=== PATIENT | male | born 1955 | race Caucasian/White ===

== ENCOUNTER 2016-12-18 15:07 | Inpatient (IN) | payer OTHER ==
--- NOTE | 2016-12-18 15:14 | ER Document Report ---
Addendum entered and electronically signed by PALMIRA BAEZ NP 12/18/16 15:46 : Course - Re-evaluation Re-evalutation: 12/18/16 15:46 Patient extremely diaphoretic and pale in lobby. Patient complains of continued upper abdominal pain. marketing compliance manager advised of change in patient's status. Vital signs stable. Room assigned. - Vital Signs Vital signs: Temp Pulse Resp BP Pulse Ox 98.9 F 67 18 140/80 H 98 12/18/16 15:13 12/18/16 15:13 12/18/16 15:13 12/18/16 15:13 12/18/16 15:13 Original Note: ED Medical Screen (RME) - General Stated Complaint: ABDOMINAL PAIN Mode of Arrival: Medic Information source: Patient Notes: Patient presents with nausea, vomiting, and dark tarry stools. Patient with abdominal pain for the past week, mild vomiting started 3 days ago. Patient was given IV fluid bolus per EMS. Patient reports last alcohol intake was earlier today. Patient states pain similar to when he had pancreatitis before. Patient complains of feeling lightheaded. hx: Hypertension, alcoholism, pancreatitis I have greeted and performed a rapid initial assessment of this patient. A comprehensive ED assessment and evaluation of the patient, analysis of test results and completion of the medical decision making process will be conducted by additional ED providers. - Related Data Allergies/Adverse Reactions: No Known Allergies Allergy (Unverified 05/07/14 06:59) Past Medical History - Immunizations Hx Diphtheria, Pertussis, Tetanus Vaccination: Yes - 4 years ago Physical Exam - Abdominal Tenderness: Tender - upper abd pain
--- NOTE | 2016-12-18 16:06 | ER Document Report ---
ED GI/ - General Chief Complaint: Abdominal Pain Stated Complaint: ABDOMINAL PAIN Mode of Arrival: Medic Information source: Patient, Relative, Emergency Med Personnel TRAVEL OUTSIDE OF THE [place] IN LAST 30 DAYS: No - HPI Patient complains to provider of: Abdominal pain, Vomiting Onset: Other - 1 WEEK Timing/Duration: Constant, Waxing and waning Quality of pain: Achy, Dull Severity at maximum: Moderate Severity in ED: Mild Context: Other - TAKING IBUPROFEN FOR PAIN. denies: Bad food, Lifting, Out of the country travel, , Recent trauma Location: Epigastric, LUQ, RUQ Exacerbated by: Denies Relieved by: Denies Similar symptoms previously: No Recently seen / treated by doctor: No - Related Data Allergies/Adverse Reactions: No Known Allergies Allergy (Unverified 05/07/14 06:59) Home Medications: Current Home Medications Lisinopril [Prinivil] 20 mg PO DAILY 12/18/16 [History] Past Medical History - General Information source: Patient - Social History Smoking Status: Current Every Day Smoker Chew tobacco use (# tins/day): No Frequency of alcohol use: Heavy Drug Abuse: Marijuana Lives with: Spouse/Significant other Family History: Reviewed & Not Pertinent Patient has suicidal ideation: No Patient has homicidal ideation: No - Past Medical History Cardiac Medical History: Reports: None Pulmonary Medical History: Reports: None EENT Medical History: Reports: None Neurological Medical History: Reports: None Endocrine Medical History: Reports: None Renal/ Medical History: Reports: None. Denies: Hx Peritoneal Dialysis Malignancy Medical History: Reports None GI Medical History: Reports: None Musculoskeltal Medical History: Reports None Psychiatric Medical History: Reports: None Traumatic Medical History: Reports: None Surgical Hx: Negative - Immunizations Hx Diphtheria, Pertussis, Tetanus Vaccination: Yes - 4 years ago Review of Systems - Review of Systems Constitutional: Weakness. denies: Chills, Fever EENT: No symptoms reported Cardiovascular: No symptoms reported Respiratory: No symptoms reported Gastrointestinal: See HPI Genitourinary: No symptoms reported Male Genitourinary: No symptoms reported Musculoskeletal: No symptoms reported Skin: No symptoms reported Neurological/Psychological: No symptoms reported Physical Exam - Vital signs Vitals: Temp Pulse Resp BP Pulse Ox 98.9 F 67 18 140/80 H 98 12/18/16 15:13 12/18/16 15:13 12/18/16 15:13 12/18/16 15:13 12/18/16 15:13 Interpretation: Hypertensive. No: Tachycardic, Tachypneic, Febrile - General General appearance: Appears well, Alert In distress: None - HEENT Head: Normocephalic Eyes: Normal Conjunctiva: Normal Ears: Normal Nasal: Normal Mouth/Lips: Normal Mucous membranes: Normal Pharynx: Normal Neck: Normal - Respiratory Respiratory status: No respiratory distress Breath sounds: Normal - Cardiovascular Rhythm: Regular Heart sounds: Normal auscultation Murmur: No - Abdominal Inspection: Normal Distension: No distension Bowel sounds: Absent Tenderness: Tender - RUQ, EG, LUQ - Back Back: Normal - Extremities General upper extremity: Normal inspection General lower extremity: Normal inspection - Neurological Neuro grossly intact: Yes Cognition: Normal Orientation: AAOx4 - Psychological Associated symptoms: Normal affect, Normal mood - Skin Skin Temperature: Warm Skin Moisture: Dry Skin Color: Normal Skin Turgor: Elastic Course - Re-evaluation Re-evalutation: 12/18/16 18:46 Patient still complaining of pain, admits to modest improvement after GI cocktail. Results of laboratory and imaging studies discussed with patient. Necessity for CT scan discussed. - Vital Signs Vital signs: Temp Pulse Resp BP Pulse Ox 98.9 F 67 14 140/85 H 95 12/18/16 15:13 12/18/16 15:13 12/18/16 19:01 12/18/16 19:00 12/18/16 19:01 - Laboratory Result Diagrams: 12/18/16 16:00 12/18/16 16:00 Laboratory results interpreted by me: 12/18/16 12/18/16 16:00 16:56 Sodium 126.3 L Chloride 91 L Carbon Dioxide 21 L Urine Ketones TRACE H Urine Blood SMALL H - Diagnostic Test Radiology reviewed: Image reviewed, Reports reviewed - EKG Interpretation by Me EKG shows normal: Sinus rhythm, [place], Intervals, QRS Complexes, ST-T Waves Rate: Normal Rhythm: NSR - Consults DR. VARMA Time consulted: 21:55 Consulted provider: will come to ER Critical Care Note - Critical Care Note Total time excluding time spent on procedures (mins): 30 Comments: LIFE-THREATENING INTRA-ABDOMINAL PATHOLOGY REQUIRING AGGRESSIVE RESUSCITATION AND PROMPT SURGICAL INTERVENTION. Discharge - Discharge Clinical Impression: Perforated abdominal viscus Abdominal pain Qualifiers: Abdominal location: generalized Qualified Code(s): R10.84 - Generalized abdominal pain Condition: Serious Disposition: ADMITTED INPATIENT Admitting Provider: Surgicalist
[2016-12-18] MEDS ORDERED: ONDANSETRON HCL INJ/PF 4 MG/2 ML SDV IV ONE ×2 (16:32→19:58)
[2016-12-18] MEDS ORDERED: HYDROMORPHONE HCL INJ/PF 2 MG/ML AMPULE IV ONE ×3 (16:32→22:13)
[2016-12-18 16:33] LABS: ABSOLUTE BASOPHILS # (AUTO) 0.1 10^3/uL (0.0-0.2); ABSOLUTE LYMPHOCYTES (AUTO) 1.8 10^3/uL (0.5-4.7); ABSOLUTE MONOCYTES (AUTO) 0.4 10^3/uL (0.1-1.4); ABSOLUTE NEUT (AUTO) 7.8 10^3/uL (1.7-8.2); BASOPHILS % (AUTO) 0.7 % (0-2); EOSINOPHILS % (AUTO) 0.4 % (0-6); HEMATOCRIT 44.2 % (37.9-51.0); HEMOGLOBIN 15.3 g/dL (13.5-17.0); HGB HCT DIFFERENCE 1.7; LYMPHOCYTES % (AUTO) 17.7 % (13-45); MEAN CORPUSCULAR HEMOGLOBIN 31.4 pg (27.0-33.4); MEAN CORPUSCULAR HGB CONC 34.5 g/dL (32.0-36.0); MEAN CORPUSCULAR VOLUME 91 fl (80-97); MONOCYTES % (AUTO) 3.5 % (3-13); RED BLOOD COUNT 4.86 10^6/uL (4.35-5.55); RED CELL DISTRIBUTION WIDTH 13.1 % (11.5-14.0); SEGMENTED NEUTROPHILS % (AUTO) 77.7 % (42-78)
[2016-12-18 16:47] LABS: PROTHROMBIN TIME 13.3 SEC (11.4-15.4)
[2016-12-18 16:48] LABS: PARTIAL THROMBOPLASTIN TIME 27.9 SEC (23.5-35.8)
[2016-12-18 16:51] LABS: ALANINE AMINOTRANSFERASE 54 U/L (21-72); ALBUMIN 3.5 g/dL (3.5-5.0); ALCOHOL 54 mg/dL (NONE DETECTED); ALKALINE PHOSPHATASE 93 U/L (38-126); ANION GAP 14 (5-19); ASPARTATE AMINO TRANSFERASE 56 U/L (17-59); BILIRUBIN,TOTAL 0.6 mg/dL (0.2-1.3); BLOOD UREA NITROGEN 9 mg/dL (7-20); CALCIUM 9.4 mg/dL (8.4-10.2); CARBON DIOXIDE 21 mmol/L (22-30); CHLORIDE 91 mmol/L (98-107); CREATINE KINASE 86 U/L (55-170); CREATININE RESULT 0.78 mg/dL (0.52-1.25); GLUCOSE 91 mg/dL (75-110); LIPASE 211.2 U/L (23-300); MAGNESIUM 1.8 mg/dL (1.6-2.3); POTASSIUM 4.4 mmol/L (3.6-5.0); SODIUM 126.3 mmol/L (137-145); TOTAL PROTEIN 6.6 g/dL (6.3-8.2)
[2016-12-18 17:01] LABS: CREATINE KINASE MB 0.78 ng/mL (<4.55)
[2016-12-18 17:02] LABS: TROPONIN I < 0.012 ng/mL
[2016-12-18] MEDS ORDERED: NORMAL SALINE 1000 ML 1,000 ML IV ONE ×2 (17:34→22:12)
[2016-12-18 17:37] LABS: APPEARANCE,URINE CLEAR; BILIRUBIN,URINE NEGATIVE (NEGATIVE); GLUCOSE, URINE NEGATIVE (NEGATIVE); KETONES,URINE TRACE mg/dL (NEGATIVE); LEUKOCYTE ESTERASE,URINE NEGATIVE (NEGATIVE); NITRITE,URINE NEGATIVE (NEGATIVE); PROTEIN,URINE NEGATIVE (NEGATIVE); URINE SPECIFIC GRAVITY 1.011; UROBILINOGEN,URINE NEGATIVE mg/dL (<2.0)
[2016-12-18] MEDS ORDERED: MAG HYDROX/AL HYDROX/SIMETH SUSP 30 ML UDCUP PO ONE (18:11)
[2016-12-18] MEDS ORDERED: METOCLOPRAMIDE HCL ORAL SOLN 10 MG/10 ML UDCUP PO ONE (18:11)
[2016-12-18] MEDS ORDERED: LIDOCAINE 2% VISCOUS SOLN 20 ML UDCUP PO ONE (18:11)
--- NOTE | 2016-12-18 21:53 | EKG REPORT ---
SEVERITY:- NORMAL ECG - SINUS RHYTHM : Confirmed by: Rose Crowley 18-Dec-2016 21:52:39
[2016-12-18] MEDS ORDERED: CLINDAMYCIN 600 MG/D5W RTU 50 ML IV ONE (21:58)
[2016-12-18] MEDS ORDERED: LEVOFLOXACIN 750 MG/D5W RTU 150 ML IV ONE (21:58)
[2016-12-18] MEDS ORDERED: HYDROMORPHONE HCL INJ/PF 2 MG/ML AMPULE ONE (22:16)
[2016-12-18] MEDS ORDERED: LIDOCAINE 2% URO-JET 5 ML KIT MM ONE (22:19)
--- NOTE | 2016-12-18 22:31 | PDOC H&P ---
History of Present Illness Admission Date/PCP: 12/18/16 22:08 Patient complains of: Abdominal pain History of Present Illness: RAPHAEL BROWN is a 61 year old male who presents to the emergency department via ground transportation complaining of acute onset abdominal pain today. He actually has been feeling poorly for over a week. He's had nausea several episodes of vomiting and dark tarry stools. She has a long history of alcoholism, smoking abuse, history of pancreatitis in the 80s 2. He denies history of peptic ulcer disease, and is never had a colonoscopy. Seen in the emergency department for the last 6 hours complaining of abdominal pain was worked up and found to have unremarkable labs but a tender abdomen. Acute abdominal series was unremarkable but a CT scan of the abdomen and pelvis with oral contrast shows extravasation of oral contrast around the liver. Surgery was consulted, patient advised admission and need for emergent exploratory laparotomy. The patient received 1 L of fluid for hypotension, and responded satisfactorily. Past Medical History Cardiac Medical History: Reports: None, Hypertension Pulmonary Medical History: Reports: None EENT Medical History: Reports: None Neurological Medical History: Reports: None Endocrine Medical History: Reports: None Renal/ Medical History: Reports: None Malignancy Medical History: Reports: None GI Medical History: Reports: None Musculoskeltal Medical History: Reports: None Psychiatric Medical History: Reports: None Traumatic Medical History: Reports: None Infectious Medical History: Reports: Hepatitis C Past Surgical History Past Surgical History: Reports: Other - Bilateral mastoid surgery Social History Lives with: Spouse/Significant other Smoking Status: Current Every Day Smoker Amount of Alcoholic Beverages Per Day: having; patient drinks 8-12 beers a day Family History Family History: Reviewed & Not Pertinent Parental Family History Reviewed: Yes Children Family History Reviewed: Yes Sibling(s) Family History Reviewed.: Yes Medication/Allergy Home Medications: Lisinopril [Prinivil] 20 mg PO DAILY 12/18/16 Allergies/Adverse Reactions: No Known Allergies Allergy (Unverified 05/07/14 06:59) Review of Systems Constitutional: PRESENT: weight loss Ears: ABSENT: hearing changes Cardiovascular: ABSENT: chest pain, dyspnea on exertion, edema, orthropnea, palpitations Respiratory: PRESENT: dyspnea Gastrointestinal: PRESENT: nausea, vomiting Genitourinary: ABSENT: dysuria, hematuria Musculoskeletal: PRESENT: as per HPI, back pain, other - She reports chronic back pain. ABSENT: joint swelling Psychiatric: ABSENT: anxiety, depression, homidical ideation, suicidal ideation Physical Exam Vital Signs: Temp Pulse Resp BP Pulse Ox 98.9 F 67 14 140/85 H 95 12/18/16 15:13 12/18/16 15:13 12/18/16 19:01 12/18/16 19:00 12/18/16 19:01 General appearance: PRESENT: severe distress Head exam: PRESENT: normocephalic Eye exam: PRESENT: EOMI Ear exam: PRESENT: normal external ear exam Teeth exam: PRESENT: dental caries Neck exam: PRESENT: full ROM Respiratory exam: PRESENT: decreased breath sounds Cardiovascular exam: PRESENT: RRR Pulses: PRESENT: normal carotid pulses, +1 pedal pulses bilateral, +2 pedal pulses bilateral Vascular exam: PRESENT: normal capillary refill GI/Abdominal exam: PRESENT: other - Peritoneal signs with rigidity. Hypoactive bowel sounds. Rectal exam: PRESENT: deferred Extremities exam: PRESENT: full ROM Musculoskeletal exam: PRESENT: other - Lower back pain, chronic Neurological exam: PRESENT: oriented to person, oriented to place, oriented to time Psychiatric exam: PRESENT: agitated Skin exam: PRESENT: dry Results Impressions: Acute Abdomen Series 12/18/16 16:33 IMPRESSION: NO RADIOGRAPHIC EVIDENCE FOR ACUTE ABDOMINAL DISEASE. Abdomen/Pelvis CT 12/18/16 18:45 IMPRESSION: 1. Bowel perforation. Free air and contrast within the abdomen. Based on the appearance, suspect proximal GI tract viscus perforation. Possibly duodenal or gastric ulcer or proximal small bowel. Pertinent findings on the imaging study reported as a CRITICAL RESULT to LUPE HERNANDEZ MD at21:54 on 12/18/2016. Category of Critical Result: Bowel perforation. Surgeons addendum: Significant oral contrast in the peritoneal cavity, particularly right upper quadrant; inflammatory changes right upper quadrant mesentery; atherosclerotic aortic disease; large prostate Assessment & Plan - Diagnosis (1) Perforated abdominal viscus Is this a current diagnosis for this admission?: YesPlan: The clinical and radiographic findings are consistent with a gastrointestinal perforation likely a proximal source. Patient has peritonitis, and now septic shock area is being resuscitated, will be taken emergently to the operating room for exploratory laparotomy and necessary surgery. We have explained the risks benefits and alternatives of planned procedure to the patient. I believe he understands and agrees to proceed, however patient's level comprehension is limited. (2) Alcohol abuse Is this a current diagnosis for this admission?: YesPlan: Patient is a confirmed alcoholic. (3) Abuse of smoked substance Is this a current diagnosis for this admission?: YesPlan: Patient smokes cigarettes daily - Time Time Spent: 30 to 50 Minutes Critical Time spent with patient: 15-24 minutes Anticipated discharge: SNF - Inpatient Certification Based on my medical assessment, after consideration of the patient's comorbidities, presenting symptoms, or acuity I expect that the services needed warrant INPATIENT care.: Yes I certify that my determination is in accordance with my understanding of Medicare's requirements for reasonable and necessary INPATIENT services [42 CFR 412.3e].: Yes Medical Necessity: Need For IV Fluids, Need for Pain Control, Need for IV Antibiotics, Need for Surgery
[2016-12-18] MEDS ORDERED: ACETAMINOPHEN 100 ML IV ONE (22:58)
[2016-12-18] MEDS ORDERED: PROPOFOL INJ 200 MG/20 ML VIAL IV ONE (22:58)
[2016-12-18] MEDS ORDERED: MIDAZOLAM 2 MG/2 ML INJ ONE (22:58)
[2016-12-18] MEDS ORDERED: FENTANYL CITRATE INJ/PF 250 MCG/5 ML AMPULE ONE (22:58)
[2016-12-18] MEDS ORDERED: MORPHINE SULFATE 10 MG/ML INJ ONE (22:59)
[2016-12-19] MEDS ORDERED: ONDANSETRON HCL INJ/PF 4 MG/2 ML SDV IV PRN (00:29)
[2016-12-19] MEDS ORDERED: MORPHINE SULFATE 10 MG/ML INJ IV PRN (00:29)
[2016-12-19] MEDS ORDERED: NORMAL SALINE INJ/PF 0.9% 10 ML SDV IV PRN (00:30)
--- NOTE | 2016-12-19 00:43 | Operative Report ---
Operative Report DATE OF SURGERY: 12/19/16 PREOPERATIVE DIAGNOSIS: Perforated viscus with peritonitis and septic shock POSTOPERATIVE DIAGNOSIS: Same; perforated duodenal ulcer OPERATION: 1. Central venous access catheter insertion left subclavian position. 2. Exploratory laparotomy. 3. Peritoneal washout. 4. David patch repair of duodenal ulcer. 5. Biopsy of duodenal wall. 6. Drain placement right upper quadrant SURGEON: ALEM VARMA ANESTHESIA: GA TISSUE REMOVED OR ALTERED: Fragment of duodenal ulcer wall COMPLICATIONS: None ESTIMATED BLOOD LOSS: 50 mL INTRAOPERATIVE FINDINGS: CC below PROCEDURE: Patient was taken to the operating room on the emergency department where he underwent general anesthesia. Vertical plan and surgical timeout were conducted. Left subclavian area was chosen for central line placement. Using the Seldinger technique, triple-lumen central venous access catheter so the left subclavian vein without difficulty. There was excellent blood flow through all 3 lm. Catheters flushed with saline, and secured to skin with 2 silk suture in 2 locations, Biopatch and sterile dressing applied. The abdomen was exposed, prepped and draped sterile fashion. It was opened through a standard midline incision above and below the umbilicus. Upon entry into the peritoneal cavity, there was a significant amount of cloudy non-foul smelling fluid. We irrigated out all the fluid and irrigated the peritoneal cavity out as well with approximately 1 L of saline. The nasogastric tube was confirmed to be in the lumen of the stomach. There was a moderate amount of fibrinous exudate throughout the mesentery was peeled off uneventfully. We ran the small intestine from the ligament of Treitz to the terminal ileum and there was no evidence of perforation. We also inspected the colon including the transverse colon and the rectum and although there was some adhesions to the rectum and the intra-abdominal wall the pelvis, there was no evidence of perforation. We detected the problem was in the right upper quadrant and going towards the epigastric area area the gastro-tissue was adhesed at her and so the gallbladder was from this area using a combination of blunt and electrocautery dissection. Once the gallbladder was elevated off of the first portion of the duodenum, we could see entering the distal end of the first portion of the duodenum a 1-1/2-2 cm hole in the anterior duodenal wall. With a duodenal ulcer. The wall was thickened and the mucosa exophytic and inflamed. Fragments of the wall and duodenum were sharply debrided and sent to pathology as portions of duodenal wall. We had anesthesia pull the nasogastric tube back so the tip was in the greater curvature of the stomach. I felt that primary closure using a David patch technique would be appropriate in this situation. The duodenum was closed vertically with 8 interrupted 3-0 PDS sutures. Then took a tongue of omentum and placed in a retrograde fashion over the repair and utilized the remaining long ends of the sutures previously placed to secure the omentum to the repair and a patch fashion. A large drain was placed in the right upper quadrant abdominal wall attempted position and secured to the skin with 2-0 Prolene suture. We now irrigated peritoneal cavity with 4 L of warm saline, irrigating vigorously under both diaphragms in the pelvis. The final solution was quite clear. Sponge and counts correct. We felt the operation was complete. The incision was closed with 2 double stranded #1 PDS sutures, and skin approximating niles. Drain of double suction. Patient tolerated procedure well taken to the intensive care unit intubated in guarded but stable condition. The patient experienced no hypotension during the case, received 2400 mL of crystalloid, no blood nor pressors.
[2016-12-19] MEDS: PROPOFOL 100 ML IV PRN ×4 (01:32→19:28)
[2016-12-19] MEDS: NORMAL SALINE 1000 ML 1,000 ML IV PRN ×2 (01:32→11:15)
[2016-12-19 07:06] LABS: ABSOLUTE LYMPHOCYTES (AUTO) 0.4 10^3/uL (0.5-4.7); ABSOLUTE MONOCYTES (AUTO) 0.2 10^3/uL (0.1-1.4); ABSOLUTE NEUT (AUTO) 3.2 10^3/uL (1.7-8.2); BASOPHILS % (AUTO) 0.2 % (0-2); EOSINOPHILS % (AUTO) 0.1 % (0-6); HEMATOCRIT 31.3 % (37.9-51.0); HGB HCT DIFFERENCE 0.5; MEAN CORPUSCULAR HGB CONC 33.9 g/dL (32.0-36.0); MEAN CORPUSCULAR VOLUME 91 fl (80-97); MONOCYTES % (AUTO) 4.3 % (3-13); RED BLOOD COUNT 3.43 10^6/uL (4.35-5.55); RED CELL DISTRIBUTION WIDTH 12.9 % (11.5-14.0); SEGMENTED NEUTROPHILS % (AUTO) 85.4 % (42-78); WHITE BLOOD COUNT 3.7 10^3/uL (4.0-10.5)
[2016-12-19 07:16] LABS: ARTERIAL BLOOD BASE EXCESS -7.6 mmol/L; ARTERIAL BLOOD O2 SATURATION 95.4 % (94-98)
[2016-12-19 07:19] LABS: ALANINE AMINOTRANSFERASE 48 U/L (21-72); ALBUMIN 1.5 g/dL (3.5-5.0); ALKALINE PHOSPHATASE 32 U/L (38-126); ANION GAP 5 (5-19); ASPARTATE AMINO TRANSFERASE 64 U/L (17-59); BILIRUBIN,TOTAL 0.5 mg/dL (0.2-1.3); BLOOD UREA NITROGEN 11 mg/dL (7-20); CARBON DIOXIDE 20 mmol/L (22-30); CHLORIDE 102 mmol/L (98-107); CREATININE RESULT 0.88 mg/dL (0.52-1.25); GLUCOSE 81 mg/dL (75-110); SODIUM 126.7 mmol/L (137-145); TOTAL PROTEIN 3.7 g/dL (6.3-8.2)
[2016-12-19 07:24] LABS: HEMOGLOBIN 10.6 g/dL (13.5-17.0)
[2016-12-19 07:36] LABS: CALCIUM 6.8 mg/dL (8.4-10.2)
[2016-12-19] MEDS ORDERED: NORMAL SALINE 1000 ML 1,000 ML IV ONE ×3 (08:30→09:30)
[2016-12-19] MEDS ORDERED: DEXTROSE 5%-WATER 250 ML with NOREPINEPHRINE BITARTRATE 4 MG IV PRN ×2 (08:41)
[2016-12-19] MEDS ORDERED: NOREPINEPHRINE BITARTRATE INJ/PF 4 MG/4 ML SDV IV ONE (08:43)
[2016-12-19] MEDS ORDERED: FENTANYL CITRATE INJ/PF 100 MCG/2 ML AMPUL IV ONE (08:47)
[2016-12-19] MEDS ORDERED: GLUCAGON,HUMAN RECOMB 1 MG INJ IM PRN (08:48)
[2016-12-19] MEDS ORDERED: DEXTROSE 50%-WATER 25 GM/50 ML DISP.SYRIN IV PRN ×2 (08:48)
[2016-12-19] MEDS ORDERED: INSULIN LISPRO 100 UNIT/ML 3 ML VIAL SUBCUT PRN (08:48)
[2016-12-19] MEDS ORDERED: DEXTROSE 40% GEL 15 GM TUBE PO PRN ×2 (08:48)
[2016-12-19] MEDS ORDERED: MIDAZOLAM HCL 100 ML IV PRN (08:59)
[2016-12-19] MEDS ORDERED: IMIPENEM/CILASTATIN SODIUM 1,000 MG in NORMAL SALINE 250 ML IV SCH (09:00)
[2016-12-19] MEDS ORDERED: PHARMACY COMMUNICATION ORDER MC NR (09:00)
[2016-12-19] MEDS: PANTOPRAZOLE SODIUM 40 MG VIAL IV SCH ×2 (09:42→21:44)
[2016-12-19] MEDS: MAGNESIUM SULFATE/D5W 100 ML IV SCH ×2 (09:42→11:13)
[2016-12-19] MEDS: LORAZEPAM INJ 2 MG/1 ML VIAL IV SCH ×3 (09:43→21:53)
[2016-12-19] MEDS: ALBUMIN HUMAN 50 ML IV SCH ×4 (09:43→14:36)
[2016-12-19] MEDS ORDERED: ERTAPENEM SODIUM 1 GM in NORMAL SALINE 50 ML IV SCH (10:00)
--- NOTE | 2016-12-19 10:04 | PDOC CONSULTATION ---
Consultation Consult Date: 12/19/16 Attending physician:: ALEM VARMA Consult reason:: Medical management History of Present Illness Admission Date/PCP: 12/18/16 22:08 History of Present Illness: History of present illness is obtained from review of the medical record due to patient currently being intubated and sedated. Patient "presents to the emergency department via ground transportation complaining of acute onset abdominal pain today. He actually has been feeling poorly for over a week. He' s had nausea several episodes of vomiting and dark tarry stools. She has a long history of alcoholism, smoking abuse, history of pancreatitis in the 80s 2. He denies history of peptic ulcer disease, and is never had a colonoscopy. Seen in the emergency department for the last 6 hours complaining of abdominal pain was worked up and found to have unremarkable labs but a tender abdomen. Acute abdominal series was unremarkable but a CT scan of the abdomen and pelvis with oral contrast shows extravasation of oral contrast around the liver. Surgery was consulted, patient advised admission and need for emergent exploratory laparotomy. The patient received 1 L of fluid for hypotension, and responded satisfactorily." Patient's up, went to the OR and was found to have a perforated duodenal ulcer which was treated surgically please see operative note for this. Past Medical History Cardiac Medical History: Reports: None, Hypertension Pulmonary Medical History: Reports: None EENT Medical History: Reports: None Neurological Medical History: Reports: None Endocrine Medical History: Reports: None Renal/ Medical History: Reports: None Malignancy Medical History: Reports: None GI Medical History: Reports: None Musculoskeltal Medical History: Reports: None Psychiatric Medical History: Reports: None Traumatic Medical History: Reports: None Infectious Medical History: Reports: Hepatitis C Past Surgical History Past Surgical History: No expiratory laparotomy with duodenal ulceration repair Past Surgical History: Reports: Other - Bilateral mastoid surgery Social History Lives with: Spouse/Significant other Smoking Status: Current Every Day Smoker Frequency of Alcohol Use: Heavy Hx Recreational Drug Use: No - unknown Hx Prescription Drug Abuse: No - Advance Directive Resuscitation Status: Other - Unable to obtain secondary to intubated and sedated status presumed full code Surrogate healthcare decision maker:: Jayleen Judson is listed as person to contact. Family History Family History: Other - Able to obtain secondary to intubated and sedated status Parental Family History Reviewed: No Children Family History Reviewed: No Sibling(s) Family History Reviewed.: No Medication/Allergy Home Medications: Lisinopril [Prinivil] 20 mg PO DAILY 12/18/16 Allergies/Adverse Reactions: No Known Allergies Allergy (Unverified 05/07/14 06:59) Review of Systems ROS unobtainable: Due to endotracheal tube Physical Exam Vital Signs: Temp Pulse Resp BP Pulse Ox 98.2 F 94 32 H 114/58 L 96 12/19/16 07:51 12/19/16 07:51 12/19/16 07:51 12/19/16 07:51 12/19/16 07:51 Intake & Output 12/18/16 12/19/16 12/20/16 06:59 06:59 06:59 Intake Total 5009 Output Total 3890 60 Balance 1119 -60 Weight 55.3 kg General appearance: PRESENT: no acute distress, well-developed, well-nourished Head exam: PRESENT: atraumatic, normocephalic Head Image: 1 - 0.5 cm keratotic lesion Eye exam: PRESENT: conjunctiva pale, PERRLA. ABSENT: conjunctival injection, scleral icterus Ear exam: PRESENT: normal external ear exam Mouth exam: PRESENT: dry mucosa Neck exam: ABSENT: JVD, lymphadenopathy, thyromegaly, tracheal deviation Respiratory exam: PRESENT: rhonchi, unlabored, wheezes - Light end expiratory. ABSENT: accessory muscle use, clear to auscultation pierre, crackles, tachypnea Cardiovascular exam: PRESENT: RRR, +S1, +S2. ABSENT: diastolic murmur, gallop, rubs, systolic murmur Pulses: PRESENT: +1 pedal pulses bilateral Vascular exam: PRESENT: pallor GI/Abdominal exam: PRESENT: distended, firm, rigid, other - absent bowel sounds , midline surgical incision with waffle dressing, KAREN drain right side Rectal exam: PRESENT: deferred Gentrourinary exam: PRESENT: indwelling catheter Extremities exam: ABSENT: clubbing, pedal edema Neurological exam: PRESENT: other - Intubated and sedated Psychiatric exam: PRESENT: other - Intubated and sedated Results Laboratory Results: 12/19/16 06:45 12/19/16 06:45 12/19/16 12/19/16 12/19/16 06:45 06:45 07:12 WBC 3.7 L RBC 3.43 L Hgb 10.6 L D Hct 31.3 L MCV 91 MCH 31.0 MCHC 33.9 RDW 12.9 Plt Count 241 Seg Neutrophils % 85.4 H Lymphocytes % 10.0 L Monocytes % 4.3 Eosinophils % 0.1 Basophils % 0.2 Absolute Neutrophils 3.2 Absolute Lymphocytes 0.4 L Absolute Monocytes 0.2 Absolute Eosinophils 0.0 Absolute Basophils 0.0 Carbonic Acid 1.21 HCO3/H2CO3 Ratio 15:1 ABG pH 7.28 L ABG pCO2 40.1 ABG pO2 85.5 ABG HCO3 18.5 L ABG O2 Saturation 95.4 ABG Base Excess -7.6 FiO2 40% Sodium 126.7 L Potassium 5.0 Chloride 102 Carbon Dioxide 20 L Anion Gap 5 BUN 11 Creatinine 0.88 Est GFR ( Amer) > 60 Est GFR (Non-Af Amer) > 60 Glucose 81 Calcium 6.8 L* Total Bilirubin 0.5 AST 64 H ALT 48 Alkaline Phosphatase 32 L Total Protein 3.7 L Albumin 1.5 L Impressions: Acute Abdomen Series 12/18/16 16:33 IMPRESSION: NO RADIOGRAPHIC EVIDENCE FOR ACUTE ABDOMINAL DISEASE. Abdomen/Pelvis CT 12/18/16 18:45 IMPRESSION: 1. Bowel perforation. Free air and contrast within the abdomen. Based on the appearance, suspect proximal GI tract viscus perforation. Possibly duodenal or gastric ulcer or proximal small bowel. Pertinent findings on the imaging study reported as a CRITICAL RESULT to LUPE HERNANDEZ MD at21:54 on 12/18/2016. Category of Critical Result: Bowel perforation. Chest X-Ray 12/19/16 00:31 IMPRESSION: 1. LIFE LINES DESCRIBED. NO PNEUMOTHORAX FOLLOWING CENTRAL LINE PLACEMENT. THE ENDOTRACHEAL TUBE TIP IS AT THE RIGHT MAINSTEM BRONCHUS. WOULD RECOMMEND PULLING THE TUBE BACK BY 3-4 CM. 2. LEFT BASILAR ATELECTASIS. Assessment & Plan - Diagnosis (1) Septic shock Is this a current diagnosis for this admission?: YesPlan: Patient currently on levophed. Will give patient albumin. Patient initiated on imipenem. Attempt to maintain a map greater than 65. Continue to check CVP every 4 hours. (2) Acute perforated duodenal ulcer with hemorrhage Is this a current diagnosis for this admission?: YesPlan: Defer to surgical team for diagnosis and management of conditions associated with patient's acute perforation and subsequent peritonitis. (3) Acute respiratory failure following trauma and surgery Is this a current diagnosis for this admission?: YesPlan: We'll consult Dr. weiner of pulmonary medicine for ventilator management. Initiate VAP Bundle. (4) Peritonitis (acute) generalized Is this a current diagnosis for this admission?: YesPlan: Due to patient's left threatening peritonitis will place patient on imipenem renally adjusted. (5) Leukopenia Qualifiers: Leukopenia type: unspecified Qualified Code(s): D72.819 - Decreased white blood cell count, unspecified Is this a current diagnosis for this admission?: YesPlan: Likely combined secondary to sepsis and underlying alcohol abuse. Continue to monitor. (6) Atherosclerosis of abdominal aorta Is this a current diagnosis for this admission?: Yes (7) Tobacco abuse Is this a current diagnosis for this admission?: YesPlan: We'll give nicotine patch once patient is awake (8) Hiatal hernia Is this a current diagnosis for this admission?: Yes (9) Hyponatremia Is this a current diagnosis for this admission?: YesPlan: Likely secondary to intravascular volume depletion. Will repeat BMP. Will attempt to not increase his sodium greater than 8 mEq of the next 24 hours. (10) Hypoalbuminemia Is this a current diagnosis for this admission?: YesPlan: Have consulted dietary. Will likely need TPN support. (11) COPD (chronic obstructive pulmonary disease) Qualifiers: COPD type: unspecified COPD Qualified Code(s): J44.9 - Chronic obstructive pulmonary disease, unspecified Is this a current diagnosis for this admission?: YesPlan: Patient likely has COPD due to his long history of smoking. Will place patient on duo nebs. Obtain a sputum and continue to monitor. (12) protein calorie malnourishment Is this a current diagnosis for this admission?: YesPlan: Have consulted dietary. With his albumin have great concerns over patient healing, and weaning from the ventilator. (13) DVT prophylaxis Is this a current diagnosis for this admission?: YesPlan: Defer chemical prophylaxis to surgical team. Place GREY engel and SCDs. (14) GI prophylaxis Is this a current diagnosis for this admission?: YesPlan: Protonix 40 mg IV twice a day - Time Critical Time spent with patient: 35 or more minutes Medications reviewed and adjusted accordingly: Yes
[2016-12-19] MEDS: IMIPENEM/CILASTATIN SODIUM 500 MG in NORMAL SALINE 100 ML IV SCH ×2 (11:12→19:28)
--- NOTE | 2016-12-19 12:13 | PDOC CONSULTATION ---
Consultation Consult Date: 12/19/16 Attending physician:: ALEM VARMA Consult reason:: Respiratory failure History of Present Illness Admission Date/PCP: 12/18/16 22:08 History of Present Illness: History of present illness is obtained from review of the medical record due to patient currently being intubated and sedated. Patient "presents to the emergency department via ground transportation complaining of acute onset abdominal pain today. He actually has been feeling poorly for over a week. He' s had nausea several episodes of vomiting and dark tarry stools. She has a long history of alcoholism, smoking abuse, history of pancreatitis in the 80s 2. He denies history of peptic ulcer disease, and is never had a colonoscopy. Seen in the emergency department for the last 6 hours complaining of abdominal pain was worked up and found to have unremarkable labs but a tender abdomen. Acute abdominal series was unremarkable but a CT scan of the abdomen and pelvis with oral contrast shows extravasation of oral contrast around the liver. Surgery was consulted, patient advised admission and need for emergent exploratory laparotomy. The patient received 1 L of fluid for hypotension, and responded satisfactorily." Patient's up, went to the OR and was found to have a perforated duodenal ulcer which was treated surgically please see operative note for this. Patient subsequently been returned to the ICU mechanically ventilated with mild metabolic acidosis hyponatremia hypocalcemia hypomagnesemia. Reportedly has extensive history of smoking in the past. Past Medical History Cardiac Medical History: Reports: None, Hypertension Pulmonary Medical History: Reports: None EENT Medical History: Reports: None Neurological Medical History: Reports: None Endocrine Medical History: Reports: None Renal/ Medical History: Reports: None Malignancy Medical History: Reports: None GI Medical History: Reports: None Musculoskeltal Medical History: Reports: None Psychiatric Medical History: Reports: None Traumatic Medical History: Reports: None Infectious Medical History: Reports: Hepatitis C Past Surgical History Past Surgical History: Reports: Other - Bilateral mastoid surgery Social History Information Source: [facility] Records Lives with: Spouse/Significant other Smoking Status: Smoker,Current Status Unk Frequency of Alcohol Use: Heavy Hx Recreational Drug Use: No - unknown Hx Prescription Drug Abuse: No - Advance Directive Resuscitation Status: Full Code Family History Family History: Reviewed & Not Pertinent Parental Family History Reviewed: No Children Family History Reviewed: No Sibling(s) Family History Reviewed.: No Medication/Allergy Home Medications: Lisinopril [Prinivil] 20 mg PO DAILY 12/18/16 Allergies/Adverse Reactions: No Known Allergies Allergy (Unverified 05/07/14 06:59) Review of Systems ROS unobtainable: Due to endotracheal tube Physical Exam Vital Signs: Temp Pulse Resp BP Pulse Ox 98.2 F 94 32 H 114/58 L 96 12/19/16 07:51 12/19/16 07:51 12/19/16 07:51 12/19/16 07:51 12/19/16 07:51 Intake & Output 12/18/16 12/19/16 12/20/16 06:59 06:59 06:59 Intake Total 5009 Output Total 3890 60 Balance 1119 -60 Weight 55.3 kg General appearance: PRESENT: disheveled, well-developed, well-nourished Head exam: PRESENT: atraumatic, normocephalic Eye exam: PRESENT: conjunctiva pale Mouth exam: PRESENT: dry mucosa, neck supple, tongue midline, other - Endotracheal tube in place Neck exam: ABSENT: carotid bruit, JVD, lymphadenopathy, thyromegaly Respiratory exam: PRESENT: decreased breath sounds, prolonged expiratory phas, rhonchi, unlabored, wheezes Cardiovascular exam: PRESENT: RRR, +S1, +S2 Pulses: PRESENT: normal radial pulses GI/Abdominal exam: PRESENT: other - Status post surgery dressing dry and intact Rectal exam: PRESENT: deferred Gentrourinary exam: PRESENT: indwelling catheter Musculoskeletal exam: PRESENT: normal inspection Skin exam: PRESENT: dry, warm Results Laboratory Results: 12/19/16 06:45 12/19/16 06:45 12/19/16 12/19/16 12/19/16 06:45 06:45 07:12 WBC 3.7 L RBC 3.43 L Hgb 10.6 L D Hct 31.3 L MCV 91 MCH 31.0 MCHC 33.9 RDW 12.9 Plt Count 241 Seg Neutrophils % 85.4 H Lymphocytes % 10.0 L Monocytes % 4.3 Eosinophils % 0.1 Basophils % 0.2 Absolute Neutrophils 3.2 Absolute Lymphocytes 0.4 L Absolute Monocytes 0.2 Absolute Eosinophils 0.0 Absolute Basophils 0.0 Carbonic Acid 1.21 HCO3/H2CO3 Ratio 15:1 ABG pH 7.28 L ABG pCO2 40.1 ABG pO2 85.5 ABG HCO3 18.5 L ABG O2 Saturation 95.4 ABG Base Excess -7.6 FiO2 40% Sodium 126.7 L Potassium 5.0 Chloride 102 Carbon Dioxide 20 L Anion Gap 5 BUN 11 Creatinine 0.88 Est GFR ( Amer) > 60 Est GFR (Non-Af Amer) > 60 Glucose 81 Calcium 6.8 L* Total Bilirubin 0.5 AST 64 H ALT 48 Alkaline Phosphatase 32 L Total Protein 3.7 L Albumin 1.5 L Impressions: Acute Abdomen Series 12/18/16 16:33 IMPRESSION: NO RADIOGRAPHIC EVIDENCE FOR ACUTE ABDOMINAL DISEASE. Abdomen/Pelvis CT 12/18/16 18:45 IMPRESSION: 1. Bowel perforation. Free air and contrast within the abdomen. Based on the appearance, suspect proximal GI tract viscus perforation. Possibly duodenal or gastric ulcer or proximal small bowel. Pertinent findings on the imaging study reported as a CRITICAL RESULT to LUPE HERNANDEZ MD at21:54 on 12/18/2016. Category of Critical Result: Bowel perforation. Chest X-Ray 12/19/16 00:31 IMPRESSION: 1. LIFE LINES DESCRIBED. NO PNEUMOTHORAX FOLLOWING CENTRAL LINE PLACEMENT. THE ENDOTRACHEAL TUBE TIP IS AT THE RIGHT MAINSTEM BRONCHUS. WOULD RECOMMEND PULLING THE TUBE BACK BY 3-4 CM. 2. LEFT BASILAR ATELECTASIS. Assessment & Plan - Diagnosis (1) Acute respiratory failure following trauma and surgery Is this a current diagnosis for this admission?: Yes (2) COPD (chronic obstructive pulmonary disease) Qualifiers: COPD type: unspecified COPD Qualified Code(s): J44.9 - Chronic obstructive pulmonary disease, unspecified Is this a current diagnosis for this admission?: YesPlan: Extensive smoking history continue current bronchodilator therapy (3) Hyponatremia Is this a current diagnosis for this admission?: YesPlan: Follow closely limited free water no need for hypertonic saline at this time (4) Hypocalcemia Is this a current diagnosis for this admission?: YesPlan: Corrected for hypoalbuminemia serum calcium 8.80 (5) Hypoalbuminemia Is this a current diagnosis for this admission?: Yes (6) Septic shock Is this a current diagnosis for this admission?: YesPlan: Continue current vasopressor agents - Time Critical Time spent with patient: 35 or more minutes - 55 minutes
[2016-12-19 12:22] LABS: ARTERIAL BLOOD O2 SATURATION 97.4 % (94-98)
[2016-12-19] MEDS: MAGNESIUM SULFATE/D5W 1 GM/100 ML RTUPB IV SCH ×3 (12:31→14:46)
[2016-12-19] MEDS: IPRATROPIUM/ALBUTEROL 0.5-2.5 MG/3 ML AMPUL NEB SCH ×2 (14:05→20:23)
[2016-12-19 14:45] LABS: ABSOLUTE LYMPHOCYTES (AUTO) 0.6 10^3/uL (0.5-4.7); ABSOLUTE MONOCYTES (AUTO) 0.4 10^3/uL (0.1-1.4); ABSOLUTE NEUT (AUTO) 6.6 10^3/uL (1.7-8.2); BASOPHILS % (AUTO) 0.1 % (0-2); HEMATOCRIT 28.6 % (37.9-51.0); HEMOGLOBIN 9.7 g/dL (13.5-17.0); HGB HCT DIFFERENCE 0.5; LYMPHOCYTES % (AUTO) 8.3 % (13-45); MEAN CORPUSCULAR HGB CONC 33.9 g/dL (32.0-36.0); MEAN CORPUSCULAR VOLUME 91 fl (80-97); MONOCYTES % (AUTO) 5.8 % (3-13); RED BLOOD COUNT 3.13 10^6/uL (4.35-5.55); SEGMENTED NEUTROPHILS % (AUTO) 85.8 % (42-78)
[2016-12-19 14:54] LABS: WHITE BLOOD COUNT 7.7 10^3/uL (4.0-10.5)
[2016-12-19] MEDS ORDERED: PHENYLEPHRINE HCL INJ/PF 10 MG/1 ML SDV ONE (15:05)
[2016-12-19] MEDS ORDERED: ROCURONIUM BROMIDE INJ 50 MG/5 ML VIAL IV ONE (15:05)
[2016-12-19] MEDS ORDERED: SUCCINYLCHOLINE CHLORIDE INJ 200 MG/10 ML VIAL ONE (15:05)
[2016-12-19 15:07] LABS: ANION GAP 6 (5-19); BLOOD UREA NITROGEN 9 mg/dL (7-20); CALCIUM 7.4 mg/dL (8.4-10.2); CARBON DIOXIDE 17 mmol/L (22-30); CHLORIDE 104 mmol/L (98-107); CREATININE RESULT 0.68 mg/dL (0.52-1.25); GLUCOSE 120 mg/dL (75-110); POTASSIUM 4.4 mmol/L (3.6-5.0); SODIUM 126.8 mmol/L (137-145)
[2016-12-19] MEDS: FENTANYL CITRATE INJ/PF 100 MCG/2 ML AMPUL IV PRN (21:48)
[2016-12-20] MEDS: IMIPENEM/CILASTATIN SODIUM 500 MG in NORMAL SALINE 100 ML IV SCH ×5 (00:11→23:31)
[2016-12-20] MEDS: IPRATROPIUM/ALBUTEROL 0.5-2.5 MG/3 ML AMPUL NEB SCH ×4 (02:27→19:39)
[2016-12-20] MEDS: LORAZEPAM INJ 2 MG/1 ML VIAL IV SCH ×4 (02:30→20:05)
[2016-12-20] MEDS: PROPOFOL 100 ML IV PRN ×5 (02:32→23:31)
[2016-12-20] MEDS: FENTANYL CITRATE INJ/PF 100 MCG/2 ML AMPUL IV PRN (03:01)
[2016-12-20] MEDS: NORMAL SALINE 1000 ML 1,000 ML IV PRN (03:18)
[2016-12-20] MEDS: NORMAL SALINE 1000 ML 1,000 ML with POTASSIUM CHLORIDE 20 MEQ, MAGNESIUM SULFATE 8 MEQ,... IV PRN ×5 (03:24)
[2016-12-20 06:02] LABS: ABSOLUTE BASOPHILS # (AUTO) 0.1 10^3/uL (0.0-0.2); ABSOLUTE LYMPHOCYTES (AUTO) 0.9 10^3/uL (0.5-4.7); ABSOLUTE MONOCYTES (AUTO) 0.5 10^3/uL (0.1-1.4); ABSOLUTE NEUT (AUTO) 7.7 10^3/uL (1.7-8.2); BASOPHILS % (AUTO) 0.6 % (0-2); EOSINOPHILS % (AUTO) 0.3 % (0-6); HEMATOCRIT 26.4 % (37.9-51.0); HGB HCT DIFFERENCE 0.6; LYMPHOCYTES % (AUTO) 9.5 % (13-45); MEAN CORPUSCULAR HEMOGLOBIN 31.4 pg (27.0-33.4); MEAN CORPUSCULAR HGB CONC 34.1 g/dL (32.0-36.0); MEAN CORPUSCULAR VOLUME 92 fl (80-97); RED BLOOD COUNT 2.87 10^6/uL (4.35-5.55); RED CELL DISTRIBUTION WIDTH 13.2 % (11.5-14.0); SEGMENTED NEUTROPHILS % (AUTO) 83.6 % (42-78); WHITE BLOOD COUNT 9.2 10^3/uL (4.0-10.5)
[2016-12-20 06:21] LABS: PROTHROMBIN TIME 16.2 SEC (11.4-15.4)
[2016-12-20 06:22] LABS: PARTIAL THROMBOPLASTIN TIME 42.9 SEC (23.5-35.8)
[2016-12-20 06:26] LABS: ANION GAP 5 (5-19); BLOOD UREA NITROGEN 8 mg/dL (7-20); CALCIUM 7.7 mg/dL (8.4-10.2); CARBON DIOXIDE 18 mmol/L (22-30); CHLORIDE 107 mmol/L (98-107); CREATININE RESULT 0.65 mg/dL (0.52-1.25); GLUCOSE 133 mg/dL (75-110); POTASSIUM 4.1 mmol/L (3.6-5.0); SODIUM 129.5 mmol/L (137-145)
[2016-12-20 07:47] LABS: ARTERIAL BLOOD BASE EXCESS -8.6 mmol/L
[2016-12-20] MEDS ORDERED: NORMAL SALINE 1000 ML 1,000 ML IV PRN (08:19)
[2016-12-20] MEDS ORDERED: VANCOMYCIN HCL 0 MG in DEXTROSE 5%-WATER 250 ML IV NR (08:30)
--- NOTE | 2016-12-20 08:50 | PDOC PROGRESS REPORT ---
Subjective Subjective:: Got out of surgery at 1 AM on 12/19/2016 for perforated duodenal ulcer. Postop day 1. Off of Levophed for several hours. No bowel function yet. Good urine output. Drain with serosanguineous fluid only. Physical Exam Vital Signs: Temp Pulse Resp BP Pulse Ox 98.3 F 80 17 123/70 100 12/20/16 08:00 12/20/16 08:00 12/20/16 08:00 12/20/16 08:00 12/20/16 08:00 Intake & Output 12/19/16 12/20/16 12/21/16 06:59 06:59 06:59 Intake Total 5009 8008 Output Total 3890 1690 140 Balance 1119 6318 -140 Weight 55.3 kg 63.3 kg General appearance: PRESENT: other - Intubated sedated with NG tube. Head exam: PRESENT: normocephalic Respiratory exam: PRESENT: other - Coarse lung sounds bilaterally Cardiovascular exam: PRESENT: RRR GI/Abdominal exam: PRESENT: soft, tenderness - Intubated and sedated so actually not tender during abdominal exam. Midline dressing intact no significant drainage. KAREN was serosanguineous.. ABSENT: distended Neurological exam: PRESENT: other - Intubated sedated Skin exam: ABSENT: jaundice Results Laboratory Results: 12/20/16 05:55 12/20/16 05:55 12/19/16 12/19/16 12/19/16 06:45 12:10 14:30 WBC 7.7 D RBC 3.13 L Hgb 9.7 L Hct 28.6 L MCV 91 MCH 31.0 MCHC 33.9 RDW 13.0 Plt Count 226 Seg Neutrophils % 85.8 H Lymphocytes % 8.3 L Monocytes % 5.8 Eosinophils % 0.0 Basophils % 0.1 Absolute Neutrophils 6.6 Absolute Lymphocytes 0.6 Absolute Monocytes 0.4 Absolute Eosinophils 0.0 Absolute Basophils 0.0 Carbonic Acid 0.82 L HCO3/H2CO3 Ratio 19:1 ABG pH 7.38 ABG pCO2 27.2 L ABG pO2 96.1 ABG HCO3 15.8 L ABG O2 Saturation 97.4 ABG Base Excess -8.0 FiO2 35% Sodium Potassium Chloride Carbon Dioxide Anion Gap BUN Creatinine Est GFR ( Amer) Est GFR (Non-Af Amer) Glucose Lactic Acid Calcium Magnesium 1.2 L* Triglycerides 12/19/16 12/19/16 12/19/16 14:30 16:42 16:42 WBC RBC Hgb Hct MCV MCH MCHC RDW Plt Count Seg Neutrophils % Lymphocytes % Monocytes % Eosinophils % Basophils % Absolute Neutrophils Absolute Lymphocytes Absolute Monocytes Absolute Eosinophils Absolute Basophils Carbonic Acid HCO3/H2CO3 Ratio ABG pH ABG pCO2 ABG pO2 ABG HCO3 ABG O2 Saturation ABG Base Excess FiO2 Sodium 126.8 L Potassium 4.4 Chloride 104 Carbon Dioxide 17 L Anion Gap 6 BUN 9 Creatinine 0.68 Est GFR ( Amer) > 60 Est GFR (Non-Af Amer) > 60 Glucose 120 H Lactic Acid Calcium 7.4 L Magnesium 2.8 H D Triglycerides 41 12/20/16 12/20/16 12/20/16 05:55 05:55 06:05 WBC 9.2 RBC 2.87 L Hgb 9.0 L Hct 26.4 L MCV 92 MCH 31.4 MCHC 34.1 RDW 13.2 Plt Count 210 Seg Neutrophils % 83.6 H Lymphocytes % 9.5 L Monocytes % 6.0 Eosinophils % 0.3 Basophils % 0.6 Absolute Neutrophils 7.7 Absolute Lymphocytes 0.9 Absolute Monocytes 0.5 Absolute Eosinophils 0.0 Absolute Basophils 0.1 Carbonic Acid Cancelled HCO3/H2CO3 Ratio Cancelled ABG pH Cancelled ABG pCO2 Cancelled ABG pO2 Cancelled ABG HCO3 Cancelled ABG O2 Saturation Cancelled ABG Base Excess Cancelled FiO2 Cancelled Sodium 129.5 L Potassium 4.1 Chloride 107 Carbon Dioxide 18 L Anion Gap 5 BUN 8 Creatinine 0.65 Est GFR ( Amer) > 60 Est GFR (Non-Af Amer) > 60 Glucose 133 H Lactic Acid Calcium 7.7 L Magnesium Triglycerides 12/20/16 12/20/16 06:05 07:39 WBC RBC Hgb Hct MCV MCH MCHC RDW Plt Count Seg Neutrophils % Lymphocytes % Monocytes % Eosinophils % Basophils % Absolute Neutrophils Absolute Lymphocytes Absolute Monocytes Absolute Eosinophils Absolute Basophils Carbonic Acid 0.74 L HCO3/H2CO3 Ratio 20:1 ABG pH 7.40 ABG pCO2 24.7 L ABG pO2 108.1 H ABG HCO3 14.9 L ABG O2 Saturation 98.0 ABG Base Excess -8.6 FiO2 28% Sodium Potassium Chloride Carbon Dioxide Anion Gap BUN Creatinine Est GFR ( Amer) Est GFR (Non-Af Amer) Glucose Lactic Acid 2.4 H Calcium Magnesium Triglycerides Impressions: Acute Abdomen Series 12/18/16 16:33 IMPRESSION: NO RADIOGRAPHIC EVIDENCE FOR ACUTE ABDOMINAL DISEASE. Abdomen/Pelvis CT 12/18/16 18:45 IMPRESSION: 1. Bowel perforation. Free air and contrast within the abdomen. Based on the appearance, suspect proximal GI tract viscus perforation. Possibly duodenal or gastric ulcer or proximal small bowel. Pertinent findings on the imaging study reported as a CRITICAL RESULT to LUPE HERNANDEZ MD at21:54 on 12/18/2016. Category of Critical Result: Bowel perforation. Chest X-Ray 12/20/16 06:00 IMPRESSION: Bibasilar densities as noted above. Other findings as noted above Assessment & Plan - Diagnosis (1) Acute perforated duodenal ulcer with hemorrhage Is this a current diagnosis for this admission?: YesPlan: Status post David patch. Vital signs have improved. He has been off levophed since earlier this morning. Continue Protonix, heparin and SCDs for DVT prophylaxis, IV antibiotics, nothing by mouth, NG tube to low intermittent suction, abdominal drain to KAREN closed bulb suction. (2) Alcohol abuse Is this a current diagnosis for this admission?: Yes (3) COPD (chronic obstructive pulmonary disease) Qualifiers: COPD type: unspecified COPD Qualified Code(s): J44.9 - Chronic obstructive pulmonary disease, unspecified Is this a current diagnosis for this admission?: YesPlan: Chest x-ray is worse today with a localized infiltrate versus atelectasis on the lower right as well as the entire left lower lobe more dense. Also appears to have pulmonary edema signs. Spoke with internal medicine about this. Pneumonia versus pulmonary edema versus both. Medicine ordering a BNP. Concerns about cardiac disease secondary to alcohol use. Medicine ordered an echo as well. Vancomycin added in case of pneumonia. (4) DVT prophylaxis Is this a current diagnosis for this admission?: Yes (5) Smoker Is this a current diagnosis for this admission?: Yes
[2016-12-20] MEDS: PANTOPRAZOLE SODIUM 40 MG VIAL IV SCH ×2 (09:17→21:15)
[2016-12-20] MEDS ORDERED: INFLUENZA ADLT QUAD (36MOS+) 2016-17 VAC 0.5 ML SYR IM PRN (09:23)
[2016-12-20] MEDS: VANCOMYCIN HCL 1,000 MG in DEXTROSE 5%-WATER 250 ML IV SCH ×2 (10:39→21:15)
--- NOTE | 2016-12-20 11:51 | PDOC PROGRESS REPORT ---
Subjective Progress Note for:: 12/20/16 Subjective:: Intubated and sedated Physical Exam Vital Signs: Temp Pulse Resp BP Pulse Ox 98.3 F 80 17 123/70 100 12/20/16 08:00 12/20/16 08:00 12/20/16 08:00 12/20/16 08:00 12/20/16 08:00 Intake & Output 12/19/16 12/20/16 12/21/16 06:59 06:59 06:59 Intake Total 5009 8008 Output Total 3890 1690 140 Balance 1119 6318 -140 Weight 55.3 kg 63.3 kg General appearance: PRESENT: no acute distress, disheveled, well-developed, well -nourished Head exam: PRESENT: atraumatic, normocephalic Eye exam: PRESENT: conjunctiva pale Mouth exam: PRESENT: dry mucosa, neck supple, tongue midline, other - ET tube in place Neck exam: ABSENT: carotid bruit, JVD, lymphadenopathy, thyromegaly Respiratory exam: PRESENT: decreased breath sounds, prolonged expiratory phas, rales, rhonchi, symmetrical, unlabored Cardiovascular exam: PRESENT: RRR, +S1, +S2 Pulses: PRESENT: normal radial pulses GI/Abdominal exam: PRESENT: other - Status post surgery Rectal exam: PRESENT: deferred Gentrourinary exam: PRESENT: indwelling catheter Musculoskeletal exam: PRESENT: normal inspection Skin exam: PRESENT: dry, intact, warm Results Laboratory Results: 12/20/16 05:55 12/20/16 05:55 12/19/16 12/19/16 12/19/16 06:45 12:10 14:30 WBC 7.7 D RBC 3.13 L Hgb 9.7 L Hct 28.6 L MCV 91 MCH 31.0 MCHC 33.9 RDW 13.0 Plt Count 226 Seg Neutrophils % 85.8 H Lymphocytes % 8.3 L Monocytes % 5.8 Eosinophils % 0.0 Basophils % 0.1 Absolute Neutrophils 6.6 Absolute Lymphocytes 0.6 Absolute Monocytes 0.4 Absolute Eosinophils 0.0 Absolute Basophils 0.0 Retic Count (auto) Absolute Retic Carbonic Acid 0.82 L HCO3/H2CO3 Ratio 19:1 ABG pH 7.38 ABG pCO2 27.2 L ABG pO2 96.1 ABG HCO3 15.8 L ABG O2 Saturation 97.4 ABG Base Excess -8.0 FiO2 35% Sodium Potassium Chloride Carbon Dioxide Anion Gap BUN Creatinine Est GFR ( Amer) Est GFR (Non-Af Amer) Glucose Lactic Acid Calcium Magnesium 1.2 L* Triglycerides 12/19/16 12/19/16 12/19/16 14:30 16:42 16:42 WBC RBC Hgb Hct MCV MCH MCHC RDW Plt Count Seg Neutrophils % Lymphocytes % Monocytes % Eosinophils % Basophils % Absolute Neutrophils Absolute Lymphocytes Absolute Monocytes Absolute Eosinophils Absolute Basophils Retic Count (auto) Absolute Retic Carbonic Acid HCO3/H2CO3 Ratio ABG pH ABG pCO2 ABG pO2 ABG HCO3 ABG O2 Saturation ABG Base Excess FiO2 Sodium 126.8 L Potassium 4.4 Chloride 104 Carbon Dioxide 17 L Anion Gap 6 BUN 9 Creatinine 0.68 Est GFR ( Amer) > 60 Est GFR (Non-Af Amer) > 60 Glucose 120 H Lactic Acid Calcium 7.4 L Magnesium 2.8 H D Triglycerides 41 12/20/16 12/20/16 12/20/16 05:55 05:55 05:55 WBC 9.2 RBC 2.87 L Hgb 9.0 L Hct 26.4 L MCV 92 MCH 31.4 MCHC 34.1 RDW 13.2 Plt Count 210 Seg Neutrophils % 83.6 H Lymphocytes % 9.5 L Monocytes % 6.0 Eosinophils % 0.3 Basophils % 0.6 Absolute Neutrophils 7.7 Absolute Lymphocytes 0.9 Absolute Monocytes 0.5 Absolute Eosinophils 0.0 Absolute Basophils 0.1 Retic Count (auto) 1.56 Absolute Retic 0.045 Carbonic Acid HCO3/H2CO3 Ratio ABG pH ABG pCO2 ABG pO2 ABG HCO3 ABG O2 Saturation ABG Base Excess FiO2 Sodium 129.5 L Potassium 4.1 Chloride 107 Carbon Dioxide 18 L Anion Gap 5 BUN 8 Creatinine 0.65 Est GFR ( Amer) > 60 Est GFR (Non-Af Amer) > 60 Glucose 133 H Lactic Acid Calcium 7.7 L Magnesium Triglycerides 12/20/16 12/20/16 12/20/16 06:05 06:05 07:39 WBC RBC Hgb Hct MCV MCH MCHC RDW Plt Count Seg Neutrophils % Lymphocytes % Monocytes % Eosinophils % Basophils % Absolute Neutrophils Absolute Lymphocytes Absolute Monocytes Absolute Eosinophils Absolute Basophils Retic Count (auto) Absolute Retic Carbonic Acid Cancelled 0.74 L HCO3/H2CO3 Ratio Cancelled 20:1 ABG pH Cancelled 7.40 ABG pCO2 Cancelled 24.7 L ABG pO2 Cancelled 108.1 H ABG HCO3 Cancelled 14.9 L ABG O2 Saturation Cancelled 98.0 ABG Base Excess Cancelled -8.6 FiO2 Cancelled 28% Sodium Potassium Chloride Carbon Dioxide Anion Gap BUN Creatinine Est GFR ( Amer) Est GFR (Non-Af Amer) Glucose Lactic Acid 2.4 H Calcium Magnesium Triglycerides Impressions: Acute Abdomen Series 12/18/16 16:33 IMPRESSION: NO RADIOGRAPHIC EVIDENCE FOR ACUTE ABDOMINAL DISEASE. Abdomen/Pelvis CT 12/18/16 18:45 IMPRESSION: 1. Bowel perforation. Free air and contrast within the abdomen. Based on the appearance, suspect proximal GI tract viscus perforation. Possibly duodenal or gastric ulcer or proximal small bowel. Pertinent findings on the imaging study reported as a CRITICAL RESULT to LUPE HERNANDEZ MD at21:54 on 12/18/2016. Category of Critical Result: Bowel perforation. Chest X-Ray 12/20/16 06:00 IMPRESSION: Bibasilar densities as noted above. Other findings as noted above Assessment & Plan - Diagnosis (1) Acute respiratory failure following trauma and surgery Is this a current diagnosis for this admission?: YesPlan: Labs- All tests 24 hr 12/18/16 12/19/16 12/19/16 16:00 06:45 07:12 Hgb 15.3 10.6 L D ABG pH 7.28 L ABG pCO2 40.1 ABG pO2 85.5 FiO2 40% Sodium Carbon Dioxide 12/19/16 12/19/16 12/20/16 12:10 14:30 05:55 Hgb 9.7 L ABG pH 7.38 ABG pCO2 27.2 L ABG pO2 96.1 FiO2 35% Sodium 129.5 L Carbon Dioxide 18 L 12/20/16 12/20/16 05:55 07:39 Hgb 9.0 L ABG pH 7.40 ABG pCO2 24.7 L ABG pO2 108.1 H FiO2 28% Sodium Carbon Dioxide Continue supportive care primary metabolic acidosis with respiratory compensation adequate oxygenation with decreasing FiO2 requirement (2) COPD (chronic obstructive pulmonary disease) Qualifiers: COPD type: unspecified COPD Qualified Code(s): J44.9 - Chronic obstructive pulmonary disease, unspecified Is this a current diagnosis for this admission?: YesPlan: Continue current bronchodilator therapy (3) Hyponatremia Is this a current diagnosis for this admission?: YesPlan: Avoid free water follow closely (4) Hypocalcemia Is this a current diagnosis for this admission?: YesPlan: Improving (5) Hypoalbuminemia Is this a current diagnosis for this admission?: YesPlan: Albumin infused (6) Septic shock Is this a current diagnosis for this admission?: YesPlan: Still requiring small amount of vasopressor agent metabolic acidosis persist - Time Critical Time spent with patient: 35 or more minutes - 40 minutes
--- NOTE | 2016-12-20 17:57 | PDOC PROGRESS REPORT ---
Subjective Progress Note for:: 12/20/16 Subjective:: Blood pressure stable off pressors. Unable to obtain review of systems secondary to sedated/intubated state. Physical Exam Vital Signs: Temp Pulse Resp BP Pulse Ox 98.7 F 95 21 H 131/74 H 96 12/20/16 16:00 12/20/16 17:30 12/20/16 16:00 12/20/16 17:30 12/20/16 16:00 Intake & Output 12/19/16 12/20/16 12/21/16 06:59 06:59 06:59 Intake Total 5009 8008 2415 Output Total 3890 1690 845 Balance 1119 6318 1570 Weight 55.3 kg 63.3 kg GENERAL: No acute distress, sedated/intubated HEENT: Conjunctiva clear, nonicteric, moist mucous membranes, no JVD, midline trachea RESPIRATORY: Bilateral rhonchi CARDIAC: Regular rate and rhythm, no murmurs/gallops/rubs ABDOMEN: Soft, nondistended, nontender, positive bowel sounds, no rebound, no guarding EXTREMETIES: No edema, cyanosis, clubbing NEUROLOGIC: Sedated SKIN: No rash, wounds Results Laboratory Results: 12/20/16 05:55 12/20/16 05:55 12/19/16 12/20/16 12/20/16 16:42 05:55 05:55 WBC 9.2 RBC 2.87 L Hgb 9.0 L Hct 26.4 L MCV 92 MCH 31.4 MCHC 34.1 RDW 13.2 Plt Count 210 Seg Neutrophils % 83.6 H Lymphocytes % 9.5 L Monocytes % 6.0 Eosinophils % 0.3 Basophils % 0.6 Absolute Neutrophils 7.7 Absolute Lymphocytes 0.9 Absolute Monocytes 0.5 Absolute Eosinophils 0.0 Absolute Basophils 0.1 Retic Count (auto) Absolute Retic Carbonic Acid HCO3/H2CO3 Ratio ABG pH ABG pCO2 ABG pO2 ABG HCO3 ABG O2 Saturation ABG Base Excess FiO2 Sodium 129.5 L Potassium 4.1 Chloride 107 Carbon Dioxide 18 L Anion Gap 5 BUN 8 Creatinine 0.65 Est GFR ( Amer) > 60 Est GFR (Non-Af Amer) > 60 Glucose 133 H Lactic Acid Calcium 7.7 L Magnesium 2.8 H D Iron TIBC % Saturation Ferritin Vitamin B12 Folate 0212/20/16 12/20/16 05:55 05:55 06:05 WBC RBC Hgb Hct MCV MCH MCHC RDW Plt Count Seg Neutrophils % Lymphocytes % Monocytes % Eosinophils % Basophils % Absolute Neutrophils Absolute Lymphocytes Absolute Monocytes Absolute Eosinophils Absolute Basophils Retic Count (auto) 1.56 Absolute Retic 0.045 Carbonic Acid Cancelled HCO3/H2CO3 Ratio Cancelled ABG pH Cancelled ABG pCO2 Cancelled ABG pO2 Cancelled ABG HCO3 Cancelled ABG O2 Saturation Cancelled ABG Base Excess Cancelled FiO2 Cancelled Sodium Potassium Chloride Carbon Dioxide Anion Gap BUN Creatinine Est GFR ( Amer) Est GFR (Non-Af Amer) Glucose Lactic Acid Calcium Magnesium Iron < 10.0 L TIBC 162 L % Saturation UNABLE TO CALCULATE Ferritin 202.00 Vitamin B12 754.0 Folate 7.70 12/20/16 12/20/16 06:05 07:39 WBC RBC Hgb Hct MCV MCH MCHC RDW Plt Count Seg Neutrophils % Lymphocytes % Monocytes % Eosinophils % Basophils % Absolute Neutrophils Absolute Lymphocytes Absolute Monocytes Absolute Eosinophils Absolute Basophils Retic Count (auto) Absolute Retic Carbonic Acid 0.74 L HCO3/H2CO3 Ratio 20:1 ABG pH 7.40 ABG pCO2 24.7 L ABG pO2 108.1 H ABG HCO3 14.9 L ABG O2 Saturation 98.0 ABG Base Excess -8.6 FiO2 28% Sodium Potassium Chloride Carbon Dioxide Anion Gap BUN Creatinine Est GFR ( Amer) Est GFR (Non-Af Amer) Glucose Lactic Acid 2.4 H Calcium Magnesium Iron TIBC % Saturation Ferritin Vitamin B12 Folate 12/20/16 05:55 NT-Pro-B Natriuret Pep 490 Impressions: Acute Abdomen Series 12/18/16 16:33 IMPRESSION: NO RADIOGRAPHIC EVIDENCE FOR ACUTE ABDOMINAL DISEASE. Abdomen/Pelvis CT 12/18/16 18:45 IMPRESSION: 1. Bowel perforation. Free air and contrast within the abdomen. Based on the appearance, suspect proximal GI tract viscus perforation. Possibly duodenal or gastric ulcer or proximal small bowel. Pertinent findings on the imaging study reported as a CRITICAL RESULT to LUPE HERNANDEZ MD at21:54 on 12/18/2016. Category of Critical Result: Bowel perforation. Chest X-Ray 12/20/16 06:00 IMPRESSION: Bibasilar densities as noted above. Other findings as noted above Assessment & Plan - Diagnosis (1) Septic shock Is this a current diagnosis for this admission?: YesPlan: Blood pressure now stable off pressors. (2) Pneumonia Is this a current diagnosis for this admission?: YesPlan: High probability of gram-negative bacterial infection given chronic alcohol abuse and hospitalization/mechanical ventilation. Continue imipenem. Add vancomycin given worsening appearance of chest x-ray today. (3) Acute respiratory failure following trauma and surgery Is this a current diagnosis for this admission?: YesPlan: Continue mechanical ventilation with weaning strategy per Dr. Daniels of pulmonary medicine. Chest x-ray with worsening appearance today of airspace disease. ProBNP level is normal, however I would like to check echocardiogram given history of heavy alcohol abuse to rule out cardiomyopathy. (4) Acute perforated duodenal ulcer with hemorrhage Is this a current diagnosis for this admission?: YesPlan: Postoperative day #2. Managed by surgery. Patient currently nothing by mouth. Continue imipenem. (5) Peritonitis (acute) generalized Is this a current diagnosis for this admission?: Yes (6) COPD (chronic obstructive pulmonary disease) Qualifiers: COPD type: unspecified COPD Qualified Code(s): J44.9 - Chronic obstructive pulmonary disease, unspecified Is this a current diagnosis for this admission?: YesPlan: Continue duo nebs every 6 hours scheduled. (7) Hypoalbuminemia Is this a current diagnosis for this admission?: YesPlan: Secondary to alcohol abuse and chronic malnutrition. (8) Hypocalcemia Is this a current diagnosis for this admission?: YesPlan: Corrected calcium for albumin normal. (9) Hyponatremia Is this a current diagnosis for this admission?: YesPlan: Likely secondary to chronic alcohol abuse. (10) protein calorie malnourishment Is this a current diagnosis for this admission?: YesPlan: Patient is currently nothing by mouth status post abdominal surgery. Initiate nutritional support as soon as possible. (11) Anemia Is this a current diagnosis for this admission?: YesPlan: Labs consistent with iron deficiency/chronic disease/malnutrition. Start iron supplementation. Initiate new traditional support once advised by surgery. (12) Alcohol abuse Is this a current diagnosis for this admission?: YesPlan: Continue IV thiamine and multivitamin supplementation. Patient is currently on a Versed drip and showing no signs of alcohol withdrawal. (13) Tobacco abuse Is this a current diagnosis for this admission?: Yes - Time Critical Time spent with patient: 35 or more minutes
--- NOTE | 2016-12-20 20:31 | XCELERA REPORT ---
[address] [address] Transthoracic Echocardiogram Report Name: RAPHAEL BROWN Age: 61 yrs Gender: Male : 1955 Patient Status: Inpatient Patient Location: ICU\S\601\S\[id number] Study Date: 12/20/2016 09:53 AM Height: 60 in Weight: 139 lb BSA: 1.6 m2 Procedure: A complete two-dimensional transthoracic echocardiogram was performed (2D, M-mode, spectral and color flow Doppler). The study was technically difficult with many images being suboptimal in quality. Reason For Study: resp failure, pulm edema Ordering Physician: RAPHAEL MURILLO Performed By: Nicolasa Blanchard Interpretation Summary The left ventricular ejection fraction is normal. There is borderline concentric left ventricular hypertrophy. The left ventricle is grossly normal size. Doppler measurements suggest pseudonormalized left ventricular relaxation, which is associated with grade II/IV or mild to moderate diastolic dysfunction Wall motion cannot be accurately commented on, but no definite regional wall motion abnormalities noted. The right ventricular systolic function is normal. The right ventricle is mildly dilated. The right atrium is normal in size The left atrial size is normal. There is no mitral valve stenosis. There is a mild amount of mitral regurgitation No aortic regurgitation is present. There is no aortic valve stenosis There is a trace or physiologic amount of tricuspid regurgitation Tricuspid regurgitation jet envelope not well defined to measure RV systolic pressure accurately. The aortic root is not well visualized but is probably normal size. The inferior vena cava appeared normal and decreased < 50% with respiration (RAP 10-15 mmHg) There is no pericardial effusion. MMode/2D Measurements \T\ Calculations RVDd: 2.4 cm LVIDd: 4.1 cm FS: 31.9 % Ao root diam: 3.0 cm IVSd: 1.0 cm LVIDs: 2.8 cm EDV(Teich): 74.0 ml LVPWd: 1.0 cm ESV(Teich): 29.2 ml Ao root area: 7.3 cm2 EF(Teich): 60.5 % LA dimension: 3.0 cm Doppler Measurements \T\ Calculations MV E max miguel a: MV P1/2t max miguel a: Ao V2 max: LV V1 max P.0 cm/sec 130.0 cm/sec 121.6 cm/sec 5.6 mmHg MV A max miguel a: MV P1/2t: 72.9 msec Ao max PG: LV V1 max: 159.0 cm/sec 5.9 mmHg 117.8 cm/sec MV E/A: 0.82 MVA(P1/2t): 3.0 cm2 MV dec slope: 522.0 cm/sec2 MV dec time: 0.24 sec PA V2 max: TR max miguel a: 94.3 cm/sec 240.5 cm/sec PA max PG: TR max P.1 mmHg 3.6 mmHg Left Ventricle The left ventricle is grossly normal size. There is borderline concentric left ventricular hypertrophy. The left ventricular ejection fraction is normal. Doppler measurements suggest pseudonormalized left ventricular relaxation, which is associated with grade II/IV or mild to moderate diastolic dysfunction. Wall motion cannot be accurately commented on, but no definite regional wall motion abnormalities noted. Right Ventricle The right ventricle is mildly dilated. There is normal right ventricular wall thickness. The right ventricular systolic function is normal. Atria The right atrium is normal in size. The left atrial size is normal. Interarterial septum not well visualized and not well dopplered. Cannot comment on ASD/PFO presence. Mitral Valve The mitral valve is grossly normal. There is no mitral valve stenosis. There is a mild amount of mitral regurgitation. Aortic Valve The aortic valve is grossly normal. There is no aortic valve stenosis. No aortic regurgitation is present. Tricuspid Valve The tricuspid valve is not well visualized secondary to technical limitations. There is no tricuspid stenosis. There is a trace or physiologic amount of tricuspid regurgitation. Tricuspid regurgitation jet envelope not well defined to measure RV systolic pressure accurately. Pulmonic Valve The pulmonic valve is not well visualized. Great Vessels The aortic root is not well visualized but is probably normal size. The inferior vena cava appeared normal and decreased < 50% with respiration (RAP 10-15 mmHg). Effusions There is no pericardial effusion. : RAPHAEL MURILLO > Rose Crowley
[2016-12-21] MEDS: IPRATROPIUM/ALBUTEROL 0.5-2.5 MG/3 ML AMPUL NEB SCH ×4 (02:18→19:52)
[2016-12-21] MEDS: LORAZEPAM INJ 2 MG/1 ML VIAL IV SCH ×4 (03:25→21:28)
[2016-12-21] MEDS: NORMAL SALINE 1000 ML 1,000 ML with POTASSIUM CHLORIDE 20 MEQ, MAGNESIUM SULFATE 8 MEQ,... IV PRN ×5 (03:26)
[2016-12-21] MEDS: PROPOFOL 100 ML IV PRN ×3 (03:28→14:44)
[2016-12-21 06:00] LABS: ABSOLUTE BASOPHILS # (AUTO) 0.1 10^3/uL (0.0-0.2); ABSOLUTE EOSINOPHILS # (AUTO) 0.1 10^3/uL (0.0-0.6); ABSOLUTE LYMPHOCYTES (AUTO) 0.7 10^3/uL (0.5-4.7); ABSOLUTE MONOCYTES (AUTO) 0.6 10^3/uL (0.1-1.4); ABSOLUTE NEUT (AUTO) 11.5 10^3/uL (1.7-8.2); BASOPHILS % (AUTO) 0.5 % (0-2); EOSINOPHILS % (AUTO) 0.5 % (0-6); HEMATOCRIT 28.5 % (37.9-51.0); HEMOGLOBIN 9.6 g/dL (13.5-17.0); HGB HCT DIFFERENCE 0.3; LYMPHOCYTES % (AUTO) 5.4 % (13-45); MEAN CORPUSCULAR HEMOGLOBIN 30.6 pg (27.0-33.4); MEAN CORPUSCULAR HGB CONC 33.7 g/dL (32.0-36.0); MEAN CORPUSCULAR VOLUME 91 fl (80-97); MONOCYTES % (AUTO) 4.6 % (3-13); RED BLOOD COUNT 3.13 10^6/uL (4.35-5.55); WHITE BLOOD COUNT 12.9 10^3/uL (4.0-10.5)
[2016-12-21 06:05] LABS: PROTHROMBIN TIME 14.1 SEC (11.4-15.4)
[2016-12-21 06:06] LABS: ARTERIAL BLOOD BASE EXCESS -5.9 mmol/L; ARTERIAL BLOOD O2 SATURATION 78.6 % (94-98); PARTIAL THROMBOPLASTIN TIME 38.1 SEC (23.5-35.8)
[2016-12-21] MEDS: IMIPENEM/CILASTATIN SODIUM 500 MG in NORMAL SALINE 100 ML IV SCH ×4 (06:16→23:41)
[2016-12-21 06:33] LABS: ANION GAP 6 (5-19); BLOOD UREA NITROGEN 8 mg/dL (7-20); CALCIUM 8.2 mg/dL (8.4-10.2); CARBON DIOXIDE 18 mmol/L (22-30); CHLORIDE 107 mmol/L (98-107); CREATININE RESULT 0.54 mg/dL (0.52-1.25); GLUCOSE 102 mg/dL (75-110); MAGNESIUM 2.3 mg/dL (1.6-2.3); POTASSIUM 3.4 mmol/L (3.6-5.0); SODIUM 130.6 mmol/L (137-145)
[2016-12-21] MEDS ORDERED: POTASSI CL 20 MEQ/D5NS 1L 1,000 ML IV PRN (07:58)
--- NOTE | 2016-12-21 08:18 | PDOC PROGRESS REPORT ---
Subjective Progress Note for:: 12/21/16 Subjective:: No new issues reported. Patient stable on mechanical ventilation with FiO2 25% . Unable to obtain review of systems or history from patient secondary to sedated/intubated state. Physical Exam Vital Signs: Temp Pulse Resp BP Pulse Ox 98.4 F 80 17 167/87 H 99 12/21/16 00:27 12/21/16 02:18 12/21/16 02:18 12/21/16 06:49 12/21/16 06:49 Intake & Output 12/20/16 12/21/16 12/22/16 06:59 06:59 06:59 Intake Total 8008 4228 Output Total 1690 1745 Balance 6318 2483 Weight 63.3 kg 63.6 kg GENERAL: No acute distress, sedated/intubated HEENT: Conjunctiva clear, nonicteric, moist mucous membranes, no JVD, midline trachea RESPIRATORY: Bilateral rhonchi CARDIAC: Regular rate and rhythm, no murmurs/gallops/rubs ABDOMEN: Soft, nondistended, nontender, positive bowel sounds, no rebound, no guarding EXTREMETIES: Bilateral upper extremity edema noted NEUROLOGIC: Sedated SKIN: No rash, wounds Results Laboratory Results: 12/21/16 05:40 12/21/16 05:40 12/20/16 12/20/16 12/21/16 05:55 05:55 05:40 WBC RBC Hgb Hct MCV MCH MCHC RDW Plt Count Seg Neutrophils % Lymphocytes % Monocytes % Eosinophils % Basophils % Absolute Neutrophils Absolute Lymphocytes Absolute Monocytes Absolute Eosinophils Absolute Basophils Retic Count (auto) 1.56 Absolute Retic 0.045 Carbonic Acid 0.92 L HCO3/H2CO3 Ratio 19:1 ABG pH 7.39 ABG pCO2 30.7 L ABG pO2 42.4 L ABG HCO3 18.3 L ABG O2 Saturation 78.6 L ABG Base Excess -5.9 FiO2 28% Sodium Potassium Chloride Carbon Dioxide Anion Gap BUN Creatinine Est GFR ( Amer) Est GFR (Non-Af Amer) Glucose Lactic Acid Calcium Magnesium Iron < 10.0 L TIBC 162 L % Saturation UNABLE TO CALCULATE Ferritin 202.00 Vitamin B12 754.0 Folate 7.70 12/21/16 12/21/16 12/21/16 05:40 05:40 05:40 WBC 12.9 H RBC 3.13 L Hgb 9.6 L Hct 28.5 L MCV 91 MCH 30.6 MCHC 33.7 RDW 13.0 Plt Count 243 Seg Neutrophils % 89.0 H Lymphocytes % 5.4 L Monocytes % 4.6 Eosinophils % 0.5 Basophils % 0.5 Absolute Neutrophils 11.5 H Absolute Lymphocytes 0.7 Absolute Monocytes 0.6 Absolute Eosinophils 0.1 Absolute Basophils 0.1 Retic Count (auto) Absolute Retic Carbonic Acid HCO3/H2CO3 Ratio ABG pH ABG pCO2 ABG pO2 ABG HCO3 ABG O2 Saturation ABG Base Excess FiO2 Sodium 130.6 L Potassium 3.4 L Chloride 107 Carbon Dioxide 18 L Anion Gap 6 BUN 8 Creatinine 0.54 Est GFR ( Amer) > 60 Est GFR (Non-Af Amer) > 60 Glucose 102 Lactic Acid 0.9 Calcium 8.2 L Magnesium 2.3 Iron TIBC % Saturation Ferritin Vitamin B12 Folate 12/20/16 05:55 NT-Pro-B Natriuret Pep 490 Impressions: Acute Abdomen Series 12/18/16 16:33 IMPRESSION: NO RADIOGRAPHIC EVIDENCE FOR ACUTE ABDOMINAL DISEASE. Abdomen/Pelvis CT 12/18/16 18:45 IMPRESSION: 1. Bowel perforation. Free air and contrast within the abdomen. Based on the appearance, suspect proximal GI tract viscus perforation. Possibly duodenal or gastric ulcer or proximal small bowel. Pertinent findings on the imaging study reported as a CRITICAL RESULT to LUPE HERNANDEZ MD at21:54 on 12/18/2016. Category of Critical Result: Bowel perforation. Chest X-Ray 12/21/16 06:00 IMPRESSION: 1. Support tubes and lines as above. 2. There is increased airspace densities in the right lung in comparison to the prior study and may represent atelectasis, edema, or infiltrate. The right left lung base densities are similar appearance to the prior study. There is hazy densities noted at both lung bases likely representing layering effusions. Assessment & Plan - Diagnosis (1) Septic shock Is this a current diagnosis for this admission?: YesPlan: Blood pressure now stable off pressors. (2) Pneumonia Is this a current diagnosis for this admission?: YesPlan: High probability of gram-negative bacterial infection given chronic alcohol abuse and hospitalization/mechanical ventilation. Continue IV imipenem and Vancomycin pending sputum culture. (3) Acute respiratory failure following trauma and surgery Is this a current diagnosis for this admission?: YesPlan: Continue mechanical ventilation with weaning strategy per Dr. Daniels of pulmonary medicine. Chest x-ray with worsening appearance today of airspace disease. I will start Lasix 20 mg IV every 12 hours and decrease IV fluid rate. ProBNP level is normal, however echocardiogram shows grade 2/4 diastolic dysfunction, normal EF. (4) Acute perforated duodenal ulcer with hemorrhage Is this a current diagnosis for this admission?: YesPlan: Postoperative day #2. Managed by surgery. Patient currently nothing by mouth. Continue imipenem and vancomycin. (5) Peritonitis (acute) generalized Is this a current diagnosis for this admission?: Yes (6) COPD (chronic obstructive pulmonary disease) Qualifiers: COPD type: unspecified COPD Qualified Code(s): J44.9 - Chronic obstructive pulmonary disease, unspecified Is this a current diagnosis for this admission?: YesPlan: Continue duo nebs every 6 hours scheduled. (7) Hypoalbuminemia Is this a current diagnosis for this admission?: YesPlan: Secondary to alcohol abuse and chronic malnutrition. (8) Hypocalcemia Is this a current diagnosis for this admission?: YesPlan: Corrected calcium for albumin normal. (9) Hyponatremia Is this a current diagnosis for this admission?: YesPlan: Likely secondary to chronic alcohol abuse. (10) protein calorie malnourishment Is this a current diagnosis for this admission?: YesPlan: Patient is currently nothing by mouth status post abdominal surgery. Initiate nutritional support as soon as possible. (11) Anemia Is this a current diagnosis for this admission?: YesPlan: Labs consistent with iron deficiency/chronic disease/malnutrition. Hemoccult negative. Continue iron supplementation. Initiate nutritional support once advised by surgery. (12) Alcohol abuse Is this a current diagnosis for this admission?: YesPlan: Continue IV thiamine and multivitamin supplementation. Patient is currently on a Versed drip and showing no signs of alcohol withdrawal. (13) Tobacco abuse Is this a current diagnosis for this admission?: Yes (14) Hypokalemia Is this a current diagnosis for this admission?: YesPlan: Replace as needed. Add potassium to maintenance IV fluids. - Time Critical Time spent with patient: 35 or more minutes
[2016-12-21] MEDS: HYDRALAZINE HCL INJ/PF 20 MG/1 ML SDV IV PRN (08:42)
[2016-12-21] MEDS ORDERED: POTASSI CL 20 MEQ/50 ML RIDER 20 MEQ/50 ML RTUPB IV ONE (09:00)
[2016-12-21] MEDS: VANCOMYCIN HCL 1,000 MG in DEXTROSE 5%-WATER 250 ML IV SCH ×2 (10:49→21:27)
[2016-12-21] MEDS: FAMOTIDINE INJ/PF 20 MG/2 ML SDV IV SCH ×2 (10:51→21:27)
[2016-12-21] MEDS: FUROSEMIDE INJ/PF 20 MG/2 ML SDV IV SCH ×2 (10:51→21:27)
--- NOTE | 2016-12-21 11:26 | PDOC PROGRESS REPORT ---
Subjective Progress Note for:: 12/21/16 Subjective:: Intubated and sedated Physical Exam Vital Signs: Temp Pulse Resp BP Pulse Ox 98.4 F 80 17 167/87 H 99 12/21/16 00:27 12/21/16 02:18 12/21/16 02:18 12/21/16 06:49 12/21/16 06:49 Intake & Output 12/20/16 12/21/16 12/22/16 06:59 06:59 06:59 Intake Total 8008 4228 Output Total 1690 1745 Balance 6318 2483 Weight 63.3 kg 63.6 kg General appearance: PRESENT: no acute distress, disheveled, well-developed, well -nourished Head exam: PRESENT: atraumatic, normocephalic Eye exam: PRESENT: conjunctiva pale Neck exam: ABSENT: carotid bruit, JVD, lymphadenopathy, thyromegaly Respiratory exam: PRESENT: decreased breath sounds, prolonged expiratory phas, rales, rhonchi, symmetrical, unlabored Cardiovascular exam: PRESENT: RRR, +S1, +S2 Pulses: PRESENT: normal radial pulses GI/Abdominal exam: PRESENT: other - Status post surgery dressing dry and intact Rectal exam: PRESENT: deferred Gentrourinary exam: PRESENT: indwelling catheter Musculoskeletal exam: PRESENT: normal inspection Skin exam: PRESENT: dry, intact, warm Results Laboratory Results: 12/21/16 05:40 12/21/16 05:40 12/20/16 12/20/16 12/21/16 05:55 05:55 05:40 WBC RBC Hgb Hct MCV MCH MCHC RDW Plt Count Seg Neutrophils % Lymphocytes % Monocytes % Eosinophils % Basophils % Absolute Neutrophils Absolute Lymphocytes Absolute Monocytes Absolute Eosinophils Absolute Basophils Retic Count (auto) 1.56 Absolute Retic 0.045 Carbonic Acid 0.92 L HCO3/H2CO3 Ratio 19:1 ABG pH 7.39 ABG pCO2 30.7 L ABG pO2 42.4 L ABG HCO3 18.3 L ABG O2 Saturation 78.6 L ABG Base Excess -5.9 FiO2 28% Sodium Potassium Chloride Carbon Dioxide Anion Gap BUN Creatinine Est GFR ( Amer) Est GFR (Non-Af Amer) Glucose Lactic Acid Calcium Magnesium Iron < 10.0 L TIBC 162 L % Saturation UNABLE TO CALCULATE Ferritin 202.00 Vitamin B12 754.0 Folate 7.70 12/21/16 12/21/16 12/21/16 05:40 05:40 05:40 WBC 12.9 H RBC 3.13 L Hgb 9.6 L Hct 28.5 L MCV 91 MCH 30.6 MCHC 33.7 RDW 13.0 Plt Count 243 Seg Neutrophils % 89.0 H Lymphocytes % 5.4 L Monocytes % 4.6 Eosinophils % 0.5 Basophils % 0.5 Absolute Neutrophils 11.5 H Absolute Lymphocytes 0.7 Absolute Monocytes 0.6 Absolute Eosinophils 0.1 Absolute Basophils 0.1 Retic Count (auto) Absolute Retic Carbonic Acid HCO3/H2CO3 Ratio ABG pH ABG pCO2 ABG pO2 ABG HCO3 ABG O2 Saturation ABG Base Excess FiO2 Sodium 130.6 L Potassium 3.4 L Chloride 107 Carbon Dioxide 18 L Anion Gap 6 BUN 8 Creatinine 0.54 Est GFR ( Amer) > 60 Est GFR (Non-Af Amer) > 60 Glucose 102 Lactic Acid 0.9 Calcium 8.2 L Magnesium 2.3 Iron TIBC % Saturation Ferritin Vitamin B12 Folate 12/20/16 05:55 NT-Pro-B Natriuret Pep 490 Impressions: Acute Abdomen Series 12/18/16 16:33 IMPRESSION: NO RADIOGRAPHIC EVIDENCE FOR ACUTE ABDOMINAL DISEASE. Abdomen/Pelvis CT 12/18/16 18:45 IMPRESSION: 1. Bowel perforation. Free air and contrast within the abdomen. Based on the appearance, suspect proximal GI tract viscus perforation. Possibly duodenal or gastric ulcer or proximal small bowel. Pertinent findings on the imaging study reported as a CRITICAL RESULT to LUPE HERNANDEZ MD at21:54 on 12/18/2016. Category of Critical Result: Bowel perforation. Chest X-Ray 12/21/16 06:00 IMPRESSION: 1. Support tubes and lines as above. 2. There is increased airspace densities in the right lung in comparison to the prior study and may represent atelectasis, edema, or infiltrate. The right left lung base densities are similar appearance to the prior study. There is hazy densities noted at both lung bases likely representing layering effusions. Assessment & Plan - Diagnosis (1) Acute respiratory failure following trauma and surgery Is this a current diagnosis for this admission?: YesPlan: FiO2 in minute volume decreasing patient very anxious and becomes tachypneic sedation vacations (2) COPD (chronic obstructive pulmonary disease) Qualifiers: COPD type: unspecified COPD Qualified Code(s): J44.9 - Chronic obstructive pulmonary disease, unspecified Is this a current diagnosis for this admission?: YesPlan: Continue current bronchodilator therapy (3) Hyponatremia Is this a current diagnosis for this admission?: YesPlan: Continues to improve (4) Hypocalcemia Is this a current diagnosis for this admission?: YesPlan: Improving (5) Hypoalbuminemia Is this a current diagnosis for this admission?: YesPlan: Status post albumin infusion (6) Septic shock Is this a current diagnosis for this admission?: YesPlan: Currently not requiring vasopressor therapy - Time Critical Time spent with patient: 35 or more minutes
[2016-12-21] MEDS: LORAZEPAM 24 MG/240 ML BAG IV PRN ×5 (11:40→22:49)
--- NOTE | 2016-12-21 12:48 | PDOC PROGRESS REPORT ---
Subjective Subjective:: No nausea, vomiting, flatus, BM. NG tube output was scant. Physical Exam Vital Signs: Temp Pulse Resp BP Pulse Ox 98.3 F 113 H 33 H 122/71 95 12/21/16 10:00 12/21/16 10:00 12/21/16 10:00 12/21/16 10:00 12/21/16 11:57 Intake & Output 12/20/16 12/21/16 12/22/16 06:59 06:59 06:59 Intake Total 8008 4228 Output Total 1690 1745 115 Balance 6318 2483 -115 Weight 63.3 kg 63.6 kg General appearance: PRESENT: other - Intubated, sedated Eye exam: PRESENT: EOMI Respiratory exam: PRESENT: other - Coarse breath sounds bilaterally GI/Abdominal exam: PRESENT: distended - Mild distention. No bowel sounds. Incision intact with niles. JPs with serosanguineous., soft Extremities exam: PRESENT: pedal edema Neurological exam: PRESENT: other - Intubated sedated Results Laboratory Results: 12/21/16 05:40 12/21/16 05:40 12/21/16 12/21/16 12/21/16 05:40 05:40 05:40 WBC 12.9 H RBC 3.13 L Hgb 9.6 L Hct 28.5 L MCV 91 MCH 30.6 MCHC 33.7 RDW 13.0 Plt Count 243 Seg Neutrophils % 89.0 H Lymphocytes % 5.4 L Monocytes % 4.6 Eosinophils % 0.5 Basophils % 0.5 Absolute Neutrophils 11.5 H Absolute Lymphocytes 0.7 Absolute Monocytes 0.6 Absolute Eosinophils 0.1 Absolute Basophils 0.1 Carbonic Acid 0.92 L HCO3/H2CO3 Ratio 19:1 ABG pH 7.39 ABG pCO2 30.7 L ABG pO2 42.4 L ABG HCO3 18.3 L ABG O2 Saturation 78.6 L ABG Base Excess -5.9 FiO2 28% Sodium 130.6 L Potassium 3.4 L Chloride 107 Carbon Dioxide 18 L Anion Gap 6 BUN 8 Creatinine 0.54 Est GFR ( Amer) > 60 Est GFR (Non-Af Amer) > 60 Glucose 102 Lactic Acid Calcium 8.2 L Magnesium 2.3 12/21/16 05:40 WBC RBC Hgb Hct MCV MCH MCHC RDW Plt Count Seg Neutrophils % Lymphocytes % Monocytes % Eosinophils % Basophils % Absolute Neutrophils Absolute Lymphocytes Absolute Monocytes Absolute Eosinophils Absolute Basophils Carbonic Acid HCO3/H2CO3 Ratio ABG pH ABG pCO2 ABG pO2 ABG HCO3 ABG O2 Saturation ABG Base Excess FiO2 Sodium Potassium Chloride Carbon Dioxide Anion Gap BUN Creatinine Est GFR ( Amer) Est GFR (Non-Af Amer) Glucose Lactic Acid 0.9 Calcium Magnesium 12/19/16 11:31 Tracheal Aspirate Gram Stain - Final 12/19/16 11:31 Tracheal Aspirate Sputum Culture - Final NORMAL MIRYAM 12/20/16 05:55 NT-Pro-B Natriuret Pep 490 Impressions: Acute Abdomen Series 12/18/16 16:33 IMPRESSION: NO RADIOGRAPHIC EVIDENCE FOR ACUTE ABDOMINAL DISEASE. Abdomen/Pelvis CT 12/18/16 18:45 IMPRESSION: 1. Bowel perforation. Free air and contrast within the abdomen. Based on the appearance, suspect proximal GI tract viscus perforation. Possibly duodenal or gastric ulcer or proximal small bowel. Pertinent findings on the imaging study reported as a CRITICAL RESULT to LUPE HERNANDEZ MD at21:54 on 12/18/2016. Category of Critical Result: Bowel perforation. Chest X-Ray 12/21/16 06:00 IMPRESSION: 1. Support tubes and lines as above. 2. There is increased airspace densities in the right lung in comparison to the prior study and may represent atelectasis, edema, or infiltrate. The right left lung base densities are similar appearance to the prior study. There is hazy densities noted at both lung bases likely representing layering effusions. Assessment & Plan - Diagnosis (1) Acute perforated duodenal ulcer with hemorrhage Is this a current diagnosis for this admission?: YesPlan: Bilateral pneumonia. Being treated by IV antibiotics. Also getting diuresed hospitalist. Appreciate hospitalists and pulmonology input. White count and tachycardic. I I believe the source of the white count and tachycardia is the pneumonia and possibly withdrawal from alcohol. The abdomen seems benign. It is minimally distended, incision looks good, KAREN drains are benign with serous fluid. No bowel function yet. We discussed nutrition. I would consider TPN on Monday or Monday if his bowel function has not returned by then. It would be preferable to feed him by mouth or by tube feeds if he begins to have function prior to that. Discussed at length with his sister and another relative. Also spoke with the hospitalist. (2) Alcohol abuse Is this a current diagnosis for this admission?: Yes (3) COPD (chronic obstructive pulmonary disease) Qualifiers: COPD type: unspecified COPD Qualified Code(s): J44.9 - Chronic obstructive pulmonary disease, unspecified Is this a current diagnosis for this admission?: Yes (4) DVT prophylaxis Is this a current diagnosis for this admission?: Yes (5) Smoker Is this a current diagnosis for this admission?: Yes
[2016-12-22] MEDS: NORMAL SALINE 1000 ML 1,000 ML with POTASSIUM CHLORIDE 20 MEQ, MAGNESIUM SULFATE 8 MEQ,... IV PRN ×5 (01:01)
[2016-12-22] MEDS: IPRATROPIUM/ALBUTEROL 0.5-2.5 MG/3 ML AMPUL NEB SCH ×4 (01:47→19:45)
[2016-12-22] MEDS: LORAZEPAM INJ 2 MG/1 ML VIAL IV SCH (03:30)
[2016-12-22] MEDS: PROPOFOL 100 ML IV PRN ×3 (04:12→18:45)
[2016-12-22] MEDS: LORAZEPAM 24 MG/240 ML BAG IV PRN ×7 (04:16→23:55)
[2016-12-22 06:02] LABS: ARTERIAL BLOOD BASE EXCESS -5.3 mmol/L; ARTERIAL BLOOD O2 SATURATION 92.9 % (94-98)
[2016-12-22] MEDS: IMIPENEM/CILASTATIN SODIUM 500 MG in NORMAL SALINE 100 ML IV SCH (06:08)
[2016-12-22 06:20] LABS: ANION GAP 7 (5-19); BLOOD UREA NITROGEN 7 mg/dL (7-20); CALCIUM 7.8 mg/dL (8.4-10.2); CARBON DIOXIDE 19 mmol/L (22-30); CHLORIDE 104 mmol/L (98-107); CREATININE RESULT 0.55 mg/dL (0.52-1.25); GLUCOSE 110 mg/dL (75-110); MAGNESIUM 1.9 mg/dL (1.6-2.3); POTASSIUM 3.2 mmol/L (3.6-5.0); SODIUM 129.5 mmol/L (137-145); TRIGLYCERIDES 66 mg/dL (<150)
[2016-12-22 06:27] LABS: HEMATOCRIT 28.9 % (37.9-51.0); HEMOGLOBIN 9.9 g/dL (13.5-17.0); HGB HCT DIFFERENCE 0.8; MEAN CORPUSCULAR HEMOGLOBIN 30.8 pg (27.0-33.4); MEAN CORPUSCULAR HGB CONC 34.4 g/dL (32.0-36.0); MEAN CORPUSCULAR VOLUME 90 fl (80-97); RED BLOOD COUNT 3.23 10^6/uL (4.35-5.55); RED CELL DISTRIBUTION WIDTH 12.9 % (11.5-14.0); WHITE BLOOD COUNT 14.9 10^3/uL (4.0-10.5)
[2016-12-22 06:58] LABS: BASOPHILS % (MANUAL) 0 % (0-2); EOSINOPHILS % (MANUAL) 1 % (0-6); LYMPHOCYTES % (MANUAL) 5 % (13-45); TOTAL CELLS COUNTED 100
[2016-12-22 07:01] LABS: HYPOCHROMASIA SLIGHT; OVALOCYTES SLIGHT; POIKILOCYTOSIS SLIGHT; POLYCHROMASIA SLIGHT; TOXIC GRANULATION SLIGHT
[2016-12-22] MEDS ORDERED: PIPERACILLIN SODIUM/TAZOBACTAM 3.375 GM in NORMAL SALINE 100 ML IV SCH (07:45)
[2016-12-22] MEDS: POTASSI CL 20 MEQ/50 ML RIDER 20 MEQ/50 ML RTUPB IV SCH ×2 (08:11→10:47)
[2016-12-22] MEDS: LEVOFLOXACIN 750 MG/D5W RTU 750 MG/150 ML RTUPB IV SCH (08:11)
[2016-12-22 08:32] LABS: APPEARANCE,URINE CLEAR; BILIRUBIN,URINE NEGATIVE (NEGATIVE); GLUCOSE, URINE 50 mg/dL (NEGATIVE); KETONES,URINE NEGATIVE (NEGATIVE); LEUKOCYTE ESTERASE,URINE NEGATIVE (NEGATIVE); NITRITE,URINE NEGATIVE (NEGATIVE); PROTEIN,URINE NEGATIVE (NEGATIVE); UROBILINOGEN,URINE NEGATIVE mg/dL (<2.0)
--- NOTE | 2016-12-22 09:01 | PDOC PROGRESS REPORT ---
Subjective Progress Note for:: 12/22/16 Subjective:: Intubated and sedated Physical Exam Vital Signs: Temp Pulse Resp BP Pulse Ox 99.0 F 88 28 H 115/72 93 12/22/16 05:36 12/22/16 08:11 12/22/16 08:11 12/22/16 06:06 12/22/16 08:11 Intake & Output 12/21/16 12/22/16 12/23/16 06:59 06:59 06:59 Intake Total 4228 4930 Output Total 6366 9305 Balance 2483 -127 Weight 63.6 kg 64.3 kg General appearance: PRESENT: disheveled, well-developed, well-nourished Head exam: PRESENT: atraumatic, normocephalic Eye exam: PRESENT: conjunctiva pale Mouth exam: PRESENT: tongue midline, other - ET tube Neck exam: ABSENT: carotid bruit, JVD, lymphadenopathy, thyromegaly Respiratory exam: PRESENT: decreased breath sounds, prolonged expiratory phas, rhonchi, symmetrical, unlabored, wheezes Cardiovascular exam: PRESENT: RRR, +S1, +S2 Pulses: PRESENT: normal radial pulses GI/Abdominal exam: PRESENT: other - s/p surgery Rectal exam: PRESENT: deferred Gentrourinary exam: PRESENT: indwelling catheter Musculoskeletal exam: PRESENT: normal inspection Skin exam: PRESENT: dry, warm Results Laboratory Results: 12/22/16 05:40 12/22/16 05:40 12/22/16 12/22/16 12/22/16 05:40 05:40 05:40 WBC 14.9 H RBC 3.23 L Hgb 9.9 L Hct 28.9 L MCV 90 MCH 30.8 MCHC 34.4 RDW 12.9 Plt Count 256 Seg Neutrophils % Not Reportable Lymphocytes % Not Reportable Monocytes % Not Reportable Eosinophils % Not Reportable Basophils % Not Reportable Absolute Neutrophils Not Reportable Absolute Lymphocytes Not Reportable Absolute Monocytes Not Reportable Absolute Eosinophils Not Reportable Absolute Basophils Not Reportable Carbonic Acid 0.84 L HCO3/H2CO3 Ratio 21:1 ABG pH 7.42 ABG pCO2 28.0 L ABG pO2 62.6 L ABG HCO3 17.9 L ABG O2 Saturation 92.9 L ABG Base Excess -5.3 FiO2 28% Sodium 129.5 L Potassium 3.2 L Chloride 104 Carbon Dioxide 19 L Anion Gap 7 BUN 7 Creatinine 0.55 Est GFR ( Amer) > 60 Est GFR (Non-Af Amer) > 60 Glucose 110 Calcium 7.8 L Magnesium 1.9 Triglycerides 66 Urine Color Urine Appearance Urine pH Ur Specific [place] Urine Protein Urine Glucose (UA) Urine Ketones Urine Blood Urine Nitrite Ur Leukocyte Esterase Urine WBC (Auto) Urine RBC (Auto) 12/22/16 08:17 WBC RBC Hgb Hct MCV MCH MCHC RDW Plt Count Seg Neutrophils % Lymphocytes % Monocytes % Eosinophils % Basophils % Absolute Neutrophils Absolute Lymphocytes Absolute Monocytes Absolute Eosinophils Absolute Basophils Carbonic Acid HCO3/H2CO3 Ratio ABG pH ABG pCO2 ABG pO2 ABG HCO3 ABG O2 Saturation ABG Base Excess FiO2 Sodium Potassium Chloride Carbon Dioxide Anion Gap BUN Creatinine Est GFR ( Amer) Est GFR (Non-Af Amer) Glucose Calcium Magnesium Triglycerides Urine Color YELLOW Urine Appearance CLEAR Urine pH 5.0 Ur Specific [place] 1.010 Urine Protein NEGATIVE Urine Glucose (UA) 50 H Urine Ketones NEGATIVE Urine Blood NEGATIVE Urine Nitrite NEGATIVE Ur Leukocyte Esterase NEGATIVE Urine WBC (Auto) 0 Urine RBC (Auto) 0 12/19/16 11:31 Tracheal Aspirate Gram Stain - Final 12/19/16 11:31 Tracheal Aspirate Sputum Culture - Final NORMAL MIRYAM 12/20/16 05:55 NT-Pro-B Natriuret Pep 490 Impressions: Acute Abdomen Series 12/18/16 16:33 IMPRESSION: NO RADIOGRAPHIC EVIDENCE FOR ACUTE ABDOMINAL DISEASE. Abdomen/Pelvis CT 12/18/16 18:45 IMPRESSION: 1. Bowel perforation. Free air and contrast within the abdomen. Based on the appearance, suspect proximal GI tract viscus perforation. Possibly duodenal or gastric ulcer or proximal small bowel. Pertinent findings on the imaging study reported as a CRITICAL RESULT to LUPE HERNANDEZ MD at21:54 on 12/18/2016. Category of Critical Result: Bowel perforation. Chest X-Ray 12/22/16 06:00 IMPRESSION: Worsening edema versus rehydration or worsening sepsis. No pneumothorax. Assessment & Plan - Diagnosis (1) Acute respiratory failure following trauma and surgery Is this a current diagnosis for this admission?: YesPlan: unchanged (2) COPD (chronic obstructive pulmonary disease) Qualifiers: COPD type: unspecified COPD Qualified Code(s): J44.9 - Chronic obstructive pulmonary disease, unspecified Is this a current diagnosis for this admission?: YesPlan: Continue current bronchodilator therapy (3) Hyponatremia Is this a current diagnosis for this admission?: Yes (4) Hypocalcemia Is this a current diagnosis for this admission?: YesPlan: Improving (5) Hypoalbuminemia Is this a current diagnosis for this admission?: YesPlan: Status post albumin infusion (6) Septic shock Is this a current diagnosis for this admission?: No
[2016-12-22] MEDS: PIPERACILLIN SODIUM/TAZOBACTAM 3.375 GM in NORMAL SALINE 100 ML IV SCH ×3 (09:20→21:03)
[2016-12-22] MEDS ORDERED: LEVOFLOXACIN 750 MG/D5W RTU 750 MG/150 ML RTUPB IV SCH (10:00)
[2016-12-22] MEDS: FUROSEMIDE INJ/PF 40 MG/4 ML SDV IV SCH ×2 (10:48→21:04)
[2016-12-22] MEDS: FAMOTIDINE INJ/PF 20 MG/2 ML SDV IV SCH ×2 (10:57→21:06)
[2016-12-22] MEDS: VANCOMYCIN HCL 1,000 MG in DEXTROSE 5%-WATER 250 ML IV SCH ×2 (10:57→18:32)
[2016-12-22] MEDS: POTASSI CL 20 MEQ/D5NS 1L 1,000 ML IV PRN (13:33)
--- NOTE | 2016-12-22 18:05 | PDOC PROGRESS REPORT ---
Subjective Subjective:: Pt sedated , on vent Physical Exam Vital Signs: Temp Pulse Resp BP Pulse Ox 98.6 F 86 21 H 143/75 H 98 12/22/16 12:00 12/22/16 14:00 12/22/16 14:00 12/22/16 17:21 12/22/16 17:30 Intake & Output 12/21/16 12/22/16 12/23/16 06:59 06:59 06:59 Intake Total 422 4953 2564 Output Total 4110 5115 2525 Balance 2483 -127 39 Weight 63.6 kg 64.3 kg General appearance: PRESENT: other - sedated GI/Abdominal exam: PRESENT: other - soft, OP site looks fine; drain serous, non -bilious Results Laboratory Results: 12/22/16 05:40 12/22/16 05:40 12/22/16 12/22/16 12/22/16 05:40 05:40 05:40 WBC 14.9 H RBC 3.23 L Hgb 9.9 L Hct 28.9 L MCV 90 MCH 30.8 MCHC 34.4 RDW 12.9 Plt Count 256 Seg Neutrophils % Not Reportable Lymphocytes % Not Reportable Monocytes % Not Reportable Eosinophils % Not Reportable Basophils % Not Reportable Absolute Neutrophils Not Reportable Absolute Lymphocytes Not Reportable Absolute Monocytes Not Reportable Absolute Eosinophils Not Reportable Absolute Basophils Not Reportable Carbonic Acid 0.84 L HCO3/H2CO3 Ratio 21:1 ABG pH 7.42 ABG pCO2 28.0 L ABG pO2 62.6 L ABG HCO3 17.9 L ABG O2 Saturation 92.9 L ABG Base Excess -5.3 FiO2 28% Sodium 129.5 L Potassium 3.2 L Chloride 104 Carbon Dioxide 19 L Anion Gap 7 BUN 7 Creatinine 0.55 Est GFR ( Amer) > 60 Est GFR (Non-Af Amer) > 60 Glucose 110 Calcium 7.8 L Magnesium 1.9 Albumin Triglycerides 66 Urine Color Urine Appearance Urine pH Ur Specific [place] Urine Protein Urine Glucose (UA) Urine Ketones Urine Blood Urine Nitrite Ur Leukocyte Esterase Urine WBC (Auto) Urine RBC (Auto) 12/22/16 12/22/16 08:17 09:47 WBC RBC Hgb Hct MCV MCH MCHC RDW Plt Count Seg Neutrophils % Lymphocytes % Monocytes % Eosinophils % Basophils % Absolute Neutrophils Absolute Lymphocytes Absolute Monocytes Absolute Eosinophils Absolute Basophils Carbonic Acid HCO3/H2CO3 Ratio ABG pH ABG pCO2 ABG pO2 ABG HCO3 ABG O2 Saturation ABG Base Excess FiO2 Sodium Potassium Chloride Carbon Dioxide Anion Gap BUN Creatinine Est GFR ( Amer) Est GFR (Non-Af Amer) Glucose Calcium Magnesium Albumin 1.5 L Triglycerides Urine Color YELLOW Urine Appearance CLEAR Urine pH 5.0 Ur Specific [place] 1.010 Urine Protein NEGATIVE Urine Glucose (UA) 50 H Urine Ketones NEGATIVE Urine Blood NEGATIVE Urine Nitrite NEGATIVE Ur Leukocyte Esterase NEGATIVE Urine WBC (Auto) 0 Urine RBC (Auto) 0 12/20/16 05:55 NT-Pro-B Natriuret Pep 490 Impressions: Acute Abdomen Series 12/18/16 16:33 IMPRESSION: NO RADIOGRAPHIC EVIDENCE FOR ACUTE ABDOMINAL DISEASE. Abdomen/Pelvis CT 12/18/16 18:45 IMPRESSION: 1. Bowel perforation. Free air and contrast within the abdomen. Based on the appearance, suspect proximal GI tract viscus perforation. Possibly duodenal or gastric ulcer or proximal small bowel. Pertinent findings on the imaging study reported as a CRITICAL RESULT to LUPE HERNANDEZ MD at21:54 on 12/18/2016. Category of Critical Result: Bowel perforation. Chest X-Ray 12/22/16 06:00 IMPRESSION: Worsening edema versus rehydration or worsening sepsis. No pneumothorax. Assessment & Plan - Diagnosis (1) Perforated abdominal viscus Is this a current diagnosis for this admission?: YesPlan: 1. 4 days s/p ex lap, closure perf. PUD at 1st portion duodenum for malnutrition, repsiratory failure 2. PLAN: tomorrow obtain limited upper gi study thru NG tube, which ends in his stomach; if unremarkable, can plan to start tube feeds (2) Alcohol abuse Is this a current diagnosis for this admission?: Yes (3) Abuse of smoked substance Is this a current diagnosis for this admission?: Yes (4) Smoker Is this a current diagnosis for this admission?: Yes (5) Atherosclerosis of abdominal aorta Is this a current diagnosis for this admission?: Yes
--- NOTE | 2016-12-22 19:10 | PDOC PROGRESS REPORT ---
Subjective Progress Note for:: 12/22/16 Subjective:: Patient has increasing white blood count. Worsening chest x-ray. Unable to obtain history or review of systems secondary to sedated intubated state. Physical Exam Vital Signs: Temp Pulse Resp BP Pulse Ox 98.2 F 84 17 116/62 95 12/22/16 16:00 12/22/16 18:00 12/22/16 18:00 12/22/16 18:21 12/22/16 18:30 Intake & Output 12/21/16 12/22/16 12/23/16 06:59 06:59 06:59 Intake Total 4227 4965 2563 Output Total 5282 2665 3525 Balance 2411 -343 -189 Weight 63.6 kg 64.3 kg GENERAL: No acute distress, sedated/intubated HEENT: Conjunctiva clear, nonicteric, moist mucous membranes, no JVD, midline trachea RESPIRATORY: Bilateral rhonchi CARDIAC: Regular rate and rhythm, no murmurs/gallops/rubs ABDOMEN: Soft, nondistended, nontender, positive bowel sounds, no rebound, no guarding EXTREMETIES: Bilateral upper extremity edema noted NEUROLOGIC: Sedated SKIN: No rash, wounds Results Laboratory Results: 12/22/16 05:40 12/22/16 05:40 12/22/16 12/22/16 12/22/16 05:40 05:40 05:40 WBC 14.9 H RBC 3.23 L Hgb 9.9 L Hct 28.9 L MCV 90 MCH 30.8 MCHC 34.4 RDW 12.9 Plt Count 256 Seg Neutrophils % Not Reportable Lymphocytes % Not Reportable Monocytes % Not Reportable Eosinophils % Not Reportable Basophils % Not Reportable Absolute Neutrophils Not Reportable Absolute Lymphocytes Not Reportable Absolute Monocytes Not Reportable Absolute Eosinophils Not Reportable Absolute Basophils Not Reportable Carbonic Acid 0.84 L HCO3/H2CO3 Ratio 21:1 ABG pH 7.42 ABG pCO2 28.0 L ABG pO2 62.6 L ABG HCO3 17.9 L ABG O2 Saturation 92.9 L ABG Base Excess -5.3 FiO2 28% Sodium 129.5 L Potassium 3.2 L Chloride 104 Carbon Dioxide 19 L Anion Gap 7 BUN 7 Creatinine 0.55 Est GFR ( Amer) > 60 Est GFR (Non-Af Amer) > 60 Glucose 110 Calcium 7.8 L Magnesium 1.9 Albumin Triglycerides 66 Urine Color Urine Appearance Urine pH Ur Specific [place] Urine Protein Urine Glucose (UA) Urine Ketones Urine Blood Urine Nitrite Ur Leukocyte Esterase Urine WBC (Auto) Urine RBC (Auto) 12/22/16 12/22/16 08:17 09:47 WBC RBC Hgb Hct MCV MCH MCHC RDW Plt Count Seg Neutrophils % Lymphocytes % Monocytes % Eosinophils % Basophils % Absolute Neutrophils Absolute Lymphocytes Absolute Monocytes Absolute Eosinophils Absolute Basophils Carbonic Acid HCO3/H2CO3 Ratio ABG pH ABG pCO2 ABG pO2 ABG HCO3 ABG O2 Saturation ABG Base Excess FiO2 Sodium Potassium Chloride Carbon Dioxide Anion Gap BUN Creatinine Est GFR ( Amer) Est GFR (Non-Af Amer) Glucose Calcium Magnesium Albumin 1.5 L Triglycerides Urine Color YELLOW Urine Appearance CLEAR Urine pH 5.0 Ur Specific [place] 1.010 Urine Protein NEGATIVE Urine Glucose (UA) 50 H Urine Ketones NEGATIVE Urine Blood NEGATIVE Urine Nitrite NEGATIVE Ur Leukocyte Esterase NEGATIVE Urine WBC (Auto) 0 Urine RBC (Auto) 0 12/20/16 05:55 NT-Pro-B Natriuret Pep 490 Impressions: Acute Abdomen Series 12/18/16 16:33 IMPRESSION: NO RADIOGRAPHIC EVIDENCE FOR ACUTE ABDOMINAL DISEASE. Abdomen/Pelvis CT 12/18/16 18:45 IMPRESSION: 1. Bowel perforation. Free air and contrast within the abdomen. Based on the appearance, suspect proximal GI tract viscus perforation. Possibly duodenal or gastric ulcer or proximal small bowel. Pertinent findings on the imaging study reported as a CRITICAL RESULT to LPUE HERNANDEZ MD at21:54 on 12/18/2016. Category of Critical Result: Bowel perforation. Chest X-Ray 12/22/16 06:00 IMPRESSION: Worsening edema versus rehydration or worsening sepsis. No pneumothorax. Assessment & Plan - Diagnosis (1) Septic shock Is this a current diagnosis for this admission?: NoPlan: Blood pressure now stable off pressors. (2) Pneumonia Is this a current diagnosis for this admission?: YesPlan: High probability of gram-negative bacterial infection given chronic alcohol abuse and hospitalization/mechanical ventilation. IV Zosyn, IV Levaquin and Vancomycin. Repeat blood culture and sputum culture. (3) Acute respiratory failure following trauma and surgery Is this a current diagnosis for this admission?: YesPlan: Continue mechanical ventilation with weaning strategy per Dr. Daniels of pulmonary medicine. Chest x-ray with worsening appearance today of airspace disease. Increase Lasix to 40 mg IV every 12 hours and decrease IV fluid rate. ProBNP level is normal, however echocardiogram shows grade 2/4 diastolic dysfunction, normal EF. (4) Acute perforated duodenal ulcer with hemorrhage Is this a current diagnosis for this admission?: YesPlan: Postoperative day #2. Managed by surgery. Patient currently nothing by mouth. (5) Peritonitis (acute) generalized Is this a current diagnosis for this admission?: Yes (6) COPD (chronic obstructive pulmonary disease) Qualifiers: COPD type: unspecified COPD Qualified Code(s): J44.9 - Chronic obstructive pulmonary disease, unspecified Is this a current diagnosis for this admission?: YesPlan: Continue duo nebs every 6 hours scheduled. (7) Hypoalbuminemia Is this a current diagnosis for this admission?: YesPlan: Secondary to alcohol abuse and chronic malnutrition. (8) Hypocalcemia Is this a current diagnosis for this admission?: YesPlan: Corrected calcium for albumin normal. (9) Hyponatremia Is this a current diagnosis for this admission?: YesPlan: Likely secondary to chronic alcohol abuse. (10) protein calorie malnourishment Is this a current diagnosis for this admission?: YesPlan: Patient is currently nothing by mouth status post abdominal surgery. Initiate nutritional support as soon as possible. Discussed with surgery and if patient unable to take enterofeeding in the next 1-2 days we may have to start TPN. (11) Anemia Is this a current diagnosis for this admission?: YesPlan: Labs consistent with iron deficiency/chronic disease/malnutrition. Hemoccult negative. Continue iron supplementation. Initiate nutritional support once advised by surgery. (12) Alcohol abuse Is this a current diagnosis for this admission?: YesPlan: Continue IV thiamine and multivitamin supplementation. Patient is currently on a Versed drip and showing no signs of alcohol withdrawal. (13) Tobacco abuse Is this a current diagnosis for this admission?: Yes (14) Hypokalemia Is this a current diagnosis for this admission?: YesPlan: Replace as needed. - Time Critical Time spent with patient: Less than 15 minutes
[2016-12-23] MEDS: IPRATROPIUM/ALBUTEROL 0.5-2.5 MG/3 ML AMPUL NEB SCH ×4 (02:06→20:48)
[2016-12-23] MEDS: PIPERACILLIN SODIUM/TAZOBACTAM 3.375 GM in NORMAL SALINE 100 ML IV SCH ×4 (02:08→21:48)
[2016-12-23] MEDS: VANCOMYCIN HCL 1,000 MG in DEXTROSE 5%-WATER 250 ML IV SCH ×3 (02:08→17:15)
[2016-12-23] MEDS: NORMAL SALINE 1000 ML 1,000 ML with POTASSIUM CHLORIDE 20 MEQ, MAGNESIUM SULFATE 8 MEQ,... IV PRN ×10 (02:16→21:55)
[2016-12-23] MEDS: POTASSI CL 20 MEQ/D5NS 1L 1,000 ML IV PRN ×2 (02:16→21:59)
[2016-12-23] MEDS: LORAZEPAM 24 MG/240 ML BAG IV PRN ×5 (03:43→22:01)
[2016-12-23] MEDS: PROPOFOL 100 ML IV PRN ×3 (05:08→16:42)
[2016-12-23 05:32] LABS: ABSOLUTE BASOPHILS # (AUTO) 0.1 10^3/uL (0.0-0.2); ABSOLUTE EOSINOPHILS # (AUTO) 0.1 10^3/uL (0.0-0.6); ABSOLUTE LYMPHOCYTES (AUTO) 0.6 10^3/uL (0.5-4.7); ABSOLUTE MONOCYTES (AUTO) 1.6 10^3/uL (0.1-1.4); ABSOLUTE NEUT (AUTO) 9.5 10^3/uL (1.7-8.2); BASOPHILS % (AUTO) 0.4 % (0-2); EOSINOPHILS % (AUTO) 0.8 % (0-6); HEMATOCRIT 28.9 % (37.9-51.0); HEMOGLOBIN 9.9 g/dL (13.5-17.0); HGB HCT DIFFERENCE 0.8; LYMPHOCYTES % (AUTO) 5.2 % (13-45); MEAN CORPUSCULAR HEMOGLOBIN 30.5 pg (27.0-33.4); MEAN CORPUSCULAR HGB CONC 34.3 g/dL (32.0-36.0); MEAN CORPUSCULAR VOLUME 89 fl (80-97); MONOCYTES % (AUTO) 13.2 % (3-13); RED BLOOD COUNT 3.25 10^6/uL (4.35-5.55); RED CELL DISTRIBUTION WIDTH 12.7 % (11.5-14.0); SEGMENTED NEUTROPHILS % (AUTO) 80.4 % (42-78); WHITE BLOOD COUNT 11.8 10^3/uL (4.0-10.5)
[2016-12-23 05:34] LABS: ARTERIAL BLOOD BASE EXCESS 0.1 mmol/L; ARTERIAL BLOOD O2 SATURATION 96.1 % (94-98)
[2016-12-23 05:47] LABS: ALANINE AMINOTRANSFERASE 30 U/L (21-72); ALKALINE PHOSPHATASE 52 U/L (38-126); ANION GAP 9 (5-19); ASPARTATE AMINO TRANSFERASE 24 U/L (17-59); BILIRUBIN,TOTAL 0.2 mg/dL (0.2-1.3); BLOOD UREA NITROGEN 6 mg/dL (7-20); CALCIUM 7.7 mg/dL (8.4-10.2); CARBON DIOXIDE 21 mmol/L (22-30); CHLORIDE 99 mmol/L (98-107); CREATININE RESULT 0.62 mg/dL (0.52-1.25); GLUCOSE 121 mg/dL (75-110); MAGNESIUM 1.6 mg/dL (1.6-2.3); SODIUM 129.2 mmol/L (137-145)
[2016-12-23] MEDS: LEVOFLOXACIN 750 MG/D5W RTU 750 MG/150 ML RTUPB IV SCH (07:49)
[2016-12-23] MEDS: POTASSI CL 20 MEQ/50 ML RIDER 20 MEQ/50 ML RTUPB IV SCH ×2 (08:49→11:57)
--- NOTE | 2016-12-23 10:21 | PDOC PROGRESS REPORT ---
Subjective Progress Note for:: 12/23/16 Physical Exam Vital Signs: Temp Pulse Resp BP Pulse Ox 97.8 F 89 19 130/70 H 98 12/23/16 10:00 12/23/16 10:00 12/23/16 10:00 12/23/16 10:00 12/23/16 10:00 Intake & Output 12/22/16 12/23/16 12/24/16 06:59 06:59 06:59 Intake Total 4988 5155 Output Total 5915 7580 205 Balance -127 -2425 -205 Weight 64.3 kg 60.1 kg GI/Abdominal exam: PRESENT: other - soft abdomen keagan drain serous Results Laboratory Results: 12/23/16 05:20 12/23/16 05:20 12/22/16 12/23/16 12/23/16 09:47 05:20 05:20 WBC RBC Hgb Hct MCV MCH MCHC RDW Plt Count Seg Neutrophils % Lymphocytes % Monocytes % Eosinophils % Basophils % Absolute Neutrophils Absolute Lymphocytes Absolute Monocytes Absolute Eosinophils Absolute Basophils Carbonic Acid 1.00 L HCO3/H2CO3 Ratio 23:1 ABG pH 7.47 H ABG pCO2 33.1 L ABG pO2 76.6 L ABG HCO3 23.4 ABG O2 Saturation 96.1 ABG Base Excess 0.1 FiO2 28% Sodium 129.2 L Potassium 3.0 L* Chloride 99 Carbon Dioxide 21 L Anion Gap 9 BUN 6 L Creatinine 0.62 Est GFR ( Amer) > 60 Est GFR (Non-Af Amer) > 60 Glucose 121 H Calcium 7.7 L Magnesium 1.6 Total Bilirubin 0.2 AST 24 ALT 30 Alkaline Phosphatase 52 Total Protein 4.0 L Albumin 1.5 L 2.0 L 12/23/16 05:20 WBC 11.8 H RBC 3.25 L Hgb 9.9 L Hct 28.9 L MCV 89 MCH 30.5 MCHC 34.3 RDW 12.7 Plt Count 284 Seg Neutrophils % 80.4 H Lymphocytes % 5.2 L Monocytes % 13.2 H Eosinophils % 0.8 Basophils % 0.4 Absolute Neutrophils 9.5 H Absolute Lymphocytes 0.6 Absolute Monocytes 1.6 H Absolute Eosinophils 0.1 Absolute Basophils 0.1 Carbonic Acid HCO3/H2CO3 Ratio ABG pH ABG pCO2 ABG pO2 ABG HCO3 ABG O2 Saturation ABG Base Excess FiO2 Sodium Potassium Chloride Carbon Dioxide Anion Gap BUN Creatinine Est GFR ( Amer) Est GFR (Non-Af Amer) Glucose Calcium Magnesium Total Bilirubin AST ALT Alkaline Phosphatase Total Protein Albumin 12/20/16 05:55 NT-Pro-B Natriuret Pep 490 Impressions: Acute Abdomen Series 12/18/16 16:33 IMPRESSION: NO RADIOGRAPHIC EVIDENCE FOR ACUTE ABDOMINAL DISEASE. Abdomen/Pelvis CT 12/18/16 18:45 IMPRESSION: 1. Bowel perforation. Free air and contrast within the abdomen. Based on the appearance, suspect proximal GI tract viscus perforation. Possibly duodenal or gastric ulcer or proximal small bowel. Pertinent findings on the imaging study reported as a CRITICAL RESULT to LUPE HERNANDEZ MD at21:54 on 12/18/2016. Category of Critical Result: Bowel perforation. Chest X-Ray 12/23/16 06:00 IMPRESSION: Improving edema or sepsis. No pneumothorax. Assessment & Plan - Plan Summary Plan Summary: continue Vent care IV ABX Tricle feeds if upper GI study looks ok TPN
[2016-12-23] MEDS: FAMOTIDINE INJ/PF 20 MG/2 ML SDV IV SCH ×2 (11:58→21:49)
[2016-12-23] MEDS: FUROSEMIDE INJ/PF 40 MG/4 ML SDV IV SCH ×2 (11:58→21:49)
[2016-12-23 12:48] LABS: ANION GAP 7 (5-19); BLOOD UREA NITROGEN 6 mg/dL (7-20); CALCIUM 7.8 mg/dL (8.4-10.2); CARBON DIOXIDE 23 mmol/L (22-30); CHLORIDE 100 mmol/L (98-107); CREATININE RESULT 0.53 mg/dL (0.52-1.25); GLUCOSE 112 mg/dL (75-110); POTASSIUM 3.5 mmol/L (3.6-5.0); SODIUM 129.7 mmol/L (137-145)
--- NOTE | 2016-12-23 16:25 | PDOC PROGRESS REPORT ---
Subjective Progress Note for:: 12/23/16 Subjective:: The patient remains intubated and sedated on a ventilator. He is therefore unable to answer questions or follow commands. Upper GI was ordered today to determine whether he should start tube feedings versus TPN. Hypokalemia was noted on morning labs. Physical Exam Vital Signs: Temp Pulse Resp BP Pulse Ox 101.8 F H 97 19 115/60 97 12/23/16 15:59 12/23/16 15:59 12/23/16 15:59 12/23/16 15:59 12/23/16 15:59 Intake & Output 12/22/16 12/23/16 12/24/16 06:59 06:59 06:59 Intake Total 4988 5155 Output Total 5117 7580 2785 Balance -127 -2425 -2785 Weight 64.3 kg 60.1 kg General appearance: PRESENT: no acute distress, other - Intubated, sedated, on the ventilator. Head exam: PRESENT: atraumatic, normocephalic Eye exam: ABSENT: scleral icterus Ear exam: PRESENT: normal external ear exam Neck exam: ABSENT: carotid bruit, JVD, lymphadenopathy, thyromegaly Respiratory exam: PRESENT: rhonchi Cardiovascular exam: PRESENT: RRR. ABSENT: diastolic murmur, rubs, systolic murmur GI/Abdominal exam: PRESENT: normal bowel sounds, soft. ABSENT: distended, guarding, mass, organolmegaly, rebound, tenderness Rectal exam: PRESENT: deferred Extremities exam: PRESENT: +1 edema Neurological exam: PRESENT: other - Sedated Skin exam: PRESENT: dry, intact, warm. ABSENT: cyanosis, rash Results Laboratory Results: 12/23/16 05:20 12/23/16 12:11 12/23/16 12/23/16 12/23/16 05:20 05:20 05:20 WBC 11.8 H RBC 3.25 L Hgb 9.9 L Hct 28.9 L MCV 89 MCH 30.5 MCHC 34.3 RDW 12.7 Plt Count 284 Seg Neutrophils % 80.4 H Lymphocytes % 5.2 L Monocytes % 13.2 H Eosinophils % 0.8 Basophils % 0.4 Absolute Neutrophils 9.5 H Absolute Lymphocytes 0.6 Absolute Monocytes 1.6 H Absolute Eosinophils 0.1 Absolute Basophils 0.1 Carbonic Acid 1.00 L HCO3/H2CO3 Ratio 23:1 ABG pH 7.47 H ABG pCO2 33.1 L ABG pO2 76.6 L ABG HCO3 23.4 ABG O2 Saturation 96.1 ABG Base Excess 0.1 FiO2 28% Sodium 129.2 L Potassium 3.0 L* Chloride 99 Carbon Dioxide 21 L Anion Gap 9 BUN 6 L Creatinine 0.62 Est GFR ( Amer) > 60 Est GFR (Non-Af Amer) > 60 Glucose 121 H Calcium 7.7 L Magnesium 1.6 Total Bilirubin 0.2 AST 24 ALT 30 Alkaline Phosphatase 52 Total Protein 4.0 L Albumin 2.0 L 12/23/16 12:11 WBC RBC Hgb Hct MCV MCH MCHC RDW Plt Count Seg Neutrophils % Lymphocytes % Monocytes % Eosinophils % Basophils % Absolute Neutrophils Absolute Lymphocytes Absolute Monocytes Absolute Eosinophils Absolute Basophils Carbonic Acid HCO3/H2CO3 Ratio ABG pH ABG pCO2 ABG pO2 ABG HCO3 ABG O2 Saturation ABG Base Excess FiO2 Sodium 129.7 L Potassium 3.5 L Chloride 100 Carbon Dioxide 23 Anion Gap 7 BUN 6 L Creatinine 0.53 Est GFR ( Amer) > 60 Est GFR (Non-Af Amer) > 60 Glucose 112 H Calcium 7.8 L Magnesium Total Bilirubin AST ALT Alkaline Phosphatase Total Protein Albumin 12/20/16 05:55 NT-Pro-B Natriuret Pep 490 Impressions: Acute Abdomen Series 12/18/16 16:33 IMPRESSION: NO RADIOGRAPHIC EVIDENCE FOR ACUTE ABDOMINAL DISEASE. Abdomen/Pelvis CT 12/18/16 18:45 IMPRESSION: 1. Bowel perforation. Free air and contrast within the abdomen. Based on the appearance, suspect proximal GI tract viscus perforation. Possibly duodenal or gastric ulcer or proximal small bowel. Pertinent findings on the imaging study reported as a CRITICAL RESULT to LUPE HERNANDEZ MD at21:54 on 12/18/2016. Category of Critical Result: Bowel perforation. Chest X-Ray 12/23/16 06:00 IMPRESSION: Improving edema or sepsis. No pneumothorax. Upper GI Series 12/23/16 08:00 IMPRESSION: No evidence of contrast extravasation at the site of the ulcer repair Assessment & Plan - Diagnosis (1) Acute perforated duodenal ulcer with hemorrhage Is this a current diagnosis for this admission?: YesPlan: Status post David patch repair of duodenal ulcer on 12/19/[address] Vera. (2) Acute respiratory failure following trauma and surgery Is this a current diagnosis for this admission?: YesPlan: Ventilator management per pulmonary medicine. (3) Alcohol abuse Is this a current diagnosis for this admission?: Yes (4) Anemia Qualifiers: Other causes of anemia: acute posthemorrhagic Is this a current diagnosis for this admission?: YesPlan: Hemoglobin is stable. (5) COPD (chronic obstructive pulmonary disease) Qualifiers: COPD type: unspecified COPD Qualified Code(s): J44.9 - Chronic obstructive pulmonary disease, unspecified Is this a current diagnosis for this admission?: YesPlan: Continue current Rx per pulmonary medicine. (6) DVT prophylaxis Is this a current diagnosis for this admission?: Yes (7) GI prophylaxis Is this a current diagnosis for this admission?: YesPlan: Continue famotidine 20 mg IV every 12 hours. (9) Hypoalbuminemia Is this a current diagnosis for this admission?: YesPlan: Start nutrition today. (10) Peritonitis (acute) generalized Is this a current diagnosis for this admission?: Yes (11) Pneumonia Is this a current diagnosis for this admission?: YesPlan: Continue antibiotics. (12) Tobacco abuse Is this a current diagnosis for this admission?: Yes (13) protein calorie malnourishment Is this a current diagnosis for this admission?: Yes - Time Time Spent with patient: 25-34 minutes
[2016-12-23] MEDS: ACETAMINOPHEN SOLN 325 MG/10.15 ML UDCUP NG PRN (16:45)
[2016-12-24] MEDS: IPRATROPIUM/ALBUTEROL 0.5-2.5 MG/3 ML AMPUL NEB SCH ×4 (02:09→20:31)
[2016-12-24] MEDS: VANCOMYCIN HCL 1,000 MG in DEXTROSE 5%-WATER 250 ML IV SCH ×3 (02:16→18:11)
[2016-12-24] MEDS: PIPERACILLIN SODIUM/TAZOBACTAM 3.375 GM in NORMAL SALINE 100 ML IV SCH ×4 (02:16→21:53)
[2016-12-24] MEDS: LORAZEPAM 24 MG/240 ML BAG IV PRN ×4 (02:35→16:57)
[2016-12-24] MEDS: PROPOFOL 100 ML IV PRN ×2 (06:23→12:16)
[2016-12-24 06:33] LABS: ARTERIAL BLOOD BASE EXCESS 1.6 mmol/L; ARTERIAL BLOOD O2 SATURATION 96.7 % (94-98)
[2016-12-24 06:42] LABS: ABSOLUTE EOSINOPHILS # (AUTO) 0.2 10^3/uL (0.0-0.6); ABSOLUTE LYMPHOCYTES (AUTO) 0.9 10^3/uL (0.5-4.7); ABSOLUTE MONOCYTES (AUTO) 1.2 10^3/uL (0.1-1.4); ABSOLUTE NEUT (AUTO) 7.7 10^3/uL (1.7-8.2); BASOPHILS % (AUTO) 0.4 % (0-2); EOSINOPHILS % (AUTO) 1.7 % (0-6); HEMATOCRIT 26.5 % (37.9-51.0); HEMOGLOBIN 9.1 g/dL (13.5-17.0); HGB HCT DIFFERENCE 0.8; LYMPHOCYTES % (AUTO) 8.6 % (13-45); MEAN CORPUSCULAR HEMOGLOBIN 30.7 pg (27.0-33.4); MEAN CORPUSCULAR HGB CONC 34.3 g/dL (32.0-36.0); MEAN CORPUSCULAR VOLUME 89 fl (80-97); MONOCYTES % (AUTO) 11.7 % (3-13); RED BLOOD COUNT 2.96 10^6/uL (4.35-5.55); RED CELL DISTRIBUTION WIDTH 13.3 % (11.5-14.0); SEGMENTED NEUTROPHILS % (AUTO) 77.6 % (42-78); WHITE BLOOD COUNT 9.9 10^3/uL (4.0-10.5)
[2016-12-24 06:47] LABS: ANION GAP 8 (5-19); BLOOD UREA NITROGEN 6 mg/dL (7-20); CALCIUM 7.8 mg/dL (8.4-10.2); CARBON DIOXIDE 24 mmol/L (22-30); CHLORIDE 100 mmol/L (98-107); CREATININE RESULT 0.58 mg/dL (0.52-1.25); GLUCOSE 121 mg/dL (75-110); MAGNESIUM 1.7 mg/dL (1.6-2.3); POTASSIUM 3.1 mmol/L (3.6-5.0); SODIUM 131.9 mmol/L (137-145)
--- NOTE | 2016-12-24 09:05 | PDOC PROGRESS REPORT ---
Subjective Progress Note for:: 12/24/16 Subjective:: Remains sedated on Propofol and Ativan drips, and on a ventilator. s/p perforated DU and surgery. UGI yesterday showd no extravasation. Tube feedings to start. Pulmonary medicine managing vent. Physical Exam Vital Signs: Temp Pulse Resp BP Pulse Ox 98.4 F 78 17 124/65 97 12/24/16 04:00 12/24/16 02:09 12/24/16 02:09 12/24/16 07:23 12/24/16 07:23 Intake & Output 12/23/16 12/24/16 12/25/16 06:59 06:59 06:59 Intake Total 5155 6048 Output Total 7580 5930 Balance -2425 118 Weight 60.1 kg 60.3 kg Additional comments: General appearance: PRESENT: no acute distress, other - Intubated, sedated, on the ventilator. Head exam: PRESENT: atraumatic, normocephalic Eye exam: ABSENT: scleral icterus Ear exam: PRESENT: normal external ear exam Neck exam: ABSENT: carotid bruit, JVD, lymphadenopathy, thyromegaly Respiratory exam: PRESENT: rhonchi Cardiovascular exam: PRESENT: RRR. ABSENT: diastolic murmur, rubs, systolic murmur GI/Abdominal exam: PRESENT: normal bowel sounds, soft. Wound clean/dry/intact. ABSENT: distended, guarding, mass, organolmegaly, rebound, tenderness Rectal exam: PRESENT: deferred Extremities exam: PRESENT: +1 edema Neurological exam: PRESENT: other - Sedated Skin exam: PRESENT: dry, intact, warm. ABSENT: cyanosis, rash Results Laboratory Results: 12/24/16 06:15 12/24/16 06:15 12/23/16 12/24/16 12/24/16 12:11 06:15 06:15 WBC RBC Hgb Hct MCV MCH MCHC RDW Plt Count Seg Neutrophils % Lymphocytes % Monocytes % Eosinophils % Basophils % Absolute Neutrophils Absolute Lymphocytes Absolute Monocytes Absolute Eosinophils Absolute Basophils Carbonic Acid 1.05 HCO3/H2CO3 Ratio 23:1 ABG pH 7.47 H ABG pCO2 34.8 L ABG pO2 80.9 ABG HCO3 25.0 ABG O2 Saturation 96.7 ABG Base Excess 1.6 FiO2 40% Sodium 129.7 L 131.9 L Potassium 3.5 L 3.1 L Chloride 100 100 Carbon Dioxide 23 24 Anion Gap 7 8 BUN 6 L 6 L Creatinine 0.53 0.58 Est GFR ( Amer) > 60 > 60 Est GFR (Non-Af Amer) > 60 > 60 Glucose 112 H 121 H Calcium 7.8 L 7.8 L Magnesium 1.7 12/24/16 06:15 WBC 9.9 RBC 2.96 L Hgb 9.1 L Hct 26.5 L MCV 89 MCH 30.7 MCHC 34.3 RDW 13.3 Plt Count 322 Seg Neutrophils % 77.6 Lymphocytes % 8.6 L Monocytes % 11.7 Eosinophils % 1.7 Basophils % 0.4 Absolute Neutrophils 7.7 Absolute Lymphocytes 0.9 Absolute Monocytes 1.2 Absolute Eosinophils 0.2 Absolute Basophils 0.0 Carbonic Acid HCO3/H2CO3 Ratio ABG pH ABG pCO2 ABG pO2 ABG HCO3 ABG O2 Saturation ABG Base Excess FiO2 Sodium Potassium Chloride Carbon Dioxide Anion Gap BUN Creatinine Est GFR ( Amer) Est GFR (Non-Af Amer) Glucose Calcium Magnesium 12/19/16 01:00 Blood Blood Culture - Final NO GROWTH IN 5 DAYS 12/20/16 05:55 NT-Pro-B Natriuret Pep 490 Impressions: Acute Abdomen Series 12/18/16 16:33 IMPRESSION: NO RADIOGRAPHIC EVIDENCE FOR ACUTE ABDOMINAL DISEASE. Abdomen/Pelvis CT 12/18/16 18:45 IMPRESSION: 1. Bowel perforation. Free air and contrast within the abdomen. Based on the appearance, suspect proximal GI tract viscus perforation. Possibly duodenal or gastric ulcer or proximal small bowel. Pertinent findings on the imaging study reported as a CRITICAL RESULT to LUPE HERNANDEZ MD at21:54 on 12/18/2016. Category of Critical Result: Bowel perforation. Upper GI Series 12/23/16 08:00 IMPRESSION: No evidence of contrast extravasation at the site of the ulcer repair Chest X-Ray 12/24/16 06:00 IMPRESSION: 1. Support tubes and lines as above. 2. Worsening though the left lung base opacification which could represent atelectasis/infiltrate with associated effusion. Are slightly increased densities in the right lung base which could represent atelectasis, and edema, or developing infiltrate. Pulmonary vascular congestion & interstitial edema. Assessment & Plan - Diagnosis (1) Acute perforated duodenal ulcer with hemorrhage Is this a current diagnosis for this admission?: YesPlan: Status post David patch repair of duodenal ulcer on 12/19/[address] Vera. (2) Acute respiratory failure following trauma and surgery Is this a current diagnosis for this admission?: YesPlan: Ventilator management per pulmonary medicine. (3) Alcohol abuse Is this a current diagnosis for this admission?: Yes (4) Anemia Qualifiers: Other causes of anemia: acute posthemorrhagic Is this a current diagnosis for this admission?: YesPlan: Hemoglobin is stable. (5) COPD (chronic obstructive pulmonary disease) Qualifiers: COPD type: unspecified COPD Qualified Code(s): J44.9 - Chronic obstructive pulmonary disease, unspecified Is this a current diagnosis for this admission?: YesPlan: Continue current Rx per pulmonary medicine. (6) DVT prophylaxis Is this a current diagnosis for this admission?: YesPlan: On no anticoagulant because of the recent UGI bleed. On SCD pumps. (7) GI prophylaxis Is this a current diagnosis for this admission?: YesPlan: Continue famotidine 20 mg IV every 12 hours. (8) Hypertension Plan: Controlled on current Rx. (9) Hypoalbuminemia Is this a current diagnosis for this admission?: YesPlan: To start tube feedings today. (10) Pneumonia Is this a current diagnosis for this admission?: YesPlan: 12/23/16 CXR improving. Continue antibiotics. (11) Tobacco abuse Is this a current diagnosis for this admission?: Yes (12) protein calorie malnourishment Is this a current diagnosis for this admission?: YesPlan: Tube feedings to start today. (13) GERD (gastroesophageal reflux disease) Plan: Noted on UGI 12/23/16. Will observe as tube feedings start. - Time Time Spent with patient: 25-34 minutes
[2016-12-24] MEDS: LEVOFLOXACIN 750 MG/D5W RTU 750 MG/150 ML RTUPB IV SCH (09:32)
[2016-12-24] MEDS: FUROSEMIDE INJ/PF 40 MG/4 ML SDV IV SCH ×2 (09:33→21:54)
[2016-12-24] MEDS: FAMOTIDINE INJ/PF 20 MG/2 ML SDV IV SCH ×2 (09:33→21:55)
[2016-12-24] MEDS: POTASSI CL 20 MEQ/50 ML RIDER 20 MEQ/50 ML RTUPB IV SCH ×2 (11:28→13:57)
[2016-12-24] MEDS: POTASSI CL 20 MEQ/D5NS 1L 1,000 ML IV PRN (14:20)
--- NOTE | 2016-12-24 17:52 | PDOC PROGRESS REPORT ---
Subjective Progress Note for:: 12/23/16 Subjective:: Intubated and sedated Physical Exam Vital Signs: Temp Pulse Resp BP Pulse Ox 98.1 F 80 28 H 140/75 H 98 12/23/16 07:59 12/23/16 08:00 12/23/16 08:00 12/23/16 07:59 12/23/16 08:30 Intake & Output 12/22/16 12/23/16 12/24/16 06:59 06:59 06:59 Intake Total 4929 5155 Output Total 5115 7580 135 Balance -127 -2425 -135 Weight 64.3 kg 60.1 kg General appearance: PRESENT: no acute distress, well-nourished Head exam: PRESENT: atraumatic, normocephalic Eye exam: PRESENT: conjunctiva pale Mouth exam: PRESENT: neck supple, tongue midline, other - ET tube in place Neck exam: PRESENT: carotid bruit Respiratory exam: PRESENT: decreased breath sounds, prolonged expiratory phas, rales, rhonchi, unlabored Cardiovascular exam: PRESENT: RRR, +S1, +S2 Pulses: PRESENT: normal radial pulses GI/Abdominal exam: ABSENT: normal bowel sounds, soft Rectal exam: PRESENT: other - s/p surgery Gentrourinary exam: ABSENT: indwelling catheter Extremities exam: PRESENT: +1 edema Musculoskeletal exam: ABSENT: normal inspection Skin exam: PRESENT: dry, warm Results Laboratory Results: 12/23/16 05:20 12/23/16 05:20 12/22/16 12/23/16 12/23/16 09:47 05:20 05:20 WBC RBC Hgb Hct MCV MCH MCHC RDW Plt Count Seg Neutrophils % Lymphocytes % Monocytes % Eosinophils % Basophils % Absolute Neutrophils Absolute Lymphocytes Absolute Monocytes Absolute Eosinophils Absolute Basophils Carbonic Acid 1.00 L HCO3/H2CO3 Ratio 23:1 ABG pH 7.47 H ABG pCO2 33.1 L ABG pO2 76.6 L ABG HCO3 23.4 ABG O2 Saturation 96.1 ABG Base Excess 0.1 FiO2 28% Sodium 129.2 L Potassium 3.0 L* Chloride 99 Carbon Dioxide 21 L Anion Gap 9 BUN 6 L Creatinine 0.62 Est GFR ( Amer) > 60 Est GFR (Non-Af Amer) > 60 Glucose 121 H Calcium 7.7 L Magnesium 1.6 Total Bilirubin 0.2 AST 24 ALT 30 Alkaline Phosphatase 52 Total Protein 4.0 L Albumin 1.5 L 2.0 L 12/23/16 05:20 WBC 11.8 H RBC 3.25 L Hgb 9.9 L Hct 28.9 L MCV 89 MCH 30.5 MCHC 34.3 RDW 12.7 Plt Count 284 Seg Neutrophils % 80.4 H Lymphocytes % 5.2 L Monocytes % 13.2 H Eosinophils % 0.8 Basophils % 0.4 Absolute Neutrophils 9.5 H Absolute Lymphocytes 0.6 Absolute Monocytes 1.6 H Absolute Eosinophils 0.1 Absolute Basophils 0.1 Carbonic Acid HCO3/H2CO3 Ratio ABG pH ABG pCO2 ABG pO2 ABG HCO3 ABG O2 Saturation ABG Base Excess FiO2 Sodium Potassium Chloride Carbon Dioxide Anion Gap BUN Creatinine Est GFR ( Amer) Est GFR (Non-Af Amer) Glucose Calcium Magnesium Total Bilirubin AST ALT Alkaline Phosphatase Total Protein Albumin 12/20/16 05:55 NT-Pro-B Natriuret Pep 490 Impressions: Acute Abdomen Series 12/18/16 16:33 IMPRESSION: NO RADIOGRAPHIC EVIDENCE FOR ACUTE ABDOMINAL DISEASE. Abdomen/Pelvis CT 12/18/16 18:45 IMPRESSION: 1. Bowel perforation. Free air and contrast within the abdomen. Based on the appearance, suspect proximal GI tract viscus perforation. Possibly duodenal or gastric ulcer or proximal small bowel. Pertinent findings on the imaging study reported as a CRITICAL RESULT to LUPE HERNANDEZ MD at21:54 on 12/18/2016. Category of Critical Result: Bowel perforation. Chest X-Ray 12/23/16 06:00 IMPRESSION: Improving edema or sepsis. No pneumothorax. Assessment & Plan - Diagnosis (1) Acute respiratory failure following trauma and surgery Is this a current diagnosis for this admission?: YesPlan: unchanged radiographicaly worse (2) COPD (chronic obstructive pulmonary disease) Qualifiers: COPD type: unspecified COPD Qualified Code(s): J44.9 - Chronic obstructive pulmonary disease, unspecified Is this a current diagnosis for this admission?: YesPlan: Continue current bronchodilator therapy (3) Hyponatremia Is this a current diagnosis for this admission?: NoPlan: Continues to improve (4) Hypocalcemia Is this a current diagnosis for this admission?: No (5) Hypoalbuminemia Is this a current diagnosis for this admission?: YesPlan: Status post albumin infusion (6) Septic shock Is this a current diagnosis for this admission?: NoPlan: not requiring vasopressor
--- NOTE | 2016-12-24 17:59 | PDOC PROGRESS REPORT ---
Subjective Progress Note for:: 12/24/16 Subjective:: Intubated and sedated Physical Exam Vital Signs: Temp Pulse Resp BP Pulse Ox 98.0 F 80 17 139/72 H 100 12/24/16 08:00 12/24/16 08:00 12/24/16 08:00 12/24/16 08:00 12/24/16 08:00 Intake & Output 12/23/16 12/24/16 12/25/16 06:59 06:59 06:59 Intake Total 5155 6048 Output Total 7580 5930 150 Balance -2425 118 -150 Weight 60.1 kg 60.3 kg General appearance: PRESENT: well-developed, well-nourished Head exam: PRESENT: atraumatic, normocephalic Eye exam: PRESENT: conjunctiva pale Mouth exam: PRESENT: moist, neck supple, tongue midline, other - ET tube in place Respiratory exam: PRESENT: crackles, decreased breath sounds, prolonged expiratory phas, unlabored Cardiovascular exam: PRESENT: RRR, +S1, +S2 Pulses: PRESENT: normal radial pulses GI/Abdominal exam: PRESENT: other Rectal exam: PRESENT: deferred Gentrourinary exam: PRESENT: indwelling catheter Extremities exam: PRESENT: +1 edema Musculoskeletal exam: PRESENT: normal inspection - sp surgery Skin exam: PRESENT: dry, intact, warm Results Laboratory Results: 12/24/16 06:15 12/24/16 06:15 12/23/16 12/24/16 12/24/16 12:11 06:15 06:15 WBC RBC Hgb Hct MCV MCH MCHC RDW Plt Count Seg Neutrophils % Lymphocytes % Monocytes % Eosinophils % Basophils % Absolute Neutrophils Absolute Lymphocytes Absolute Monocytes Absolute Eosinophils Absolute Basophils Carbonic Acid 1.05 HCO3/H2CO3 Ratio 23:1 ABG pH 7.47 H ABG pCO2 34.8 L ABG pO2 80.9 ABG HCO3 25.0 ABG O2 Saturation 96.7 ABG Base Excess 1.6 FiO2 40% Sodium 129.7 L 131.9 L Potassium 3.5 L 3.1 L Chloride 100 100 Carbon Dioxide 23 24 Anion Gap 7 8 BUN 6 L 6 L Creatinine 0.53 0.58 Est GFR ( Amer) > 60 > 60 Est GFR (Non-Af Amer) > 60 > 60 Glucose 112 H 121 H Calcium 7.8 L 7.8 L Magnesium 1.7 12/24/16 06:15 WBC 9.9 RBC 2.96 L Hgb 9.1 L Hct 26.5 L MCV 89 MCH 30.7 MCHC 34.3 RDW 13.3 Plt Count 322 Seg Neutrophils % 77.6 Lymphocytes % 8.6 L Monocytes % 11.7 Eosinophils % 1.7 Basophils % 0.4 Absolute Neutrophils 7.7 Absolute Lymphocytes 0.9 Absolute Monocytes 1.2 Absolute Eosinophils 0.2 Absolute Basophils 0.0 Carbonic Acid HCO3/H2CO3 Ratio ABG pH ABG pCO2 ABG pO2 ABG HCO3 ABG O2 Saturation ABG Base Excess FiO2 Sodium Potassium Chloride Carbon Dioxide Anion Gap BUN Creatinine Est GFR ( Amer) Est GFR (Non-Af Amer) Glucose Calcium Magnesium 12/19/16 01:00 Blood Blood Culture - Final NO GROWTH IN 5 DAYS 12/20/16 05:55 NT-Pro-B Natriuret Pep 490 Impressions: Acute Abdomen Series 12/18/16 16:33 IMPRESSION: NO RADIOGRAPHIC EVIDENCE FOR ACUTE ABDOMINAL DISEASE. Abdomen/Pelvis CT 12/18/16 18:45 IMPRESSION: 1. Bowel perforation. Free air and contrast within the abdomen. Based on the appearance, suspect proximal GI tract viscus perforation. Possibly duodenal or gastric ulcer or proximal small bowel. Pertinent findings on the imaging study reported as a CRITICAL RESULT to LUPE HERNANDEZ MD at21:54 on 12/18/2016. Category of Critical Result: Bowel perforation. Upper GI Series 12/23/16 08:00 IMPRESSION: No evidence of contrast extravasation at the site of the ulcer repair Chest X-Ray 12/24/16 06:00 IMPRESSION: 1. Support tubes and lines as above. 2. Worsening though the left lung base opacification which could represent atelectasis/infiltrate with associated effusion. Are slightly increased densities in the right lung base which could represent atelectasis, and edema, or developing infiltrate. Pulmonary vascular congestion & interstitial edema. Assessment & Plan - Diagnosis (1) Acute respiratory failure following trauma and surgery Is this a current diagnosis for this admission?: YesPlan: cxr improved rr,min vol,fio2 (2) COPD (chronic obstructive pulmonary disease) Qualifiers: COPD type: unspecified COPD Qualified Code(s): J44.9 - Chronic obstructive pulmonary disease, unspecified Is this a current diagnosis for this admission?: Yes (3) Hyponatremia Is this a current diagnosis for this admission?: Yes (4) Hypocalcemia Is this a current diagnosis for this admission?: Yes (5) Hypoalbuminemia Is this a current diagnosis for this admission?: Yes (6) Septic shock Is this a current diagnosis for this admission?: No - Time Critical Time spent with patient: 25-34 minutes
[2016-12-25] MEDS: PROPOFOL 100 ML IV PRN ×2 (00:48→16:09)
[2016-12-25] MEDS: LORAZEPAM 24 MG/240 ML BAG IV PRN ×3 (00:49→18:47)
[2016-12-25] MEDS: IPRATROPIUM/ALBUTEROL 0.5-2.5 MG/3 ML AMPUL NEB SCH ×4 (02:02→20:29)
[2016-12-25] MEDS: VANCOMYCIN HCL 1,000 MG in DEXTROSE 5%-WATER 250 ML IV SCH ×3 (02:28→17:18)
[2016-12-25] MEDS: PIPERACILLIN SODIUM/TAZOBACTAM 3.375 GM in NORMAL SALINE 100 ML IV SCH ×4 (02:28→21:26)
[2016-12-25] MEDS: NORMAL SALINE 1000 ML 1,000 ML with POTASSIUM CHLORIDE 20 MEQ, MAGNESIUM SULFATE 8 MEQ,... IV PRN ×5 (03:48)
[2016-12-25 06:37] LABS: ARTERIAL BLOOD BASE EXCESS 3.3 mmol/L; ARTERIAL BLOOD O2 SATURATION 95.6 % (94-98)
[2016-12-25 06:42] LABS: ABSOLUTE BASOPHILS # (AUTO) 0.1 10^3/uL (0.0-0.2); ABSOLUTE EOSINOPHILS # (AUTO) 0.3 10^3/uL (0.0-0.6); ABSOLUTE LYMPHOCYTES (AUTO) 0.9 10^3/uL (0.5-4.7); ABSOLUTE MONOCYTES (AUTO) 1.1 10^3/uL (0.1-1.4); ABSOLUTE NEUT (AUTO) 9.2 10^3/uL (1.7-8.2); BASOPHILS % (AUTO) 0.8 % (0-2); EOSINOPHILS % (AUTO) 2.5 % (0-6); HEMATOCRIT 28.1 % (37.9-51.0); HEMOGLOBIN 9.7 g/dL (13.5-17.0); LYMPHOCYTES % (AUTO) 7.5 % (13-45); MEAN CORPUSCULAR HEMOGLOBIN 30.4 pg (27.0-33.4); MEAN CORPUSCULAR HGB CONC 34.5 g/dL (32.0-36.0); MEAN CORPUSCULAR VOLUME 88 fl (80-97); MONOCYTES % (AUTO) 9.5 % (3-13); RED BLOOD COUNT 3.18 10^6/uL (4.35-5.55); RED CELL DISTRIBUTION WIDTH 13.2 % (11.5-14.0); SEGMENTED NEUTROPHILS % (AUTO) 79.7 % (42-78); WHITE BLOOD COUNT 11.5 10^3/uL (4.0-10.5)
[2016-12-25 06:57] LABS: ANION GAP 9 (5-19); BLOOD UREA NITROGEN 9 mg/dL (7-20); CALCIUM 8.2 mg/dL (8.4-10.2); CARBON DIOXIDE 26 mmol/L (22-30); CHLORIDE 98 mmol/L (98-107); CREATININE RESULT 0.87 mg/dL (0.52-1.25); GLUCOSE 102 mg/dL (75-110); POTASSIUM 3.2 mmol/L (3.6-5.0); SODIUM 133.2 mmol/L (137-145)
[2016-12-25 07:18] LABS: MAGNESIUM 1.6 mg/dL (1.6-2.3); PHOSPHORUS 4.3 mg/dL (2.5-4.5)
[2016-12-25] MEDS: LEVOFLOXACIN 750 MG/D5W RTU 750 MG/150 ML RTUPB IV SCH (07:57)
--- NOTE | 2016-12-25 09:02 | PDOC PROGRESS REPORT ---
Subjective Progress Note for:: 12/25/16 Subjective:: Remains sedated on Propofol and Ativan drips, and on a ventilator. s/p perforated DU and surgery. Tube feedings started. Pulmonary medicine managing vent. Physical Exam Vital Signs: Temp Pulse Resp BP Pulse Ox 97.4 F 77 18 149/76 H 95 12/25/16 04:00 12/25/16 02:02 12/25/16 02:02 12/25/16 06:39 12/25/16 06:45 Intake & Output 12/24/16 12/25/16 12/26/16 06:59 06:59 06:59 Intake Total 6048 5529 Output Total 5930 5370 Balance 118 159 Weight 60.3 kg 59 kg Additional comments: General appearance: PRESENT: no acute distress, other - Intubated, sedated, on the ventilator. Head exam: PRESENT: atraumatic, normocephalic Eye exam: ABSENT: scleral icterus Ear exam: PRESENT: normal external ear exam Neck exam: ABSENT: carotid bruit, JVD, lymphadenopathy, thyromegaly Respiratory exam: PRESENT: rhonchi Cardiovascular exam: PRESENT: RRR. ABSENT: diastolic murmur, rubs, systolic murmur GI/Abdominal exam: PRESENT: normal bowel sounds, soft. Wound clean/dry/intact. ABSENT: distended, guarding, mass, organolmegaly, rebound, tenderness Rectal exam: PRESENT: deferred Extremities exam: PRESENT: trace edema Neurological exam: PRESENT: other - Sedated Skin exam: PRESENT: dry, intact, warm. ABSENT: cyanosis, rash Results Laboratory Results: 12/25/16 06:20 12/25/16 06:20 12/25/16 12/25/16 12/25/16 06:20 06:20 06:20 WBC 11.5 H RBC 3.18 L Hgb 9.7 L Hct 28.1 L MCV 88 MCH 30.4 MCHC 34.5 RDW 13.2 Plt Count 412 Seg Neutrophils % 79.7 H Lymphocytes % 7.5 L Monocytes % 9.5 Eosinophils % 2.5 Basophils % 0.8 Absolute Neutrophils 9.2 H Absolute Lymphocytes 0.9 Absolute Monocytes 1.1 Absolute Eosinophils 0.3 Absolute Basophils 0.1 Carbonic Acid 1.05 HCO3/H2CO3 Ratio 25:1 ABG pH 7.50 H ABG pCO2 34.9 L ABG pO2 71.1 L ABG HCO3 26.5 H ABG O2 Saturation 95.6 ABG Base Excess 3.3 FiO2 25% Sodium 133.2 L Potassium 3.2 L Chloride 98 Carbon Dioxide 26 Anion Gap 9 BUN 9 Creatinine 0.87 Est GFR ( Amer) > 60 Est GFR (Non-Af Amer) > 60 Glucose 102 Calcium 8.2 L Phosphorus Magnesium Triglycerides 12/25/16 06:20 WBC RBC Hgb Hct MCV MCH MCHC RDW Plt Count Seg Neutrophils % Lymphocytes % Monocytes % Eosinophils % Basophils % Absolute Neutrophils Absolute Lymphocytes Absolute Monocytes Absolute Eosinophils Absolute Basophils Carbonic Acid HCO3/H2CO3 Ratio ABG pH ABG pCO2 ABG pO2 ABG HCO3 ABG O2 Saturation ABG Base Excess FiO2 Sodium Potassium Chloride Carbon Dioxide Anion Gap BUN Creatinine Est GFR ( Amer) Est GFR (Non-Af Amer) Glucose Calcium Phosphorus 4.3 Magnesium 1.6 Triglycerides 68 12/22/16 08:12 Tracheal Aspirate Gram Stain - Final 12/22/16 08:12 Tracheal Aspirate Sputum Culture - Final NO GROWTH 2 DAYS 12/22/16 08:17 Alvarado Catheter Urine Culture - Final NO GROWTH 2 DAYS 12/20/16 05:55 NT-Pro-B Natriuret Pep 490 Impressions: Acute Abdomen Series 12/18/16 16:33 IMPRESSION: NO RADIOGRAPHIC EVIDENCE FOR ACUTE ABDOMINAL DISEASE. Abdomen/Pelvis CT 12/18/16 18:45 IMPRESSION: 1. Bowel perforation. Free air and contrast within the abdomen. Based on the appearance, suspect proximal GI tract viscus perforation. Possibly duodenal or gastric ulcer or proximal small bowel. Pertinent findings on the imaging study reported as a CRITICAL RESULT to LUPE HERNANDEZ MD at21:54 on 12/18/2016. Category of Critical Result: Bowel perforation. Upper GI Series 12/23/16 08:00 IMPRESSION: No evidence of contrast extravasation at the site of the ulcer repair Chest X-Ray 12/25/16 06:00 IMPRESSION: 1. Support tubes and lines as above 2. Pulmonary vascular distention interstitial prominence, similar to the prior study. Persistent left lung base opacity likely representing atelectasis/ infiltrate with associated effusion Assessment & Plan - Diagnosis (1) Acute perforated duodenal ulcer with hemorrhage Is this a current diagnosis for this admission?: YesPlan: Status post David patch repair of duodenal ulcer on 12/19/[address] Vera. (2) Anemia Qualifiers: Other causes of anemia: acute posthemorrhagic Is this a current diagnosis for this admission?: YesPlan: Hemoglobin is stable. (3) Acute respiratory failure following trauma and surgery Is this a current diagnosis for this admission?: YesPlan: Ventilator management per pulmonary medicine. (4) Pneumonia Is this a current diagnosis for this admission?: YesPlan: 12/23/16 CXR unchanged. Continue antibiotics. (5) COPD (chronic obstructive pulmonary disease) Qualifiers: COPD type: unspecified COPD Qualified Code(s): J44.9 - Chronic obstructive pulmonary disease, unspecified Is this a current diagnosis for this admission?: YesPlan: Continue current Rx per pulmonary medicine. (6) Hypertension Plan: Acceptable control on current Rx. (7) protein calorie malnourishment Is this a current diagnosis for this admission?: YesPlan: Tube feedings in progress. (8) GERD (gastroesophageal reflux disease) Plan: Noted on UGI 12/23/16. Will observe on tube feedings. (9) Alcohol abuse Is this a current diagnosis for this admission?: Yes (10) Tobacco abuse Is this a current diagnosis for this admission?: Yes (11) DVT prophylaxis Is this a current diagnosis for this admission?: YesPlan: On no anticoagulant because of the recent UGI bleed. On SCDs bilateral LEs. (12) GI prophylaxis Is this a current diagnosis for this admission?: YesPlan: Continue famotidine 20 mg IV every 12 hours. - Time Time Spent with patient: 15-24 minutes
[2016-12-25] MEDS: FUROSEMIDE INJ/PF 40 MG/4 ML SDV IV SCH ×2 (09:40→21:26)
[2016-12-25] MEDS: FAMOTIDINE INJ/PF 20 MG/2 ML SDV IV SCH ×2 (09:41→21:26)
[2016-12-25] MEDS: POTASSI CL 20 MEQ/50 ML RIDER 20 MEQ/50 ML RTUPB IV SCH ×2 (11:06→13:14)
--- NOTE | 2016-12-25 14:13 | PDOC PROGRESS REPORT ---
Subjective Progress Note for:: 12/25/16 Subjective:: on vent Physical Exam Vital Signs: Temp Pulse Resp BP Pulse Ox 98.2 F 86 18 144/75 H 95 12/25/16 08:00 12/25/16 10:00 12/25/16 10:00 12/25/16 13:39 12/25/16 14:00 Intake & Output 12/24/16 12/25/16 12/26/16 06:59 06:59 06:59 Intake Total 6048 5529 Output Total 5975 5325 925 Balance 118 159 -925 Weight 60.3 kg 59 kg GI/Abdominal exam: PRESENT: other - soft abdomen KAREN Serous Wound is clean. Results Laboratory Results: 12/25/16 06:20 12/25/16 06:20 12/25/16 12/25/16 12/25/16 06:20 06:20 06:20 WBC 11.5 H RBC 3.18 L Hgb 9.7 L Hct 28.1 L MCV 88 MCH 30.4 MCHC 34.5 RDW 13.2 Plt Count 412 Seg Neutrophils % 79.7 H Lymphocytes % 7.5 L Monocytes % 9.5 Eosinophils % 2.5 Basophils % 0.8 Absolute Neutrophils 9.2 H Absolute Lymphocytes 0.9 Absolute Monocytes 1.1 Absolute Eosinophils 0.3 Absolute Basophils 0.1 Carbonic Acid 1.05 HCO3/H2CO3 Ratio 25:1 ABG pH 7.50 H ABG pCO2 34.9 L ABG pO2 71.1 L ABG HCO3 26.5 H ABG O2 Saturation 95.6 ABG Base Excess 3.3 FiO2 25% Sodium 133.2 L Potassium 3.2 L Chloride 98 Carbon Dioxide 26 Anion Gap 9 BUN 9 Creatinine 0.87 Est GFR ( Amer) > 60 Est GFR (Non-Af Amer) > 60 Glucose 102 Calcium 8.2 L Phosphorus Magnesium Triglycerides 12/25/16 06:20 WBC RBC Hgb Hct MCV MCH MCHC RDW Plt Count Seg Neutrophils % Lymphocytes % Monocytes % Eosinophils % Basophils % Absolute Neutrophils Absolute Lymphocytes Absolute Monocytes Absolute Eosinophils Absolute Basophils Carbonic Acid HCO3/H2CO3 Ratio ABG pH ABG pCO2 ABG pO2 ABG HCO3 ABG O2 Saturation ABG Base Excess FiO2 Sodium Potassium Chloride Carbon Dioxide Anion Gap BUN Creatinine Est GFR ( Amer) Est GFR (Non-Af Amer) Glucose Calcium Phosphorus 4.3 Magnesium 1.6 Triglycerides 68 02/23/17 08:12 Tracheal Aspirate Gram Stain - Final 12/22/16 08:12 Tracheal Aspirate Sputum Culture - Final NO GROWTH 2 DAYS 12/22/16 08:17 Alvarado Catheter Urine Culture - Final NO GROWTH 2 DAYS 12/20/16 05:55 NT-Pro-B Natriuret Pep 490 Impressions: Acute Abdomen Series 12/18/16 16:33 IMPRESSION: NO RADIOGRAPHIC EVIDENCE FOR ACUTE ABDOMINAL DISEASE. Abdomen/Pelvis CT 12/18/16 18:45 IMPRESSION: 1. Bowel perforation. Free air and contrast within the abdomen. Based on the appearance, suspect proximal GI tract viscus perforation. Possibly duodenal or gastric ulcer or proximal small bowel. Pertinent findings on the imaging study reported as a CRITICAL RESULT to LUPE HERNANDEZ MD at21:54 on 12/18/2016. Category of Critical Result: Bowel perforation. Upper GI Series 12/23/16 08:00 IMPRESSION: No evidence of contrast extravasation at the site of the ulcer repair Chest X-Ray 12/25/16 06:00 IMPRESSION: 1. Support tubes and lines as above 2. Pulmonary vascular distention interstitial prominence, similar to the prior study. Persistent left lung base opacity likely representing atelectasis/ infiltrate with associated effusion Assessment & Plan - Plan Summary Plan Summary: [facility]
[2016-12-25] MEDS: POTASSI CL 20 MEQ/D5NS 1L 1,000 ML IV PRN (17:23)
[2016-12-26] MEDS: VANCOMYCIN HCL 1,000 MG in DEXTROSE 5%-WATER 250 ML IV SCH ×3 (01:20→17:11)
[2016-12-26] MEDS: IPRATROPIUM/ALBUTEROL 0.5-2.5 MG/3 ML AMPUL NEB SCH ×4 (02:19→20:02)
[2016-12-26] MEDS: PIPERACILLIN SODIUM/TAZOBACTAM 3.375 GM in NORMAL SALINE 100 ML IV SCH ×4 (04:21→21:39)
[2016-12-26] MEDS: PROPOFOL 100 ML IV PRN ×2 (04:38→17:12)
[2016-12-26] MEDS: POTASSI CL 20 MEQ/D5NS 1L 1,000 ML IV PRN ×2 (04:38→15:45)
[2016-12-26] MEDS: LORAZEPAM 24 MG/240 ML BAG IV PRN (04:44)
[2016-12-26 06:05] LABS: ARTERIAL BLOOD BASE EXCESS 2.6 mmol/L; ARTERIAL BLOOD O2 SATURATION 96.4 % (94-98)
[2016-12-26 06:23] LABS: ANION GAP 9 (5-19); BLOOD UREA NITROGEN 11 mg/dL (7-20); CALCIUM 8.4 mg/dL (8.4-10.2); CARBON DIOXIDE 26 mmol/L (22-30); CHLORIDE 99 mmol/L (98-107); CREATININE RESULT 0.99 mg/dL (0.52-1.25); GLUCOSE 134 mg/dL (75-110); POTASSIUM 3.4 mmol/L (3.6-5.0); SODIUM 133.8 mmol/L (137-145)
[2016-12-26 06:29] LABS: ABSOLUTE BASOPHILS # (AUTO) 0.1 10^3/uL (0.0-0.2); ABSOLUTE EOSINOPHILS # (AUTO) 0.3 10^3/uL (0.0-0.6); ABSOLUTE LYMPHOCYTES (AUTO) 0.9 10^3/uL (0.5-4.7); ABSOLUTE MONOCYTES (AUTO) 0.8 10^3/uL (0.1-1.4); ABSOLUTE NEUT (AUTO) 9.6 10^3/uL (1.7-8.2); BASOPHILS % (AUTO) 0.8 % (0-2); EOSINOPHILS % (AUTO) 2.5 % (0-6); HEMOGLOBIN 9.1 g/dL (13.5-17.0); HGB HCT DIFFERENCE 0.3; LYMPHOCYTES % (AUTO) 7.4 % (13-45); MEAN CORPUSCULAR HEMOGLOBIN 29.9 pg (27.0-33.4); MEAN CORPUSCULAR HGB CONC 33.8 g/dL (32.0-36.0); MEAN CORPUSCULAR VOLUME 89 fl (80-97); MONOCYTES % (AUTO) 7.2 % (3-13); RED BLOOD COUNT 3.05 10^6/uL (4.35-5.55); RED CELL DISTRIBUTION WIDTH 13.3 % (11.5-14.0); SEGMENTED NEUTROPHILS % (AUTO) 82.1 % (42-78); WHITE BLOOD COUNT 11.7 10^3/uL (4.0-10.5)
[2016-12-26] MEDS: FENTANYL CITRATE INJ/PF 100 MCG/2 ML AMPUL IV PRN ×2 (06:52→08:37)
[2016-12-26] MEDS ORDERED: POTASSIUM CHLORIDE 20 MEQ/15 ML UDCUP PO ONE (08:15)
[2016-12-26] MEDS: LEVOFLOXACIN 750 MG/D5W RTU 750 MG/150 ML RTUPB IV SCH (08:37)
[2016-12-26] MEDS: FAMOTIDINE INJ/PF 20 MG/2 ML SDV IV SCH ×2 (08:39→21:40)
--- NOTE | 2016-12-26 08:48 | PDOC PROGRESS REPORT ---
Subjective Progress Note for:: 12/26/16 Subjective:: Propofol and Ativan drips are currently off, on a sedation vacation for a ventilator PSV trial. S/p perforated DU and surgery. Tolerating tube feedings. Pulmonary medicine managing vent. Reviewed today with the daughter who is at the bedside. Physical Exam Vital Signs: Temp Pulse Resp BP Pulse Ox 97.7 F 75 14 170/83 H 95 12/26/16 07:51 12/26/16 07:51 12/26/16 07:51 12/26/16 07:51 12/26/16 07:51 Intake & Output 12/25/16 12/26/16 12/27/16 06:59 06:59 06:59 Intake Total 5529 4522 Output Total 5370 4665 300 Balance 159 -143 -300 Weight 59 kg 57.7 kg Additional comments: General appearance: PRESENT: no acute distress, other - Intubated, awake but drowsy, on sedation vacation, on the ventilator. Head exam: PRESENT: atraumatic, normocephalic Eye exam: ABSENT: scleral icterus Ear exam: PRESENT: normal external ear exam Neck exam: ABSENT: carotid bruit, JVD, lymphadenopathy, thyromegaly Respiratory exam: slightly coarse breath sounds, good air movement Cardiovascular exam: PRESENT: RRR. ABSENT: diastolic murmur, rubs, systolic murmur GI/Abdominal exam: PRESENT: normal bowel sounds, slightly distended but soft. Wound clean/dry/intact. ABSENT: guarding, mass, organolmegaly, rebound, tenderness Rectal exam: PRESENT: deferred Extremities exam: PRESENT: trace edema Neurological exam: PRESENT: other - Sedated Skin exam: PRESENT: dry, intact, warm. ABSENT: cyanosis, rash Results Laboratory Results: 12/26/16 05:35 12/26/16 05:35 12/26/16 12/26/16 12/26/16 05:35 05:35 05:35 WBC 11.7 H RBC 3.05 L Hgb 9.1 L Hct 27.0 L MCV 89 MCH 29.9 MCHC 33.8 RDW 13.3 Plt Count 466 H Seg Neutrophils % 82.1 H Lymphocytes % 7.4 L Monocytes % 7.2 Eosinophils % 2.5 Basophils % 0.8 Absolute Neutrophils 9.6 H Absolute Lymphocytes 0.9 Absolute Monocytes 0.8 Absolute Eosinophils 0.3 Absolute Basophils 0.1 Carbonic Acid 1.06 HCO3/H2CO3 Ratio 24:1 ABG pH 7.49 H ABG pCO2 35.1 ABG pO2 77.9 L ABG HCO3 26.0 ABG O2 Saturation 96.4 ABG Base Excess 2.6 FiO2 21% Sodium 133.8 L Potassium 3.4 L Chloride 99 Carbon Dioxide 26 Anion Gap 9 BUN 11 Creatinine 0.99 Est GFR ( Amer) > 60 Est GFR (Non-Af Amer) > 60 Glucose 134 H Calcium 8.4 12/20/16 05:55 NT-Pro-B Natriuret Pep 490 Impressions: Acute Abdomen Series 12/18/16 16:33 IMPRESSION: NO RADIOGRAPHIC EVIDENCE FOR ACUTE ABDOMINAL DISEASE. Abdomen/Pelvis CT 12/18/16 18:45 IMPRESSION: 1. Bowel perforation. Free air and contrast within the abdomen. Based on the appearance, suspect proximal GI tract viscus perforation. Possibly duodenal or gastric ulcer or proximal small bowel. Pertinent findings on the imaging study reported as a CRITICAL RESULT to LUPE HERNANDEZ MD at21:54 on 12/18/2016. Category of Critical Result: Bowel perforation. Upper GI Series 12/23/16 08:00 IMPRESSION: No evidence of contrast extravasation at the site of the ulcer repair Chest X-Ray 12/25/16 06:00 IMPRESSION: 1. Support tubes and lines as above 2. Pulmonary vascular distention interstitial prominence, similar to the prior study. Persistent left lung base opacity likely representing atelectasis/ infiltrate with associated effusion Assessment & Plan - Diagnosis (1) Acute perforated duodenal ulcer with hemorrhage Is this a current diagnosis for this admission?: YesPlan: Status post David patch repair of duodenal ulcer on 12/19/[address] Vera. (2) Anemia Qualifiers: Other causes of anemia: acute posthemorrhagic Is this a current diagnosis for this admission?: YesPlan: Hemoglobin is stable. (3) Acute respiratory failure following trauma and surgery Is this a current diagnosis for this admission?: YesPlan: On a sedation vacation for PSV trial. Pulmonary medicine managing the ventilator. (4) Pneumonia Is this a current diagnosis for this admission?: YesPlan: 12/23/16 CXR unchanged. Continue antibiotics. (5) COPD (chronic obstructive pulmonary disease) Qualifiers: COPD type: unspecified COPD Qualified Code(s): J44.9 - Chronic obstructive pulmonary disease, unspecified Is this a current diagnosis for this admission?: YesPlan: Continue current Rx per pulmonary medicine. (6) Hypertension Plan: Acceptable control on current Rx. (7) protein calorie malnourishment Is this a current diagnosis for this admission?: YesPlan: Tube feedings in progress. Tolerating well. Had BMs. (8) Hypokalemia Is this a current diagnosis for this admission?: YesPlan: Potassium replacement ordered. We'll monitor. (9) GERD (gastroesophageal reflux disease) Is this a current diagnosis for this admission?: YesPlan: Noted on UGI 12/23/16. Will observe on tube feedings. (10) Alcohol abuse Is this a current diagnosis for this admission?: Yes (11) Tobacco abuse Is this a current diagnosis for this admission?: Yes (12) DVT prophylaxis Is this a current diagnosis for this admission?: YesPlan: On no anticoagulant because of the recent UGI bleed. On SCDs to bilateral LEs. (13) GI prophylaxis Is this a current diagnosis for this admission?: YesPlan: Continue famotidine 20 mg IV every 12 hours. - Time Time Spent with patient: 25-34 minutes
--- NOTE | 2016-12-26 10:10 | PDOC PROGRESS REPORT ---
Subjective Subjective:: Tolerating tube feeds. + BM. Still intubated. Physical Exam Vital Signs: Temp Pulse Resp BP Pulse Ox 97.7 F 75 14 170/83 H 95 12/26/16 07:51 12/26/16 07:51 12/26/16 07:51 12/26/16 07:51 12/26/16 07:51 Intake & Output 12/25/16 12/26/16 12/27/16 06:59 06:59 06:59 Intake Total 5529 4522 Output Total 5376 0265 300 Balance 159 -143 -300 Weight 59 kg 57.7 kg General appearance: PRESENT: other - Intubated, sedated, NG tube in place. Head exam: PRESENT: normocephalic GI/Abdominal exam: PRESENT: distended - Mild distention versus baseline., soft, other - KAREN full with serous fluid. KAREN was emptied.. ABSENT: tenderness Neurological exam: PRESENT: other - Intubated, sedated. Skin exam: ABSENT: jaundice Results Laboratory Results: 12/26/16 05:35 12/26/16 05:35 12/26/16 12/26/16 12/26/16 05:35 05:35 05:35 WBC 11.7 H RBC 3.05 L Hgb 9.1 L Hct 27.0 L MCV 89 MCH 29.9 MCHC 33.8 RDW 13.3 Plt Count 466 H Seg Neutrophils % 82.1 H Lymphocytes % 7.4 L Monocytes % 7.2 Eosinophils % 2.5 Basophils % 0.8 Absolute Neutrophils 9.6 H Absolute Lymphocytes 0.9 Absolute Monocytes 0.8 Absolute Eosinophils 0.3 Absolute Basophils 0.1 Carbonic Acid 1.06 HCO3/H2CO3 Ratio 24:1 ABG pH 7.49 H ABG pCO2 35.1 ABG pO2 77.9 L ABG HCO3 26.0 ABG O2 Saturation 96.4 ABG Base Excess 2.6 FiO2 21% Sodium 133.8 L Potassium 3.4 L Chloride 99 Carbon Dioxide 26 Anion Gap 9 BUN 11 Creatinine 0.99 Est GFR ( Amer) > 60 Est GFR (Non-Af Amer) > 60 Glucose 134 H Calcium 8.4 12/20/16 05:55 NT-Pro-B Natriuret Pep 490 Impressions: Acute Abdomen Series 12/18/16 16:33 IMPRESSION: NO RADIOGRAPHIC EVIDENCE FOR ACUTE ABDOMINAL DISEASE. Abdomen/Pelvis CT 12/18/16 18:45 IMPRESSION: 1. Bowel perforation. Free air and contrast within the abdomen. Based on the appearance, suspect proximal GI tract viscus perforation. Possibly duodenal or gastric ulcer or proximal small bowel. Pertinent findings on the imaging study reported as a CRITICAL RESULT to LUPE HERNANDEZ MD at21:54 on 12/18/2016. Category of Critical Result: Bowel perforation. Upper GI Series 12/23/16 08:00 IMPRESSION: No evidence of contrast extravasation at the site of the ulcer repair Chest X-Ray 12/25/16 06:00 IMPRESSION: 1. Support tubes and lines as above 2. Pulmonary vascular distention interstitial prominence, similar to the prior study. Persistent left lung base opacity likely representing atelectasis/ infiltrate with associated effusion Assessment & Plan - Diagnosis (1) Acute perforated duodenal ulcer with hemorrhage Is this a current diagnosis for this admission?: YesPlan: Doing well from a surgery standpoint. Swallow study was done to 3 days ago which was negative for leak. KAREN drain still has high-volume output; the fluid benign-appearing serous. He is tolerating tube feeds and having bowel function. Anticipate extubation in the next 24 hours. (2) Alcohol abuse Is this a current diagnosis for this admission?: Yes (3) COPD (chronic obstructive pulmonary disease) Qualifiers: COPD type: unspecified COPD Qualified Code(s): J44.9 - Chronic obstructive pulmonary disease, unspecified Is this a current diagnosis for this admission?: Yes (4) DVT prophylaxis Is this a current diagnosis for this admission?: Yes (5) Smoker Is this a current diagnosis for this admission?: Yes
[2016-12-26] MEDS: FUROSEMIDE INJ/PF 40 MG/4 ML SDV IV SCH ×2 (11:14→21:39)
[2016-12-26] MEDS ORDERED: FENTANYL CITRATE INJ/PF 100 MCG/2 ML AMPUL IV PRN ×2 (11:27→12:33)
--- NOTE | 2016-12-26 15:00 | PDOC PROGRESS REPORT ---
Subjective Progress Note for:: 12/25/16 Subjective:: Intubated and sedated Physical Exam Vital Signs: Temp Pulse Resp BP Pulse Ox 97.7 F 75 14 170/83 H 95 12/26/16 07:51 12/26/16 07:51 12/26/16 07:51 12/26/16 07:51 12/26/16 07:51 Intake & Output 12/25/16 12/26/16 12/27/16 06:59 06:59 06:59 Intake Total 5529 4522 Output Total 5370 9935 300 Balance 159 -143 -300 Weight 59 kg 57.7 kg General appearance: PRESENT: no acute distress, disheveled, thin Head exam: PRESENT: atraumatic, normocephalic Eye exam: PRESENT: conjunctiva pale Mouth exam: PRESENT: dry mucosa, neck supple, other - ET tube in place Neck exam: ABSENT: carotid bruit, JVD, lymphadenopathy, thyromegaly Respiratory exam: PRESENT: decreased breath sounds, prolonged expiratory phas, rhonchi, symmetrical, unlabored, wheezes Cardiovascular exam: PRESENT: RRR, +S1, +S2 Pulses: PRESENT: normal radial pulses GI/Abdominal exam: PRESENT: other - Status post surgery Rectal exam: PRESENT: deferred Gentrourinary exam: PRESENT: indwelling catheter Musculoskeletal exam: PRESENT: normal inspection Skin exam: PRESENT: dry, warm Results Laboratory Results: 12/26/16 05:35 12/26/16 05:35 12/26/16 12/26/16 12/26/16 05:35 05:35 05:35 WBC 11.7 H RBC 3.05 L Hgb 9.1 L Hct 27.0 L MCV 89 MCH 29.9 MCHC 33.8 RDW 13.3 Plt Count 466 H Seg Neutrophils % 82.1 H Lymphocytes % 7.4 L Monocytes % 7.2 Eosinophils % 2.5 Basophils % 0.8 Absolute Neutrophils 9.6 H Absolute Lymphocytes 0.9 Absolute Monocytes 0.8 Absolute Eosinophils 0.3 Absolute Basophils 0.1 Carbonic Acid 1.06 HCO3/H2CO3 Ratio 24:1 ABG pH 7.49 H ABG pCO2 35.1 ABG pO2 77.9 L ABG HCO3 26.0 ABG O2 Saturation 96.4 ABG Base Excess 2.6 FiO2 21% Sodium 133.8 L Potassium 3.4 L Chloride 99 Carbon Dioxide 26 Anion Gap 9 BUN 11 Creatinine 0.99 Est GFR ( Amer) > 60 Est GFR (Non-Af Amer) > 60 Glucose 134 H Calcium 8.4 12/20/16 05:55 NT-Pro-B Natriuret Pep 490 Impressions: Acute Abdomen Series 12/18/16 16:33 IMPRESSION: NO RADIOGRAPHIC EVIDENCE FOR ACUTE ABDOMINAL DISEASE. Abdomen/Pelvis CT 12/18/16 18:45 IMPRESSION: 1. Bowel perforation. Free air and contrast within the abdomen. Based on the appearance, suspect proximal GI tract viscus perforation. Possibly duodenal or gastric ulcer or proximal small bowel. Pertinent findings on the imaging study reported as a CRITICAL RESULT to LUPE HERNANDEZ MD at21:54 on 12/18/2016. Category of Critical Result: Bowel perforation. Upper GI Series 12/23/16 08:00 IMPRESSION: No evidence of contrast extravasation at the site of the ulcer repair Chest X-Ray 12/25/16 06:00 IMPRESSION: 1. Support tubes and lines as above 2. Pulmonary vascular distention interstitial prominence, similar to the prior study. Persistent left lung base opacity likely representing atelectasis/ infiltrate with associated effusion Assessment & Plan - Diagnosis (1) Acute respiratory failure following trauma and surgery Is this a current diagnosis for this admission?: YesPlan: cxr improved rr,min vol,fio2 patient still very weak (2) COPD (chronic obstructive pulmonary disease) Qualifiers: COPD type: unspecified COPD Qualified Code(s): J44.9 - Chronic obstructive pulmonary disease, unspecified Is this a current diagnosis for this admission?: YesPlan: Continue current bronchodilator therapy (3) Hyponatremia Is this a current diagnosis for this admission?: No (4) Hypocalcemia Is this a current diagnosis for this admission?: No (5) Hypoalbuminemia Is this a current diagnosis for this admission?: YesPlan: Improving awaiting start of enteral feedings (6) Septic shock Is this a current diagnosis for this admission?: No
--- NOTE | 2016-12-26 15:03 | PDOC PROGRESS REPORT ---
Subjective Progress Note for:: 12/26/16 Subjective:: Intubated and sedated but more arousable than in the past Physical Exam Vital Signs: Temp Pulse Resp BP Pulse Ox 97.7 F 75 14 170/83 H 95 12/26/16 07:51 12/26/16 07:51 12/26/16 07:51 12/26/16 07:51 12/26/16 07:51 Intake & Output 12/25/16 12/26/16 12/27/16 06:59 06:59 06:59 Intake Total 5529 4522 Output Total 5370 4665 300 Balance 159 -143 -300 Weight 59 kg 57.7 kg General appearance: PRESENT: no acute distress, disheveled, thin Head exam: PRESENT: atraumatic, normocephalic Eye exam: PRESENT: conjunctiva pale, EOMI Mouth exam: PRESENT: tongue midline, other - ET tube in place Neck exam: ABSENT: carotid bruit, JVD, lymphadenopathy, thyromegaly Respiratory exam: PRESENT: decreased breath sounds, prolonged expiratory phas, rhonchi, symmetrical, unlabored, wheezes Cardiovascular exam: PRESENT: RRR, +S1, +S2 Pulses: PRESENT: normal radial pulses GI/Abdominal exam: PRESENT: other - Surgical dressing dry and intact Rectal exam: PRESENT: deferred Gentrourinary exam: PRESENT: indwelling catheter Musculoskeletal exam: PRESENT: normal inspection Skin exam: PRESENT: dry, warm Results Laboratory Results: 12/26/16 05:35 12/26/16 05:35 12/26/16 12/26/16 12/26/16 05:35 05:35 05:35 WBC 11.7 H RBC 3.05 L Hgb 9.1 L Hct 27.0 L MCV 89 MCH 29.9 MCHC 33.8 RDW 13.3 Plt Count 466 H Seg Neutrophils % 82.1 H Lymphocytes % 7.4 L Monocytes % 7.2 Eosinophils % 2.5 Basophils % 0.8 Absolute Neutrophils 9.6 H Absolute Lymphocytes 0.9 Absolute Monocytes 0.8 Absolute Eosinophils 0.3 Absolute Basophils 0.1 Carbonic Acid 1.06 HCO3/H2CO3 Ratio 24:1 ABG pH 7.49 H ABG pCO2 35.1 ABG pO2 77.9 L ABG HCO3 26.0 ABG O2 Saturation 96.4 ABG Base Excess 2.6 FiO2 21% Sodium 133.8 L Potassium 3.4 L Chloride 99 Carbon Dioxide 26 Anion Gap 9 BUN 11 Creatinine 0.99 Est GFR ( Amer) > 60 Est GFR (Non-Af Amer) > 60 Glucose 134 H Calcium 8.4 12/20/16 05:55 NT-Pro-B Natriuret Pep 490 Impressions: Acute Abdomen Series 12/18/16 16:33 IMPRESSION: NO RADIOGRAPHIC EVIDENCE FOR ACUTE ABDOMINAL DISEASE. Abdomen/Pelvis CT 12/18/16 18:45 IMPRESSION: 1. Bowel perforation. Free air and contrast within the abdomen. Based on the appearance, suspect proximal GI tract viscus perforation. Possibly duodenal or gastric ulcer or proximal small bowel. Pertinent findings on the imaging study reported as a CRITICAL RESULT to LUPE HERNANDEZ MD at21:54 on 12/18/2016. Category of Critical Result: Bowel perforation. Upper GI Series 12/23/16 08:00 IMPRESSION: No evidence of contrast extravasation at the site of the ulcer repair Chest X-Ray 12/25/16 06:00 IMPRESSION: 1. Support tubes and lines as above 2. Pulmonary vascular distention interstitial prominence, similar to the prior study. Persistent left lung base opacity likely representing atelectasis/ infiltrate with associated effusion Assessment & Plan - Diagnosis (1) Acute respiratory failure following trauma and surgery Is this a current diagnosis for this admission?: YesPlan: Slightly decreased requirements and support patient still very weak (2) COPD (chronic obstructive pulmonary disease) Qualifiers: COPD type: unspecified COPD Qualified Code(s): J44.9 - Chronic obstructive pulmonary disease, unspecified Is this a current diagnosis for this admission?: YesPlan: Continue current bronchodilator therapy (3) Hyponatremia Is this a current diagnosis for this admission?: Yes (4) Hypocalcemia Is this a current diagnosis for this admission?: Yes (5) Hypoalbuminemia Is this a current diagnosis for this admission?: YesPlan: Improving awaiting start of enteral feedings (6) Septic shock Is this a current diagnosis for this admission?: No - Time Critical Time spent with patient: 35 or more minutes
[2016-12-26] MEDS: MORPHINE SULFATE 10 MG/ML INJ IV PRN (17:11)
[2016-12-27] MEDS: IPRATROPIUM/ALBUTEROL 0.5-2.5 MG/3 ML AMPUL NEB SCH ×4 (01:55→21:16)
[2016-12-27] MEDS: PROPOFOL 100 ML IV PRN ×3 (01:58→20:08)
[2016-12-27] MEDS: VANCOMYCIN HCL 1,000 MG in DEXTROSE 5%-WATER 250 ML IV SCH (02:00)
[2016-12-27] MEDS: POTASSI CL 20 MEQ/D5NS 1L 1,000 ML IV PRN (02:01)
[2016-12-27] MEDS: PIPERACILLIN SODIUM/TAZOBACTAM 3.375 GM in NORMAL SALINE 100 ML IV SCH ×4 (02:02→20:08)
[2016-12-27 06:06] LABS: ARTERIAL BLOOD BASE EXCESS 4.3 mmol/L; ARTERIAL BLOOD O2 SATURATION 97.3 % (94-98)
[2016-12-27 06:10] LABS: ABSOLUTE BASOPHILS # (AUTO) 0.1 10^3/uL (0.0-0.2); ABSOLUTE EOSINOPHILS # (AUTO) 0.3 10^3/uL (0.0-0.6); ABSOLUTE LYMPHOCYTES (AUTO) 1.1 10^3/uL (0.5-4.7); ABSOLUTE MONOCYTES (AUTO) 0.8 10^3/uL (0.1-1.4); BASOPHILS % (AUTO) 0.8 % (0-2); EOSINOPHILS % (AUTO) 2.6 % (0-6); HEMATOCRIT 27.1 % (37.9-51.0); HEMOGLOBIN 9.3 g/dL (13.5-17.0); HGB HCT DIFFERENCE 0.8; LYMPHOCYTES % (AUTO) 9.5 % (13-45); MEAN CORPUSCULAR HEMOGLOBIN 30.4 pg (27.0-33.4); MEAN CORPUSCULAR HGB CONC 34.4 g/dL (32.0-36.0); MEAN CORPUSCULAR VOLUME 89 fl (80-97); MONOCYTES % (AUTO) 7.3 % (3-13); RED BLOOD COUNT 3.06 10^6/uL (4.35-5.55); RED CELL DISTRIBUTION WIDTH 13.2 % (11.5-14.0); SEGMENTED NEUTROPHILS % (AUTO) 79.8 % (42-78); WHITE BLOOD COUNT 11.3 10^3/uL (4.0-10.5)
[2016-12-27 06:28] LABS: ANION GAP 8 (5-19); BLOOD UREA NITROGEN 11 mg/dL (7-20); CALCIUM 8.6 mg/dL (8.4-10.2); CARBON DIOXIDE 28 mmol/L (22-30); CHLORIDE 101 mmol/L (98-107); CREATININE RESULT 1.14 mg/dL (0.52-1.25); GLUCOSE 115 mg/dL (75-110); MAGNESIUM 1.5 mg/dL (1.6-2.3); POTASSIUM 3.3 mmol/L (3.6-5.0); SODIUM 137.1 mmol/L (137-145)
[2016-12-27] MEDS: MORPHINE SULFATE 10 MG/ML INJ IV PRN (08:07)
[2016-12-27] MEDS: LEVOFLOXACIN 750 MG/D5W RTU 750 MG/150 ML RTUPB IV SCH (08:07)
[2016-12-27] MEDS ORDERED: MAGNESIUM SULFATE/D5W 1 GM/100 ML RTUPB IV SCH (09:00)
--- NOTE | 2016-12-27 09:59 | PDOC PROGRESS REPORT ---
Subjective Progress Note for:: 12/27/16 Subjective:: Patient remains intubated. Currently on a pressure support trial. MAXIMUM TEMPERATURE last 24 hours was 99.4 at 1600. No acute events overnight. Physical Exam Vital Signs: Temp Pulse Resp BP Pulse Ox 98.6 F 75 16 155/79 H 97 12/27/16 08:00 12/27/16 08:00 12/27/16 08:00 12/27/16 08:00 12/27/16 08:00 Intake & Output 12/26/16 12/27/16 12/28/16 06:59 06:59 06:59 Intake Total 4522 3935 Output Total 4665 4715 100 Balance -143 -780 -100 Weight 57.7 kg 56.5 kg Exam: General: Awake, localizes to pain, currently intubated HEENT: AT/NC, PERRL, oropharynx is moist, pink, no scleral icterus, no conjunctival injection Neck: No JVD, trachea midline Chest: Clear to auscultation bilaterally, no wheezes rhonchi or rales CV: Regular rate and rhythm, normal S1 and S2, no murmur, rub, or gallop Abdomen: Soft, diffusely tender to palpation, nondistended, active bowel sounds ; no rebound, rigidity Extremities: No cyanosis; 1+ edema Neuro: Moves all extremities Results Laboratory Results: 12/27/16 05:50 12/27/16 05:50 12/27/16 12/27/16 12/27/16 05:50 05:50 05:50 WBC 11.3 H RBC 3.06 L Hgb 9.3 L Hct 27.1 L MCV 89 MCH 30.4 MCHC 34.4 RDW 13.2 Plt Count 513 H Seg Neutrophils % 79.8 H Lymphocytes % 9.5 L Monocytes % 7.3 Eosinophils % 2.6 Basophils % 0.8 Absolute Neutrophils 9.0 H Absolute Lymphocytes 1.1 Absolute Monocytes 0.8 Absolute Eosinophils 0.3 Absolute Basophils 0.1 Carbonic Acid 1.12 HCO3/H2CO3 Ratio 24:1 ABG pH 7.49 H ABG pCO2 37.3 ABG pO2 87.6 ABG HCO3 27.9 H ABG O2 Saturation 97.3 ABG Base Excess 4.3 FiO2 25% Sodium 137.1 Potassium 3.3 L Chloride 101 Carbon Dioxide 28 Anion Gap 8 BUN 11 Creatinine 1.14 Est GFR ( Amer) > 60 Est GFR (Non-Af Amer) > 60 Glucose 115 H Calcium 8.6 Magnesium 1.5 L 12/20/16 05:55 NT-Pro-B Natriuret Pep 490 Impressions: Acute Abdomen Series 12/18/16 16:33 IMPRESSION: NO RADIOGRAPHIC EVIDENCE FOR ACUTE ABDOMINAL DISEASE. Abdomen/Pelvis CT 12/18/16 18:45 IMPRESSION: 1. Bowel perforation. Free air and contrast within the abdomen. Based on the appearance, suspect proximal GI tract viscus perforation. Possibly duodenal or gastric ulcer or proximal small bowel. Pertinent findings on the imaging study reported as a CRITICAL RESULT to LUPE HERNANDEZ MD at21:54 on 12/18/2016. Category of Critical Result: Bowel perforation. Upper GI Series 12/23/16 08:00 IMPRESSION: No evidence of contrast extravasation at the site of the ulcer repair Chest X-Ray 12/27/16 06:00 IMPRESSION: Stable. Assessment & Plan - Diagnosis (1) Septic shock Is this a current diagnosis for this admission?: NoPlan: Patient currently greatly improved. Will begin to taper antibiotics. Secondary to generalized peritonitis from acutely perforated duodenal ulcer. (2) Acute perforated duodenal ulcer with hemorrhage Is this a current diagnosis for this admission?: YesPlan: Defer to surgical team for diagnosis and management of conditions associated with patient's acute perforation and subsequent peritonitis. (3) Acute respiratory failure following trauma and surgery Is this a current diagnosis for this admission?: YesPlan: Defer to Dr. weiner of pulmonary medicine for management of ventilator. (4) Peritonitis (acute) generalized Is this a current diagnosis for this admission?: YesPlan: Patient has completed 9 days of antibiotics. Will stop vancomycin and Levaquin and will continue Zosyn for additional 10th day. Current cultures are all negative. Will monitor patient clinically. (5) Leukopenia Qualifiers: Leukopenia type: unspecified Qualified Code(s): D72.819 - Decreased white blood cell count, unspecified Is this a current diagnosis for this admission?: YesPlan: Improved. Likely secondary to alcohol use and severe sepsis. (6) Atherosclerosis of abdominal aorta Is this a current diagnosis for this admission?: Yes (7) Tobacco abuse Is this a current diagnosis for this admission?: YesPlan: We'll give nicotine patch once patient is awake (8) Hiatal hernia Is this a current diagnosis for this admission?: Yes (9) Hyponatremia Is this a current diagnosis for this admission?: YesPlan: Improved (10) Hypoalbuminemia Is this a current diagnosis for this admission?: Yes (11) COPD (chronic obstructive pulmonary disease) Qualifiers: COPD type: unspecified COPD Qualified Code(s): J44.9 - Chronic obstructive pulmonary disease, unspecified Is this a current diagnosis for this admission?: YesPlan: Patient likely has COPD due to his long history of smoking. Continue scheduled nebulized treatments. (12) protein calorie malnourishment Is this a current diagnosis for this admission?: Yes (13) DVT prophylaxis Is this a current diagnosis for this admission?: Yes (14) GI prophylaxis Is this a current diagnosis for this admission?: Yes (15) Hypomagnesemia Is this a current diagnosis for this admission?: YesPlan: We'll give additional 3 g of magnesium IV. Continue to monitor for ventricular tachycardia. (16) Alcohol abuse Is this a current diagnosis for this admission?: YesPlan: Patient to be known alcohol abuser. Ativan drip only recently discontinued. Will place on thiamine and folic acid. Continue to monitor for electrolyte abnormalities. - Time Critical Time spent with patient: 25-34 minutes Medications reviewed and adjusted accordingly: Yes Anticipated discharge: Acute Rehab
--- NOTE | 2016-12-27 10:28 | PROGRESS NOTE E ---
Progress Note NAME: RAPHAEL BROWN : 1955 AGE: 61Y DATE: 12/27/2016 ROOM: 601 SUBJECTIVE: This is postoperative day 9 status post repair of perforated duodenal ulcer. The patient remains ventilated but is being weaned as his sedation is being decreased. OBJECTIVE: His vital signs are stable. His white count is normalizing. Physical examination is essentially unchanged. His abdomen is soft and is wound is clean. IMPRESSION: Awaiting ventilator weaning. As soon as that is accomplished, we will start him on a clear liquid diet and advance to regular diet as tolerated. Increase his activity. DICTATING PHYSICIAN: FRANCES WATT M.D. [id number] PHY#: [id number] ID: [id number] JOB#: [id number] ACCT: [id number] cc: >
[2016-12-27] MEDS: FUROSEMIDE INJ/PF 40 MG/4 ML SDV IV SCH ×2 (11:22→21:19)
[2016-12-27] MEDS: POTASSI CL 20 MEQ/50 ML RIDER 20 MEQ/50 ML RTUPB IV SCH ×2 (11:26→13:53)
[2016-12-27] MEDS: FAMOTIDINE INJ/PF 20 MG/2 ML SDV IV SCH ×2 (11:26→21:19)
--- NOTE | 2016-12-27 12:58 | PDOC PROGRESS REPORT ---
Subjective Progress Note for:: 12/27/16 Subjective:: Intubated and sedated but more arousable than in the past Physical Exam Vital Signs: Temp Pulse Resp BP Pulse Ox 98.6 F 95 21 H 178/83 H 99 12/27/16 08:00 12/27/16 10:00 12/27/16 10:00 12/27/16 10:00 12/27/16 10:00 Intake & Output 12/26/16 12/27/16 12/28/16 06:59 06:59 06:59 Intake Total 4522 3935 Output Total 4665 4715 250 Balance -143 -780 -250 Weight 57.7 kg 56.5 kg General appearance: PRESENT: no acute distress, thin Head exam: PRESENT: atraumatic, normocephalic Eye exam: PRESENT: conjunctiva pale Mouth exam: PRESENT: neck supple, other - ET tube in place Neck exam: ABSENT: carotid bruit, JVD, lymphadenopathy, thyromegaly Respiratory exam: PRESENT: decreased breath sounds, prolonged expiratory phas, rhonchi, symmetrical, unlabored Cardiovascular exam: PRESENT: RRR, +S1, +S2 Pulses: PRESENT: normal radial pulses GI/Abdominal exam: PRESENT: other - Postoperative abdomen good bowel sounds tolerating tube feedings Rectal exam: PRESENT: deferred Gentrourinary exam: PRESENT: indwelling catheter Musculoskeletal exam: PRESENT: normal inspection Skin exam: PRESENT: dry, warm Results Laboratory Results: 12/27/16 05:50 12/27/16 05:50 12/27/16 12/27/16 12/27/16 05:50 05:50 05:50 WBC 11.3 H RBC 3.06 L Hgb 9.3 L Hct 27.1 L MCV 89 MCH 30.4 MCHC 34.4 RDW 13.2 Plt Count 513 H Seg Neutrophils % 79.8 H Lymphocytes % 9.5 L Monocytes % 7.3 Eosinophils % 2.6 Basophils % 0.8 Absolute Neutrophils 9.0 H Absolute Lymphocytes 1.1 Absolute Monocytes 0.8 Absolute Eosinophils 0.3 Absolute Basophils 0.1 Carbonic Acid 1.12 HCO3/H2CO3 Ratio 24:1 ABG pH 7.49 H ABG pCO2 37.3 ABG pO2 87.6 ABG HCO3 27.9 H ABG O2 Saturation 97.3 ABG Base Excess 4.3 FiO2 25% Sodium 137.1 Potassium 3.3 L Chloride 101 Carbon Dioxide 28 Anion Gap 8 BUN 11 Creatinine 1.14 Est GFR ( Amer) > 60 Est GFR (Non-Af Amer) > 60 Glucose 115 H Calcium 8.6 Magnesium 1.5 L 12/22/16 08:19 Blood Blood Culture - Final NO GROWTH IN 5 DAYS 12/20/16 05:55 NT-Pro-B Natriuret Pep 490 Impressions: Acute Abdomen Series 12/18/16 16:33 IMPRESSION: NO RADIOGRAPHIC EVIDENCE FOR ACUTE ABDOMINAL DISEASE. Abdomen/Pelvis CT 12/18/16 18:45 IMPRESSION: 1. Bowel perforation. Free air and contrast within the abdomen. Based on the appearance, suspect proximal GI tract viscus perforation. Possibly duodenal or gastric ulcer or proximal small bowel. Pertinent findings on the imaging study reported as a CRITICAL RESULT to LUPE HERNANDEZ MD at21:54 on 12/18/2016. Category of Critical Result: Bowel perforation. Upper GI Series 12/23/16 08:00 IMPRESSION: No evidence of contrast extravasation at the site of the ulcer repair Chest X-Ray 12/27/16 06:00 IMPRESSION: Stable. Assessment & Plan - Diagnosis (1) Acute respiratory failure following trauma and surgery Is this a current diagnosis for this admission?: YesPlan: patient still very weak and lethargic FiO2 minute ventilation and respiratory rate are good levels (2) COPD (chronic obstructive pulmonary disease) Qualifiers: COPD type: unspecified COPD Qualified Code(s): J44.9 - Chronic obstructive pulmonary disease, unspecified Is this a current diagnosis for this admission?: YesPlan: Continue current bronchodilator therapy (3) Hyponatremia Is this a current diagnosis for this admission?: No (4) Hypocalcemia Is this a current diagnosis for this admission?: No (5) Hypoalbuminemia Is this a current diagnosis for this admission?: YesPlan: Improving awaiting start of enteral feedings (6) Septic shock Is this a current diagnosis for this admission?: No - Time Critical Time spent with patient: 25-34 minutes - 30 minutes
[2016-12-28] MEDS: POTASSI CL 20 MEQ/D5NS 1L 1,000 ML IV PRN ×3 (00:47→17:14)
[2016-12-28] MEDS: IPRATROPIUM/ALBUTEROL 0.5-2.5 MG/3 ML AMPUL NEB SCH ×4 (02:20→19:50)
[2016-12-28] MEDS: PIPERACILLIN SODIUM/TAZOBACTAM 3.375 GM in NORMAL SALINE 100 ML IV SCH ×4 (03:24→20:03)
[2016-12-28] MEDS: PROPOFOL 100 ML IV PRN (03:24)
[2016-12-28 05:56] LABS: HEMATOCRIT 26.4 % (37.9-51.0); HEMOGLOBIN 9.2 g/dL (13.5-17.0); HGB HCT DIFFERENCE 1.2; MEAN CORPUSCULAR HEMOGLOBIN 30.6 pg (27.0-33.4); MEAN CORPUSCULAR HGB CONC 34.9 g/dL (32.0-36.0); MEAN CORPUSCULAR VOLUME 88 fl (80-97); RED BLOOD COUNT 3.01 10^6/uL (4.35-5.55); RED CELL DISTRIBUTION WIDTH 13.5 % (11.5-14.0); WHITE BLOOD COUNT 10.9 10^3/uL (4.0-10.5)
[2016-12-28 06:04] LABS: ARTERIAL BLOOD O2 SATURATION 97.7 % (94-98)
[2016-12-28 06:22] LABS: ALANINE AMINOTRANSFERASE 27 U/L (21-72); ALBUMIN 2.3 g/dL (3.5-5.0); ALKALINE PHOSPHATASE 84 U/L (38-126); ANION GAP 11 (5-19); ASPARTATE AMINO TRANSFERASE 28 U/L (17-59); BILIRUBIN,TOTAL 0.2 mg/dL (0.2-1.3); BLOOD UREA NITROGEN 11 mg/dL (7-20); CALCIUM 8.7 mg/dL (8.4-10.2); CARBON DIOXIDE 27 mmol/L (22-30); CHLORIDE 101 mmol/L (98-107); CREATININE RESULT 1.21 mg/dL (0.52-1.25); GLUCOSE 108 mg/dL (75-110); POTASSIUM 3.8 mmol/L (3.6-5.0); SODIUM 138.5 mmol/L (137-145); TRIGLYCERIDES 83 mg/dL (<150)
[2016-12-28] MEDS: FUROSEMIDE INJ/PF 40 MG/4 ML SDV IV SCH ×2 (09:18→21:18)
[2016-12-28] MEDS: FAMOTIDINE INJ/PF 20 MG/2 ML SDV IV SCH ×2 (09:19→21:18)
[2016-12-28] MEDS: HYDRALAZINE HCL INJ/PF 20 MG/1 ML SDV IV PRN (15:33)
--- NOTE | 2016-12-28 16:56 | PDOC PROGRESS REPORT ---
Subjective Progress Note for:: 12/28/16 Subjective:: more arousable than in the past Physical Exam Vital Signs: Temp Pulse Resp BP Pulse Ox 98.8 F 70 14 158/72 H 100 12/28/16 04:00 12/28/16 08:00 12/28/16 07:38 12/28/16 06:40 12/28/16 07:38 Intake & Output 12/27/16 12/28/16 12/29/16 06:59 06:59 06:59 Intake Total 3935 3834 Output Total 4715 5325 130 Balance -780 -1491 -130 Weight 56.5 kg 56 kg General appearance: PRESENT: no acute distress, disheveled, thin, well-developed Head exam: PRESENT: atraumatic, normocephalic Eye exam: PRESENT: conjunctiva pale Mouth exam: PRESENT: moist, neck supple, tongue midline, other - ET tube in place Neck exam: ABSENT: carotid bruit, JVD, lymphadenopathy, thyromegaly Respiratory exam: PRESENT: decreased breath sounds, prolonged expiratory phas, rhonchi, symmetrical, unlabored, wheezes Cardiovascular exam: PRESENT: RRR, +S1, +S2 Pulses: PRESENT: normal radial pulses GI/Abdominal exam: PRESENT: other - Status post surgery dressings dry and intact good bowel sounds passing stool Rectal exam: PRESENT: deferred Gentrourinary exam: PRESENT: indwelling catheter Musculoskeletal exam: PRESENT: normal inspection Neurological exam: PRESENT: awake Skin exam: PRESENT: dry, warm Results Laboratory Results: 12/28/16 05:40 12/28/16 05:40 12/28/16 12/28/16 12/28/16 05:40 05:40 05:40 WBC 10.9 H RBC 3.01 L Hgb 9.2 L Hct 26.4 L MCV 88 MCH 30.6 MCHC 34.9 RDW 13.5 Plt Count 534 H Carbonic Acid 1.14 HCO3/H2CO3 Ratio 25:1 ABG pH 7.49 H ABG pCO2 38.0 ABG pO2 94.4 ABG HCO3 28.6 H ABG O2 Saturation 97.7 ABG Base Excess 5.0 FiO2 25% Sodium 138.5 Potassium 3.8 Chloride 101 Carbon Dioxide 27 Anion Gap 11 BUN 11 Creatinine 1.21 Est GFR ( Amer) > 60 Est GFR (Non-Af Amer) > 60 Glucose 108 Calcium 8.7 Total Bilirubin 0.2 AST 28 ALT 27 Alkaline Phosphatase 84 Total Protein 5.0 L Albumin 2.3 L Triglycerides 83 12/22/16 08:19 Blood Blood Culture - Final NO GROWTH IN 5 DAYS 12/20/16 05:55 NT-Pro-B Natriuret Pep 490 Impressions: Acute Abdomen Series 12/18/16 16:33 IMPRESSION: NO RADIOGRAPHIC EVIDENCE FOR ACUTE ABDOMINAL DISEASE. Abdomen/Pelvis CT 12/18/16 18:45 IMPRESSION: 1. Bowel perforation. Free air and contrast within the abdomen. Based on the appearance, suspect proximal GI tract viscus perforation. Possibly duodenal or gastric ulcer or proximal small bowel. Pertinent findings on the imaging study reported as a CRITICAL RESULT to LUPE HERNANDEZ MD at21:54 on 12/18/2016. Category of Critical Result: Bowel perforation. Upper GI Series 12/23/16 08:00 IMPRESSION: No evidence of contrast extravasation at the site of the ulcer repair Chest X-Ray 12/28/16 06:00 IMPRESSION: Worsened small bilateral lower lobar opacity -effusion. Lines and tubes. Assessment & Plan - Diagnosis (1) Acute respiratory failure following trauma and surgery Is this a current diagnosis for this admission?: YesPlan: FiO2 minute ventilation and respiratory rate as well as airway pressures are good levels; improve mental status will proceed with extubation (2) COPD (chronic obstructive pulmonary disease) Qualifiers: COPD type: unspecified COPD Qualified Code(s): J44.9 - Chronic obstructive pulmonary disease, unspecified Is this a current diagnosis for this admission?: YesPlan: Continue current bronchodilator therapy (3) Hyponatremia Is this a current diagnosis for this admission?: No (4) Hypocalcemia Is this a current diagnosis for this admission?: No (5) Hypoalbuminemia Is this a current diagnosis for this admission?: Yes (6) Septic shock Is this a current diagnosis for this admission?: No - Time Critical Time spent with patient: 35 or more minutes - 55 minutes extubation
[2016-12-28] MEDS ORDERED: LOSARTAN POTASSIUM 25 MG TABLET NG SCH (17:00)
--- NOTE | 2016-12-28 17:07 | PDOC PROGRESS REPORT ---
Subjective Progress Note for:: 12/28/16 Subjective:: Patient seen on morning rounds. Patient remains intubated. Currently on a pressure support trial and doing well. Patient is following commands. MAXIMUM TEMPERATURE last 24 hours was 99.2. No acute events overnight. Physical Exam Vital Signs: Temp Pulse Resp BP Pulse Ox 98.8 F 65 14 158/72 H 99 12/28/16 04:00 12/28/16 02:20 12/28/16 02:20 12/28/16 06:40 12/28/16 06:45 Intake & Output 12/27/16 12/28/16 12/29/16 06:59 06:59 06:59 Intake Total 3935 3834 Output Total 6228 2579 Balance -780 -1498 Weight 56.5 kg 56 kg Exam: General: Awake, follows commands, currently intubated HEENT: AT/NC, PERRL, oropharynx is moist, pink, no scleral icterus, no conjunctival injection Neck: No JVD, trachea midline Chest: Clear to auscultation bilaterally, no wheezes rhonchi or rales CV: Regular rate and rhythm, normal S1 and S2, no murmur, rub, or gallop Abdomen: Soft, nontender to palpation, nondistended, active bowel sounds; no rebound, rigidity, guarding Extremities: No cyanosis; trace edema Neuro: Moves all extremities Results Laboratory Results: 12/28/16 05:40 12/28/16 05:40 12/28/16 12/28/16 12/28/16 05:40 05:40 05:40 WBC 10.9 H RBC 3.01 L Hgb 9.2 L Hct 26.4 L MCV 88 MCH 30.6 MCHC 34.9 RDW 13.5 Plt Count 534 H Carbonic Acid 1.14 HCO3/H2CO3 Ratio 25:1 ABG pH 7.49 H ABG pCO2 38.0 ABG pO2 94.4 ABG HCO3 28.6 H ABG O2 Saturation 97.7 ABG Base Excess 5.0 FiO2 25% Sodium 138.5 Potassium 3.8 Chloride 101 Carbon Dioxide 27 Anion Gap 11 BUN 11 Creatinine 1.21 Est GFR ( Amer) > 60 Est GFR (Non-Af Amer) > 60 Glucose 108 Calcium 8.7 Total Bilirubin 0.2 AST 28 ALT 27 Alkaline Phosphatase 84 Total Protein 5.0 L Albumin 2.3 L Triglycerides 83 12/22/16 08:19 Blood Blood Culture - Final NO GROWTH IN 5 DAYS 12/20/16 05:55 NT-Pro-B Natriuret Pep 490 Impressions: Acute Abdomen Series 12/18/16 16:33 IMPRESSION: NO RADIOGRAPHIC EVIDENCE FOR ACUTE ABDOMINAL DISEASE. Abdomen/Pelvis CT 12/18/16 18:45 IMPRESSION: 1. Bowel perforation. Free air and contrast within the abdomen. Based on the appearance, suspect proximal GI tract viscus perforation. Possibly duodenal or gastric ulcer or proximal small bowel. Pertinent findings on the imaging study reported as a CRITICAL RESULT to LUPE HERNANDEZ MD at21:54 on 12/18/2016. Category of Critical Result: Bowel perforation. Upper GI Series 12/23/16 08:00 IMPRESSION: No evidence of contrast extravasation at the site of the ulcer repair Assessment & Plan - Diagnosis (1) Septic shock Is this a current diagnosis for this admission?: NoPlan: Patient currently greatly improved. Secondary to generalized peritonitis from acutely perforated duodenal ulcer. On Zosyn day #10. (2) Acute perforated duodenal ulcer with hemorrhage Is this a current diagnosis for this admission?: YesPlan: Defer to surgical team for diagnosis and management of conditions associated with patient's acute perforation and subsequent peritonitis. (3) Acute respiratory failure following trauma and surgery Is this a current diagnosis for this admission?: YesPlan: Defer to Dr. weiner of pulmonary medicine for management of ventilator. Plan tracks to patient today. (4) Peritonitis (acute) generalized Is this a current diagnosis for this admission?: Yes (5) Leukopenia Qualifiers: Leukopenia type: unspecified Qualified Code(s): D72.819 - Decreased white blood cell count, unspecified Is this a current diagnosis for this admission?: Yes (6) Atherosclerosis of abdominal aorta Is this a current diagnosis for this admission?: Yes (7) Tobacco abuse Is this a current diagnosis for this admission?: Yes (8) Hiatal hernia Is this a current diagnosis for this admission?: Yes (9) Hyponatremia Is this a current diagnosis for this admission?: No (10) Hypoalbuminemia Is this a current diagnosis for this admission?: Yes (11) COPD (chronic obstructive pulmonary disease) Qualifiers: COPD type: unspecified COPD Qualified Code(s): J44.9 - Chronic obstructive pulmonary disease, unspecified Is this a current diagnosis for this admission?: Yes (12) protein calorie malnourishment Is this a current diagnosis for this admission?: Yes (13) DVT prophylaxis Is this a current diagnosis for this admission?: Yes (14) GI prophylaxis Is this a current diagnosis for this admission?: Yes (15) Hypomagnesemia Is this a current diagnosis for this admission?: Yes (16) Alcohol abuse Is this a current diagnosis for this admission?: Yes - Time Critical Time spent with patient: 25-34 minutes Medications reviewed and adjusted accordingly: Yes Anticipated discharge: Acute Rehab
[2016-12-28] MEDS ORDERED: LISINOPRIL 10 MG TABLET NG ONE (17:30)
[2016-12-28] MEDS ORDERED: ENOXAPARIN SODIUM INJ 40 MG/0.4 ML DISP.SYRIN SUBCUT ONE (18:00)
--- NOTE | 2016-12-28 18:28 | PROGRESS NOTE E ---
Progress Note NAME: RAPHAEL BROWN : 1955 AGE: 61Y DATE: 12/28/2016 ROOM: 601 SUBJECTIVE: The patient is an elderly 61-year-old gentleman who had a post-laparotomy perforated duodenal ulcer. He has been extubated today but has not passed the swallowing study. His nasogastric tube remains in place for tube feeding. OBJECTIVE: ABDOMEN: His abdomen is soft and nontender. His wound is healing nicely, it is clean. The Mauro-Lennon drain is in place and has serous-type fluid without evidence of bleeding or purulence. PLAN: The patient is continuing on primary medical care on the medicine service, and we will available should there be any further question or problem. DICTATING PHYSICIAN: FRANCES WATT M.D. [id number] Y#: [id number] ID: [id number] JOB#: [id number] ACCT: [id number] cc:ROBERTO WATT M.D. >
[2016-12-28] MEDS: MORPHINE SULFATE 10 MG/ML INJ IV PRN (19:41)
[2016-12-29] MEDS: POTASSI CL 20 MEQ/D5NS 1L 1,000 ML IV PRN ×3 (01:23→19:55)
[2016-12-29] MEDS: IPRATROPIUM/ALBUTEROL 0.5-2.5 MG/3 ML AMPUL NEB SCH ×4 (02:45→20:51)
[2016-12-29] MEDS: PIPERACILLIN SODIUM/TAZOBACTAM 3.375 GM in NORMAL SALINE 100 ML IV SCH (03:34)
[2016-12-29 06:34] LABS: ABSOLUTE BASOPHILS # (AUTO) 0.1 10^3/uL (0.0-0.2); ABSOLUTE EOSINOPHILS # (AUTO) 0.3 10^3/uL (0.0-0.6); ABSOLUTE LYMPHOCYTES (AUTO) 1.2 10^3/uL (0.5-4.7); ABSOLUTE MONOCYTES (AUTO) 0.9 10^3/uL (0.1-1.4); ABSOLUTE NEUT (AUTO) 9.6 10^3/uL (1.7-8.2); BASOPHILS % (AUTO) 0.8 % (0-2); EOSINOPHILS % (AUTO) 2.4 % (0-6); HEMATOCRIT 26.8 % (37.9-51.0); HEMOGLOBIN 9.1 g/dL (13.5-17.0); HGB HCT DIFFERENCE 0.5; LYMPHOCYTES % (AUTO) 10.1 % (13-45); MEAN CORPUSCULAR VOLUME 88 fl (80-97); MONOCYTES % (AUTO) 7.4 % (3-13); RED BLOOD COUNT 3.03 10^6/uL (4.35-5.55); RED CELL DISTRIBUTION WIDTH 13.5 % (11.5-14.0); SEGMENTED NEUTROPHILS % (AUTO) 79.3 % (42-78)
[2016-12-29 06:39] LABS: ARTERIAL BLOOD BASE EXCESS 6.6 mmol/L; ARTERIAL BLOOD O2 SATURATION 97.3 % (94-98)
[2016-12-29 07:06] LABS: ALANINE AMINOTRANSFERASE 30 U/L (21-72); ALBUMIN 2.6 g/dL (3.5-5.0); ALKALINE PHOSPHATASE 88 U/L (38-126); ANION GAP 9 (5-19); ASPARTATE AMINO TRANSFERASE 43 U/L (17-59); BILIRUBIN,TOTAL 0.9 mg/dL (0.2-1.3); BLOOD UREA NITROGEN 9 mg/dL (7-20); CALCIUM 9.3 mg/dL (8.4-10.2); CARBON DIOXIDE 32 mmol/L (22-30); CHLORIDE 104 mmol/L (98-107); CREATININE RESULT 1.54 mg/dL (0.52-1.25); GLUCOSE 89 mg/dL (75-110); MAGNESIUM 1.7 mg/dL (1.6-2.3); PHOSPHORUS 5.9 mg/dL (2.5-4.5); POTASSIUM 3.2 mmol/L (3.6-5.0); TOTAL PROTEIN 5.6 g/dL (6.3-8.2)
[2016-12-29] MEDS: ENOXAPARIN SODIUM INJ 40 MG/0.4 ML DISP.SYRIN SUBCUT SCH (07:55)
[2016-12-29] MEDS ORDERED: POTASSIUM CHLORIDE 20 MEQ/15 ML UDCUP NG ONE (08:30)
[2016-12-29] MEDS: LISINOPRIL 10 MG TABLET NG SCH (09:29)
[2016-12-29] MEDS: FAMOTIDINE INJ/PF 20 MG/2 ML SDV IV SCH ×2 (09:30→21:48)
[2016-12-29] MEDS ORDERED: HALOPERIDOL LACTATE INJ 5 MG/1 ML VIAL IV PRN (09:57)
[2016-12-29] MEDS: FOLIC ACID 1 MG TABLET PO SCH (10:18)
[2016-12-29] MEDS: THIAMINE HCL 100 MG TABLET PO SCH (10:19)
[2016-12-29] MEDS: MULTIVITAMIN TABLET PO SCH (10:19)
--- NOTE | 2016-12-29 15:56 | PDOC PROGRESS REPORT ---
Subjective Progress Note for:: 12/29/16 Subjective:: 24 hours status post extubation stable Physical Exam Vital Signs: Temp Pulse Resp BP Pulse Ox 97.8 F 76 20 167/82 H 100 12/29/16 12:00 12/29/16 14:23 12/29/16 14:31 12/29/16 14:31 12/29/16 14:31 Intake & Output 12/28/16 12/29/16 12/30/16 06:59 06:59 06:59 Intake Total 3834 3379 Output Total 5325 6115 475 Balance -1491 -2736 -475 Weight 56 kg 53.3 kg General appearance: PRESENT: disheveled, thin Head exam: PRESENT: atraumatic, normocephalic Eye exam: PRESENT: conjunctiva pale, EOMI Mouth exam: PRESENT: neck supple Neck exam: ABSENT: carotid bruit, JVD, lymphadenopathy, thyromegaly Respiratory exam: PRESENT: decreased breath sounds, prolonged expiratory phas, stridor, symmetrical, unlabored, wheezes Cardiovascular exam: PRESENT: RRR, +S1, +S2 Pulses: PRESENT: normal radial pulses GI/Abdominal exam: PRESENT: other - Positive bowel sounds tolerating feeding status post surgery Rectal exam: PRESENT: deferred Gentrourinary exam: PRESENT: indwelling catheter Musculoskeletal exam: PRESENT: normal inspection Neurological exam: PRESENT: awake Focused psych exam: PRESENT: restlessness Skin exam: PRESENT: dry, warm Results Laboratory Results: 12/29/16 06:15 12/29/16 06:15 12/29/16 12/29/16 12/29/16 06:15 06:15 06:15 WBC 12.0 H RBC 3.03 L Hgb 9.1 L Hct 26.8 L MCV 88 MCH 30.0 MCHC 34.0 RDW 13.5 Plt Count 609 H Seg Neutrophils % 79.3 H Lymphocytes % 10.1 L Monocytes % 7.4 Eosinophils % 2.4 Basophils % 0.8 Absolute Neutrophils 9.6 H Absolute Lymphocytes 1.2 Absolute Monocytes 0.9 Absolute Eosinophils 0.3 Absolute Basophils 0.1 Carbonic Acid 1.32 HCO3/H2CO3 Ratio 23:1 ABG pH 7.47 H ABG pCO2 44.0 ABG pO2 90.6 ABG HCO3 30.9 H ABG O2 Saturation 97.3 ABG Base Excess 6.6 FiO2 3 L Sodium 145.0 Potassium 3.2 L Chloride 104 Carbon Dioxide 32 H Anion Gap 9 BUN 9 Creatinine 1.54 H Est GFR ( Amer) 56 L Est GFR (Non-Af Amer) 46 L Glucose 89 Calcium 9.3 Phosphorus 5.9 H Magnesium 1.7 Total Bilirubin 0.9 AST 43 ALT 30 Alkaline Phosphatase 88 Total Protein 5.6 L Albumin 2.6 L 12/20/16 05:55 NT-Pro-B Natriuret Pep 490 Impressions: Acute Abdomen Series 12/18/16 16:33 IMPRESSION: NO RADIOGRAPHIC EVIDENCE FOR ACUTE ABDOMINAL DISEASE. Abdomen/Pelvis CT 12/18/16 18:45 IMPRESSION: 1. Bowel perforation. Free air and contrast within the abdomen. Based on the appearance, suspect proximal GI tract viscus perforation. Possibly duodenal or gastric ulcer or proximal small bowel. Pertinent findings on the imaging study reported as a CRITICAL RESULT to LUPE HERNANDEZ MD at21:54 on 12/18/2016. Category of Critical Result: Bowel perforation. Upper GI Series 12/23/16 08:00 IMPRESSION: No evidence of contrast extravasation at the site of the ulcer repair Chest X-Ray 12/29/16 06:00 IMPRESSION: Mild interval worsening. Lines and tubes. Assessment & Plan - Diagnosis (1) Acute respiratory failure following trauma and surgery Is this a current diagnosis for this admission?: YesPlan: 24 hours status post extubation stable with good blood gas checks x-ray still continues to demonstrate volume overload (2) COPD (chronic obstructive pulmonary disease) Qualifiers: COPD type: unspecified COPD Qualified Code(s): J44.9 - Chronic obstructive pulmonary disease, unspecified Is this a current diagnosis for this admission?: YesPlan: Continue current bronchodilator therapy (3) Hyponatremia Is this a current diagnosis for this admission?: No (4) Hypocalcemia Is this a current diagnosis for this admission?: No (5) Hypoalbuminemia Is this a current diagnosis for this admission?: Yes (6) Septic shock Is this a current diagnosis for this admission?: No - Time Critical Time spent with patient: 25-34 minutes - 30 minutes
[2016-12-29] MEDS: LANSOPRAZOLE 30 MG TAB.RAP.DR PO SCH (17:40)
--- NOTE | 2016-12-29 18:34 | PROGRESS NOTE E ---
Progress Note NAME: RAPHAEL BROWN : 1955 AGE: 61Y DATE: 12/29/2016 ROOM: 601 SUBJECTIVE: The patient continues to do quite well after surgical intervention for perforated duodenal ulcer. He is now extubated, and he has passed a swallowing study and actually tolerated a regular diet today. OBJECTIVE: GENERAL: He remains comfortable. ABDOMEN: Soft. His wound is clean. PLAN: Transfer out of the ICU in approximately 24 hours. From the surgical standpoint, he has done quite well, and I will plan to discontinue his Mauro-Lennon drain in the a.m. DICTATING PHYSICIAN: FRANCES WATT M.D. [id number] PHY#: [id number] ID: [id number] JOB#: [id number] ACCT: [id number] cc: >
[2016-12-30] MEDS: IPRATROPIUM/ALBUTEROL 0.5-2.5 MG/3 ML AMPUL NEB SCH ×4 (02:12→19:51)
[2016-12-30] MEDS: POTASSI CL 20 MEQ/D5NS 1L 1,000 ML IV PRN ×2 (04:39→22:10)
[2016-12-30] MEDS: LANSOPRAZOLE 30 MG TAB.RAP.DR PO SCH ×2 (05:31→18:01)
[2016-12-30] MEDS: FAMOTIDINE INJ/PF 20 MG/2 ML SDV IV SCH ×2 (11:13→22:10)
[2016-12-30] MEDS: LISINOPRIL 10 MG TABLET NG SCH (11:14)
[2016-12-30] MEDS: ENOXAPARIN SODIUM INJ 40 MG/0.4 ML DISP.SYRIN SUBCUT SCH (11:14)
[2016-12-30] MEDS: MULTIVITAMIN TABLET PO SCH (11:14)
[2016-12-30] MEDS: THIAMINE HCL 100 MG TABLET PO SCH (11:14)
[2016-12-30] MEDS: FOLIC ACID 1 MG TABLET PO SCH (11:14)
--- NOTE | 2016-12-30 14:18 | PROGRESS NOTE E ---
Progress Note NAME: RAPHAEL BROWN : 1955 AGE: 61Y DATE: 12/30/2016 ROOM: 401 SUBJECTIVE: Postoperative day 6 status post perforated duodenal ulcer repair. The patient is on the ryan now. He is alert, appropriate, and nasogastric tube has been removed. He is tolerating clear liquids, which will be advanced to a regular diet. OBJECTIVE: GENERAL: His physical examination is improving. His mental status seems to have improved. CHEST: Clear. ABDOMEN: Soft and nontender. I removed his Mauro-Lennon drain and will remove some niles and place Steri-Strips. PLAN: Physical Therapy is attending to the patient for increasing activity and Discharge Planning consult is pending. DICTATING PHYSICIAN: FRANCES WATT M.D. [id number] PHY#: [id number] ID: [id number] JOB#: [id number] ACCT: [id number] cc: >
--- NOTE | 2016-12-30 21:12 | PDOC PROGRESS REPORT ---
Subjective Progress Note for:: 12/30/16 Subjective:: Patient seen earlier on morning rounds. Patient remains extubated and doing well. No acute events overnight. Patient reports she's feeling well. Denies any new complaints. Physical Exam Vital Signs: Temp Pulse Resp BP Pulse Ox 98.4 F 90 16 166/74 H 94 12/30/16 19:20 12/30/16 20:00 12/30/16 20:00 12/30/16 19:20 12/30/16 19:20 Intake & Output 12/29/16 12/30/16 12/31/16 06:59 06:59 06:59 Intake Total 3379 3122 1040 Output Total 6115 1240 800 Balance -2736 1882 240 Weight 53.3 kg 54.2 kg Exam: General: Awake and answers questions appropriately, no acute respiratory distress HEENT: AT/NC, PERRL, oropharynx is slightly dry, pink, no scleral icterus, no conjunctival injection Neck: No JVD, trachea midline Chest: Clear to auscultation bilaterally, no wheezes rhonchi or rales CV: Regular rate and rhythm, normal S1 and S2, no murmur, rub, or gallop Abdomen: Soft, nontender to palpation, nondistended, active bowel sounds; no rebound, rigidity, guarding, midline incision well-healing Extremities: No cyanosis; trace edema; mild clubbing Neuro: Cranial nerves grossly intact without focal deficit Psych: Normal mood and affect Results Laboratory Results: 12/29/16 06:15 12/29/16 06:15 12/27/16 11:40 Tracheal Aspirate Gram Stain - Final 12/27/16 11:40 Tracheal Aspirate Sputum Culture - Final C.albicans/C.dubliniensis Normal Erica Absent 12/20/16 05:55 NT-Pro-B Natriuret Pep 490 Impressions: Acute Abdomen Series 12/18/16 16:33 IMPRESSION: NO RADIOGRAPHIC EVIDENCE FOR ACUTE ABDOMINAL DISEASE. Abdomen/Pelvis CT 12/18/16 18:45 IMPRESSION: 1. Bowel perforation. Free air and contrast within the abdomen. Based on the appearance, suspect proximal GI tract viscus perforation. Possibly duodenal or gastric ulcer or proximal small bowel. Pertinent findings on the imaging study reported as a CRITICAL RESULT to LUPE HERNANDEZ MD at21:54 on 12/18/2016. Category of Critical Result: Bowel perforation. Upper GI Series 12/23/16 08:00 IMPRESSION: No evidence of contrast extravasation at the site of the ulcer repair Chest X-Ray 12/29/16 06:00 IMPRESSION: Mild interval worsening. Lines and tubes. Assessment & Plan - Diagnosis (1) Septic shock Is this a current diagnosis for this admission?: NoPlan: Patient currently greatly improved. Secondary to generalized peritonitis from acutely perforated duodenal ulcer. Patient completed 10 days of Zosyn. His antibiotic stopped. Will monitor CBC tomorrow. (2) Acute perforated duodenal ulcer with hemorrhage Is this a current diagnosis for this admission?: YesPlan: Defer to surgical team for diagnosis and management of conditions associated with patient's acute perforation and subsequent peritonitis. (3) Acute respiratory failure following trauma and surgery Is this a current diagnosis for this admission?: YesPlan: Defer to Dr. weiner of pulmonary medicine for management of ventilator. Patient remains extubated and doing well. (4) Peritonitis (acute) generalized Is this a current diagnosis for this admission?: Yes (5) Leukopenia Qualifiers: Leukopenia type: unspecified Qualified Code(s): D72.819 - Decreased white blood cell count, unspecified Is this a current diagnosis for this admission?: Yes (6) Atherosclerosis of abdominal aorta Is this a current diagnosis for this admission?: Yes (7) Tobacco abuse Is this a current diagnosis for this admission?: Yes (8) Hiatal hernia Is this a current diagnosis for this admission?: Yes (9) Hyponatremia Is this a current diagnosis for this admission?: No (10) Hypoalbuminemia Is this a current diagnosis for this admission?: Yes (11) COPD (chronic obstructive pulmonary disease) Qualifiers: COPD type: unspecified COPD Qualified Code(s): J44.9 - Chronic obstructive pulmonary disease, unspecified Is this a current diagnosis for this admission?: YesPlan: Patient likely has COPD due to his long history of smoking. Continue scheduled nebulized treatments. (12) protein calorie malnourishment Is this a current diagnosis for this admission?: Yes (13) DVT prophylaxis Is this a current diagnosis for this admission?: Yes (14) GI prophylaxis Is this a current diagnosis for this admission?: Yes (15) Hypomagnesemia Is this a current diagnosis for this admission?: Yes (16) Alcohol abuse Is this a current diagnosis for this admission?: YesPlan: Patient to be known alcohol abuser. On thiamine and folic acid. Continue to monitor for electrolyte abnormalities. - Time Time Spent with patient: 15-24 minutes Medications reviewed and adjusted accordingly: Yes Anticipated discharge: Acute Rehab
[2016-12-31] MEDS ORDERED: GUAIFENESIN SYRP 200 MG/10 ML UDC PO PRN (01:58)
[2016-12-31] MEDS: IPRATROPIUM/ALBUTEROL 0.5-2.5 MG/3 ML AMPUL NEB SCH ×4 (02:04→19:48)
[2016-12-31] MEDS: LANSOPRAZOLE 30 MG TAB.RAP.DR PO SCH ×2 (05:15→17:12)
[2016-12-31 05:29] LABS: ABSOLUTE BASOPHILS # (AUTO) 0.2 10^3/uL (0.0-0.2); ABSOLUTE EOSINOPHILS # (AUTO) 0.2 10^3/uL (0.0-0.6); ABSOLUTE LYMPHOCYTES (AUTO) 1.7 10^3/uL (0.5-4.7); ABSOLUTE MONOCYTES (AUTO) 1.5 10^3/uL (0.1-1.4); ABSOLUTE NEUT (AUTO) 11.8 10^3/uL (1.7-8.2); BASOPHILS % (AUTO) 1.1 % (0-2); EOSINOPHILS % (AUTO) 1.2 % (0-6); HEMATOCRIT 24.8 % (37.9-51.0); HEMOGLOBIN 8.1 g/dL (13.5-17.0); HGB HCT DIFFERENCE -0.5; MEAN CORPUSCULAR HEMOGLOBIN 28.8 pg (27.0-33.4); MEAN CORPUSCULAR HGB CONC 32.6 g/dL (32.0-36.0); MEAN CORPUSCULAR VOLUME 89 fl (80-97); MONOCYTES % (AUTO) 9.9 % (3-13); RED CELL DISTRIBUTION WIDTH 13.4 % (11.5-14.0); SEGMENTED NEUTROPHILS % (AUTO) 76.8 % (42-78); WHITE BLOOD COUNT 15.4 10^3/uL (4.0-10.5)
[2016-12-31 06:02] LABS: ANION GAP 10 (5-19); BLOOD UREA NITROGEN 10 mg/dL (7-20); CALCIUM 8.6 mg/dL (8.4-10.2); CARBON DIOXIDE 23 mmol/L (22-30); CHLORIDE 106 mmol/L (98-107); CREATININE RESULT 1.23 mg/dL (0.52-1.25); GLUCOSE 111 mg/dL (75-110); POTASSIUM 3.7 mmol/L (3.6-5.0); SODIUM 138.7 mmol/L (137-145)
[2016-12-31] MEDS: POTASSI CL 20 MEQ/D5NS 1L 1,000 ML IV PRN (06:22)
[2016-12-31] MEDS ORDERED: FUROSEMIDE INJ/PF 20 MG/2 ML SDV IV ONE (07:36)
[2016-12-31] MEDS ORDERED: FUROSEMIDE INJ/PF 20 MG/2 ML SDV ONE (07:46)
[2016-12-31] MEDS: MULTIVITAMIN TABLET PO SCH (10:08)
[2016-12-31] MEDS: LISINOPRIL 10 MG TABLET NG SCH (10:08)
[2016-12-31] MEDS: THIAMINE HCL 100 MG TABLET PO SCH (10:08)
[2016-12-31] MEDS: FOLIC ACID 1 MG TABLET PO SCH (10:08)
[2016-12-31] MEDS: FLUTICASONE NASAL SPRAY 50 MCG/SPRY 120 SPRAY/16 GM NASL SCH ×2 (10:08→21:56)
[2016-12-31] MEDS: ENOXAPARIN SODIUM INJ 40 MG/0.4 ML DISP.SYRIN SUBCUT SCH (10:08)
[2016-12-31] MEDS ORDERED: LINEZOLID 600 MG RTU 300 ML IV ONE (12:00)
[2016-12-31] MEDS ORDERED: CARVEDILOL 6.25 MG TABLET PO ONE (12:00)
[2016-12-31] MEDS ORDERED: LISINOPRIL 10 MG TABLET NG ONE (12:30)
--- NOTE | 2016-12-31 16:02 | PDOC PROGRESS REPORT ---
Subjective Progress Note for:: 12/31/16 Subjective:: Patient had acute episode of shortness of breath today. This improved with Lasix. Nursing reports the patient continues to be confused and attempts to get out of bed. Patient denies chest pain, abdominal pain, nausea, vomiting, fevers, chills, diarrhea, constipation, headache, new onset weakness. Physical Exam Vital Signs: Temp Pulse Resp BP Pulse Ox 99.2 F 89 18 165/90 H 96 12/31/16 12:00 12/31/16 14:00 12/31/16 14:00 12/31/16 12:00 12/31/16 12:00 Intake & Output 12/30/16 12/31/16 01/01/17 06:59 06:59 06:59 Intake Total 3122 3199 Output Total 1240 1350 Balance 1882 1849 Weight 54.2 kg 51.9 kg Exam: General: Awake, alert, and oriented 2, mild respiratory distress HEENT: AT/NC, PERRL, oropharynx is moist, pink, no scleral icterus, no conjunctival injection Neck: + JVD, trachea midline Chest: Bilateral rhonchi and bilateral rales CV: Tachycardic, Regular rate and rhythm, normal S1 and S2, no murmur, rub, or gallop Abdomen: Soft, nontender to palpation, mildly distended, active bowel sounds; no rebound, rigidity, guarding, midline incision well-healing Extremities: No cyanosis; trace edema; mild clubbing Neuro: Cranial nerves grossly intact without focal deficit Psych: Normal mood and affect Results Laboratory Results: 12/31/16 04:21 12/31/16 04:21 12/31/16 12/31/16 04:21 04:21 WBC 15.4 H RBC 2.80 L Hgb 8.1 L Hct 24.8 L MCV 89 MCH 28.8 MCHC 32.6 RDW 13.4 Plt Count 584 H Seg Neutrophils % 76.8 Lymphocytes % 11.0 L Monocytes % 9.9 Eosinophils % 1.2 Basophils % 1.1 Absolute Neutrophils 11.8 H Absolute Lymphocytes 1.7 Absolute Monocytes 1.5 H Absolute Eosinophils 0.2 Absolute Basophils 0.2 Sodium 138.7 Potassium 3.7 Chloride 106 Carbon Dioxide 23 Anion Gap 10 BUN 10 Creatinine 1.23 Est GFR ( Amer) > 60 Est GFR (Non-Af Amer) > 60 Glucose 111 H Calcium 8.6 12/20/16 12/31/16 05:55 04:21 NT-Pro-B Natriuret Pep 490 6380 H Impressions: Acute Abdomen Series 12/18/16 16:33 IMPRESSION: NO RADIOGRAPHIC EVIDENCE FOR ACUTE ABDOMINAL DISEASE. Abdomen/Pelvis CT 12/18/16 18:45 IMPRESSION: 1. Bowel perforation. Free air and contrast within the abdomen. Based on the appearance, suspect proximal GI tract viscus perforation. Possibly duodenal or gastric ulcer or proximal small bowel. Pertinent findings on the imaging study reported as a CRITICAL RESULT to LUPE HERNANDEZ MD at21:54 on 12/18/2016. Category of Critical Result: Bowel perforation. Upper GI Series 12/23/16 08:00 IMPRESSION: No evidence of contrast extravasation at the site of the ulcer repair Chest X-Ray 12/31/16 00:00 IMPRESSION: 1. Interval removal of left subclavian central venous catheter and nasogastric tubes. 2. Interval worsening of the interstitial and airspace opacities noted throughout the lungs, predominantly in the mid and lower lung zones. Assessment & Plan - Diagnosis (1) Healthcare-associated pneumonia Is this a current diagnosis for this admission?: YesPlan: Place patient on cefepime and linezolid scheduled nebulized treatments and aggressive pulmonary toileting. Repeat chest x-ray in a.m. (2) Acute diastolic (congestive) heart failure Is this a current diagnosis for this admission?: YesPlan: Patient currently volume overloaded. Echocardiogram done on 12/20/2016 reveals a normal EF and grade 2 diastolic dysfunction. Patient on lisinopril will add Coreg and continue diuresis with Lasix. (3) Septic shock Is this a current diagnosis for this admission?: NoPlan: Patient currently greatly improved. Secondary to generalized peritonitis from acutely perforated duodenal ulcer. Patient completed 10 days of Zosyn. His antibiotic stopped. Feel the patient may be developing healthcare associated pneumonia. Patient mildly febrile with pulmonic infiltrates. Place patient on cefepime and linezolid. Patient had prior vancomycin usage with a high trough. (4) Acute perforated duodenal ulcer with hemorrhage Is this a current diagnosis for this admission?: YesPlan: Defer to surgical team for diagnosis and management of conditions associated with patient's acute perforation and subsequent peritonitis. (5) Acute respiratory failure following trauma and surgery Is this a current diagnosis for this admission?: YesPlan: Defer to Dr. weiner of pulmonary medicine for management of ventilator. Patient remains extubated. (6) Peritonitis (acute) generalized Is this a current diagnosis for this admission?: YesPlan: has completed 10 days of Zosyn. Current cultures are all negative. Will monitor patient clinically. (7) Leukopenia Qualifiers: Leukopenia type: unspecified Qualified Code(s): D72.819 - Decreased white blood cell count, unspecified Is this a current diagnosis for this admission?: Yes (8) Atherosclerosis of abdominal aorta Is this a current diagnosis for this admission?: Yes (9) Tobacco abuse Is this a current diagnosis for this admission?: YesPlan: We'll give nicotine patch once patient is awake (10) Hiatal hernia Is this a current diagnosis for this admission?: Yes (11) Hyponatremia Is this a current diagnosis for this admission?: No (12) Hypoalbuminemia Is this a current diagnosis for this admission?: Yes (13) COPD (chronic obstructive pulmonary disease) Qualifiers: COPD type: unspecified COPD Qualified Code(s): J44.9 - Chronic obstructive pulmonary disease, unspecified Is this a current diagnosis for this admission?: YesPlan: Patient likely has COPD due to his long history of smoking. Continue scheduled nebulized treatments. (14) protein calorie malnourishment Is this a current diagnosis for this admission?: Yes (15) DVT prophylaxis Is this a current diagnosis for this admission?: Yes (16) GI prophylaxis Is this a current diagnosis for this admission?: Yes (17) Hypomagnesemia Is this a current diagnosis for this admission?: Yes (18) Alcohol abuse Is this a current diagnosis for this admission?: YesPlan: Patient to be known alcohol abuser. On thiamine and folic acid. Continue to monitor for electrolyte abnormalities. (19) Ambulatory dysfunction Is this a current diagnosis for this admission?: YesPlan: Have place bed alarm. Have directed patient not get up without assistance. Will place that her. Patient is a fall risk as he has some confusion and is unaware that he is quite weak. Plan for inpatient rehabilitation. He is amenable to this. - Time Time Spent with patient: 25-34 minutes Medications reviewed and adjusted accordingly: Yes Anticipated discharge: Acute Rehab
[2016-12-31] MEDS: FUROSEMIDE 20 MG TABLET PO SCH (17:11)
--- NOTE | 2016-12-31 18:43 | PROGRESS NOTE E ---
Progress Note NAME: RAPHAEL BROWN : 1955 AGE: 61Y DATE: 12/31/2016 ROOM: 401 SUBJECTIVE: The patient is continuing to improve with regard to his laparotomy for perforated duodenal ulcer. However, he has had some episodes of shortness of breath and confusion treated with Lasix and has denied abdominal pain. OBJECTIVE: ABDOMEN: His abdomen is soft and nontender. His wounds are clean. [place] have been removed, and Steri-Strips have been applied. CHEST: The right subclavian catheter was removed, and there is some worsening of interstitial airspace opacities throughout the lung [place] predominantly in the lower lung zones. PLAN: The plan at this time is to continue medical management. He is having increased pulmonary therapy, and he seems to be tolerating his regular diet without difficulty. Placement efforts are in progress; however, the patient's progress may be slowed slightly by the infiltrates on his lungs. The patient is placed on cefepime and linezolid with further recommendations to follow, but again his post-surgical abdominal findings are quite benign and improving. DICTATING PHYSICIAN: FRANCES WATT M.D. [id number] PHY#: [id number] ID: [id number] JOB#: [id number] ACCT: [id number] cc:ROBERTO WATT M.D. >
[2016-12-31] MEDS: CEFEPIME 2 GM/D5W RTU 50 ML IV SCH (21:56)
[2016-12-31] MEDS: CARVEDILOL 6.25 MG TABLET PO SCH (21:56)
[2016-12-31] MEDS: LINEZOLID 300 ML IV SCH (23:19)
[2017-01-01] MEDS: IPRATROPIUM/ALBUTEROL 0.5-2.5 MG/3 ML AMPUL NEB SCH ×4 (01:41→20:10)
[2017-01-01] MEDS: OXYCODONE-ACETAMINOPHEN 5-325 MG TABLET PO PRN (02:12)
[2017-01-01] MEDS: LANSOPRAZOLE 30 MG TAB.RAP.DR PO SCH ×2 (06:19→16:08)
[2017-01-01] MEDS: ENOXAPARIN SODIUM INJ 40 MG/0.4 ML DISP.SYRIN SUBCUT SCH (08:39)
[2017-01-01] MEDS: MULTIVITAMIN TABLET PO SCH (09:57)
[2017-01-01] MEDS: THIAMINE HCL 100 MG TABLET PO SCH (09:58)
[2017-01-01] MEDS: FUROSEMIDE 20 MG TABLET PO SCH ×2 (09:58→17:26)
[2017-01-01] MEDS: LINEZOLID 300 ML IV SCH ×2 (09:58→22:18)
[2017-01-01] MEDS: CARVEDILOL 6.25 MG TABLET PO SCH ×2 (09:58→21:25)
[2017-01-01] MEDS: FOLIC ACID 1 MG TABLET PO SCH (09:58)
[2017-01-01] MEDS: LISINOPRIL 10 MG TABLET NG SCH (09:58)
[2017-01-01] MEDS: FLUTICASONE NASAL SPRAY 50 MCG/SPRY 120 SPRAY/16 GM NASL SCH ×2 (10:03→21:25)
[2017-01-01] MEDS: CEFEPIME HCL 2 GM in DEXTROSE 5%-WATER 50 ML IV SCH ×2 (10:06→21:25)
[2017-01-01] MEDS: CEFEPIME 2 GM/D5W RTU 50 ML IV SCH ×2 (10:07→21:26)
--- NOTE | 2017-01-01 10:53 | PROGRESS NOTE E ---
Progress Note NAME: RAPHAEL BROWN : 1955 AGE: 61Y DATE: 01/01/2017 ROOM: 401 The patient continues prolonged postoperative course after surgical repair of a perforated duodenal ulcer. His problems at this time are centered more around his pulmonary status and his mental status. He is being managed in this manner by the hospitalist service. Postsurgical changes are quite stable. I removed his Mauro-Lennon drain and his niles. His wound is clean. His abdomen is soft and nontender. He is tolerating diet. He has some blisters on his skin where Steri-Strips seem to have bothered him, but these are without evidence of infection and seem to be small water blisters which should resolve spontaneously. Placement arrangements are in progress for rehabilitation. DICTATING PHYSICIAN: FRANCES WATT M.D. [id number] PHY#: [id number] ID: [id number] JOB#: [id number] ACCT: [id number] cc: >
[2017-01-01] MEDS ORDERED: LOPERAMIDE HCL 2 MG CAPSULE PO ONE (16:00)
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
[2017-01-01 21:42] LABS: ABSOLUTE BASOPHILS # (AUTO) 0.1 10^3/uL (0.0-0.2); ABSOLUTE EOSINOPHILS # (AUTO) 0.3 10^3/uL (0.0-0.6); ABSOLUTE LYMPHOCYTES (AUTO) 1.8 10^3/uL (0.5-4.7); ABSOLUTE MONOCYTES (AUTO) 1.9 10^3/uL (0.1-1.4); ABSOLUTE NEUT (AUTO) 8.7 10^3/uL (1.7-8.2); BASOPHILS % (AUTO) 0.4 % (0-2); HEMATOCRIT 23.2 % (37.9-51.0); HEMOGLOBIN 8.1 g/dL (13.5-17.0); HGB HCT DIFFERENCE 1.1; LYMPHOCYTES % (AUTO) 14.3 % (13-45); MEAN CORPUSCULAR HEMOGLOBIN 30.1 pg (27.0-33.4); MEAN CORPUSCULAR HGB CONC 34.8 g/dL (32.0-36.0); MEAN CORPUSCULAR VOLUME 87 fl (80-97); RED BLOOD COUNT 2.68 10^6/uL (4.35-5.55); RED CELL DISTRIBUTION WIDTH 13.3 % (11.5-14.0); SEGMENTED NEUTROPHILS % (AUTO) 68.3 % (42-78); WHITE BLOOD COUNT 12.8 10^3/uL (4.0-10.5)
[2017-01-01 21:45] LABS: ANION GAP 11 (5-19); BLOOD UREA NITROGEN 14 mg/dL (7-20); CALCIUM 8.7 mg/dL (8.4-10.2); CARBON DIOXIDE 25 mmol/L (22-30); CHLORIDE 98 mmol/L (98-107); CREATININE RESULT 1.24 mg/dL (0.52-1.25); GLUCOSE 94 mg/dL (75-110); POTASSIUM 3.1 mmol/L (3.6-5.0); SODIUM 133.6 mmol/L (137-145)
[2017-01-02] MEDS: IPRATROPIUM/ALBUTEROL 0.5-2.5 MG/3 ML AMPUL NEB SCH ×4 (02:13→20:18)
[2017-01-02 05:21] LABS: ABSOLUTE BASOPHILS # (AUTO) 0.2 10^3/uL (0.0-0.2); ABSOLUTE EOSINOPHILS # (AUTO) 0.3 10^3/uL (0.0-0.6); ABSOLUTE LYMPHOCYTES (AUTO) 1.9 10^3/uL (0.5-4.7); ABSOLUTE MONOCYTES (AUTO) 1.7 10^3/uL (0.1-1.4); ABSOLUTE NEUT (AUTO) 8.1 10^3/uL (1.7-8.2); BASOPHILS % (AUTO) 1.3 % (0-2); EOSINOPHILS % (AUTO) 2.3 % (0-6); HEMATOCRIT 25.1 % (37.9-51.0); HEMOGLOBIN 8.5 g/dL (13.5-17.0); HGB HCT DIFFERENCE 0.4; LYMPHOCYTES % (AUTO) 15.6 % (13-45); MEAN CORPUSCULAR HEMOGLOBIN 29.3 pg (27.0-33.4); MEAN CORPUSCULAR HGB CONC 33.6 g/dL (32.0-36.0); MEAN CORPUSCULAR VOLUME 87 fl (80-97); RED BLOOD COUNT 2.89 10^6/uL (4.35-5.55); RED CELL DISTRIBUTION WIDTH 13.3 % (11.5-14.0); SEGMENTED NEUTROPHILS % (AUTO) 66.8 % (42-78); WHITE BLOOD COUNT 12.1 10^3/uL (4.0-10.5)
[2017-01-02 05:40] LABS: ANION GAP 11 (5-19); BLOOD UREA NITROGEN 12 mg/dL (7-20); CALCIUM 9.1 mg/dL (8.4-10.2); CARBON DIOXIDE 28 mmol/L (22-30); CHLORIDE 98 mmol/L (98-107); CREATININE RESULT 1.34 mg/dL (0.52-1.25); GLUCOSE 100 mg/dL (75-110); MAGNESIUM 1.7 mg/dL (1.6-2.3); SODIUM 137.2 mmol/L (137-145)
[2017-01-02 05:48] LABS: POTASSIUM 2.9 mmol/L (3.6-5.0)
[2017-01-02] MEDS: LANSOPRAZOLE 30 MG TAB.RAP.DR PO SCH ×2 (06:43→17:38)
[2017-01-02] MEDS: POTASSIUM CHLORIDE 20 MEQ/50 ML RTU IV SCH ×2 (06:43→08:37)
[2017-01-02] MEDS ORDERED: POTASSIUM CHLORIDE 10 MEQ TABLET.SA PO ONE ×3 (07:00→22:18)
[2017-01-02] MEDS: ENOXAPARIN SODIUM INJ 40 MG/0.4 ML DISP.SYRIN SUBCUT SCH (08:48)
--- NOTE | 2017-01-02 10:02 | PDOC PROGRESS REPORT ---
Subjective Progress Note for:: 01/02/17 Subjective:: Patient is pleasantly confused. Tolerating regular diet Physical Exam Vital Signs: Temp Pulse Resp BP Pulse Ox 98.7 F 77 18 178/83 H 91 L 01/02/17 07:39 01/02/17 08:07 01/02/17 08:07 01/02/17 07:39 01/02/17 08:07 Intake & Output 01/01/17 01/02/17 01/03/17 06:59 06:59 06:59 Intake Total 1581 1540 Output Total 650 950 Balance 931 590 Weight 52.6 kg 51.4 kg Results Laboratory Results: 01/02/17 05:02 01/02/17 05:02 01/01/17 01/01/17 01/02/17 21:18 21:18 05:02 WBC 12.8 H 12.1 H RBC 2.68 L 2.89 L Hgb 8.1 L 8.5 L Hct 23.2 L 25.1 L MCV 87 87 MCH 30.1 29.3 MCHC 34.8 33.6 RDW 13.3 13.3 Plt Count 587 H 687 H Seg Neutrophils % 68.3 66.8 Lymphocytes % 14.3 15.6 Monocytes % 15.0 H 14.0 H Eosinophils % 2.0 2.3 Basophils % 0.4 1.3 Absolute Neutrophils 8.7 H 8.1 Absolute Lymphocytes 1.8 1.9 Absolute Monocytes 1.9 H 1.7 H Absolute Eosinophils 0.3 0.3 Absolute Basophils 0.1 0.2 Sodium 133.6 L Potassium 3.1 L Chloride 98 Carbon Dioxide 25 Anion Gap 11 BUN 14 Creatinine 1.24 Est GFR ( Amer) > 60 Est GFR (Non-Af Amer) 59 L Glucose 94 Calcium 8.7 Magnesium 01/02/17 05:02 WBC RBC Hgb Hct MCV MCH MCHC RDW Plt Count Seg Neutrophils % Lymphocytes % Monocytes % Eosinophils % Basophils % Absolute Neutrophils Absolute Lymphocytes Absolute Monocytes Absolute Eosinophils Absolute Basophils Sodium 137.2 Potassium 2.9 L* Chloride 98 Carbon Dioxide 28 Anion Gap 11 BUN 12 Creatinine 1.34 H Est GFR ( Amer) > 60 Est GFR (Non-Af Amer) 54 L Glucose 100 Calcium 9.1 Magnesium 1.7 12/20/16 12/31/16 05:55 04:21 NT-Pro-B Natriuret Pep 490 6380 H Impressions: Acute Abdomen Series 12/18/16 16:33 IMPRESSION: NO RADIOGRAPHIC EVIDENCE FOR ACUTE ABDOMINAL DISEASE. Abdomen/Pelvis CT 12/18/16 18:45 IMPRESSION: 1. Bowel perforation. Free air and contrast within the abdomen. Based on the appearance, suspect proximal GI tract viscus perforation. Possibly duodenal or gastric ulcer or proximal small bowel. Pertinent findings on the imaging study reported as a CRITICAL RESULT to LUPE HERNANDEZ MD at21:54 on 12/18/2016. Category of Critical Result: Bowel perforation. Upper GI Series 12/23/16 08:00 IMPRESSION: No evidence of contrast extravasation at the site of the ulcer repair Chest X-Ray 12/31/16 00:00 IMPRESSION: 1. Interval removal of left subclavian central venous catheter and nasogastric tubes. 2. Interval worsening of the interstitial and airspace opacities noted throughout the lungs, predominantly in the mid and lower lung zones. Head CT 01/01/17 00:00 IMPRESSION: Limited negative study. Motion artifact Assessment & Plan - Diagnosis (1) Perforated abdominal viscus Is this a current diagnosis for this admission?: YesPlan: 1. Patient is 2 weeks status post for further laparotomy, David patch closure of a perforated duodenal ulcer. He is on the floor, tolerating a diet and having bowel function. He is voiding. 2. Principal issues all of all mentation, deconditioning and prolonged need for intravenous antibiotics for lingering pneumonia. Internal medicine managing the antibiotic regimen. 3. We'll get discharge planning involved in anticipation of transfer to rehabilitation. 4. Hypokalemia being addressed with IV and oral replacement. (2) Alcohol abuse Is this a current diagnosis for this admission?: Yes (3) Abuse of smoked substance Is this a current diagnosis for this admission?: Yes (4) Smoker Is this a current diagnosis for this admission?: Yes (5) Atherosclerosis of abdominal aorta Is this a current diagnosis for this admission?: Yes
[2017-01-02] MEDS: LISINOPRIL 10 MG TABLET NG SCH (10:34)
[2017-01-02] MEDS: CARVEDILOL 6.25 MG TABLET PO SCH ×2 (10:35→21:32)
[2017-01-02] MEDS: THIAMINE HCL 100 MG TABLET PO SCH (10:35)
[2017-01-02] MEDS: FOLIC ACID 1 MG TABLET PO SCH (10:35)
[2017-01-02] MEDS: FUROSEMIDE 20 MG TABLET PO SCH ×2 (10:35→17:38)
[2017-01-02] MEDS: MULTIVITAMIN TABLET PO SCH (10:36)
[2017-01-02] MEDS: LINEZOLID 300 ML IV SCH ×2 (10:36→22:18)
[2017-01-02] MEDS: FLUTICASONE NASAL SPRAY 50 MCG/SPRY 120 SPRAY/16 GM NASL SCH ×2 (10:36→21:32)
[2017-01-02] MEDS ORDERED: MAGNESIUM SULFATE/D5W 100 ML IV SCH (11:30)
[2017-01-02] MEDS: CEFEPIME HCL 2 GM in DEXTROSE 5%-WATER 50 ML IV SCH ×2 (14:34→21:32)
[2017-01-02 20:59] LABS: ANION GAP 10 (5-19); BLOOD UREA NITROGEN 14 mg/dL (7-20); CALCIUM 8.5 mg/dL (8.4-10.2); CARBON DIOXIDE 26 mmol/L (22-30); CHLORIDE 99 mmol/L (98-107); CREATININE RESULT 1.25 mg/dL (0.52-1.25); GLUCOSE 135 mg/dL (75-110); POTASSIUM 3.4 mmol/L (3.6-5.0); SODIUM 134.7 mmol/L (137-145)
[2017-01-02] MEDS ORDERED: LOPERAMIDE HCL 2 MG CAPSULE PO PRN (22:18)
--- NOTE | 2017-01-02 22:22 | PDOC PROGRESS REPORT ---
Subjective Progress Note for:: 01/02/17 Subjective:: Patient seen earlier today on morning rounds. Discussed patient with PT and they report he is safe for home health physical therapy. Patient does report some loose stool. Patient denies chest pain, shortness of breath, abdominal pain, nausea, vomiting , fevers, chills, constipation, headache, new onset weakness. Physical Exam Vital Signs: Temp Pulse Resp BP Pulse Ox 98.1 F 82 18 159/78 H 96 01/02/17 19:54 01/02/17 20:20 01/02/17 20:20 01/02/17 19:54 01/02/17 19:54 Intake & Output 01/01/17 01/02/17 01/03/17 06:59 06:59 06:59 Intake Total 1581 1540 1340 Output Total 650 950 Balance 189 818 9508 Weight 52.6 kg 51.4 kg Exam: General: Awake, alert, and oriented 3, mild respiratory distress HEENT: AT/NC, PERRL, oropharynx is moist, pink, no scleral icterus, no conjunctival injection Neck: trachea midline Chest: Right-sided rhonchi greater than Left-sided, diminished bases bilaterally CV: Regular rate and rhythm, normal S1 and S2, no murmur, rub, or gallop Abdomen: Soft, nontender to palpation, mildly distended, active bowel sounds; no rebound, rigidity, guarding, midline incision well-healing, Extremities: No cyanosis; trace edema; mild clubbing Neuro: Cranial nerves grossly intact without focal deficit Psych: Normal mood and affect Results Laboratory Results: 01/02/17 05:02 01/02/17 13:15 01/02/17 01/02/17 01/02/17 05:02 05:02 13:15 WBC 12.1 H RBC 2.89 L Hgb 8.5 L Hct 25.1 L MCV 87 MCH 29.3 MCHC 33.6 RDW 13.3 Plt Count 687 H Seg Neutrophils % 66.8 Lymphocytes % 15.6 Monocytes % 14.0 H Eosinophils % 2.3 Basophils % 1.3 Absolute Neutrophils 8.1 Absolute Lymphocytes 1.9 Absolute Monocytes 1.7 H Absolute Eosinophils 0.3 Absolute Basophils 0.2 Sodium 137.2 Potassium 2.9 L* Chloride 98 Carbon Dioxide 28 Anion Gap 11 BUN 12 Creatinine 1.34 H Est GFR ( Amer) > 60 Est GFR (Non-Af Amer) 54 L Glucose 100 Calcium 9.1 Magnesium 1.7 1.7 01/02/17 13:15 WBC RBC Hgb Hct MCV MCH MCHC RDW Plt Count Seg Neutrophils % Lymphocytes % Monocytes % Eosinophils % Basophils % Absolute Neutrophils Absolute Lymphocytes Absolute Monocytes Absolute Eosinophils Absolute Basophils Sodium 134.7 L Potassium 3.4 L Chloride 99 Carbon Dioxide 26 Anion Gap 10 BUN 14 Creatinine 1.25 Est GFR ( Amer) > 60 Est GFR (Non-Af Amer) 59 L Glucose 135 H Calcium 8.5 Magnesium 12/20/16 12/31/16 05:55 04:21 NT-Pro-B Natriuret Pep 490 6380 H Impressions: Acute Abdomen Series 12/18/16 16:33 IMPRESSION: NO RADIOGRAPHIC EVIDENCE FOR ACUTE ABDOMINAL DISEASE. Abdomen/Pelvis CT 12/18/16 18:45 IMPRESSION: 1. Bowel perforation. Free air and contrast within the abdomen. Based on the appearance, suspect proximal GI tract viscus perforation. Possibly duodenal or gastric ulcer or proximal small bowel. Pertinent findings on the imaging study reported as a CRITICAL RESULT to LUPE HERNANDEZ MD at21:54 on 12/18/2016. Category of Critical Result: Bowel perforation. Upper GI Series 12/23/16 08:00 IMPRESSION: No evidence of contrast extravasation at the site of the ulcer repair Chest X-Ray 12/31/16 00:00 IMPRESSION: 1. Interval removal of left subclavian central venous catheter and nasogastric tubes. 2. Interval worsening of the interstitial and airspace opacities noted throughout the lungs, predominantly in the mid and lower lung zones. Head CT 01/01/17 00:00 IMPRESSION: Limited negative study. Motion artifact Assessment & Plan - Diagnosis (1) Healthcare-associated pneumonia Is this a current diagnosis for this admission?: YesPlan: Place patient on cefepime and linezolid scheduled nebulized treatments and aggressive pulmonary toileting. Pending sputum culture. Prior sputum cultures reveal normal eugenia absent but with candidate. (2) Acute diastolic (congestive) heart failure Is this a current diagnosis for this admission?: YesPlan: Patient currently euvolemic Echocardiogram done on 12/20/2016 reveals a normal EF and grade 2 diastolic dysfunction. Patient on lisinopril, Coreg and continue diuresis with Lasix. (3) Septic shock Is this a current diagnosis for this admission?: NoPlan: Now resolved. Patient currently greatly improved. Secondary to generalized peritonitis from acutely perforated duodenal ulcer. Patient completed 10 days of Zosyn. His antibiotic stopped. Feel the patient may be developing healthcare associated pneumonia. Patient mildly febrile with pulmonic infiltrates. Place patient on cefepime and linezolid. Patient had prior vancomycin usage with a high trough. (4) Acute perforated duodenal ulcer with hemorrhage Is this a current diagnosis for this admission?: YesPlan: Defer to surgical team for diagnosis and management of conditions associated with patient's acute perforation and subsequent peritonitis. Case was discussed with Dr. Vera of surgery. (5) Acute respiratory failure following trauma and surgery Is this a current diagnosis for this admission?: YesPlan: Defer to Dr. weiner of pulmonary medicine for management of ventilator. Patient remains extubated. (6) Peritonitis (acute) generalized Is this a current diagnosis for this admission?: Yes (7) Leukopenia Qualifiers: Leukopenia type: unspecified Qualified Code(s): D72.819 - Decreased white blood cell count, unspecified Is this a current diagnosis for this admission?: Yes (8) Atherosclerosis of abdominal aorta Is this a current diagnosis for this admission?: Yes (9) Tobacco abuse Is this a current diagnosis for this admission?: Yes (10) Hiatal hernia Is this a current diagnosis for this admission?: Yes (11) Hyponatremia Is this a current diagnosis for this admission?: No (12) Hypoalbuminemia Is this a current diagnosis for this admission?: Yes (13) COPD (chronic obstructive pulmonary disease) Qualifiers: COPD type: unspecified COPD Qualified Code(s): J44.9 - Chronic obstructive pulmonary disease, unspecified Is this a current diagnosis for this admission?: Yes (14) protein calorie malnourishment Is this a current diagnosis for this admission?: Yes (15) DVT prophylaxis Is this a current diagnosis for this admission?: Yes (16) GI prophylaxis Is this a current diagnosis for this admission?: Yes (17) Hypomagnesemia Is this a current diagnosis for this admission?: Yes (18) Alcohol abuse Is this a current diagnosis for this admission?: Yes (19) Ambulatory dysfunction Is this a current diagnosis for this admission?: Yes (20) Hypokalemia Is this a current diagnosis for this admission?: YesPlan: Replete and recheck today. Likely secondary to diarrhea - Time Time Spent with patient: 25-34 minutes Medications reviewed and adjusted accordingly: Yes
[2017-01-03] MEDS: IPRATROPIUM/ALBUTEROL 0.5-2.5 MG/3 ML AMPUL NEB SCH ×2 (02:51→08:02)
[2017-01-03] MEDS: LANSOPRAZOLE 30 MG TAB.RAP.DR PO SCH ×2 (05:07→18:16)
[2017-01-03 05:31] LABS: ABSOLUTE BASOPHILS # (AUTO) 0.3 10^3/uL (0.0-0.2); ABSOLUTE EOSINOPHILS # (AUTO) 0.3 10^3/uL (0.0-0.6); ABSOLUTE LYMPHOCYTES (AUTO) 1.6 10^3/uL (0.5-4.7); ABSOLUTE MONOCYTES (AUTO) 1.4 10^3/uL (0.1-1.4); ABSOLUTE NEUT (AUTO) 7.6 10^3/uL (1.7-8.2); BASOPHILS % (AUTO) 2.9 % (0-2); EOSINOPHILS % (AUTO) 2.6 % (0-6); HEMATOCRIT 22.7 % (37.9-51.0); HGB HCT DIFFERENCE 0.1; LYMPHOCYTES % (AUTO) 14.6 % (13-45); MEAN CORPUSCULAR HEMOGLOBIN 29.2 pg (27.0-33.4); MEAN CORPUSCULAR HGB CONC 33.6 g/dL (32.0-36.0); MEAN CORPUSCULAR VOLUME 87 fl (80-97); MONOCYTES % (AUTO) 12.7 % (3-13); RED BLOOD COUNT 2.61 10^6/uL (4.35-5.55); RED CELL DISTRIBUTION WIDTH 13.3 % (11.5-14.0); SEGMENTED NEUTROPHILS % (AUTO) 67.2 % (42-78); WHITE BLOOD COUNT 11.2 10^3/uL (4.0-10.5)
[2017-01-03 05:37] LABS: HEMOGLOBIN 7.6 g/dL (13.5-17.0)
[2017-01-03 05:54] LABS: ANION GAP 10 (5-19); BLOOD UREA NITROGEN 12 mg/dL (7-20); CALCIUM 8.5 mg/dL (8.4-10.2); CARBON DIOXIDE 24 mmol/L (22-30); CHLORIDE 98 mmol/L (98-107); CREATININE RESULT 1.19 mg/dL (0.52-1.25); GLUCOSE 100 mg/dL (75-110); MAGNESIUM 1.8 mg/dL (1.6-2.3); POTASSIUM 3.9 mmol/L (3.6-5.0); SODIUM 132.4 mmol/L (137-145)
[2017-01-03] MEDS: ENOXAPARIN SODIUM INJ 40 MG/0.4 ML DISP.SYRIN SUBCUT SCH (07:54)
[2017-01-03] MEDS: HYDRALAZINE HCL INJ/PF 20 MG/1 ML SDV IV PRN (07:54)
[2017-01-03] MEDS ORDERED: NORMAL SALINE 250 ML IV PRN ×2 (08:16)
[2017-01-03] MEDS ORDERED: ALBUTEROL SULFATE 0.083% NEB 2.5 MG/3 ML AMPUL NEB PRN (08:19)
--- NOTE | 2017-01-03 09:24 | PDOC PROGRESS REPORT ---
Subjective Progress Note for:: 01/03/17 Subjective:: Patient has no specific complaints. He denies any abdominal pain or any pain at all. He denies shortness of breath. He denies fevers or chills. Patient denies fever, chills, headache, new focal weakness, chest pain, shortness of breath, abdominal pain, nausea, vomiting, diarrhea, constipation. Physical Exam Vital Signs: Temp Pulse Resp BP Pulse Ox 98.4 F 86 16 181/85 H 97 01/03/17 07:44 01/03/17 08:00 01/03/17 08:00 01/03/17 07:44 01/03/17 08:00 Intake & Output 01/02/17 01/03/17 01/04/17 06:59 06:59 06:59 Intake Total 1540 2570 Output Total 950 200 Balance 590 2370 Weight 51.4 kg 51.5 kg GENERAL: No acute distress HEENT: Conjunctiva clear, nonicteric, moist mucous membranes, no JVD, midline trachea RESPIRATORY: Clear to auscultation bilaterally, no wheezes, no rhonchi CARDIAC: Regular rate and rhythm, no murmurs/gallops/rubs ABDOMEN: Soft, nondistended, nontender, positive bowel sounds, no rebound, no guarding EXTREMETIES: No edema, cyanosis, clubbing NEUROLOGIC: Alert, oriented to person/place/time, CN's grossly intact, no focal deficits SKIN: Abdominal incision healed well with no signs of infection, patient has multiple bullous lesions noted in the area of distribution of prior bandages likely related to adhesive allergy PSYCH: Normal mood, normal affect Results Laboratory Results: 01/03/17 04:17 01/03/17 04:17 01/02/17 01/02/17 01/03/17 13:15 13:15 04:17 WBC 11.2 H RBC 2.61 L Hgb 7.6 L Hct 22.7 L MCV 87 MCH 29.2 MCHC 33.6 RDW 13.3 Plt Count 627 H Seg Neutrophils % 67.2 Lymphocytes % 14.6 Monocytes % 12.7 Eosinophils % 2.6 Basophils % 2.9 H Absolute Neutrophils 7.6 Absolute Lymphocytes 1.6 Absolute Monocytes 1.4 Absolute Eosinophils 0.3 Absolute Basophils 0.3 H Sodium 134.7 L Potassium 3.4 L Chloride 99 Carbon Dioxide 26 Anion Gap 10 BUN 14 Creatinine 1.25 Est GFR ( Amer) > 60 Est GFR (Non-Af Amer) 59 L Glucose 135 H Calcium 8.5 Magnesium 1.7 01/03/17 04:17 WBC RBC Hgb Hct MCV MCH MCHC RDW Plt Count Seg Neutrophils % Lymphocytes % Monocytes % Eosinophils % Basophils % Absolute Neutrophils Absolute Lymphocytes Absolute Monocytes Absolute Eosinophils Absolute Basophils Sodium 132.4 L Potassium 3.9 Chloride 98 Carbon Dioxide 24 Anion Gap 10 BUN 12 Creatinine 1.19 Est GFR ( Amer) > 60 Est GFR (Non-Af Amer) > 60 Glucose 100 Calcium 8.5 Magnesium 1.8 12/20/16 12/31/16 05:55 04:21 NT-Pro-B Natriuret Pep 490 6380 H Impressions: Acute Abdomen Series 12/18/16 16:33 IMPRESSION: NO RADIOGRAPHIC EVIDENCE FOR ACUTE ABDOMINAL DISEASE. Abdomen/Pelvis CT 12/18/16 18:45 IMPRESSION: 1. Bowel perforation. Free air and contrast within the abdomen. Based on the appearance, suspect proximal GI tract viscus perforation. Possibly duodenal or gastric ulcer or proximal small bowel. Pertinent findings on the imaging study reported as a CRITICAL RESULT to LUPE HERNANDEZ MD at21:54 on 12/18/2016. Category of Critical Result: Bowel perforation. Upper GI Series 12/23/16 08:00 IMPRESSION: No evidence of contrast extravasation at the site of the ulcer repair Chest X-Ray 12/31/16 00:00 IMPRESSION: 1. Interval removal of left subclavian central venous catheter and nasogastric tubes. 2. Interval worsening of the interstitial and airspace opacities noted throughout the lungs, predominantly in the mid and lower lung zones. Head CT 01/01/17 00:00 IMPRESSION: Limited negative study. Motion artifact Assessment & Plan - Diagnosis (1) Acute respiratory failure following trauma and surgery Is this a current diagnosis for this admission?: YesPlan: Now stable on 2 L nasal cannula oxygen. Patient does not require home oxygen prior to admission. He has smoked for 30 years. We will see if he needs home oxygen at time of discharge. (2) Acute perforated duodenal ulcer with hemorrhage Is this a current diagnosis for this admission?: YesPlan: Status post exploratory laparotomy and repair by surgery 12/19/2016. Surgery managing. (3) Septic shock Is this a current diagnosis for this admission?: YesPlan: Secondary to peritonitis. Now resolved. (4) Pneumonia Is this a current diagnosis for this admission?: YesPlan: Cultures negative. Discontinue IV cefepime and Zyvox. Start oral Levaquin. (5) Peritonitis (acute) generalized Is this a current diagnosis for this admission?: YesPlan: Patient completed 10 days of IV antibiotics. (6) COPD (chronic obstructive pulmonary disease) Qualifiers: COPD type: unspecified COPD Qualified Code(s): J44.9 - Chronic obstructive pulmonary disease, unspecified Is this a current diagnosis for this admission?: YesPlan: Discontinue scheduled duo nebs. When necessary albuterol. (7) Hypoalbuminemia Is this a current diagnosis for this admission?: Yes (8) Hypocalcemia Is this a current diagnosis for this admission?: No (9) Hyponatremia Is this a current diagnosis for this admission?: No (10) protein calorie malnourishment Is this a current diagnosis for this admission?: Yes (11) Anemia Qualifiers: Other causes of anemia: acute posthemorrhagic Is this a current diagnosis for this admission?: YesPlan: Likely secondary to acute blood loss associated with peptic ulcer disease. Transfuse 1 unit of blood. Start iron supplementation. (12) Alcohol abuse Is this a current diagnosis for this admission?: Yes (13) Tobacco abuse Is this a current diagnosis for this admission?: Yes (14) Hypokalemia Is this a current diagnosis for this admission?: YesPlan: Corrected. (15) Ambulatory dysfunction Is this a current diagnosis for this admission?: YesPlan: Continue physical therapy. Patient will require home PT upon discharge. - Time Time Spent with patient: 35 or more minutes Anticipated discharge: Home with Homehealth Within: within 72 hours
[2017-01-03] MEDS: FUROSEMIDE 20 MG TABLET PO SCH ×2 (10:15→18:16)
[2017-01-03] MEDS: LEVOFLOXACIN 750 MG TABLET PO SCH (10:15)
[2017-01-03] MEDS: FOLIC ACID 1 MG TABLET PO SCH (10:16)
[2017-01-03] MEDS: MULTIVITAMIN TABLET PO SCH (10:16)
[2017-01-03] MEDS: FERROUS SULFATE 325 MG TABLET PO SCH (10:16)
[2017-01-03] MEDS: LISINOPRIL 10 MG TABLET NG SCH (10:16)
[2017-01-03] MEDS: CARVEDILOL 12.5 MG TABLET PO SCH ×2 (10:16→21:20)
[2017-01-03] MEDS: THIAMINE HCL 100 MG TABLET PO SCH (10:16)
[2017-01-03] MEDS: FLUTICASONE NASAL SPRAY 50 MCG/SPRY 120 SPRAY/16 GM NASL SCH ×2 (10:17→21:20)
--- NOTE | 2017-01-03 12:33 | PROGRESS NOTE E ---
Progress Note NAME: RAPHAEL BROWN : 1955 AGE: 61Y DATE: 01/03/2017 ROOM: 401 Patient status post David patch for perforated peptic ulcer disease postoperative day 14. SUBJECTIVE: The patient is not complaining of any abdominal pain, nausea, vomiting, or diarrhea at the current time. OBJECTIVE: VITAL SIGNS: Blood pressure 181/85, temperature is 98.4, pulse is 86. ABDOMEN: Soft, nontender. Midline incision is healed. No evidence of hernia. ASSESSMENT: 1. HISTORY OF PERFORATED PEPTIC ULCER DISEASE STATUS POST DAVID PATCH PLACEMENT 2 WEEKS AGO IN THE UPPER GI, WHICH DID NOT SHOW ANY LEAKS AND THEREFORE WAS STARTED ON LIQUID DIET AND ADVANCED TO REGULAR, WHICH HE IS TOLERATING AT THE CURRENT TIME. He is currently on PPI. It is unknown whether the perforation was due to medical issues versus H. pylori. I would recommend getting titers to see if he currently or has a history of H. pylori disease and treat it appropriately. 2. RESPIRATORY INFECTION. Currently on oral antibiotics, followed by Medicine. 3. ANEMIA WITH HEMOGLOBIN SLOWLY DECREASING FROM 9 TO 7.6. He is being transfused at the current time. Recommend stopping Lovenox and placement of SCDs. If he continues to have decreasing hemoglobin, he may need an upper endoscopy to evaluate. He currently is on PPIs. 4. RESPIRATORY. Currently on oral antibiotics. 5. WEAKNESS SECONDARY TO MEDICAL ISSUES AND RECENT SURGERY. Physical therapy is working with patient. PLAN: 1. Transfusion. 2. Follow H and H. 3. PPI. 4. Check serology for H. pylori. 5. Physical therapy. 6. Placement at [facility]. DICTATING PHYSICIAN: SINA COLVIN M.D. [id number] PHY#: [id number] ID: [id number] JOB#: [id number] ACCT: [id number] cc: >
[2017-01-03 17:42] LABS: ABSOLUTE BASOPHILS # (AUTO) 0.2 10^3/uL (0.0-0.2); ABSOLUTE EOSINOPHILS # (AUTO) 0.3 10^3/uL (0.0-0.6); ABSOLUTE LYMPHOCYTES (AUTO) 1.5 10^3/uL (0.5-4.7); ABSOLUTE MONOCYTES (AUTO) 1.3 10^3/uL (0.1-1.4); ABSOLUTE NEUT (AUTO) 6.3 10^3/uL (1.7-8.2); BASOPHILS % (AUTO) 2.4 % (0-2); HEMATOCRIT 28.1 % (37.9-51.0); LYMPHOCYTES % (AUTO) 15.8 % (13-45); MEAN CORPUSCULAR HGB CONC 34.7 g/dL (32.0-36.0); MEAN CORPUSCULAR VOLUME 87 fl (80-97); MONOCYTES % (AUTO) 13.4 % (3-13); RED BLOOD COUNT 3.24 10^6/uL (4.35-5.55); RED CELL DISTRIBUTION WIDTH 13.1 % (11.5-14.0); SEGMENTED NEUTROPHILS % (AUTO) 65.4 % (42-78); WHITE BLOOD COUNT 9.7 10^3/uL (4.0-10.5)
[2017-01-03 17:47] LABS: HEMOGLOBIN 9.7 g/dL (13.5-17.0)
[2017-01-04] MEDS: LANSOPRAZOLE 30 MG TAB.RAP.DR PO SCH ×2 (05:43→16:49)
[2017-01-04 06:21] LABS: ABSOLUTE EOSINOPHILS # (AUTO) 0.3 10^3/uL (0.0-0.6); ABSOLUTE LYMPHOCYTES (AUTO) 1.6 10^3/uL (0.5-4.7); ABSOLUTE MONOCYTES (AUTO) 1.4 10^3/uL (0.1-1.4); ABSOLUTE NEUT (AUTO) 6.4 10^3/uL (1.7-8.2); BASOPHILS % (AUTO) 0.2 % (0-2); EOSINOPHILS % (AUTO) 2.9 % (0-6); HEMATOCRIT 26.4 % (37.9-51.0); HEMOGLOBIN 9.3 g/dL (13.5-17.0); HGB HCT DIFFERENCE 1.5; LYMPHOCYTES % (AUTO) 16.5 % (13-45); MEAN CORPUSCULAR HEMOGLOBIN 30.3 pg (27.0-33.4); MEAN CORPUSCULAR HGB CONC 35.1 g/dL (32.0-36.0); MEAN CORPUSCULAR VOLUME 86 fl (80-97); RED BLOOD COUNT 3.06 10^6/uL (4.35-5.55); RED CELL DISTRIBUTION WIDTH 13.3 % (11.5-14.0); SEGMENTED NEUTROPHILS % (AUTO) 66.4 % (42-78); WHITE BLOOD COUNT 9.7 10^3/uL (4.0-10.5)
[2017-01-04 06:42] LABS: ANION GAP 13 (5-19); BLOOD UREA NITROGEN 9 mg/dL (7-20); CALCIUM 8.9 mg/dL (8.4-10.2); CARBON DIOXIDE 24 mmol/L (22-30); CHLORIDE 96 mmol/L (98-107); CREATININE RESULT 1.12 mg/dL (0.52-1.25); GLUCOSE 81 mg/dL (75-110); POTASSIUM 3.4 mmol/L (3.6-5.0)
[2017-01-04] MEDS: LISINOPRIL 10 MG TABLET NG SCH (09:59)
[2017-01-04] MEDS: POTASSIUM CHLORIDE 10 MEQ TABLET.SA PO SCH ×2 (09:59→21:17)
[2017-01-04] MEDS: FOLIC ACID 1 MG TABLET PO SCH (10:00)
[2017-01-04] MEDS: THIAMINE HCL 100 MG TABLET PO SCH (10:00)
[2017-01-04] MEDS: FERROUS SULFATE 325 MG TABLET PO SCH (10:00)
[2017-01-04] MEDS: CARVEDILOL 12.5 MG TABLET PO SCH ×2 (10:00→21:17)
[2017-01-04] MEDS: LEVOFLOXACIN 750 MG TABLET PO SCH (10:00)
[2017-01-04] MEDS: FUROSEMIDE 20 MG TABLET PO SCH (10:00)
[2017-01-04] MEDS: FLUTICASONE NASAL SPRAY 50 MCG/SPRY 120 SPRAY/16 GM NASL SCH ×2 (10:01→21:17)
[2017-01-04] MEDS: MULTIVITAMIN TABLET PO SCH (10:01)
--- NOTE | 2017-01-04 12:23 | PROGRESS NOTE E ---
Progress Note NAME: RAPHAEL BROWN : 1955 AGE: 61Y DATE: 01/04/2017 ROOM: 401 SUBJECTIVE: The patient is approximately 15 days out from a David patch for perforated duodenal ulcer along with being treated for pneumonia. Patient denies any complaints of abdominal pain. He has normal color bowel movement that is soft. Denies seeing any blood or black stool being present. OBJECTIVE: ABDOMEN: Soft, nontender. DIAGNOSTIC DATA: Hemoglobin 9.3 after transfusion. ASSESSMENT: 1. STATUS POST REPAIR OF PERFORATED DUODENAL ULCER WITH OMENTAL PATCH POSTOPERATIVE DAY 15. He is tolerating his diet. His abdominal incision is completely healed. He continues on his proton pump inhibitor. H. pylori was done and waiting for the results. The biopsy was duodenum and did not have much tissue to make diagnosis of H. pylori infection. 2. ANEMIA. Hemoglobin decreasing down to 7.6. Now it is currently 9.3 after transfusion. No obvious source of bleeding. If he continues to decrease, then I would recommend consideration for upper endoscopy to rule out continued ulcer as a source of his anemia. 3. PNEUMONIA BEING FOLLOWED BY HOSPITALIST. PLAN: 1. Follow H and H. 2. Placement once stable. 3. Continue proton pump inhibitor. 4. Check H. pylori serology. Although it does not signify any current infection, this is the only way to evaluate for H. pylori outside of EGD with biopsy. Stool studies are not accurate since he currently is on proton pump inhibitor. DICTATING PHYSICIAN: SINA COLVIN M.D. [id number] PHY#: [id number] ID: [id number] JOB#: [id number] ACCT: [id number] cc: >
[2017-01-04] MEDS: HYDRALAZINE HCL INJ/PF 20 MG/1 ML SDV IV PRN (16:49)
--- NOTE | 2017-01-04 18:58 | PDOC PROGRESS REPORT ---
Subjective Progress Note for:: 01/04/17 Subjective:: Patient has no specific complaints. He denies any abdominal pain or any pain at all. He denies shortness of breath. He denies fevers or chills. Patient denies fever, chills, headache, new focal weakness, chest pain, shortness of breath, abdominal pain, nausea, vomiting, diarrhea, constipation. Physical Exam Vital Signs: Temp Pulse Resp BP Pulse Ox 98.2 F 76 18 188/88 H 94 01/04/17 15:08 01/04/17 15:08 01/04/17 15:08 01/04/17 15:08 01/04/17 15:08 Intake & Output 01/03/17 01/04/17 01/05/17 06:59 06:59 06:59 Intake Total 2570 1780 1261 Output Total 200 Balance 2370 1780 1261 Weight 51.5 kg 51.8 kg GENERAL: No acute distress HEENT: Conjunctiva clear, nonicteric, moist mucous membranes, no JVD, midline trachea RESPIRATORY: Clear to auscultation bilaterally, no wheezes, no rhonchi CARDIAC: Regular rate and rhythm, no murmurs/gallops/rubs ABDOMEN: Soft, nondistended, nontender, positive bowel sounds, no rebound, no guarding EXTREMETIES: No edema, cyanosis, clubbing NEUROLOGIC: Alert, oriented to person/place/time, CN's grossly intact, no focal deficits SKIN: Abdominal incision healed well with no signs of infection, patient has multiple bullous lesions noted in the area of distribution of prior bandages likely related to adhesive allergy PSYCH: Normal mood, normal affect Results Laboratory Results: 01/04/17 05:34 01/04/17 05:34 01/04/17 01/04/17 05:34 05:34 WBC 9.7 RBC 3.06 L Hgb 9.3 L Hct 26.4 L MCV 86 MCH 30.3 MCHC 35.1 RDW 13.3 Plt Count 644 H Seg Neutrophils % 66.4 Lymphocytes % 16.5 Monocytes % 14.0 H Eosinophils % 2.9 Basophils % 0.2 Absolute Neutrophils 6.4 Absolute Lymphocytes 1.6 Absolute Monocytes 1.4 Absolute Eosinophils 0.3 Absolute Basophils 0.0 Sodium 133.0 L Potassium 3.4 L Chloride 96 L Carbon Dioxide 24 Anion Gap 13 BUN 9 Creatinine 1.12 Est GFR ( Amer) > 60 Est GFR (Non-Af Amer) > 60 Glucose 81 Calcium 8.9 12/20/16 12/31/16 01/04/17 05:55 04:21 05:34 NT-Pro-B Natriuret Pep 490 6380 H 2290 H Impressions: Acute Abdomen Series 12/18/16 16:33 IMPRESSION: NO RADIOGRAPHIC EVIDENCE FOR ACUTE ABDOMINAL DISEASE. Abdomen/Pelvis CT 12/18/16 18:45 IMPRESSION: 1. Bowel perforation. Free air and contrast within the abdomen. Based on the appearance, suspect proximal GI tract viscus perforation. Possibly duodenal or gastric ulcer or proximal small bowel. Pertinent findings on the imaging study reported as a CRITICAL RESULT to LUPE HERNANDEZ MD at21:54 on 12/18/2016. Category of Critical Result: Bowel perforation. Upper GI Series 12/23/16 08:00 IMPRESSION: No evidence of contrast extravasation at the site of the ulcer repair Chest X-Ray 12/31/16 00:00 IMPRESSION: 1. Interval removal of left subclavian central venous catheter and nasogastric tubes. 2. Interval worsening of the interstitial and airspace opacities noted throughout the lungs, predominantly in the mid and lower lung zones. Head CT 01/01/17 00:00 IMPRESSION: Limited negative study. Motion artifact Assessment & Plan - Diagnosis (1) Acute respiratory failure following trauma and surgery Is this a current diagnosis for this admission?: YesPlan: Now stable on 2 L nasal cannula oxygen. Patient does not require home oxygen prior to admission. He has smoked for 30 years. We will see if he needs home oxygen at time of discharge. (2) Acute perforated duodenal ulcer with hemorrhage Is this a current diagnosis for this admission?: YesPlan: Status post exploratory laparotomy and repair by surgery 12/19/2016. Surgery managing. (3) Septic shock Is this a current diagnosis for this admission?: YesPlan: Secondary to peritonitis. Now resolved. (4) Pneumonia Is this a current diagnosis for this admission?: YesPlan: Cultures negative. Continue oral Levaquin. (5) Peritonitis (acute) generalized Is this a current diagnosis for this admission?: YesPlan: Patient completed 10 days of IV antibiotics. (6) COPD (chronic obstructive pulmonary disease) Qualifiers: COPD type: unspecified COPD Qualified Code(s): J44.9 - Chronic obstructive pulmonary disease, unspecified Is this a current diagnosis for this admission?: YesPlan: When necessary albuterol. (7) Hypoalbuminemia Is this a current diagnosis for this admission?: YesPlan: Secondary to alcohol abuse and chronic malnutrition. (8) Hypocalcemia Is this a current diagnosis for this admission?: No (9) Hyponatremia Is this a current diagnosis for this admission?: No (10) protein calorie malnourishment Is this a current diagnosis for this admission?: Yes (11) Anemia Qualifiers: Other causes of anemia: acute posthemorrhagic Is this a current diagnosis for this admission?: YesPlan: Likely secondary to acute blood loss associated with peptic ulcer disease. Transfused 1 unit of blood. Continue iron supplementation. (12) Alcohol abuse Is this a current diagnosis for this admission?: Yes (13) Tobacco abuse Is this a current diagnosis for this admission?: Yes (14) Hypokalemia Is this a current diagnosis for this admission?: YesPlan: Replace. Follow-up labs. (15) Ambulatory dysfunction Is this a current diagnosis for this admission?: YesPlan: Continue physical therapy. Patient will require home PT upon discharge. (16) Diastolic CHF Qualifiers: Congestive heart failure chronicity: chronic Qualified Code(s): I50.32 - Chronic diastolic (congestive) heart failure Is this a current diagnosis for this admission?: YesPlan: Chronic, compensated. Continue Coreg. - Time Time Spent with patient: 35 or more minutes
[2017-01-04] MEDS: ACETAMINOPHEN SOLN 325 MG/10.15 ML UDCUP NG PRN (20:24)
[2017-01-05] MEDS: OXYCODONE-ACETAMINOPHEN 5-325 MG TABLET PO PRN ×2 (03:06→09:24)
[2017-01-05] MEDS: LANSOPRAZOLE 30 MG TAB.RAP.DR PO SCH (05:23)
[2017-01-05 06:04] LABS: ABSOLUTE BASOPHILS # (AUTO) 0.1 10^3/uL (0.0-0.2); ABSOLUTE EOSINOPHILS # (AUTO) 0.3 10^3/uL (0.0-0.6); ABSOLUTE LYMPHOCYTES (AUTO) 1.5 10^3/uL (0.5-4.7); ABSOLUTE MONOCYTES (AUTO) 1.5 10^3/uL (0.1-1.4); ABSOLUTE NEUT (AUTO) 5.1 10^3/uL (1.7-8.2); BASOPHILS % (AUTO) 1.1 % (0-2); EOSINOPHILS % (AUTO) 3.3 % (0-6); HEMATOCRIT 26.8 % (37.9-51.0); HEMOGLOBIN 9.5 g/dL (13.5-17.0); HGB HCT DIFFERENCE 1.7; LYMPHOCYTES % (AUTO) 18.2 % (13-45); MEAN CORPUSCULAR HEMOGLOBIN 30.3 pg (27.0-33.4); MEAN CORPUSCULAR HGB CONC 35.2 g/dL (32.0-36.0); MEAN CORPUSCULAR VOLUME 86 fl (80-97); MONOCYTES % (AUTO) 17.5 % (3-13); RED BLOOD COUNT 3.12 10^6/uL (4.35-5.55); RED CELL DISTRIBUTION WIDTH 13.3 % (11.5-14.0); SEGMENTED NEUTROPHILS % (AUTO) 59.9 % (42-78); WHITE BLOOD COUNT 8.5 10^3/uL (4.0-10.5)
[2017-01-05 06:17] LABS: ANION GAP 8 (5-19); BLOOD UREA NITROGEN 8 mg/dL (7-20); CALCIUM 9.2 mg/dL (8.4-10.2); CARBON DIOXIDE 29 mmol/L (22-30); CHLORIDE 98 mmol/L (98-107); CREATININE RESULT 1.01 mg/dL (0.52-1.25); GLUCOSE 100 mg/dL (75-110); POTASSIUM 3.6 mmol/L (3.6-5.0)
[2017-01-05] MEDS: LEVOFLOXACIN 750 MG TABLET PO SCH (09:13)
[2017-01-05] MEDS: FERROUS SULFATE 325 MG TABLET PO SCH (09:14)
[2017-01-05] MEDS: CARVEDILOL 12.5 MG TABLET PO SCH (09:14)
[2017-01-05] MEDS: FOLIC ACID 1 MG TABLET PO SCH (09:14)
[2017-01-05] MEDS: POTASSIUM CHLORIDE 10 MEQ TABLET.SA PO SCH (09:14)
[2017-01-05] MEDS: THIAMINE HCL 100 MG TABLET PO SCH (09:14)
[2017-01-05] MEDS: MULTIVITAMIN TABLET PO SCH (09:14)
[2017-01-05] MEDS: LISINOPRIL 10 MG TABLET NG SCH (09:15)
[2017-01-05] MEDS: FUROSEMIDE 20 MG TABLET PO SCH (09:15)
[2017-01-05] MEDS: FLUTICASONE NASAL SPRAY 50 MCG/SPRY 120 SPRAY/16 GM NASL SCH (09:16)
--- NOTE | 2017-01-05 12:52 | PDOC DISCHARGE SUMMARY ---
General - Admit/Disc Date/PCP Admission Date/Primary Care Provider: 12/18/16 22:18 [facility] in [facility] Discharge Date: 01/05/17 - Discharge Diagnosis (1) Acute perforated duodenal ulcer with hemorrhage Is this a current diagnosis for this admission?: Yes (2) Acute respiratory failure following trauma and surgery Is this a current diagnosis for this admission?: Yes (3) Septic shock Is this a current diagnosis for this admission?: Yes (4) Peritonitis (acute) generalized Is this a current diagnosis for this admission?: Yes (5) Pneumonia Is this a current diagnosis for this admission?: Yes (6) COPD (chronic obstructive pulmonary disease) Is this a current diagnosis for this admission?: Yes (7) Hypoalbuminemia Is this a current diagnosis for this admission?: Yes (8) Hypocalcemia Is this a current diagnosis for this admission?: No (9) Hyponatremia Is this a current diagnosis for this admission?: No (10) protein calorie malnourishment Is this a current diagnosis for this admission?: Yes (11) Anemia Is this a current diagnosis for this admission?: Yes (12) Alcohol abuse Is this a current diagnosis for this admission?: Yes (13) DTs (delirium tremens) Is this a current diagnosis for this admission?: Yes (14) Tobacco abuse Is this a current diagnosis for this admission?: Yes (15) Hypokalemia Is this a current diagnosis for this admission?: Yes (16) Diastolic CHF Is this a current diagnosis for this admission?: Yes (17) Ambulatory dysfunction Is this a current diagnosis for this admission?: Yes - Additional Information Resuscitation Status: Full Code Discharge Diet: Cardiac Discharge Activity: Slowly Increase Activity Home Medications: Amlodipine Besylate [Norvasc 5 mg Tablet] 5 mg PO DAILY #30 tablet 01/05/17 Carvedilol [Coreg 12.5 mg Tablet] 12.5 mg PO Q12 #60 tablet 01/05/17 Ferrous Sulfate [Feosol 325 mg Tablet] 325 mg PO DAILY #30 tablet 01/05/17 Lansoprazole [Prevacid 30 mg Odt Tablet] 30 mg PO BID@0600,1700 #60 tab 01/05/17 Levofloxacin [Levaquin 750 mg Tablet] 750 mg PO DAILY #5 tablet 01/05/17 Lisinopril [Prinivil 40 mg Tablet] 40 mg PO DAILY #30 tablet 01/05/17 Potassium Chloride [Klor-Con 10 Meq Tablet.sa] 20 meq PO DAILY #30 tablet.sa 07/16 Thiamine HCl [Thiamine 100 mg Tablet] 100 mg PO DAILY #30 tablet 01/05/17 History of Present Illness Patient complains of: Abdominal pain History of Present Illness: RAPHAEL BROWN is a 61 year old male who presents to the emergency department via ground transportation complaining of acute onset abdominal pain today. He actually has been feeling poorly for over a week. He's had nausea several episodes of vomiting and dark tarry stools. She has a long history of alcoholism, smoking abuse, history of pancreatitis in the 80s 2. He denies history of peptic ulcer disease, and is never had a colonoscopy. Seen in the emergency department for the last 6 hours complaining of abdominal pain was worked up and found to have unremarkable labs but a tender abdomen. Acute abdominal series was unremarkable but a CT scan of the abdomen and pelvis with oral contrast shows extravasation of oral contrast around the liver. Surgery was consulted, patient advised admission and need for emergent exploratory laparotomy. The patient received 1 L of fluid for hypotension, and responded satisfactorily. Hospital Course Hospital Course: Patient was admitted to the surgical service for perforated viscus. He underwent exploratory laparotomy, peritoneal washout, David patch repair of perforated duodenal ulcer on 12/19/[address] Vera of surgery. Patient was sent to the intensive care unit postoperatively. He was treated for peritonitis and respiratory failure. While in the intensive care unit he went through acute alcohol withdrawal. Eventually once he was out of alcohol withdrawal he was successfully weaned from mechanical ventilation. He has gradually improved from a postoperative and medical standpoint. With regard to patient's alcohol abuse as mentioned above he went through acute alcohol withdrawal. He is on thiamine supplementation. He is strongly counseled on alcohol cessation given perforated duodenal ulcer. With regard to what ulcer with perforation as mentioned above this was surgically repaired. Patient is on Prevacid 30 mg twice daily. He needs to avoid alcohol. Patient had pneumonia during hospitalization. He initially was on empiric IV antibiotics. Cultures of been negative. He has now been transitioned to oral Levaquin and is completing 5 more days of this upon discharge. With regard to hypertension, patient normally takes lisinopril 20 mg daily. We have increase lisinopril to 40 mg daily. We have added Norvasc 5 mg daily and Coreg 12.5 mg twice daily. This will need further follow-up by his primary care provider at the [facility] in [facility]. Patient has generalized weakness and ambulatory dysfunction as a result of his critical illness. He has been undergoing physical therapy and at this point he is ambulating throughout the room without the use of assistive device. He is requesting however to have a prescription for a rolling walker as he feels unsteady at times. I have prescribed a rolling walker upon discharge. I don't think he needs further rehabilitative services at this time. Patient had acute blood loss anemia requiring transfusion 1 unit PRBC. He is on iron supplementation. H&H is low but stable at time of discharge. From a cardiac standpoint patient was noted to have left ventricular diastolic dysfunction. He was diuresed at one point during hospitalization. He has been placed on Coreg. At time of discharge he is clinically compensated. Physical Exam Vital Signs: Temp Pulse Resp BP Pulse Ox 97.5 F 69 18 168/90 H 95 01/05/17 11:00 01/05/17 11:00 01/05/17 11:00 01/05/17 11:00 01/05/17 11:00 Intake & Output 01/04/17 01/05/17 01/06/17 06:59 06:59 06:59 Intake Total 1779 2025 Balance 1779 2025 Weight 51.8 kg 49.7 kg GENERAL: No acute distress HEENT: Conjunctiva clear, nonicteric, moist mucous membranes, no JVD, midline trachea RESPIRATORY: Clear to auscultation bilaterally, no wheezes, no rhonchi CARDIAC: Regular rate and rhythm, no murmurs/gallops/rubs ABDOMEN: Soft, nondistended, nontender, positive bowel sounds, no rebound, no guarding EXTREMETIES: No edema, cyanosis, clubbing NEUROLOGIC: Alert, oriented to person/place/time, CN's grossly intact, no focal deficits SKIN: Abdominal incision healed well. PSYCH: Normal mood, normal affect Results Laboratory Results: 01/05/17 05:34 01/05/17 05:34 01/05/17 01/05/17 05:34 05:34 WBC 8.5 RBC 3.12 L Hgb 9.5 L Hct 26.8 L MCV 86 MCH 30.3 MCHC 35.2 RDW 13.3 Plt Count 616 H Seg Neutrophils % 59.9 Lymphocytes % 18.2 Monocytes % 17.5 H Eosinophils % 3.3 Basophils % 1.1 Absolute Neutrophils 5.1 Absolute Lymphocytes 1.5 Absolute Monocytes 1.5 H Absolute Eosinophils 0.3 Absolute Basophils 0.1 Sodium 135.0 L Potassium 3.6 Chloride 98 Carbon Dioxide 29 Anion Gap 8 BUN 8 Creatinine 1.01 Est GFR ( Amer) > 60 Est GFR (Non-Af Amer) > 60 Glucose 100 Calcium 9.2 12/20/16 12/31/16 01/04/17 05:55 04:21 05:34 NT-Pro-B Natriuret Pep 490 6380 H 2290 H Impressions: Acute Abdomen Series 12/18/16 16:33 IMPRESSION: NO RADIOGRAPHIC EVIDENCE FOR ACUTE ABDOMINAL DISEASE. Abdomen/Pelvis CT 12/18/16 18:45 IMPRESSION: 1. Bowel perforation. Free air and contrast within the abdomen. Based on the appearance, suspect proximal GI tract viscus perforation. Possibly duodenal or gastric ulcer or proximal small bowel. Pertinent findings on the imaging study reported as a CRITICAL RESULT to LUPE HERNANDEZ MD at21:54 on 12/18/2016. Category of Critical Result: Bowel perforation. Upper GI Series 12/23/16 08:00 IMPRESSION: No evidence of contrast extravasation at the site of the ulcer repair Chest X-Ray 12/31/16 00:00 IMPRESSION: 1. Interval removal of left subclavian central venous catheter and nasogastric tubes. 2. Interval worsening of the interstitial and airspace opacities noted throughout the lungs, predominantly in the mid and lower lung zones. Head CT 01/01/17 00:00 IMPRESSION: Limited negative study. Motion artifact Qualifiers PATEINT BEING DISCHARGED WITH ANY OF THE FOLLOWING DIAGNOSIS?: No Plan Discharge Plan: Follow-up with primary care provider Kristi Purvis at [facility]. Follow- up Dr. Nithin Vera of surgery. Time Spent: Less than 30 Minutes
[2017-01-05] MEDS ORDERED: OXYCODONE-ACETAMINOPHEN 5-325 MG TABLET ONE (13:24)
[2017-01-05 13:33] VITALS: BP 168/77
== END 2017-01-05 14:19 | disposition home or self-care (01) | DRG 326 ==
LOC: ER 15:07 → EH 22:08 → UNDOADMIN 22:08 → EH 22:18 → ICU 12-19 00:33 → 4N 12-30 05:15
PROVIDERS: ADMIT Surgery; ATTEND Surgery
PROC: 0W9F00Z Drainage of Abdominal Wall with Drainage Device, Open Approach (ICD-10-PCS; 2016-12-18)
PROC: 0DQ90ZZ Repair Duodenum, Open Approach (ICD-10-PCS; principal; 2016-12-19)
PROC: 0DU907Z Supplement Duodenum with Autologous Tissue Substitute, Open Approach (ICD-10-PCS; 2016-12-19)
PROC: 0DB90ZX Excision of Duodenum, Open Approach, Diagnostic (ICD-10-PCS; 2016-12-19)
PROC: 0BH17EZ Insertion of Endotracheal Airway into Trachea, Via Natural or Artificial Opening (ICD-10-PCS; 2016-12-19)
PROC: 5A1955Z Respiratory Ventilation, Greater than 96 Consecutive Hours (ICD-10-PCS; 2016-12-19)
PROC: 02HV33Z Insertion of Infusion Device into Superior Vena Cava, Percutaneous Approach (ICD-10-PCS; 2016-12-19)
PROC: 30233N1 Transfusion of Nonautologous Red Blood Cells into Peripheral Vein, Percutaneous Approach (ICD-10-PCS; 2017-01-03)
DX: K26.2 Acute duodenal ulcer with both hemorrhage and perforation (principal); A41.9 Sepsis, unspecified organism; J96.00 Acute respiratory failure, unspecified whether with hypoxia or hypercapnia; K65.0 Generalized (acute) peritonitis; R65.21 Severe sepsis with septic shock; J18.9 Pneumonia, unspecified organism; D62 Acute posthemorrhagic anemia; E87.1 Hypo-osmolality and hyponatremia; F10.231 Alcohol dependence with withdrawal delirium; E46 Unspecified protein-calorie malnutrition; I50.32 Chronic diastolic (congestive) heart failure; E87.2 Acidosis; J44.0 Chronic obstructive pulmonary disease with (acute) lower respiratory infection; K66.0 Peritoneal adhesions (postprocedural) (postinfection); E83.51 Hypocalcemia; E83.42 Hypomagnesemia; E87.6 Hypokalemia; I70.0 Atherosclerosis of aorta; F17.210 Nicotine dependence, cigarettes, uncomplicated; E88.09 Other disorders of plasma-protein metabolism, not elsewhere classified; D72.819 Decreased white blood cell count, unspecified; K44.9 Diaphragmatic hernia without obstruction or gangrene; I11.0 Hypertensive heart disease with heart failure; Z78.1 Physical restraint status; M54.5 Low back pain; G89.29 Other chronic pain; Z68.21 Body mass index [BMI] 21.0-21.9, adult; B19.20 Unspecified viral hepatitis C without hepatic coma
CPT/HCPCS: 00790; 36415; 36430; 36600; 70450; 71010; 74022; 74177; 74247; 80048; 80053; 80202; 80307; 81001; 82040; 82272; 82550; 82553; 82607; 82728; 82746; 82803; 82962; 83540; 83550; 83605; 83690; 83735; 83880; 84100; 84478; 84484; 85025; 85027; 85045; 85610; 85730; 86677; 86850; 86900; 86901; 86920; 87040; 87070; 87086; 87205; 87493; 88305; 88341; 88342; 93005; 93010; 93306; 94002; 94003; 94640; 94799; 96361; 96374; 96375; 96376; 99291; C1751; J0131; J0330; J0360; J0692; J0743; J1170; J1630; J1642; J1650; J1940; J1956; J2020; J2060; J2250; J2270; J2370; J2405; J2543; J2704; J3010; J3370; J3411; J3475; J3480; J3490; J7030; J7060; J7620; P9016; P9047; S0028; S0164

== ENCOUNTER 2017-09-29 19:12 | Inpatient (IN) | payer OTHER ==
--- NOTE | 2017-09-29 21:25 | ER Document Report ---
ED General - General Chief Complaint: Abnormal Lab Results Stated Complaint: SODIUM CHECK Time Seen by Provider: 09/29/17 21:06 Notes: Patient is a 62-year-old male who comes emergency department for chief complaint of abnormal lab values, he states he was told by his primary care physician at the [place] [facility] that his sodium was too low and he needs to come the emergency department. He states he feels "okay", denies any specific abnormal symptoms at this time. He has a history of chronic alcoholism, admits to several beers a day, drinks up to a 12 pack daily, also has a history of tobacco abuse, hypertension. He denies any history of withdrawal symptoms but also admits he has not gone without any alcohol in a long time. He denies any recreational drugs. TRAVEL OUTSIDE OF THE [place] IN LAST 30 DAYS: No - Related Data Allergies/Adverse Reactions: No Known Allergies Allergy (Verified 09/29/17 19:13) Home Medications: Current Home Medications Ferrous Sulfate 324 mg PO DAILY 09/29/17 [History] Lisinopril/Hydrochlorothiazide [Lisinopril-Hctz 20-12.5 mg Tab] 1 each PO DAILY 09/29/17 [History] Multivitamin [Multivitamins] 1 tab PO DAILY 09/29/17 [History] Omeprazole 40 mg PO DAILY 09/29/17 [History] Trazodone HCl 25 mg PO QHS 09/29/17 [History] Past Medical History - General Information source: Patient - Social History Smoking Status: Current Every Day Smoker Frequency of alcohol use: Heavy Drug Abuse: None Lives with: Alone Family History: Reviewed & Not Pertinent - Past Medical History Cardiac Medical History: Reports: Hx Hypertension Renal/ Medical History: Denies: Hx Peritoneal Dialysis Past Surgical History: Reports: Other - Bilateral mastoid surgery - Immunizations Hx Diphtheria, Pertussis, Tetanus Vaccination: Yes - 4 years ago Review of Systems - Review of Systems Constitutional: No symptoms reported EENT: No symptoms reported Cardiovascular: No symptoms reported Respiratory: No symptoms reported Gastrointestinal: No symptoms reported Genitourinary: No symptoms reported Male Genitourinary: No symptoms reported Musculoskeletal: No symptoms reported Skin: No symptoms reported Hematologic/Lymphatic: No symptoms reported Neurological/Psychological: No symptoms reported Physical Exam - Vital signs Vitals: Temp Pulse Resp BP Pulse Ox 97.9 F 77 20 178/72 H 98 09/29/17 19:31 09/29/17 19:31 09/29/17 19:31 09/29/17 19:31 09/29/17 19:31 Interpretation: Normal - General General appearance: Appears well, Alert In distress: None - patient alert, cooperative - HEENT Head: Normocephalic, Atraumatic Eyes: Normal Conjunctiva: Normal Extraocular movements intact: Yes Eyelashes: Normal Pupils: PERRL Nasal: Normal Mouth/Lips: Normal Mucous membranes: Dry Pharynx: Normal Neck: Normal - Respiratory Respiratory status: No respiratory distress Chest status: Nontender Breath sounds: Normal Chest palpation: Normal - Cardiovascular Rhythm: Regular. No: Tachycardia Heart sounds: Normal auscultation, S1 appreciated, S2 appreciated Murmur: No - Abdominal Inspection: Normal Distension: No distension Bowel sounds: Normal Tenderness: Nontender. No: Tender, Guarding Organomegaly: No organomegaly - Back Back: Normal, Nontender. No: Tender - Extremities General upper extremity: Normal inspection, Nontender, Normal strength, Normal temperature General lower extremity: Normal inspection, Nontender, Normal strength, Normal temperature - Neurological Neuro grossly intact: Yes Cognition: Normal Orientation: AAOx4 [place] Coma Scale Eye Opening: Spontaneous [place] Coma Scale Verbal: Oriented [place] Coma Scale Motor: Obeys Commands [place] Coma Scale Total: 15 Speech: Normal Motor strength normal: LUE, RUE, LLE, RLE Sensory: Normal - Psychological Associated symptoms: Normal affect, Normal mood - Skin Skin Temperature: Warm Skin Moisture: Dry Skin Color: Chuy Course - Re-evaluation Re-evalutation: Patient asymptomatic, however because of reported hyponatremia, risk factors, patient placed on monitoring and seizure precautions. CBC shows mild normocytic anemia, otherwise unremarkable. Chemistry shows marked hyponatremia at 116. Alcohol is only 67. LFTs slightly elevated with AST greater than ALT, patient has no right upper quadrant tenderness or generalized abdominal tenderness on examination. Patient will be started on slow IV fluid sodium replacement. Discussed with patient, patient states understanding and understanding that he will need to be admitted to the hospital. Discussed with Dr. Sequeira, internal medicine, patient will be admitted to telemetry. - Vital Signs Vital signs: Temp Pulse Resp BP Pulse Ox 98.4 F 77 26 H 159/56 H 99 09/30/17 01:40 09/29/17 19:31 09/30/17 01:36 09/30/17 01:36 09/30/17 01:36 - Laboratory Result Diagrams: 09/29/17 22:20 09/30/17 01:45 Laboratory results interpreted by me: 09/29/17 09/29/17 09/29/17 22:20 22:20 22:20 RBC 3.78 L Hgb 12.6 L Hct 34.2 L MCHC 36.8 H Sodium 116.1 L* Chloride 76 L BUN 4 L Glucose 65 L Direct Bilirubin 0.5 H AST 211 H ALT 119 H Urine Ketones TRACE H Discharge - Discharge Clinical Impression: Hyponatremia, Alcohol abuse Condition: Stable Disposition: ADMITTED INPATIENT Admitting Provider: Hospitalist Unit Admitted: IMREBECCA
[2017-09-29 22:29] LABS: ABSOLUTE BASOPHILS # (AUTO) 0.1 10^3/uL (0.0-0.2); ABSOLUTE EOSINOPHILS # (AUTO) 0.1 10^3/uL (0.0-0.6); ABSOLUTE LYMPHOCYTES (AUTO) 1.6 10^3/uL (0.5-4.7); ABSOLUTE MONOCYTES (AUTO) 0.7 10^3/uL (0.1-1.4); ABSOLUTE NEUT (AUTO) 3.4 10^3/uL (1.7-8.2); BASOPHILS % (AUTO) 1.3 % (0-2); EOSINOPHILS % (AUTO) 1.3 % (0-6); HEMATOCRIT 34.2 % (37.9-51.0); HEMOGLOBIN 12.6 g/dL (13.5-17.0); HGB HCT DIFFERENCE 3.6; LYMPHOCYTES % (AUTO) 27.4 % (13-45); MEAN CORPUSCULAR HEMOGLOBIN 33.3 pg (27.0-33.4); MEAN CORPUSCULAR HGB CONC 36.8 g/dL (32.0-36.0); MEAN CORPUSCULAR VOLUME 91 fl (80-97); MONOCYTES % (AUTO) 11.2 % (3-13); RED BLOOD COUNT 3.78 10^6/uL (4.35-5.55); RED CELL DISTRIBUTION WIDTH 12.6 % (11.5-14.0); SEGMENTED NEUTROPHILS % (AUTO) 58.8 % (42-78); WHITE BLOOD COUNT 5.8 10^3/uL (4.0-10.5)
[2017-09-29 22:49] LABS: ALANINE AMINOTRANSFERASE 119 U/L (21-72); ALBUMIN 4.3 g/dL (3.5-5.0); ALCOHOL 67 mg/dL (NONE DETECTED); ALKALINE PHOSPHATASE 86 U/L (38-126); ANION GAP 15 (5-19); ASPARTATE AMINO TRANSFERASE 211 U/L (17-59); BILIRUBIN,DIRECT 0.5 mg/dL (0.0-0.4); BLOOD UREA NITROGEN 4 mg/dL (7-20); CALCIUM 9.3 mg/dL (8.4-10.2); CARBON DIOXIDE 25 mmol/L (22-30); CHLORIDE 76 mmol/L (98-107); CREATININE RESULT 0.74 mg/dL (0.52-1.25); GLUCOSE 65 mg/dL (75-110); POTASSIUM 3.9 mmol/L (3.6-5.0); TOTAL PROTEIN 7.2 g/dL (6.3-8.2)
[2017-09-29 22:59] LABS: SODIUM 116.1 mmol/L (137-145)
[2017-09-29] MEDS ORDERED: NORMAL SALINE 1000 ML 1,000 ML IV PRN (23:04)
[2017-09-29] MEDS ORDERED: ONDANSETRON HCL INJ/PF 4 MG/2 ML SDV IV ONE (23:15)
[2017-09-29] MEDS ORDERED: THIAMINE HCL 100 MG in NORMAL SALINE 50 ML IV ONE (23:31)
[2017-09-29] MEDS ORDERED: THIAMINE HCL INJ 200 MG/2 ML VIAL ONE (23:51)
[2017-09-30] MEDS ORDERED: DEXTROSE 50%-WATER 25 GM/50 ML DISP.SYRIN IV PRN ×4 (01:04→16:32)
[2017-09-30] MEDS ORDERED: GLUCAGON,HUMAN RECOMB 1 MG INJ IM PRN ×2 (01:04→16:32)
[2017-09-30] MEDS ORDERED: DEXTROSE 40% GEL 15 GM TUBE PO PRN ×4 (01:04→16:32)
[2017-09-30] MEDS ORDERED: ONDANSETRON HCL INJ/PF 4 MG/2 ML SDV IV PRN (01:19)
[2017-09-30] MEDS ORDERED: ACETAMINOPHEN 325 MG TABLET PO PRN (01:19)
[2017-09-30] MEDS ORDERED: LISINOPRIL 10 MG TABLET PO ONE (01:45)
[2017-09-30] MEDS: IPRATROPIUM/ALBUTEROL 0.5-2.5 MG/3 ML AMPUL NEB SCH ×4 (01:59→19:43)
[2017-09-30 02:13] LABS: APPEARANCE,URINE CLEAR; BILIRUBIN,URINE NEGATIVE (NEGATIVE); GLUCOSE, URINE NEGATIVE (NEGATIVE); KETONES,URINE TRACE mg/dL (NEGATIVE); LEUKOCYTE ESTERASE,URINE NEGATIVE (NEGATIVE); NITRITE,URINE NEGATIVE (NEGATIVE); PROTEIN,URINE NEGATIVE (NEGATIVE); URINE SPECIFIC GRAVITY 1.003; UROBILINOGEN,URINE NEGATIVE mg/dL (<2.0)
[2017-09-30 02:18] LABS: ANION GAP 18 (5-19); BLOOD UREA NITROGEN 4 mg/dL (7-20); CALCIUM 8.9 mg/dL (8.4-10.2); CARBON DIOXIDE 19 mmol/L (22-30); CHLORIDE 83 mmol/L (98-107); CREATININE RESULT 0.65 mg/dL (0.52-1.25)
[2017-09-30 02:20] LABS: POTASSIUM 3.6 mmol/L (3.6-5.0)
[2017-09-30 02:25] LABS: SODIUM 119.9 mmol/L (137-145)
[2017-09-30 02:28] LABS: GLUCOSE 64 mg/dL (75-110)
[2017-09-30 02:35] LABS: URINE CREATININE 34.8 mg/dL (22-328)
[2017-09-30] MEDS ORDERED: NORMAL SALINE 1000 ML 1,000 ML IV PRN ×2 (02:48→02:50)
[2017-09-30] MEDS: DIAZEPAM 5 MG TABLET PO SCH ×3 (05:13→22:11)
[2017-09-30] MEDS: LANSOPRAZOLE 30 MG TAB.RAP.DR PO SCH ×2 (05:13→17:01)
[2017-09-30] MEDS: HEPARIN SOD (PORCINE) 5,000 UNIT/ML 1 ML SYRINGE SUBCUT SCH ×3 (05:13→22:12)
[2017-09-30] MEDS: METHYLPREDNISOLONE INJ 40 MG/1 ML SDV IV SCH ×3 (05:13→22:12)
[2017-09-30 05:56] LABS: ANION GAP 14 (5-19); BLOOD UREA NITROGEN 4 mg/dL (7-20); CARBON DIOXIDE 22 mmol/L (22-30); CHLORIDE 83 mmol/L (98-107); CREATININE RESULT 0.61 mg/dL (0.52-1.25); GLUCOSE 120 mg/dL (75-110); POTASSIUM 3.3 mmol/L (3.6-5.0)
[2017-09-30 06:00] LABS: SODIUM 118.6 mmol/L (137-145)
[2017-09-30] MEDS: MAGNESIUM SULFATE 1 GM/D5W 100 ML IV SCH ×2 (06:40→07:54)
--- NOTE | 2017-09-30 06:51 | PDOC H&P ---
History of Present Illness Admission Date/PCP: 09/29/17 23:40 History of Present Illness: RAPHAEL BROWN is a 62 year old male with past medical history of COPD, hyponatremia, alcohol abuse, alcohol withdrawal, diastolic heart failure, and perforated viscus status post repair who presents to the emergency department at the behest of his primary care physician for hyponatremia. Patient was found to have a sodium of 116. He reports that he drinks 2-3 sometimes up to 6 beers a day still. He has been recently started on hydrochlorothiazide for the last several months. He reports that he feels weak and occasionally is unsteady when he gets on his feet. He reports that he fell and hit his head several days ago, but did not lose consciousness. He denies any focal neurologic symptoms. He is referred to hospital service for hyponatremia. Past Medical History Cardiac Medical History: Reports: Congestive Heart Failure, Hypertension Pulmonary Medical History: Reports: Chronic Obstructive Pulmonary Disease (COPD) , Intubation, Pneumonia, Respiratory Failure Psychiatric Medical History: Reports: Alcohol Dependency, Tobacco Dependency Past Surgical History Past Surgical History: Reports: Other - Bilateral mastoid surgery Perforated duodenal ulcer with repair Social History Lives with: Alone Smoking Status: Current Every Day Smoker Cigarettes Packs Per Day: 0.4 Number of Years Smokin Frequency of Alcohol Use: Heavy Hx Recreational Drug Use: Yes Drugs: Marijuana Hx Prescription Drug Abuse: No - Advance Directive Resuscitation Status: Full Code Surrogate healthcare decision maker:: Jayleen Judson, Full Family History Family History: CAD Parental Family History Reviewed: Yes Children Family History Reviewed: Yes Sibling(s) Family History Reviewed.: Yes Medication/Allergy Home Medications: Thiamine HCl [Thiamine 100 mg Tablet] 100 mg PO DAILY #30 tablet 01/05/17 Ferrous Sulfate 324 mg PO DAILY 09/29/17 Lisinopril/Hydrochlorothiazide [Lisinopril-Hctz 20-12.5 mg Tab] 1 each PO DAILY 09/29/17 Multivitamin [Multivitamins] 1 tab PO DAILY 09/29/17 Omeprazole 40 mg PO DAILY 09/29/17 Trazodone HCl 25 mg PO QHS 09/29/17 Allergies/Adverse Reactions: No Known Allergies Allergy (Verified 09/29/17 19:13) Review of Systems Constitutional: PRESENT: anorexia, weakness. ABSENT: chills, fever(s), headache (s), weight gain, weight loss Eyes: ABSENT: visual disturbances Ears: ABSENT: hearing changes Cardiovascular: ABSENT: chest pain, dyspnea on exertion, edema, orthropnea, palpitations Respiratory: ABSENT: cough, hemoptysis Gastrointestinal: PRESENT: nausea. ABSENT: abdominal pain, constipation, diarrhea, hematemesis, hematochezia, vomiting Genitourinary: ABSENT: dysuria, hematuria Musculoskeletal: ABSENT: joint swelling Integumentary: ABSENT: rash, wounds Neurological: PRESENT: frequent falls. ABSENT: abnormal gait, abnormal speech, confusion, dizziness, focal weakness, syncope Psychiatric: ABSENT: anxiety, depression, homidical ideation, suicidal ideation Endocrine: ABSENT: cold intolerance, heat intolerance, polydipsia, polyuria Hematologic/Lymphatic: ABSENT: easy bleeding, easy bruising Physical Exam Vital Signs: Temp Pulse Resp BP Pulse Ox 98.2 F 74 14 155/64 H 99 09/30/17 04:56 09/30/17 04:56 09/30/17 04:56 09/30/17 04:56 09/30/17 04:56 General appearance: PRESENT: no acute distress, disheveled, well-developed, well -nourished Head exam: PRESENT: normocephalic. ABSENT: atraumatic Head Image: 1 - Abrasion Eye exam: PRESENT: conjunctiva pink, EOMI, PERRLA. ABSENT: conjunctival injection, scleral icterus Ear exam: PRESENT: normal external ear exam Mouth exam: PRESENT: dry mucosa, tongue midline Neck exam: ABSENT: JVD, lymphadenopathy, thyromegaly, tracheal deviation Respiratory exam: PRESENT: clear to auscultation pierre, symmetrical, unlabored. ABSENT: accessory muscle use, rales, rhonchi, wheezes Cardiovascular exam: PRESENT: RRR, +S1, +S2. ABSENT: diastolic murmur, rubs, systolic murmur Pulses: PRESENT: normal dorsalis pedis pul Vascular exam: PRESENT: normal capillary refill GI/Abdominal exam: PRESENT: normal bowel sounds, soft. ABSENT: distended, firm , guarding, mass, León's sign, organolmegaly, rebound, rigid, tenderness Rectal exam: PRESENT: deferred Extremities exam: PRESENT: clubbing, full ROM. ABSENT: calf tenderness, pedal edema Neurological exam: PRESENT: alert, awake, oriented to person, oriented to place , oriented to time, oriented to situation, CN II-XII grossly intact. ABSENT: motor sensory deficit Psychiatric exam: PRESENT: appropriate affect, normal mood. ABSENT: homicidal ideation, suicidal ideation Skin exam: PRESENT: dry, intact, warm. ABSENT: cyanosis, rash Results Laboratory Results: 09/30/17 05:16 09/30/17 09/30/17 09/30/17 01:45 01:45 01:45 Sodium 119.9 L* Potassium 3.6 Chloride 83 L Carbon Dioxide 19 L Anion Gap 18 BUN 4 L Creatinine 0.65 Est GFR ( Amer) > 60 Est GFR (Non-Af Amer) > 60 Glucose 64 L Calcium 8.9 Magnesium 1.5 L TSH 2.46 09/30/17 05:16 Sodium 118.6 L* Potassium 3.3 L Chloride 83 L Carbon Dioxide 22 Anion Gap 14 BUN 4 L Creatinine 0.61 Est GFR ( Amer) > 60 Est GFR (Non-Af Amer) > 60 Glucose 120 H Calcium 9.0 Magnesium TSH Assessment & Plan - Diagnosis (1) Hyponatremia Is this a current diagnosis for this admission?: Yes Plan: Likely secondary to use of hydrochlorothiazide Check urine sodium Initiate patient on normal saline at 83 mL/h BMP every 4 Seizure precautions (2) Alcohol abuse Is this a current diagnosis for this admission?: Yes Plan: Monitor patient on telemetry for arrhythmia. Check magnesium. Scheduled po Valium. PRN IV Ativan for withdrawal symptoms. Place on thiamine, folic acid. Monitor for worsening symptomatology (3) COPD (chronic obstructive pulmonary disease) Qualifiers: COPD type: unspecified COPD Qualified Code(s): J44.9 - Chronic obstructive pulmonary disease, unspecified Is this a current diagnosis for this admission?: Yes Plan: Initiate patient on DuoNeb's and Solu-Medrol for mild COPD exacerbation (4) Diastolic CHF Qualifiers: Congestive heart failure chronicity: chronic Qualified Code(s): I50.32 - Chronic diastolic (congestive) heart failure Is this a current diagnosis for this admission?: Yes (5) GERD (gastroesophageal reflux disease) Is this a current diagnosis for this admission?: Yes (6) Hiatal hernia Is this a current diagnosis for this admission?: Yes (7) Hypertension Qualifiers: Hypertension type: essential hypertension Qualified Code(s): I10 - Essential (primary) hypertension Is this a current diagnosis for this admission?: Yes Plan: Stop home hydrochlorothiazide. Continue lisinopril 20 mg p.o. twice daily (8) Hypoalbuminemia Is this a current diagnosis for this admission?: Yes (9) Hypomagnesemia Is this a current diagnosis for this admission?: Yes Plan: Monitor on telemetry with concern for arrhythmia. Replete and recheck (10) Tobacco abuse Is this a current diagnosis for this admission?: Yes Plan: Patient is advised to stop using tobacco. Counseling lasted longer than 3 minutes. (11) Atherosclerosis of abdominal aorta Is this a current diagnosis for this admission?: Yes - Time Time Spent: 30 to 50 Minutes Medications reviewed and adjusted accordingly: Yes Anticipated discharge: Home with Homehealth Within: Other - Upon improvement of symptomatology - Inpatient Certification Based on my medical assessment, after consideration of the patient's comorbidities, presenting symptoms, or acuity I expect that the services needed warrant INPATIENT care.: Yes I certify that my determination is in accordance with my understanding of Medicare's requirements for reasonable and necessary INPATIENT services [42 CFR 412.3e].: Yes Medical Necessity: Need For IV Fluids, Need For Continuous Telemetry Monitoring Post Hospital Care: D/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
[2017-09-30] MEDS ORDERED: POTASSIUM CHLORIDE 10 MEQ TABLET.SA PO ONE (07:00)
[2017-09-30] MEDS ORDERED: INFLUENZA ADLT QUAD (36MOS+) 2017-18 VAC 0.5 ML SYR IM PRN (07:46)
[2017-09-30] MEDS ORDERED: (PENDING PHARMACY ID) (Multivitamin [Multivitamins] 1 TAB) PO SCH (10:00)
[2017-09-30] MEDS ORDERED: (PENDING PHARMACY ID) (Ferrous Sulfate [Ferrous Sulfate] 324 MG) PO SCH (10:00)
[2017-09-30 10:06] LABS: ANION GAP 16 (5-19); BLOOD UREA NITROGEN 5 mg/dL (7-20); CALCIUM 9.6 mg/dL (8.4-10.2); CARBON DIOXIDE 21 mmol/L (22-30); CHLORIDE 86 mmol/L (98-107); CREATININE RESULT 0.71 mg/dL (0.52-1.25); GLUCOSE 138 mg/dL (75-110); POTASSIUM 3.9 mmol/L (3.6-5.0); SODIUM 122.6 mmol/L (137-145)
[2017-09-30] MEDS: FERROUS SULFATE 325 MG TABLET PO SCH (10:33)
[2017-09-30] MEDS: MULTIVITAMIN TABLET PO SCH (10:33)
[2017-09-30] MEDS: THIAMINE HCL 100 MG TABLET PO SCH (10:33)
[2017-09-30] MEDS: LISINOPRIL 10 MG TABLET PO SCH ×2 (10:34→22:12)
[2017-09-30] MEDS: DOCUSATE SODIUM 100 MG CAPSULE PO SCH (10:34)
[2017-09-30] MEDS: NORMAL SALINE 1000 ML 1,000 ML IV PRN ×2 (10:36→17:02)
[2017-09-30 14:25] LABS: ANION GAP 12 (5-19); BLOOD UREA NITROGEN 7 mg/dL (7-20); CALCIUM 8.9 mg/dL (8.4-10.2); CARBON DIOXIDE 21 mmol/L (22-30); CHLORIDE 90 mmol/L (98-107); CREATININE RESULT 0.82 mg/dL (0.52-1.25); GLUCOSE 219 mg/dL (75-110); POTASSIUM 4.5 mmol/L (3.6-5.0); SODIUM 123.2 mmol/L (137-145)
--- NOTE | 2017-09-30 14:42 | Progress Note ---
Provider Note Provider Note: Patient was admitted this morning by Dr. Sequeira. Patient is doing well and his sodium is gradually trending up. Patient NS was increased to 100cc/hr. Serum sodium is now 123. Will continue to monitor throughout the day.
[2017-09-30] MEDS: INSULIN LISPRO 100 UNIT/ML 3 ML VIAL SUBCUT PRN ×2 (17:49→22:12)
[2017-09-30 18:27] LABS: ANION GAP 13 (5-19); BLOOD UREA NITROGEN 9 mg/dL (7-20); CALCIUM 8.9 mg/dL (8.4-10.2); CARBON DIOXIDE 20 mmol/L (22-30); CHLORIDE 91 mmol/L (98-107); CREATININE RESULT 0.84 mg/dL (0.52-1.25); GLUCOSE 267 mg/dL (75-110); POTASSIUM 4.1 mmol/L (3.6-5.0); SODIUM 124.1 mmol/L (137-145)
[2017-09-30 21:39] LABS: ANION GAP 13 (5-19); BLOOD UREA NITROGEN 9 mg/dL (7-20); CARBON DIOXIDE 18 mmol/L (22-30); CHLORIDE 93 mmol/L (98-107); CREATININE RESULT 0.91 mg/dL (0.52-1.25); GLUCOSE 165 mg/dL (75-110); POTASSIUM 3.7 mmol/L (3.6-5.0); SODIUM 124.3 mmol/L (137-145)
[2017-09-30] MEDS: TRAZODONE HCL 50 MG TABLET PO SCH (22:11)
[2017-09-30] MEDS ORDERED: DEXTROSE 5%-WATER 1000 ML 1,000 ML IV PRN (22:26)
--- NOTE | 2017-09-30 22:28 | Progress Note ---
Provider Note Provider Note: upon reviewing patient sodium and discovering patient sodium has trended up from 116 to 124, have stopped NS and started D5. will continue to monitor.
[2017-10-01] MEDS: IPRATROPIUM/ALBUTEROL 0.5-2.5 MG/3 ML AMPUL NEB SCH ×4 (01:52→19:38)
[2017-10-01 02:10] LABS: ANION GAP 13 (5-19); BLOOD UREA NITROGEN 10 mg/dL (7-20); CARBON DIOXIDE 20 mmol/L (22-30); CHLORIDE 92 mmol/L (98-107); CREATININE RESULT 0.84 mg/dL (0.52-1.25); GLUCOSE 164 mg/dL (75-110); POTASSIUM 4.1 mmol/L (3.6-5.0); SODIUM 125.2 mmol/L (137-145)
[2017-10-01 05:57] LABS: HEMATOCRIT 32.3 % (37.9-51.0); HEMOGLOBIN 11.4 g/dL (13.5-17.0); HGB HCT DIFFERENCE 1.9; MEAN CORPUSCULAR HEMOGLOBIN 32.5 pg (27.0-33.4); MEAN CORPUSCULAR HGB CONC 35.2 g/dL (32.0-36.0); MEAN CORPUSCULAR VOLUME 93 fl (80-97); RED BLOOD COUNT 3.49 10^6/uL (4.35-5.55); RED CELL DISTRIBUTION WIDTH 12.7 % (11.5-14.0); WHITE BLOOD COUNT 9.6 10^3/uL (4.0-10.5)
[2017-10-01 06:01] LABS: PROTHROMBIN TIME 12.7 SEC (11.4-15.4)
[2017-10-01 06:17] LABS: ANION GAP 12 (5-19); BLOOD UREA NITROGEN 9 mg/dL (7-20); CARBON DIOXIDE 20 mmol/L (22-30); CHLORIDE 92 mmol/L (98-107); CREATININE RESULT 0.78 mg/dL (0.52-1.25); GLUCOSE 195 mg/dL (75-110); MAGNESIUM 1.7 mg/dL (1.6-2.3); POTASSIUM 3.6 mmol/L (3.6-5.0); SODIUM 123.5 mmol/L (137-145)
[2017-10-01] MEDS: LANSOPRAZOLE 30 MG TAB.RAP.DR PO SCH ×2 (06:17→17:41)
[2017-10-01] MEDS: DIAZEPAM 5 MG TABLET PO SCH ×3 (06:18→21:47)
[2017-10-01] MEDS: METHYLPREDNISOLONE INJ 40 MG/1 ML SDV IV SCH (06:18)
[2017-10-01] MEDS: HEPARIN SOD (PORCINE) 5,000 UNIT/ML 1 ML SYRINGE SUBCUT SCH ×3 (06:18→21:49)
[2017-10-01 06:21] LABS: BAND NEUTROPHILS % (MANUAL) 2 % (3-5); BASOPHILS % (MANUAL) 0 % (0-2); EOSINOPHILS % (MANUAL) 0 % (0-6); LYMPHOCYTES % (MANUAL) 1 % (13-45); TOTAL CELLS COUNTED 100
[2017-10-01 06:22] LABS: OVALOCYTES SLIGHT; POIKILOCYTOSIS SLIGHT
[2017-10-01 06:23] LABS: TOXIC GRANULATION SLIGHT
[2017-10-01] MEDS ORDERED: AMLODIPINE BESYLATE 10 MG TABLET PO ONE (08:43)
[2017-10-01] MEDS ORDERED: HYDRALAZINE HCL 25 MG TABLET PO PRN (08:51)
--- NOTE | 2017-10-01 09:00 | PDOC PROGRESS REPORT ---
Subjective Progress Note for:: 10/01/17 Subjective:: Pt states that he is feeling ok. Pt states that he would like to go home today if possible. Nursing states that pt has been fine. No issues. Reason For Visit: SYMPTOMATIC HYPONATREMIC Physical Exam Vital Signs: Temp Pulse Resp BP Pulse Ox 97.6 F 70 14 160/79 H 98 10/01/17 04:47 10/01/17 08:03 10/01/17 08:03 10/01/17 04:47 10/01/17 08:03 Intake & Output 09/30/17 10/01/17 10/02/17 06:59 06:59 06:59 Intake Total 466 2665 Output Total 600 2255 Balance -134 410 Weight 51.2 kg 53.2 kg General appearance: PRESENT: no acute distress, well-developed, well-nourished Head exam: PRESENT: atraumatic, normocephalic Eye exam: PRESENT: conjunctiva pink, EOMI, PERRLA. ABSENT: scleral icterus Ear exam: PRESENT: normal external ear exam Mouth exam: PRESENT: moist, tongue midline Neck exam: ABSENT: carotid bruit, JVD, lymphadenopathy, thyromegaly Respiratory exam: PRESENT: clear to auscultation pierre. ABSENT: rales, rhonchi, wheezes Cardiovascular exam: PRESENT: RRR. ABSENT: diastolic murmur, rubs, systolic murmur Pulses: PRESENT: normal dorsalis pedis pul Vascular exam: PRESENT: normal capillary refill GI/Abdominal exam: PRESENT: normal bowel sounds, soft. ABSENT: distended, guarding, mass, organolmegaly, rebound, tenderness Rectal exam: PRESENT: deferred Extremities exam: PRESENT: full ROM. ABSENT: calf tenderness, clubbing, pedal edema Neurological exam: PRESENT: alert, awake, oriented to person, oriented to place , oriented to time, oriented to situation, CN II-XII grossly intact. ABSENT: motor sensory deficit Psychiatric exam: PRESENT: appropriate affect, normal mood. ABSENT: homicidal ideation, suicidal ideation Skin exam: PRESENT: dry, intact, warm. ABSENT: cyanosis, rash Results Laboratory Results: 10/01/17 05:09 10/01/17 05:09 09/30/17 09/30/17 09/30/17 09:31 13:31 17:20 WBC RBC Hgb Hct MCV MCH MCHC RDW Plt Count Seg Neutrophils % Lymphocytes % Monocytes % Eosinophils % Basophils % Absolute Neutrophils Absolute Lymphocytes Absolute Monocytes Absolute Eosinophils Absolute Basophils Sodium 122.6 L 123.2 L 124.1 L Potassium 3.9 4.5 4.1 Chloride 86 L 90 L 91 L Carbon Dioxide 21 L 21 L 20 L Anion Gap 16 12 13 BUN 5 L 7 9 Creatinine 0.71 0.82 0.84 Est GFR ( Amer) > 60 > 60 > 60 Est GFR (Non-Af Amer) > 60 > 60 > 60 Glucose 138 H 219 H 267 H Calcium 9.6 8.9 8.9 Magnesium 09/30/17 10/01/17 10/01/17 21:10 01:20 05:09 WBC RBC Hgb Hct MCV MCH MCHC RDW Plt Count Seg Neutrophils % Lymphocytes % Monocytes % Eosinophils % Basophils % Absolute Neutrophils Absolute Lymphocytes Absolute Monocytes Absolute Eosinophils Absolute Basophils Sodium 124.3 L 125.2 L 123.5 L Potassium 3.7 4.1 3.6 Chloride 93 L 92 L 92 L Carbon Dioxide 18 L 20 L 20 L Anion Gap 13 13 12 BUN 9 10 9 Creatinine 0.91 0.84 0.78 Est GFR ( Amer) > 60 > 60 > 60 Est GFR (Non-Af Amer) > 60 > 60 > 60 Glucose 165 H 164 H 195 H Calcium 9.0 9.0 9.0 Magnesium 1.7 10/01/17 05:09 WBC 9.6 RBC 3.49 L Hgb 11.4 L Hct 32.3 L MCV 93 MCH 32.5 MCHC 35.2 RDW 12.7 Plt Count 199 Seg Neutrophils % Not Reportable Lymphocytes % Not Reportable Monocytes % Not Reportable Eosinophils % Not Reportable Basophils % Not Reportable Absolute Neutrophils Not Reportable Absolute Lymphocytes Not Reportable Absolute Monocytes Not Reportable Absolute Eosinophils Not Reportable Absolute Basophils Not Reportable Sodium Potassium Chloride Carbon Dioxide Anion Gap BUN Creatinine Est GFR ( Amer) Est GFR (Non-Af Amer) Glucose Calcium Magnesium Assessment & Plan - Diagnosis (1) Hyponatremia Is this a current diagnosis for this admission?: Yes Plan: Pt sodium has been improving. Will discontinue IVFs. Will check sodium this afternoon. Encourage pt to eat and drink. (2) Alcohol abuse Is this a current diagnosis for this admission?: Yes Plan: Will continue Valium. Will continue to monitor. (3) COPD (chronic obstructive pulmonary disease) Qualifiers: COPD type: unspecified COPD Qualified Code(s): J44.9 - Chronic obstructive pulmonary disease, unspecified Is this a current diagnosis for this admission?: Yes Plan: Will discontinue Steroids and make breathing treatments PRN. (4) Tobacco abuse Is this a current diagnosis for this admission?: Yes Plan: Encourage pt to stop smoking. (5) Atherosclerosis of abdominal aorta Is this a current diagnosis for this admission?: Yes Plan: Supportive care. (6) Diastolic CHF Qualifiers: Congestive heart failure chronicity: chronic Qualified Code(s): I50.32 - Chronic diastolic (congestive) heart failure Is this a current diagnosis for this admission?: Yes Plan: Will discontinue IVFs. (7) Hypoalbuminemia Is this a current diagnosis for this admission?: Yes Plan: Encourage good PO intake. (8) Hypomagnesemia Is this a current diagnosis for this admission?: Yes Plan: Will give additional magensium (9) DVT prophylaxis Is this a current diagnosis for this admission?: Yes Plan: Heparin - Time Time Spent with patient: 15-24 minutes
[2017-10-01] MEDS: MULTIVITAMIN TABLET PO SCH (10:00)
[2017-10-01] MEDS: MAGNESIUM SULFATE/D5W 1 GM/100 ML RTUPB IV SCH ×2 (10:00→12:07)
[2017-10-01] MEDS: LISINOPRIL 10 MG TABLET PO SCH ×2 (10:01→21:47)
[2017-10-01] MEDS: THIAMINE HCL 100 MG TABLET PO SCH (10:01)
[2017-10-01] MEDS: DOCUSATE SODIUM 100 MG CAPSULE PO SCH (10:01)
[2017-10-01] MEDS: FERROUS SULFATE 325 MG TABLET PO SCH (10:01)
[2017-10-01] MEDS: AMLODIPINE BESYLATE 10 MG TABLET PO SCH (10:02)
[2017-10-01 15:22] LABS: ANION GAP 13 (5-19); BLOOD UREA NITROGEN 10 mg/dL (7-20); CALCIUM 9.1 mg/dL (8.4-10.2); CARBON DIOXIDE 22 mmol/L (22-30); CHLORIDE 91 mmol/L (98-107); CREATININE RESULT 0.81 mg/dL (0.52-1.25); GLUCOSE 168 mg/dL (75-110); POTASSIUM 3.8 mmol/L (3.6-5.0); SODIUM 126.3 mmol/L (137-145)
[2017-10-01] MEDS: TRAZODONE HCL 50 MG TABLET PO SCH (21:49)
[2017-10-02] MEDS: IPRATROPIUM/ALBUTEROL 0.5-2.5 MG/3 ML AMPUL NEB SCH ×2 (02:02→07:48)
[2017-10-02 05:15] LABS: ABSOLUTE LYMPHOCYTES (AUTO) 1.7 10^3/uL (0.5-4.7); ABSOLUTE MONOCYTES (AUTO) 0.7 10^3/uL (0.1-1.4); ABSOLUTE NEUT (AUTO) 11.8 10^3/uL (1.7-8.2); BASOPHILS % (AUTO) 0.3 % (0-2); EOSINOPHILS % (AUTO) 0.2 % (0-6); HEMATOCRIT 34.7 % (37.9-51.0); HEMOGLOBIN 11.9 g/dL (13.5-17.0); LYMPHOCYTES % (AUTO) 12.1 % (13-45); MEAN CORPUSCULAR HEMOGLOBIN 31.6 pg (27.0-33.4); MEAN CORPUSCULAR HGB CONC 34.3 g/dL (32.0-36.0); MEAN CORPUSCULAR VOLUME 92 fl (80-97); RED BLOOD COUNT 3.77 10^6/uL (4.35-5.55); RED CELL DISTRIBUTION WIDTH 12.9 % (11.5-14.0); SEGMENTED NEUTROPHILS % (AUTO) 82.4 % (42-78); WHITE BLOOD COUNT 14.3 10^3/uL (4.0-10.5)
[2017-10-02 05:32] LABS: ALANINE AMINOTRANSFERASE 77 U/L (21-72); ALBUMIN 3.6 g/dL (3.5-5.0); ALKALINE PHOSPHATASE 88 U/L (38-126); ANION GAP 11 (5-19); ASPARTATE AMINO TRANSFERASE 77 U/L (17-59); BILIRUBIN,DIRECT 0.4 mg/dL (0.0-0.4); BILIRUBIN,TOTAL 0.5 mg/dL (0.2-1.3); BLOOD UREA NITROGEN 8 mg/dL (7-20); CALCIUM 9.2 mg/dL (8.4-10.2); CARBON DIOXIDE 25 mmol/L (22-30); CHLORIDE 97 mmol/L (98-107); CREATININE RESULT 0.69 mg/dL (0.52-1.25); GLUCOSE 72 mg/dL (75-110); MAGNESIUM 1.9 mg/dL (1.6-2.3); POTASSIUM 3.5 mmol/L (3.6-5.0); TOTAL PROTEIN 6.2 g/dL (6.3-8.2)
[2017-10-02] MEDS: DIAZEPAM 5 MG TABLET PO SCH (06:36)
[2017-10-02] MEDS: LANSOPRAZOLE 30 MG TAB.RAP.DR PO SCH (06:36)
[2017-10-02] MEDS: HEPARIN SOD (PORCINE) 5,000 UNIT/ML 1 ML SYRINGE SUBCUT SCH (06:37)
[2017-10-02 08:52] VITALS: BP 156/78
[2017-10-02] MEDS ORDERED: HYDRALAZINE HCL 50 MG TABLET PO PRN (09:30)
[2017-10-02] MEDS: DOCUSATE SODIUM 100 MG CAPSULE PO SCH (09:34)
[2017-10-02] MEDS: MULTIVITAMIN TABLET PO SCH (09:35)
[2017-10-02] MEDS: FERROUS SULFATE 325 MG TABLET PO SCH (09:35)
[2017-10-02] MEDS: THIAMINE HCL 100 MG TABLET PO SCH (09:35)
[2017-10-02] MEDS: AMLODIPINE BESYLATE 10 MG TABLET PO SCH (09:35)
[2017-10-02] MEDS ORDERED: POTASSIUM CHLORIDE 20 MEQ/15 ML UDCUP PO ONE (09:40)
--- NOTE | 2017-10-02 09:56 | PDOC DISCHARGE SUMMARY ---
General - Admit/Disc Date/PCP Admission Date/Primary Care Provider: 09/29/17 23:40 Discharge Date: 10/02/17 - Discharge Diagnosis (1) Hyponatremia Is this a current diagnosis for this admission?: Yes Summary: Secondary to HCTZ and ETOH abuse: Resolving. Will not continue HCTZ. Pt will need to follow up with PCP for BP check and sodium check. (2) Alcohol abuse Is this a current diagnosis for this admission?: Yes Summary: Pt has done well. Will continue MVI. (3) COPD (chronic obstructive pulmonary disease) Is this a current diagnosis for this admission?: Yes Summary: Resolved. Will send pt home with Symbicort and Albuterol PRN. (4) Tobacco abuse Is this a current diagnosis for this admission?: Yes Summary: Encourage stop smoking. (5) Atherosclerosis of abdominal aorta Is this a current diagnosis for this admission?: Yes Summary: Pt will need to follow up with PCP. (6) Diastolic CHF Is this a current diagnosis for this admission?: Yes Summary: No acute issues. (7) Hypoalbuminemia Is this a current diagnosis for this admission?: Yes Summary: Encourage better PO intake. (8) Hypomagnesemia Is this a current diagnosis for this admission?: Yes Summary: Resolved. Pt was give magnesium replacement. - Additional Information Resuscitation Status: Full Code Discharge Diet: Cardiac Discharge Activity: Supervised Activity Home Medications: Thiamine HCl [Thiamine 100 mg Tablet] 100 mg PO DAILY #30 tablet 01/05/17 Ferrous Sulfate 324 mg PO DAILY 09/29/17 Multivitamin [Multivitamins] 1 tab PO DAILY 09/29/17 Omeprazole 40 mg PO DAILY 09/29/17 Trazodone HCl 25 mg PO QHS 09/29/17 Albuterol Sulfate [Proair Respiclick] 90 mcg IH 5XDP PRN #1 aer.[id number] 10/02/17 Amlodipine Besylate [Norvasc 10 mg Tablet] 10 mg PO DAILY #30 tablet 10/02/17 Budesonide/Formoterol Fumarate [Symbicort 160-4.5 Mcg Inhaler] 10.2 gm IH BID # 1 hfa.aer.ad 10/02/17 Hydralazine HCl [Apresoline 25 mg Tablet] 50 mg PO Q8H #180 tablet 10/02/17 Lisinopril [Prinivil 10 mg Tablet] 40 mg PO DAILY #120 tablet 10/02/17 History of Present Illness Patient complains of: Hyponatremia and COPD Exacerbation History of Present Illness: RAPHAEL BROWN is a 62 year old male presented to the hospital with Hyponatremia and mild COPD exacerbation. Hospital Course Hospital Course: Pt is a 62 year old who was admitted to the hospital for Hyponatremia secondary to HCTZ and ETOH dependence. Pt was placed on IVFs overnight which were discontinued the next following day due to sodium improving. Pt's steroids were discontinued due to pt's breathing improving. Pt's blood pressure medications were adjusted and pt had done well. Pt was noted to have low potassium which was corrected during hospital stay. Physical Exam Vital Signs: Temp Pulse Resp BP Pulse Ox 97.9 F 78 16 156/78 H 97 10/02/17 07:09 10/02/17 07:49 10/02/17 07:49 10/02/17 07:09 10/02/17 07:49 Intake & Output 10/01/17 10/02/17 10/03/17 06:59 06:59 06:59 Intake Total 2665 1937 Output Total 2255 1125 Balance 410 812 Weight 53.2 kg 52.8 kg General appearance: PRESENT: no acute distress, well-developed, well-nourished Head exam: PRESENT: atraumatic, normocephalic Eye exam: PRESENT: conjunctiva pink, EOMI. ABSENT: scleral icterus Ear exam: PRESENT: normal external ear exam Mouth exam: PRESENT: moist, tongue midline Neck exam: ABSENT: carotid bruit, JVD, lymphadenopathy, thyromegaly Respiratory exam: PRESENT: clear to auscultation pierre. ABSENT: rales, rhonchi, wheezes Cardiovascular exam: PRESENT: RRR. ABSENT: diastolic murmur, rubs, systolic murmur Pulses: PRESENT: normal dorsalis pedis pul Vascular exam: PRESENT: normal capillary refill GI/Abdominal exam: PRESENT: normal bowel sounds, soft. ABSENT: distended, guarding, mass, organolmegaly, rebound, tenderness Rectal exam: PRESENT: deferred Extremities exam: PRESENT: full ROM. ABSENT: calf tenderness, clubbing, pedal edema Neurological exam: PRESENT: alert, awake, oriented to person, oriented to place , oriented to time, oriented to situation, CN II-XII grossly intact. ABSENT: motor sensory deficit Psychiatric exam: PRESENT: appropriate affect, normal mood. ABSENT: homicidal ideation, suicidal ideation Skin exam: PRESENT: dry, intact, warm. ABSENT: cyanosis, rash Results Laboratory Results: 10/02/17 04:26 10/02/17 04:26 10/01/17 10/02/17 10/02/17 14:50 04:26 04:26 WBC 14.3 H RBC 3.77 L Hgb 11.9 L Hct 34.7 L MCV 92 MCH 31.6 MCHC 34.3 RDW 12.9 Plt Count 189 Seg Neutrophils % 82.4 H Lymphocytes % 12.1 L Monocytes % 5.0 Eosinophils % 0.2 Basophils % 0.3 Absolute Neutrophils 11.8 H Absolute Lymphocytes 1.7 Absolute Monocytes 0.7 Absolute Eosinophils 0.0 Absolute Basophils 0.0 Sodium 126.3 L 133.0 L Potassium 3.8 3.5 L Chloride 91 L 97 L Carbon Dioxide 22 25 Anion Gap 13 11 BUN 10 8 Creatinine 0.81 0.69 Est GFR ( Amer) > 60 > 60 Est GFR (Non-Af Amer) > 60 > 60 Glucose 168 H 72 L Calcium 9.1 9.2 Magnesium 1.9 Total Bilirubin 0.5 AST 77 H ALT 77 H Alkaline Phosphatase 88 Total Protein 6.2 L Albumin 3.6 Plan Time Spent: Greater than 30 Minutes
[2017-10-02] MEDS ORDERED: LISINOPRIL 10 MG TABLET PO SCH (10:00)
== END 2017-10-02 11:50 | disposition home health service (06) | DRG 641 ==
LOC: ER 19:12 → UNDOADMIN 23:40 → EH 23:40 → 3N 09-30 02:34
PROVIDERS: ADMIT Family Medicine; ATTEND Family Medicine
PROC: 3E0F73Z Introduction of Anti-inflammatory into Respiratory Tract, Via Natural or Artificial Opening (ICD-10-PCS; 2017-09-30)
PROC: 3E0234Z Introduction of Serum, Toxoid and Vaccine into Muscle, Percutaneous Approach (ICD-10-PCS; principal; 2017-10-02)
DX: E87.1 Hypo-osmolality and hyponatremia (principal); I50.32 Chronic diastolic (congestive) heart failure; T50.2X5A Adverse effect of carbonic-anhydrase inhibitors, benzothiadiazides and other diuretics, initial encounter; J44.9 Chronic obstructive pulmonary disease, unspecified; F10.20 Alcohol dependence, uncomplicated; I11.0 Hypertensive heart disease with heart failure; F17.210 Nicotine dependence, cigarettes, uncomplicated; K21.9 Gastro-esophageal reflux disease without esophagitis; I70.0 Atherosclerosis of aorta; K44.9 Diaphragmatic hernia without obstruction or gangrene; E88.09 Other disorders of plasma-protein metabolism, not elsewhere classified; E83.42 Hypomagnesemia; Z23 Encounter for immunization
CPT/HCPCS: 36415; 80048; 80053; 80307; 81001; 82570; 82962; 83735; 84300; 84443; 85025; 85610; 90686; 94640; 99284; J1644; J1815; J2405; J2920; J3411; J3475; J7030; J7060; J7620

== ENCOUNTER 2019-03-15 12:49 | Inpatient (IN) | payer OTHER ==
[2019-03-15 13:39] LABS: HEMATOCRIT 22.2 % (37.9-51.0); MEAN CORPUSCULAR HEMOGLOBIN 30.1 pg (27.0-33.4); MEAN CORPUSCULAR HGB CONC 35.1 g/dL (32.0-36.0); MEAN CORPUSCULAR VOLUME 86 fl (80-97); RED BLOOD COUNT 2.59 10^6/uL (4.35-5.55); RED CELL DISTRIBUTION WIDTH 14.5 % (11.5-14.0)
[2019-03-15 13:44] LABS: HEMOGLOBIN 7.8 g/dL (13.5-17.0); INTERNATIONAL RATION (INR) 0.94; PROTHROMBIN TIME 13.1 SEC (11.4-15.4)
[2019-03-15 13:45] LABS: PARTIAL THROMBOPLASTIN TIME 36.1 SEC (23.5-35.8)
--- NOTE | 2019-03-15 13:45 | RADIOLOGY REPORT (SQ) ---
EXAM DESCRIPTION: CHEST SINGLE VIEW COMPLETED DATE/TIME: 03/15/2019 1:36 pm REASON FOR STUDY: COUGH, AMS COMPARISON: 05/07/2014 EXAM PARAMETERS: NUMBER OF VIEWS: One view. TECHNIQUE: Single frontal radiographic view of the chest acquired. RADIATION DOSE: NA LIMITATIONS: None. FINDINGS: LUNGS AND PLEURA: No opacities, masses or pneumothorax. No pleural effusion. MEDIASTINUM AND HILAR STRUCTURES: No masses. Contour normal. HEART AND VASCULAR STRUCTURES: The heart size is borderline. There is no pulmonary edema. BONES: No acute findings. HARDWARE: None in the chest. OTHER: No other significant finding. IMPRESSION: Borderline heart size. No pulmonary edema. TECHNICAL DOCUMENTATION: JOB ID: [id number] [employer]- All Rights Reserved Reading location - IP/workstation name: [email or web address]
--- NOTE | 2019-03-15 13:48 | RADIOLOGY REPORT (SQ) ---
EXAM DESCRIPTION: CT HEAD WITHOUT COMPLETED DATE/TIME: 03/15/2019 1:39 pm REASON FOR STUDY: FALL COMPARISON: CT brain 01/01/2017 TECHNIQUE: Axial images acquired through the brain without intravenous contrast. Images reviewed wi th bone, brain and subdural windows. Additional sagittal and coronal reconstructions were generated. Images stored on PACS. All CT scanners at this facility use dose modulation, iterative reconstruction, and/or weight based d osing when appropriate to reduce radiation dose to as low as reasonably achievable (ALARA). [facility]: Dose Right [facility]: CareDose [facility]: Dose Right [facility]: Teradose 4D [facility]: [employer] RADIATION DOSE: CT Rad equipment meets quality standard of care and radiation dose reduction techniq ues were employed. CTDIvol: 53.2 mGy. DLP: 2061 mGy-cm. mGy. LIMITATIONS: Motion artifact, patient was scanned twice. FINDINGS: Motion artifact. On images without motion, no gross CT evidence of acute large territory ischemic change, acute intracranial hemorrhage, mass effect, or midline shift. Spotty white matter d isease. No depressed skull fracture. Opacified right maxillary sinus likely from chronic inflammatory change IMPRESSION: Limited study. Motion artifact. No acute findings. EVIDENCE OF ACUTE STROKE: NO. COMMENT: Quality ID # [id number]: Final reports with documentation of one or more dose reduction techniques (e.g., Automated exposure control, adjustment of the mA and/or kV according to patient size, use of iterative reconstruction technique) TECHNICAL DOCUMENTATION: JOB ID: [id number] [employer]- All Rights Reserved Reading location - IP/workstation name: [email or web address]
[2019-03-15 14:01] LABS: ABSOLUTE LYMPHOCYTES# (MANUAL) 0.8 10^3/uL (0.5-4.7); ABSOLUTE MONOCYTES # (MANUAL) 1.3 10^3/uL (0.1-1.4); ABSOLUTE NEUTROPHILS# (MANUAL) 8.9 10^3/uL (1.7-8.2); BASOPHILS % (MANUAL) 0 % (0-2); EOSINOPHILS % (MANUAL) 0 % (0-6); LYMPHOCYTES % (MANUAL) 7 % (13-45); MONOCYTES % (MANUAL) 12 % (3-13); SEGMENTED NEUTROPHILS % (MAN) 81 % (42-78); TOTAL CELLS COUNTED 100
[2019-03-15 14:03] LABS: ANISOCYTOSIS SLIGHT; PLATELET CLUMPS PRESENT; PLATELET COMMENT INCREASED; PLATELET COUNT 470 10^3/uL (150-450); PLATELET LARGE PRESENT; POIKILOCYTOSIS SLIGHT; POLYCHROMASIA SLIGHT; SCHISTOCYTES SLIGHT; TOXIC GRANULATION 1+
[2019-03-15 14:11] LABS: ALANINE AMINOTRANSFERASE 34 U/L (21-72); ALBUMIN 2.8 g/dL (3.5-5.0); ALKALINE PHOSPHATASE 95 U/L (38-126); ANION GAP 14 (5-19); ASPARTATE AMINO TRANSFERASE 39 U/L (17-59); BILIRUBIN,DIRECT 0.3 mg/dL (0.0-0.4); BILIRUBIN,TOTAL 0.5 mg/dL (0.2-1.3); BLOOD UREA NITROGEN 14 mg/dL (7-20); CALCIUM 8.7 mg/dL (8.4-10.2); CARBON DIOXIDE 27 mmol/L (22-30); CHLORIDE 71 mmol/L (98-107); CREATINE KINASE 62 U/L (55-170); GLUCOSE 91 mg/dL (75-110); POTASSIUM 3.7 mmol/L (3.6-5.0); TOTAL PROTEIN 5.8 g/dL (6.3-8.2)
[2019-03-15 14:13] LABS: ALCOHOL < 10 mg/dL (NONE DETECTED)
[2019-03-15 14:16] LABS: SODIUM 112.1 mmol/L (137-145)
[2019-03-15] MEDS ORDERED: NORMAL SALINE 1000 ML 1,000 ML IV ONE (14:17)
[2019-03-15 14:24] LABS: CREATINE KINASE MB 2.61 ng/mL (<4.55); TROPONIN I 0.014 ng/mL
--- NOTE | 2019-03-15 15:12 | ER Document Report ---
ED General - General Chief Complaint: Fall Stated Complaint: WEAKNESS Time Seen by Provider: 03/15/19 12:58 Notes: Patient is a 63-year-old male presented to the emergency department with chief complaint of possible altered mental status according to his son. Patient lives by himself, son came into town to visit him and states that he feels his father's altered. Patient is alert, oriented and answering all questions appropriately although he is a little slow to respond. Patient self reports that he drinks approximately 12 beers per day. States he has not had anything to drink today. Patient denies any complaints. TRAVEL OUTSIDE OF THE [place] IN LAST 30 DAYS: No - Related Data Allergies/Adverse Reactions: No Known Allergies Allergy (Verified 09/29/17 19:13) Past Medical History - General Information source: Patient - Social History Smoking Status: Former Smoker Frequency of alcohol use: Heavy Drug Abuse: None Family History: CAD Patient has suicidal ideation: No Patient has homicidal ideation: No - Past Medical History Cardiac Medical History: Reports: Hx Congestive Heart Failure, Hx Hypertension Pulmonary Medical History: Reports: Hx COPD, Hx Pneumonia, Hx Intubation, Hx Respiratory Failure Renal/ Medical History: Denies: Hx Peritoneal Dialysis Past Surgical History: Reports: Other - Bilateral mastoid surgery Perforated duodenal ulcer with repair - Immunizations Hx Diphtheria, Pertussis, Tetanus Vaccination: Yes - 4 years ago Physical Exam - Vital signs Vitals: Resp 20 03/15/19 12:55 - Notes Notes: PHYSICAL EXAMINATION: GENERAL: Ill-appearing, cachectic, disheveled. HEAD: Atraumatic, normocephalic. EYES: Pupils equal round and reactive to light, extraocular movements intact, sclera anicteric, conjunctiva are normal. ENT: Nares patent, oropharynx clear without exudates. Moist mucous membranes. NECK: Normal range of motion, supple without lymphadenopathy LUNGS: Breath sounds with scattered rhonchi. No wheezes or rales. HEART: Regular rate and rhythm without murmurs ABDOMEN: Soft, nontender, nondistended abdomen. No guarding, no rebound. No masses appreciated. Musculoskeletal: Normal range of motion, no pitting or edema. No cyanosis. NEUROLOGICAL: Cranial nerves grossly intact. Normal speech. Normal sensory, motor exams PSYCH: Normal mood, normal affect. SKIN: Warm, Dry, normal turgor, no rashes or lesions noted. Course - Re-evaluation Re-evalutation: CBC is unremarkable CMP shows a sodium of 112. Troponin is negative. Head CT was unremarkable. Chest x-ray showed borderline cardiomegaly. EKG shows a sinus rhythm, rate of 82, QTc 453, no ST segment elevations or depressions, this was reviewed by myself. Urinalysis is unremarkable. Patient has IV fluids infusing. Will consult hospitalist for admission. 03/15/19 1600 Patient was accepted for admission by Dr. Tesfaye, hospitalist. - Vital Signs Vital signs: Temp Pulse Resp BP Pulse Ox 97.9 F 17 111/60 99 03/15/19 13:02 03/15/19 13:45 03/15/19 13:45 03/15/19 13:45 - Laboratory Result Diagrams: 03/15/19 13:23 03/15/19 13:23 Laboratory results interpreted by me: 03/15/19 03/15/19 03/15/19 13:23 13:23 13:23 WBC 11.0 H RBC 2.59 L Hgb 7.8 L Hct 22.2 L RDW 14.5 H Plt Count 470 H Seg Neuts % (Manual) 81 H Lymphocytes % (Manual) 7 L Abs Neuts (Manual) 8.9 H APTT 36.1 H Sodium 112.1 L* Chloride 71 L Magnesium 1.4 L Total Protein 5.8 L Albumin 2.8 L Discharge - Discharge Clinical Impression: Hyponatremia Condition: Stable Disposition: ADMITTED INPATIENT Admitting Provider: Brien (Hospitalist)
--- NOTE | 2019-03-15 16:07 | PDOC H&P ---
History of Present Illness Admission Date/PCP: 03/15/19 15:52 History of Present Illness: RAPHAEL BROWN is a 63 year old male who is unable to provide a satisfactory history and so most of the history is obtained from the electronic record. Apparently he was brought in by his sister because he was "not acting right." His vital signs were stable and he is able to answer some questions but his responses are very delayed. He was found to have a sodium of 112. It is not known how long his sodium is been down that low. He is not on any medications that should lower his sodium. In the bag that he had with him at his bedside, the only medications he had were ferrous sulfate, omeprazole, and hydralazine. He also had a Symbicort inhaler and an albuterol inhaler. I asked him if he drinks alcohol and he said yes. He says he drinks at least a 12 pack of beer every day, his last drink was yesterday. Past Medical History Cardiac Medical History: Reports: Congestive Heart Failure, Hypertension Pulmonary Medical History: Reports: Chronic Obstructive Pulmonary Disease (COPD), Intubation, Pneumonia, Respiratory Failure Past Surgical History Past Surgical History: Reports: Other - Bilateral mastoid surgery Perforated duodenal ulcer with repair Social History Smoking Status: Unknown if Ever Smoked Frequency of Alcohol Use: Heavy Hx Recreational Drug Use: Yes Drugs: Marijuana Hx Prescription Drug Abuse: No Family History Family History: CAD Parental Family History Reviewed: No - Unable to obtain Children Family History Reviewed: No - Unable to obtain Sibling(s) Family History Reviewed.: No - Unable to obtain Medication/Allergy Allergies/Adverse Reactions: No Known Allergies Allergy (Verified 09/29/17 19:13) Review of Systems ROS unobtainable: Due to mental status Physical Exam Vital Signs: Temp Pulse Resp BP Pulse Ox 97.9 F 17 111/60 99 03/15/19 13:02 03/15/19 13:45 03/15/19 13:45 03/15/19 13:45 Intake & Output 03/14/19 03/15/19 03/16/19 06:59 06:59 06:59 Weight 51.5 kg General appearance: PRESENT: no acute distress, cooperative, disheveled, other - Responses are very delayed, he is not able to answer all questions, and he looks a little confused Head exam: PRESENT: atraumatic, normocephalic Eye exam: PRESENT: EOMI, PERRLA. ABSENT: conjunctival injection, nystagmus, scleral icterus Mouth exam: PRESENT: dry mucosa, neck supple Teeth exam: PRESENT: poor dentation Throat exam: ABSENT: post pharyngeal erythema Neck exam: PRESENT: full ROM. ABSENT: carotid bruit, JVD, lymphadenopathy, meningismus, tenderness, thyromegaly Respiratory exam: PRESENT: clear to auscultation pierre, symmetrical, unlabored. ABSENT: accessory muscle use, crackles, prolonged expiratory phas, rhonchi, tachypnea, wheezes Cardiovascular exam: PRESENT: RRR, +S1, +S2. ABSENT: diastolic murmur, systolic murmur Pulses: PRESENT: normal carotid pulses Vascular exam: PRESENT: normal capillary refill GI/Abdominal exam: PRESENT: normal bowel sounds, soft. ABSENT: distended, guarding, rebound, tenderness Extremities exam: ABSENT: clubbing, pedal edema Musculoskeletal exam: PRESENT: normal inspection. ABSENT: deformity Neurological exam: PRESENT: altered, awake, oriented to person, other - Unable to adequately assess his cranial nerves, due to his mental status, but he did not appear to have any focal or lateralizing deficits. ABSENT: oriented to place, oriented to time, oriented to situation Psychiatric exam: PRESENT: flat affect Skin exam: PRESENT: dry, warm Results Laboratory Results: 03/15/19 13:23 03/15/19 13:23 03/15/19 03/15/19 13:23 13:23 WBC 11.0 H RBC 2.59 L Hgb 7.8 L Hct 22.2 L MCV 86 MCH 30.1 MCHC 35.1 RDW 14.5 H Plt Count 470 H Seg Neutrophils % Not Reportable Lymphocytes % Not Reportable Monocytes % Not Reportable Eosinophils % Not Reportable Basophils % Not Reportable Absolute Neutrophils Not Reportable Absolute Lymphocytes Not Reportable Absolute Monocytes Not Reportable Absolute Eosinophils Not Reportable Absolute Basophils Not Reportable Sodium 112.1 L* Potassium 3.7 Chloride 71 L Carbon Dioxide 27 Anion Gap 14 BUN 14 Creatinine 0.57 Est GFR ( Amer) > 60 Est GFR (Non-Af Amer) > 60 Glucose 91 Calcium 8.7 Magnesium 1.4 L Total Bilirubin 0.5 AST 39 ALT 34 Alkaline Phosphatase 95 Total Protein 5.8 L Albumin 2.8 L 03/15/19 03/15/19 13:23 13:23 Creatine Kinase 62 CK-MB (CK-2) 2.61 Troponin I 0.014 Impressions: Head CT 03/15/19 13:19 IMPRESSION: Limited study. Motion artifact. No acute findings. EVIDENCE OF ACUTE STROKE: NO. Chest X-Ray 03/15/19 13:20 IMPRESSION: Borderline heart size. No pulmonary edema. Assessment and Plan - Diagnosis (1) Hyponatremia Is this a current diagnosis for this admission?: Yes Plan: I called Dr. Steiner as well as in the ER with this patient. She is going to see him in consultation. She recommended starting 3% saline at 30 mils an hour, with every 2 hour metabolic panels. Put in a order for a PICC line to be placed. He is going to be admitted to the ICU. (2) Alcohol abuse Is this a current diagnosis for this admission?: Yes Plan: Got him on PRN Ativan for withdrawal symptoms, will give him some thiamine and folic acid supplementation (3) Anemia Qualifiers: Anemia type: iron deficiency Iron deficiency anemia type: inadequate dietary iron intake Qualified Code(s): D50.8 - Other iron deficiency anemias Is this a current diagnosis for this admission?: Yes Plan: We will continue his iron supplement, will transfuse if needed (4) COPD (chronic obstructive pulmonary disease) Qualifiers: COPD type: chronic bronchitis Is this a current diagnosis for this admission?: Yes Plan: We will continue his Symbicort and albuterol - Time Time Spent with patient: 70 minutes Time Spent with patient: 35 or more minutes - Inpatient Certification Based on my medical assessment, after consideration of the patient's comorbidities, presenting symptoms, or acuity I expect that the services needed warrant INPATIENT care.: Yes I certify that my determination is in accordance with my understanding of Medicare's requirements for reasonable and necessary INPATIENT services [42 CFR 412.3e].: Yes Medical Necessity: Significant Comorbidiites Make Outpatient Treatment Too Risky, Need Close Monitoring Due to Risk of Patient Decompensation, Need For IV Fluids, Need For Continuous Telemetry Monitoring, Need for Neurological Checks, Risk of Complication if Not Cared For in Hospital
--- NOTE | 2019-03-15 16:23 | EKG REPORT ---
SEVERITY:- NORMAL ECG - SINUS RHYTHM : Confirmed by: Corey Medina MD 15-Mar-2019 16:21:41
[2019-03-15 16:52] LABS: APPEARANCE,URINE SLIGHTLY-CLOUDY; BILIRUBIN,URINE NEGATIVE (NEGATIVE); COLOR,URINE YELLOW; GLUCOSE, URINE NEGATIVE (NEGATIVE); KETONES,URINE NEGATIVE (NEGATIVE); LEUKOCYTE ESTERASE,URINE NEGATIVE (NEGATIVE); NITRITE,URINE NEGATIVE (NEGATIVE); PROTEIN,URINE NEGATIVE (NEGATIVE); URINE SPECIFIC GRAVITY 1.005; UROBILINOGEN,URINE NEGATIVE mg/dL (<2.0)
[2019-03-15 17:04] LABS: ANION GAP 12 (5-19); BLOOD UREA NITROGEN 12 mg/dL (7-20); CALCIUM 8.7 mg/dL (8.4-10.2); CARBON DIOXIDE 27 mmol/L (22-30); CHLORIDE 76 mmol/L (98-107); GLUCOSE 87 mg/dL (75-110); POTASSIUM 3.6 mmol/L (3.6-5.0)
[2019-03-15 17:06] LABS: URINE AMPHETAMINES SCREEN NEGATIVE; URINE BARBITURATES SCREEN NEGATIVE; URINE BENZODIAZEPINES SCREEN NEGATIVE; URINE COCAINE SCREEN NEGATIVE; URINE MARIJUANA (THC) SCREEN NEGATIVE; URINE METHADONE SCREEN NEGATIVE; URINE PHENCYCLIDINE SCREEN NEGATIVE
[2019-03-15 17:11] LABS: SODIUM 115.3 mmol/L (137-145)
[2019-03-15] MEDS ORDERED: LIDOCAINE 1% INJ-PF (10 MG/ML) 30 ML SDV ONE (18:05)
--- NOTE | 2019-03-15 18:28 | Operative Report ---
Nonrecallable Operative Report DATE OF SURGERY: 03/15/19 PREOPERATIVE DIAGNOSIS: hyponatremia. need IV access POSTOPERATIVE DIAGNOSIS: same OPERATION: Right subclavian central venous triple lumen catheter SURGEON: JARAD DEL TORO ANESTHESIA: Local - 20 mL 1% lidocaine without epinephrine TISSUE REMOVED OR ALTERED: n/a COMPLICATIONS: n/a ESTIMATED BLOOD LOSS: negleable INTRAOPERATIVE FINDINGS: as above PROCEDURE: see dictation
[2019-03-15] MEDS ORDERED: SODIUM CHLORIDE 3% 500 ML IV ONE (18:30)
--- NOTE | 2019-03-15 18:40 | RADIOLOGY REPORT (SQ) ---
EXAM DESCRIPTION: CHEST SINGLE VIEW COMPLETED DATE/TIME: 03/15/2019 6:31 pm REASON FOR STUDY: verify placement of central line COMPARISON: 03/15/2019 EXAM PARAMETERS: NUMBER OF VIEWS: One view. TECHNIQUE: Single frontal radiographic view of the chest acquired. RADIATION DOSE: NA LIMITATIONS: None. FINDINGS: LUNGS AND PLEURA: No opacities, masses or pneumothorax. No pleural effusion. MEDIASTINUM AND HILAR STRUCTURES: No masses. Contour normal. HEART AND VASCULAR STRUCTURES: Heart normal in size. Normal vasculature. BONES: No acute findings. HARDWARE: A right subclavian catheter has its tip in the superior vena cava near the right atrium. OTHER: No other significant finding. IMPRESSION: Catheter placement. No acute pulmonary findings. TECHNICAL DOCUMENTATION: JOB ID: [id number] [employer]- All Rights Reserved Reading location - IP/workstation name: [email or web address]
--- NOTE | 2019-03-15 18:41 | PDOC CONSULTATION ---
Consultation Consult Date: 03/15/19 Provider Consulted: JARAD DEL TORO History of Present Illness Admission Date/PCP: 03/15/19 15:52 Patient complains of: hyponatremia History of Present Illness: RAPHAEL BROWN is a 63 year old male confused, found to have severe hyponatremia (112) in need of CVL access for fluid and medications. Past Medical History Cardiac Medical History: Reports: Congestive Heart Failure, Hypertension Pulmonary Medical History: Reports: Chronic Obstructive Pulmonary Disease (COPD), Intubation, Pneumonia, Respiratory Failure Past Surgical History Past Surgical History: Reports: Other - Bilateral mastoid surgery Perforated duodenal ulcer with repair Social History Smoking Status: Former Smoker Frequency of Alcohol Use: Heavy Hx Recreational Drug Use: Yes Drugs: Marijuana Hx Prescription Drug Abuse: No - Advance Directive Resuscitation Status: Full Code Family History Family History: CAD Parental Family History Reviewed: No Children Family History Reviewed: No Sibling(s) Family History Reviewed.: No Medication/Allergy Home Medications: Hydralazine HCl [Apresoline 25 mg Tablet] 25 mg PO Q8 03/15/19 Omeprazole 40 mg PO DAILY 03/15/19 Allergies/Adverse Reactions: No Known Allergies Allergy (Verified 09/29/17 19:13) Physical Exam Vital Signs: Temp Pulse Resp BP Pulse Ox 97.9 F 12 130/65 H 100 03/15/19 13:02 03/15/19 17:01 03/15/19 17:01 03/15/19 17:01 Intake & Output 03/14/19 03/15/19 03/16/19 06:59 06:59 06:59 Weight 51.5 kg General appearance: PRESENT: no acute distress, other - confused Mouth exam: PRESENT: neck supple Neck exam: PRESENT: full ROM Results Laboratory Results: 03/15/19 13:23 03/15/19 16:33 03/15/19 03/15/19 03/15/19 13:23 13:23 13:23 WBC 11.0 H RBC 2.59 L Hgb 7.8 L Hct 22.2 L MCV 86 MCH 30.1 MCHC 35.1 RDW 14.5 H Plt Count 470 H Seg Neutrophils % Not Reportable Lymphocytes % Not Reportable Monocytes % Not Reportable Eosinophils % Not Reportable Basophils % Not Reportable Absolute Neutrophils Not Reportable Absolute Lymphocytes Not Reportable Absolute Monocytes Not Reportable Absolute Eosinophils Not Reportable Absolute Basophils Not Reportable Sodium 112.1 L* Potassium 3.7 Chloride 71 L Carbon Dioxide 27 Anion Gap 14 BUN 14 Creatinine 0.57 Est GFR ( Amer) > 60 Est GFR (Non-Af Amer) > 60 Glucose 91 Calcium 8.7 Magnesium 1.4 L Total Bilirubin 0.5 AST 39 ALT 34 Alkaline Phosphatase 95 Total Protein 5.8 L Albumin 2.8 L Urine Color YELLOW Urine Appearance SLIGHTLY-CLOUDY Urine pH 6.0 Ur Specific [place] 1.005 Urine Protein NEGATIVE Urine Glucose (UA) NEGATIVE Urine Ketones NEGATIVE Urine Blood NEGATIVE Urine Nitrite NEGATIVE Ur Leukocyte Esterase NEGATIVE Urine WBC (Auto) 0 Urine RBC (Auto) 0 03/15/19 16:33 WBC RBC Hgb Hct MCV MCH MCHC RDW Plt Count Seg Neutrophils % Lymphocytes % Monocytes % Eosinophils % Basophils % Absolute Neutrophils Absolute Lymphocytes Absolute Monocytes Absolute Eosinophils Absolute Basophils Sodium 115.3 L* Potassium 3.6 Chloride 76 L Carbon Dioxide 27 Anion Gap 12 BUN 12 Creatinine 0.55 Est GFR ( Amer) > 60 Est GFR (Non-Af Amer) > 60 Glucose 87 Calcium 8.7 Magnesium Total Bilirubin AST ALT Alkaline Phosphatase Total Protein Albumin Urine Color Urine Appearance Urine pH Ur Specific [place] Urine Protein Urine Glucose (UA) Urine Ketones Urine Blood Urine Nitrite Ur Leukocyte Esterase Urine WBC (Auto) Urine RBC (Auto) 03/15/19 03/15/19 13:23 13:23 Creatine Kinase 62 CK-MB (CK-2) 2.61 Troponin I 0.014 Impressions: Head CT 03/15/19 13:19 IMPRESSION: Limited study. Motion artifact. No acute findings. EVIDENCE OF ACUTE STROKE: NO. Chest X-Ray 03/15/19 13:20 IMPRESSION: Borderline heart size. No pulmonary edema. Assessment & Plan - Diagnosis (1) Need for intravenous access Is this a current diagnosis for this admission?: Yes - Plan Summary Plan Summary: A/ need of IV access for the administration of medications and fluids P/ Placement of a triple lumen intravenous catheter via right subclavian vein Procedure, risks, benefis, complicatons, explained to the patient, his questions were answered and he decides to proceed
[2019-03-15] MEDS: MAGNESIUM SULFATE/D5W 1 GM/100 ML RTUPB IV SCH ×2 (19:35→20:39)
--- NOTE | 2019-03-15 19:59 | PDOC CONSULTATION ---
Consultation Consult Date: 03/15/19 Provider Consulted: CORA BREWER Consult reason:: I was asked to see the patient due to severe hyponatremia. History of Present Illness Admission Date/PCP: 03/15/19 15:52 History of Present Illness: RAPHAEL BROWN is a 63 year old male with history of hypertension, CHF, and alcoholism who was brought into the emergency room by his sister because he was noted to be "not acting right". Patient is a very poor historian and could not really tell me much of the history. He just told me he was not feeling good and he was weak so he called his sister to bring him to the emergency room. He said he has good appetite and drink 4 glasses of water at home. He admits to drinking a 12 pack of beer daily. He denies any nausea, vomiting, diarrhea, confusion nor unsteadiness. There was no note of any seizure activity. His initial sodium when he came in was 112.1 and a repeat one was 115.3. His urine is pretty dilute with specific gravity 1.005. His CT scan of the head and chest x-ray were both negative for any abnormality. Review of records showed that the patient has had similar episode in September 2017 when he had a sodium level of 116. Past Medical History Cardiac Medical History: Reports: CHF-Systolic, Hypertension-primary Pulmonary Medical History: Reports: Chronic Obstructive Pulmonary Disease (COPD), Intubation, Pneumonia, Respiratory Failure Past Surgical History Past Surgical History: Reports: Other - Bilateral mastoid surgery Perforated duodenal ulcer with repair Social History Information Source: [facility] Records Smoking Status: Former Smoker Frequency of Alcohol Use: Heavy Hx Recreational Drug Use: Yes Drugs: Marijuana Hx Prescription Drug Abuse: No - Advance Directive Resuscitation Status: Full Code Family History Family History: CAD Parental Family History Reviewed: Yes Children Family History Reviewed: Unknown Sibling(s) Family History Reviewed.: Yes Medication/Allergy Home Medications: Hydralazine HCl [Apresoline 25 mg Tablet] 25 mg PO Q8 03/15/19 Omeprazole 40 mg PO DAILY 03/15/19 Allergies/Adverse Reactions: No Known Allergies Allergy (Verified 09/29/17 19:13) Review of Systems All systems: reviewed and no additional remarkable complaints except as stated Review of Systems: Constitutional: ABSENT: chills, fatigue, fever(s), headache(s), weight gain, weight loss; reports weakness Eyes: ABSENT: visual disturbances Ears: ABSENT: hearing changes Cardiovascular: ABSENT: chest pain, dyspnea on exertion, edema, orthropnea, palpitations Respiratory: ABSENT: cough, dyspnea, hemoptysis Gastrointestinal: ABSENT: abdominal pain, constipation, diarrhea, hematemesis, hematochezia, nausea, vomiting Genitourinary: ABSENT: dysuria, hematuria Musculoskeletal: ABSENT: joint swelling Integumentary: ABSENT: rash, wounds Neurological: ABSENT: abnormal gait, abnormal speech, confusion, dizziness, focal weakness, numbness, syncope Psychiatric: ABSENT: anxiety, depression Endocrine: ABSENT: cold intolerance, heat intolerance, polydipsia, polyuria Hematologic/Lymphatic: ABSENT: easy bleeding, easy bruising, lymphadenopathy Physical Exam Vital Signs: Temp Pulse Resp BP Pulse Ox 97.9 F 12 130/65 H 100 03/15/19 13:02 03/15/19 17:01 03/15/19 17:01 03/15/19 17:01 Intake & Output 03/14/19 03/15/19 03/16/19 06:59 06:59 06:59 Intake Total 1000 Balance 1000 Weight 51.5 kg Exam: General appearance: No acute distress, cooperative, well-developed, well- nourished Head exam: PRESENT: atraumatic, normocephalic Eye exam: PRESENT: Conjunctiva pale, EOMI, PERRLA. ABSENT: conjunctival injection, scleral icterus Mouth exam: PRESENT: moist, neck supple, tongue midline Neck exam: PRESENT: full ROM. ABSENT: carotid bruit, JVD, lymphadenopathy, thyromegaly Respiratory exam: PRESENT: clear to auscultation bilaterally. ABSENT: rales, rhonchi, stridor, wheezes Cardiovascular exam: PRESENT: RRR, +S1, +S2. ABSENT: systolic murmur Pulses: PRESENT: normal radial pulses, normal dorsalis pedis pulses GI/Abdominal exam: PRESENT: normal bowel sounds, soft. ABSENT: guarding, mass, tenderness Rectal exam: Deferred Extremities exam: PRESENT: full ROM. ABSENT: calf tenderness, pedal edema Musculoskeletal: PRESENT: full ROM. ABSENT: deformity Neurological exam: PRESENT: alert, Awake, Oriented to person, Oriented to place, Oriented to time, reflexes normal, CN II-XII grossly intact. ABSENT: motor sensory deficit Psychiatric exam: PRESENT: appropriate affect, normal mood. ABSENT: homicidal ideation, suicidal ideation Skin exam: PRESENT: intact, dry, warm. ABSENT: rash Results Laboratory Results: 03/15/19 13:23 03/15/19 16:33 03/15/19 03/15/19 03/15/19 13:23 13:23 13:23 WBC 11.0 H RBC 2.59 L Hgb 7.8 L Hct 22.2 L MCV 86 MCH 30.1 MCHC 35.1 RDW 14.5 H Plt Count 470 H Seg Neutrophils % Not Reportable Lymphocytes % Not Reportable Monocytes % Not Reportable Eosinophils % Not Reportable Basophils % Not Reportable Absolute Neutrophils Not Reportable Absolute Lymphocytes Not Reportable Absolute Monocytes Not Reportable Absolute Eosinophils Not Reportable Absolute Basophils Not Reportable Sodium 112.1 L* Potassium 3.7 Chloride 71 L Carbon Dioxide 27 Anion Gap 14 BUN 14 Creatinine 0.57 Est GFR ( Amer) > 60 Est GFR (Non-Af Amer) > 60 Glucose 91 Calcium 8.7 Magnesium 1.4 L Total Bilirubin 0.5 AST 39 ALT 34 Alkaline Phosphatase 95 Total Protein 5.8 L Albumin 2.8 L Urine Color YELLOW Urine Appearance SLIGHTLY-CLOUDY Urine pH 6.0 Ur Specific [place] 1.005 Urine Protein NEGATIVE Urine Glucose (UA) NEGATIVE Urine Ketones NEGATIVE Urine Blood NEGATIVE Urine Nitrite NEGATIVE Ur Leukocyte Esterase NEGATIVE Urine WBC (Auto) 0 Urine RBC (Auto) 0 03/15/19 16:33 WBC RBC Hgb Hct MCV MCH MCHC RDW Plt Count Seg Neutrophils % Lymphocytes % Monocytes % Eosinophils % Basophils % Absolute Neutrophils Absolute Lymphocytes Absolute Monocytes Absolute Eosinophils Absolute Basophils Sodium 115.3 L* Potassium 3.6 Chloride 76 L Carbon Dioxide 27 Anion Gap 12 BUN 12 Creatinine 0.55 Est GFR ( Amer) > 60 Est GFR (Non-Af Amer) > 60 Glucose 87 Calcium 8.7 Magnesium Total Bilirubin AST ALT Alkaline Phosphatase Total Protein Albumin Urine Color Urine Appearance Urine pH Ur Specific [place] Urine Protein Urine Glucose (UA) Urine Ketones Urine Blood Urine Nitrite Ur Leukocyte Esterase Urine WBC (Auto) Urine RBC (Auto) 03/15/19 03/15/19 13:23 13:23 Creatine Kinase 62 CK-MB (CK-2) 2.61 Troponin I 0.014 Impressions: Head CT 03/15/19 13:19 IMPRESSION: Limited study. Motion artifact. No acute findings. EVIDENCE OF ACUTE STROKE: NO. Chest X-Ray 03/15/19 13:20 IMPRESSION: Borderline heart size. No pulmonary edema. Assessment & Plan - Diagnosis (1) Hyponatremia Is this a current diagnosis for this admission?: Yes Plan: This is most likely secondary to intake of hypotonic fluids including the beer more than electrolyte containing fluids. We will check for other causes. We will check the patient's urine sodium, urine osmolality, plasma osmolality, TSH, cortisol and uric acid. Since the patient's sodium level is severe we are going to start with 3% normal saline and check a BMP every 2 hours. Goal is not to correct the sodium too fa st and not more than 10 mEq in 24 hours. Patient will be monitored very closely in the ICU. Discussed with Dr. Brewer earlier. (2) Alcohol abuse Is this a current diagnosis for this admission?: Yes (3) Anemia Qualifiers: Anemia type: iron deficiency Iron deficiency anemia type: inadequate dietary iron intake Qualified Code(s): D50.8 - Other iron deficiency anemias Is this a current diagnosis for this admission?: Yes - Notes Notes: Thank you very much for this consultation. We will follow patient with you. - Time Time Spent: 50 to 70 Minutes
[2019-03-15 20:39] LABS: ANION GAP 11 (5-19); BLOOD UREA NITROGEN 11 mg/dL (7-20); CALCIUM 8.1 mg/dL (8.4-10.2); CARBON DIOXIDE 26 mmol/L (22-30); CHLORIDE 81 mmol/L (98-107); GLUCOSE 130 mg/dL (75-110); POTASSIUM 3.2 mmol/L (3.6-5.0); URIC ACID 4.6 mg/dL (3.5-8.5)
[2019-03-15 20:49] LABS: SODIUM 118.3 mmol/L (137-145)
[2019-03-15 20:56] LABS: URINE SODIUM < 5 mmol/L (30-90)
[2019-03-15] MEDS ORDERED: DIAZEPAM INJ 10 MG/2 ML DISP.SYRIN IV PRN (21:01)
[2019-03-15 21:10] LABS: OSMOLALITY,URINE 103 mOsm/kg (300-900)
--- NOTE | 2019-03-15 21:14 | OPERATIVE REPORT E ---
Operative Report NAME: RAPHAEL BROWN : 1955 AGE: 63Y DATE OF SURGERY: 03/15/2019 ROOM: 612 PREOPERATIVE DIAGNOSES: 1. NEED FOR IV ACCESS FOR ADMINISTRATION OF MEDICATIONS AND FLUIDS. 2. SEVERE HYPONATREMIA. POSTOPERATIVE DIAGNOSES: 1. NEED FOR IV ACCESS FOR ADMINISTRATION OF MEDICATIONS AND FLUIDS. 2. SEVERE HYPONATREMIA. OPERATION: Placement of right subclavian vein central venous line. SURGEON: JARAD DEL TORO M.D. COMPLICATIONS: None. ANESTHESIA: Local 20 mL of 1% lidocaine with epinephrine. INDICATIONS AND FINDINGS: This is a 63-year-old male seen in the emergency room with severe hyponatremia of 112. He needs administration of hypertonic sodium chloride solution and he requires placement of a central venous line for administration of the fluids. Procedure, risks, benefits and complications explained to the patient. He understands and decided to proceed. PROCEDURE: The procedure was done in the emergency room at bedside. The patient was placed in supine Trendelenburg position. A towel was placed in between his scapulae to arch his chest. The right side of his chest and neck were prepped and draped in usual fashion. The area just below the midportion of the clavicle was infiltrated with lidocaine. A 16-gauge needle was then used to easily cannulate the right subclavian vein. A guidewire was inserted through the needle into the superior vena cava. Needle was removed and the insertion point of the guidewire enlarged with a #11 blade and tissue dilator, which was then removed. A triple-lumen catheter was inserted over the guidewire into the superior vena cava up to 16 cm. The guidewire was then removed. Each port was aspirated and flushed with normal saline without difficulty. The catheter was secured in place with sterile sutures and sterile dressings. The patient tolerated the procedure well and a chest x-ray was requested to confirm position of the line. DICTATING PHYSICIAN: JARAD DEL TORO M.D. [id number] PHY#: [id number] ID: [id number] JOB#: [id number] ACCT: [id number] cc:JARAD DEL TORO M.D. >
[2019-03-15] MEDS: HEPARIN SOD (PORCINE) 5,000 UNIT/ML 1 ML SYRINGE SUBCUT SCH (22:25)
[2019-03-15 22:53] LABS: ANION GAP 10 (5-19); BLOOD UREA NITROGEN 11 mg/dL (7-20); CALCIUM 7.9 mg/dL (8.4-10.2); CARBON DIOXIDE 26 mmol/L (22-30); CHLORIDE 81 mmol/L (98-107); GLUCOSE 101 mg/dL (75-110); POTASSIUM 3.3 mmol/L (3.6-5.0)
[2019-03-15] MEDS: POTASSIUM CHLORIDE 20 MEQ/50 ML RTU IV SCH (23:28)
[2019-03-15] MEDS: IPRATROPIUM BROMIDE 0.02% NEB 0.5 MG/2.5 ML AMPUL NEB SCH (23:55)
[2019-03-15] MEDS: LEVALBUTEROL HCL NEB 1.25 MG/3 ML AMPUL NEB SCH (23:55)
[2019-03-16] MEDS: NORMAL SALINE 1000 ML 1,000 ML IV PRN ×3 (00:09→10:57)
[2019-03-16 00:36] LABS: ANION GAP 9 (5-19); BLOOD UREA NITROGEN 11 mg/dL (7-20); CALCIUM 7.9 mg/dL (8.4-10.2); CARBON DIOXIDE 26 mmol/L (22-30); CHLORIDE 82 mmol/L (98-107); GLUCOSE 103 mg/dL (75-110); POTASSIUM 3.2 mmol/L (3.6-5.0)
[2019-03-16 00:44] LABS: SODIUM 117.2 mmol/L (137-145)
[2019-03-16] MEDS: POTASSIUM CHLORIDE 20 MEQ/50 ML RTU IV SCH (01:15)
[2019-03-16 02:28] LABS: ANION GAP 8 (5-19); BLOOD UREA NITROGEN 11 mg/dL (7-20); CALCIUM 7.8 mg/dL (8.4-10.2); CARBON DIOXIDE 27 mmol/L (22-30); CHLORIDE 86 mmol/L (98-107); GLUCOSE 109 mg/dL (75-110); POTASSIUM 3.7 mmol/L (3.6-5.0)
[2019-03-16] MEDS: LORAZEPAM INJ 2 MG/1 ML VIAL IV PRN ×4 (02:41→23:42)
[2019-03-16 03:04] LABS: SODIUM 120.8 mmol/L (137-145)
[2019-03-16] MEDS: HEPARIN SOD (PORCINE) 5,000 UNIT/ML 1 ML SYRINGE SUBCUT SCH ×3 (05:00→21:56)
[2019-03-16 06:46] LABS: ANION GAP 7 (5-19); BLOOD UREA NITROGEN 9 mg/dL (7-20); CALCIUM 7.7 mg/dL (8.4-10.2); CARBON DIOXIDE 26 mmol/L (22-30); CHLORIDE 90 mmol/L (98-107); GLUCOSE 110 mg/dL (75-110); POTASSIUM 3.7 mmol/L (3.6-5.0); SODIUM 122.7 mmol/L (137-145)
[2019-03-16] MEDS: LEVALBUTEROL HCL NEB 1.25 MG/3 ML AMPUL NEB SCH ×2 (08:34→15:41)
[2019-03-16] MEDS: IPRATROPIUM BROMIDE 0.02% NEB 0.5 MG/2.5 ML AMPUL NEB SCH ×2 (08:35→15:41)
[2019-03-16] MEDS: BUDESONIDE NEB 0.5 MG/2 ML AMPUL NEB SCH ×2 (08:35→20:57)
[2019-03-16] MEDS: POTASSIUM CHLORIDE 10 MEQ CAPSULE.ER PO SCH ×2 (09:59→18:55)
[2019-03-16] MEDS ORDERED: THIAMINE HCL 100 MG TABLET PO SCH (10:00)
[2019-03-16] MEDS ORDERED: FOLIC ACID 1 MG TABLET PO SCH (10:00)
[2019-03-16 13:07] LABS: ANION GAP 7 (5-19); BLOOD UREA NITROGEN 8 mg/dL (7-20); CALCIUM 7.9 mg/dL (8.4-10.2); CARBON DIOXIDE 24 mmol/L (22-30); CHLORIDE 94 mmol/L (98-107); GLUCOSE 129 mg/dL (75-110); POTASSIUM 3.6 mmol/L (3.6-5.0); SODIUM 125.3 mmol/L (137-145)
--- NOTE | 2019-03-16 16:39 | PDOC PROGRESS REPORT ---
Subjective Progress Note for:: 03/16/19 Subjective:: RAPHAEL BROWN is a 63 year old male who is unable to provide a satisfactory history and so most of the history is obtained from the electronic record. Apparently he was brought in by his sister because he was "not acting right." His vital signs were stable and he is able to answer some questions but his responses are very delayed. He was found to have a sodium of 112. It is not known how long his sodium is been down that low. He is not on any medications that should lower his sodium. In the bag that he had with him at his bedside, the only medications he had were ferrous sulfate, omeprazole, and hydralazine. He also had a Symbicort inhaler and an albuterol inhaler. I asked him if he drinks alcohol and he said yes. He says he drinks at least a 12 pack of beer every day, his last drink was yesterday. 03/16/2019. No acute events overnight. Awake and alert after does not provide much history except that he is feeling fine. Has any fever, chills, nausea, vomiting constipation or any urinary symptoms. SBP 484748, T-max 99.1, pulse 90s, RR 15, SPO2 97% on 2 L FiO2 21%. Sodium 125.3, potassium 3.6, bicarb 24, creatinine 0.5T his is most likely secondary to intake of hypotonic fluids including the beer more than electrolyte containing fluids. We will check for other causes. We will check the patient's urine sodium, urine osmolality, plasma osmolality, TSH, cortisol and uric acid. Reason For Visit: SEVERE HYPONATREMIA Physical Exam Vital Signs: Temp Pulse Resp BP Pulse Ox 99.1 F 91 15 132/82 H 97 03/16/19 12:00 03/16/19 15:42 03/16/19 15:42 03/16/19 13:43 03/16/19 15:42 Intake & Output 03/15/19 03/16/19 03/17/19 06:59 06:59 06:59 Intake Total 2602 996 Output Total 860 325 Balance 1742 671 Weight 49.3 kg General appearance: PRESENT: no acute distress, thin Head exam: PRESENT: atraumatic, normocephalic Respiratory exam: PRESENT: clear to auscultation pierre. ABSENT: rales, rhonchi, wheezes Cardiovascular exam: PRESENT: RRR. ABSENT: diastolic murmur, rubs, systolic murmur GI/Abdominal exam: PRESENT: normal bowel sounds, soft. ABSENT: distended, guarding, mass, organolmegaly, rebound, tenderness Extremities exam: PRESENT: full ROM. ABSENT: calf tenderness, clubbing, pedal edema Neurological exam: PRESENT: alert, awake, oriented to person, oriented to place, oriented to time, oriented to situation, CN II-XII grossly intact. ABSENT: motor sensory deficit Results Laboratory Results: 03/15/19 13:23 03/16/19 12:40 03/15/19 03/15/19 03/15/19 13:23 16:33 20:02 Sodium 115.3 L* 118.3 L* Potassium 3.6 3.2 L Chloride 76 L 81 L Carbon Dioxide 27 26 Anion Gap 12 11 BUN 12 11 Creatinine 0.55 0.56 Est GFR ( Amer) > 60 > 60 Est GFR (Non-Af Amer) > 60 > 60 Glucose 87 130 H Serum Osmolality Uric Acid 4.6 Calcium 8.7 8.1 L Magnesium TSH Urine Color YELLOW Urine Appearance SLIGHTLY-CLOUDY Urine pH 6.0 Ur Specific [place] 1.005 Urine Protein NEGATIVE Urine Glucose (UA) NEGATIVE Urine Ketones NEGATIVE Urine Blood NEGATIVE Urine Nitrite NEGATIVE Ur Leukocyte Esterase NEGATIVE Urine WBC (Auto) 0 Urine RBC (Auto) 0 Urine Osmolality 03/15/19 03/15/19 03/15/19 20:02 20:02 20:02 Sodium Potassium Chloride Carbon Dioxide Anion Gap BUN Creatinine Est GFR ( Amer) Est GFR (Non-Af Amer) Glucose Serum Osmolality 239 L Uric Acid Calcium Magnesium TSH 0.89 Urine Color Urine Appearance Urine pH Ur Specific [place] Urine Protein Urine Glucose (UA) Urine Ketones Urine Blood Urine Nitrite Ur Leukocyte Esterase Urine WBC (Auto) Urine RBC (Auto) Urine Osmolality 103 L 03/15/19 03/16/19 03/16/19 22:14 00:07 02:00 Sodium 117.0 L* 117.2 L* 120.8 L* Potassium 3.3 L 3.2 L 3.7 Chloride 81 L 82 L 86 L Carbon Dioxide 26 26 27 Anion Gap 10 9 8 BUN 11 11 11 Creatinine 0.57 0.64 0.61 Est GFR ( Amer) > 60 > 60 > 60 Est GFR (Non-Af Amer) > 60 > 60 > 60 Glucose 101 103 109 Serum Osmolality Uric Acid Calcium 7.9 L 7.9 L 7.8 L Magnesium TSH Urine Color Urine Appearance Urine pH Ur Specific [place] Urine Protein Urine Glucose (UA) Urine Ketones Urine Blood Urine Nitrite Ur Leukocyte Esterase Urine WBC (Auto) Urine RBC (Auto) Urine Osmolality 03/16/19 03/16/19 05:50 12:40 Sodium 122.7 L 125.3 L Potassium 3.7 3.6 Chloride 90 L 94 L Carbon Dioxide 26 24 Anion Gap 7 7 BUN 9 8 Creatinine 0.58 0.54 Est GFR ( Amer) > 60 > 60 Est GFR (Non-Af Amer) > 60 > 60 Glucose 110 129 H Serum Osmolality Uric Acid Calcium 7.7 L 7.9 L Magnesium 2.0 TSH Urine Color Urine Appearance Urine pH Ur Specific [place] Urine Protein Urine Glucose (UA) Urine Ketones Urine Blood Urine Nitrite Ur Leukocyte Esterase Urine WBC (Auto) Urine RBC (Auto) Urine Osmolality 03/15/19 03/15/19 13:23 13:23 Creatine Kinase 62 CK-MB (CK-2) 2.61 Troponin I 0.014 Impressions: Head CT 03/15/19 13:19 IMPRESSION: Limited study. Motion artifact. No acute findings. EVIDENCE OF ACUTE STROKE: NO. Chest X-Ray 03/15/19 13:20 IMPRESSION: Borderline heart size. No pulmonary edema. Assessment and Plan - Diagnosis (1) Hyponatremia Is this a current diagnosis for this admission?: Yes Plan: Improving. Neurology was consulted and initially patient was placed on 3% NS with BMP every 2 hours, Na corrected to 122 in the morning. patient was switched to NS and was started on a Diet. Latest Na is 125.3. Likely beer protomania low oral intake. Patient drinks about 12 pack beer/day. Serum cortisol a.m. 13.6 TSH 0.89 Uric acid 4.6 Urine osmolality 103 Urine Na <5 Sodium 117-125.3, potassium 3.6, bicarb 24, creatinine 0.5 Continue NS and diet. BMP every 6. Monitor for seizures. (2) Alcohol abuse Is this a current diagnosis for this admission?: Yes Plan: No sign of withdrawals. Continue DT protocol. Supplemental thiamine and folic acid. (3) Anemia Qualifiers: Anemia type: iron deficiency Iron deficiency anemia type: inadequate dietary iron intake Qualified Code(s): D50.8 - Other iron deficiency anemias Is this a current diagnosis for this admission?: Yes Plan: We will continue his iron supplement, will transfuse if needed (4) COPD (chronic obstructive pulmonary disease) Qualifiers: COPD type: chronic bronchitis Is this a current diagnosis for this admission?: Yes Plan: Not acutely exacerbated, to Symbicort, DuoNeb's, supplemental oxygen, PRN BiPAP. (5) Diastolic CHF Qualifiers: Qualified Code(s): I50.32 - Chronic diastolic (congestive) heart failure Is this a current diagnosis for this admission?: No Plan: Not acutely exacerbated. Monitor volume status. Low-dose beta-blockers, CASSIDY, uptitrate as tolerated. Patient PCP follow-up.
[2019-03-16] MEDS ORDERED: LORAZEPAM INJ 2 MG/1 ML VIAL IV PRN (18:26)
[2019-03-16 18:35] LABS: ANION GAP 10 (5-19); BLOOD UREA NITROGEN 10 mg/dL (7-20); CALCIUM 7.9 mg/dL (8.4-10.2); CARBON DIOXIDE 22 mmol/L (22-30); CHLORIDE 94 mmol/L (98-107); GLUCOSE 133 mg/dL (75-110); POTASSIUM 3.7 mmol/L (3.6-5.0); SODIUM 126.1 mmol/L (137-145)
[2019-03-16] MEDS ORDERED: ACETAMINOPHEN 650 MG SUPP.RECT PR ONE (20:39)
[2019-03-16] MEDS: LEVALBUTEROL HCL NEB 0.63 MG/3 ML AMPUL NEB PRN (20:57)
[2019-03-16] MEDS ORDERED: CHLORPROMAZINE HCL INJ 25 MG/1 ML AMPULE ONE (20:58)
[2019-03-16] MEDS: CHLORPROMAZINE HCL INJ 25 MG/1 ML AMPULE IV PRN (21:02)
--- NOTE | 2019-03-16 21:28 | RADIOLOGY REPORT (SQ) ---
EXAM DESCRIPTION: XR CHEST 1 VIEW COMPLETED DATE/TME: 03/16/2019 00:00 CLINICAL HISTORY: 63 years Male possible aspiration COMPARISON: 03/15/2019 FINDINGS: The cardiomediastinal silhouette appears unremarkable. No pleural effusions. No pneumothorax. Subclavian catheter in place over the right chest in unchanged position. Atelectasis or infiltrate in the medial right lung base new when compared to the previous study. IMPRESSION: New density in the medial right lung base which may reflect infiltrate or atelectasis
[2019-03-16] MEDS ORDERED: CARVEDILOL 6.25 MG TABLET PO SCH (22:00)
[2019-03-16] MEDS ORDERED: METOPROLOL TARTRATE PF/INJ 5 MG/5 ML SDV IV ONE ×2 (23:33→23:59)
[2019-03-17 00:11] LABS: ANION GAP 8 (5-19); BLOOD UREA NITROGEN 9 mg/dL (7-20); CALCIUM 7.8 mg/dL (8.4-10.2); CARBON DIOXIDE 22 mmol/L (22-30); CHLORIDE 96 mmol/L (98-107); GLUCOSE 117 mg/dL (75-110); POTASSIUM 3.7 mmol/L (3.6-5.0); SODIUM 125.8 mmol/L (137-145)
[2019-03-17] MEDS: IPRATROPIUM BROMIDE 0.02% NEB 0.5 MG/2.5 ML AMPUL NEB SCH ×3 (00:18→16:36)
[2019-03-17] MEDS: LEVALBUTEROL HCL NEB 1.25 MG/3 ML AMPUL NEB SCH ×3 (00:18→16:36)
[2019-03-17 01:00] LABS: ARTERIAL BLOOD BASE EXCESS -3.5 mmol/L; ARTERIAL BLOOD FIO2 60%; ARTERIAL BLOOD H2CO3 1.33 mmol/L (1.05-1.35); ARTERIAL BLOOD HCO3 22.3 mmol/L (20-24); ARTERIAL BLOOD O2 SATURATION 81.8 % (94-98); ARTERIAL BLOOD PCO2 44.1 mmHg (35-45); ARTERIAL BLOOD PH 7.32 (7.35-7.45); ARTERIAL BLOOD PO2 49.4 mmHg (80-100); ARTERIAL BLOOD TOTAL CO2 23.7 mmol/L (23-27)
[2019-03-17] MEDS ORDERED: PROPOFOL 1,000 MG/100 ML INFUS..BTL IV ONE (01:05)
[2019-03-17] MEDS: PROPOFOL 1,000 MG/100 ML INFUS..BTL IV PRN ×4 (01:15→18:02)
[2019-03-17] MEDS: NORMAL SALINE 1000 ML 1,000 ML IV PRN ×2 (02:03→12:09)
--- NOTE | 2019-03-17 02:11 | RADIOLOGY REPORT (SQ) ---
EXAM DESCRIPTION: XR CHEST 1 VIEW COMPLETED DATE/TME: 03/17/2019 00:00 CLINICAL HISTORY: 63 years, Male, ET Tube/NG Placement COMPARISON: 03/16/2019 chest NUMBER OF VIEWS: 1 TECHNIQUE: Portable chest LIMITATIONS: None. FINDINGS: The right costophrenic angle was not included on the exam. Heart size is normal. Tip of the endotracheal tube approximately 3.7 cm above the raúl. Enteric tube with the distal tip coiled in the upper abdomen likely in the distal stomach. No pneumothorax. Central venous catheter remains in place. Atheromatous change thoracic aorta. Coarse interstitial changes bilaterally IMPRESSION: Interval placement of endotracheal and enteric tubes. Other findings stable copyright 2010 [employer]- All Rights Reserved
[2019-03-17] MEDS: DIAZEPAM INJ 10 MG/2 ML DISP.SYRIN IV PRN ×2 (02:39→04:28)
[2019-03-17] MEDS: HEPARIN SOD (PORCINE) 5,000 UNIT/ML 1 ML SYRINGE SUBCUT SCH ×3 (06:18→22:01)
--- NOTE | 2019-03-17 06:27 | Progress Note ---
Provider Note Provider Note: Critical care note: 03/17/2019 Critical care onset (face to patient in ICU): 1:20 AM Critical care problem persistent and worsening hypoxia Patient's O2 sat continues to drop despite efforts at increased O2 sats with noninvasive airway pressure support devices and supplemental oxygen. On exam chest shows a few rhonchi and very minimal bibasilar rales. Heart shows a regular rate and rhythm without murmur with a mild tachycardia. After extensive discussion with patient's ICU nurse it was agreed that the patient should be intubated and placed on mechanical ventilation to resolve the hypoxia. End of critical care time: 1:37 AM Total critical care time: 17 minutes
[2019-03-17 07:19] LABS: ANION GAP 7 (5-19); BLOOD UREA NITROGEN 9 mg/dL (7-20); CALCIUM 7.6 mg/dL (8.4-10.2); CARBON DIOXIDE 20 mmol/L (22-30); CHLORIDE 101 mmol/L (98-107); GLUCOSE 105 mg/dL (75-110); POTASSIUM 3.4 mmol/L (3.6-5.0); SODIUM 127.5 mmol/L (137-145)
[2019-03-17] MEDS ORDERED: POTASSI CL 20 MEQ/50 ML RIDER 20 MEQ/50 ML RTUPB IV ONE ×3 (08:53→21:56)
[2019-03-17] MEDS: BUDESONIDE NEB 0.5 MG/2 ML AMPUL NEB SCH ×2 (08:54→20:48)
[2019-03-17] MEDS ORDERED: CEFTRIAXONE 1 GM/D5W RTU 1 GM/50 ML RTUPB IV SCH (10:00)
[2019-03-17] MEDS: POTASSIUM CHLORIDE 10 MEQ CAPSULE.ER PO SCH ×2 (11:15→17:47)
[2019-03-17] MEDS: FOLIC ACID 1 MG TABLET NG SCH (11:16)
[2019-03-17] MEDS: LISINOPRIL 5 MG TABLET NG SCH (11:16)
[2019-03-17] MEDS: THIAMINE HCL 100 MG TABLET NG SCH (11:16)
[2019-03-17] MEDS: CARVEDILOL 6.25 MG TABLET NG SCH ×2 (11:16→22:00)
[2019-03-17] MEDS: CEFTRIAXONE SODIUM 1,000 MG in DEXTROSE 5%-WATER 50 ML IV SCH (11:25)
[2019-03-17] MEDS ORDERED: SUCCINYLCHOLINE CHLORIDE INJ 200 MG/10 ML VIAL ONE (13:27)
--- NOTE | 2019-03-17 14:07 | PDOC PROGRESS REPORT ---
Subjective Progress Note for:: 03/17/19 Subjective:: RAPHAEL BROWN is a 63 year old male who is unable to provide a satisfactory history and so most of the history is obtained from the electronic record. Apparently he was brought in by his sister because he was "not acting right." His vital signs were stable and he is able to answer some questions but his responses are very delayed. He was found to have a sodium of 112. It is not known how long his sodium is been down that low. He is not on any medications that should lower his sodium. In the bag that he had with him at his bedside, the only medications he had were ferrous sulfate, omeprazole, and hydralazine. He also had a Symbicort inhaler and an albuterol inhaler. I asked him if he drinks alcohol and he said yes. He says he drinks at least a 12 pack of beer every day, his last drink was yesterday. 03/16/2019. No acute events overnight. Awake and alert after does not provide much history except that he is feeling fine. Has any fever, chills, nausea, vomiting constipation or any urinary symptoms. SBP 007867, T-max 99.1, pulse 90s, RR 15, SPO2 97% on 2 L FiO2 21%. Sodium 125.3, potassium 3.6, bicarb 24, creatinine 0.5T his is most likely secondary to intake of hypotonic fluids including the beer more than electrolyte containing fluids. We will check for other causes. We will check the patient's urine sodium, urine osmolality, plasma osmolality, TSH, cortisol and uric acid. 03/17/2019. Overnight patient went into hypoxic respiratory distress and was intubated. SBP 33101, T-max 101.8, pulse 23881, RR 1636, SPO2 100%, FiO2 30% MV. Sodium 127.7 potassium 3.4, bicarb 20, creatinine 0.5 Reason For Visit: SEVERE HYPONATREMIA Physical Exam Vital Signs: Temp Pulse Resp BP Pulse Ox 96.6 F L 66 24 H 110/60 100 03/17/19 12:00 03/17/19 12:00 03/17/19 12:00 03/17/19 12:00 03/17/19 12:24 Intake & Output 03/16/19 03/17/19 03/18/19 06:59 06:59 06:59 Intake Total 2602 2064 895 Output Total 860 1185 85 Balance 1742 879 810 Weight 49.3 kg 54.5 kg General appearance: PRESENT: no acute distress, other - Intubated Head exam: PRESENT: atraumatic, normocephalic Respiratory exam: PRESENT: clear to auscultation pierre. ABSENT: rales, rhonchi, wheezes Cardiovascular exam: PRESENT: RRR. ABSENT: diastolic murmur, rubs, systolic murmur GI/Abdominal exam: PRESENT: normal bowel sounds, soft. ABSENT: distended, guarding, mass, organolmegaly, rebound, tenderness Extremities exam: PRESENT: full ROM. ABSENT: calf tenderness, clubbing, pedal edema Neurological exam: PRESENT: other - Sedated and intubated. Results Laboratory Results: 03/15/19 13:23 03/17/19 06:50 03/16/19 03/16/19 03/17/19 17:44 23:45 00:56 Carbonic Acid 1.33 HCO3/H2CO3 Ratio 16:1 ABG pH 7.32 L ABG pCO2 44.1 ABG pO2 49.4 L ABG HCO3 22.3 ABG O2 Saturation 81.8 L ABG Base Excess -3.5 FiO2 60% Sodium 126.1 L 125.8 L Potassium 3.7 3.7 Chloride 94 L 96 L Carbon Dioxide 22 22 Anion Gap 10 8 BUN 10 9 Creatinine 0.59 0.62 Est GFR ( Amer) > 60 > 60 Est GFR (Non-Af Amer) > 60 > 60 Glucose 133 H 117 H Calcium 7.9 L 7.8 L 03/17/19 06:50 Carbonic Acid HCO3/H2CO3 Ratio ABG pH ABG pCO2 ABG pO2 ABG HCO3 ABG O2 Saturation ABG Base Excess FiO2 Sodium 127.5 L Potassium 3.4 L Chloride 101 Carbon Dioxide 20 L Anion Gap 7 BUN 9 Creatinine 0.56 Est GFR ( Amer) > 60 Est GFR (Non-Af Amer) > 60 Glucose 105 Calcium 7.6 L 03/15/19 03/15/19 13:23 13:23 Creatine Kinase 62 CK-MB (CK-2) 2.61 Troponin I 0.014 Impressions: Head CT 03/15/19 13:19 IMPRESSION: Limited study. Motion artifact. No acute findings. EVIDENCE OF ACUTE STROKE: NO. Chest X-Ray 03/17/19 00:00 IMPRESSION: Interval placement of endotracheal and enteric tubes. Other findings stable copyright 2010 [employer] All Rights Reserved Assessment and Plan - Diagnosis (1) Acute hypoxemic respiratory failure Is this a current diagnosis for this admission?: Yes Plan: Due to aspiration pneumonia versus pneumonitis complicated by EtOH withdrawal. Intubation day #1 (patient was reported to have choked on his dinner yesterday followed by coughing and vomiting.) 03/17/2019: SBP 05330, T-max 101.8, pulse 23259, RR 1636, SPO2 100%, FiO2 30% MV. ABG pH 7.32, PCO2 44.1, PO2 49.45 to 60% Continue ventilator support, empiric IV antibiotics, sputum culture, blood culture, pulmonary toileting. Ceftriaxone day #1. (2) Alcohol withdrawal Qualifiers: Complication of substance-induced condition: with unspecified complication Qualified Code(s): F10.239 - Alcohol dependence with withdrawal, unspecified Is this a current diagnosis for this admission?: Yes Plan: Patient was noted to be hypoxic, tachypneic, respiratory distress prior to being intubated may have been due to acute respiratory failure coupled with EtOH withdrawal. Continue Ativan as needed, folic acid, thiamine, D5 NS, for seizures. Currently mechanically ventilated. (3) COPD (chronic obstructive pulmonary disease) Qualifiers: COPD type: chronic bronchitis Is this a current diagnosis for this admission?: Yes Plan: Continue Symbicort, DuoNeb's, IV steroids. Currently intubated due to respiratory distress most likely caused by aspiration pneumonia VS pneumonitis. (4) Hyponatremia Is this a current diagnosis for this admission?: Yes Plan: Improving. Nephrology was consulted and initially patient was placed on 3% NS with BMP every 2 hours, Na corrected to 122 in the morning. patient was switched to NS and was started on a Diet. Latest Na is 125.3. Likely beer protomania low oral intake. Patient drinks about 12 pack beer/day. Serum cortisol a.m. 13.6 TSH 0.89 Uric acid 4.6 Urine osmolality 103 Urine Na <5 03/17/2019: Sodium 127.7 potassium 3.4, bicarb 20, creatinine 0.5 03/17/2019: Sodium 117-125.3, potassium 3.6, bicarb 24, creatinine 0.5 Continue NS and diet. BMP every 6. Monitor for seizures. (5) Alcohol abuse Is this a current diagnosis for this admission?: Yes Plan: As above (6) Anemia Qualifiers: Anemia type: iron deficiency Iron deficiency anemia type: inadequate dietary iron intake Qualified Code(s): D50.8 - Other iron deficiency anemias Is this a current diagnosis for this admission?: Yes Plan: We will continue his iron supplement, will transfuse if needed (7) Diastolic CHF Is this a current diagnosis for this admission?: No Plan: Not acutely exacerbated. Monitor volume status. Low-dose beta-blockers, CASSIDY, uptitrate as tolerated. Patient PCP follow-up.
[2019-03-17 15:03] LABS: HEMATOCRIT 16.1 % (37.9-51.0); MEAN CORPUSCULAR HEMOGLOBIN 29.6 pg (27.0-33.4); MEAN CORPUSCULAR HGB CONC 33.3 g/dL (32.0-36.0); MEAN CORPUSCULAR VOLUME 89 fl (80-97); PLATELET COUNT 305 10^3/uL (150-450); RED CELL DISTRIBUTION WIDTH 14.8 % (11.5-14.0); WHITE BLOOD COUNT 15.6 10^3/uL (4.0-10.5)
[2019-03-17 15:08] LABS: HEMOGLOBIN 5.3 g/dL (13.5-17.0)
[2019-03-17 15:10] LABS: ANION GAP 9 (5-19); BLOOD UREA NITROGEN 10 mg/dL (7-20); CALCIUM 7.7 mg/dL (8.4-10.2); CARBON DIOXIDE 19 mmol/L (22-30); CHLORIDE 102 mmol/L (98-107); GLUCOSE 108 mg/dL (75-110); POTASSIUM 3.4 mmol/L (3.6-5.0); SODIUM 129.6 mmol/L (137-145)
[2019-03-17 15:36] LABS: ABSOLUTE LYMPHOCYTES# (MANUAL) 0.8 10^3/uL (0.5-4.7); ABSOLUTE MONOCYTES # (MANUAL) 0.2 10^3/uL (0.1-1.4); ABSOLUTE NEUTROPHILS# (MANUAL) 14.7 10^3/uL (1.7-8.2); ANISOCYTOSIS SLIGHT; BAND NEUTROPHILS % (MANUAL) 7 % (3-5); BASOPHILS % (MANUAL) 0 % (0-2); EOSINOPHILS % (MANUAL) 0 % (0-6); LYMPHOCYTES % (MANUAL) 5 % (13-45); MONOCYTES % (MANUAL) 1 % (3-13); OVALOCYTES SLIGHT; PLATELET COMMENT ADEQUATE; POLYCHROMASIA SLIGHT; SEGMENTED NEUTROPHILS % (MAN) 87 % (42-78); TOTAL CELLS COUNTED 100; TOXIC GRANULATION SLIGHT
[2019-03-17] MEDS ORDERED: MAGNESIUM SULFATE/D5W 1 GM/100 ML RTUPB IV ONE (15:50)
[2019-03-17 16:01] LABS: HEMATOCRIT 16.5 % (37.9-51.0); MEAN CORPUSCULAR HEMOGLOBIN 29.4 pg (27.0-33.4); MEAN CORPUSCULAR HGB CONC 32.7 g/dL (32.0-36.0); MEAN CORPUSCULAR VOLUME 90 fl (80-97); PLATELET COUNT 298 10^3/uL (150-450); RED BLOOD COUNT 1.84 10^6/uL (4.35-5.55); RED CELL DISTRIBUTION WIDTH 14.7 % (11.5-14.0); WHITE BLOOD COUNT 15.3 10^3/uL (4.0-10.5)
[2019-03-17 16:03] LABS: HEMOGLOBIN 5.4 g/dL (13.5-17.0)
[2019-03-17] MEDS ORDERED: NORMAL SALINE 250 ML IV PRN (17:25)
[2019-03-17] MEDS: MAGNESIUM OXIDE 400 MG TABLET PO SCH (17:47)
[2019-03-17] MEDS: NORMAL SALINE 250 ML IV PRN (20:40)
[2019-03-17] MEDS: LEVALBUTEROL HCL NEB 0.63 MG/3 ML AMPUL NEB PRN (20:48)
[2019-03-17] MEDS: DEXTROSE 5%-NORMAL SALINE 1,000 ML IV PRN (22:11)
[2019-03-18] MEDS: PROPOFOL 1,000 MG/100 ML INFUS..BTL IV PRN ×4 (00:02→19:20)
[2019-03-18] MEDS: NORMAL SALINE 250 ML IV PRN (00:03)
[2019-03-18] MEDS: IPRATROPIUM BROMIDE 0.02% NEB 0.5 MG/2.5 ML AMPUL NEB SCH ×3 (00:33→17:09)
[2019-03-18] MEDS: LEVALBUTEROL HCL NEB 1.25 MG/3 ML AMPUL NEB SCH ×3 (00:33→17:09)
[2019-03-18] MEDS ORDERED: ALTEPLASE INJ 2 MG VIAL (CATH CLEARANCE) IV PRN (02:10)
[2019-03-18] MEDS ORDERED: ALTEPLASE INJ 2 MG VIAL (CATH CLEARANCE) IV ONE (02:20)
[2019-03-18 04:13] LABS: ARTERIAL BLOOD BASE EXCESS -4.9 mmol/L; ARTERIAL BLOOD H2CO3 0.93 mmol/L (1.05-1.35); ARTERIAL BLOOD HCO3 19.3 mmol/L (20-24); ARTERIAL BLOOD O2 SATURATION 97.1 % (94-98); ARTERIAL BLOOD PH 7.41 (7.35-7.45); ARTERIAL BLOOD PO2 90.6 mmHg (80-100); ARTERIAL BLOOD TOTAL CO2 20.2 mmol/L (23-27)
[2019-03-18 04:15] LABS: ABSOLUTE BASOPHILS # (AUTO) 0.1 10^3/uL (0.0-0.2); ABSOLUTE EOSINOPHILS # (AUTO) 0.1 10^3/uL (0.0-0.6); ABSOLUTE LYMPHOCYTES (AUTO) 0.9 10^3/uL (0.5-4.7); ABSOLUTE MONOCYTES (AUTO) 0.6 10^3/uL (0.1-1.4); ABSOLUTE NEUT (AUTO) 10.4 10^3/uL (1.7-8.2); BASOPHILS % (AUTO) 0.4 % (0-2); EOSINOPHILS % (AUTO) 0.5 % (0-6); HEMATOCRIT 22.9 % (37.9-51.0); LYMPHOCYTES % (AUTO) 7.5 % (13-45); MEAN CORPUSCULAR HEMOGLOBIN 29.9 pg (27.0-33.4); MEAN CORPUSCULAR HGB CONC 33.2 g/dL (32.0-36.0); MEAN CORPUSCULAR VOLUME 90 fl (80-97); MONOCYTES % (AUTO) 5.2 % (3-13); PLATELET COUNT 250 10^3/uL (150-450); RED BLOOD COUNT 2.55 10^6/uL (4.35-5.55); RED CELL DISTRIBUTION WIDTH 14.8 % (11.5-14.0); SEGMENTED NEUTROPHILS % (AUTO) 86.4 % (42-78); TOTAL CELLS COUNTED % (AUTO) 100 %
[2019-03-18 04:19] LABS: ARTERIAL BLOOD FIO2 21%
[2019-03-18 04:24] LABS: HEMOGLOBIN 7.6 g/dL (13.5-17.0)
[2019-03-18 04:33] LABS: ALANINE AMINOTRANSFERASE 29 U/L (21-72); ALBUMIN 1.9 g/dL (3.5-5.0); ALKALINE PHOSPHATASE 67 U/L (38-126); ANION GAP 7 (5-19); ASPARTATE AMINO TRANSFERASE 20 U/L (17-59); BILIRUBIN,DIRECT 0.3 mg/dL (0.0-0.4); BILIRUBIN,TOTAL 0.3 mg/dL (0.2-1.3); BLOOD UREA NITROGEN 9 mg/dL (7-20); CALCIUM 7.8 mg/dL (8.4-10.2); CARBON DIOXIDE 18 mmol/L (22-30); CHLORIDE 105 mmol/L (98-107); GLUCOSE 115 mg/dL (75-110); POTASSIUM 3.7 mmol/L (3.6-5.0); SODIUM 130.2 mmol/L (137-145); TOTAL PROTEIN 4.3 g/dL (6.3-8.2)
[2019-03-18] MEDS: DEXTROSE 5%-NORMAL SALINE 1,000 ML IV PRN (05:02)
[2019-03-18] MEDS: HEPARIN SOD (PORCINE) 5,000 UNIT/ML 1 ML SYRINGE SUBCUT SCH ×3 (05:02→21:56)
[2019-03-18] MEDS: POTASSIUM CHLORIDE 10 MEQ CAPSULE.ER PO SCH ×2 (05:05→10:31)
[2019-03-18] MEDS ORDERED: DEXTROSE 5%-NORMAL SALINE 1,000 ML IV PRN (08:38)
[2019-03-18] MEDS: BUDESONIDE NEB 0.5 MG/2 ML AMPUL NEB SCH ×2 (08:56→21:09)
[2019-03-18 09:06] LABS: ABSOLUTE RETICS # 0.098 10^6/uL (0.028-0.122); RETICULOCYTE COUNT (AUTO) 3.77 % (0.66-2.85)
[2019-03-18 09:18] LABS: IRON(TIBC) 12.5 ug/dL (49-181)
--- NOTE | 2019-03-18 09:31 | RADIOLOGY REPORT (SQ) ---
EXAM DESCRIPTION: CHEST SINGLE VIEW COMPLETED DATE/TIME: 03/18/2019 6:31 am REASON FOR STUDY: Intubated COMPARISON: 03/17/2019 NUMBER OF VIEWS: One view. TECHNIQUE: Single frontal radiographic image of the chest acquired. LIMITATIONS: None. FINDINGS: LUNGS AND PLEURA: Small pleural effusions. Bilateral airspace disease with increasing opa cities in both lung bases. No pneumothorax. MEDIASTINUM AND HEART: Stable heart size and mediastinal structures. SUPPORT DEVICES: Appropriate location without change. BONY STRUCTURES: No acute findings. HARDWARE: None. OTHER: No other significant finding. IMPRESSION: Rehydration versus progressing pneumonia. No pneumothorax. Reading location - IP/workstation name: [email or web address]
[2019-03-18 10:25] LABS: FOLATE 8.37 ng/mL (>2.76)
[2019-03-18] MEDS: MAGNESIUM OXIDE 400 MG TABLET PO SCH ×2 (10:29→17:48)
[2019-03-18] MEDS: LISINOPRIL 5 MG TABLET NG SCH (10:29)
[2019-03-18] MEDS: FOLIC ACID 1 MG TABLET NG SCH (10:29)
[2019-03-18] MEDS: THIAMINE HCL 100 MG TABLET NG SCH (10:30)
[2019-03-18] MEDS: CARVEDILOL 6.25 MG TABLET NG SCH (10:30)
[2019-03-18] MEDS: CEFTRIAXONE SODIUM 1,000 MG in DEXTROSE 5%-WATER 50 ML IV SCH (10:30)
--- NOTE | 2019-03-18 10:41 | PDOC PROGRESS REPORT ---
Subjective Progress Note for:: 03/18/19 Subjective:: RAPHAEL BROWN is a 63 year old male who is unable to provide a satisfactory history and so most of the history is obtained from the electronic record. Apparently he was brought in by his sister because he was "not acting right." His vital signs were stable and he is able to answer some questions but his responses are very delayed. He was found to have a sodium of 112. It is not known how long his sodium is been down that low. He is not on any medications that should lower his sodium. In the bag that he had with him at his bedside, the only medications he had were ferrous sulfate, omeprazole, and hydralazine. He also had a Symbicort inhaler and an albuterol inhaler. I asked him if he drinks alcohol and he said yes. He says he drinks at least a 12 pack of beer every day, his last drink was yesterday. 03/16/2019. No acute events overnight. Awake and alert after does not provide much history except that he is feeling fine. Has any fever, chills, nausea, vomiting constipation or any urinary symptoms. SBP 461510, T-max 99.1, pulse 90s, RR 15, SPO2 97% on 2 L FiO2 21%. Sodium 125.3, potassium 3.6, bicarb 24, creatinine 0.5T his is most likely secondary to intake of hypotonic fluids including the beer more than electrolyte containing fluids. We will check for other causes. We will check the patient's urine sodium, urine osmolality, plasma osmolality, TSH, cortisol and uric acid. 03/17/2019. Overnight patient went into hypoxic respiratory distress and was intubated. SBP 62950, T-max 101.8, pulse 34984, RR 1636, SPO2 100%, FiO2 30% MV. Sodium 127.7 potassium 3.4, bicarb 20, creatinine 0.5 03/18/2019. No acute events overnight. His hypoxemia has improved as well as his sodium level. Cultures has been negative so far. Possible extubation tomorrow. tolerated weaning. SBP 19045, T-max 96.8, HR 60s, RR 1619 MV: SPO2 100% FiO2 25% MV. SIMV, RR 16, VT 400, MV 6.4, PEEP 5. ABG pH 7.41, PCO2 31.0, PO2 90.6, FiO2 21%. WBC 12.0, hemoglobin 7.6, sodium 130.2, potassium 3.7, bicarb 18, creatinine 0.64. Reason For Visit: SEVERE HYPONATREMIA Physical Exam Vital Signs: Temp Pulse Resp BP Pulse Ox 97.0 F 64 19 111/65 100 03/18/19 08:00 03/18/19 08:56 03/18/19 10:00 03/18/19 09:50 03/18/19 10:00 Intake & Output 03/17/19 03/18/19 03/19/19 06:59 06:59 06:59 Intake Total 2064 4228 Output Total 1185 555 15 Balance 879 3673 -15 Weight 54.5 kg 56.5 kg General appearance: PRESENT: no acute distress Head exam: PRESENT: atraumatic, normocephalic Respiratory exam: PRESENT: clear to auscultation pierre. ABSENT: rales, rhonchi, wheezes Pulses: PRESENT: normal dorsalis pedis pul GI/Abdominal exam: PRESENT: normal bowel sounds, soft. ABSENT: distended, guarding, mass, organolmegaly, rebound, tenderness Extremities exam: PRESENT: full ROM. ABSENT: calf tenderness, clubbing, pedal edema Neurological exam: PRESENT: other - sedated, intubated. Results Laboratory Results: 03/18/19 03:52 03/18/19 03:52 03/17/19 03/17/19 03/17/19 14:35 14:35 15:45 WBC 15.6 H 15.3 H RBC 1.80 L 1.84 L Hgb 5.3 L D 5.4 L Hct 16.1 L 16.5 L MCV 89 90 MCH 29.6 29.4 MCHC 33.3 32.7 RDW 14.8 H 14.7 H Plt Count 305 298 Seg Neutrophils % Not Reportable Lymphocytes % Not Reportable Monocytes % Not Reportable Eosinophils % Not Reportable Basophils % Not Reportable Absolute Neutrophils Not Reportable Absolute Lymphocytes Not Reportable Absolute Monocytes Not Reportable Absolute Eosinophils Not Reportable Absolute Basophils Not Reportable Retic Count (auto) Absolute Retic Carbonic Acid HCO3/H2CO3 Ratio ABG pH ABG pCO2 ABG pO2 ABG HCO3 ABG O2 Saturation ABG Base Excess FiO2 Sodium 129.6 L Potassium 3.4 L Chloride 102 Carbon Dioxide 19 L Anion Gap 9 BUN 10 Creatinine 0.57 Est GFR ( Amer) > 60 Est GFR (Non-Af Amer) > 60 Glucose 108 Calcium 7.7 L Magnesium 1.4 L Total Bilirubin AST ALT Alkaline Phosphatase Total Protein Albumin Blood Type Antibody Screen 03/17/19 03/18/19 03/18/19 17:55 03:52 03:52 WBC RBC Hgb Hct MCV MCH MCHC RDW Plt Count Seg Neutrophils % Lymphocytes % Monocytes % Eosinophils % Basophils % Absolute Neutrophils Absolute Lymphocytes Absolute Monocytes Absolute Eosinophils Absolute Basophils Retic Count (auto) Absolute Retic Carbonic Acid 0.93 L HCO3/H2CO3 Ratio 20:1 ABG pH 7.41 ABG pCO2 31.0 L ABG pO2 90.6 ABG HCO3 19.3 L ABG O2 Saturation 97.1 ABG Base Excess -4.9 FiO2 21% Sodium 130.2 L Potassium 3.7 Chloride 105 Carbon Dioxide 18 L Anion Gap 7 BUN 9 Creatinine 0.64 Est GFR ( Amer) > 60 Est GFR (Non-Af Amer) > 60 Glucose 115 H Calcium 7.8 L Magnesium 1.8 Total Bilirubin 0.3 AST 20 ALT 29 Alkaline Phosphatase 67 Total Protein 4.3 L Albumin 1.9 L Blood Type O POSITIVE Antibody Screen NEGATIVE 03/18/19 03/18/19 03:52 03:52 WBC 12.0 H RBC 2.55 L Hgb 7.6 L D Hct 22.9 L MCV 90 MCH 29.9 MCHC 33.2 RDW 14.8 H Plt Count 250 Seg Neutrophils % 86.4 H Lymphocytes % 7.5 L Monocytes % 5.2 Eosinophils % 0.5 Basophils % 0.4 Absolute Neutrophils 10.4 H Absolute Lymphocytes 0.9 Absolute Monocytes 0.6 Absolute Eosinophils 0.1 Absolute Basophils 0.1 Retic Count (auto) 3.77 H Absolute Retic 0.098 Carbonic Acid HCO3/H2CO3 Ratio ABG pH ABG pCO2 ABG pO2 ABG HCO3 ABG O2 Saturation ABG Base Excess FiO2 Sodium Potassium Chloride Carbon Dioxide Anion Gap BUN Creatinine Est GFR ( Amer) Est GFR (Non-Af Amer) Glucose Calcium Magnesium Total Bilirubin AST ALT Alkaline Phosphatase Total Protein Albumin Blood Type Antibody Screen 03/15/19 03/15/19 13:23 13:23 Creatine Kinase 62 CK-MB (CK-2) 2.61 Troponin I 0.014 Impressions: Head CT 03/15/19 13:19 IMPRESSION: Limited study. Motion artifact. No acute findings. EVIDENCE OF ACUTE STROKE: NO. Chest X-Ray 03/18/19 06:00 IMPRESSION: Rehydration versus progressing pneumonia. No pneumothorax. Assessment and Plan - Diagnosis (1) Acute hypoxemic respiratory failure Is this a current diagnosis for this admission?: Yes Plan: Moderate improvement. Due to aspiration pneumonia versus pneumonitis complicated by EtOH withdrawal. Intubation day #2 (patient was reported to have choked on his dinner yesterday followed by coughing and vomiting.) 03/18/2019: SBP 39910, T-max 96.8, HR 60s, RR 1619 MV: SPO2 100% FiO2 21% MV. SIMV, RR 16, VT 400, MV 6.4, PEEP 5. ABG pH 7.41, PCO2 31.0, PO2 90.6, FiO2 21%. 03/17/2019: SBP 16517, T-max 101.8, pulse 47865, RR 1636, SPO2 100%, FiO2 30% MV. ABG pH 7.32, PCO2 44.1, PO2 49.45 FiO2 60% Continue ventilator support, empiric IV antibiotics, sputum culture, blood culture, pulmonary toileting. Ceftriaxone day #2. (2) Alcohol withdrawal Qualifiers: Complication of substance-induced condition: with unspecified complication Qualified Code(s): F10.239 - Alcohol dependence with withdrawal, unspecified Is this a current diagnosis for this admission?: Yes Plan: Patient was noted to be hypoxic, tachypneic, respiratory distress prior to being intubated may have been due to acute respiratory failure coupled with EtOH withdrawal. Continue Ativan as needed, folic acid, thiamine, D5 NS, for seizures. Currently mechanically ventilated. (3) COPD (chronic obstructive pulmonary disease) Qualifiers: COPD type: chronic bronchitis Is this a current diagnosis for this admission?: Yes Plan: Continue Symbicort, DuoNeb's, IV steroids. Currently intubated due to respiratory distress most likely caused by aspiration pneumonia VS pneumonitis. (4) Hyponatremia Is this a current diagnosis for this admission?: Yes Plan: Improving. Nephrology was consulted and initially patient was placed on 3% NS with BMP every 2 hours, Na corrected to 122 in the morning. patient was switched to NS and was started on a Diet. Latest Na is 125.3. Likely beer protomania low oral intake. Patient drinks about 12 pack beer/day. Serum cortisol a.m. 13.6 TSH 0.89 Uric acid 4.6 Urine osmolality 103 Urine Na <5 03/18/2019: Sodium 130.2, potassium 3.7, bicarb 18, creatinine 0.64. 03/17/2019: Sodium 127.7 potassium 3.4, bicarb 20, creatinine 0.5 03/16/2019: Sodium 117-125.3, potassium 3.6, bicarb 24, creatinine 0.5 Since patient is intubated due to respiratory distress caused by aspiration pneumonia, feeds have not been started, will hold IV fluids and recheck sodium in the evening and see if he has self corrected. Will reevaluate and start on appropriate IV fluids. Monitor for seizures. (5) Alcohol abuse Is this a current diagnosis for this admission?: Yes Plan: As above (6) Anemia Qualifiers: Anemia type: iron deficiency Iron deficiency anemia type: inadequate dietary iron intake Qualified Code(s): D50.8 - Other iron deficiency anemias Is this a current diagnosis for this admission?: Yes Plan: Normocytic. Chronic. Baseline hemoglobin 10-11 g/dL Chronic anemia could be multifactorial. Patient has chronic alcoholic, but H. pylori and stool occult been negative in the past. On admission hemoglobin 7.8. Dropped to 5.3 after intubation. S/P 2 PRBC transfusion. Today hemoglobin 7.6. 12/18/2016 stool occult blood negative. We will get a new stool occult, iron, folic acid and vitamin B12 levels. Daily H&H, transfuse if less than 7 or actively bleeding or symptomatic. Continue B12 and folic acid supplements, once iron level is back I will either start on p.o. ferrous sulfate or iron infusion. (7) Diastolic CHF Is this a current diagnosis for this admission?: No Plan: Not acutely exacerbated. Monitor volume status. Low-dose beta-blockers, CASSIDY, uptitrate as tolerated. Patient PCP follow-up. (8) Hypoalbuminemia due to protein-calorie malnutrition Is this a current diagnosis for this admission?: Yes Plan: Could be due to chronic malnutrition due to patient having history of alcohol abuse. Consult cable coverer.
[2019-03-18] MEDS: POTASSIUM CHLORIDE 20 MEQ PACKET NG SCH ×2 (12:20→17:48)
--- NOTE | 2019-03-18 13:16 | PDOC CONSULTATION ---
Consultation Consult Date: 03/18/19 Attending physician:: CARMEN SCOTT Provider Consulted: TENNILLE TEJADA Consult reason:: resp failure pna History of Present Illness Admission Date/PCP: 03/15/19 15:52 History of Present Illness: RAPHAEL BROWN is a 63 year old male, brought to the emergency room by his family for altered mental status and to be hyponatremic with sodium 112 became less less responsive and he subsequently ended intubated not been on any medication t that would explain his hyponatremia. Long history of alcohol abuse drinks 12 pack of beer per day family anemic hemoglobin 5.4 Past Medical History Cardiac Medical History: Reports: Congestive Heart Failure, Hypertension Pulmonary Medical History: Reports: Chronic Obstructive Pulmonary Disease (COPD), Intubation, Pneumonia, Respiratory Failure GI Medical History: Denies: Crohn's Disease, Ulcerative Colitis Musculoskeltal Medical History: Denies: Fibromyalgia, Gout Psychiatric Medical History: Reports: Alcohol Dependency, Depression, Tobacco Dependency Traumatic Medical History: Denies: Stab Wound Hematology: Denies: Sickle Cell Disease Infectious Medical History: Denies: Methicillin-Resistant Staph Aureus Past Surgical History Past Surgical History: Reports: Other - Bilateral mastoid surgery Perforated duodenal ulcer with repair Social History Information Source: Relative, [facility] Records 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 Lives with: Spouse/Significant other Smoking Status: Current Every Day Smoker Cigarettes Packs Per Day: 1 Number of Years Smokin Passive smoke exposure as: Both Frequency of Alcohol Use: Heavy Hx Recreational Drug Use: Yes Drugs: Marijuana Hx Prescription Drug Abuse: No Do you have pets?: No Have you had any respiratory illnesses as a child?: No Have you been exposed to any sick contacts recently?: No Have you had any recent respiratory illnesses?: No Have you travelled outside of [place] in the past 12 months?: No - Advance Directive Resuscitation Status: Full Code Family History Family History: CAD Parental Family History Reviewed: No Children Family History Reviewed: No Sibling(s) Family History Reviewed.: No Medication/Allergy Home Medications: Hydralazine HCl [Apresoline 25 mg Tablet] 25 mg PO Q8 03/15/19 Omeprazole 40 mg PO DAILY 03/15/19 Allergies/Adverse Reactions: No Known Allergies Allergy (Verified 09/29/17 19:13) Review of Systems ROS unobtainable: Due to endotracheal tube, Due to mental status Physical Exam Vital Signs: Temp Pulse Resp BP Pulse Ox 97.0 F 64 19 111/65 100 03/18/19 08:00 03/18/19 08:56 03/18/19 10:00 03/18/19 09:50 03/18/19 10:00 Intake & Output 03/17/19 03/18/19 03/19/19 06:59 06:59 06:59 Intake Total 2064 4228 Output Total 1185 555 15 Balance 879 3673 -15 Weight 54.5 kg 56.5 kg General appearance: PRESENT: no acute distress, disheveled, thin. ABSENT: cooperative Head exam: PRESENT: atraumatic, normocephalic Eye exam: PRESENT: conjunctiva pale. ABSENT: EOMI, nystagmus, periorbital swelling Mouth exam: PRESENT: dry mucosa, neck supple, tongue midline, other - Endotracheal tube Neck exam: ABSENT: carotid bruit, full ROM, JVD, lymphadenopathy, meningismus, tenderness, thyromegaly, tracheal deviation, tracheostomy, other Respiratory exam: PRESENT: decreased breath sounds, prolonged expiratory phas, rales, rhonchi, symmetrical, unlabored. ABSENT: retraction, stridor, tachypnea Cardiovascular exam: PRESENT: RRR, +S1, +S2 Pulses: PRESENT: normal radial pulses GI/Abdominal exam: PRESENT: soft. ABSENT: mass Gentrourinary exam: PRESENT: indwelling catheter Extremities exam: ABSENT: calf tenderness, clubbing, joint swelling Musculoskeletal exam: ABSENT: ambulatory, deformity, dislocation Neurological exam: ABSENT: awake Skin exam: PRESENT: dry, warm Results Laboratory Results: 03/18/19 03:52 03/18/19 03:52 03/17/19 03/17/19 03/17/19 14:35 14:35 15:45 WBC 15.6 H 15.3 H RBC 1.80 L 1.84 L Hgb 5.3 L D 5.4 L Hct 16.1 L 16.5 L MCV 89 90 MCH 29.6 29.4 MCHC 33.3 32.7 RDW 14.8 H 14.7 H Plt Count 305 298 Seg Neutrophils % Not Reportable Lymphocytes % Not Reportable Monocytes % Not Reportable Eosinophils % Not Reportable Basophils % Not Reportable Absolute Neutrophils Not Reportable Absolute Lymphocytes Not Reportable Absolute Monocytes Not Reportable Absolute Eosinophils Not Reportable Absolute Basophils Not Reportable Retic Count (auto) Absolute Retic Carbonic Acid HCO3/H2CO3 Ratio ABG pH ABG pCO2 ABG pO2 ABG HCO3 ABG O2 Saturation ABG Base Excess FiO2 Sodium 129.6 L Potassium 3.4 L Chloride 102 Carbon Dioxide 19 L Anion Gap 9 BUN 10 Creatinine 0.57 Est GFR ( Amer) > 60 Est GFR (Non-Af Amer) > 60 Glucose 108 Calcium 7.7 L Magnesium 1.4 L Total Bilirubin AST ALT Alkaline Phosphatase Total Protein Albumin Blood Type Antibody Screen 03/17/19 03/18/19 03/18/19 17:55 03:52 03:52 WBC RBC Hgb Hct MCV MCH MCHC RDW Plt Count Seg Neutrophils % Lymphocytes % Monocytes % Eosinophils % Basophils % Absolute Neutrophils Absolute Lymphocytes Absolute Monocytes Absolute Eosinophils Absolute Basophils Retic Count (auto) Absolute Retic Carbonic Acid 0.93 L HCO3/H2CO3 Ratio 20:1 ABG pH 7.41 ABG pCO2 31.0 L ABG pO2 90.6 ABG HCO3 19.3 L ABG O2 Saturation 97.1 ABG Base Excess -4.9 FiO2 21% Sodium 130.2 L Potassium 3.7 Chloride 105 Carbon Dioxide 18 L Anion Gap 7 BUN 9 Creatinine 0.64 Est GFR ( Amer) > 60 Est GFR (Non-Af Amer) > 60 Glucose 115 H Calcium 7.8 L Magnesium 1.8 Total Bilirubin 0.3 AST 20 ALT 29 Alkaline Phosphatase 67 Total Protein 4.3 L Albumin 1.9 L Blood Type O POSITIVE Antibody Screen NEGATIVE 03/18/19 03/18/19 03:52 03:52 WBC 12.0 H RBC 2.55 L Hgb 7.6 L D Hct 22.9 L MCV 90 MCH 29.9 MCHC 33.2 RDW 14.8 H Plt Count 250 Seg Neutrophils % 86.4 H Lymphocytes % 7.5 L Monocytes % 5.2 Eosinophils % 0.5 Basophils % 0.4 Absolute Neutrophils 10.4 H Absolute Lymphocytes 0.9 Absolute Monocytes 0.6 Absolute Eosinophils 0.1 Absolute Basophils 0.1 Retic Count (auto) 3.77 H Absolute Retic 0.098 Carbonic Acid HCO3/H2CO3 Ratio ABG pH ABG pCO2 ABG pO2 ABG HCO3 ABG O2 Saturation ABG Base Excess FiO2 Sodium Potassium Chloride Carbon Dioxide Anion Gap BUN Creatinine Est GFR ( Amer) Est GFR (Non-Af Amer) Glucose Calcium Magnesium Total Bilirubin AST ALT Alkaline Phosphatase Total Protein Albumin Blood Type Antibody Screen 03/15/19 03/15/19 13:23 13:23 Creatine Kinase 62 CK-MB (CK-2) 2.61 Troponin I 0.014 Impressions: Head CT 03/15/19 13:19 IMPRESSION: Limited study. Motion artifact. No acute findings. EVIDENCE OF ACUTE STROKE: NO. Chest X-Ray 03/18/19 06:00 IMPRESSION: Rehydration versus progressing pneumonia. No pneumothorax. Assessment & Plan - Diagnosis (1) Acute hypoxemic respiratory failure Is this a current diagnosis for this admission?: Yes Plan: Improved currently FiO2 is 21% (2) Alcohol withdrawal Qualifiers: Complication of substance-induced condition: with unspecified complication Qualified Code(s): F10.239 - Alcohol dependence with withdrawal, unspecified Is this a current diagnosis for this admission?: Yes Plan: 40 hrs. since last EtOH consumption (3) Abuse of smoked substance Is this a current diagnosis for this admission?: Yes Plan: Transdermal nicotine (4) Anemia Qualifiers: Anemia type: iron deficiency Iron deficiency anemia type: inadequate dietary iron intake Qualified Code(s): D50.8 - Other iron deficiency anemias Is this a current diagnosis for this admission?: Yes Plan: Significant, work-up for iron deficiency etc. in progress (5) COPD (chronic obstructive pulmonary disease) Qualifiers: COPD type: chronic bronchitis Is this a current diagnosis for this admission?: Yes Plan: Long-acting beta agonist plus long-acting muscarinic agent (6) DTs (delirium tremens) Is this a current diagnosis for this admission?: Yes Plan: To be expected based on his history - Time Total Critical Time (Minutes): 55
[2019-03-18] MEDS ORDERED: FERRIC CARBOXYMALTOSE INJ 750 MG/15 ML VIAL IV PRN (14:45)
[2019-03-18] MEDS ORDERED: FERRIC CARBOXYMALTOSE 750 MG in NORMAL SALINE 250 ML IV ONE (16:00)
[2019-03-19] MEDS: DIAZEPAM INJ 10 MG/2 ML DISP.SYRIN IV PRN (00:03)
[2019-03-19] MEDS: LEVALBUTEROL HCL NEB 1.25 MG/3 ML AMPUL NEB SCH ×3 (00:22→17:09)
[2019-03-19] MEDS: IPRATROPIUM BROMIDE 0.02% NEB 0.5 MG/2.5 ML AMPUL NEB SCH ×3 (00:22→17:09)
[2019-03-19] MEDS: PROPOFOL 1,000 MG/100 ML INFUS..BTL IV PRN ×3 (04:03→21:53)
[2019-03-19 04:42] LABS: ARTERIAL BLOOD BASE EXCESS -4.9 mmol/L; ARTERIAL BLOOD H2CO3 0.88 mmol/L (1.05-1.35); ARTERIAL BLOOD HCO3 18.8 mmol/L (20-24); ARTERIAL BLOOD O2 SATURATION 96.7 % (94-98); ARTERIAL BLOOD PCO2 29.1 mmHg (35-45); ARTERIAL BLOOD PH 7.43 (7.35-7.45); ARTERIAL BLOOD PO2 83.9 mmHg (80-100); ARTERIAL BLOOD TOTAL CO2 19.6 mmol/L (23-27)
[2019-03-19 04:43] LABS: ARTERIAL BLOOD FIO2 21%
[2019-03-19 04:48] LABS: ABSOLUTE BASOPHILS # (AUTO) 0.1 10^3/uL (0.0-0.2); ABSOLUTE EOSINOPHILS # (AUTO) 0.1 10^3/uL (0.0-0.6); ABSOLUTE LYMPHOCYTES (AUTO) 0.9 10^3/uL (0.5-4.7); ABSOLUTE MONOCYTES (AUTO) 0.6 10^3/uL (0.1-1.4); ABSOLUTE NEUT (AUTO) 6.8 10^3/uL (1.7-8.2); BASOPHILS % (AUTO) 0.6 % (0-2); EOSINOPHILS % (AUTO) 0.6 % (0-6); LYMPHOCYTES % (AUTO) 10.2 % (13-45); MEAN CORPUSCULAR HEMOGLOBIN 30.6 pg (27.0-33.4); MEAN CORPUSCULAR VOLUME 90 fl (80-97); MONOCYTES % (AUTO) 7.5 % (3-13); PLATELET COUNT 272 10^3/uL (150-450); RED BLOOD COUNT 2.55 10^6/uL (4.35-5.55); RED CELL DISTRIBUTION WIDTH 14.8 % (11.5-14.0); SEGMENTED NEUTROPHILS % (AUTO) 81.1 % (42-78); TOTAL CELLS COUNTED % (AUTO) 100 %; WHITE BLOOD COUNT 8.4 10^3/uL (4.0-10.5)
[2019-03-19 04:49] LABS: HEMOGLOBIN 7.8 g/dL (13.5-17.0)
[2019-03-19 05:10] LABS: ALANINE AMINOTRANSFERASE 18 U/L (21-72); ALBUMIN 1.9 g/dL (3.5-5.0); ALKALINE PHOSPHATASE 72 U/L (38-126); AMYLASE 37 U/L (30-110); ANION GAP 8 (5-19); ASPARTATE AMINO TRANSFERASE 17 U/L (17-59); BILIRUBIN,DIRECT 0.3 mg/dL (0.0-0.4); BILIRUBIN,TOTAL 0.4 mg/dL (0.2-1.3); BLOOD UREA NITROGEN 10 mg/dL (7-20); CALCIUM 8.2 mg/dL (8.4-10.2); CARBON DIOXIDE 19 mmol/L (22-30); CHLORIDE 107 mmol/L (98-107); GLUCOSE 97 mg/dL (75-110); LIPASE 78.4 U/L (23-300); PHOSPHORUS 3.3 mg/dL (2.5-4.5); POTASSIUM 3.9 mmol/L (3.6-5.0); SODIUM 133.6 mmol/L (137-145); TOTAL PROTEIN 4.5 g/dL (6.3-8.2)
[2019-03-19] MEDS: HEPARIN SOD (PORCINE) 5,000 UNIT/ML 1 ML SYRINGE SUBCUT SCH ×3 (05:19→21:53)
--- NOTE | 2019-03-19 07:00 | RADIOLOGY REPORT (SQ) ---
EXAM DESCRIPTION: XR CHEST 1 VIEW COMPLETED DATE/TME: 03/19/2019 06:00 CLINICAL HISTORY: 63 years Male, resp failure/pna COMPARISON: One day prior. NUMBER OF VIEWS/TECHNIQUE: 1/AP FINDINGS: Moderate mixed airspace and interstitial opacities. Small hazy opacity-effusion of bilateral lower hemithoraces.Adequate appearing endotracheal tube. Adequate appearing enteric tube partially obscured.Adequate appearing right subclavian central line. Atherosclerotic vascular disease. Normal cardiac silhouette size. No pneumothorax. Stable bony thorax. IMPRESSION: No significant change.
[2019-03-19] MEDS: BUDESONIDE NEB 0.5 MG/2 ML AMPUL NEB SCH ×2 (08:35→20:50)
[2019-03-19] MEDS: FOLIC ACID 1 MG TABLET NG SCH (10:07)
[2019-03-19] MEDS: PANTOPRAZOLE SODIUM 40 MG PACKET.DR NG SCH (10:08)
[2019-03-19] MEDS: THIAMINE HCL 100 MG TABLET NG SCH (10:08)
[2019-03-19] MEDS: MAGNESIUM OXIDE 400 MG TABLET PO SCH ×2 (10:08→17:37)
[2019-03-19] MEDS: POTASSIUM CHLORIDE 20 MEQ PACKET NG SCH ×2 (10:08→17:36)
[2019-03-19] MEDS: CEFTRIAXONE SODIUM 1,000 MG in DEXTROSE 5%-WATER 50 ML IV SCH (10:08)
--- NOTE | 2019-03-19 11:46 | PDOC PROGRESS REPORT ---
Subjective Progress Note for:: 03/19/19 Subjective:: Patient is intubated and sedated Reason For Visit: SEVERE HYPONATREMIA Physical Exam Vital Signs: Temp Pulse Resp BP Pulse Ox 97.7 F 60 18 170/87 H 100 03/19/19 08:00 03/19/19 10:00 03/19/19 10:07 03/19/19 10:07 03/19/19 10:07 Intake & Output 03/18/19 03/19/19 03/20/19 06:59 06:59 06:59 Intake Total 4228 1560 117 Output Total 555 545 55 Balance 3673 1015 62 Weight 56.5 kg 57.5 kg General appearance: PRESENT: no acute distress, disheveled, thin Head exam: PRESENT: atraumatic, normocephalic Ear exam: PRESENT: normal external ear exam Mouth exam: PRESENT: moist, tongue midline Neck exam: ABSENT: carotid bruit, JVD, lymphadenopathy, thyromegaly Respiratory exam: PRESENT: decreased breath sounds, prolonged expiratory phas Cardiovascular exam: PRESENT: RRR, +S1, +S2 Pulses: PRESENT: normal dorsalis pedis pul Vascular exam: PRESENT: normal capillary refill Rectal exam: PRESENT: deferred Gentrourinary exam: PRESENT: indwelling catheter Extremities exam: PRESENT: full ROM. ABSENT: calf tenderness, clubbing, pedal edema Neurological exam: ABSENT: awake Skin exam: PRESENT: dry, warm. ABSENT: rash, skin tears Results Laboratory Results: 03/19/19 04:30 03/19/19 04:30 03/19/19 03/19/19 03/19/19 04:30 04:30 04:30 WBC 8.4 RBC 2.55 L Hgb 7.8 L Hct 23.0 L MCV 90 MCH 30.6 MCHC 34.0 RDW 14.8 H Plt Count 272 Seg Neutrophils % 81.1 H Lymphocytes % 10.2 L Monocytes % 7.5 Eosinophils % 0.6 Basophils % 0.6 Absolute Neutrophils 6.8 Absolute Lymphocytes 0.9 Absolute Monocytes 0.6 Absolute Eosinophils 0.1 Absolute Basophils 0.1 Carbonic Acid 0.88 L HCO3/H2CO3 Ratio 21:1 ABG pH 7.43 ABG pCO2 29.1 L ABG pO2 83.9 ABG HCO3 18.8 L ABG O2 Saturation 96.7 ABG Base Excess -4.9 FiO2 21% Sodium 133.6 L Potassium 3.9 Chloride 107 Carbon Dioxide 19 L Anion Gap 8 BUN 10 Creatinine 0.61 Est GFR ( Amer) > 60 Est GFR (Non-Af Amer) > 60 Glucose 97 Calcium 8.2 L Phosphorus 3.3 Magnesium 1.7 Total Bilirubin 0.4 AST 17 ALT 18 L Alkaline Phosphatase 72 Total Protein 4.5 L Albumin 1.9 L Amylase 37 Lipase 78.4 03/17/19 01:45 Tracheal Aspirate Gram Stain - Final 03/17/19 01:45 Tracheal Aspirate Sputum Culture - Final C.albicans/C.dubliniensis Normal Erica 03/15/19 03/15/19 13:23 13:23 Creatine Kinase 62 CK-MB (CK-2) 2.61 Troponin I 0.014 Impressions: Head CT 03/15/19 13:19 IMPRESSION: Limited study. Motion artifact. No acute findings. EVIDENCE OF ACUTE STROKE: NO. Chest X-Ray 03/19/19 06:00 IMPRESSION: No significant change. Assessment & Plan - Diagnosis (1) Acute hypoxemic respiratory failure Is this a current diagnosis for this admission?: Yes Plan: Continue sedation vacations patient is doing well on pressure support and CPAP (2) Alcohol withdrawal Qualifiers: Complication of substance-induced condition: with unspecified complication Qualified Code(s): F10.239 - Alcohol dependence with withdrawal, unspecified Is this a current diagnosis for this admission?: Yes Plan: Continue to monitor mental status (3) COPD (chronic obstructive pulmonary disease) Qualifiers: COPD type: chronic bronchitis Is this a current diagnosis for this admission?: Yes Plan: Patient on long acting beta agonist plus long-acting muscarinic agent - Time Total Critical Time (Minutes): 40 Inpatient Scribe Statement - . Entered by Maribell Mauro, acting as scribe for .
[2019-03-19] MEDS: HYDRALAZINE HCL INJ/PF 20 MG/1 ML SDV IV PRN (13:24)
--- NOTE | 2019-03-19 17:40 | PDOC PROGRESS REPORT ---
Subjective Progress Note for:: 03/19/19 Subjective:: RAPHAEL BROWN is a 63 year old male who is unable to provide a satisfactory history and so most of the history is obtained from the electronic record. Apparently he was brought in by his sister because he was "not acting right." His vital signs were stable and he is able to answer some questions but his responses are very delayed. He was found to have a sodium of 112. It is not known how long his sodium is been down that low. He is not on any medications that should lower his sodium. In the bag that he had with him at his bedside, the only medications he had were ferrous sulfate, omeprazole, and hydralazine. He also had a Symbicort inhaler and an albuterol inhaler. Patient responds appropriately to verbal command. His blood work shows improvement in his hemoglobin after transfusion of 2 PRBC. Hemoglobin is 7.8. His hyponatremia is also resolving. Reason For Visit: SEVERE HYPONATREMIA Physical Exam Vital Signs: Temp Pulse Resp BP Pulse Ox 98.4 F 68 20 126/73 H 100 03/19/19 16:00 03/19/19 17:10 03/19/19 17:10 03/19/19 16:00 03/19/19 17:10 Intake & Output 03/18/19 03/19/19 03/20/19 06:59 06:59 06:59 Intake Total 4228 1560 145 Output Total 555 545 255 Balance 3673 1015 -110 Weight 56.5 kg 57.5 kg General appearance: PRESENT: no acute distress Head exam: PRESENT: atraumatic Eye exam: PRESENT: conjunctiva pink Respiratory exam: PRESENT: decreased breath sounds Cardiovascular exam: PRESENT: RRR. ABSENT: diastolic murmur, rubs, systolic murmur Neurological exam: PRESENT: awake Results Laboratory Results: 03/19/19 04:30 03/19/19 04:30 03/19/19 03/19/19 03/19/19 04:30 04:30 04:30 WBC 8.4 RBC 2.55 L Hgb 7.8 L Hct 23.0 L MCV 90 MCH 30.6 MCHC 34.0 RDW 14.8 H Plt Count 272 Seg Neutrophils % 81.1 H Lymphocytes % 10.2 L Monocytes % 7.5 Eosinophils % 0.6 Basophils % 0.6 Absolute Neutrophils 6.8 Absolute Lymphocytes 0.9 Absolute Monocytes 0.6 Absolute Eosinophils 0.1 Absolute Basophils 0.1 Carbonic Acid 0.88 L HCO3/H2CO3 Ratio 21:1 ABG pH 7.43 ABG pCO2 29.1 L ABG pO2 83.9 ABG HCO3 18.8 L ABG O2 Saturation 96.7 ABG Base Excess -4.9 FiO2 21% Sodium 133.6 L Potassium 3.9 Chloride 107 Carbon Dioxide 19 L Anion Gap 8 BUN 10 Creatinine 0.61 Est GFR ( Amer) > 60 Est GFR (Non-Af Amer) > 60 Glucose 97 Calcium 8.2 L Phosphorus 3.3 Magnesium 1.7 Total Bilirubin 0.4 AST 17 ALT 18 L Alkaline Phosphatase 72 Total Protein 4.5 L Albumin 1.9 L Amylase 37 Lipase 78.4 03/17/19 01:45 Tracheal Aspirate Gram Stain - Final 03/17/19 01:45 Tracheal Aspirate Sputum Culture - Final C.albicans/C.dubliniensis Normal Erica 03/15/19 03/15/19 13:23 13:23 Creatine Kinase 62 CK-MB (CK-2) 2.61 Troponin I 0.014 Impressions: Head CT 03/15/19 13:19 IMPRESSION: Limited study. Motion artifact. No acute findings. EVIDENCE OF ACUTE STROKE: NO. Chest X-Ray 03/19/19 06:00 IMPRESSION: No significant change. Assessment and Plan - Diagnosis (1) Acute hypoxemic respiratory failure Is this a current diagnosis for this admission?: Yes Plan: Patient remained intubated. (2) Severe hyponatremia Is this a current diagnosis for this admission?: Yes Plan: His hyponatremia is resolving at admission his sodium level was 115.3 now it is 133.6. We will continue cautious hydration. (3) Normocytic anemia Is this a current diagnosis for this admission?: Yes Plan: Etiology is unclear. Most probably multifactorial. His hemoglobin was 5.4 and after 2 units of packed RBC the hemoglobin increased to 7.8. (4) COPD (chronic obstructive pulmonary disease) Qualifiers: Emphysema type: unspecified Is this a current diagnosis for this admission?: Yes Plan: Continue current regimen (5) Moderate malnutrition Is this a current diagnosis for this admission?: Yes Plan: Continue nutritional support. (6) Diastolic CHF Is this a current diagnosis for this admission?: Yes Plan: Continue current regimen.
[2019-03-19] MEDS: AMINO AC/PROTEIN HYDR/WHEY PRO 11 GM/45 ML PKT NG SCH (18:37)
[2019-03-20] MEDS: IPRATROPIUM BROMIDE 0.02% NEB 0.5 MG/2.5 ML AMPUL NEB SCH ×4 (00:42→23:55)
[2019-03-20] MEDS: LEVALBUTEROL HCL NEB 1.25 MG/3 ML AMPUL NEB SCH ×4 (00:42→23:55)
[2019-03-20] MEDS: HEPARIN SOD (PORCINE) 5,000 UNIT/ML 1 ML SYRINGE SUBCUT SCH ×3 (05:12→22:43)
[2019-03-20 05:57] LABS: HEMATOCRIT 23.4 % (37.9-51.0); MEAN CORPUSCULAR HEMOGLOBIN 30.6 pg (27.0-33.4); MEAN CORPUSCULAR HGB CONC 34.1 g/dL (32.0-36.0); MEAN CORPUSCULAR VOLUME 90 fl (80-97); PLATELET COUNT 309 10^3/uL (150-450); RED BLOOD COUNT 2.61 10^6/uL (4.35-5.55); RED CELL DISTRIBUTION WIDTH 14.8 % (11.5-14.0); WHITE BLOOD COUNT 8.2 10^3/uL (4.0-10.5)
[2019-03-20 06:02] LABS: ANION GAP 6 (5-19); BLOOD UREA NITROGEN 11 mg/dL (7-20); CALCIUM 8.4 mg/dL (8.4-10.2); CARBON DIOXIDE 21 mmol/L (22-30); CHLORIDE 108 mmol/L (98-107); GLUCOSE 105 mg/dL (75-110); POTASSIUM 4.4 mmol/L (3.6-5.0); SODIUM 135.2 mmol/L (137-145)
[2019-03-20 06:16] LABS: ARTERIAL BLOOD BASE EXCESS -3.2 mmol/L; ARTERIAL BLOOD H2CO3 0.82 mmol/L (1.05-1.35); ARTERIAL BLOOD HCO3 20.1 mmol/L (20-24); ARTERIAL BLOOD O2 SATURATION 97.2 % (94-98); ARTERIAL BLOOD PCO2 27.3 mmHg (35-45); ARTERIAL BLOOD PH 7.48 (7.35-7.45); ARTERIAL BLOOD PO2 85.6 mmHg (80-100); ARTERIAL BLOOD TOTAL CO2 20.9 mmol/L (23-27)
[2019-03-20 06:18] LABS: ARTERIAL BLOOD FIO2 21%
[2019-03-20 06:23] LABS: ABSOLUTE LYMPHOCYTES# (MANUAL) 1.2 10^3/uL (0.5-4.7); ABSOLUTE NEUTROPHILS# (MANUAL) 5.8 10^3/uL (1.7-8.2); BASOPHILS % (MANUAL) 1 % (0-2); EOSINOPHILS % (MANUAL) 1 % (0-6); LYMPHOCYTES % (MANUAL) 14 % (13-45); MONOCYTES % (MANUAL) 12 % (3-13); SEGMENTED NEUTROPHILS % (MAN) 71 % (42-78); TOTAL CELLS COUNTED 100
[2019-03-20 06:24] LABS: ANISOCYTOSIS SLIGHT; HYPOCHROMASIA SLIGHT
[2019-03-20 06:25] LABS: PLATELET COMMENT ADEQUATE; TOXIC GRANULATION 1+
[2019-03-20] MEDS: BUDESONIDE NEB 0.5 MG/2 ML AMPUL NEB SCH ×2 (08:33→20:55)
[2019-03-20] MEDS: PROPOFOL 1,000 MG/100 ML INFUS..BTL IV PRN (08:33)
--- NOTE | 2019-03-20 08:33 | RADIOLOGY REPORT (SQ) ---
EXAM DESCRIPTION: CHEST SINGLE VIEW COMPLETED DATE/TIME: 03/20/2019 6:28 am REASON FOR STUDY: pna COMPARISON: 03/19/2019 NUMBER OF VIEWS: One view. TECHNIQUE: Single frontal radiographic image of the chest acquired. LIMITATIONS: None. FINDINGS: LUNGS AND PLEURA: There is increasing perihilar and bibasilar airspace disease. This coul d represent edema or pneumonia. MEDIASTINUM AND HILAR STRUCTURES: Stable heart size and mediastinal structures. HEART AND VASCULAR STRUCTURES: Stable appearance. SUPPORT DEVICES: Appropriate location without change. BONES: No acute findings. OTHER: No other significant finding. IMPRESSION: Increasing perihilar and bibasilar airspace disease. This could represent pneumonia or edema. Support lines and tubes remain in satisfactory position. TECHNICAL DOCUMENTATION: JOB ID: [id number] [employer]- All Rights Reserved Reading location - IP/workstation name: [email or web address]
[2019-03-20] MEDS: POTASSIUM CHLORIDE 20 MEQ PACKET NG SCH ×2 (11:09→17:44)
[2019-03-20] MEDS: MAGNESIUM OXIDE 400 MG TABLET PO SCH ×2 (11:09→17:44)
[2019-03-20] MEDS: FOLIC ACID 1 MG TABLET NG SCH (11:09)
[2019-03-20] MEDS: LISINOPRIL 5 MG TABLET NG SCH (11:09)
[2019-03-20] MEDS: THIAMINE HCL 100 MG TABLET NG SCH (11:10)
[2019-03-20] MEDS: PANTOPRAZOLE SODIUM 40 MG PACKET.DR NG SCH (11:10)
[2019-03-20] MEDS: CEFTRIAXONE SODIUM 1,000 MG in DEXTROSE 5%-WATER 50 ML IV SCH (11:10)
--- NOTE | 2019-03-20 12:41 | PDOC PROGRESS REPORT ---
Subjective Progress Note for:: 03/20/19 Subjective:: Patient seen while he is lying in bed. He remained intubated. Currently he is on a weaning trial and is potential for extubation. His tube feeding has been started. Reason For Visit: SEVERE HYPONATREMIA Physical Exam Vital Signs: Temp Pulse Resp BP Pulse Ox 98.4 F 76 24 H 172/89 H 99 03/20/19 08:00 03/20/19 10:00 03/20/19 11:00 03/20/19 10:45 03/20/19 11:00 Intake & Output 03/19/19 03/20/19 03/21/19 06:59 06:59 06:59 Intake Total 1560 217 80 Output Total 545 830 350 Balance 1014 -801 -626 Weight 57.5 kg 58.4 kg General appearance: PRESENT: no acute distress Eye exam: PRESENT: conjunctiva pink Neck exam: ABSENT: carotid bruit, JVD, lymphadenopathy, thyromegaly Respiratory exam: PRESENT: clear to auscultation pierre. ABSENT: rales, rhonchi, wheezes Cardiovascular exam: PRESENT: RRR. ABSENT: diastolic murmur, rubs, systolic murmur Results Laboratory Results: 03/20/19 05:16 03/20/19 05:16 03/20/19 03/20/19 03/20/19 05:16 05:16 05:31 WBC 8.2 RBC 2.61 L Hgb 8.0 L Hct 23.4 L MCV 90 MCH 30.6 MCHC 34.1 RDW 14.8 H Plt Count 309 Seg Neutrophils % Not Reportable Lymphocytes % Not Reportable Monocytes % Not Reportable Eosinophils % Not Reportable Basophils % Not Reportable Absolute Neutrophils Not Reportable Absolute Lymphocytes Not Reportable Absolute Monocytes Not Reportable Absolute Eosinophils Not Reportable Absolute Basophils Not Reportable Carbonic Acid 0.82 L HCO3/H2CO3 Ratio 24:1 ABG pH 7.48 H ABG pCO2 27.3 L ABG pO2 85.6 ABG HCO3 20.1 ABG O2 Saturation 97.2 ABG Base Excess -3.2 FiO2 21% Sodium 135.2 L Potassium 4.4 Chloride 108 H Carbon Dioxide 21 L Anion Gap 6 BUN 11 Creatinine 0.64 Est GFR ( Amer) > 60 Est GFR (Non-Af Amer) > 60 Glucose 105 Calcium 8.4 Magnesium 1.7 03/17/19 01:45 Tracheal Aspirate Gram Stain - Final 03/17/19 01:45 Tracheal Aspirate Sputum Culture - Final C.albicans/C.dubliniensis Normal Erica 03/15/19 03/15/19 13:23 13:23 Creatine Kinase 62 CK-MB (CK-2) 2.61 Troponin I 0.014 Impressions: Head CT 03/15/19 13:19 IMPRESSION: Limited study. Motion artifact. No acute findings. EVIDENCE OF ACUTE STROKE: NO. Chest X-Ray 03/20/19 06:00 IMPRESSION: Increasing perihilar and bibasilar airspace disease. This could represent pneumonia or edema. Support lines and tubes remain in satisfactory position. Assessment and Plan - Diagnosis (1) Acute hypoxemic respiratory failure Is this a current diagnosis for this admission?: Yes Plan: Currently patient is on weaning creatinine he will be extubated approximately today. (2) Severe hyponatremia Is this a current diagnosis for this admission?: Yes Plan: Been improving. (3) Normocytic anemia Is this a current diagnosis for this admission?: Yes Plan: His hemoglobin maintained at 8. (4) COPD (chronic obstructive pulmonary disease) Qualifiers: Emphysema type: unspecified Is this a current diagnosis for this admission?: Yes Plan: Continue current regimen (5) Moderate malnutrition Is this a current diagnosis for this admission?: Yes Plan: Continue nutritional support. (6) Diastolic CHF Is this a current diagnosis for this admission?: Yes Plan: Continue current regimen.
[2019-03-20] MEDS: HYDRALAZINE HCL INJ/PF 20 MG/1 ML SDV IV PRN ×2 (13:16→17:28)
--- NOTE | 2019-03-20 14:30 | PDOC PROGRESS REPORT ---
Subjective Progress Note for:: 03/20/19 Subjective:: Patient is intubated and sedated Reason For Visit: SEVERE HYPONATREMIA Physical Exam Vital Signs: Temp Pulse Resp BP Pulse Ox 98.8 F 78 19 178/78 H 99 03/20/19 12:00 03/20/19 13:08 03/20/19 13:08 03/20/19 13:08 03/20/19 13:08 Intake & Output 03/19/19 03/20/19 03/21/19 06:59 06:59 06:59 Intake Total 1560 217 80 Output Total 545 830 450 Balance 1015 -613 -370 Weight 57.5 kg 58.4 kg General appearance: PRESENT: no acute distress, disheveled, thin Head exam: PRESENT: atraumatic, normocephalic Eye exam: PRESENT: conjunctiva pink, EOMI, PERRLA. ABSENT: scleral icterus Ear exam: PRESENT: normal external ear exam Mouth exam: PRESENT: moist, tongue midline Neck exam: ABSENT: carotid bruit, JVD, lymphadenopathy, thyromegaly Respiratory exam: PRESENT: decreased breath sounds, prolonged expiratory phas Pulses: PRESENT: normal dorsalis pedis pul Vascular exam: PRESENT: normal capillary refill GI/Abdominal exam: PRESENT: normal bowel sounds, soft. ABSENT: distended, guarding, mass, organolmegaly, rebound, tenderness Rectal exam: PRESENT: deferred Extremities exam: PRESENT: full ROM. ABSENT: calf tenderness, clubbing, pedal edema Neurological exam: PRESENT: awake. ABSENT: alert, motor sensory deficit Psychiatric exam: PRESENT: appropriate affect, normal mood. ABSENT: homicidal ideation, suicidal ideation Skin exam: PRESENT: dry, intact, warm. ABSENT: cyanosis, rash Results Laboratory Results: 03/20/19 05:16 03/20/19 05:16 03/20/19 03/20/19 03/20/19 05:16 05:16 05:31 WBC 8.2 RBC 2.61 L Hgb 8.0 L Hct 23.4 L MCV 90 MCH 30.6 MCHC 34.1 RDW 14.8 H Plt Count 309 Seg Neutrophils % Not Reportable Lymphocytes % Not Reportable Monocytes % Not Reportable Eosinophils % Not Reportable Basophils % Not Reportable Absolute Neutrophils Not Reportable Absolute Lymphocytes Not Reportable Absolute Monocytes Not Reportable Absolute Eosinophils Not Reportable Absolute Basophils Not Reportable Carbonic Acid 0.82 L HCO3/H2CO3 Ratio 24:1 ABG pH 7.48 H ABG pCO2 27.3 L ABG pO2 85.6 ABG HCO3 20.1 ABG O2 Saturation 97.2 ABG Base Excess -3.2 FiO2 21% Sodium 135.2 L Potassium 4.4 Chloride 108 H Carbon Dioxide 21 L Anion Gap 6 BUN 11 Creatinine 0.64 Est GFR ( Amer) > 60 Est GFR (Non-Af Amer) > 60 Glucose 105 Calcium 8.4 Magnesium 1.7 03/17/19 01:45 Tracheal Aspirate Gram Stain - Final 03/17/19 01:45 Tracheal Aspirate Sputum Culture - Final C.albicans/C.dubliniensis Normal Erica 03/15/19 03/15/19 13:23 13:23 Creatine Kinase 62 CK-MB (CK-2) 2.61 Troponin I 0.014 Impressions: Head CT 03/15/19 13:19 IMPRESSION: Limited study. Motion artifact. No acute findings. EVIDENCE OF ACUTE STROKE: NO. Chest X-Ray 03/20/19 06:00 IMPRESSION: Increasing perihilar and bibasilar airspace disease. This could represent pneumonia or edema. Support lines and tubes remain in satisfactory position. Assessment & Plan - Diagnosis (1) Acute hypoxemic respiratory failure Is this a current diagnosis for this admission?: Yes Plan: Continue sedation vacations patient is doing well on pressure support and CPAP (2) Alcohol withdrawal Qualifiers: Complication of substance-induced condition: with unspecified complication Qualified Code(s): F10.239 - Alcohol dependence with withdrawal, unspecified Is this a current diagnosis for this admission?: Yes Plan: Continue to monitor mental status (3) COPD (chronic obstructive pulmonary disease) Qualifiers: COPD type: chronic bronchitis Is this a current diagnosis for this admission?: Yes Plan: Patient on long acting beta agonist plus long-acting muscarinic agent - Time Total Critical Time (Minutes): 45 Inpatient Scribe Statement - . Entered by Maribell Mauro, acting as scribe for .
[2019-03-20] MEDS: DIAZEPAM INJ 10 MG/2 ML DISP.SYRIN IV PRN (15:56)
[2019-03-20] MEDS: AMINO AC/PROTEIN HYDR/WHEY PRO 11 GM/45 ML PKT NG SCH (17:45)
[2019-03-20] MEDS: LORAZEPAM INJ 2 MG/1 ML VIAL IV PRN (17:58)
[2019-03-20] MEDS: NORMAL SALINE 1000 ML 1,000 ML IV PRN (18:07)
[2019-03-20] MEDS: METOPROLOL TARTRATE PF/INJ 5 MG/5 ML SDV IV PRN (18:39)
[2019-03-21] MEDS: DIAZEPAM INJ 10 MG/2 ML DISP.SYRIN IV PRN (01:26)
[2019-03-21] MEDS: METOPROLOL TARTRATE PF/INJ 5 MG/5 ML SDV IV PRN (01:28)
[2019-03-21] MEDS ORDERED: FUROSEMIDE INJ/PF 20 MG/2 ML SDV ONE (03:13)
[2019-03-21] MEDS: HYDRALAZINE HCL INJ/PF 20 MG/1 ML SDV IV PRN ×5 (03:16→22:16)
[2019-03-21] MEDS ORDERED: FUROSEMIDE INJ/PF 20 MG/2 ML SDV IV ONE (03:20)
[2019-03-21 03:43] LABS: HEMATOCRIT 24.4 % (37.9-51.0); HEMOGLOBIN 8.2 g/dL (13.5-17.0); MEAN CORPUSCULAR HGB CONC 33.5 g/dL (32.0-36.0); MEAN CORPUSCULAR VOLUME 90 fl (80-97); RED BLOOD COUNT 2.72 10^6/uL (4.35-5.55); RED CELL DISTRIBUTION WIDTH 14.8 % (11.5-14.0); WHITE BLOOD COUNT 10.3 10^3/uL (4.0-10.5)
[2019-03-21 03:52] LABS: ANION GAP 7 (5-19); BLOOD UREA NITROGEN 8 mg/dL (7-20); CALCIUM 8.5 mg/dL (8.4-10.2); CARBON DIOXIDE 22 mmol/L (22-30); CHLORIDE 107 mmol/L (98-107); GLUCOSE 97 mg/dL (75-110); POTASSIUM 4.1 mmol/L (3.6-5.0); SODIUM 135.8 mmol/L (137-145)
[2019-03-21 03:55] LABS: ARTERIAL BLOOD BASE EXCESS -1.5 mmol/L; ARTERIAL BLOOD HCO3 22.3 mmol/L (20-24); ARTERIAL BLOOD O2 SATURATION 98.2 % (94-98); ARTERIAL BLOOD PCO2 33.3 mmHg (35-45); ARTERIAL BLOOD PH 7.44 (7.35-7.45); ARTERIAL BLOOD PO2 109.9 mmHg (80-100); ARTERIAL BLOOD TOTAL CO2 23.3 mmol/L (23-27)
[2019-03-21] MEDS: LORAZEPAM INJ 2 MG/1 ML VIAL IV PRN (03:58)
[2019-03-21 04:01] LABS: ARTERIAL BLOOD FIO2 3L
[2019-03-21 04:08] LABS: ABSOLUTE LYMPHOCYTES# (MANUAL) 0.5 10^3/uL (0.5-4.7); ABSOLUTE MONOCYTES # (MANUAL) 0.4 10^3/uL (0.1-1.4); ABSOLUTE NEUTROPHILS# (MANUAL) 9.4 10^3/uL (1.7-8.2); BASOPHILS % (MANUAL) 0 % (0-2); EOSINOPHILS % (MANUAL) 0 % (0-6); LYMPHOCYTES % (MANUAL) 5 % (13-45); MONOCYTES % (MANUAL) 4 % (3-13); PLATELET CLUMPS PRESENT; PLATELET COMMENT ADEQUATE; SEGMENTED NEUTROPHILS % (MAN) 88 % (42-78); TOTAL CELLS COUNTED 100
[2019-03-21 04:12] LABS: ANISOCYTOSIS SLIGHT; BURR CELLS SLIGHT; OVALOCYTES SLIGHT; POLYCHROMASIA SLIGHT; SCHISTOCYTES SLIGHT; TOXIC GRANULATION 1+
[2019-03-21 04:13] LABS: METAMYELOCYTES % (MANUAL) 3 % (0)
[2019-03-21 04:14] LABS: PLATELET COUNT 329 10^3/uL (150-450)
[2019-03-21] MEDS: HEPARIN SOD (PORCINE) 5,000 UNIT/ML 1 ML SYRINGE SUBCUT SCH ×3 (05:43→22:16)
[2019-03-21] MEDS: LEVALBUTEROL HCL NEB 1.25 MG/3 ML AMPUL NEB SCH ×2 (08:07→16:51)
[2019-03-21] MEDS: IPRATROPIUM BROMIDE 0.02% NEB 0.5 MG/2.5 ML AMPUL NEB SCH ×2 (08:07→16:51)
[2019-03-21] MEDS: BUDESONIDE NEB 0.5 MG/2 ML AMPUL NEB SCH ×2 (08:07→20:10)
[2019-03-21] MEDS: POTASSIUM CHLORIDE 20 MEQ PACKET NG SCH ×2 (09:13→18:00)
[2019-03-21] MEDS: FOLIC ACID 1 MG TABLET NG SCH (09:13)
[2019-03-21] MEDS: MAGNESIUM OXIDE 400 MG TABLET PO SCH ×2 (09:13→17:59)
[2019-03-21] MEDS: LISINOPRIL 5 MG TABLET NG SCH (09:14)
[2019-03-21] MEDS: THIAMINE HCL 100 MG TABLET NG SCH (09:14)
[2019-03-21] MEDS: PANTOPRAZOLE SODIUM 40 MG PACKET.DR NG SCH (09:14)
[2019-03-21] MEDS: CEFTRIAXONE SODIUM 1,000 MG in DEXTROSE 5%-WATER 50 ML IV SCH (09:15)
[2019-03-21] MEDS: NORMAL SALINE 1000 ML 1,000 ML IV PRN (09:18)
--- NOTE | 2019-03-21 11:29 | PDOC PROGRESS REPORT ---
Subjective Progress Note for:: 03/21/19 Subjective:: Sats 100% on 3 liters Reason For Visit: SEVERE HYPONATREMIA Physical Exam Vital Signs: Temp Pulse Resp BP Pulse Ox 98.2 F 86 17 148/77 H 100 03/21/19 08:00 03/21/19 10:00 03/21/19 10:00 03/21/19 10:00 03/21/19 10:00 Intake & Output 03/20/19 03/21/19 03/22/19 06:59 06:59 06:59 Intake Total 217 370 640 Output Total 830 2800 200 Balance -613 -2430 440 Weight 58.4 kg 56.8 kg General appearance: PRESENT: no acute distress, disheveled, thin Head exam: PRESENT: atraumatic Eye exam: PRESENT: conjunctiva pink, EOMI, PERRLA. ABSENT: scleral icterus Ear exam: PRESENT: normal external ear exam Mouth exam: PRESENT: moist, tongue midline Neck exam: ABSENT: carotid bruit, JVD, lymphadenopathy, thyromegaly Respiratory exam: PRESENT: clear to auscultation pierre. ABSENT: rales, rhonchi, wheezes Cardiovascular exam: PRESENT: RRR. ABSENT: diastolic murmur, rubs, systolic murmur Pulses: PRESENT: normal dorsalis pedis pul Vascular exam: PRESENT: normal capillary refill GI/Abdominal exam: PRESENT: normal bowel sounds, soft. ABSENT: distended, guarding, mass, organolmegaly, rebound, tenderness Rectal exam: PRESENT: deferred Extremities exam: PRESENT: full ROM. ABSENT: calf tenderness, clubbing, pedal edema Neurological exam: PRESENT: awake, oriented to situation Psychiatric exam: PRESENT: appropriate affect, normal mood. ABSENT: homicidal ideation, suicidal ideation Skin exam: PRESENT: dry, intact, warm. ABSENT: cyanosis, rash Results Laboratory Results: 03/21/19 03:25 03/21/19 03:25 03/21/19 03/21/19 03/21/19 03:25 03:25 03:45 WBC 10.3 RBC 2.72 L Hgb 8.2 L Hct 24.4 L MCV 90 MCH 30.0 MCHC 33.5 RDW 14.8 H Plt Count 329 Seg Neutrophils % Not Reportable Lymphocytes % Not Reportable Monocytes % Not Reportable Eosinophils % Not Reportable Basophils % Not Reportable Absolute Neutrophils Not Reportable Absolute Lymphocytes Not Reportable Absolute Monocytes Not Reportable Absolute Eosinophils Not Reportable Absolute Basophils Not Reportable Carbonic Acid 1.00 L HCO3/H2CO3 Ratio 22:1 ABG pH 7.44 ABG pCO2 33.3 L ABG pO2 109.9 H ABG HCO3 22.3 ABG O2 Saturation 98.2 H ABG Base Excess -1.5 FiO2 3L Sodium 135.8 L Potassium 4.1 Chloride 107 Carbon Dioxide 22 Anion Gap 7 BUN 8 Creatinine 0.52 Est GFR ( Amer) > 60 Est GFR (Non-Af Amer) > 60 Glucose 97 Calcium 8.5 Magnesium 1.6 03/15/19 03/15/19 03/21/19 13:23 13:23 03:25 Creatine Kinase 62 CK-MB (CK-2) 2.61 Troponin I 0.014 NT-Pro-B Natriuret Pep 98889 H Impressions: Head CT 03/15/19 13:19 IMPRESSION: Limited study. Motion artifact. No acute findings. EVIDENCE OF ACUTE STROKE: NO. Chest X-Ray 03/20/19 06:00 IMPRESSION: Increasing perihilar and bibasilar airspace disease. This could represent pneumonia or edema. Support lines and tubes remain in satisfactory position. Assessment & Plan - Diagnosis (1) Acute hypoxemic respiratory failure Is this a current diagnosis for this admission?: Yes Plan: Patient on 3 liters via nc (2) Alcohol withdrawal Qualifiers: Complication of substance-induced condition: with unspecified complication Qualified Code(s): F10.239 - Alcohol dependence with withdrawal, unspecified Is this a current diagnosis for this admission?: Yes Plan: Continue to monitor mental status (3) COPD (chronic obstructive pulmonary disease) Qualifiers: COPD type: chronic bronchitis Is this a current diagnosis for this admission?: Yes Plan: Patient on long acting beta agonist plus long-acting muscarinic agent - Time Total Critical Time (Minutes): 45 Inpatient Scribe Statement - . Entered by Maribell Mauro, acting as scribe for .
[2019-03-21 12:22] LABS: PATH REVIEW PATHOLOGIST REVIEWED
--- NOTE | 2019-03-21 14:16 | PDOC PROGRESS REPORT ---
Subjective Progress Note for:: 03/21/19 Subjective:: Patient seen propped up in bed. He is extubated yesterday. Now he is on oxygen via nasal cannula. He is awake alert and responds appropriately. If he remains stable he is potential for downgrading tomorrow. Reason For Visit: SEVERE HYPONATREMIA Physical Exam Vital Signs: Temp Pulse Resp BP Pulse Ox 97.7 F 93 19 161/87 H 99 03/21/19 12:00 03/21/19 12:00 03/21/19 12:00 03/21/19 12:00 03/21/19 12:00 Intake & Output 03/20/19 03/21/19 03/22/19 06:59 06:59 06:59 Intake Total 217 370 640 Output Total 830 2800 325 Balance -613 -2430 315 Weight 58.4 kg 56.8 kg General appearance: PRESENT: no acute distress Respiratory exam: PRESENT: crackles Cardiovascular exam: PRESENT: RRR. ABSENT: diastolic murmur, rubs, systolic murmur Neurological exam: PRESENT: alert, awake Results Laboratory Results: 03/21/19 03:25 03/21/19 03:25 03/21/19 03/21/19 03/21/19 03:25 03:25 03:45 WBC 10.3 RBC 2.72 L Hgb 8.2 L Hct 24.4 L MCV 90 MCH 30.0 MCHC 33.5 RDW 14.8 H Plt Count 329 Seg Neutrophils % Not Reportable Lymphocytes % Not Reportable Monocytes % Not Reportable Eosinophils % Not Reportable Basophils % Not Reportable Absolute Neutrophils Not Reportable Absolute Lymphocytes Not Reportable Absolute Monocytes Not Reportable Absolute Eosinophils Not Reportable Absolute Basophils Not Reportable Carbonic Acid 1.00 L HCO3/H2CO3 Ratio 22:1 ABG pH 7.44 ABG pCO2 33.3 L ABG pO2 109.9 H ABG HCO3 22.3 ABG O2 Saturation 98.2 H ABG Base Excess -1.5 FiO2 3L Sodium 135.8 L Potassium 4.1 Chloride 107 Carbon Dioxide 22 Anion Gap 7 BUN 8 Creatinine 0.52 Est GFR ( Amer) > 60 Est GFR (Non-Af Amer) > 60 Glucose 97 Calcium 8.5 Magnesium 1.6 03/15/19 03/15/19 03/21/19 13:23 13:23 03:25 Creatine Kinase 62 CK-MB (CK-2) 2.61 Troponin I 0.014 NT-Pro-B Natriuret Pep 41230 H Impressions: Head CT 03/15/19 13:19 IMPRESSION: Limited study. Motion artifact. No acute findings. EVIDENCE OF ACUTE STROKE: NO. Chest X-Ray 03/20/19 06:00 IMPRESSION: Increasing perihilar and bibasilar airspace disease. This could represent pneumonia or edema. Support lines and tubes remain in satisfactory position. Assessment and Plan - Diagnosis (1) Acute hypoxemic respiratory failure Is this a current diagnosis for this admission?: Yes Plan: Status post extubation. Continue on oxygen via nasal cannula. Patient is potential downgrade tomorrow. (2) Severe hyponatremia Is this a current diagnosis for this admission?: Yes Plan: Been improving. (3) Normocytic anemia Is this a current diagnosis for this admission?: Yes Plan: His hemoglobin maintained at 8. (4) COPD (chronic obstructive pulmonary disease) Qualifiers: Emphysema type: unspecified Is this a current diagnosis for this admission?: Yes Plan: Continue current regimen (5) Moderate malnutrition Is this a current diagnosis for this admission?: Yes Plan: Continue nutritional support. (6) Diastolic CHF Is this a current diagnosis for this admission?: Yes Plan: Continue current regimen.
[2019-03-21] MEDS: AMINO AC/PROTEIN HYDR/WHEY PRO 11 GM/45 ML PKT NG SCH (18:00)
[2019-03-22] MEDS: IPRATROPIUM BROMIDE 0.02% NEB 0.5 MG/2.5 ML AMPUL NEB SCH ×3 (00:10→16:04)
[2019-03-22] MEDS: LEVALBUTEROL HCL NEB 1.25 MG/3 ML AMPUL NEB SCH ×3 (00:10→16:04)
[2019-03-22] MEDS: DIAZEPAM INJ 10 MG/2 ML DISP.SYRIN IV PRN ×3 (01:30→22:11)
[2019-03-22] MEDS: HEPARIN SOD (PORCINE) 5,000 UNIT/ML 1 ML SYRINGE SUBCUT SCH ×3 (05:12→22:13)
[2019-03-22 06:04] LABS: ARTERIAL BLOOD BASE EXCESS -1.3 mmol/L; ARTERIAL BLOOD H2CO3 0.96 mmol/L (1.05-1.35); ARTERIAL BLOOD HCO3 22.1 mmol/L (20-24); ARTERIAL BLOOD O2 SATURATION 97.9 % (94-98); ARTERIAL BLOOD PH 7.46 (7.35-7.45); ARTERIAL BLOOD TOTAL CO2 23.1 mmol/L (23-27)
[2019-03-22 06:07] LABS: ARTERIAL BLOOD FIO2 36%
[2019-03-22] MEDS: METOPROLOL TARTRATE PF/INJ 5 MG/5 ML SDV IV PRN ×2 (06:13→07:05)
[2019-03-22 06:17] LABS: HEMATOCRIT 25.7 % (37.9-51.0); HEMOGLOBIN 8.5 g/dL (13.5-17.0); MEAN CORPUSCULAR HEMOGLOBIN 29.8 pg (27.0-33.4); MEAN CORPUSCULAR HGB CONC 32.9 g/dL (32.0-36.0); MEAN CORPUSCULAR VOLUME 91 fl (80-97); PLATELET COUNT 410 10^3/uL (150-450); RED BLOOD COUNT 2.84 10^6/uL (4.35-5.55); RED CELL DISTRIBUTION WIDTH 14.8 % (11.5-14.0); WHITE BLOOD COUNT 11.2 10^3/uL (4.0-10.5)
[2019-03-22 06:36] LABS: ANION GAP 11 (5-19); BLOOD UREA NITROGEN 11 mg/dL (7-20); CALCIUM 8.7 mg/dL (8.4-10.2); CARBON DIOXIDE 23 mmol/L (22-30); CHLORIDE 106 mmol/L (98-107); GLUCOSE 97 mg/dL (75-110); POTASSIUM 3.6 mmol/L (3.6-5.0); SODIUM 139.6 mmol/L (137-145)
[2019-03-22] MEDS ORDERED: METOPROLOL TARTRATE PF/INJ 5 MG/5 ML SDV IV ONE (07:03)
[2019-03-22 07:35] LABS: ABSOLUTE LYMPHOCYTES# (MANUAL) 1.2 10^3/uL (0.5-4.7); ABSOLUTE MONOCYTES # (MANUAL) 0.6 10^3/uL (0.1-1.4); ABSOLUTE NEUTROPHILS# (MANUAL) 9.4 10^3/uL (1.7-8.2); BASOPHILS % (MANUAL) 0 % (0-2); EOSINOPHILS % (MANUAL) 0 % (0-6); LYMPHOCYTES % (MANUAL) 11 % (13-45); MONOCYTES % (MANUAL) 5 % (3-13); SEGMENTED NEUTROPHILS % (MAN) 84 % (42-78); TOTAL CELLS COUNTED 100
[2019-03-22 07:36] LABS: ANISOCYTOSIS SLIGHT; OVALOCYTES SLIGHT; PLATELET COMMENT ADEQUATE; POIKILOCYTOSIS SLIGHT
[2019-03-22] MEDS: BUDESONIDE NEB 0.5 MG/2 ML AMPUL NEB SCH ×2 (07:45→20:23)
[2019-03-22] MEDS: DILTIAZEM HCL/D5W 125 MG/125 ML RTUINJ IV PRN (09:00)
[2019-03-22] MEDS: MAGNESIUM OXIDE 400 MG TABLET PO SCH ×2 (10:34→17:13)
[2019-03-22] MEDS: FOLIC ACID 1 MG TABLET NG SCH (10:34)
[2019-03-22] MEDS: LISINOPRIL 5 MG TABLET NG SCH (10:34)
[2019-03-22] MEDS: POTASSIUM CHLORIDE 20 MEQ PACKET NG SCH ×2 (10:41→17:13)
[2019-03-22] MEDS: PANTOPRAZOLE SODIUM 40 MG PACKET.DR NG SCH (10:42)
[2019-03-22] MEDS: THIAMINE HCL 100 MG TABLET NG SCH (10:42)
[2019-03-22] MEDS: CEFTRIAXONE SODIUM 1,000 MG in DEXTROSE 5%-WATER 50 ML IV SCH (10:49)
--- NOTE | 2019-03-22 10:53 | EKG REPORT ---
SEVERITY:- BORDERLINE ECG - SINUS TACHYCARDIA PROBABLE LEFT ATRIAL ABNORMALITY BORDERLINE RIGHT AXIS DEVIATION LOW VOLTAGE IN FRONTAL LEADS : Confirmed by: Rose Crowley 22-Mar-2019 10:53:03
--- NOTE | 2019-03-22 11:38 | RADIOLOGY REPORT (SQ) ---
EXAM DESCRIPTION: CT CHEST WITHOUT COMPLETED DATE/TIME: 03/22/2019 11:14 am REASON FOR STUDY: hypoxia COMPARISON: Chest x-ray 03/22/2019 TECHNIQUE: CT scan performed of the chest without intravenous contrast. Images reviewed with lung, soft tissue and bone windows. Reconstructed coronal and sagittal MPR images reviewed. All images st ored on PACS. All CT scanners at this facility use dose modulation, iterative reconstruction, and/or weight based d osing when appropriate to reduce radiation dose to as low as reasonably achievable (ALARA). [facility]: Dose Right [facility]: CareDose [facility]: Dose Right [facility]: Teradose 4D [facility]: Smart Lookery RADIATION DOSE: CT Rad equipment meets quality standard of care and radiation dose reduction techniq ues were employed. CTDIvol: 9.2 mGy. DLP: 339 mGy-cm. mGy. LIMITATIONS: No technical limitations. FINDINGS: LUNGS AND PLEURA: Extensive ground-glass infiltrates are present. Significant bilateral p leural effusions are seen. No solid mass is seen. HILAR AND MEDIASTINAL STRUCTURES: No identified masses or abnormal nodes. No obvious aneurysm. HEART AND VASCULAR STRUCTURES: No aneurysm. Extensive aortic and coronary atherosclerosis. UPPER ABDOMEN: No significant findings. Limited exam. THYROID AND OTHER SOFT TISSUES: No masses. No adenopathy. BONES: No significant finding. HARDWARE: PICC on the right OTHER: No other significant findings. IMPRESSION: Extensive ground-glass infiltrates. Pulmonary edema versus infection. Significant bila teral pleural effusions. Atherosclerosis. There is a PICC on the right. TECHNICAL DOCUMENTATION: JOB ID: [id number] Quality ID # [id number]: Final reports with documentation of one or more dose reduction techniques (e.g., Au tomated exposure control, adjustment of the mA and/or kV according to patient size, use of iterative reconstruction technique) 2010 [employer]- All Rights Reserved Reading location - IP/workstation name: [email or web address]
--- NOTE | 2019-03-22 11:41 | RADIOLOGY REPORT (SQ) ---
EXAM DESCRIPTION: CHEST SINGLE VIEW COMPLETED DATE/TIME: 03/22/2019 11:22 am REASON FOR STUDY: pna COMPARISON: 03/20/2019 EXAM PARAMETERS: NUMBER OF VIEWS: One view. TECHNIQUE: Single frontal radiographic view of the chest acquired. RADIATION DOSE: NA LIMITATIONS: None. FINDINGS: LUNGS AND PLEURA: Increasing bilateral infiltrates. MEDIASTINUM AND HILAR STRUCTURES: No masses. Contour normal. HEART AND VASCULAR STRUCTURES: Heart normal in size. Normal vasculature. BONES: No acute findings. HARDWARE: PICC on the right. No endotracheal tube or NG tube. OTHER: No other significant finding. IMPRESSION: Increasing bilateral infiltrates. Pulmonary edema versus multicentric pneumonia. TECHNICAL DOCUMENTATION: JOB ID: [id number] [employer]- All Rights Reserved Reading location - IP/workstation name: [email or web address]
--- NOTE | 2019-03-22 15:57 | PDOC PROGRESS REPORT ---
Subjective Progress Note for:: 03/22/19 Subjective:: Assumed care today. Chart and ICU course reviewed. This is a 63 yr old male who was admitted for acute encpehalopathy. He was found to have severe hyponatremia and was started on hypertonic saline. He went into acute respiratory failure deeemd to be from likely aspiration pneumonia and DTs and was intubated on 03/17. He was extubated on 03/20. This morning around 6 AM, patient went into AFib with RVR. Apparently, he was given 2 doses of IV Lopressor but he had persistent AFib in the 140s. Upon initial encounter, patient is still in AFib. He is slightly tachpyneic and has significant rales bilaterally with decreased breath sounds on the bases. He will be started on Cardizem drip and will be upgraded to IMCU. Chest x-ray yesterday appears to show worsening airspace disease and pleural effusions. Will pursue a chest CT. 2 PM: Patient reassessed. He is now in normal sinus rhythm on minimal Cardizem infusion (2.5). He appears to be breathing better and is saturating well on 4 l[address] via NC. [address] CT shows significant pleural effusions bilaterally. He has been on Rocephin. Switch to Zosyn. Possible acute congestive heart failure. Start IV Lasix. Replace Potassium as needed. Will consult radiology if there is no improvement in pleural effusions with diuresis. Speech therapist has recommended keeping patient NPO over the next few days. Reason For Visit: SEVERE HYPONATREMIA Physical Exam Vital Signs: Temp Pulse Resp BP Pulse Ox 98.1 F 104 H 22 H 160/88 H 94 03/22/19 11:39 03/22/19 14:00 03/22/19 11:39 03/22/19 11:39 03/22/19 11:39 Intake & Output 03/21/19 03/22/19 03/23/19 06:59 06:59 06:59 Intake Total 370 690 50 Output Total 2800 960 Balance -2430 -270 50 Weight 125 lb 3.561 oz 123 lb 14.397 oz General appearance: PRESENT: no acute distress Head exam: PRESENT: atraumatic, normocephalic Eye exam: PRESENT: conjunctiva pink, EOMI, PERRLA. ABSENT: scleral icterus Ear exam: PRESENT: normal external ear exam Mouth exam: PRESENT: moist, tongue midline Neck exam: ABSENT: carotid bruit, JVD, lymphadenopathy, thyromegaly Respiratory exam: PRESENT: rales, rhonchi. ABSENT: wheezes Cardiovascular exam: PRESENT: RRR. ABSENT: diastolic murmur, rubs, systolic murmur Pulses: PRESENT: normal dorsalis pedis pul GI/Abdominal exam: PRESENT: normal bowel sounds, soft. ABSENT: distended, guarding, mass, organolmegaly, rebound, tenderness Rectal exam: PRESENT: deferred Neurological exam: PRESENT: CN II-XII grossly intact. ABSENT: oriented to person, oriented to place, oriented to time, motor sensory deficit Results Laboratory Results: 03/22/19 05:00 03/22/19 05:00 03/22/19 03/22/19 03/22/19 05:00 05:00 05:50 WBC 11.2 H RBC 2.84 L Hgb 8.5 L Hct 25.7 L MCV 91 MCH 29.8 MCHC 32.9 RDW 14.8 H Plt Count 410 Seg Neutrophils % Not Reportable Lymphocytes % Not Reportable Monocytes % Not Reportable Eosinophils % Not Reportable Basophils % Not Reportable Absolute Neutrophils Not Reportable Absolute Lymphocytes Not Reportable Absolute Monocytes Not Reportable Absolute Eosinophils Not Reportable Absolute Basophils Not Reportable Carbonic Acid 0.96 L HCO3/H2CO3 Ratio 23:1 ABG pH 7.46 H ABG pCO2 32.0 L ABG pO2 101.0 H ABG HCO3 22.1 ABG O2 Saturation 97.9 ABG Base Excess -1.3 FiO2 36% Sodium 139.6 Potassium 3.6 Chloride 106 Carbon Dioxide 23 Anion Gap 11 BUN 11 Creatinine 0.49 L Est GFR ( Amer) > 60 Est GFR (Non-Af Amer) > 60 Glucose 97 Calcium 8.7 Magnesium 1.9 03/17/19 11:14 Blood Blood Culture - Final NO GROWTH IN 5 DAYS 03/17/19 10:10 Blood Blood Culture - Final NO GROWTH IN 5 DAYS 03/15/19 03/15/19 03/21/19 13:23 13:23 03:25 Creatine Kinase 62 CK-MB (CK-2) 2.61 Troponin I 0.014 NT-Pro-B Natriuret Pep 22158 H Impressions: Head CT 03/15/19 13:19 IMPRESSION: Limited study. Motion artifact. No acute findings. EVIDENCE OF ACUTE STROKE: NO. Chest X-Ray 03/22/19 06:00 IMPRESSION: Increasing bilateral infiltrates. Pulmonary edema versus multicentric pneumonia. Chest CT 03/22/19 08:22 IMPRESSION: Extensive ground-glass infiltrates. Pulmonary edema versus infection. Significant bilateral pleural effusions. Atherosclerosis. There is a PICC on the right. Assessment and Plan - Diagnosis (1) New onset atrial fibrillation Is this a current diagnosis for this admission?: Yes Plan: Continue cardizem drip. Will discuss anticoagulation with family/DPOA as patient is not coherent. (2) Acute hypoxemic respiratory failure Is this a current diagnosis for this admission?: Yes Plan: Initially intubated due to aspiration pneumonia and DT. He was intubated on 03/17. He was extubated on 03/20. CT chest today shows significant bilateral pleural effusions. (3) COPD (chronic obstructive pulmonary disease) Qualifiers: Emphysema type: unspecified Is this a current diagnosis for this admission?: Yes Plan: Continue breathing treatments. (4) Hyponatremia Is this a current diagnosis for this admission?: Yes Plan: Resolved. Received hypertonic saline. (5) Pleural effusion Is this a current diagnosis for this admission?: Yes Plan: Start IV Lasix. Will consult radiology for thoracentesis if there is no improvement with diuresis. - Time Time Spent with patient: 25-34 minutes
[2019-03-22] MEDS ORDERED: POTASSI CL 20 MEQ/50 ML RIDER 20 MEQ/50 ML RTUPB IV ONE (16:00)
[2019-03-22] MEDS: FUROSEMIDE INJ/PF 40 MG/4 ML SDV IV SCH (16:04)
[2019-03-22] MEDS: AMINO AC/PROTEIN HYDR/WHEY PRO 11 GM/45 ML PKT NG SCH (17:13)
[2019-03-22] MEDS: PIPERACILLIN SODIUM/TAZOBACTAM 3.375 GM in NORMAL SALINE 100 ML IV SCH (23:41)
[2019-03-23] MEDS: IPRATROPIUM BROMIDE 0.02% NEB 0.5 MG/2.5 ML AMPUL NEB SCH ×3 (01:02→15:48)
[2019-03-23] MEDS: LEVALBUTEROL HCL NEB 1.25 MG/3 ML AMPUL NEB SCH ×3 (01:02→15:48)
[2019-03-23] MEDS: DIAZEPAM INJ 10 MG/2 ML DISP.SYRIN IV PRN (04:14)
[2019-03-23] MEDS: HEPARIN SOD (PORCINE) 5,000 UNIT/ML 1 ML SYRINGE SUBCUT SCH ×3 (05:10→22:00)
[2019-03-23] MEDS: FUROSEMIDE INJ/PF 40 MG/4 ML SDV IV SCH ×2 (05:10→17:09)
[2019-03-23] MEDS: HYDRALAZINE HCL INJ/PF 20 MG/1 ML SDV IV PRN ×3 (05:12→23:28)
[2019-03-23] MEDS: PIPERACILLIN SODIUM/TAZOBACTAM 3.375 GM in NORMAL SALINE 100 ML IV SCH ×4 (05:45→23:27)
[2019-03-23 07:01] LABS: ANION GAP 9 (5-19); BLOOD UREA NITROGEN 13 mg/dL (7-20); CALCIUM 9.2 mg/dL (8.4-10.2); CARBON DIOXIDE 29 mmol/L (22-30); CHLORIDE 104 mmol/L (98-107); GLUCOSE 121 mg/dL (75-110); POTASSIUM 3.3 mmol/L (3.6-5.0); SODIUM 142.2 mmol/L (137-145)
[2019-03-23] MEDS: BUDESONIDE NEB 0.5 MG/2 ML AMPUL NEB SCH ×2 (07:24→20:30)
[2019-03-23] MEDS: FOLIC ACID 1 MG TABLET NG SCH (09:47)
[2019-03-23] MEDS: MAGNESIUM OXIDE 400 MG TABLET PO SCH ×2 (09:47→17:04)
[2019-03-23] MEDS: PANTOPRAZOLE SODIUM 40 MG PACKET.DR NG SCH (09:49)
[2019-03-23] MEDS: POTASSIUM CHLORIDE 20 MEQ PACKET NG SCH ×2 (09:49→17:04)
[2019-03-23] MEDS: LISINOPRIL 5 MG TABLET NG SCH (09:49)
[2019-03-23] MEDS: THIAMINE HCL 100 MG TABLET NG SCH (09:49)
[2019-03-23] MEDS: POTASSIUM CHLORIDE 20 MEQ/50 ML RTU IV SCH ×2 (09:50→11:53)
--- NOTE | 2019-03-23 11:18 | PDOC PROGRESS REPORT ---
Subjective Progress Note for:: 03/23/19 Subjective:: Assumed care today. Chart and ICU course reviewed. This is a 63 yr old male who was admitted for acute encpehalopathy. He was found to have severe hyponatremia and was started on hypertonic saline. He went into acute respiratory failure deeemd to be from likely aspiration pneumonia and DTs and was intubated on 03/17. He was extubated on 03/20. 03/22: This morning around 6 AM, patient went into AFib with RVR. Apparently, he was given 2 doses of IV Lopressor but he had persistent AFib in the 140s. Upon initial encounter, patient is still in AFib. He is slightly tachpyneic and has significant rales bilaterally with decreased breath sounds on the bases. He will be started on Cardizem drip and will be upgraded to IMCU. Chest x-ray yesterday appears to show worsening airspace disease and pleural effusions. Will pursue a chest CT. 2 PM: Patient reassessed. He is now in normal sinus rhythm on minimal Cardizem infusion (2.5). He appears to be breathing better and is saturating well on 4 [address] NC. Chest CT shows significant pleural effusions bilaterally. He has been on Rocephin. Switch to Zosyn. Possible acute congestive heart failure. Start IV Lasix. Replace Potassium as needed. Will consult radiology if there is no improvement in pleural effusions with diuresis. Speech therapist has recommended keeping patient NPO over the next few days. 03/23: No acute event overnight. He remains on NSR on cardizem drip. He appears more conversant today and says he wants water but is not oriented. Weaned off BIPAP and he is now saturating well on nasal cannula. He has diuresed well overnight. Will repeat CXR today to reassess effusions. Able to contact patient' s son, Rohith who was updated about patient's status and plan of care. Discussed anticoagulation and he says he would have to discuss this further with his sister/DPMIHAI who is unreachable at the moment. Reason For Visit: SEVERE HYPONATREMIA Physical Exam Vital Signs: Temp Pulse Resp BP Pulse Ox 97.7 F 102 H 16 150/72 H 95 03/23/19 07:15 03/23/19 10:00 03/23/19 07:24 03/23/19 10:00 03/23/19 07:24 Intake & Output 03/22/19 03/23/19 03/24/19 06:59 06:59 06:59 Intake Total 690 250 Output Total 960 1850 Balance -270 -1600 Weight 123 lb 14.397 oz 121 lb 14.65 oz General appearance: PRESENT: no acute distress, well-developed, well-nourished Head exam: PRESENT: atraumatic, normocephalic Eye exam: PRESENT: conjunctival injection Ear exam: PRESENT: normal external ear exam Mouth exam: PRESENT: moist, tongue midline Neck exam: ABSENT: carotid bruit, JVD, lymphadenopathy, thyromegaly Respiratory exam: PRESENT: decreased breath sounds, rales, wheezes. ABSENT: rhonchi Cardiovascular exam: PRESENT: RRR. ABSENT: diastolic murmur, rubs, systolic murmur Pulses: PRESENT: normal dorsalis pedis pul GI/Abdominal exam: PRESENT: normal bowel sounds, soft. ABSENT: distended, guarding, mass, organolmegaly, rebound, tenderness Rectal exam: PRESENT: deferred Neurological exam: PRESENT: awake, CN II-XII grossly intact. ABSENT: motor sensory deficit Results Laboratory Results: 03/22/19 05:00 03/23/19 06:32 03/23/19 06:32 Sodium 142.2 Potassium 3.3 L Chloride 104 Carbon Dioxide 29 Anion Gap 9 BUN 13 Creatinine 0.62 Est GFR ( Amer) > 60 Est GFR (Non-Af Amer) > 60 Glucose 121 H Calcium 9.2 03/17/19 11:14 Blood Blood Culture - Final NO GROWTH IN 5 DAYS 03/17/19 10:10 Blood Blood Culture - Final NO GROWTH IN 5 DAYS 03/15/19 03/15/19 03/21/19 13:23 13:23 03:25 Creatine Kinase 62 CK-MB (CK-2) 2.61 Troponin I 0.014 NT-Pro-B Natriuret Pep 31064 H Impressions: Head CT 03/15/19 13:19 IMPRESSION: Limited study. Motion artifact. No acute findings. EVIDENCE OF ACUTE STROKE: NO. Chest CT 03/22/19 08:22 IMPRESSION: Extensive ground-glass infiltrates. Pulmonary edema versus infection. Significant bilateral pleural effusions. Atherosclerosis. There is a PICC on the right. Assessment and Plan - Diagnosis (1) New onset atrial fibrillation Is this a current diagnosis for this admission?: Yes Plan: On cardizem drernie. Able to contact patient's son, Rohith who was updated about patient's status and plan of care. CHADVASC of at least 1 (echo still pending). Discussed anticoagulation and he says he would have to discuss this further with his sister/DPOA who is unreachable at the moment. (2) Acute hypoxemic respiratory failure Is this a current diagnosis for this admission?: Yes Plan: Initially intubated due to aspiration pneumonia and DT. He was intubated on 03/17. He was extubated on 03/20. Currently on BIPAP. CT chest today shows significant bilateral pleural effusions. 03/22: Weaned off BIPAP. Saturating well on 4 lpm via NC. (3) COPD (chronic obstructive pulmonary disease) Qualifiers: Emphysema type: unspecified Is this a current diagnosis for this admission?: Yes Plan: Continue breathing treatments. (4) Hyponatremia Is this a current diagnosis for this admission?: Yes Plan: Resolved. Received hypertonic saline. (5) Pleural effusion Is this a current diagnosis for this admission?: Yes Plan: Start IV Lasix. Will consult radiology for thoracentesis if there is no improvement with diuresis. 03/23: He diuresed well. Repeat CXR to reassess effusion. (6) Aspiration pneumonia Is this a current diagnosis for this admission?: Yes Plan: Rocephin switched to Zosyn. (7) Hypokalemia Is this a current diagnosis for this admission?: Yes Plan: Lasix-induced. Replace K. Will order for scheduled IV Potassium while on high dose Lasix. - Time Time Spent with patient: 25-34 minutes
--- NOTE | 2019-03-23 11:41 | RADIOLOGY REPORT (SQ) ---
EXAM DESCRIPTION: CHEST SINGLE VIEW COMPLETED DATE/TIME: 03/23/2019 11:31 am REASON FOR STUDY: reassess infiltrates/effusion COMPARISON: 03/22/2019 NUMBER OF VIEWS: One view. TECHNIQUE: Single frontal radiographic image of the chest acquired. LIMITATIONS: None. FINDINGS: LUNGS AND PLEURA: Patchy bilateral airspace disease with slight improved aeration in the l eft lower lobe. Better definition of the left heart border. No large effusions. MEDIASTINUM AND HEART: Stable heart size and mediastinal structures. SUPPORT DEVICES: Appropriate location without change. BONY STRUCTURES: No acute findings. HARDWARE: None. OTHER: No other significant finding. IMPRESSION: Improving bilateral pneumonia. Reading location - IP/workstation name: [email or web address]
[2019-03-23] MEDS: DILTIAZEM HCL/D5W 125 MG/125 ML RTUINJ IV PRN (14:01)
[2019-03-23] MEDS: AMINO AC/PROTEIN HYDR/WHEY PRO 11 GM/45 ML PKT NG SCH (17:04)
[2019-03-23] MEDS ORDERED: LORAZEPAM 1 MG TABLET PO PRN (21:46)
[2019-03-23] MEDS ORDERED: LORAZEPAM INJ 2 MG/1 ML VIAL ONE (21:54)
[2019-03-23] MEDS ORDERED: LORAZEPAM INJ 2 MG/1 ML VIAL IV PRN (21:58)
[2019-03-23] MEDS: POTASSI CL 20 MEQ/50 ML RIDER 20 MEQ/50 ML RTUPB IV SCH (22:01)
[2019-03-24] MEDS: LEVALBUTEROL HCL NEB 1.25 MG/3 ML AMPUL NEB SCH ×3 (00:12→15:58)
[2019-03-24] MEDS: IPRATROPIUM BROMIDE 0.02% NEB 0.5 MG/2.5 ML AMPUL NEB SCH ×3 (00:12→15:58)
[2019-03-24] MEDS: CHLORPROMAZINE HCL INJ 25 MG/1 ML AMPULE IV PRN (04:22)
[2019-03-24 05:24] LABS: ABSOLUTE BASOPHILS # (AUTO) 0.1 10^3/uL (0.0-0.2); ABSOLUTE LYMPHOCYTES (AUTO) 0.7 10^3/uL (0.5-4.7); ABSOLUTE MONOCYTES (AUTO) 0.7 10^3/uL (0.1-1.4); ABSOLUTE NEUT (AUTO) 5.3 10^3/uL (1.7-8.2); BASOPHILS % (AUTO) 0.8 % (0-2); EOSINOPHILS % (AUTO) 0.4 % (0-6); HEMATOCRIT 25.8 % (37.9-51.0); HEMOGLOBIN 8.6 g/dL (13.5-17.0); LYMPHOCYTES % (AUTO) 10.5 % (13-45); MEAN CORPUSCULAR HEMOGLOBIN 30.1 pg (27.0-33.4); MEAN CORPUSCULAR HGB CONC 33.5 g/dL (32.0-36.0); MEAN CORPUSCULAR VOLUME 90 fl (80-97); MONOCYTES % (AUTO) 9.7 % (3-13); PLATELET COUNT 443 10^3/uL (150-450); RED BLOOD COUNT 2.87 10^6/uL (4.35-5.55); SEGMENTED NEUTROPHILS % (AUTO) 78.6 % (42-78); TOTAL CELLS COUNTED % (AUTO) 100 %; WHITE BLOOD COUNT 6.8 10^3/uL (4.0-10.5)
[2019-03-24 05:47] LABS: ANION GAP 9 (5-19); BLOOD UREA NITROGEN 14 mg/dL (7-20); CALCIUM 8.9 mg/dL (8.4-10.2); CARBON DIOXIDE 34 mmol/L (22-30); CHLORIDE 102 mmol/L (98-107); GLUCOSE 124 mg/dL (75-110)
[2019-03-24] MEDS: PIPERACILLIN SODIUM/TAZOBACTAM 3.375 GM in NORMAL SALINE 100 ML IV SCH ×3 (06:52→17:01)
[2019-03-24] MEDS: HEPARIN SOD (PORCINE) 5,000 UNIT/ML 1 ML SYRINGE SUBCUT SCH ×3 (06:55→21:17)
[2019-03-24] MEDS: BUDESONIDE NEB 0.5 MG/2 ML AMPUL NEB SCH ×2 (07:42→20:14)
[2019-03-24] MEDS ORDERED: POTASSI CL 20 MEQ/50 ML RIDER 20 MEQ/50 ML RTUPB IV SCH (08:00)
[2019-03-24] MEDS ORDERED: HALOPERIDOL LACTATE INJ 5 MG/1 ML VIAL IV PRN (08:02)
--- NOTE | 2019-03-24 08:58 | RADIOLOGY REPORT (SQ) ---
EXAM DESCRIPTION: CHEST SINGLE VIEW COMPLETED DATE/TIME: 03/24/2019 8:49 am REASON FOR STUDY: reassess infiltrates COMPARISON: 03/23/2019 NUMBER OF VIEWS: One view. TECHNIQUE: Single frontal radiographic image of the chest acquired. LIMITATIONS: None. FINDINGS: LUNGS AND PLEURA: Bilateral airspace disease with improved aeration in the right lower lob e. No pneumothorax. MEDIASTINUM AND HEART: Stable heart size and mediastinal structures. SUPPORT DEVICES: Appropriate location without change. BONY STRUCTURES: No acute findings. HARDWARE: None. OTHER: No other significant finding. IMPRESSION: Improving pneumonia. Reading location - IP/workstation name: [email or web address]
[2019-03-24] MEDS: POTASSI CL 20 MEQ/50 ML RIDER 20 MEQ/50 ML RTUPB IV SCH ×4 (09:10→21:19)
[2019-03-24] MEDS: FUROSEMIDE INJ/PF 40 MG/4 ML SDV IV SCH ×2 (09:21→17:02)
[2019-03-24] MEDS: DILTIAZEM HCL/D5W 125 MG/125 ML RTUINJ IV PRN (10:35)
[2019-03-24] MEDS: MAGNESIUM OXIDE 400 MG TABLET PO SCH ×2 (10:36→17:02)
[2019-03-24] MEDS: THIAMINE HCL 100 MG TABLET NG SCH (10:36)
[2019-03-24] MEDS: POTASSIUM CHLORIDE 20 MEQ PACKET NG SCH ×2 (10:36→17:02)
[2019-03-24] MEDS: LISINOPRIL 5 MG TABLET NG SCH (10:36)
[2019-03-24] MEDS: PANTOPRAZOLE SODIUM 40 MG PACKET.DR NG SCH (10:36)
[2019-03-24] MEDS: FOLIC ACID 1 MG TABLET NG SCH (10:36)
--- NOTE | 2019-03-24 15:08 | PDOC PROGRESS REPORT ---
Subjective Progress Note for:: 03/24/19 Subjective:: Assumed care today. Chart and ICU course reviewed. This is a 63 yr old male who was admitted for acute encpehalopathy. He was found to have severe hyponatremia and was started on hypertonic saline. He went into acute respiratory failure deeemd to be from likely aspiration pneumonia and DTs and was intubated on 03/17. He was extubated on 03/20. 03/22: This morning around 6 AM, patient went into AFib with RVR. Apparently, he was given 2 doses of IV Lopressor but he had persistent AFib in the 140s. Upon initial encounter, patient is still in AFib. He is slightly tachpyneic and has significant rales bilaterally with decreased breath sounds on the bases. He will be started on Cardizem drip and will be upgraded to IMCU. Chest x-ray yesterday appears to show worsening airspace disease and pleural effusions. Will pursue a chest CT. 2 PM: Patient reassessed. He is now in normal sinus rhythm on minimal Cardizem infusion (2.5). He appears to be breathing better and is saturating well on 4 l[address] via NC. Chest CT shows significant pleural effusions bilaterally. He has been on Rocephin. Switch to Zosyn. Possible acute congestive heart failure. Start IV Lasix. Replace Potassium as needed. Will consult radiology if there is no improvement in pleural effusions with diuresis. Speech therapist has recommended keeping patient NPO over the next few days. 03/23: He remains on NSR on cardizem drip. He appears more conversant today and says he wants water but is not oriented. Weaned off BIPAP and he is now saturating well on nasal cannula. He has diuresed well overnight. Will repeat CXR today to reassess effusions. Able to contact patient's son, Rohith who was updated about patient's status and plan of care. Discussed anticoagulation and he says he would have to discuss this further with his sister/DPOA who is unreachable at the moment. 03/24: No acute event overnight. Currently on sinus rhythm on cardizem drip. He remains NPO until reassessment by speech tomorrow. He had significant improvement with aggressive diuresis. Repeat chest x-ray shows significant improvement of airspace disease with IV Lasix in 24 hrs. Reason For Visit: SEVERE HYPONATREMIA Physical Exam Vital Signs: Temp Pulse Resp BP Pulse Ox 97.3 F 78 10 L 143/74 H 97 03/24/19 07:09 03/24/19 12:00 03/24/19 07:47 03/24/19 12:00 03/24/19 07:47 Intake & Output 03/23/19 03/24/19 03/25/19 06:59 06:59 06:59 Intake Total 250 425 203 Output Total 1850 3550 Balance -1600 -3125 203 Weight 121 lb 14.65 oz 119 lb 4.321 oz General appearance: PRESENT: no acute distress, well-developed, well-nourished Head exam: PRESENT: atraumatic, normocephalic Eye exam: PRESENT: conjunctiva pink, EOMI, PERRLA. ABSENT: scleral icterus Ear exam: PRESENT: normal external ear exam Mouth exam: PRESENT: moist, tongue midline Neck exam: ABSENT: carotid bruit, JVD, lymphadenopathy, thyromegaly Respiratory exam: PRESENT: rales, rhonchi. ABSENT: wheezes Cardiovascular exam: PRESENT: RRR. ABSENT: diastolic murmur, rubs, systolic murmur Pulses: PRESENT: normal dorsalis pedis pul Vascular exam: PRESENT: normal capillary refill GI/Abdominal exam: PRESENT: normal bowel sounds, soft. ABSENT: distended, guarding, mass, organolmegaly, rebound, tenderness Rectal exam: PRESENT: deferred Extremities exam: PRESENT: full ROM. ABSENT: calf tenderness, clubbing, pedal edema Neurological exam: PRESENT: alert, awake, CN II-XII grossly intact. ABSENT: motor sensory deficit Results Laboratory Results: 03/24/19 05:10 03/24/19 05:10 03/24/19 03/24/19 05:10 05:10 WBC 6.8 RBC 2.87 L Hgb 8.6 L Hct 25.8 L MCV 90 MCH 30.1 MCHC 33.5 RDW 15.0 H Plt Count 443 Seg Neutrophils % 78.6 H Lymphocytes % 10.5 L Monocytes % 9.7 Eosinophils % 0.4 Basophils % 0.8 Absolute Neutrophils 5.3 Absolute Lymphocytes 0.7 Absolute Monocytes 0.7 Absolute Eosinophils 0.0 Absolute Basophils 0.1 Sodium 145.0 Potassium 3.0 L* Chloride 102 Carbon Dioxide 34 H Anion Gap 9 BUN 14 Creatinine 0.65 Est GFR ( Amer) > 60 Est GFR (Non-Af Amer) > 60 Glucose 124 H Calcium 8.9 Magnesium 1.7 03/15/19 03/15/19 03/21/19 13:23 13:23 03:25 Creatine Kinase 62 CK-MB (CK-2) 2.61 Troponin I 0.014 NT-Pro-B Natriuret Pep 33713 H Impressions: Head CT 03/15/19 13:19 IMPRESSION: Limited study. Motion artifact. No acute findings. EVIDENCE OF ACUTE STROKE: NO. Chest CT 03/22/19 08:22 IMPRESSION: Extensive ground-glass infiltrates. Pulmonary edema versus infection. Significant bilateral pleural effusions. Atherosclerosis. There is a PICC on the right. Chest X-Ray 03/24/19 00:00 IMPRESSION: Improving pneumonia. Assessment and Plan - Diagnosis (1) Fluid overload Is this a current diagnosis for this admission?: Yes Plan: 03/24: He had significant improvement with aggressive diuresis. Repeat chest x- ray shows significant improvement of airspace disease with IV Lasix in 24 hrs. Echo pending. Plan to decrease Lasix tomorrow. (2) New onset atrial fibrillation Is this a current diagnosis for this admission?: Yes Plan: On elie aly. Able to contact patient's son, Rohith who was updated about patient's status and plan of care. CHADVASC of at least 1 (HTN) (2-possible CHF, echo still pending). Discussed anticoagulation and he says he would have to d iscuss this further with his sister/ANGELICA who is unreachable at the moment. 03/24: Discussed anticoagulation with patient's sister Jayleen. She says she is not able to contact Sarah (daughter/DPMIHAI) at the moment and will discuss this further with her and will call us back. (3) Acute hypoxemic respiratory failure Is this a current diagnosis for this admission?: Yes Plan: Initially intubated due to aspiration pneumonia and DT. He was intubated on 03/17. He was extubated on 03/20. Currently on BIPAP. CT chest today shows significant bilateral pleural effusions. 03/23: Weaned off BIPAP. Saturating well on 4 lpm via NC. (4) COPD (chronic obstructive pulmonary disease) Qualifiers: Emphysema type: unspecified Is this a current diagnosis for this admission?: Yes Plan: Continue breathing treatments. (5) Hyponatremia Is this a current diagnosis for this admission?: Yes Plan: Resolved. Received hypertonic saline. (6) Pleural effusion Is this a current diagnosis for this admission?: Yes Plan: Start IV Lasix. Will consult radiology for thoracentesis if there is no improvement with diuresis. 03/23: He diuresed well. Repeat CXR to reassess effusion. 03/24: Improved with aggressive diuresis. (7) Aspiration pneumonia Is this a current diagnosis for this admission?: Yes Plan: Rocephin switched to Zosyn. Sputum culture pending. Continue Zosyn until sputum culture is finalized. Plan to continue Zosyn with last anticipated day on 03/27. (8) Hypokalemia Is this a current diagnosis for this admission?: Yes Plan: Lasix-induced. Replace K. Will order for scheduled IV Potassium while on high dose Lasix. 03/24: Replace Potassium. Continue scheduled Potassium replacement. - Time Time Spent with patient: 25-34 minutes
--- NOTE | 2019-03-24 16:22 | EKG REPORT ---
SEVERITY:- ABNORMAL ECG - SINUS RHYTHM PROBABLE LEFT ATRIAL ABNORMALITY LOW VOLTAGE IN FRONTAL LEADS NONSPECIFIC T ABNORMALITIES, ANTERIOR LEADS PROLONGED QT INTERVAL : Confirmed by: Rose Crowley 24-Mar-2019 16:21:09
[2019-03-24 16:44] LABS: ANION GAP 12 (5-19); BLOOD UREA NITROGEN 13 mg/dL (7-20); CALCIUM 8.5 mg/dL (8.4-10.2); CARBON DIOXIDE 32 mmol/L (22-30); CHLORIDE 104 mmol/L (98-107); GLUCOSE 104 mg/dL (75-110); POTASSIUM 3.8 mmol/L (3.6-5.0); SODIUM 147.8 mmol/L (137-145)
[2019-03-24] MEDS: AMINO AC/PROTEIN HYDR/WHEY PRO 11 GM/45 ML PKT NG SCH (17:02)
[2019-03-25] MEDS: LEVALBUTEROL HCL NEB 1.25 MG/3 ML AMPUL NEB SCH ×3 (00:15→15:32)
[2019-03-25] MEDS: IPRATROPIUM BROMIDE 0.02% NEB 0.5 MG/2.5 ML AMPUL NEB SCH ×3 (00:15→15:32)
[2019-03-25] MEDS: PIPERACILLIN SODIUM/TAZOBACTAM 3.375 GM in NORMAL SALINE 100 ML IV SCH ×5 (00:19→23:55)
[2019-03-25] MEDS: FUROSEMIDE INJ/PF 40 MG/4 ML SDV IV SCH ×2 (05:16→10:39)
[2019-03-25] MEDS: HEPARIN SOD (PORCINE) 5,000 UNIT/ML 1 ML SYRINGE SUBCUT SCH ×3 (05:16→21:39)
[2019-03-25 06:10] LABS: ANION GAP 12 (5-19); BLOOD UREA NITROGEN 15 mg/dL (7-20); CARBON DIOXIDE 33 mmol/L (22-30); CHLORIDE 104 mmol/L (98-107); GLUCOSE 109 mg/dL (75-110); POTASSIUM 3.7 mmol/L (3.6-5.0); SODIUM 148.9 mmol/L (137-145)
[2019-03-25] MEDS: BUDESONIDE NEB 0.5 MG/2 ML AMPUL NEB SCH ×2 (08:08→20:08)
--- NOTE | 2019-03-25 08:43 | RADIOLOGY REPORT (SQ) ---
EXAM DESCRIPTION: CHEST SINGLE VIEW COMPLETED DATE/TIME: 03/25/2019 8:25 am REASON FOR STUDY: reassess congestion/infiltrates COMPARISON: 04/18/2019. EXAM PARAMETERS: NUMBER OF VIEWS: One view. TECHNIQUE: Single frontal radiographic view of the chest acquired. RADIATION DOSE: NA LIMITATIONS: None. FINDINGS: LUNGS AND PLEURA: Near-complete resolution of previously noted bilateral airspace type inf iltrates. Left pleural thickening or effusion. MEDIASTINUM AND HILAR STRUCTURES: No masses. Contour normal. HEART AND VASCULAR STRUCTURES: The heart is normal. Aortic atherosclerosis is seen. HARDWARE: None in the chest. OTHER: Right central venous line with tip overlying SVC. IMPRESSION: Near-complete resolution of bilateral airspace infiltrates. Left pleural thickening or effusion. TECHNICAL DOCUMENTATION: JOB ID: [id number] [employer]- All Rights Reserved Reading location - IP/workstation name: [email or web address]
[2019-03-25] MEDS: ASPIRIN 81 MG TABLET, CHEWABLE PO SCH (11:18)
[2019-03-25] MEDS: FOLIC ACID 1 MG TABLET NG SCH (11:18)
[2019-03-25] MEDS: LISINOPRIL 5 MG TABLET NG SCH (11:18)
[2019-03-25] MEDS: POTASSIUM CHLORIDE 20 MEQ PACKET NG SCH ×2 (11:18→18:36)
[2019-03-25] MEDS: MAGNESIUM OXIDE 400 MG TABLET PO SCH ×2 (11:18→18:36)
[2019-03-25] MEDS: PANTOPRAZOLE SODIUM 40 MG PACKET.DR NG SCH (11:19)
[2019-03-25] MEDS: THIAMINE HCL 100 MG TABLET NG SCH (11:19)
[2019-03-25] MEDS: DILTIAZEM HCL/D5W 125 MG/125 ML RTUINJ IV PRN (12:33)
--- NOTE | 2019-03-25 14:22 | PDOC PROGRESS REPORT ---
Subjective Progress Note for:: 03/25/19 Subjective:: Assumed care today. Chart and ICU course reviewed. This is a 63 yr old male who was admitted for acute encpehalopathy. He was found to have severe hyponatremia and was started on hypertonic saline. He went into acute respiratory failure deeemd to be from likely aspiration pneumonia and DTs and was intubated on 03/17. He was extubated on 03/20. 03/22: Patient was downgraded from ICU last night. This morning around 6 AM, patient went into AFib with RVR. Apparently, he was given 2 doses of IV Lopressor but he had persistent AFib in the 140s. Upon initial encounter, patient is still in AFib. He is slightly tachpyneic and has significant rales bilaterally with decreased breath sounds on the bases. He will be started on Cardizem drip and will be upgraded to IMCU. Chest x-ray yesterday appears to show worsening airspace disease and pleural effusions. Will pursue a chest CT. 2 PM: Patient reassessed. He is now in normal sinus rhythm on minimal Cardizem infusion (2.5). He appears to be breathing better and is saturating well on 4 lpm via NC. Chest CT shows significant pleural effusions bilaterally. He has been on Rocephin. Switch to Zosyn. Possible acute congestive heart failure. Start IV Lasix. Replace Potassium as needed. Will consult radiology if there is no improvement in pleural effusions with diuresis. Speech therapist has recommended keeping patient NPO over the next few days. 03/23: He remains on NSR on cardizem drip. He appears more conversant today and says he wants water but is not oriented. Weaned off BIPAP and he is now saturating well on nasal cannula. He has diuresed well overnight. Will repeat CXR today to reassess effusions. Able to contact patient's son, Rohith who was updated about patient's status and plan of care. Discussed anticoagulation and he says he would have to discuss this further with his sister/DPMIHAI who is unreac hable at the moment. 03/24: Currently on sinus rhythm on cardizem drip. He remains NPO until reasses sment by speech tomorrow. He had significant improvement with aggressive diuresis. Repeat chest x-ray shows significant improvement of airspace disease with IV Lasix in 24 hrs. 03/25: No acute event overnight. He continues to improve significantly. He is more awake and alert today but appears deconditioned. He is comfortable and is saturating well on nasal cannula. Repeat CXR shows near complete resolution of bilateral airspace disease and bilateral effusions. Apparently we don't have speech therapy services today and he will be re-evaluated by speech tomorrow. Until then, he will remain NPO and will continue IV medications. He is currently in sinus rhythm on minimal dose of cardizem infusion. Lasix has been decreased to 40 mg daily. May be decreased further or discontinued in the next 24-28 hrs. Anticipating he will need short term rehab or SNF placement. Reason For Visit: SEVERE HYPONATREMIA Physical Exam Vital Signs: Temp Pulse Resp BP Pulse Ox 97.8 F 88 19 153/76 H 99 03/25/19 12:00 03/25/19 12:00 03/25/19 12:00 03/25/19 12:00 03/25/19 12:00 Intake & Output 03/24/19 03/25/19 03/26/19 06:59 06:59 06:59 Intake Total 425 603 221 Output Total 3550 1999 1400 Balance -3125 -1397 -1179 Weight 119 lb 4.321 oz 114 lb 3.191 oz General appearance: PRESENT: no acute distress, well-developed, well-nourished Head exam: PRESENT: atraumatic, normocephalic Eye exam: PRESENT: conjunctiva pink, EOMI, PERRLA. ABSENT: scleral icterus Ear exam: PRESENT: normal external ear exam Mouth exam: PRESENT: moist, tongue midline Neck exam: ABSENT: carotid bruit, JVD, lymphadenopathy, thyromegaly Respiratory exam: PRESENT: rhonchi. ABSENT: rales, wheezes Cardiovascular exam: PRESENT: RRR. ABSENT: diastolic murmur, rubs, systolic murmur Pulses: PRESENT: normal dorsalis pedis pul GI/Abdominal exam: PRESENT: normal bowel sounds, soft. ABSENT: distended, guarding, mass, organolmegaly, rebound, tenderness Rectal exam: PRESENT: deferred Neurological exam: PRESENT: alert, awake, CN II-XII grossly intact. ABSENT: motor sensory deficit Results Laboratory Results: 03/24/19 05:10 03/25/19 05:07 03/24/19 03/25/19 16:18 05:07 Sodium 147.8 H 148.9 H Potassium 3.8 3.7 Chloride 104 104 Carbon Dioxide 32 H 33 H Anion Gap 12 12 BUN 13 15 Creatinine 0.57 0.79 Est GFR ( Amer) > 60 > 60 Est GFR (Non-Af Amer) > 60 > 60 Glucose 104 109 Calcium 8.5 9.0 03/15/19 03/15/19 03/21/19 13:23 13:23 03:25 Creatine Kinase 62 CK-MB (CK-2) 2.61 Troponin I 0.014 NT-Pro-B Natriuret Pep 41253 H Impressions: Head CT 03/15/19 13:19 IMPRESSION: Limited study. Motion artifact. No acute findings. EVIDENCE OF ACUTE STROKE: NO. Chest CT 03/22/19 08:22 IMPRESSION: Extensive ground-glass infiltrates. Pulmonary edema versus infection. Significant bilateral pleural effusions. Atherosclerosis. There is a PICC on the right. Chest X-Ray 03/25/19 07:00 IMPRESSION: Near-complete resolution of bilateral airspace infiltrates. Left pleural thickening or effusion. Assessment and Plan - Diagnosis (1) Fluid overload Is this a current diagnosis for this admission?: Yes Plan: 03/24: He had significant improvement with aggressive diuresis. Repeat chest x- ray shows significant improvement of airspace disease with IV Lasix in 24 hrs. Echo pending. 03/25: He continues to improve significantly. He is more awake and alert today but appears deconditioned. He is comfortable and is saturating well on nasal cannula. Repeat CXR shows complete resolution of bilateral airspace disease and bilateral effusions. Apparently we don't have speech therapy services today and he will be re-evaluated by speech tomorrow. Until then, he will remain NPO and will continue IV medications. He is currently in sinus rhythm on minimal dose of cardizem infusion. Lasix has been decreased to 40 mg daily. May be decreased further or discontinued in the next 24-28 hrs. He is also on shceduled IV KCl 20 meqs daily due to hypokalemic episodes while being diuresed. (2) New onset atrial fibrillation Is this a current diagnosis for this admission?: Yes Plan: On cardizem drip. Able to contact patient's son, Rohith who was updated about patient's status and plan of care. CHADVASC of at least 1 (HTN) (2-possible CHF, echo still pending). Discussed anticoagulation and he says he would have to discuss this further with his sister/DPOA who is unreachable at the moment. 03/24: Discussed anticoagulation with patient's sister Jayleen. She says she is not able to contact Sarah (daughter/DPOA) at the moment and will discuss this further with her and will call us back. 03/25: DPMIHAI still unreachable at the moment and has not called back yet about anticoagulation. Plan to switch to oral cardizem or lopressor after speech evaluation as he remains NPO. (3) Acute hypoxemic respiratory failure Is this a current diagnosis for this admission?: Yes Plan: Initially intubated due to aspiration pneumonia and DT. He was intubated on 03/17. He was extubated on 03/20. Currently on BIPAP. CT chest today shows significant bilateral pleural effusions. 03/23: Weaned off BIPAP. Saturating well on 4 lpm via NC. (4) COPD (chronic obstructive pulmonary disease) Qualifiers: Emphysema type: unspecified Is this a current diagnosis for this admission?: Yes Plan: Continue breathing treatments. (5) Hyponatremia Is this a current diagnosis for this admission?: Yes Plan: Resolved. Received hypertonic saline. (6) Pleural effusion Is this a current diagnosis for this admission?: Yes Plan: Start IV Lasix. Will consult radiology for thoracentesis if there is no improvement with diuresis. 03/23: He diuresed well. Repeat CXR to reassess effusion. 03/24: Improved with aggressive diuresis. 03/25: Resolving. (7) Aspiration pneumonia Is this a current diagnosis for this admission?: Yes Plan: Rocephin switched to Zosyn. Sputum culture pending. Continue Zosyn until sputum culture is finalized. Plan to continue Zosyn with last anticipated day on 03/27. (8) Hypokalemia Is this a current diagnosis for this admission?: Yes Plan: Lasix-induced. Replace K. Will order for scheduled IV Potassium while on high dose Lasix. 03/24: Replace Potassium. Continue scheduled Potassium replacement. 03/25: Resolved. - Time Time Spent with patient: 25-34 minutes
[2019-03-25] MEDS: AMINO AC/PROTEIN HYDR/WHEY PRO 11 GM/45 ML PKT NG SCH (18:36)
[2019-03-25] MEDS: LEVALBUTEROL HCL NEB 0.63 MG/3 ML AMPUL NEB PRN (20:08)
[2019-03-25] MEDS: POTASSI CL 20 MEQ/50 ML RIDER 20 MEQ/50 ML RTUPB IV SCH (21:40)
[2019-03-26] MEDS: IPRATROPIUM BROMIDE 0.02% NEB 0.5 MG/2.5 ML AMPUL NEB SCH ×3 (00:29→15:31)
[2019-03-26] MEDS: LEVALBUTEROL HCL NEB 1.25 MG/3 ML AMPUL NEB SCH ×3 (00:29→15:31)
[2019-03-26] MEDS: HEPARIN SOD (PORCINE) 5,000 UNIT/ML 1 ML SYRINGE SUBCUT SCH ×3 (05:40→21:34)
[2019-03-26] MEDS: PIPERACILLIN SODIUM/TAZOBACTAM 3.375 GM in NORMAL SALINE 100 ML IV SCH (05:40)
[2019-03-26 06:21] LABS: ARTERIAL BLOOD BASE EXCESS 12.8 mmol/L; ARTERIAL BLOOD H2CO3 1.34 mmol/L (1.05-1.35); ARTERIAL BLOOD HCO3 36.8 mmol/L (20-24); ARTERIAL BLOOD O2 SATURATION 91.6 % (94-98); ARTERIAL BLOOD PCO2 44.6 mmHg (35-45); ARTERIAL BLOOD PH 7.53 (7.35-7.45); ARTERIAL BLOOD PO2 55.1 mmHg (80-100); ARTERIAL BLOOD TOTAL CO2 38.1 mmol/L (23-27)
[2019-03-26 06:25] LABS: ARTERIAL BLOOD FIO2 30%
[2019-03-26 06:42] LABS: ANION GAP 12 (5-19); BLOOD UREA NITROGEN 22 mg/dL (7-20); CALCIUM 9.2 mg/dL (8.4-10.2); CARBON DIOXIDE 35 mmol/L (22-30); CHLORIDE 107 mmol/L (98-107); GLUCOSE 109 mg/dL (75-110); POTASSIUM 3.4 mmol/L (3.6-5.0); SODIUM 153.7 mmol/L (137-145)
[2019-03-26] MEDS: BUDESONIDE NEB 0.5 MG/2 ML AMPUL NEB SCH ×2 (07:39→20:31)
[2019-03-26] MEDS: DILTIAZEM HCL/D5W 125 MG/125 ML RTUINJ IV PRN ×2 (08:11→20:21)
[2019-03-26] MEDS ORDERED: VANCOMYCIN HCL 0 MG in DEXTROSE 5%-WATER 250 ML IV NR (10:15)
[2019-03-26] MEDS: ASPIRIN 81 MG TABLET, CHEWABLE PO SCH (10:51)
[2019-03-26] MEDS: MAGNESIUM OXIDE 400 MG TABLET PO SCH ×2 (10:52→17:27)
[2019-03-26] MEDS: LISINOPRIL 5 MG TABLET NG SCH (10:52)
[2019-03-26] MEDS: FOLIC ACID 1 MG TABLET NG SCH (10:52)
[2019-03-26] MEDS: POTASSIUM CHLORIDE 20 MEQ PACKET NG SCH ×2 (10:52→17:27)
[2019-03-26] MEDS: PANTOPRAZOLE SODIUM 40 MG PACKET.DR NG SCH (10:52)
[2019-03-26] MEDS: THIAMINE HCL 100 MG TABLET NG SCH (10:53)
--- NOTE | 2019-03-26 10:53 | RADIOLOGY REPORT (SQ) ---
EXAM DESCRIPTION: CTA HEAD; CTA NECK; CT HEAD WITHOUT COMPLETED DATE/TIME: 03/26/2019 10:31 am REASON FOR STUDY: r/o cva; R/O CVA COMPARISON: CT brain, 03/15/2019 TECHNIQUE: Axial images acquired through the neck and brain without and with intravenous contrast. Images reviewed with bone, brain and subdural windows. Additional sagittal and coronal reconstructio ns were generated. Images stored on PACS. CTA neck and brain was performed. Thin section postcontrast CT images were reviewed with maximum inte nsity projected images of the [place] in multiple orientations. All CT scanners at this facility use dose modulation, iterative reconstruction, and/or weight based d osing when appropriate to reduce radiation dose to as low as reasonably achievable (ALARA). [facility]: Dose Right [facility]: CareDose [facility]: Dose Right [facility]: Teradose 4D [facility]: [employer] CONTRAST TYPE AND DOSE: contrast/concentration: Isovue 350.00 mg/ml; Total Contrast Delivered: 80.0 ml; Total Saline Delivered: 75.0 ml RENAL FUNCTION: GFR > 60. RADIATION DOSE: CT Rad equipment meets quality standard of care and radiation dose reduction techniq ues were employed. CTDIvol: 48.5 mGy. DLP: 854 mGy-cm.. LIMITATIONS: None. FINDINGS: VENTRICLES: Normal size and contour. CEREBRUM: No masses. No hemorrhage. No midline shift. No evidence for acute infarction. Few scatte red areas of low density in the white matter most likely chronic small vessel ischemic changes. CEREBELLUM: No masses. No hemorrhage. No alteration of density. No evidence for acute infarction. No enhancing lesions. EXTRA-AXIAL SPACES: No fluid collections. No enhancing lesions. ORBITS AND GLOBE: No intra- or extraconal masses. Normal contour of globe without masses. CALVARIUM: No fracture. PARANASAL SINUSES: Right maxillary sinus air-fluid level, similar to prior examination. SOFT TISSUES: No mass or hematoma. OTHER: Biapical emphysema. CTA NECK: There is calcific atherosclerosis of the aortic arch without significant stenosis of the arch vessel origins. There is calcific atherosclerosis of the bilateral internal carotid artery origins with approximately 50% stenosis at the origin of the right internal carotid artery and greater than 70% stenosis of the origin of the left internal carotid artery. The bilateral vertebral arteries are patent to the skullbase, there is a left dominant vertebral circ ulation with a very diminutive V4 segment of the right vertebral artery. CTA COW: [place]: There is extensive calcific atherosclerosis of the cavernous and clinoid portions o f the internal carotid arteries without high-grade stenosis. The anterior, middle, posterior cerebra l arteries are all patent. No evidence of aneurysm or focal stenosis. POSTERIOR CIRCULATION: The distal vertebral arteries are patent as is the basilar artery. No aneurysm . OTHER: No other significant finding. IMPRESSION: 1. No acute intracranial pathology. No noncontrast CT evidence of acute stroke or hemo rrhage. Small vessel white matter disease. 2. No evidence of intracranial occlusion, stenosis, or aneurysm. 3. There is calcific atherosclerosis of the bilateral internal carotid artery origins with approxima tely 50% stenosis at the origin of the right internal carotid artery and greater than 70% stenosis of the origin of the left internal carotid artery. EVIDENCE OF ACUTE STROKE: NO. TECHNICAL DOCUMENTATION: JOB ID: [id number] Quality ID # [id number]: Final reports with documentation of one or more dose reduction techniques (e.g., Au tomated exposure control, adjustment of the mA and/or kV according to patient size, use of iterative reconstruction technique) 2010 [employer]- All Rights Reserved Reading location - IP/workstation name: [email or web address]
--- NOTE | 2019-03-26 10:53 | RADIOLOGY REPORT (SQ) ---
EXAM DESCRIPTION: CTA HEAD; CTA NECK; CT HEAD WITHOUT COMPLETED DATE/TIME: 03/26/2019 10:31 am REASON FOR STUDY: r/o cva; R/O CVA COMPARISON: CT brain, 03/15/2019 TECHNIQUE: Axial images acquired through the neck and brain without and with intravenous contrast. Images reviewed with bone, brain and subdural windows. Additional sagittal and coronal reconstructio ns were generated. Images stored on PACS. CTA neck and brain was performed. Thin section postcontrast CT images were reviewed with maximum inte nsity projected images of the [place] in multiple orientations. All CT scanners at this facility use dose modulation, iterative reconstruction, and/or weight based d osing when appropriate to reduce radiation dose to as low as reasonably achievable (ALARA). [facility]: Dose Right [facility]: CareDose [facility]: Dose Right [facility]: Teradose 4D [facility]: [employer] CONTRAST TYPE AND DOSE: contrast/concentration: Isovue 350.00 mg/ml; Total Contrast Delivered: 80.0 ml; Total Saline Delivered: 75.0 ml RENAL FUNCTION: GFR > 60. RADIATION DOSE: CT Rad equipment meets quality standard of care and radiation dose reduction techniq ues were employed. CTDIvol: 48.5 mGy. DLP: 854 mGy-cm.. LIMITATIONS: None. FINDINGS: VENTRICLES: Normal size and contour. CEREBRUM: No masses. No hemorrhage. No midline shift. No evidence for acute infarction. Few scatte red areas of low density in the white matter most likely chronic small vessel ischemic changes. CEREBELLUM: No masses. No hemorrhage. No alteration of density. No evidence for acute infarction. No enhancing lesions. EXTRA-AXIAL SPACES: No fluid collections. No enhancing lesions. ORBITS AND GLOBE: No intra- or extraconal masses. Normal contour of globe without masses. CALVARIUM: No fracture. PARANASAL SINUSES: Right maxillary sinus air-fluid level, similar to prior examination. SOFT TISSUES: No mass or hematoma. OTHER: Biapical emphysema. CTA NECK: There is calcific atherosclerosis of the aortic arch without significant stenosis of the arch vessel origins. There is calcific atherosclerosis of the bilateral internal carotid artery origins with approximately 50% stenosis at the origin of the right internal carotid artery and greater than 70% stenosis of the origin of the left internal carotid artery. The bilateral vertebral arteries are patent to the skullbase, there is a left dominant vertebral circ ulation with a very diminutive V4 segment of the right vertebral artery. CTA COW: [place]: There is extensive calcific atherosclerosis of the cavernous and clinoid portions o f the internal carotid arteries without high-grade stenosis. The anterior, middle, posterior cerebra l arteries are all patent. No evidence of aneurysm or focal stenosis. POSTERIOR CIRCULATION: The distal vertebral arteries are patent as is the basilar artery. No aneurysm . OTHER: No other significant finding. IMPRESSION: 1. No acute intracranial pathology. No noncontrast CT evidence of acute stroke or hemo rrhage. Small vessel white matter disease. 2. No evidence of intracranial occlusion, stenosis, or aneurysm. 3. There is calcific atherosclerosis of the bilateral internal carotid artery origins with approxima tely 50% stenosis at the origin of the right internal carotid artery and greater than 70% stenosis of the origin of the left internal carotid artery. EVIDENCE OF ACUTE STROKE: NO. TECHNICAL DOCUMENTATION: JOB ID: [id number] Quality ID # [id number]: Final reports with documentation of one or more dose reduction techniques (e.g., Au tomated exposure control, adjustment of the mA and/or kV according to patient size, use of iterative reconstruction technique) 2010 [employer]- All Rights Reserved Reading location - IP/workstation name: [email or web address]
--- NOTE | 2019-03-26 10:53 | RADIOLOGY REPORT (SQ) ---
EXAM DESCRIPTION: CTA HEAD; CTA NECK; CT HEAD WITHOUT COMPLETED DATE/TIME: 03/26/2019 10:31 am REASON FOR STUDY: r/o cva; R/O CVA COMPARISON: CT brain, 03/15/2019 TECHNIQUE: Axial images acquired through the neck and brain without and with intravenous contrast. Images reviewed with bone, brain and subdural windows. Additional sagittal and coronal reconstructio ns were generated. Images stored on PACS. CTA neck and brain was performed. Thin section postcontrast CT images were reviewed with maximum inte nsity projected images of the [place] in multiple orientations. All CT scanners at this facility use dose modulation, iterative reconstruction, and/or weight based d osing when appropriate to reduce radiation dose to as low as reasonably achievable (ALARA). [facility]: Dose Right [facility]: CareDose [facility]: Dose Right [facility]: Teradose 4D [facility]: [employer] CONTRAST TYPE AND DOSE: contrast/concentration: Isovue 350.00 mg/ml; Total Contrast Delivered: 80.0 ml; Total Saline Delivered: 75.0 ml RENAL FUNCTION: GFR > 60. RADIATION DOSE: CT Rad equipment meets quality standard of care and radiation dose reduction techniq ues were employed. CTDIvol: 48.5 mGy. DLP: 854 mGy-cm.. LIMITATIONS: None. FINDINGS: VENTRICLES: Normal size and contour. CEREBRUM: No masses. No hemorrhage. No midline shift. No evidence for acute infarction. Few scatte red areas of low density in the white matter most likely chronic small vessel ischemic changes. CEREBELLUM: No masses. No hemorrhage. No alteration of density. No evidence for acute infarction. No enhancing lesions. EXTRA-AXIAL SPACES: No fluid collections. No enhancing lesions. ORBITS AND GLOBE: No intra- or extraconal masses. Normal contour of globe without masses. CALVARIUM: No fracture. PARANASAL SINUSES: Right maxillary sinus air-fluid level, similar to prior examination. SOFT TISSUES: No mass or hematoma. OTHER: Biapical emphysema. CTA NECK: There is calcific atherosclerosis of the aortic arch without significant stenosis of the arch vessel origins. There is calcific atherosclerosis of the bilateral internal carotid artery origins with approximately 50% stenosis at the origin of the right internal carotid artery and greater than 70% stenosis of the origin of the left internal carotid artery. The bilateral vertebral arteries are patent to the skullbase, there is a left dominant vertebral circ ulation with a very diminutive V4 segment of the right vertebral artery. CTA COW: [place]: There is extensive calcific atherosclerosis of the cavernous and clinoid portions o f the internal carotid arteries without high-grade stenosis. The anterior, middle, posterior cerebra l arteries are all patent. No evidence of aneurysm or focal stenosis. POSTERIOR CIRCULATION: The distal vertebral arteries are patent as is the basilar artery. No aneurysm . OTHER: No other significant finding. IMPRESSION: 1. No acute intracranial pathology. No noncontrast CT evidence of acute stroke or hemo rrhage. Small vessel white matter disease. 2. No evidence of intracranial occlusion, stenosis, or aneurysm. 3. There is calcific atherosclerosis of the bilateral internal carotid artery origins with approxima tely 50% stenosis at the origin of the right internal carotid artery and greater than 70% stenosis of the origin of the left internal carotid artery. EVIDENCE OF ACUTE STROKE: NO. TECHNICAL DOCUMENTATION: JOB ID: [id number] Quality ID # [id number]: Final reports with documentation of one or more dose reduction techniques (e.g., Au tomated exposure control, adjustment of the mA and/or kV according to patient size, use of iterative reconstruction technique) 2010 [employer]- All Rights Reserved Reading location - IP/workstation name: [email or web address]
[2019-03-26] MEDS ORDERED: VANCOMYCIN HCL 1,000 MG in DEXTROSE 5%-WATER 250 ML IV ONE (11:00)
[2019-03-26] MEDS: FUROSEMIDE INJ/PF 40 MG/4 ML SDV IV SCH (11:45)
[2019-03-26] MEDS: HYDRALAZINE HCL INJ/PF 20 MG/1 ML SDV IV PRN (13:04)
--- NOTE | 2019-03-26 16:10 | PDOC PROGRESS REPORT ---
Subjective Progress Note for:: 03/26/19 Subjective:: 63 y.o. M admitted to the hospitalist service for acute encpehalopathy. He was found to have severe hyponatremia (Na 112) and was started on hypertonic saline. He went into acute respiratory failure deeemd to be from likely aspiration pneumonia and DTs and was intubated on 03/17. He was extubated on 03/20. The patient does not have a history of AFIB, went into AFIB w/RVR and started on a cardizem gtt. The patient was seen this morning on rounds. He is resting in bed on BiPAP. Eyes are open, minimal response to painful stimuli. Patient does not answer questions or follow commands. PERRLA. According to nursing staff, this is an acute change in mental status since 0 this morning. Patient has not been on anticoagulation for AFIB, only receiving SQ hepain for DVT ppx. Sputum culture results are (+) for MRSA. Mental status due to infection vs. possible stroke. Head CT, CTA and neck CTA are relatively benign. There is moderate stenosis of the bilateral carotid arteries, no other significant abnormalities. The source of the patient's encephalopathy is likely his untreated MRSA PNA. Plan to discontinue IV Zosyn and initiate IV vancomycin today Reason For Visit: SEVERE HYPONATREMIA Physical Exam Vital Signs: Temp Pulse Resp BP Pulse Ox 98.5 F 92 26 H 150/68 H 97 03/26/19 08:05 03/26/19 08:05 03/26/19 08:05 03/26/19 08:05 03/26/19 08:05 Intake & Output 03/25/19 03/26/19 03/27/19 06:59 06:59 06:59 Intake Total 603 567 79 Output Total 19990 Balance -1397 -1183 79 Weight 51.8 kg 52.7 kg General appearance: PRESENT: no acute distress, thin Eye exam: PRESENT: conjunctiva pink, PERRLA Mouth exam: PRESENT: moist Teeth exam: PRESENT: poor dentation Respiratory exam: PRESENT: clear to auscultation pierre, symmetrical, tachypnea - 28-28 BPM Cardiovascular exam: PRESENT: +S1, +S2 Pulses: PRESENT: normal radial pulses, +1 pedal pulses bilateral GI/Abdominal exam: PRESENT: hypoactive bowel sounds, soft. ABSENT: distended, tenderness Rectal exam: PRESENT: deferred Extremities exam: PRESENT: other - ABLE TO LOCALIZE PAIN BUT DOES NOT WITHDRAW (IN ALL 4 EXTREMITIES). ABSENT: full ROM Musculoskeletal exam: ABSENT: ambulatory, full ROM Neurological exam: PRESENT: awake, other - NONVERBAL. DOES NOT TRACK. DOES NOT FOLLOW COMMANDS. ABSENT: alert, oriented to person, oriented to place, oriented to time, oriented to situation Psychiatric exam: PRESENT: other - OBTUNDED. DIFFICULT TO AROUSE. EYES OPEN BUT MINIMAL RESPONSE TO PAINFUL STIMULI. Skin exam: PRESENT: dry, intact Results Laboratory Results: 03/24/19 05:10 03/26/19 05:55 03/26/19 03/26/19 05:55 06:12 Carbonic Acid 1.34 HCO3/H2CO3 Ratio 27:1 ABG pH 7.53 H ABG pCO2 44.6 ABG pO2 55.1 L ABG HCO3 36.8 H ABG O2 Saturation 91.6 L ABG Base Excess 12.8 FiO2 30% Sodium 153.7 H Potassium 3.4 L Chloride 107 Carbon Dioxide 35 H Anion Gap 12 BUN 22 H Creatinine 1.05 Est GFR ( Amer) > 60 Est GFR (Non-Af Amer) > 60 Glucose 109 Calcium 9.2 03/24/19 13:35 Tracheal Aspirate Gram Stain - Final 03/24/19 13:35 Tracheal Aspirate Sputum Culture - Final Mrsa (Meth Resis Staph Aureus) Normal Erica Absent 03/15/19 03/15/19 03/21/19 13:23 13:23 03:25 Creatine Kinase 62 CK-MB (CK-2) 2.61 Troponin I 0.014 NT-Pro-B Natriuret Pep 48152 H Impressions: Head CT 03/15/19 13:19 IMPRESSION: Limited study. Motion artifact. No acute findings. EVIDENCE OF ACUTE STROKE: NO. Chest CT 03/22/19 08:22 IMPRESSION: Extensive ground-glass infiltrates. Pulmonary edema versus infection. Significant bilateral pleural effusions. Atherosclerosis. There is a PICC on the right. Chest X-Ray 03/25/19 07:00 IMPRESSION: Near-complete resolution of bilateral airspace infiltrates. Left pleural thickening or effusion. Status: Imported from PACS Assessment and Plan - Diagnosis (1) Encephalopathy Is this a current diagnosis for this admission?: Yes Plan: Worse today, patient minimally responsive since [address], CTA, neck CTA negative for acute stroke, only demonstrates moderate carotid stenosis, no evidence of CVA Altered mental status likely due to untreated MRSA infection Outside of the window for ETOH related seizures Plan to initiate IV vancomycin If mental status does not improve, consider EEG to evaluate for subclinical seizures (2) Acute hypoxemic respiratory failure Is this a current diagnosis for this admission?: Yes Plan: Initially intubated due to aspiration pneumonia EtOH withdrawal/DT Intubated on March 17, extubated on March [address] chest demonstrates significant bilateral pleural effusions CXR today shows complete resolution of bilateral airspace disease and bilateral effusions Continue scheduled and PRN nebulizer treatments (3) Aspiration pneumonia Is this a current diagnosis for this admission?: Yes Plan: Previously believed to be a gram(-) source and treated with Zosyn Clinically the patient appears worse, increasing oxygen requirements, tachypnea, worsening encephalopathy Notified by microbiology today that patient's sputum tested positive for MRSA Discontinued IV Zosyn initiated IV vancomycin (4) Hypernatremia Is this a current diagnosis for this admission?: Yes Plan: Secondary to dehydration and overcorrection of hyponatremia Previously on hypertonic saline for HYPOnatremia (Na 112) Currently on Normal Saline IVF, will switch to D51/2 NS (5) COPD (chronic obstructive pulmonary disease) Qualifiers: Emphysema type: unspecified Is this a current diagnosis for this admission?: Yes Plan: Requiring BiPAP CXR shows complete resolution of bilateral airspace disease and bilateral effusions Scheduled and as needed Xopenex (avoid DuoNeb's due to history of AFIB w/RVR) Scheduled Atrovent (6) Hypokalemia Is this a current diagnosis for this admission?: Yes Plan: RESOLVED Lasix-induced. Potassium replaced (7) Hyponatremia Is this a current diagnosis for this admission?: Yes Plan: Resolved with hypertonic saline over the course of 7 days Gradual increase in sodium levels (8) New onset atrial fibrillation Is this a current diagnosis for this admission?: Yes Plan: No PMH of atrial fibrillation Currently on Cardizem gtt. unable to transition to p.o. medication due to worsening encephalopathy CHADVASC of at least 1 (HTN) (2 possible CHF, echocardiogram is still pending) Once echocardiogram is resulted, will discuss anticoagulation with family. (9) Pleural effusion Is this a current diagnosis for this admission?: Yes Plan: Resolved Previously seen on CXR Resolved with IV diuresis - Time Time Spent with patient: 25-34 minutes Medications reviewed and adjusted accordingly: Yes Anticipated discharge: SNF Within: Other - WHEN MEDICALLY STABLE - Inpatient Certification Based on my medical assessment, after consideration of the patient's comorbidities, presenting symptoms, or acuity I expect that the services needed warrant INPATIENT care.: Yes I certify that my determination is in accordance with my understanding of Medicare's requirements for reasonable and necessary INPATIENT services [42 CFR 412.3e].: Yes Medical Necessity: Need For Continuous Telemetry Monitoring, Need for IV Antibiotics, Risk of Complication if Not Cared For in Hospital
[2019-03-26] MEDS: AMINO AC/PROTEIN HYDR/WHEY PRO 11 GM/45 ML PKT NG SCH (17:27)
--- NOTE | 2019-03-26 20:59 | XCELERA REPORT ---
[address] [address] Transthoracic Echocardiogram Report Name: RAPHAEL BROWN Age: 63 yrs Gender: Male : 1955 Patient Status: Inpatient Patient Location: [address] [place], [place] [address] Study Date: 03/26/2019 08:43 AM Height: 60 in Weight: 119 lb BSA: 1.5 m2 Procedure: A two-dimensional transthoracic echocardiogram with color flow and Doppler was performed. Study Quality: Poor. The study was technically limited with all images being suboptimal in quality. Images were not obtained from all of the standard acoustic windows due to the limited scope of the study. Reason For Study: CHF elevated BNP History: CHF / ELEVATED BNP. Ordering Physician: EDWIGE JUNG Performed By: Olena Garcia Interpretation Summary Images were not obtained from all of the standard acoustic windows due to the limited scope of the study. The left ventricle is normal in size. No True apical 2 chamber views obtained.Hence cannot comment on the apical anterior , the basal anterior, the basal inferior and apical inferior lopes.The mid anterior , the mid inferior and the rest of the LV lopes contract normally. .Normal LVEF is normal and is greater than 65% in the limited views. There is normal left ventricular wall thickness. Doppler measurements suggest impaired left ventricular relaxation, which is associated with grade I/IV or mild diastolic dysfunction There is no thrombus. There is no ventricular septal defect visualized. The right ventricle is not well visualized secondary to technical limitations The left atrial size is normal. The interatrial septum is intact with no evidence for an atrial septal defect. There is no evidence of mitral valve prolapse. There is no mitral valve stenosis. There is no mitral regurgitation noted. There is no aortic valve stenosis There is no LVOT obstruction. No aortic regurgitation is present. There is no tricuspid stenosis. There is a trace amount of tricuspid regurgitation There is mild pulmonary hypertension by echo rvsp IS 30 TO 35 MM OF hG , WITH ra MEAN OF 5 TO 10 The pulmonic valve is not well visualized. The aortic root is normal size. There is no pericardial effusion. MMode/2D Measurements & Calculations IVSd: 0.67 cm LVIDd: 4.6 cm FS: 37.1 % Ao root diam: 3.2 cm LVIDs: 2.9 cm EDV(Teich): 95.6 ml Ao root area: 8.2 cm2 LVPWd: 0.84 cm ESV(Teich): 31.5 ml EF(Teich): 67.1 % Doppler Measurements & Calculations MV E max miguel a: MV dec slope: Ao V2 max: LV V1 max P.4 cm/sec 440.0 cm/sec2 124.3 cm/sec 4.8 mmHg MV A max miguel a: MV dec time: 0.17 secAo max PG: LV V1 max: 106.5 cm/sec 6.2 mmHg 110.0 cm/sec MV E/A: 0.72 PA V2 max: TR max miguel a: 111.2 cm/sec 247.4 cm/sec PA max P.9 mmHg TR max P.5 mmHg Left Ventricle The left ventricle is normal in size. There is normal left ventricular wall thickness. No True apical 2 chamber views obtained.Hence cannot comment on the apical anterior , the basal anterior, the basal inferior and apical inferior lopes.The mid anterior , the mid inferior and the rest of the LV lopes contract normally. .Normal LVEF is normal and is greater than 65% in the limited views. Doppler measurements suggest impaired left ventricular relaxation, which is associated with grade I/IV or mild diastolic dysfunction. There is no thrombus. There is no ventricular septal defect visualized. Right Ventricle The right ventricle is not well visualized secondary to technical limitations. Atria The right atrium is normal. The left atrial size is normal. The interatrial septum is intact with no evidence for an atrial septal defect. There is no Doppler evidence for an interatrial shunt. Mitral Valve There is no evidence of mitral valve prolapse. There is no vegetation seen on the mitral valve. There is no mitral valve stenosis. There is no mitral regurgitation noted. Aortic Valve There is no aortic valvular vegetation. There is no aortic valve stenosis. There is no LVOT obstruction. No aortic regurgitation is present. Tricuspid Valve There is no tricuspid stenosis. There is a trace amount of tricuspid regurgitation. There is mild pulmonary hypertension by echo. rvsp IS 30 TO 35 MM OF hG , WITH ra MEAN OF 5 TO 10. Pulmonic Valve The pulmonic valve is not well visualized. Great Vessels The aortic root is normal size. The inferior vena cava appeared normal and decreased > 50% with respiration (RAP 5-10 mmHg). Effusions There is no pericardial effusion. : EDWIGE JUNG > Kiki Mauricio
[2019-03-26] MEDS ORDERED: VANCOMYCIN HCL 500 MG in DEXTROSE 5%-WATER 100 ML IV SCH (22:00)
[2019-03-27] MEDS: IPRATROPIUM BROMIDE 0.02% NEB 0.5 MG/2.5 ML AMPUL NEB SCH ×4 (00:49→21:09)
[2019-03-27] MEDS: LEVALBUTEROL HCL NEB 1.25 MG/3 ML AMPUL NEB SCH ×4 (00:49→21:09)
[2019-03-27] MEDS: HEPARIN SOD (PORCINE) 5,000 UNIT/ML 1 ML SYRINGE SUBCUT SCH ×3 (05:28→22:12)
[2019-03-27 06:16] LABS: HEMATOCRIT 30.5 % (37.9-51.0); HEMOGLOBIN 9.5 g/dL (13.5-17.0); MEAN CORPUSCULAR HEMOGLOBIN 28.6 pg (27.0-33.4); MEAN CORPUSCULAR HGB CONC 31.3 g/dL (32.0-36.0); MEAN CORPUSCULAR VOLUME 92 fl (80-97); PLATELET COUNT 602 10^3/uL (150-450); RED BLOOD COUNT 3.33 10^6/uL (4.35-5.55); WHITE BLOOD COUNT 15.5 10^3/uL (4.0-10.5)
[2019-03-27 06:20] LABS: ALANINE AMINOTRANSFERASE 20 U/L (21-72); ALBUMIN 3.1 g/dL (3.5-5.0); ALKALINE PHOSPHATASE 102 U/L (38-126); ANION GAP 9 (5-19); ASPARTATE AMINO TRANSFERASE 19 U/L (17-59); BILIRUBIN,DIRECT 0.3 mg/dL (0.0-0.4); BILIRUBIN,TOTAL 0.3 mg/dL (0.2-1.3); BLOOD UREA NITROGEN 31 mg/dL (7-20); CALCIUM 9.4 mg/dL (8.4-10.2); CARBON DIOXIDE 36 mmol/L (22-30); CHLORIDE 108 mmol/L (98-107); GLUCOSE 127 mg/dL (75-110); PHOSPHORUS 5.1 mg/dL (2.5-4.5); SODIUM 153.3 mmol/L (137-145); TOTAL PROTEIN 6.7 g/dL (6.3-8.2)
[2019-03-27 06:27] LABS: POTASSIUM 2.7 mmol/L (3.6-5.0)
[2019-03-27] MEDS: POTASSIUM CHLORIDE 20 MEQ/50 ML RTU IV SCH ×5 (06:54→20:41)
[2019-03-27] MEDS: BUDESONIDE NEB 0.5 MG/2 ML AMPUL NEB SCH ×2 (07:40→21:09)
[2019-03-27] MEDS ORDERED: DEXTROSE 5%-1/2 NORMAL SALINE 1,000 ML IV PRN ×2 (08:43→16:40)
[2019-03-27] MEDS: DILTIAZEM HCL/D5W 125 MG/125 ML RTUINJ IV PRN (09:12)
[2019-03-27] MEDS ORDERED: PHARMACY COMMUNICATION ORDER MC NR ×2 (09:15→12:15)
[2019-03-27] MEDS ORDERED: RINGERS SOLUTION,LACTATED 1,000 ML IV ONE (09:30)
[2019-03-27] MEDS ORDERED: PROPOFOL 1,000 MG/100 ML INFUS..BTL IV ONE (11:43)
--- NOTE | 2019-03-27 12:16 | RADIOLOGY REPORT (SQ) ---
EXAM DESCRIPTION: CHEST SINGLE VIEW COMPLETED DATE/TIME: 03/27/2019 11:56 am REASON FOR STUDY: RESP FAILURE COMPARISON: 03/25/2019 EXAM PARAMETERS: NUMBER OF VIEWS: One view TECHNIQUE: Single frontal radiograph of the chest. RADIATION DOSE: N/A LIMITATIONS: None. FINDINGS: TEMPORARY SUPPORT DEVICES:ETT in expected location. NG tube courses below the aaron-diaphr agm in to the stomach. Central venous access catheter tip is in expected location. LUNGS AND PLEURA: Vague perihilar parenchymal opacities. No effusions. No effusions. No masses. No pneumothorax. MEDIASTINUM AND HILAR STRUCTURES: No masses. Contour normal. HEART AND VASCULAR STRUCTURES: Heart normal in size. normal vascularity. Aorta normal for age. BONES: No acute findings. OTHER: No other significant finding. IMPRESSION: Vague perihilar parenchymal opacities. SUPPORT DEVICE(S) IN EXPECTED LOCATIONS. TECHNICAL DOCUMENTATION: JOB ID: [id number] [employer]- All Rights Reserved Reading location - IP/workstation name: [email or web address]
--- NOTE | 2019-03-27 12:21 | PDOC PROGRESS REPORT ---
Subjective Progress Note for:: 03/27/19 Subjective:: 63 y.o. M admitted to the hospitalist service for acute encpehalopathy. He was found to have severe hyponatremia (Na 112) and was started on hypertonic saline. He went into acute respiratory failure deeemd to be from likely aspiration pneumonia and DTs and was intubated on 03/17. He was extubated on 03/20. The patient does not have a history of AFIB, went into AFIB w/RVR and started on a cardizem gtt. The patient was seen this morning on rounds. He is resting in bed on BiPAP. Eyes are open, minimal response to painful stimuli. Patient does not answer questions or follow commands. PERRLA. Head CT, CTA and neck CTA are all relatively benign. Suspect that the patient's encephalopathy is related to his MRSA PNA. Concerned about the patient's nutritional status. He has been without PO meds or nutrition for 48hr+. Additionally, the patient's abdomen is moderately distended. There is a high likelihood of the development of an ileus or patient is swallowing air (from BIPAP). Plan for NG tube placement today. At approximately 1130, nursing staff notified this provider that the patient's SPO2 dropped to 75%. Upon evaluation, the patient's respirations are shallow, tachypneic but lungs remain clear to auscultation, diminished in the bases. MANAGER VIDEO called. CXR showed bilateral lower lobe opacities. While at the bedside, the patient's SPO2 will fluctuate from 74-89%. Due to the patient's tenuous status, plan to transfer to ICU for intubation. Sister, Jayleen, was given updates regarding the patient's status. Attempted to notify daughter (primary MPOA) but she did not answer the phone. Reason For Visit: SEVERE HYPONATREMIA Physical Exam Vital Signs: Temp Pulse Resp BP Pulse Ox 98.3 F 103 H 26 H 118/59 L 90 L 03/27/19 07:42 03/27/19 07:43 03/27/19 07:43 03/27/19 07:42 03/27/19 07:43 Intake & Output 03/26/19 03/27/19 03/28/19 06:59 06:59 06:59 Intake Total 567 551 125 Output Total 1750 730 Balance -1183 -179 125 Weight 52.7 kg 51.4 kg General appearance: PRESENT: thin Head exam: PRESENT: atraumatic Eye exam: PRESENT: conjunctiva pink, PERRLA Mouth exam: PRESENT: dry mucosa, tongue midline Teeth exam: PRESENT: poor dentation Respiratory exam: PRESENT: decreased breath sounds - B/L LOWER LOBES, symmetrical, tachypnea, other - SHALLOW Cardiovascular exam: PRESENT: tachycardia Pulses: PRESENT: +1 pedal pulses bilateral Vascular exam: PRESENT: pallor GI/Abdominal exam: PRESENT: distended, normal bowel sounds, soft Rectal exam: PRESENT: deferred Extremities exam: PRESENT: other - ABLE TO LOCALIZE PAIN BUT DOES NOT WITHDRAW (IN ALL 4 EXTREMITIES).. ABSENT: full ROM, joint swelling, pedal edema Musculoskeletal exam: ABSENT: deformity Neurological exam: PRESENT: other - NONVERBAL. DOES NOT TRACK. DOES NOT FOLLOW COMMANDS.. ABSENT: alert, awake, oriented to person, oriented to place, oriented to time, oriented to situation Psychiatric exam: PRESENT: other - OBTUNDED. DIFFICULT TO AROUSE. EYES OPEN BUT MINIMAL RESPONSE TO PAINFUL STIMULI. Skin exam: PRESENT: dry, pallor Results Laboratory Results: 03/27/19 05:25 03/27/19 05:25 03/27/19 03/27/19 05:25 05:25 WBC 15.5 H RBC 3.33 L Hgb 9.5 L Hct 30.5 L MCV 92 MCH 28.6 MCHC 31.3 L RDW 16.0 H Plt Count 602 H Sodium 153.3 H Potassium 2.7 L* Chloride 108 H Carbon Dioxide 36 H Anion Gap 9 BUN 31 H Creatinine 1.57 H Est GFR ( Amer) 54 L Est GFR (Non-Af Amer) 45 L Glucose 127 H Calcium 9.4 Phosphorus 5.1 H Magnesium 2.3 Total Bilirubin 0.3 AST 19 ALT 20 L Alkaline Phosphatase 102 Total Protein 6.7 Albumin 3.1 L 03/24/19 13:35 Tracheal Aspirate Gram Stain - Final 03/24/19 13:35 Tracheal Aspirate Sputum Culture - Final Mrsa (Meth Resis Staph Aureus) Normal Erica Absent 03/15/19 03/15/19 03/21/19 13:23 13:23 03:25 Creatine Kinase 62 CK-MB (CK-2) 2.61 Troponin I 0.014 NT-Pro-B Natriuret Pep 91465 H Impressions: Chest CT 03/22/19 08:22 IMPRESSION: Extensive ground-glass infiltrates. Pulmonary edema versus infection. Significant bilateral pleural effusions. Atherosclerosis. There is a PICC on the right. Head CTA 03/26/19 00:00 IMPRESSION: 1. No acute intracranial pathology. No noncontrast CT evidence of acute stroke or hemorrhage. Small vessel white matter disease. 2. No evidence of intracranial occlusion, stenosis, or aneurysm. 3. There is calcific atherosclerosis of the bilateral internal carotid artery origins with approximately 50% stenosis at the origin of the right internal carotid artery and greater than 70% stenosis of the origin of the left internal carotid artery. EVIDENCE OF ACUTE STROKE: NO. Head CT 03/26/19 09:09 IMPRESSION: 1. No acute intracranial pathology. No noncontrast CT evidence of acute stroke or hemorrhage. Small vessel white matter disease. 2. No evidence of intracranial occlusion, stenosis, or aneurysm. 3. There is calcific atherosclerosis of the bilateral internal carotid artery origins with approximately 50% stenosis at the origin of the right internal carotid artery and greater than 70% stenosis of the origin of the left internal carotid artery. EVIDENCE OF ACUTE STROKE: NO. Neck CTA 03/26/19 09:21 IMPRESSION: 1. No acute intracranial pathology. No noncontrast CT evidence of acute stroke or hemorrhage. Small vessel white matter disease. 2. No evidence of intracranial occlusion, stenosis, or aneurysm. 3. There is calcific atherosclerosis of the bilateral internal carotid artery origins with approximately 50% stenosis at the origin of the right internal carotid artery and greater than 70% stenosis of the origin of the left internal carotid artery. EVIDENCE OF ACUTE STROKE: NO. Status: Imported from PACS Assessment and Plan - Diagnosis (1) Encephalopathy Is this a current diagnosis for this admission?: Yes Plan: WORSENING Worse today, patient minimally responsive Head CT, CTA, neck CTA negative for acute stroke, only demonstrates moderate carotid stenosis, no evidence of CVA Altered mental status likely due to untreated MRSA infection Outside of the window for ETOH related seizures Initiated IV vancomycin Mental status not improving, consider EEG to evaluate for subclinical seizures. (2) Acute hypoxemic respiratory failure Is this a current diagnosis for this admission?: Yes Plan: WORSENING Rapid response called today for acute hypoxic respiratory failure Plan to transfer to ICU for intubation today Initially intubated on March 17 due to aspiration pneumonia EtOH withdrawal/DT, extubated on March 20 Currently on BiPAP, settings changed during rapid response to IPAP 20 EPAP 8 FiO2 100% CT chest demonstrates significant bilateral pleural effusions CXR today shows bilateral airspace disease and improving bilateral effusions Continue scheduled and PRN nebulizer treatments (3) Aspiration pneumonia Is this a current diagnosis for this admission?: Yes Plan: Previously believed to be a gram(-) source and treated with Zosyn Clinically the patient appears worse, increasing oxygen requirements, tachypnea, worsening encephalopathy Notified by microbiology today that patient's sputum tested positive for MRSA Discontinued IV Zosyn initiated IV vancomycin (4) Hypernatremia Is this a current diagnosis for this admission?: Yes Plan: Secondary to dehydration and overcorrection of hyponatremia Previously on hypertonic saline for HYPOnatremia (Na 112) Currently on Normal Saline IVF, will switch to D51/2 NS (5) COPD (chronic obstructive pulmonary disease) Qualifiers: Emphysema type: unspecified Is this a current diagnosis for this admission?: Yes Plan: Requiring BiPAP CXR shows complete resolution of bilateral airspace disease and bilateral effusions Scheduled and as needed Xopenex (avoid DuoNeb's due to history of AFIB w/RVR) Scheduled Atrovent (6) Hypokalemia Is this a current diagnosis for this admission?: Yes Plan: RESOLVED Lasix-induced. Potassium replaced (7) Hyponatremia Is this a current diagnosis for this admission?: Yes Plan: Resolved with hypertonic saline over the course of 7 days Gradual increase in sodium levels (8) New onset atrial fibrillation Is this a current diagnosis for this admission?: Yes Plan: No PMH of atrial fibrillation Currently on Cardizem gtt. unable to transition to p.o. medication due to worsening encephalopathy CHADVASC of at least 1 (HTN) (2 possible CHF, echocardiogram is still pending) Once echocardiogram is resulted, will discuss anticoagulation with family. (9) Pleural effusion Is this a current diagnosis for this admission?: Yes Plan: Resolved Previously seen on CXR Resolved with IV diuresis - Time Time Spent with patient: 35 or more minutes Total Critical Time (Minutes): 30 Medications reviewed and adjusted accordingly: Yes Anticipated discharge: SNF Within: Other - when medically stable - Inpatient Certification Based on my medical assessment, after consideration of the patient's c omorbidities, presenting symptoms, or acuity I expect that the services needed warrant INPATIENT care.: Yes I certify that my determination is in accordance with my understanding of Medicare's requirements for reasonable and necessary INPATIENT services [42 CFR 412.3e].: Yes Medical Necessity: Significant Comorbidiites Make Outpatient Treatment Too Risky, Need for IV Antibiotics, Risk of Complication if Not Cared For in Hospital
[2019-03-27] MEDS: POTASSIUM CHLORIDE 20 MEQ PACKET NG SCH ×2 (12:37→17:07)
[2019-03-27] MEDS: FUROSEMIDE INJ/PF 40 MG/4 ML SDV IV SCH (12:37)
[2019-03-27] MEDS: MAGNESIUM OXIDE 400 MG TABLET NG SCH ×2 (12:37→17:07)
[2019-03-27] MEDS: THIAMINE HCL 100 MG TABLET NG SCH (12:37)
[2019-03-27] MEDS: ASPIRIN 81 MG TABLET, CHEWABLE NG SCH (12:37)
[2019-03-27] MEDS: PANTOPRAZOLE SODIUM 40 MG PACKET.DR NG SCH (12:37)
[2019-03-27] MEDS: LISINOPRIL 5 MG TABLET NG SCH (12:37)
[2019-03-27] MEDS: FOLIC ACID 1 MG TABLET NG SCH (12:37)
[2019-03-27 13:16] LABS: ARTERIAL BLOOD BASE EXCESS 8.7 mmol/L; ARTERIAL BLOOD H2CO3 0.77 mmol/L (1.05-1.35); ARTERIAL BLOOD HCO3 28.7 mmol/L (20-24); ARTERIAL BLOOD O2 SATURATION 99.1 % (94-98); ARTERIAL BLOOD PCO2 25.6 mmHg (35-45); ARTERIAL BLOOD PO2 128.4 mmHg (80-100); ARTERIAL BLOOD TOTAL CO2 29.5 mmol/L (23-27)
[2019-03-27 13:19] LABS: ARTERIAL BLOOD FIO2 45%
[2019-03-27 13:20] LABS: ARTERIAL BLOOD PH 7.67 (7.35-7.45)
--- NOTE | 2019-03-27 13:35 | RADIOLOGY REPORT (SQ) ---
EXAM DESCRIPTION: CHEST SINGLE VIEW COMPLETED DATE/TIME: 03/27/2019 1:24 pm REASON FOR STUDY: Confirm ETT placement COMPARISON: None. EXAM PARAMETERS: NUMBER OF VIEWS: One view. TECHNIQUE: Single frontal radiographic view of the chest acquired. RADIATION DOSE: NA LIMITATIONS: None. FINDINGS: LUNGS AND PLEURA: Emphysematous change with hyperinflation and flattening of the hemidiaph ragms. No focal consolidation, pleural effusion or pneumothorax. MEDIASTINUM AND HILAR STRUCTURES: No masses. Contour normal. HEART AND VASCULAR STRUCTURES: Normal heart size. Aortic atherosclerosis. BONES: No acute findings. HARDWARE: Endotracheal tube tip overlies midthoracic trachea. Enteric tube tip side port at GE junct ion. Right subclavian central venous catheter tip overlies cavoatrial junction. OTHER: No other significant finding. IMPRESSION: Endotracheal tube tip overlies midthoracic trachea. Enteric tube side port at GE junction. Consider advancing 5 cm. TECHNICAL DOCUMENTATION: JOB ID: [id number] [employer]- All Rights Reserved Reading location - IP/workstation name: [email or web address]
[2019-03-27] MEDS ORDERED: NORMAL SALINE 1000 ML 1,000 ML IV PRN (13:59)
[2019-03-27] MEDS ORDERED: METHYLPREDNISOLONE INJ 125 MG/2 ML SDV IV SCH (14:00)
[2019-03-27] MEDS: CEFEPIME 1 GM/D5W RTU 1 GM/50 ML RTUPB IV SCH (14:12)
[2019-03-27] MEDS: METHYLPREDNISOLONE INJ 40 MG/1 ML SDV IV SCH ×2 (14:12→22:13)
--- NOTE | 2019-03-27 14:37 | RADIOLOGY REPORT (SQ) ---
EXAM DESCRIPTION: KUB/ABDOMEN (SINGLE VIEW) COMPLETED DATE/TIME: 03/27/2019 1:24 pm REASON FOR STUDY: NGT placement COMPARISON: AP chest 03/27/2019 1316 hours AP chest 12/18/2016 NUMBER OF VIEWS: One view. TECHNIQUE: Supine radiographic image of the abdomen acquired for nasogastric tube placement. LIMITATIONS: None. FINDINGS: Nasogastric tube tip in the stomach side port at the GE junction. There are air-filled distended small bowel loops in the upper abdomen. Lung bases are clear. Old healed left lower lateral rib fractures Pelvis is cropped from the field of view. IMPRESSION: Nasogastric tube tip and side port in the stomach. Dilated small bowel loops in the left upper quadrant worrisome for small bowel obstruction versus ile us. TECHNICAL DOCUMENTATION: JOB ID: [id number] [employer]- All Rights Reserved Reading location - IP/workstation name: [email or web address]
[2019-03-27] MEDS: PROPOFOL 1,000 MG/100 ML INFUS..BTL IV PRN (15:10)
--- NOTE | 2019-03-27 15:36 | RADIOLOGY REPORT (SQ) ---
EXAM DESCRIPTION: CHEST SINGLE VIEW COMPLETED DATE/TIME: 03/27/2019 3:15 pm REASON FOR STUDY: Repositioned ETT COMPARISON: 03/27/2019 EXAM PARAMETERS: NUMBER OF VIEWS: One view. TECHNIQUE: Single frontal radiographic view of the chest acquired. RADIATION DOSE: NA LIMITATIONS: None. FINDINGS: LUNGS AND PLEURA: No new airspace disease, pleural effusion or pneumothorax. Stable chron ic changes. MEDIASTINUM AND HILAR STRUCTURES: No masses. Contour normal. HEART AND VASCULAR STRUCTURES: Normal heart size. Aortic atherosclerosis. BONES: No acute findings. HARDWARE: Endotracheal tube is been advanced and now overlies right mainstem bronchus. Consider retr action by 3 to 5 cm. Enteric tube side port overlies GE junction. Right subclavian central venous c atheter tip overlies cavoatrial junction. OTHER: No other significant finding. IMPRESSION: 1. Endotracheal tube tip has been advanced and now overlies right mainstem bronchus. R ecommend retraction by 3 to 5 cm. 2. Enteric tube side port overlies GE junction. Consider advancing 5 cm. TECHNICAL DOCUMENTATION: JOB ID: [id number] [employer]- All Rights Reserved Reading location - IP/workstation name: [email or web address]
[2019-03-27] MEDS: ACETAMINOPHEN 650 MG SUPP.RECT PR PRN (16:13)
[2019-03-27] MEDS ORDERED: PROPOFOL INJ 200 MG/20 ML VIAL IV ONE (16:16)
[2019-03-27 16:52] LABS: ANION GAP 12 (5-19); BLOOD UREA NITROGEN 36 mg/dL (7-20); CARBON DIOXIDE 29 mmol/L (22-30); CHLORIDE 110 mmol/L (98-107); GLUCOSE 207 mg/dL (75-110); POTASSIUM 3.3 mmol/L (3.6-5.0)
[2019-03-27] MEDS: AMINO AC/PROTEIN HYDR/WHEY PRO 11 GM/45 ML PKT NG SCH (17:07)
[2019-03-27] MEDS ORDERED: POTASSI CL 20 MEQ/50 ML RIDER 20 MEQ/50 ML RTUPB IV ONE (17:30)
[2019-03-27] MEDS: VANCOMYCIN HCL 750 MG in DEXTROSE 5%-WATER 250 ML IV SCH (17:32)
[2019-03-27] MEDS ORDERED: DEXTROSE 50%-WATER SYRINGE 25 GM/50 ML DOSE IV PRN (18:30)
[2019-03-27] MEDS ORDERED: NORMAL SALINE 500 ML IV ONE (18:30)
[2019-03-27] MEDS ORDERED: GLUCAGON,HUMAN RECOMB 1 MG INJ IM PRN (18:30)
[2019-03-27] MEDS ORDERED: DEXTROSE 40% GEL 15 GM TUBE PO PRN (18:30)
[2019-03-27] MEDS ORDERED: DEXTROSE 40% GEL 15 GM TUBE X 2 PO PRN (18:30)
[2019-03-27] MEDS ORDERED: DEXTROSE 50%-WATER SYRINGE 12.5 GM/25 ML DOSE IV PRN (18:30)
[2019-03-27] MEDS ORDERED: BISACODYL 10 MG SUPP.RECT PR ONE (18:44)
[2019-03-27] MEDS ORDERED: BISACODYL 10 MG SUPP.RECT PR PRN (18:44)
[2019-03-27] MEDS ORDERED: POLYETHYLENE GLYCOL 3350 POWDER 17 GM/1 PACKET NG PRN (18:48)
[2019-03-27] MEDS: NORMAL SALINE 1000 ML 1,000 ML IV PRN (20:42)
[2019-03-27] MEDS: DILTIAZEM HCL 30 MG TABLET NG SCH (23:58)
[2019-03-27] MEDS: METOCLOPRAMIDE HCL INJ/PF 10 MG/2 ML SDV IV SCH (23:59)
[2019-03-27] MEDS: INSULIN LISPRO 100 UNIT/ML 3 ML VIAL SUBCUT SCH (23:59)
[2019-03-28] MEDS: DILTIAZEM HCL/D5W 125 MG/125 ML RTUINJ IV PRN (01:56)
[2019-03-28] MEDS: LEVALBUTEROL HCL NEB 1.25 MG/3 ML AMPUL NEB SCH ×4 (02:13→20:31)
[2019-03-28] MEDS: IPRATROPIUM BROMIDE 0.02% NEB 0.5 MG/2.5 ML AMPUL NEB SCH ×4 (02:13→20:31)
[2019-03-28] MEDS: NORMAL SALINE 1000 ML 1,000 ML IV PRN ×3 (02:44→17:21)
[2019-03-28] MEDS: DILTIAZEM HCL 30 MG TABLET NG SCH ×4 (05:29→23:42)
[2019-03-28] MEDS: METHYLPREDNISOLONE INJ 40 MG/1 ML SDV IV SCH (05:29)
[2019-03-28] MEDS: METOCLOPRAMIDE HCL INJ/PF 10 MG/2 ML SDV IV SCH ×3 (05:29→17:13)
[2019-03-28] MEDS: HEPARIN SOD (PORCINE) 5,000 UNIT/ML 1 ML SYRINGE SUBCUT SCH ×3 (05:29→21:23)
[2019-03-28] MEDS: INSULIN LISPRO 100 UNIT/ML 3 ML VIAL SUBCUT SCH ×4 (05:30→23:43)
[2019-03-28 06:07] LABS: HEMATOCRIT 24.7 % (37.9-51.0); HEMOGLOBIN 8.1 g/dL (13.5-17.0); MEAN CORPUSCULAR HEMOGLOBIN 29.8 pg (27.0-33.4); MEAN CORPUSCULAR HGB CONC 32.8 g/dL (32.0-36.0); MEAN CORPUSCULAR VOLUME 91 fl (80-97); PLATELET COUNT 485 10^3/uL (150-450); RED BLOOD COUNT 2.72 10^6/uL (4.35-5.55); RED CELL DISTRIBUTION WIDTH 16.1 % (11.5-14.0); WHITE BLOOD COUNT 19.9 10^3/uL (4.0-10.5)
[2019-03-28 06:11] LABS: ARTERIAL BLOOD BASE EXCESS 0.9 mmol/L; ARTERIAL BLOOD H2CO3 0.68 mmol/L (1.05-1.35); ARTERIAL BLOOD HCO3 21.8 mmol/L (20-24); ARTERIAL BLOOD PCO2 22.6 mmHg (35-45); ARTERIAL BLOOD PO2 125.6 mmHg (80-100); ARTERIAL BLOOD TOTAL CO2 22.5 mmol/L (23-27)
[2019-03-28 06:16] LABS: ARTERIAL BLOOD FIO2 40%
--- NOTE | 2019-03-28 06:22 | RADIOLOGY REPORT (SQ) ---
EXAM DESCRIPTION: X-ray single view chest. CLINICAL HISTORY: 63 years Male, respiratory failure COMPARISON: None. TECHNIQUE: Single portable x-ray view of the chest performed on 03/28/2019 at 6:03 AM FINDINGS: The lungs are mildly hyperinflated and are grossly clear. There is no evidence of a pneumothorax. There is likely a prominent nipple shadow projecting over the right hemithorax between the posterior sixth and seventh ribs. The cardiac silhouette is normal in size and configuration. The mediastinal contours are normal. No acute osseous abnormality is identified. No focal soft tissue abnormalities are seen. Lines and tubes: The endotracheal tube terminates below the thoracic inlet and above the raúl. The right subclavian central venous catheter tip terminates in the region of the superior vena cava. The feeding tube extends below the diaphragm and projects to the right of midline. IMPRESSION: 1. No definite acute intrathoracic disease. 2. Life support lines and tubes in grossly satisfactory position.
[2019-03-28 06:33] LABS: ALANINE AMINOTRANSFERASE 21 U/L (21-72); ALBUMIN 2.6 g/dL (3.5-5.0); ALKALINE PHOSPHATASE 80 U/L (38-126); ANION GAP 10 (5-19); ASPARTATE AMINO TRANSFERASE 16 U/L (17-59); BILIRUBIN,DIRECT 0.3 mg/dL (0.0-0.4); BILIRUBIN,TOTAL 0.3 mg/dL (0.2-1.3); BLOOD UREA NITROGEN 36 mg/dL (7-20); CALCIUM 8.8 mg/dL (8.4-10.2); CARBON DIOXIDE 24 mmol/L (22-30); CHLORIDE 116 mmol/L (98-107); GLUCOSE 138 mg/dL (75-110); PHOSPHORUS 3.4 mg/dL (2.5-4.5); POTASSIUM 3.4 mmol/L (3.6-5.0); SODIUM 150.4 mmol/L (137-145); TOTAL PROTEIN 5.7 g/dL (6.3-8.2)
--- NOTE | 2019-03-28 06:47 | PDOC PROGRESS REPORT ---
Subjective Progress Note for:: 03/27/19 Subjective:: Critical care note Reason For Visit: SEVERE HYPONATREMIA Acute hypoxic respiratory failure Aspiration pneumonia Physical Exam Vital Signs: Temp Pulse Resp BP Pulse Ox 101.2 F H 112 H 22 H 72/60 L 100 03/27/19 12:00 03/27/19 13:33 03/27/19 12:00 03/27/19 12:00 03/27/19 12:11 Intake & Output 03/26/19 03/27/19 03/28/19 06:59 06:59 06:59 Intake Total 956 636 2516 Output Total 1750 730 Balance -1183 -179 1125 Weight 52.7 kg 51.4 kg 45 kg General appearance: PRESENT: no acute distress - Patient intubated at this time Head exam: PRESENT: atraumatic, normocephalic Mouth exam: PRESENT: other - Nasogastric tube and endotracheal tube in place Respiratory exam: PRESENT: clear to auscultation pierre, decreased breath sounds - At bases, symmetrical. ABSENT: rales, rhonchi, wheezes Cardiovascular exam: PRESENT: irregular rhythm, tachycardia Pulses: PRESENT: +1 pedal pulses bilateral GI/Abdominal exam: PRESENT: distended, hypoactive bowel sounds, soft. ABSENT: tenderness Rectal exam: PRESENT: deferred Gentrourinary exam: PRESENT: indwelling catheter Extremities exam: ABSENT: pedal edema Musculoskeletal exam: PRESENT: normal inspection Neurological exam: ABSENT: awake Psychiatric exam: ABSENT: agitated Focused psych exam: ABSENT: restlessness Skin exam: PRESENT: mottled - Slightly mottled at the knees. Nursing from third floor reports that this is been his baseline. Results Laboratory Results: 03/27/19 05:25 03/27/19 05:25 03/27/19 03/27/19 03/27/19 05:25 05:25 12:43 WBC 15.5 H RBC 3.33 L Hgb 9.5 L Hct 30.5 L MCV 92 MCH 28.6 MCHC 31.3 L RDW 16.0 H Plt Count 602 H Carbonic Acid 0.77 L HCO3/H2CO3 Ratio 37:1 ABG pH 7.67 H* ABG pCO2 25.6 L ABG pO2 128.4 H ABG HCO3 28.7 H ABG O2 Saturation 99.1 H ABG Base Excess 8.7 FiO2 45% Sodium 153.3 H Potassium 2.7 L* Chloride 108 H Carbon Dioxide 36 H Anion Gap 9 BUN 31 H Creatinine 1.57 H Est GFR ( Amer) 54 L Est GFR (Non-Af Amer) 45 L Glucose 127 H Calcium 9.4 Phosphorus 5.1 H Magnesium 2.3 Total Bilirubin 0.3 AST 19 ALT 20 L Alkaline Phosphatase 102 Total Protein 6.7 Albumin 3.1 L 03/15/19 03/15/19 03/21/19 13:23 13:23 03:25 Creatine Kinase 62 CK-MB (CK-2) 2.61 Troponin I 0.014 NT-Pro-B Natriuret Pep 68032 H Impressions: Chest CT 03/22/19 08:22 IMPRESSION: Extensive ground-glass infiltrates. Pulmonary edema versus infection. Significant bilateral pleural effusions. Atherosclerosis. There is a PICC on the right. Head CTA 03/26/19 00:00 IMPRESSION: 1. No acute intracranial pathology. No noncontrast CT evidence of acute stroke or hemorrhage. Small vessel white matter disease. 2. No evidence of intracranial occlusion, stenosis, or aneurysm. 3. There is calcific atherosclerosis of the bilateral internal carotid artery origins with approximately 50% stenosis at the origin of the right internal carotid artery and greater than 70% stenosis of the origin of the left internal carotid artery. EVIDENCE OF ACUTE STROKE: NO. Head CT 03/26/19 09:09 IMPRESSION: 1. No acute intracranial pathology. No noncontrast CT evidence of acute stroke or hemorrhage. Small vessel white matter disease. 2. No evidence of intracranial occlusion, stenosis, or aneurysm. 3. There is calcific atherosclerosis of the bilateral internal carotid artery origins with approximately 50% stenosis at the origin of the right internal carotid artery and greater than 70% stenosis of the origin of the left internal carotid artery. EVIDENCE OF ACUTE STROKE: NO. Neck CTA 03/26/19 09:21 IMPRESSION: 1. No acute intracranial pathology. No noncontrast CT evidence of acute stroke or hemorrhage. Small vessel white matter disease. 2. No evidence of intracranial occlusion, stenosis, or aneurysm. 3. There is calcific atherosclerosis of the bilateral internal carotid artery origins with approximately 50% stenosis at the origin of the right internal carotid artery and greater than 70% stenosis of the origin of the left internal carotid artery. EVIDENCE OF ACUTE STROKE: NO. Chest X-Ray 03/27/19 12:55 IMPRESSION: Endotracheal tube tip overlies midthoracic trachea. Enteric tube side port at GE junction. Consider advancing 5 cm. Assessment and Plan - Diagnosis (1) Encephalopathy Is this a current diagnosis for this admission?: Yes Plan: WORSENING Worse today, patient minimally responsive Head CT, CTA, neck CTA negative for acute stroke, only demonstrates moderate carotid stenosis, no evidence of CVA Altered mental status likely due to untreated MRSA infection Outside of the window for ETOH related seizures Initiated IV vancomycin Mental status not improving, consider EEG to evaluate for subclinical seizures. 03/27/2019-the patient was minimally responsive on admission to the ICU. He is ventilated and on sedation therefore encephalopathy cannot be addressed at this time. (2) Acute hypoxemic respiratory failure Is this a current diagnosis for this admission?: Yes Plan: WORSENING Rapid response called today for acute hypoxic respiratory failure Plan to transfer to ICU for intubation today Initially intubated on March 17 due to aspiration pneumonia EtOH withdrawal/DT, extubated on March 20 Currently on BiPAP, settings changed during rapid response to IPAP 20 EPAP 8 FiO2 100% CT chest demonstrates significant bilateral pleural effusions CXR today shows bilateral airspace disease and improving bilateral effusions Continue scheduled and PRN nebulizer treatments 03/27/2019-I was contacted by Nata Vasquez, nurse practitioner. The patient was declining. He was exhibiting decreasing oxygen saturations requiring BiPAP but was still tachypneic. There was noticeably increased work of breathing. Patient was in fact emergently transferred to the ICU. He was immediately intubated. Postintubation he was still tachypneic but with sedation he settled. He exhibited a contraction alkalosis (see below) and was hypotensive with tachycardia. Once intubated his respiratory status stabilized. There was no evidence of pneumonia but the patient did exhibit hyperinflated lungs consistent with COPD. (3) Aspiration pneumonia Is this a current diagnosis for this admission?: Yes Plan: Previously believed to be a gram(-) source and treated with Zosyn Clinically the patient appears worse, increasing oxygen requirements, tachypnea, worsening encephalopathy Notified by microbiology today that patient's sputum tested positive for MRSA Discontinued IV Zosyn initiated IV vancomycin 03/27/2019-patient does have a positive sputum for methicillin-resistant staph aureus and has been on vancomycin. However with the possibility of aspiration I have added cefepime. A new culture was sent as there was marked sputum production upon intubation. We will continue dual antibiotic therapy at this time. (4) Hypernatremia Is this a current diagnosis for this admission?: Yes Plan: Secondary to dehydration and overcorrection of hyponatremia Previously on hypertonic saline for HYPOnatremia (Na 112) Currently on Normal Saline IVF, will switch to D51/2 NS 03/27/2019-the patient's serum sodium was 153. He was hyponatremic and received hypertonic saline initially. He was on D5 half-normal saline but because of his low blood pressures I did in fact change him to normal saline with fluid boluses. This certainly will not raise his serum sodium and with adequate volume his serum sodium should improve. (5) COPD (chronic obstructive pulmonary disease) Qualifiers: Emphysema type: unspecified Is this a current diagnosis for this admission?: Yes Plan: Requiring BiPAP CXR shows complete resolution of bilateral airspace disease and bilateral effusions Scheduled and as needed Xopenex (avoid DuoNeb's due to history of AFIB w/RVR) Scheduled Atrovent 03/27/2019-as noted above the patient is now intubated. Inhaler therapy inst ituted as well as IV steroids. (6) Hypokalemia Is this a current diagnosis for this admission?: Yes Plan: RESOLVED Lasix-induced. Potassium replaced 03/27/2019-the patient will be on the electrolyte replacement protocol. He in fact has received 60 mEq of potassium already today. Continue to follow electrolyte levels and replace as needed. (7) New onset atrial fibrillation Is this a current diagnosis for this admission?: Yes Plan: No PMH of atrial fibrillation Currently on Cardizem gtt. unable to transition to p.o. medication due to worsening encephalopathy CHADVASC of at least 1 (HTN) (2 possible CHF, echocardiogram is still pending) Once echocardiogram is resulted, will discuss anticoagulation with family. 03/27/2019-we will review echocardiogram. Currently balancing rate control with his hypotension. Will adjust medications throughout the day accordingly. (8) Pleural effusion Is this a current diagnosis for this admission?: Yes Plan: Resolved Previously seen on CXR Resolved with IV diuresis 03/27/2019-we will continue to monitor for any recurrence. (9) Acute kidney failure Qualifiers: Acute renal failure type: unspecified Qualified Code(s): N17.9 - Acute kidney failure, unspecified Is this a current diagnosis for this admission?: Yes Plan: 03/27/2019-likely due to a combination of diuresis and hypoperfusion. As noted above will provide IV hydration and continue to monitor function. - Time Time Spent with patient: 35 or more minutes Total Critical Time (Minutes): 55 Medications reviewed and adjusted accordingly: Yes
[2019-03-28] MEDS: BUDESONIDE NEB 0.5 MG/2 ML AMPUL NEB SCH ×2 (07:47→20:31)
[2019-03-28] MEDS ORDERED: POTASSI CL 20 MEQ/50 ML RIDER 20 MEQ/50 ML RTUPB IV ONE (07:48)
[2019-03-28] MEDS: PROPOFOL 1,000 MG/100 ML INFUS..BTL IV PRN (07:50)
[2019-03-28] MEDS: POTASSIUM CHLORIDE 20 MEQ/50 ML RTU IV SCH ×2 (08:03→10:42)
[2019-03-28] MEDS: ASPIRIN 81 MG TABLET, CHEWABLE NG SCH (09:21)
[2019-03-28] MEDS: FOLIC ACID 1 MG TABLET NG SCH (09:22)
[2019-03-28] MEDS: CEFEPIME 1 GM/D5W RTU 1 GM/50 ML RTUPB IV SCH (09:22)
[2019-03-28] MEDS: THIAMINE HCL 100 MG TABLET NG SCH (09:22)
[2019-03-28] MEDS: POTASSIUM CHLORIDE 20 MEQ PACKET NG SCH ×2 (09:22→17:14)
[2019-03-28] MEDS: PANTOPRAZOLE SODIUM 40 MG VIAL IV SCH (09:23)
[2019-03-28] MEDS ORDERED: NORMAL SALINE 1000 ML 1,000 ML IV ONE (11:00)
[2019-03-28] MEDS: METHYLPREDNISOLONE INJ 125 MG/2 ML SDV IV SCH ×2 (13:08→21:23)
--- NOTE | 2019-03-28 13:42 | PDOC PROGRESS REPORT ---
Subjective Progress Note for:: 03/28/19 Subjective:: Remains intubated and sedated Reason For Visit: SEVERE HYPONATREMIA Physical Exam Vital Signs: Temp Pulse Resp BP Pulse Ox 98.4 F 85 18 144/74 H 99 03/28/19 12:00 03/28/19 12:00 03/28/19 12:00 03/28/19 12:00 03/28/19 12:49 Intake & Output 03/27/19 03/28/19 03/29/19 06:59 06:59 06:59 Intake Total 551 3306 3894 Output Total 730 355 125 Balance -179 6521 2679 Weight 51.4 kg 47.6 kg General appearance: PRESENT: no acute distress, thin, other - Intubated and sedated Head exam: PRESENT: atraumatic, normocephalic Ear exam: PRESENT: normal external ear exam Mouth exam: PRESENT: other - Endotracheal and nasogastric tubes in place Respiratory exam: PRESENT: rhonchi - Faint on the left, symmetrical, unlabored. ABSENT: accessory muscle use, rales, wheezes Cardiovascular exam: PRESENT: RRR, +S1, +S2 GI/Abdominal exam: PRESENT: hypoactive bowel sounds, soft. ABSENT: distended, tenderness Rectal exam: PRESENT: deferred Gentrourinary exam: PRESENT: indwelling catheter Extremities exam: ABSENT: joint swelling, pedal edema Musculoskeletal exam: PRESENT: other - Decreased muscle mass Neurological exam: ABSENT: awake Psychiatric exam: ABSENT: agitated Focused psych exam: ABSENT: restlessness Results Laboratory Results: 03/28/19 05:50 03/28/19 05:50 03/27/19 03/28/19 03/28/19 16:15 05:50 05:50 WBC RBC Hgb Hct MCV MCH MCHC RDW Plt Count Carbonic Acid 0.68 L HCO3/H2CO3 Ratio 32:1 ABG pH 7.60 H* ABG pCO2 22.6 L ABG pO2 125.6 H ABG HCO3 21.8 ABG O2 Saturation 99.0 H ABG Base Excess 0.9 FiO2 40% Sodium 151.0 H Potassium 3.3 L Chloride 110 H Carbon Dioxide 29 Anion Gap 12 BUN 36 H Creatinine 2.32 H Est GFR ( Amer) 35 L Est GFR (Non-Af Amer) 29 L Glucose 207 H Lactic Acid Calcium 9.0 Phosphorus Magnesium Total Bilirubin AST ALT Alkaline Phosphatase Ammonia < 8.7 L Total Protein Albumin 03/28/19 03/28/19 03/28/19 05:50 05:50 06:04 WBC 19.9 H RBC 2.72 L Hgb 8.1 L Hct 24.7 L MCV 91 MCH 29.8 MCHC 32.8 RDW 16.1 H Plt Count 485 H Carbonic Acid HCO3/H2CO3 Ratio ABG pH ABG pCO2 ABG pO2 ABG HCO3 ABG O2 Saturation ABG Base Excess FiO2 Sodium 150.4 H Potassium 3.4 L Chloride 116 H Carbon Dioxide 24 Anion Gap 10 BUN 36 H Creatinine 1.53 H Est GFR ( Amer) 56 L Est GFR (Non-Af Amer) 46 L Glucose 138 H Lactic Acid 1.3 Calcium 8.8 Phosphorus 3.4 Magnesium 2.0 Total Bilirubin 0.3 AST 16 L ALT 21 Alkaline Phosphatase 80 Ammonia Total Protein 5.7 L Albumin 2.6 L 03/15/19 03/15/19 03/21/19 13:23 13:23 03:25 Creatine Kinase 62 CK-MB (CK-2) 2.61 Troponin I 0.014 NT-Pro-B Natriuret Pep 60002 H Impressions: Chest CT 03/22/19 08:22 IMPRESSION: Extensive ground-glass infiltrates. Pulmonary edema versus infection. Significant bilateral pleural effusions. Atherosclerosis. There is a PICC on the right. Head CTA 03/26/19 00:00 IMPRESSION: 1. No acute intracranial pathology. No noncontrast CT evidence of acute stroke or hemorrhage. Small vessel white matter disease. 2. No evidence of intracranial occlusion, stenosis, or aneurysm. 3. There is calcific atherosclerosis of the bilateral internal carotid artery origins with approximately 50% stenosis at the origin of the right internal carotid artery and greater than 70% stenosis of the origin of the left internal carotid artery. EVIDENCE OF ACUTE STROKE: NO. Head CT 03/26/19 09:09 IMPRESSION: 1. No acute intracranial pathology. No noncontrast CT evidence of acute stroke or hemorrhage. Small vessel white matter disease. 2. No evidence of intracranial occlusion, stenosis, or aneurysm. 3. There is calcific atherosclerosis of the bilateral internal carotid artery origins with approximately 50% stenosis at the origin of the right internal carotid artery and greater than 70% stenosis of the origin of the left internal carotid artery. EVIDENCE OF ACUTE STROKE: NO. Neck CTA 03/26/19 09:21 IMPRESSION: 1. No acute intracranial pathology. No noncontrast CT evidence of acute stroke or hemorrhage. Small vessel white matter disease. 2. No evidence of intracranial occlusion, stenosis, or aneurysm. 3. There is calcific atherosclerosis of the bilateral internal carotid artery origins with approximately 50% stenosis at the origin of the right internal carotid artery and greater than 70% stenosis of the origin of the left internal carotid artery. EVIDENCE OF ACUTE STROKE: NO. KUB X-Ray 03/27/19 13:11 IMPRESSION: Nasogastric tube tip and side port in the stomach. Dilated small bowel loops in the left upper quadrant worrisome for small bowel obstruction versus ileus. Chest X-Ray 03/28/19 06:00 IMPRESSION: 1. No definite acute intrathoracic disease. 2. Life support lines and tubes in grossly satisfactory position. Assessment and Plan - Diagnosis (1) Encephalopathy Is this a current diagnosis for this admission?: Yes Plan: WORSENING Worse today, patient minimally responsive Head CT, CTA, neck CTA negative for acute stroke, only demonstrates moderate carotid stenosis, no evidence of CVA Altered mental status likely due to untreated MRSA infection Outside of the window for ETOH related seizures Initiated IV vancomycin Mental status not improving, consider EEG to evaluate for subclinical seizures. 03/27/2019-the patient was minimally responsive on admission to the ICU. He is ventilated and on sedation therefore encephalopathy cannot be addressed at this time. 03/28/2019-currently unable to assess (2) Acute hypoxemic respiratory failure Is this a current diagnosis for this admission?: Yes Plan: WORSENING Rapid response called today for acute hypoxic respiratory failure Plan to transfer to ICU for intubation today Initially intubated on March 17 due to aspiration pneumonia EtOH withdrawal/DT, extubated on March 20 Currently on BiPAP, settings changed during rapid response to IPAP 20 EPAP 8 FiO2 100% CT chest demonstrates significant bilateral pleural effusions CXR today shows bilateral airspace disease and improving bilateral effusions Continue scheduled and PRN nebulizer treatments 03/27/2019-I was contacted by Nata Vasquez, nurse practitioner. The patient was declining. He was exhibiting decreasing oxygen saturations requiring BiPAP but was still tachypneic. There was noticeably increased work of breathing. Patient was in fact emergently transferred to the ICU. He was immediately intubated. Postintubation he was still tachypneic but with sedation he settled. He exhibited a contraction alkalosis (see below) and was hypotensive with tachycardia. Once intubated his respiratory status stabilized. There was no evidence of pneumonia but the patient did exhibit hyperinflated lungs consistent with COPD. 03/28/2019-appears stable today. We will continue weaning trials. Continue ster oids and inhaler therapy as well as antibiotics. (3) Aspiration pneumonia Is this a current diagnosis for this admission?: Yes Plan: Previously believed to be a gram(-) source and treated with Zosyn Clinically the patient appears worse, increasing oxygen requirements, tachypnea, worsening encephalopathy Notified by microbiology today that patient's sputum tested positive for MRSA Discontinued IV Zosyn initiated IV vancomycin 03/27/2019-patient does have a positive sputum for methicillin-resistant staph aureus and has been on vancomycin. However with the possibility of aspiration I have added cefepime. A new culture was sent as there was marked sputum production upon intubation. We will continue dual antibiotic therapy at this time. 03/28/2019-sputum culture again revealing gram-positive cocci in clusters which is likely the MRSA. We will keep the cefepime on board for the time being until final sputum results are available. (4) Hypernatremia Is this a current diagnosis for this admission?: Yes Plan: Secondary to dehydration and overcorrection of hyponatremia Previously on hypertonic saline for HYPOnatremia (Na 112) Currently on Normal Saline IVF, will switch to D51/2 NS 03/27/2019-the patient's serum sodium was 153. He was hyponatremic and received hypertonic saline initially. He was on D5 half-normal saline but because of his low blood pressures I did in fact change him to normal saline with fluid boluses. This certainly will not raise his serum sodium and with adequate volume his serum sodium should improve. 03/28/2019-serum sodium is improved slightly. After the current saline infusion is completed I will change him back to half-normal saline. (5) COPD (chronic obstructive pulmonary disease) Qualifiers: Emphysema type: unspecified Is this a current diagnosis for this admission?: Yes Plan: Requiring BiPAP CXR shows complete resolution of bilateral airspace disease and bilateral effusions Scheduled and as needed Xopenex (avoid DuoNeb's due to history of AFIB w/RVR) Scheduled Atrovent 03/27/2019-as noted above the patient is now intubated. Inhaler therapy instituted as well as IV steroids. 03/28/2019-currently on IV steroids as well as multiple inhalers. Continue same. (6) Hypokalemia Is this a current diagnosis for this admission?: Yes Plan: RESOLVED Lasix-induced. Potassium replaced 03/27/2019-the patient will be on the electrolyte replacement protocol. He in fact has received 60 mEq of potassium already today. Continue to follow electrolyte levels and replace as needed. 03/28/2019-continue electrolyte replacement protocol. Potassium was 3.4 this morning. (7) New onset atrial fibrillation Is this a current diagnosis for this admission?: Yes Plan: No PMH of atrial fibrillation Currently on Cardizem gtt. unable to transition to p.o. medication due to worsening encephalopathy CHADVASC of at least 1 (HTN) (2 possible CHF, echocardiogram is still pending) Once echocardiogram is resulted, will discuss anticoagulation with family. 03/27/2019-we will review echocardiogram. Currently balancing rate control with his hypotension. Will adjust medications throughout the day accordingly. 03/28/2019-rate is well controlled. Blood pressure is improved. Continue curre nt regimen. He is borderline bradycardic at this time. (8) Pleural effusion Is this a current diagnosis for this admission?: Yes Plan: Resolved Previously seen on CXR Resolved with IV diuresis 03/27/2019-we will continue to monitor for any recurrence. 03/28/2019-still requiring IV fluids. Monitor for effusion recurrence. (9) Acute kidney failure Qualifiers: Acute renal failure type: unspecified Qualified Code(s): N17.9 - Acute kidney failure, unspecified Is this a current diagnosis for this admission?: Yes Plan: 03/27/2019-likely due to a combination of diuresis and hypoperfusion. As noted above will provide IV hydration and continue to monitor function. 03/28/2019-serum creatinine is down to 1.53 from greater than 2.0. We will continue the fluid regimen as outlined above and monitor renal function. Adjust medications accordingly. - Time Time Spent with patient: 15-24 minutes Medications reviewed and adjusted accordingly: Yes
--- NOTE | 2019-03-28 14:13 | PDOC PROGRESS REPORT ---
Subjective Progress Note for:: 03/28/19 Subjective:: Patient re-intubated, currently intubated and sedated. Reason For Visit: SEVERE HYPONATREMIA Physical Exam Vital Signs: Temp Pulse Resp BP Pulse Ox 98.6 F 85 21 H 138/77 H 99 03/28/19 14:00 03/28/19 12:00 03/28/19 14:00 03/28/19 13:48 03/28/19 14:00 Intake & Output 03/27/19 03/28/19 03/29/19 06:59 06:59 06:59 Intake Total 551 3306 3894 Output Total 730 355 125 Balance -179 2951 3769 Weight 51.4 kg 47.6 kg General appearance: PRESENT: thin Head exam: PRESENT: atraumatic, normocephalic Eye exam: PRESENT: conjunctiva pink, EOMI, PERRLA. ABSENT: scleral icterus Ear exam: PRESENT: normal external ear exam Mouth exam: PRESENT: moist, tongue midline Neck exam: ABSENT: carotid bruit, JVD, lymphadenopathy, thyromegaly Respiratory exam: PRESENT: decreased breath sounds, symmetrical, tachypnea. ABSENT: rales, rhonchi, wheezes Cardiovascular exam: PRESENT: tachycardia. ABSENT: diastolic murmur, rubs, systolic murmur Pulses: PRESENT: normal dorsalis pedis pul Vascular exam: PRESENT: normal capillary refill GI/Abdominal exam: PRESENT: normal bowel sounds, soft. ABSENT: distended, guarding, mass, organolmegaly, rebound, tenderness Rectal exam: PRESENT: deferred Extremities exam: PRESENT: full ROM. ABSENT: calf tenderness, clubbing, pedal edema Neurological exam: ABSENT: awake Psychiatric exam: PRESENT: appropriate affect, normal mood. ABSENT: homicidal ideation, suicidal ideation Skin exam: PRESENT: dry, intact, warm. ABSENT: cyanosis, rash Results Laboratory Results: 03/28/19 05:50 03/27/19 03/28/19 03/28/19 16:15 05:50 05:50 WBC RBC Hgb Hct MCV MCH MCHC RDW Plt Count Carbonic Acid 0.68 L HCO3/H2CO3 Ratio 32:1 ABG pH 7.60 H* ABG pCO2 22.6 L ABG pO2 125.6 H ABG HCO3 21.8 ABG O2 Saturation 99.0 H ABG Base Excess 0.9 FiO2 40% Sodium 151.0 H Potassium 3.3 L Chloride 110 H Carbon Dioxide 29 Anion Gap 12 BUN 36 H Creatinine 2.32 H Est GFR ( Amer) 35 L Est GFR (Non-Af Amer) 29 L Glucose 207 H Lactic Acid Calcium 9.0 Phosphorus Magnesium Total Bilirubin AST ALT Alkaline Phosphatase Ammonia < 8.7 L Total Protein Albumin 03/28/19 03/28/19 03/28/19 05:50 05:50 06:04 WBC 19.9 H RBC 2.72 L Hgb 8.1 L Hct 24.7 L MCV 91 MCH 29.8 MCHC 32.8 RDW 16.1 H Plt Count 485 H Carbonic Acid HCO3/H2CO3 Ratio ABG pH ABG pCO2 ABG pO2 ABG HCO3 ABG O2 Saturation ABG Base Excess FiO2 Sodium 150.4 H Potassium 3.4 L Chloride 116 H Carbon Dioxide 24 Anion Gap 10 BUN 36 H Creatinine 1.53 H Est GFR ( Amer) 56 L Est GFR (Non-Af Amer) 46 L Glucose 138 H Lactic Acid 1.3 Calcium 8.8 Phosphorus 3.4 Magnesium 2.0 Total Bilirubin 0.3 AST 16 L ALT 21 Alkaline Phosphatase 80 Ammonia Total Protein 5.7 L Albumin 2.6 L 03/15/19 03/15/19 03/21/19 13:23 13:23 03:25 Creatine Kinase 62 CK-MB (CK-2) 2.61 Troponin I 0.014 NT-Pro-B Natriuret Pep 17333 H Impressions: Chest CT 03/22/19 08:22 IMPRESSION: Extensive ground-glass infiltrates. Pulmonary edema versus infection. Significant bilateral pleural effusions. Atherosclerosis. There is a PICC on the right. Head CTA 03/26/19 00:00 IMPRESSION: 1. No acute intracranial pathology. No noncontrast CT evidence of acute stroke or hemorrhage. Small vessel white matter disease. 2. No evidence of intracranial occlusion, stenosis, or aneurysm. 3. There is calcific atherosclerosis of the bilateral internal carotid artery origins with approximately 50% stenosis at the origin of the right internal carotid artery and greater than 70% stenosis of the origin of the left internal carotid artery. EVIDENCE OF ACUTE STROKE: NO. Head CT 03/26/19 09:09 IMPRESSION: 1. No acute intracranial pathology. No noncontrast CT evidence of acute stroke or hemorrhage. Small vessel white matter disease. 2. No evidence of intracranial occlusion, stenosis, or aneurysm. 3. There is calcific atherosclerosis of the bilateral internal carotid artery origins with approximately 50% stenosis at the origin of the right internal ca rotid artery and greater than 70% stenosis of the origin of the left internal carotid artery. EVIDENCE OF ACUTE STROKE: NO. Neck CTA 03/26/19 09:21 IMPRESSION: 1. No acute intracranial pathology. No noncontrast CT evidence of acute stroke or hemorrhage. Small vessel white matter disease. 2. No evidence of intracranial occlusion, stenosis, or aneurysm. 3. There is calcific atherosclerosis of the bilateral internal carotid artery origins with approximately 50% stenosis at the origin of the right internal carotid artery and greater than 70% stenosis of the origin of the left internal carotid artery. EVIDENCE OF ACUTE STROKE: NO. KUB X-Ray 03/27/19 13:11 IMPRESSION: Nasogastric tube tip and side port in the stomach. Dilated small bowel loops in the left upper quadrant worrisome for small bowel obstruction versus ileus. Chest X-Ray 03/28/19 06:00 IMPRESSION: 1. No definite acute intrathoracic disease. 2. Life support lines and tubes in grossly satisfactory position. Assessment & Plan - Diagnosis (1) Acute hypoxemic respiratory failure Is this a current diagnosis for this admission?: Yes Plan: Patient on mechanical ventilation (2) Alcohol withdrawal Qualifiers: Complication of substance-induced condition: with unspecified complication Qualified Code(s): F10.239 - Alcohol dependence with withdrawal, unspecified Is this a current diagnosis for this admission?: Yes Plan: Continue to monitor mental status (3) COPD (chronic obstructive pulmonary disease) Qualifiers: COPD type: chronic bronchitis Is this a current diagnosis for this admission?: Yes Plan: Patient on long acting beta agonist plus long-acting muscarinic agent - Time Total Critical Time (Minutes): 45 Inpatient Scribe Statement - . Entered by Maribell Mauro, acting as scribe for .
--- NOTE | 2019-03-28 14:18 | PDOC PROGRESS REPORT ---
Subjective Progress Note for:: 03/27/19 Subjective:: Patient re-intubated, currently intubated and sedated. Reason For Visit: SEVERE HYPONATREMIA Physical Exam Vital Signs: Temp Pulse Resp BP Pulse Ox 98.6 F 85 21 H 138/77 H 99 03/28/19 14:00 03/28/19 12:00 03/28/19 14:00 03/28/19 13:48 03/28/19 14:00 Intake & Output 03/27/19 03/28/19 03/29/19 06:59 06:59 06:59 Intake Total 551 3306 3894 Output Total 730 355 125 Balance -179 2951 3769 Weight 51.4 kg 47.6 kg General appearance: PRESENT: no acute distress, thin, well-developed, well- nourished Head exam: PRESENT: atraumatic, normocephalic Eye exam: PRESENT: conjunctiva pink, EOMI, PERRLA. ABSENT: scleral icterus Ear exam: PRESENT: normal external ear exam Mouth exam: PRESENT: moist, tongue midline Neck exam: ABSENT: carotid bruit, JVD, lymphadenopathy, thyromegaly Respiratory exam: PRESENT: decreased breath sounds, prolonged expiratory phas, rales, rhonchi, wheezes Cardiovascular exam: PRESENT: RRR. ABSENT: diastolic murmur, rubs, systolic murmur Pulses: PRESENT: normal dorsalis pedis pul Vascular exam: PRESENT: normal capillary refill GI/Abdominal exam: PRESENT: normal bowel sounds, soft. ABSENT: distended, guarding, mass, organolmegaly, rebound, tenderness Rectal exam: PRESENT: deferred Extremities exam: PRESENT: full ROM. ABSENT: calf tenderness, clubbing, pedal edema Neurological exam: ABSENT: awake Psychiatric exam: PRESENT: appropriate affect, normal mood. ABSENT: homicidal ideation, suicidal ideation Skin exam: PRESENT: dry, intact, warm. ABSENT: cyanosis, rash Results Laboratory Results: 03/28/19 05:50 03/27/19 03/28/19 03/28/19 16:15 05:50 05:50 WBC RBC Hgb Hct MCV MCH MCHC RDW Plt Count Carbonic Acid 0.68 L HCO3/H2CO3 Ratio 32:1 ABG pH 7.60 H* ABG pCO2 22.6 L ABG pO2 125.6 H ABG HCO3 21.8 ABG O2 Saturation 99.0 H ABG Base Excess 0.9 FiO2 40% Sodium 151.0 H Potassium 3.3 L Chloride 110 H Carbon Dioxide 29 Anion Gap 12 BUN 36 H Creatinine 2.32 H Est GFR ( Amer) 35 L Est GFR (Non-Af Amer) 29 L Glucose 207 H Lactic Acid Calcium 9.0 Phosphorus Magnesium Total Bilirubin AST ALT Alkaline Phosphatase Ammonia < 8.7 L Total Protein Albumin 03/28/19 03/28/19 03/28/19 05:50 05:50 06:04 WBC 19.9 H RBC 2.72 L Hgb 8.1 L Hct 24.7 L MCV 91 MCH 29.8 MCHC 32.8 RDW 16.1 H Plt Count 485 H Carbonic Acid HCO3/H2CO3 Ratio ABG pH ABG pCO2 ABG pO2 ABG HCO3 ABG O2 Saturation ABG Base Excess FiO2 Sodium 150.4 H Potassium 3.4 L Chloride 116 H Carbon Dioxide 24 Anion Gap 10 BUN 36 H Creatinine 1.53 H Est GFR ( Amer) 56 L Est GFR (Non-Af Amer) 46 L Glucose 138 H Lactic Acid 1.3 Calcium 8.8 Phosphorus 3.4 Magnesium 2.0 Total Bilirubin 0.3 AST 16 L ALT 21 Alkaline Phosphatase 80 Ammonia Total Protein 5.7 L Albumin 2.6 L 03/15/19 03/15/19 03/21/19 13:23 13:23 03:25 Creatine Kinase 62 CK-MB (CK-2) 2.61 Troponin I 0.014 NT-Pro-B Natriuret Pep 48063 H Impressions: Chest CT 03/22/19 08:22 IMPRESSION: Extensive ground-glass infiltrates. Pulmonary edema versus infection. Significant bilateral pleural effusions. Atherosclerosis. There is a PICC on the right. Head CTA 03/26/19 00:00 IMPRESSION: 1. No acute intracranial pathology. No noncontrast CT evidence of acute stroke or hemorrhage. Small vessel white matter disease. 2. No evidence of intracranial occlusion, stenosis, or aneurysm. 3. There is calcific atherosclerosis of the bilateral internal carotid artery origins with approximately 50% stenosis at the origin of the right internal carotid artery and greater than 70% stenosis of the origin of the left internal carotid artery. EVIDENCE OF ACUTE STROKE: NO. Head CT 03/26/19 09:09 IMPRESSION: 1. No acute intracranial pathology. No noncontrast CT evidence of acute stroke or hemorrhage. Small vessel white matter disease. 2. No evidence of intracranial occlusion, stenosis, or aneurysm. 3. There is calcific atherosclerosis of the bilateral internal carotid artery origins with approximately 50% stenosis at the origin of the right internal carotid artery and greater than 70% stenosis of the origin of the left internal carotid artery. EVIDENCE OF ACUTE STROKE: NO. Neck CTA 03/26/19 09:21 IMPRESSION: 1. No acute intracranial pathology. No noncontrast CT evidence of acute stroke or hemorrhage. Small vessel white matter disease. 2. No evidence of intracranial occlusion, stenosis, or aneurysm. 3. There is calcific atherosclerosis of the bilateral internal carotid artery origins with approximately 50% stenosis at the origin of the right internal carotid artery and greater than 70% stenosis of the origin of the left internal carotid artery. EVIDENCE OF ACUTE STROKE: NO. KUB X-Ray 03/27/19 13:11 IMPRESSION: Nasogastric tube tip and side port in the stomach. Dilated small bowel loops in the left upper quadrant worrisome for small bowel obstruction versus ileus. Chest X-Ray 03/28/19 06:00 IMPRESSION: 1. No definite acute intrathoracic disease. 2. Life support lines and tubes in grossly satisfactory position. Assessment & Plan - Diagnosis (1) Acute hypoxemic respiratory failure Is this a current diagnosis for this admission?: Yes Plan: Patient on mechanical ventilation (2) Alcohol withdrawal Qualifiers: Complication of substance-induced condition: with unspecified complication Qualified Code(s): F10.239 - Alcohol dependence with withdrawal, unspecified Is this a current diagnosis for this admission?: Yes Plan: Continue to monitor mental status (3) COPD (chronic obstructive pulmonary disease) Qualifiers: COPD type: chronic bronchitis Is this a current diagnosis for this admission?: Yes Plan: Patient on long acting beta agonist plus long-acting muscarinic agent - Time Total Critical Time (Minutes): 40 Inpatient Scribe Statement - . Entered by Maribell Mauro, acting as scribe for .
[2019-03-28] MEDS: VANCOMYCIN HCL 750 MG in DEXTROSE 5%-WATER 250 ML IV SCH (17:13)
[2019-03-28] MEDS: AMINO AC/PROTEIN HYDR/WHEY PRO 11 GM/45 ML PKT NG SCH (17:14)
[2019-03-29] MEDS: PROPOFOL 1,000 MG/100 ML INFUS..BTL IV PRN ×2 (00:30→12:39)
[2019-03-29] MEDS: NORMAL SALINE 1000 ML 1,000 ML IV PRN (01:10)
[2019-03-29] MEDS: IPRATROPIUM BROMIDE 0.02% NEB 0.5 MG/2.5 ML AMPUL NEB SCH ×4 (02:03→20:27)
[2019-03-29] MEDS: LEVALBUTEROL HCL NEB 1.25 MG/3 ML AMPUL NEB SCH ×4 (02:03→20:27)
[2019-03-29 03:51] LABS: ARTERIAL BLOOD H2CO3 0.64 mmol/L (1.05-1.35); ARTERIAL BLOOD O2 SATURATION 99.4 % (94-98); ARTERIAL BLOOD PCO2 21.1 mmHg (35-45); ARTERIAL BLOOD PH 7.57 (7.35-7.45); ARTERIAL BLOOD PO2 168.3 mmHg (80-100); ARTERIAL BLOOD TOTAL CO2 19.7 mmol/L (23-27)
[2019-03-29 03:52] LABS: ARTERIAL BLOOD FIO2 40%
[2019-03-29 03:56] LABS: HEMATOCRIT 23.3 % (37.9-51.0); MEAN CORPUSCULAR HEMOGLOBIN 29.6 pg (27.0-33.4); MEAN CORPUSCULAR HGB CONC 32.3 g/dL (32.0-36.0); MEAN CORPUSCULAR VOLUME 92 fl (80-97); PLATELET COUNT 447 10^3/uL (150-450); RED BLOOD COUNT 2.54 10^6/uL (4.35-5.55); WHITE BLOOD COUNT 12.1 10^3/uL (4.0-10.5)
[2019-03-29 04:05] LABS: HEMOGLOBIN 7.5 g/dL (13.5-17.0)
[2019-03-29 04:13] LABS: ABSOLUTE LYMPHOCYTES# (MANUAL) 0.4 10^3/uL (0.5-4.7); ABSOLUTE MONOCYTES # (MANUAL) 0.2 10^3/uL (0.1-1.4); ABSOLUTE NEUTROPHILS# (MANUAL) 11.5 10^3/uL (1.7-8.2); BASOPHILS % (MANUAL) 0 % (0-2); EOSINOPHILS % (MANUAL) 0 % (0-6); LYMPHOCYTES % (MANUAL) 3 % (13-45); MONOCYTES % (MANUAL) 2 % (3-13); PLATELET CLUMPS PRESENT; PLATELET COMMENT ADEQUATE; SEGMENTED NEUTROPHILS % (MAN) 95 % (42-78); TOTAL CELLS COUNTED 100
[2019-03-29 04:14] LABS: HYPOCHROMASIA SLIGHT
[2019-03-29 04:15] LABS: BURR CELLS 1+; OVALOCYTES 1+; SCHISTOCYTES SLIGHT; TARGET CELLS SLIGHT
[2019-03-29] MEDS: DILTIAZEM HCL 30 MG TABLET NG SCH ×3 (06:15→18:22)
[2019-03-29] MEDS: HEPARIN SOD (PORCINE) 5,000 UNIT/ML 1 ML SYRINGE SUBCUT SCH ×3 (06:18→21:14)
[2019-03-29] MEDS: INSULIN LISPRO 100 UNIT/ML 3 ML VIAL SUBCUT SCH ×3 (06:18→18:31)
[2019-03-29] MEDS: METHYLPREDNISOLONE INJ 125 MG/2 ML SDV IV SCH ×3 (06:18→21:13)
[2019-03-29] MEDS: BUDESONIDE NEB 0.5 MG/2 ML AMPUL NEB SCH ×2 (08:07→20:27)
[2019-03-29] MEDS: CEFEPIME 1 GM/D5W RTU 1 GM/50 ML RTUPB IV SCH (12:37)
[2019-03-29] MEDS: POTASSIUM CHLORIDE 20 MEQ PACKET NG SCH ×2 (12:44→18:23)
--- NOTE | 2019-03-29 12:44 | PDOC PROGRESS REPORT ---
Subjective Progress Note for:: 03/29/19 Subjective:: currently intubated and sedated. Reason For Visit: SEVERE HYPONATREMIA Physical Exam Vital Signs: Temp Pulse Resp BP Pulse Ox 99.5 F 84 26 H 174/86 H 98 03/29/19 12:00 03/29/19 12:00 03/29/19 12:00 03/29/19 12:00 03/29/19 12:00 Intake & Output 03/28/19 03/29/19 03/30/19 06:59 06:59 06:59 Intake Total 3306 6415 Output Total 355 1780 400 Balance 2951 4635 -400 Weight 47.6 kg 51.7 kg General appearance: PRESENT: no acute distress, well-developed, well-nourished Head exam: PRESENT: atraumatic, normocephalic Eye exam: PRESENT: conjunctiva pink, EOMI, PERRLA. ABSENT: scleral icterus Ear exam: PRESENT: normal external ear exam Mouth exam: PRESENT: moist, tongue midline Neck exam: ABSENT: carotid bruit, JVD, lymphadenopathy, thyromegaly Respiratory exam: PRESENT: decreased breath sounds, prolonged expiratory phas, symmetrical, tachypnea. ABSENT: rales, rhonchi, wheezes Cardiovascular exam: PRESENT: RRR. ABSENT: diastolic murmur, rubs, systolic murmur Pulses: PRESENT: normal dorsalis pedis pul Vascular exam: PRESENT: normal capillary refill GI/Abdominal exam: PRESENT: normal bowel sounds, soft. ABSENT: distended, guarding, mass, organolmegaly, rebound, tenderness Rectal exam: PRESENT: deferred Extremities exam: PRESENT: full ROM. ABSENT: calf tenderness, clubbing, pedal edema Neurological exam: ABSENT: awake Psychiatric exam: PRESENT: appropriate affect, normal mood. ABSENT: homicidal ideation, suicidal ideation Skin exam: PRESENT: dry, intact, warm. ABSENT: cyanosis, rash Results Laboratory Results: 03/29/19 03:42 03/28/19 13:50 03/28/19 03/29/19 03/29/19 13:50 03:42 03:42 WBC 12.1 H RBC 2.54 L Hgb 7.5 L Hct 23.3 L MCV 92 MCH 29.6 MCHC 32.3 RDW 16.0 H Plt Count 447 Seg Neutrophils % Not Reportable Lymphocytes % Not Reportable Monocytes % Not Reportable Eosinophils % Not Reportable Basophils % Not Reportable Absolute Neutrophils Not Reportable Absolute Lymphocytes Not Reportable Absolute Monocytes Not Reportable Absolute Eosinophils Not Reportable Absolute Basophils Not Reportable Carbonic Acid 0.64 L HCO3/H2CO3 Ratio 29:1 ABG pH 7.57 H ABG pCO2 21.1 L ABG pO2 168.3 H ABG HCO3 19.0 L ABG O2 Saturation 99.4 H ABG Base Excess -3.0 FiO2 40% Potassium 3.9 03/27/19 12:42 Tracheal Aspirate Gram Stain - Final 03/27/19 12:42 Tracheal Aspirate Sputum Culture - Final Mrsa (Meth Resis Staph Aureus) Normal Erica Absent 03/15/19 03/15/19 03/21/19 13:23 13:23 03:25 Creatine Kinase 62 CK-MB (CK-2) 2.61 Troponin I 0.014 NT-Pro-B Natriuret Pep 04111 H Impressions: Chest CT 03/22/19 08:22 IMPRESSION: Extensive ground-glass infiltrates. Pulmonary edema versus infection. Significant bilateral pleural effusions. Atherosclerosis. There is a PICC on the right. Head CTA 03/26/19 00:00 IMPRESSION: 1. No acute intracranial pathology. No noncontrast CT evidence of acute stroke or hemorrhage. Small vessel white matter disease. 2. No evidence of intracranial occlusion, stenosis, or aneurysm. 3. There is calcific atherosclerosis of the bilateral internal carotid artery origins with approximately 50% stenosis at the origin of the right internal carotid artery and greater than 70% stenosis of the origin of the left internal carotid artery. EVIDENCE OF ACUTE STROKE: NO. Head CT 03/26/19 09:09 IMPRESSION: 1. No acute intracranial pathology. No noncontrast CT evidence of acute stroke or hemorrhage. Small vessel white matter disease. 2. No evidence of intracranial occlusion, stenosis, or aneurysm. 3. There is calcific atherosclerosis of the bilateral internal carotid artery origins with approximately 50% stenosis at the origin of the right internal carotid artery and greater than 70% stenosis of the origin of the left internal carotid artery. EVIDENCE OF ACUTE STROKE: NO. Neck CTA 03/26/19 09:21 IMPRESSION: 1. No acute intracranial pathology. No noncontrast CT evidence of acute stroke or hemorrhage. Small vessel white matter disease. 2. No evidence of intracranial occlusion, stenosis, or aneurysm. 3. There is calcific atherosclerosis of the bilateral internal carotid artery origins with approximately 50% stenosis at the origin of the right internal carotid artery and greater than 70% stenosis of the origin of the left internal carotid artery. EVIDENCE OF ACUTE STROKE: NO. KUB X-Ray 03/27/19 13:11 IMPRESSION: Nasogastric tube tip and side port in the stomach. Dilated small bowel loops in the left upper quadrant worrisome for small bowel obstruction versus ileus. Chest X-Ray 03/28/19 06:00 IMPRESSION: 1. No definite acute intrathoracic disease. 2. Life support lines and tubes in grossly satisfactory position. Assessment & Plan - Diagnosis (1) Acute hypoxemic respiratory failure Is this a current diagnosis for this admission?: Yes Plan: Patient on mechanical ventilation (2) Alcohol withdrawal Qualifiers: Complication of substance-induced condition: with unspecified complication Qualified Code(s): F10.239 - Alcohol dependence with withdrawal, unspecified Is this a current diagnosis for this admission?: Yes Plan: Continue to monitor mental status (3) COPD (chronic obstructive pulmonary disease) Qualifiers: COPD type: chronic bronchitis Is this a current diagnosis for this admission?: Yes Plan: Patient on long acting beta agonist plus long-acting muscarinic agent (4) Pneumonia Is this a current diagnosis for this admission?: Yes Plan: Infectious disease consult - Time Total Critical Time (Minutes): 40 Inpatient Scribe Statement - . Entered by Maribell Mauro, acting as scribe for .
[2019-03-29] MEDS: FOLIC ACID 1 MG TABLET NG SCH (12:45)
[2019-03-29] MEDS: ASPIRIN 81 MG TABLET, CHEWABLE NG SCH (12:45)
[2019-03-29] MEDS: THIAMINE HCL 100 MG TABLET NG SCH (12:45)
[2019-03-29] MEDS: PANTOPRAZOLE SODIUM 40 MG VIAL IV SCH (12:52)
[2019-03-29] MEDS ORDERED: NORMAL SALINE 250 ML IV PRN ×2 (17:22)
--- NOTE | 2019-03-29 17:36 | Progress Note ---
Provider Note Provider Note: ID Brief Note Spoke via telephone with Dr. Najera regarding antibiotics active against a respiratory infection with MRSA. Pt has been hospitalized since 03/15 due to severe hyponatremia, alcohol withdrawal/DTs and aspiration pneumonia. He was extubated on 03/20 and required management for electrolyte abnormalities and new onset AF but overall appeared to be improving. However, on 03/27 he developed acute hypoxic respiratory failure with increased work of breathing that required intubation. On 03/27 he had a feve r of 101 F but none since. Plain films of the chest have shown no obvious focal infiltrate. Tracheal aspirate on 03/27 showed growth of MRSA. Impression/Recommendations For an MRSA pneumonia, either IV vancomycin or linezolid should be effective, and there is some suggestion that linezolid may offer an advantage of vancomycin in terms of lung penetration. However, culture growth of MRSA from a respiratory specimen has to be interpreted in terms of the clinical context, as patients can have respiratory colonization without that necessarily indicating infection, and the patient's plain films do not clearly demonstrate a focal infiltrate. Luca Kidd FORMERLY [facility], [facility] Infectious Diseases pager [phone]
[2019-03-29 17:44] LABS: ANION GAP 10 (5-19); BLOOD UREA NITROGEN 28 mg/dL (7-20); CALCIUM 8.8 mg/dL (8.4-10.2); CARBON DIOXIDE 18 mmol/L (22-30); CHLORIDE 119 mmol/L (98-107); GLUCOSE 115 mg/dL (75-110); POTASSIUM 3.1 mmol/L (3.6-5.0); SODIUM 146.7 mmol/L (137-145)
[2019-03-29] MEDS: AMINO AC/PROTEIN HYDR/WHEY PRO 11 GM/45 ML PKT NG SCH (18:22)
[2019-03-29] MEDS: HYDRALAZINE HCL INJ/PF 20 MG/1 ML SDV IV PRN (18:24)
[2019-03-29] MEDS: 1/2 NORMAL SALINE 1,000 ML IV PRN (19:01)
[2019-03-29] MEDS: LINEZOLID 600 MG/300 ML RTUPB IV SCH (21:14)
[2019-03-29] MEDS: HYDRALAZINE HCL 25 MG TABLET NG SCH (21:14)
[2019-03-30] MEDS: INSULIN LISPRO 100 UNIT/ML 3 ML VIAL SUBCUT SCH ×5 (00:24→23:13)
[2019-03-30] MEDS: DILTIAZEM HCL 30 MG TABLET NG SCH ×5 (00:26→23:14)
[2019-03-30] MEDS: LEVALBUTEROL HCL NEB 1.25 MG/3 ML AMPUL NEB SCH ×4 (01:06→19:46)
[2019-03-30] MEDS: IPRATROPIUM BROMIDE 0.02% NEB 0.5 MG/2.5 ML AMPUL NEB SCH ×4 (01:06→19:46)
[2019-03-30] MEDS: HYDRALAZINE HCL INJ/PF 20 MG/1 ML SDV IV PRN ×3 (03:18→23:14)
[2019-03-30] MEDS: 1/2 NORMAL SALINE 1,000 ML IV PRN (04:08)
[2019-03-30] MEDS: PROPOFOL 1,000 MG/100 ML INFUS..BTL IV PRN ×4 (05:29→23:15)
[2019-03-30] MEDS: METHYLPREDNISOLONE INJ 125 MG/2 ML SDV IV SCH ×3 (05:30→21:48)
[2019-03-30] MEDS: HYDRALAZINE HCL 25 MG TABLET NG SCH ×3 (05:31→21:51)
[2019-03-30] MEDS: HEPARIN SOD (PORCINE) 5,000 UNIT/ML 1 ML SYRINGE SUBCUT SCH ×3 (05:32→21:49)
[2019-03-30 06:01] LABS: HEMATOCRIT 33.1 % (37.9-51.0); MEAN CORPUSCULAR HEMOGLOBIN 29.3 pg (27.0-33.4); MEAN CORPUSCULAR HGB CONC 33.1 g/dL (32.0-36.0); PLATELET COUNT 386 10^3/uL (150-450); RED BLOOD COUNT 3.75 10^6/uL (4.35-5.55); RED CELL DISTRIBUTION WIDTH 15.2 % (11.5-14.0); WHITE BLOOD COUNT 16.1 10^3/uL (4.0-10.5)
[2019-03-30 06:04] LABS: ARTERIAL BLOOD BASE EXCESS -4.7 mmol/L; ARTERIAL BLOOD H2CO3 0.65 mmol/L (1.05-1.35); ARTERIAL BLOOD HCO3 16.6 mmol/L (20-24); ARTERIAL BLOOD O2 SATURATION 98.8 % (94-98); ARTERIAL BLOOD PCO2 21.5 mmHg (35-45); ARTERIAL BLOOD PH 7.51 (7.35-7.45); ARTERIAL BLOOD PO2 125.8 mmHg (80-100); ARTERIAL BLOOD TOTAL CO2 17.2 mmol/L (23-27); MEAN CORPUSCULAR VOLUME 88 fl (80-97)
[2019-03-30 06:07] LABS: ARTERIAL BLOOD FIO2 40%
[2019-03-30 06:18] LABS: ANION GAP 9 (5-19); BLOOD UREA NITROGEN 31 mg/dL (7-20); CALCIUM 8.7 mg/dL (8.4-10.2); CARBON DIOXIDE 18 mmol/L (22-30); CHLORIDE 116 mmol/L (98-107); GLUCOSE 125 mg/dL (75-110); PHOSPHORUS 3.9 mg/dL (2.5-4.5); SODIUM 143.4 mmol/L (137-145)
[2019-03-30 06:25] LABS: ABSOLUTE LYMPHOCYTES# (MANUAL) 0.6 10^3/uL (0.5-4.7); ABSOLUTE NEUTROPHILS# (MANUAL) 15.5 10^3/uL (1.7-8.2); ANISOCYTOSIS SLIGHT; BAND NEUTROPHILS % (MANUAL) 3 % (3-5); BASOPHILS % (MANUAL) 0 % (0-2); EOSINOPHILS % (MANUAL) 0 % (0-6); LYMPHOCYTES % (MANUAL) 4 % (13-45); MONOCYTES % (MANUAL) 0 % (3-13); PLATELET COMMENT ADEQUATE; SEGMENTED NEUTROPHILS % (MAN) 93 % (42-78); TOTAL CELLS COUNTED 100; TOXIC GRANULATION SLIGHT
[2019-03-30] MEDS: POTASSIUM CHLORIDE 20 MEQ/50 ML RTU IV SCH ×3 (06:47→18:39)
--- NOTE | 2019-03-30 07:55 | PDOC PROGRESS REPORT ---
Subjective Progress Note for:: 03/29/19 Subjective:: Patient's blood pressure has been elevated but he has been running a normal pulse. He appears comfortable on the vent. Reason For Visit: SEVERE HYPONATREMIA Physical Exam Vital Signs: Temp Pulse Resp BP Pulse Ox 99.5 F 72 18 168/82 H 99 03/29/19 12:00 03/29/19 14:12 03/29/19 14:12 03/29/19 14:00 03/29/19 14:12 Intake & Output 03/28/19 03/29/19 03/30/19 06:59 06:59 06:59 Intake Total 3306 6415 1066 Output Total 355 1780 1000 Balance 2951 4635 66 Weight 47.6 kg 51.7 kg General appearance: PRESENT: no acute distress, well-developed Head exam: PRESENT: atraumatic, normocephalic Ear exam: PRESENT: normal external ear exam Mouth exam: PRESENT: other - ET tube and nasogastric tube in place Respiratory exam: PRESENT: rhonchi - Bilaterally anteriorly, symmetrical, unlabored. ABSENT: accessory muscle use, rales, tachypnea, wheezes Cardiovascular exam: PRESENT: RRR - Heart sounds difficult to auscultate due to congested breath sounds, +S1, +S2 Pulses: PRESENT: normal dorsalis pedis pul. ABSENT: normal radial pulses - Difficult to assess with wrist restraints and hand edema GI/Abdominal exam: PRESENT: normal bowel sounds, soft. ABSENT: distended, tenderness Rectal exam: PRESENT: deferred Gentrourinary exam: PRESENT: indwelling catheter Extremities exam: PRESENT: +1 edema - Bilateral hands. ABSENT: pedal edema Musculoskeletal exam: PRESENT: normal inspection - Except edema Neurological exam: ABSENT: awake Psychiatric exam: ABSENT: agitated, anxious Focused psych exam: ABSENT: restlessness Results Laboratory Results: 03/29/19 03:42 03/28/19 13:50 03/29/19 03/29/19 03:42 03:42 WBC 12.1 H RBC 2.54 L Hgb 7.5 L Hct 23.3 L MCV 92 MCH 29.6 MCHC 32.3 RDW 16.0 H Plt Count 447 Seg Neutrophils % Not Reportable Lymphocytes % Not Reportable Monocytes % Not Reportable Eosinophils % Not Reportable Basophils % Not Reportable Absolute Neutrophils Not Reportable Absolute Lymphocytes Not Reportable Absolute Monocytes Not Reportable Absolute Eosinophils Not Reportable Absolute Basophils Not Reportable Carbonic Acid 0.64 L HCO3/H2CO3 Ratio 29:1 ABG pH 7.57 H ABG pCO2 21.1 L ABG pO2 168.3 H ABG HCO3 19.0 L ABG O2 Saturation 99.4 H ABG Base Excess -3.0 FiO2 40% 03/27/19 12:42 Tracheal Aspirate Gram Stain - Final 03/27/19 12:42 Tracheal Aspirate Sputum Culture - Final Mrsa (Meth Resis Staph Aureus) Normal Erica Absent 03/15/19 03/15/19 03/21/19 13:23 13:23 03:25 Creatine Kinase 62 CK-MB (CK-2) 2.61 Troponin I 0.014 NT-Pro-B Natriuret Pep 16349 H Impressions: Chest CT 03/22/19 08:22 IMPRESSION: Extensive ground-glass infiltrates. Pulmonary edema versus infection. Significant bilateral pleural effusions. Atherosclerosis. There is a PICC on the right. Head CTA 03/26/19 00:00 IMPRESSION: 1. No acute intracranial pathology. No noncontrast CT evidence of acute stroke or hemorrhage. Small vessel white matter disease. 2. No evidence of intracranial occlusion, stenosis, or aneurysm. 3. There is calcific atherosclerosis of the bilateral internal carotid artery origins with approximately 50% stenosis at the origin of the right internal carotid artery and greater than 70% stenosis of the origin of the left internal carotid artery. EVIDENCE OF ACUTE STROKE: NO. Head CT 03/26/19 09:09 IMPRESSION: 1. No acute intracranial pathology. No noncontrast CT evidence of acute stroke or hemorrhage. Small vessel white matter disease. 2. No evidence of intracranial occlusion, stenosis, or aneurysm. 3. There is calcific atherosclerosis of the bilateral internal carotid artery origins with approximately 50% stenosis at the origin of the right internal carotid artery and greater than 70% stenosis of the origin of the left internal carotid artery. EVIDENCE OF ACUTE STROKE: NO. Neck CTA 03/26/19 09:21 IMPRESSION: 1. No acute intracranial pathology. No noncontrast CT evidence of acute stroke or hemorrhage. Small vessel white matter disease. 2. No evidence of intracranial occlusion, stenosis, or aneurysm. 3. There is calcific atherosclerosis of the bilateral internal carotid artery origins with approximately 50% stenosis at the origin of the right internal carotid artery and greater than 70% stenosis of the origin of the left internal carotid artery. EVIDENCE OF ACUTE STROKE: NO. KUB X-Ray 03/27/19 13:11 IMPRESSION: Nasogastric tube tip and side port in the stomach. Dilated small bowel loops in the left upper quadrant worrisome for small bowel obstruction versus ileus. Chest X-Ray 03/28/19 06:00 IMPRESSION: 1. No definite acute intrathoracic disease. 2. Life support lines and tubes in grossly satisfactory position. Assessment and Plan - Diagnosis (1) Encephalopathy Is this a current diagnosis for this admission?: Yes Plan: WORSENING Worse today, patient minimally responsive Head CT, CTA, neck CTA negative for acute stroke, only demonstrates moderate carotid stenosis, no evidence of CVA Altered mental status likely due to untreated MRSA infection Outside of the window for ETOH related seizures Initiated IV vancomycin Mental status not improving, consider EEG to evaluate for subclinical seizures. 03/27/2019-the patient was minimally responsive on admission to the ICU. He is ventilated and on sedation therefore encephalopathy cannot be addressed at this time. 03/28/2019-currently unable to assess 03/29/2019-still sedated. Will better be able to assess once these medications are withdrawn. (2) Acute hypoxemic respiratory failure Is this a current diagnosis for this admission?: Yes Plan: WORSENING Rapid response called today for acute hypoxic respiratory failure Plan to transfer to ICU for intubation today Initially intubated on March 17 due to aspiration pneumonia EtOH withdrawal/DT, extubated on March 20 Currently on BiPAP, settings changed during rapid response to IPAP 20 EPAP 8 FiO2 100% CT chest demonstrates significant bilateral pleural effusions CXR today shows bilateral airspace disease and improving bilateral effusions Continue scheduled and PRN nebulizer treatments 03/27/2019-I was contacted by Nata Vasquez, nurse practitioner. The patient was declining. He was exhibiting decreasing oxygen saturations requiring BiPAP but was still tachypneic. There was noticeably increased work of breathing. Patient was in fact emergently transferred to the ICU. He was immediately intubated. Postintubation he was still tachypneic but with sedation he settled. He exhibited a contraction alkalosis (see below) and was hypotensive with tachycardia. Once intubated his respiratory status stabilized. There was no evidence of pneumonia but the patient did exhibit hyperinflated lungs consistent with COPD. 03/28/2019-appears stable today. We will continue weaning trials. Continue steroids and inhaler therapy as well as antibiotics. 03/29/2019-limited weaning but will continue to try and wean the patient off of the ventilator. (3) Aspiration pneumonia Is this a current diagnosis for this admission?: Yes Plan: Previously believed to be a gram(-) source and treated with Zosyn Clinically the patient appears worse, increasing oxygen requirements, tachypnea, worsening encephalopathy Notified by microbiology today that patient's sputum tested positive for MRSA Discontinued IV Zosyn initiated IV vancomycin 03/27/2019-patient does have a positive sputum for methicillin-resistant staph aureus and has been on vancomycin. However with the possibility of aspiration I have added cefepime. A new culture was sent as there was marked sputum production upon intubation. We will continue dual antibiotic therapy at this time. 03/28/2019-sputum culture again revealing gram-positive cocci in clusters which is likely the MRSA. We will keep the cefepime on board for the time being until final sputum results are available. 03/29/2019-I did discuss the case with Dr. Kidd of the infectious disease service. Because of better lung tissue perfusion we will change to Meenakshi nasal lid. There is no available nebulized antibiotic therapy for MRSA pneumonia. Will discontinue the cefepime. (4) Hypernatremia Is this a current diagnosis for this admission?: Yes Plan: Secondary to dehydration and overcorrection of hyponatremia Previously on hypertonic saline for HYPOnatremia (Na 112) Currently on Normal Saline IVF, will switch to D51/2 NS 03/27/2019-the patient's serum sodium was 153. He was hyponatremic and received hypertonic saline initially. He was on D5 half-normal saline but because of his low blood pressures I did in fact change him to normal saline with fluid boluses. This certainly will not raise his serum sodium and with adequate volume his serum sodium should improve. 03/28/2019-serum sodium is improved slightly. After the current saline infusion is completed I will change him back to half-normal saline. 03/29/2019-the patient is just above the upper limit normal. We will continue half-normal saline at this time and continue to monitor sodium levels. (5) COPD (chronic obstructive pulmonary disease) Qualifiers: Emphysema type: unspecified Is this a current diagnosis for this admission?: Yes Plan: Requiring BiPAP CXR shows complete resolution of bilateral airspace disease and bilateral effusions Scheduled and as needed Xopenex (avoid DuoNeb's due to history of AFIB w/RVR) Scheduled Atrovent 03/27/2019-as noted above the patient is now intubated. Inhaler therapy ins tituted as well as IV steroids. 03/28/2019-currently on IV steroids as well as multiple inhalers. Continue same. 03/29/2019-continue inhalers and steroid therapy. (6) Hypokalemia Is this a current diagnosis for this admission?: Yes Plan: RESOLVED Lasix-induced. Potassium replaced 03/27/2019-the patient will be on the electrolyte replacement protocol. He in fact has received 60 mEq of potassium already today. Continue to follow electrolyte levels and replace as needed. 03/28/2019-continue electrolyte replacement protocol. Potassium was 3.4 this morning. 03/29/2019-still with chronically low potassium. Consider adding potassium to the continuous IV fluids. He is on the electrolyte replacement protocol. (7) New onset atrial fibrillation Is this a current diagnosis for this admission?: Yes Plan: No PMH of atrial fibrillation Currently on Cardizem gtt. unable to transition to p.o. medication due to worsening encephalopathy CHADVASC of at least 1 (HTN) (2 possible CHF, echocardiogram is still pending) Once echocardiogram is resulted, will discuss anticoagulation with family. 03/27/2019-we will review echocardiogram. Currently balancing rate control with his hypotension. Will adjust medications throughout the day accordingly. 03/28/2019-rate is well controlled. Blood pressure is improved. Continue current regimen. He is borderline bradycardic at this time. 03/29/2019-as he exhibits good rate control we will continue his current regimen. (8) Pleural effusion Is this a current diagnosis for this admission?: Yes Plan: Resolved Previously seen on CXR Resolved with IV diuresis 03/27/2019-we will continue to monitor for any recurrence. 03/28/2019-still requiring IV fluids. Monitor for effusion recurrence. 03/29/2019-we will continue to monitor. Correcting the electrolyte disturbances with IV fluids. We will have to balance versus blood pressure and diuresis. (9) Acute kidney failure Qualifiers: Acute renal failure type: unspecified Qualified Code(s): N17.9 - Acute kidney failure, unspecified Is this a current diagnosis for this admission?: Yes Plan: 03/27/2019-likely due to a combination of diuresis and hypoperfusion. As noted above will provide IV hydration and continue to monitor function. 03/28/2019-serum creatinine is down to 1.53 from greater than 2.0. We will continue the fluid regimen as outlined above and monitor renal function. Adjust medications accordingly. 03/29/2019-GFR is now greater than 60 with a normal serum creatinine. BUN is still slightly elevated. We will continue to monitor. (10) Hypertension Qualifiers: Hypertension type: essential hypertension Qualified Code(s): I10 - Essential (primary) hypertension Is this a current diagnosis for this admission?: Yes Plan: 03/29/2019-I placed the patient back on his scheduled hydralazine doses. Continue to monitor pressure. Adjust medications accordingly. - Time Time Spent with patient: 35 or more minutes Medications reviewed and adjusted accordingly: Yes
--- NOTE | 2019-03-30 08:20 | RADIOLOGY REPORT (SQ) ---
EXAM DESCRIPTION: CHEST SINGLE VIEW COMPLETED DATE/TIME: 03/30/2019 6:51 am REASON FOR STUDY: resp failure COMPARISON: 03/28/2019. FINDINGS: Single-view chest AP portable upright. Endotracheal tube, nasogastric tube, right subclavian central line all remain in place and appropriat e. Allowing for external artifacts, the lungs are relatively clear. Stable chest. TECHNICAL DOCUMENTATION: JOB ID: [id number] Reading location - IP/workstation name: [email or web address]
[2019-03-30] MEDS: BUDESONIDE NEB 0.5 MG/2 ML AMPUL NEB SCH ×2 (08:39→19:46)
[2019-03-30] MEDS: PANTOPRAZOLE SODIUM 40 MG VIAL IV SCH (09:30)
[2019-03-30] MEDS: POTASSIUM CHLORIDE 20 MEQ PACKET NG SCH ×2 (09:30→18:17)
[2019-03-30] MEDS: ASPIRIN 81 MG TABLET, CHEWABLE NG SCH (09:31)
[2019-03-30] MEDS: FOLIC ACID 1 MG TABLET NG SCH (09:31)
[2019-03-30] MEDS: THIAMINE HCL 100 MG TABLET NG SCH (09:31)
[2019-03-30] MEDS: LINEZOLID 600 MG/300 ML RTUPB IV SCH ×2 (10:29→21:52)
--- NOTE | 2019-03-30 12:34 | PDOC PROGRESS REPORT ---
Subjective Progress Note for:: 03/30/19 Subjective:: Patient appears to be comfortable on the ventilator. He is trying to open his eyes slightly. Reason For Visit: SEVERE HYPONATREMIA Physical Exam Vital Signs: Temp Pulse Resp BP Pulse Ox 99.0 F 82 21 H 161/78 H 96 03/30/19 10:19 03/30/19 10:00 03/30/19 10:19 03/30/19 10:19 03/30/19 10:19 Intake & Output 03/29/19 03/30/19 03/31/19 06:59 06:59 06:59 Intake Total 6415 4027 104 Output Total 1780 2650 260 Balance 4635 1377 -156 Weight 51.7 kg 52.4 kg General appearance: PRESENT: no acute distress, well-developed Head exam: PRESENT: atraumatic, normocephalic Eye exam: PRESENT: other - Eyes open slightly. Mouth exam: PRESENT: other - Nasogastric and endotracheal tubes in place Respiratory exam: PRESENT: decreased breath sounds - Right base, symmetrical. ABSENT: rales, rhonchi, tachypnea, wheezes Cardiovascular exam: PRESENT: RRR, +S1, +S2, systolic murmur - 2/6 GI/Abdominal exam: PRESENT: hypoactive bowel sounds, soft. ABSENT: distended, tenderness Rectal exam: PRESENT: deferred Gentrourinary exam: PRESENT: indwelling catheter Extremities exam: PRESENT: pedal edema, +2 edema - Arms Neurological exam: PRESENT: awake - Barely. ABSENT: alert - Extremely somnolent Psychiatric exam: ABSENT: agitated Focused psych exam: ABSENT: restlessness Results Laboratory Results: 03/30/19 05:45 03/30/19 05:45 03/29/19 03/29/19 03/30/19 17:00 18:41 05:45 WBC RBC Hgb Hct MCV MCH MCHC RDW Plt Count Seg Neutrophils % Lymphocytes % Monocytes % Eosinophils % Basophils % Absolute Neutrophils Absolute Lymphocytes Absolute Monocytes Absolute Eosinophils Absolute Basophils Carbonic Acid 0.65 L HCO3/H2CO3 Ratio 25:1 ABG pH 7.51 H ABG pCO2 21.5 L ABG pO2 125.8 H ABG HCO3 16.6 L ABG O2 Saturation 98.8 H ABG Base Excess -4.7 FiO2 40% Sodium 146.7 H Potassium 3.1 L Chloride 119 H Carbon Dioxide 18 L Anion Gap 10 BUN 28 H Creatinine 0.80 Est GFR ( Amer) > 60 Est GFR (Non-Af Amer) > 60 Glucose 115 H Calcium 8.8 Phosphorus Magnesium Blood Type O POSITIVE Antibody Screen NEGATIVE 03/30/19 03/30/19 05:45 05:45 WBC 16.1 H RBC 3.75 L Hgb 11.0 L D Hct 33.1 L MCV 88 D MCH 29.3 MCHC 33.1 RDW 15.2 H Plt Count 386 Seg Neutrophils % Not Reportable Lymphocytes % Not Reportable Monocytes % Not Reportable Eosinophils % Not Reportable Basophils % Not Reportable Absolute Neutrophils Not Reportable Absolute Lymphocytes Not Reportable Absolute Monocytes Not Reportable Absolute Eosinophils Not Reportable Absolute Basophils Not Reportable Carbonic Acid HCO3/H2CO3 Ratio ABG pH ABG pCO2 ABG pO2 ABG HCO3 ABG O2 Saturation ABG Base Excess FiO2 Sodium 143.4 Potassium 3.0 L* Chloride 116 H Carbon Dioxide 18 L Anion Gap 9 BUN 31 H Creatinine 0.68 Est GFR ( Amer) > 60 Est GFR (Non-Af Amer) > 60 Glucose 125 H Calcium 8.7 Phosphorus 3.9 Magnesium 1.8 Blood Type Antibody Screen 03/27/19 12:42 Tracheal Aspirate Gram Stain - Final 03/27/19 12:42 Tracheal Aspirate Sputum Culture - Final Mrsa (Meth Resis Staph Aureus) Normal Erica Absent 03/15/19 03/15/19 03/21/19 13:23 13:23 03:25 Creatine Kinase 62 CK-MB (CK-2) 2.61 Troponin I 0.014 NT-Pro-B Natriuret Pep 53644 H Impressions: Chest CT 03/22/19 08:22 IMPRESSION: Extensive ground-glass infiltrates. Pulmonary edema versus infection. Significant bilateral pleural effusions. Atherosclerosis. There is a PICC on the right. Head CTA 03/26/19 00:00 IMPRESSION: 1. No acute intracranial pathology. No noncontrast CT evidence of acute stroke or hemorrhage. Small vessel white matter disease. 2. No evidence of intracranial occlusion, stenosis, or aneurysm. 3. There is calcific atherosclerosis of the bilateral internal carotid artery origins with approximately 50% stenosis at the origin of the right internal carotid artery and greater than 70% stenosis of the origin of the left internal carotid artery. EVIDENCE OF ACUTE STROKE: NO. Head CT 03/26/19 09:09 IMPRESSION: 1. No acute intracranial pathology. No noncontrast CT evidence of acute stroke or hemorrhage. Small vessel white matter disease. 2. No evidence of intracranial occlusion, stenosis, or aneurysm. 3. There is calcific atherosclerosis of the bilateral internal carotid artery origins with approximately 50% stenosis at the origin of the right internal carotid artery and greater than 70% stenosis of the origin of the left internal carotid artery. EVIDENCE OF ACUTE STROKE: NO. Neck CTA 03/26/19 09:21 IMPRESSION: 1. No acute intracranial pathology. No noncontrast CT evidence of acute stroke or hemorrhage. Small vessel white matter disease. 2. No evidence of intracranial occlusion, stenosis, or aneurysm. 3. There is calcific atherosclerosis of the bilateral internal carotid artery o rigins with approximately 50% stenosis at the origin of the right internal carotid artery and greater than 70% stenosis of the origin of the left internal carotid artery. EVIDENCE OF ACUTE STROKE: NO. KUB X-Ray 03/27/19 13:11 IMPRESSION: Nasogastric tube tip and side port in the stomach. Dilated small bowel loops in the left upper quadrant worrisome for small bowel o bstruction versus ileus. Assessment and Plan - Diagnosis (1) Encephalopathy Is this a current diagnosis for this admission?: Yes Plan: WORSENING Worse today, patient minimally responsive Head CT, CTA, neck CTA negative for acute stroke, only demonstrates moderate carotid stenosis, no evidence of CVA Altered mental status likely due to untreated MRSA infection Outside of the window for ETOH related seizures Initiated IV vancomycin Mental status not improving, consider EEG to evaluate for subclinical seizures. 03/27/2019-the patient was minimally responsive on admission to the ICU. He is ventilated and on sedation therefore encephalopathy cannot be addressed at this time. 03/28/2019-currently unable to assess 03/29/2019-still sedated. Will better be able to assess once these medications are withdrawn. 03/30/2019-to assess until off of all sedating medications. (2) Acute hypoxemic respiratory failure Is this a current diagnosis for this admission?: Yes Plan: WORSENING Rapid response called today for acute hypoxic respiratory failure Plan to transfer to ICU for intubation today Initially intubated on March 17 due to aspiration pneumonia EtOH withdrawal/DT, extubated on March 20 Currently on BiPAP, settings changed during rapid response to IPAP 20 EPAP 8 FiO2 100% CT chest demonstrates significant bilateral pleural effusions CXR today shows bilateral airspace disease and improving bilateral effusions Continue scheduled and PRN nebulizer treatments 03/27/2019-I was contacted by Nata Vasquez, nurse practitioner. The patient was declining. He was exhibiting decreasing oxygen saturations requiring BiPAP but was still tachypneic. There was noticeably increased work of breathing. Patient was in fact emergently transferred to the ICU. He was immediately intubated. Postintubation he was still tachypneic but with sedation he settled. He exhibited a contraction alkalosis (see below) and was hypotensive with tachycardia. Once intubated his respiratory status stabilized. There was no evidence of pneumonia but the patient did exhibit hyperinflated lungs consistent with COPD. 03/28/2019-appears stable today. We will continue weaning trials. Continue steroids and inhaler therapy as well as antibiotics. 03/29/2019-limited weaning but will continue to try and wean the patient off of the ventilator. 03/30/2019-continue weaning trials. (3) Aspiration pneumonia Is this a current diagnosis for this admission?: Yes Plan: Previously believed to be a gram(-) source and treated with Zosyn Clinically the patient appears worse, increasing oxygen requirements, tachypnea, worsening encephalopathy Notified by microbiology today that patient's sputum tested positive for MRSA Discontinued IV Zosyn initiated IV vancomycin 03/27/2019-patient does have a positive sputum for methicillin-resistant staph aureus and has been on vancomycin. However with the possibility of aspiration I have added cefepime. A new culture was sent as there was marked sputum production upon intubation. We will continue dual antibiotic therapy at this time. 03/28/2019-sputum culture again revealing gram-positive cocci in clusters which is likely the MRSA. We will keep the cefepime on board for the time being until final sputum results are available. 03/29/2019-I did discuss the case with Dr. Kidd of the infectious disease service. Because of better lung tissue perfusion we will change to Meenakshi nasal lid. There is no available nebulized antibiotic therapy for MRSA pneumonia. Will discontinue the cefepime. 03/30/2019-now on Meenakshi nasal lid. Consider adding a second agent such as trimethoprim sulfamethoxazole or clindamycin. (4) Hypernatremia Is this a current diagnosis for this admission?: Yes Plan: Secondary to dehydration and overcorrection of hyponatremia Previously on hypertonic saline for HYPOnatremia (Na 112) Currently on Normal Saline IVF, will switch to D51/2 NS 03/27/2019-the patient's serum sodium was 153. He was hyponatremic and received hypertonic saline initially. He was on D5 half-normal saline but because of his low blood pressures I did in fact change him to normal saline with fluid boluses. This certainly will not raise his serum sodium and with adequate volume his serum sodium should improve. 03/28/2019-serum sodium is improved slightly. After the current saline infusion is completed I will change him back to half-normal saline. 03/29/2019-the patient is just above the upper limit normal. We will continue half-normal saline at this time and continue to monitor sodium levels. 03/30/2019-sodium is back in the normal range. Continue to monitor. (5) COPD (chronic obstructive pulmonary disease) Qualifiers: Emphysema type: unspecified Is this a current diagnosis for this admission?: Yes Plan: Requiring BiPAP CXR shows complete resolution of bilateral airspace disease and bilateral effusions Scheduled and as needed Xopenex (avoid DuoNeb's due to history of AFIB w/RVR) Scheduled Atrovent 03/27/2019-as noted above the patient is now intubated. Inhaler therapy instituted as well as IV steroids. 03/28/2019-currently on IV steroids as well as multiple inhalers. Continue same. 03/29/2019-continue inhalers and steroid therapy. 03/30/2019-continue steroids and nebulizer therapy. (6) Hypokalemia Is this a current diagnosis for this admission?: Yes Plan: RESOLVED Lasix-induced. Potassium replaced 03/27/2019-the patient will be on the electrolyte replacement protocol. He in fact has received 60 mEq of potassium already today. Continue to follow electrolyte levels and replace as needed. 03/28/2019-continue electrolyte replacement protocol. Potassium was 3.4 this morning. 03/29/2019-still with chronically low potassium. Consider adding potassium to the continuous IV fluids. He is on the electrolyte replacement protocol. 03/30/2019-potassium is low again today. Continue electrolyte protocol. (7) New onset atrial fibrillation Is this a current diagnosis for this admission?: Yes Plan: No PMH of atrial fibrillation Currently on Cardizem gtt. unable to transition to p.o. medication due to worsening encephalopathy CHADVASC of at least 1 (HTN) (2 possible CHF, echocardiogram is still pending) Once echocardiogram is resulted, will discuss anticoagulation with family. 03/27/2019-we will review echocardiogram. Currently balancing rate control with his hypotension. Will adjust medications throughout the day accordingly. 03/28/2019-rate is well controlled. Blood pressure is improved. Continue current regimen. He is borderline bradycardic at this time. 03/29/2019-as he exhibits good rate control we will continue his current regimen. He is in sinus rhythm today. (8) Pleural effusion Is this a current diagnosis for this admission?: Yes Plan: Resolved Previously seen on CXR Resolved with IV diuresis 03/27/2019-we will continue to monitor for any recurrence. 03/28/2019-still requiring IV fluids. Monitor for effusion recurrence. 03/29/2019-we will continue to monitor. Correcting the electrolyte disturbances with IV fluids. We will have to balance versus blood pressure and diuresis. 03/30/2019-still with decreased breath sounds at right base consistent with the effusion. We will continue to monitor. Increase diuresis. (9) Acute kidney failure Qualifiers: Acute renal failure type: unspecified Qualified Code(s): N17.9 - Acute kidney failure, unspecified Is this a current diagnosis for this admission?: Yes Plan: 03/27/2019-likely due to a combination of diuresis and hypoperfusion. As noted above will provide IV hydration and continue to monitor function. 03/28/2019-serum creatinine is down to 1.53 from greater than 2.0. We will continue the fluid regimen as outlined above and monitor renal function. Adjust medications accordingly. 03/29/2019-GFR is now greater than 60 with a normal serum creatinine. BUN is still slightly elevated. We will continue to monitor. 03/30/2019-resolved (10) Hypertension Qualifiers: Hypertension type: essential hypertension Qualified Code(s): I10 - Essential (primary) hypertension Is this a current diagnosis for this admission?: Yes Plan: 03/29/2019-I placed the patient back on his scheduled hydralazine doses. Continue to monitor pressure. Adjust medications accordingly. 03/30/2019-still with elevated systolic pressures. He was just resumed back on his scheduled hydralazine. If his pressure is still high we will add another agent. - Time Time Spent with patient: 25-34 minutes Medications reviewed and adjusted accordingly: Yes
[2019-03-30] MEDS ORDERED: POTASSIUM CHLORIDE 20 MEQ/50 ML RTU IV ONE (14:45)
[2019-03-30] MEDS: AMINO AC/PROTEIN HYDR/WHEY PRO 11 GM/45 ML PKT NG SCH (18:41)
[2019-03-31] MEDS: LEVALBUTEROL HCL NEB 1.25 MG/3 ML AMPUL NEB SCH ×4 (01:34→20:23)
[2019-03-31] MEDS: IPRATROPIUM BROMIDE 0.02% NEB 0.5 MG/2.5 ML AMPUL NEB SCH ×4 (01:34→20:23)
[2019-03-31] MEDS: HYDRALAZINE HCL INJ/PF 20 MG/1 ML SDV IV PRN ×2 (04:18→20:05)
[2019-03-31 04:37] LABS: HEMATOCRIT 34.5 % (37.9-51.0); HEMOGLOBIN 11.6 g/dL (13.5-17.0); MEAN CORPUSCULAR HEMOGLOBIN 29.2 pg (27.0-33.4); MEAN CORPUSCULAR HGB CONC 33.7 g/dL (32.0-36.0); MEAN CORPUSCULAR VOLUME 87 fl (80-97); PLATELET COUNT 341 10^3/uL (150-450); RED BLOOD COUNT 3.98 10^6/uL (4.35-5.55); RED CELL DISTRIBUTION WIDTH 15.5 % (11.5-14.0); WHITE BLOOD COUNT 11.1 10^3/uL (4.0-10.5)
[2019-03-31 04:38] LABS: ARTERIAL BLOOD BASE EXCESS -4.2 mmol/L; ARTERIAL BLOOD H2CO3 0.65 mmol/L (1.05-1.35); ARTERIAL BLOOD HCO3 16.9 mmol/L (20-24); ARTERIAL BLOOD PCO2 21.6 mmHg (35-45); ARTERIAL BLOOD PH 7.51 (7.35-7.45); ARTERIAL BLOOD PO2 132.8 mmHg (80-100); ARTERIAL BLOOD TOTAL CO2 17.6 mmol/L (23-27)
[2019-03-31 04:46] LABS: ARTERIAL BLOOD FIO2 30%
[2019-03-31 04:57] LABS: ABSOLUTE LYMPHOCYTES# (MANUAL) 0.3 10^3/uL (0.5-4.7); ABSOLUTE MONOCYTES # (MANUAL) 0.3 10^3/uL (0.1-1.4); ABSOLUTE NEUTROPHILS# (MANUAL) 10.4 10^3/uL (1.7-8.2); BAND NEUTROPHILS % (MANUAL) 2 % (3-5); BASOPHILS % (MANUAL) 0 % (0-2); EOSINOPHILS % (MANUAL) 0 % (0-6); LYMPHOCYTES % (MANUAL) 3 % (13-45); MONOCYTES % (MANUAL) 3 % (3-13); SEGMENTED NEUTROPHILS % (MAN) 88 % (42-78); TOTAL CELLS COUNTED 100
[2019-03-31 05:01] LABS: ANISOCYTOSIS SLIGHT; HELMET CELLS SLIGHT; POIKILOCYTOSIS 1+; SCHISTOCYTES SLIGHT
[2019-03-31 05:02] LABS: PLATELET COMMENT ADEQUATE
[2019-03-31 05:03] LABS: METAMYELOCYTES % (MANUAL) 3 % (0); MYELOCYTES % (MANUAL) 1 % (0)
[2019-03-31 05:06] LABS: ANION GAP 10 (5-19); BLOOD UREA NITROGEN 25 mg/dL (7-20); CALCIUM 8.5 mg/dL (8.4-10.2); CARBON DIOXIDE 19 mmol/L (22-30); CHLORIDE 109 mmol/L (98-107); GLUCOSE 141 mg/dL (75-110); PHOSPHORUS 3.7 mg/dL (2.5-4.5); POTASSIUM 3.1 mmol/L (3.6-5.0); SODIUM 137.7 mmol/L (137-145)
[2019-03-31] MEDS: METHYLPREDNISOLONE INJ 125 MG/2 ML SDV IV SCH ×3 (05:13→22:23)
[2019-03-31] MEDS: DILTIAZEM HCL 30 MG TABLET NG SCH ×3 (05:13→18:47)
[2019-03-31] MEDS: HYDRALAZINE HCL 25 MG TABLET NG SCH ×3 (05:14→22:23)
[2019-03-31] MEDS: HEPARIN SOD (PORCINE) 5,000 UNIT/ML 1 ML SYRINGE SUBCUT SCH ×3 (05:22→22:23)
[2019-03-31] MEDS: 1/2 NORMAL SALINE 1,000 ML IV PRN ×2 (06:08→19:58)
[2019-03-31] MEDS: INSULIN LISPRO 100 UNIT/ML 3 ML VIAL SUBCUT SCH ×3 (06:08→18:55)
--- NOTE | 2019-03-31 07:39 | RADIOLOGY REPORT (SQ) ---
EXAM DESCRIPTION: XR CHEST 1 VIEW COMPLETED DATE/TME: 03/31/2019 06:00 CLINICAL HISTORY: 63 years Male, resp failure COMPARISON: One day prior. NUMBER OF VIEWS/TECHNIQUE: 1/AP FINDINGS: Prominent interstitium.Atherosclerotic vascular disease. Adequate appearing endotracheal tube. Adequate appearing enteric tube partially obscured. Adequate appearing right subclavian central line. Normal cardiac silhouette size. No pneumothorax. Stable bony thorax. IMPRESSION: No significant change.
[2019-03-31] MEDS: BUDESONIDE NEB 0.5 MG/2 ML AMPUL NEB SCH ×2 (08:40→20:23)
[2019-03-31] MEDS: POTASSIUM CHLORIDE 20 MEQ PACKET NG SCH ×2 (11:02→18:48)
[2019-03-31] MEDS: POTASSIUM CHLORIDE 20 MEQ/50 ML RTU IV SCH ×2 (11:02→12:20)
[2019-03-31] MEDS: ASPIRIN 81 MG TABLET, CHEWABLE NG SCH (11:02)
[2019-03-31] MEDS: THIAMINE HCL 100 MG TABLET NG SCH (11:02)
[2019-03-31] MEDS: LINEZOLID 600 MG/300 ML RTUPB IV SCH ×2 (11:05→22:24)
[2019-03-31] MEDS: FOLIC ACID 1 MG TABLET NG SCH (11:05)
[2019-03-31] MEDS: PROPOFOL 1,000 MG/100 ML INFUS..BTL IV PRN (12:19)
--- NOTE | 2019-03-31 15:12 | PDOC PROGRESS REPORT ---
Subjective Progress Note for:: 03/31/19 Subjective:: Patient remains intubated. He appears flushed today. Reason For Visit: SEVERE HYPONATREMIA Physical Exam Vital Signs: Temp Pulse Resp BP Pulse Ox 97.9 F 59 L 16 159/86 H 97 03/31/19 14:00 03/31/19 14:08 03/31/19 14:08 03/31/19 13:20 03/31/19 14:08 Intake & Output 03/30/19 03/31/19 04/01/19 06:59 06:59 06:59 Intake Total 4027 1927 211 Output Total 2650 2200 285 Balance 7956 -273 -13 Weight 52.4 kg 52.8 kg General appearance: PRESENT: no acute distress, well-developed Head exam: PRESENT: atraumatic, normocephalic Ear exam: PRESENT: normal external ear exam Mouth exam: PRESENT: other - Nasogastric and endotracheal tubes in place Respiratory exam: PRESENT: clear to auscultation pierre, symmetrical. ABSENT: rales, rhonchi, wheezes Cardiovascular exam: PRESENT: RRR, +S1, +S2 GI/Abdominal exam: PRESENT: normal bowel sounds, soft. ABSENT: distended, te nderness Rectal exam: PRESENT: deferred Gentrourinary exam: PRESENT: indwelling catheter Extremities exam: ABSENT: pedal edema Neurological exam: ABSENT: awake Psychiatric exam: ABSENT: agitated Focused psych exam: ABSENT: restlessness Skin exam: PRESENT: other - Some facial flushing today Results Laboratory Results: 03/31/19 04:25 03/31/19 04:25 03/31/19 03/31/19 03/31/19 04:25 04:25 04:25 WBC 11.1 H RBC 3.98 L Hgb 11.6 L Hct 34.5 L MCV 87 MCH 29.2 MCHC 33.7 RDW 15.5 H Plt Count 341 Seg Neutrophils % Not Reportable Lymphocytes % Not Reportable Monocytes % Not Reportable Eosinophils % Not Reportable Basophils % Not Reportable Absolute Neutrophils Not Reportable Absolute Lymphocytes Not Reportable Absolute Monocytes Not Reportable Absolute Eosinophils Not Reportable Absolute Basophils Not Reportable Carbonic Acid 0.65 L HCO3/H2CO3 Ratio 26:1 ABG pH 7.51 H ABG pCO2 21.6 L ABG pO2 132.8 H ABG HCO3 16.9 L ABG O2 Saturation 99.0 H ABG Base Excess -4.2 FiO2 30% Sodium 137.7 Potassium 3.1 L Chloride 109 H Carbon Dioxide 19 L Anion Gap 10 BUN 25 H Creatinine 0.64 Est GFR ( Amer) > 60 Est GFR (Non-Af Amer) > 60 Glucose 141 H Calcium 8.5 Phosphorus 3.7 Magnesium 1.8 03/15/19 03/15/19 03/21/19 13:23 13:23 03:25 Creatine Kinase 62 CK-MB (CK-2) 2.61 Troponin I 0.014 NT-Pro-B Natriuret Pep 13492 H Impressions: Chest CT 03/22/19 08:22 IMPRESSION: Extensive ground-glass infiltrates. Pulmonary edema versus infection. Significant bilateral pleural effusions. Atherosclerosis. There is a PICC on the right. Head CTA 03/26/19 00:00 IMPRESSION: 1. No acute intracranial pathology. No noncontrast CT evidence of acute stroke or hemorrhage. Small vessel white matter disease. 2. No evidence of intracranial occlusion, stenosis, or aneurysm. 3. There is calcific atherosclerosis of the bilateral internal carotid artery origins with approximately 50% stenosis at the origin of the right internal carotid artery and greater than 70% stenosis of the origin of the left internal carotid artery. EVIDENCE OF ACUTE STROKE: NO. Head CT 03/26/19 09:09 IMPRESSION: 1. No acute intracranial pathology. No noncontrast CT evidence of acute stroke or hemorrhage. Small vessel white matter disease. 2. No evidence of intracranial occlusion, stenosis, or aneurysm. 3. There is calcific atherosclerosis of the bilateral internal carotid artery origins with approximately 50% stenosis at the origin of the right internal carotid artery and greater than 70% stenosis of the origin of the left internal carotid artery. EVIDENCE OF ACUTE STROKE: NO. Neck CTA 03/26/19 09:21 IMPRESSION: 1. No acute intracranial pathology. No noncontrast CT evidence of acute stroke or hemorrhage. Small vessel white matter disease. 2. No evidence of intracranial occlusion, stenosis, or aneurysm. 3. There is calcific atherosclerosis of the bilateral internal carotid artery origins with approximately 50% stenosis at the origin of the right internal carotid artery and greater than 70% stenosis of the origin of the left internal carotid artery. EVIDENCE OF ACUTE STROKE: NO. KUB X-Ray 03/27/19 13:11 IMPRESSION: Nasogastric tube tip and side port in the stomach. Dilated small bowel loops in the left upper quadrant worrisome for small bowel obstruction versus ileus. Chest X-Ray 03/31/19 06:00 IMPRESSION: No significant change. Assessment and Plan - Diagnosis (1) Encephalopathy Is this a current diagnosis for this admission?: Yes Plan: WORSENING Worse today, patient minimally responsive Head CT, CTA, neck CTA negative for acute stroke, only demonstrates moderate carotid stenosis, no evidence of CVA Altered mental status likely due to untreated MRSA infection Outside of the window for ETOH related seizures Initiated IV vancomycin Mental status not improving, consider EEG to evaluate for subclinical seizures. 03/27/2019-the patient was minimally responsive on admission to the ICU. He is ventilated and on sedation therefore encephalopathy cannot be addressed at this time. 03/28/2019-currently unable to assess 03/29/2019-still sedated. Will better be able to assess once these medications are withdrawn. 03/30/2019-to assess until off of all sedating medications. March 31, 2019-as above (2) Acute hypoxemic respiratory failure Is this a current diagnosis for this admission?: Yes Plan: WORSENING Rapid response called today for acute hypoxic respiratory failure Plan to transfer to ICU for intubation today Initially intubated on March 17 due to aspiration pneumonia EtOH withdrawal/DT, extubated on March 20 Currently on BiPAP, settings changed during rapid response to IPAP 20 EPAP 8 FiO2 100% CT chest demonstrates significant bilateral pleural effusions CXR today shows bilateral airspace disease and improving bilateral effusions Continue scheduled and PRN nebulizer treatments 03/27/2019-I was contacted by Nata Vasquez, nurse practitioner. The patient was declining. He was exhibiting decreasing oxygen saturations requiring BiPAP but was still tachypneic. There was noticeably increased work of breathing. Patient was in fact emergently transferred to the ICU. He was immediately intubated. Postintubation he was still tachypneic but with sedation he settled. He exhibited a contraction alkalosis (see below) and was hypotensive with tachycardia. Once intubated his respiratory status stabilized. There was no evidence of pneumonia but the patient did exhibit hyperinflated lungs consistent with COPD. 03/28/2019-appears stable today. We will continue weaning trials. Continue steroids and inhaler therapy as well as antibiotics. 03/29/2019-limited weaning but will continue to try and wean the patient off of the ventilator. 03/30/2019-continue weaning trials. March 31 2019-continue to try sedation vacation with weaning. (3) Aspiration pneumonia Is this a current diagnosis for this admission?: Yes Plan: Previously believed to be a gram(-) source and treated with Zosyn Clinically the patient appears worse, increasing oxygen requirements, tachypnea, worsening encephalopathy Notified by microbiology today that patient's sputum tested positive for MRSA Discontinued IV Zosyn initiated IV vancomycin 03/27/2019-patient does have a positive sputum for methicillin-resistant staph aureus and has been on vancomycin. However with the possibility of aspiration I have added cefepime. A new culture was sent as there was marked sputum production upon intubation. We will continue dual antibiotic therapy at this time. 03/28/2019-sputum culture again revealing gram-positive cocci in clusters which is likely the MRSA. We will keep the cefepime on board for the time being until final sputum results are available. 03/29/2019-I did discuss the case with Dr. Kidd of the infectious disease service. Because of better lung tissue perfusion we will change to Meenakshi nasal lid. There is no available nebulized antibiotic therapy for MRSA pneumonia. Will discontinue the cefepime. 03/30/2019-now on Meenakshi nasal lid. Consider adding a second agent such as trimethoprim sulfamethoxazole or clindamycin. March 31, 2019-currently on Zyvox and consider adding a second agent. White blood cell count continues to improve. Lungs sound clear. (4) Hypernatremia Is this a current diagnosis for this admission?: Yes Plan: Secondary to dehydration and overcorrection of hyponatremia Previously on hypertonic saline for HYPOnatremia (Na 112) Currently on Normal Saline IVF, will switch to D51/2 NS 03/27/2019-the patient's serum sodium was 153. He was hyponatremic and received hypertonic saline initially. He was on D5 half-normal saline but because of his low blood pressures I did in fact change him to normal saline with fluid boluses. This certainly will not raise his serum sodium and with adequate volume his serum sodium should improve. 03/28/2019-serum sodium is improved slightly. After the current saline infusion is completed I will change him back to half-normal saline. 03/29/2019-the patient is just above the upper limit normal. We will continue half-normal saline at this time and continue to monitor sodium levels. 03/30/2019-sodium is back in the normal range. Continue to monitor. (5) COPD (chronic obstructive pulmonary disease) Qualifiers: Emphysema type: unspecified Is this a current diagnosis for this admission?: Yes Plan: Requiring BiPAP CXR shows complete resolution of bilateral airspace disease and bilateral effusions Scheduled and as needed Xopenex (avoid DuoNeb's due to history of AFIB w/RVR) Scheduled Atrovent 03/27/2019-as noted above the patient is now intubated. Inhaler therapy instituted as well as IV steroids. 03/28/2019-currently on IV steroids as well as multiple inhalers. Continue same. 03/29/2019-continue inhalers and steroid therapy. 03/30/2019-continue steroids and nebulizer therapy. March 31, 2019-currently on nebulizers and steroids. Once extubated will exchange for inhalers. (6) Hypokalemia Is this a current diagnosis for this admission?: Yes Plan: RESOLVED Lasix-induced. Potassium replaced 03/27/2019-the patient will be on the electrolyte replacement protocol. He in fact has received 60 mEq of potassium already today. Continue to follow electrolyte levels and replace as needed. 03/28/2019-continue electrolyte replacement protocol. Potassium was 3.4 this morning. 03/29/2019-still with chronically low potassium. Consider adding potassium to the continuous IV fluids. He is on the electrolyte replacement protocol. 03/30/2019-potassium is low again today. Continue electrolyte protocol. March 31, 2019-I will increase the scheduled potassium through the nasogastric tube and continue the electrolyte protocol. (7) New onset atrial fibrillation Is this a current diagnosis for this admission?: Yes Plan: No PMH of atrial fibrillation Currently on Cardizem gtt. unable to transition to p.o. medication due to w orsening encephalopathy CHADVASC of at least 1 (HTN) (2 possible CHF, echocardiogram is still pending) Once echocardiogram is resulted, will discuss anticoagulation with family. 03/27/2019-we will review echocardiogram. Currently balancing rate control with his hypotension. Will adjust medications throughout the day accordingly. 03/28/2019-rate is well controlled. Blood pressure is improved. Continue current regimen. He is borderline bradycardic at this time. 03/29/2019-as he exhibits good rate control we will continue his current regimen. He is in sinus rhythm today. March 31, 2019-appears to be in sinus rhythm. Rate is in the 60s. Currently no need for anticoagulation. (8) Pleural effusion Is this a current diagnosis for this admission?: Yes Plan: Resolved Previously seen on CXR Resolved with IV diuresis 03/27/2019-we will continue to monitor for any recurrence. 03/28/2019-still requiring IV fluids. Monitor for effusion recurrence. 03/29/2019-we will continue to monitor. Correcting the electrolyte disturbances with IV fluids. We will have to balance versus blood pressure and diuresis. 03/30/2019-still with decreased breath sounds at right base consistent with the effusion. We will continue to monitor. Increase diuresis. By x-ray, and exam, the effusion seems resolved. Consider decreasing furosemide. (9) Acute kidney failure Qualifiers: Acute renal failure type: unspecified Qualified Code(s): N17.9 - Acute kidney failure, unspecified Is this a current diagnosis for this admission?: Yes Plan: 03/27/2019-likely due to a combination of diuresis and hypoperfusion. As noted above will provide IV hydration and continue to monitor function. 03/28/2019-serum creatinine is down to 1.53 from greater than 2.0. We will continue the fluid regimen as outlined above and monitor renal function. Adjust medications accordingly. 03/29/2019-GFR is now greater than 60 with a normal serum creatinine. BUN is still slightly elevated. We will continue to monitor. 03/30/2019-resolved March 31, 2019-resolved. (10) Hypertension Qualifiers: Hypertension type: essential hypertension Qualified Code(s): I10 - Essential (primary) hypertension Is this a current diagnosis for this admission?: Yes Plan: 03/29/2019-I placed the patient back on his scheduled hydralazine doses. Continue to monitor pressure. Adjust medications accordingly. 03/30/2019-still with elevated systolic pressures. He was just resumed back on his scheduled hydralazine. If his pressure is still high we will add another agent. March 31, 2019-blood pressure still slightly elevated. We will add 5 mg of lisinopril daily. - Time Time Spent with patient: 15-24 minutes Medications reviewed and adjusted accordingly: Yes
[2019-03-31] MEDS: AMINO AC/PROTEIN HYDR/WHEY PRO 11 GM/45 ML PKT NG SCH (18:48)
[2019-04-01] MEDS: IPRATROPIUM BROMIDE 0.02% NEB 0.5 MG/2.5 ML AMPUL NEB SCH ×4 (01:19→20:50)
[2019-04-01] MEDS: LEVALBUTEROL HCL NEB 1.25 MG/3 ML AMPUL NEB SCH ×4 (01:19→20:50)
[2019-04-01] MEDS: DILTIAZEM HCL 30 MG TABLET NG SCH ×5 (01:25→23:03)
[2019-04-01] MEDS: INSULIN LISPRO 100 UNIT/ML 3 ML VIAL SUBCUT SCH ×5 (01:28→23:53)
[2019-04-01] MEDS: PROPOFOL 1,000 MG/100 ML INFUS..BTL IV PRN ×3 (01:28→22:55)
[2019-04-01 04:28] LABS: HEMATOCRIT 35.6 % (37.9-51.0); HEMOGLOBIN 11.9 g/dL (13.5-17.0); MEAN CORPUSCULAR HEMOGLOBIN 29.2 pg (27.0-33.4); MEAN CORPUSCULAR HGB CONC 33.5 g/dL (32.0-36.0); MEAN CORPUSCULAR VOLUME 87 fl (80-97); PLATELET COUNT 332 10^3/uL (150-450); RED BLOOD COUNT 4.08 10^6/uL (4.35-5.55); RED CELL DISTRIBUTION WIDTH 15.5 % (11.5-14.0); WHITE BLOOD COUNT 11.9 10^3/uL (4.0-10.5)
[2019-04-01 04:31] LABS: ARTERIAL BLOOD BASE EXCESS -3.3 mmol/L; ARTERIAL BLOOD H2CO3 0.57 mmol/L (1.05-1.35); ARTERIAL BLOOD HCO3 16.5 mmol/L (20-24); ARTERIAL BLOOD O2 SATURATION 99.1 % (94-98); ARTERIAL BLOOD PH 7.56 (7.35-7.45); ARTERIAL BLOOD PO2 136.8 mmHg (80-100); ARTERIAL BLOOD TOTAL CO2 17.1 mmol/L (23-27)
[2019-04-01 04:39] LABS: ARTERIAL BLOOD FIO2 4 L
[2019-04-01 04:41] LABS: ABSOLUTE LYMPHOCYTES# (MANUAL) 0.6 10^3/uL (0.5-4.7); ABSOLUTE MONOCYTES # (MANUAL) 0.6 10^3/uL (0.1-1.4); ABSOLUTE NEUTROPHILS# (MANUAL) 10.7 10^3/uL (1.7-8.2); ARTERIAL BLOOD PCO2 18.8 mmHg (35-45); BAND NEUTROPHILS % (MANUAL) 4 % (3-5); BASOPHILS % (MANUAL) 0 % (0-2); EOSINOPHILS % (MANUAL) 0 % (0-6); LYMPHOCYTES % (MANUAL) 5 % (13-45); MONOCYTES % (MANUAL) 5 % (3-13); SEGMENTED NEUTROPHILS % (MAN) 81 % (42-78); TOTAL CELLS COUNTED 100
[2019-04-01 04:43] LABS: ANISOCYTOSIS 1+; BURR CELLS 1+; PLATELET CLUMPS PRESENT
[2019-04-01 04:44] LABS: METAMYELOCYTES % (MANUAL) 3 % (0)
[2019-04-01 04:45] LABS: MYELOCYTES % (MANUAL) 2 % (0)
[2019-04-01 04:46] LABS: ANION GAP 10 (5-19); BLOOD UREA NITROGEN 27 mg/dL (7-20); CALCIUM 8.5 mg/dL (8.4-10.2); CARBON DIOXIDE 18 mmol/L (22-30); CHLORIDE 106 mmol/L (98-107); GLUCOSE 138 mg/dL (75-110); POTASSIUM 3.3 mmol/L (3.6-5.0); SODIUM 134.4 mmol/L (137-145)
[2019-04-01] MEDS: 1/2 NORMAL SALINE 1,000 ML IV PRN ×2 (05:00→19:55)
[2019-04-01] MEDS: HYDRALAZINE HCL 25 MG TABLET NG SCH ×3 (06:08→21:46)
[2019-04-01] MEDS: HEPARIN SOD (PORCINE) 5,000 UNIT/ML 1 ML SYRINGE SUBCUT SCH ×3 (06:10→21:45)
[2019-04-01] MEDS: METHYLPREDNISOLONE INJ 125 MG/2 ML SDV IV SCH ×3 (06:16→21:45)
[2019-04-01] MEDS: HYDRALAZINE HCL INJ/PF 20 MG/1 ML SDV IV PRN (07:00)
[2019-04-01] MEDS: BUDESONIDE NEB 0.5 MG/2 ML AMPUL NEB SCH ×2 (08:24→20:50)
[2019-04-01] MEDS: LINEZOLID 600 MG/300 ML RTUPB IV SCH ×2 (11:59→21:45)
[2019-04-01] MEDS: POTASSI CL 20 MEQ/50 ML RIDER 20 MEQ/50 ML RTUPB IV SCH ×3 (11:59→18:07)
[2019-04-01] MEDS: FOLIC ACID 1 MG TABLET NG SCH (12:00)
[2019-04-01] MEDS: THIAMINE HCL 100 MG TABLET NG SCH (12:00)
[2019-04-01] MEDS: LISINOPRIL 5 MG TABLET NG SCH (12:00)
[2019-04-01] MEDS: ASPIRIN 81 MG TABLET, CHEWABLE NG SCH (12:01)
[2019-04-01] MEDS: POTASSIUM CHLORIDE 20 MEQ PACKET NG SCH ×4 (12:01→23:03)
[2019-04-01 12:12] LABS: ARTERIAL BLOOD BASE EXCESS -1.7 mmol/L; ARTERIAL BLOOD H2CO3 0.64 mmol/L (1.05-1.35); ARTERIAL BLOOD HCO3 18.2 mmol/L (20-24); ARTERIAL BLOOD O2 SATURATION 98.3 % (94-98); ARTERIAL BLOOD PCO2 21.3 mmHg (35-45); ARTERIAL BLOOD PH 7.55 (7.35-7.45); ARTERIAL BLOOD PO2 99.4 mmHg (80-100); ARTERIAL BLOOD TOTAL CO2 18.9 mmol/L (23-27)
[2019-04-01 12:13] LABS: ARTERIAL BLOOD FIO2 21%
[2019-04-01 13:46] LABS: PATH REVIEW PATHOLOGIST REVIEWED
[2019-04-01] MEDS: AMINO AC/PROTEIN HYDR/WHEY PRO 11 GM/45 ML PKT NG SCH (19:54)
[2019-04-01] MEDS: POTASSIUM CHLORIDE 20 MEQ/50 ML RTU IV SCH (22:26)
[2019-04-02] MEDS: IPRATROPIUM BROMIDE 0.02% NEB 0.5 MG/2.5 ML AMPUL NEB SCH ×4 (02:31→22:04)
[2019-04-02] MEDS: LEVALBUTEROL HCL NEB 1.25 MG/3 ML AMPUL NEB SCH ×4 (02:31→22:03)
[2019-04-02 03:52] LABS: ARTERIAL BLOOD BASE EXCESS -3.4 mmol/L; ARTERIAL BLOOD H2CO3 0.56 mmol/L (1.05-1.35); ARTERIAL BLOOD HCO3 16.3 mmol/L (20-24); ARTERIAL BLOOD O2 SATURATION 98.5 % (94-98); ARTERIAL BLOOD PH 7.56 (7.35-7.45); ARTERIAL BLOOD PO2 104.5 mmHg (80-100); ARTERIAL BLOOD TOTAL CO2 16.9 mmol/L (23-27)
[2019-04-02 03:55] LABS: ARTERIAL BLOOD FIO2 21%
[2019-04-02 03:57] LABS: ARTERIAL BLOOD PCO2 18.5 mmHg (35-45)
[2019-04-02 04:10] LABS: HEMATOCRIT 36.6 % (37.9-51.0); HEMOGLOBIN 12.3 g/dL (13.5-17.0); MEAN CORPUSCULAR HEMOGLOBIN 29.1 pg (27.0-33.4); MEAN CORPUSCULAR HGB CONC 33.6 g/dL (32.0-36.0); MEAN CORPUSCULAR VOLUME 87 fl (80-97); RED BLOOD COUNT 4.22 10^6/uL (4.35-5.55); RED CELL DISTRIBUTION WIDTH 15.1 % (11.5-14.0); WHITE BLOOD COUNT 15.4 10^3/uL (4.0-10.5)
[2019-04-02 04:12] LABS: ANION GAP 10 (5-19); BLOOD UREA NITROGEN 30 mg/dL (7-20); CALCIUM 8.5 mg/dL (8.4-10.2); CARBON DIOXIDE 17 mmol/L (22-30); CHLORIDE 105 mmol/L (98-107); GLUCOSE 133 mg/dL (75-110); PHOSPHORUS 3.2 mg/dL (2.5-4.5); POTASSIUM 3.8 mmol/L (3.6-5.0); SODIUM 131.6 mmol/L (137-145)
[2019-04-02] MEDS: PROPOFOL 1,000 MG/100 ML INFUS..BTL IV PRN ×4 (04:30→19:31)
[2019-04-02 04:38] LABS: ABSOLUTE LYMPHOCYTES# (MANUAL) 0.8 10^3/uL (0.5-4.7); ABSOLUTE MONOCYTES # (MANUAL) 0.6 10^3/uL (0.1-1.4); BAND NEUTROPHILS % (MANUAL) 1 % (3-5); BASOPHILS % (MANUAL) 0 % (0-2); EOSINOPHILS % (MANUAL) 0 % (0-6); LYMPHOCYTES % (MANUAL) 5 % (13-45); METAMYELOCYTES % (MANUAL) 1 % (0); MONOCYTES % (MANUAL) 4 % (3-13); MYELOCYTES % (MANUAL) 3 % (0); SEGMENTED NEUTROPHILS % (MAN) 86 % (42-78); TOTAL CELLS COUNTED 100
[2019-04-02 04:41] LABS: ANISOCYTOSIS SLIGHT; BURR CELLS 3+; POIKILOCYTOSIS 1+
[2019-04-02 04:42] LABS: HELMET CELLS SLIGHT; OVALOCYTES 1+; PLATELET CLUMPS PRESENT; PLATELET COMMENT ADEQUATE; PLATELET COUNT 365 10^3/uL (150-450); TARGET CELLS SLIGHT
[2019-04-02] MEDS: 1/2 NORMAL SALINE 1,000 ML IV PRN ×3 (05:03→21:53)
[2019-04-02] MEDS: POTASSIUM CHLORIDE 20 MEQ PACKET NG SCH ×4 (05:05→23:29)
[2019-04-02] MEDS: METHYLPREDNISOLONE INJ 125 MG/2 ML SDV IV SCH ×3 (05:05→21:54)
[2019-04-02] MEDS: HEPARIN SOD (PORCINE) 5,000 UNIT/ML 1 ML SYRINGE SUBCUT SCH ×3 (05:06→21:54)
[2019-04-02] MEDS: DILTIAZEM HCL 30 MG TABLET NG SCH ×4 (05:06→23:29)
[2019-04-02] MEDS: HYDRALAZINE HCL 25 MG TABLET NG SCH ×3 (05:07→21:54)
[2019-04-02] MEDS: INSULIN LISPRO 100 UNIT/ML 3 ML VIAL SUBCUT SCH ×4 (05:37→23:49)
--- NOTE | 2019-04-02 07:46 | RADIOLOGY REPORT (SQ) ---
EXAM DESCRIPTION: XR CHEST 1 VIEW COMPLETED DATE/TME: 04/02/2019 06:00 CLINICAL HISTORY: 63 years Male, pna/rsp failure COMPARISON: 2 days prior. NUMBER OF VIEWS/TECHNIQUE: 1/AP FINDINGS: Mild hazy opacity-effusion of bilateral lower hemithoraces.Adequate appearing endotracheal tube. Adequate appearing enteric tube partially obscured. Adequate appearing right subclavian central line. Atherosclerotic vascular disease. Normal cardiac silhouette size. No pneumothorax. Stable bony thorax. IMPRESSION: No significant change.
[2019-04-02] MEDS: BUDESONIDE NEB 0.5 MG/2 ML AMPUL NEB SCH ×2 (08:23→22:04)
[2019-04-02] MEDS: AMINO AC/PROTEIN HYDR/WHEY PRO 11 GM/45 ML PKT NG SCH ×2 (09:17→17:04)
[2019-04-02] MEDS: LISINOPRIL 5 MG TABLET NG SCH (09:17)
[2019-04-02] MEDS: LINEZOLID 600 MG/300 ML RTUPB IV SCH ×2 (09:17→21:55)
[2019-04-02] MEDS: THIAMINE HCL 100 MG TABLET NG SCH (09:18)
[2019-04-02] MEDS: ASPIRIN 81 MG TABLET, CHEWABLE NG SCH (09:18)
[2019-04-02] MEDS: FOLIC ACID 1 MG TABLET NG SCH (09:18)
[2019-04-02] MEDS: PANTOPRAZOLE SODIUM 40 MG VIAL IV SCH (11:45)
--- NOTE | 2019-04-02 16:47 | PDOC PROGRESS REPORT ---
Subjective Progress Note for:: 04/02/19 Subjective:: This is a 63 yr old male who was admitted for acute encpehalopathy. He was found to have severe hyponatremia and was started on hypertonic saline. He went into acute respiratory failure deeemd to be from likely aspiration pneumonia and DTs and was intubated on 03/17. He was extubated on 03/20. 03/22: Patient was downgraded from ICU last night. This morning around 6 AM, patient went into AFib with RVR. Apparently, he was given 2 doses of IV Lopressor but he had persistent AFib in the 140s. Upon initial encounter, patient is still in AFib. He is slightly tachpyneic and has significant rales bilaterally with decreased breath sounds on the bases. He will be started on Cardizem drip and will be upgraded to IMCU. Chest x-ray yesterday appears to show worsening airspace disease and pleural effusions. Will pursue a chest CT. 2 PM: Patient reassessed. He is now in normal sinus rhythm on minimal Cardizem infusion (2.5). He appears to be breathing better and is saturating well on 4 [address] NC[address] Chest CT shows significant pleural effusions bilaterally. He has been on Rocephin. Switch to Zosyn. Possible acute congestive heart failure. Start IV Lasix. Replace Potassium as needed. Will consult radiology if there is no improvement in pleural effusions with diuresis. Speech therapist has recommended keeping patient NPO over the next few days. 03/23: He remains on NSR on cardizem drip. He appears more conversant today and says he wants water but is not well oriented. Weaned off BIPAP and he is now saturating well on nasal cannula. He has diuresed well overnight. Will repeat CXR today to reassess effusions. Able to contact patient's son, Rohith who was updated about patient's status and plan of care. Discussed anticoagulation and he says he would have to discuss this further with his sister/DPMIHAI who is unreachable at the moment. 03/24: Currently on sinus rhythm on cardizem drip. He remains NPO until reassessment by speech tomorrow. He had significant improvement with aggressive diuresis. Repeat chest x-ray shows significant improvement of airspace disease with IV Lasix in 24 hrs. 03/25: No acute event overnight. He continues to improve significantly. He is more awake and alert today but appears deconditioned. He is comfortable and is saturating well on nasal cannula. Repeat CXR shows near complete resolution of bilateral airspace disease and bilateral effusions. Apparently we don't have speech therapy services today and he will be re-evaluated by speech tomorrow. Until then, he will remain NPO and will continue IV medications. He is currently in sinus rhythm on minimal dose of cardizem infusion. Lasix has been decreased to 40 mg daily. May be decreased further or discontinued in the next 24-28 hrs. 04/02: Reassume care today. Patient apparently went into acute respiratory failure on 03/27. He was noted to be tachypneic and became unresponsive hence was reintubated. Repeat chest x-ray then showed basilar opacities. There is a question if patient might have aspirated. He is currently sedated and is saturating well on minimal vent settings at 21% FiO2. Reason For Visit: SEVERE HYPONATREMIA Physical Exam Vital Signs: Temp Pulse Resp BP Pulse Ox 97.0 F 87 20 147/85 H 93 04/02/19 12:00 04/02/19 12:00 04/02/19 12:00 04/02/19 12:00 04/02/19 12:00 Intake & Output 04/01/19 04/02/19 04/03/19 06:59 06:59 06:59 Intake Total 2882 2900 392 Output Total 1385 1515 550 Balance 1497 1385 -158 Weight 119 lb 4.321 oz 117 lb 8.102 oz General appearance: PRESENT: other - Intubated, sedated Eye exam: PRESENT: conjunctiva pink, EOMI, PERRLA. ABSENT: scleral icterus Ear exam: PRESENT: normal external ear exam Neck exam: ABSENT: carotid bruit, JVD, lymphadenopathy, thyromegaly Respiratory exam: PRESENT: decreased breath sounds, rhonchi. ABSENT: rales, wheezes Cardiovascular exam: PRESENT: irregular rhythm. ABSENT: diastolic murmur, rubs, systolic murmur Pulses: PRESENT: normal dorsalis pedis pul GI/Abdominal exam: PRESENT: normal bowel sounds, soft. ABSENT: distended, guarding, mass, organolmegaly, rebound, tenderness Rectal exam: PRESENT: deferred - [id number] Neurological exam: PRESENT: other - Intubated, [id number] Results Laboratory Results: 04/02/19 03:42 04/02/19 03:42 04/01/19 04/02/19 04/02/19 21:58 03:42 03:42 WBC RBC Hgb Hct MCV MCH MCHC RDW Plt Count Seg Neutrophils % Lymphocytes % Monocytes % Eosinophils % Basophils % Absolute Neutrophils Absolute Lymphocytes Absolute Monocytes Absolute Eosinophils Absolute Basophils Carbonic Acid 0.56 L HCO3/H2CO3 Ratio 29:1 ABG pH 7.56 H ABG pCO2 18.5 L* ABG pO2 104.5 H ABG HCO3 16.3 L ABG O2 Saturation 98.5 H ABG Base Excess -3.4 FiO2 21% Sodium 131.6 L Potassium 3.9 3.8 Chloride 105 Carbon Dioxide 17 L Anion Gap 10 BUN 30 H Creatinine 0.62 Est GFR ( Amer) > 60 Est GFR (Non-Af Amer) > 60 Glucose 133 H Calcium 8.5 Phosphorus 3.2 Magnesium 1.8 04/02/19 03:42 WBC 15.4 H RBC 4.22 L Hgb 12.3 L Hct 36.6 L MCV 87 MCH 29.1 MCHC 33.6 RDW 15.1 H Plt Count 365 Seg Neutrophils % Not Reportable Lymphocytes % Not Reportable Monocytes % Not Reportable Eosinophils % Not Reportable Basophils % Not Reportable Absolute Neutrophils Not Reportable Absolute Lymphocytes Not Reportable Absolute Monocytes Not Reportable Absolute Eosinophils Not Reportable Absolute Basophils Not Reportable Carbonic Acid HCO3/H2CO3 Ratio ABG pH ABG pCO2 ABG pO2 ABG HCO3 ABG O2 Saturation ABG Base Excess FiO2 Sodium Potassium Chloride Carbon Dioxide Anion Gap BUN Creatinine Est GFR ( Amer) Est GFR (Non-Af Amer) Glucose Calcium Phosphorus Magnesium 03/15/19 03/15/19 03/21/19 13:23 13:23 03:25 Creatine Kinase 62 CK-MB (CK-2) 2.61 Troponin I 0.014 NT-Pro-B Natriuret Pep 45992 H 04/01/19 04:05 Creatine Kinase CK-MB (CK-2) Troponin I NT-Pro-B Natriuret Pep 5650 H Impressions: Chest CT 03/22/19 08:22 IMPRESSION: Extensive ground-glass infiltrates. Pulmonary edema versus infection. Significant bilateral pleural effusions. Atherosclerosis. There is a PICC on the right. Head CTA 03/26/19 00:00 IMPRESSION: 1. No acute intracranial pathology. No noncontrast CT evidence of acute stroke or hemorrhage. Small vessel white matter disease. 2. No evidence of intracranial occlusion, stenosis, or aneurysm. 3. There is calcific atherosclerosis of the bilateral internal carotid artery origins with approximately 50% stenosis at the origin of the right internal carotid artery and greater than 70% stenosis of the origin of the left internal carotid artery. EVIDENCE OF ACUTE STROKE: NO. Head CT 03/26/19 09:09 IMPRESSION: 1. No acute intracranial pathology. No noncontrast CT evidence of acute stroke or hemorrhage. Small vessel white matter disease. 2. No evidence of intracranial occlusion, stenosis, or aneurysm. 3. There is calcific atherosclerosis of the bilateral internal carotid artery origins with approximately 50% stenosis at the origin of the right internal carotid artery and greater than 70% stenosis of the origin of the left internal carotid artery. EVIDENCE OF ACUTE STROKE: NO. Neck CTA 03/26/19 09:21 IMPRESSION: 1. No acute intracranial pathology. No noncontrast CT evidence of acute stroke or hemorrhage. Small vessel white matter disease. 2. No evidence of intracranial occlusion, stenosis, or aneurysm. 3. There is calcific atherosclerosis of the bilateral internal carotid artery origins with approximately 50% stenosis at the origin of the right internal carotid artery and greater than 70% stenosis of the origin of the left internal carotid artery. EVIDENCE OF ACUTE STROKE: NO. KUB X-Ray 03/27/19 13:11 IMPRESSION: Nasogastric tube tip and side port in the stomach. Dilated small bowel loops in the left upper quadrant worrisome for small bowel obstruction versus ileus. Chest X-Ray 04/02/19 06:00 IMPRESSION: No significant change. Assessment and Plan - Diagnosis (1) Acute hypoxemic respiratory failure Is this a current diagnosis for this admission?: Yes Plan: Patient went into acute respiratory failure on 03/27 and was reintubated. He was noted to be tachypneic and became unresponsive hence was reintubated. Repeat chest x-ray then showed basilar opacities. There is a question if patient might have aspirated as he was started on tube feedings. He is currently sedated and is saturating well on minimal vent settings at 21% FiO2. (2) Fluid overload Is this a current diagnosis for this admission?: Yes Plan: Initially responded well to diuresis. (3) New onset atrial fibrillation Is this a current diagnosis for this admission?: Yes Plan: Rate controlled. Continue aspirin and oral Cardizem. (4) COPD (chronic obstructive pulmonary disease) Qualifiers: Emphysema type: unspecified Is this a current diagnosis for this admission?: Yes Plan: Exacerbation resolved. (5) Hyponatremia Is this a current diagnosis for this admission?: Yes (6) Pleural effusion Is this a current diagnosis for this admission?: Yes (7) Aspiration pneumonia Is this a current diagnosis for this admission?: Yes (8) Hypokalemia Is this a current diagnosis for this admission?: Yes - Time Time Spent with patient: 25-34 minutes
--- NOTE | 2019-04-02 16:48 | Progress Note ---
Provider Note Provider Note: ID Consult Note Asked to review patient's chart. Pt is a 63 year old man who has been hospitalized with alcohol withdrawal with DTs. He had pulmonary edema earlier this admission. He has risk factors for aspiration. Pt required re-intubation on 03/27 with copious material suctioned out at the time and fever. He has been afebrile since then. AP films of the chest showed relatively clear lungs, perhaps some interstitial prominence b/l. Vent settings have been able to be weaned down. On 10/03, FiO2 21%. Lungs noted to sound clear. Impression/Recommendations I suspect the patient may have had aspiration pneumonitis rather than pneumonia. - The fever and suctioning of copious or thick secretions around the time pt acutely decompensated on 03/27 does not distinguish between pneumonia or pneumonitis. The tempo of events in retrospect - the rapidity of decompensation and subsequent improvement in respiratory parameters and fever - suggest pneumonitis is more likely, however. - He is on day 5 of linezolid, which was preceded by a few days of IV vancomycin. He has essentially received treatment as though there was a pneumonia, regardless. - There is no obvious focal infiltrate on CXR. Oxygen requirements on ventilator have improved. - At this point, recommend stopping linezolid. Suggest no additional antibiotics at present and favor montioring and supportive care. Luca Kidd MD [facility] Infectious Diseases pager [phone]
[2019-04-02] MEDS: FUROSEMIDE INJ/PF 20 MG/2 ML SDV IV SCH (17:04)
[2019-04-03] MEDS: LEVALBUTEROL HCL NEB 1.25 MG/3 ML AMPUL NEB SCH ×4 (01:51→20:39)
[2019-04-03] MEDS: IPRATROPIUM BROMIDE 0.02% NEB 0.5 MG/2.5 ML AMPUL NEB SCH ×4 (01:51→20:39)
[2019-04-03] MEDS: PROPOFOL 1,000 MG/100 ML INFUS..BTL IV PRN ×5 (02:39→23:49)
[2019-04-03 04:06] LABS: ARTERIAL BLOOD BASE EXCESS -5.9 mmol/L; ARTERIAL BLOOD H2CO3 0.59 mmol/L (1.05-1.35); ARTERIAL BLOOD HCO3 15.2 mmol/L (20-24); ARTERIAL BLOOD O2 SATURATION 98.2 % (94-98); ARTERIAL BLOOD PH 7.51 (7.35-7.45); ARTERIAL BLOOD TOTAL CO2 15.8 mmol/L (23-27)
[2019-04-03 04:10] LABS: ARTERIAL BLOOD FIO2 21%; ARTERIAL BLOOD PCO2 19.7 mmHg (35-45)
[2019-04-03 04:18] LABS: ANION GAP 9 (5-19); BLOOD UREA NITROGEN 32 mg/dL (7-20); CARBON DIOXIDE 16 mmol/L (22-30); CHLORIDE 107 mmol/L (98-107); GLUCOSE 127 mg/dL (75-110); POTASSIUM 3.7 mmol/L (3.6-5.0); SODIUM 131.5 mmol/L (137-145)
[2019-04-03 04:21] LABS: HEMATOCRIT 31.8 % (37.9-51.0); HEMOGLOBIN 10.6 g/dL (13.5-17.0); MEAN CORPUSCULAR HEMOGLOBIN 29.2 pg (27.0-33.4); MEAN CORPUSCULAR HGB CONC 33.4 g/dL (32.0-36.0); MEAN CORPUSCULAR VOLUME 88 fl (80-97); PLATELET COUNT 346 10^3/uL (150-450); RED BLOOD COUNT 3.63 10^6/uL (4.35-5.55); RED CELL DISTRIBUTION WIDTH 15.3 % (11.5-14.0); WHITE BLOOD COUNT 18.3 10^3/uL (4.0-10.5)
[2019-04-03 04:59] LABS: ABSOLUTE LYMPHOCYTES# (MANUAL) 0.7 10^3/uL (0.5-4.7); ABSOLUTE MONOCYTES # (MANUAL) 1.3 10^3/uL (0.1-1.4); ABSOLUTE NEUTROPHILS# (MANUAL) 16.3 10^3/uL (1.7-8.2); BAND NEUTROPHILS % (MANUAL) 4 % (3-5); BASOPHILS % (MANUAL) 0 % (0-2); EOSINOPHILS % (MANUAL) 0 % (0-6); LYMPHOCYTES % (MANUAL) 4 % (13-45); METAMYELOCYTES % (MANUAL) 3 % (0); MONOCYTES % (MANUAL) 7 % (3-13); SEGMENTED NEUTROPHILS % (MAN) 82 % (42-78); TOTAL CELLS COUNTED 100
[2019-04-03 05:04] LABS: PLATELET COMMENT ADEQUATE
[2019-04-03 05:05] LABS: ANISOCYTOSIS SLIGHT; BURR CELLS 3+; OVALOCYTES 1+; POIKILOCYTOSIS 2+; SCHISTOCYTES SLIGHT
[2019-04-03] MEDS: HEPARIN SOD (PORCINE) 5,000 UNIT/ML 1 ML SYRINGE SUBCUT SCH ×3 (05:14→21:30)
[2019-04-03] MEDS: INSULIN LISPRO 100 UNIT/ML 3 ML VIAL SUBCUT SCH ×4 (05:14→23:49)
[2019-04-03] MEDS: FUROSEMIDE INJ/PF 20 MG/2 ML SDV IV SCH ×2 (05:24→17:21)
[2019-04-03] MEDS: METHYLPREDNISOLONE INJ 125 MG/2 ML SDV IV SCH ×3 (05:24→21:28)
[2019-04-03] MEDS: POTASSIUM CHLORIDE 20 MEQ PACKET NG SCH ×4 (05:25→23:48)
[2019-04-03] MEDS: DILTIAZEM HCL 30 MG TABLET NG SCH ×4 (05:32→23:48)
[2019-04-03] MEDS: HYDRALAZINE HCL 25 MG TABLET NG SCH ×3 (06:40→21:29)
[2019-04-03] MEDS: 1/2 NORMAL SALINE 1,000 ML IV PRN (06:41)
[2019-04-03] MEDS: BUDESONIDE NEB 0.5 MG/2 ML AMPUL NEB SCH ×2 (08:09→20:39)
--- NOTE | 2019-04-03 08:23 | RADIOLOGY REPORT (SQ) ---
EXAM DESCRIPTION: CHEST SINGLE VIEW COMPLETED DATE/TIME: 04/03/2019 7:44 am REASON FOR STUDY: RESP FAILURE COMPARISON: EXAM PARAMETERS: NUMBER OF VIEWS: One view. TECHNIQUE: Single frontal radiographic view of the chest acquired. RADIATION DOSE: NA LIMITATIONS: None. FINDINGS: LUNGS AND PLEURA: Stable chronic interstitial changes without focal airspace disease, pleu ral effusion or pneumothorax. MEDIASTINUM AND HILAR STRUCTURES: No masses. Contour normal. HEART AND VASCULAR STRUCTURES: Normal heart size. Aortic atherosclerosis. BONES: No acute findings. HARDWARE: Endotracheal tube tip overlies midthoracic trachea. Right approach subclavian based centra l venous catheter tip at cavoatrial junction. Enteric tube tip below diaphragm but excluded by colli mation. OTHER: No other significant finding. IMPRESSION: Stable chest without evidence of new cardiopulmonary complication. Lines and tubes as above. TECHNICAL DOCUMENTATION: JOB ID: [id number] [employer]- All Rights Reserved Reading location - IP/workstation name: [email or web address]
--- NOTE | 2019-04-03 09:53 | RADIOLOGY REPORT (SQ) ---
EXAM DESCRIPTION: CT HEAD WITHOUT COMPLETED DATE/TIME: 04/03/2019 9:30 am REASON FOR STUDY: rule out stroke COMPARISON: 03/26/2019 TECHNIQUE: Axial images acquired through the brain without intravenous contrast. Images reviewed wi th bone, brain and subdural windows. Additional sagittal and coronal reconstructions were generated. Images stored on PACS. All CT scanners at this facility use dose modulation, iterative reconstruction, and/or weight based d osing when appropriate to reduce radiation dose to as low as reasonably achievable (ALARA). [facility]: Dose Right [facility]: CareDose [facility]: Dose Right [facility]: Teradose 4D [facility]: [employer] RADIATION DOSE: CT Rad equipment meets quality standard of care and radiation dose reduction techniq ues were employed. CTDIvol: 48.5 mGy. DLP: 855 mGy-cm. mGy. LIMITATIONS: None. FINDINGS: VENTRICLES: Prominent ventricles secondary to involutional atrophy. CEREBRUM: No masses. No hemorrhage. No midline shift. No evidence for acute infarction. Few scatte red areas of low density in the white matter most likely chronic small vessel ischemic changes. CEREBELLUM: No masses. No hemorrhage. No alteration of density. No evidence for acute infarction. EXTRAAXIAL SPACES: No fluid collections. No masses. ORBITS AND GLOBE: No intra- or extraconal masses. Normal contour of globe without masses. CALVARIUM: Unchanged nasal bone fractures. No acute bony abnormalities. PARANASAL SINUSES: Complete opacification of the right maxillary sinus, increased from prior. Remain ing paranasal sinuses. Evidence of prior mastoidectomy with unchanged debris in the right mastoid sp sandeep. SOFT TISSUES: No mass or hematoma. OTHER: Partially visualized endotracheal and nasoenteric tubes. IMPRESSION: 1. Stable chronic changes without evidence of new intracranial process. 2. Worsening opacification of the right maxillary sinus, likely secondary to intubation. 3. Evidence of prior mastoidectomy with unchanged debris in the right mastoid cavity, possibly mycet bridgett. EVIDENCE OF ACUTE STROKE: NO. COMMENT: Quality ID # [id number]: Final reports with documentation of one or more dose reduction techniques (e.g., Automated exposure control, adjustment of the mA and/or kV according to patient size, use of iterative reconstruction technique) TECHNICAL DOCUMENTATION: JOB ID: [id number] [employer]- All Rights Reserved Reading location - IP/workstation name: [email or web address]
--- NOTE | 2019-04-03 10:07 | RADIOLOGY REPORT (SQ) ---
EXAM DESCRIPTION: CT CHEST WITHOUT COMPLETED DATE/TIME: 04/03/2019 9:30 am REASON FOR STUDY: reassess effusions,infiltrates and congestion COMPARISON: 03/22/2019 TECHNIQUE: CT scan performed of the chest without intravenous contrast. Images reviewed with lung, soft tissue and bone windows. Reconstructed coronal and sagittal MPR images reviewed. All images st ored on PACS. All CT scanners at this facility use dose modulation, iterative reconstruction, and/or weight based d osing when appropriate to reduce radiation dose to as low as reasonably achievable (ALARA). [facility]: Dose Right [facility]: CareDose [facility]: Dose Right [facility]: Teradose 4D [facility]: [employer] RADIATION DOSE: CT Rad equipment meets quality standard of care and radiation dose reduction techniq ues were employed. CTDIvol: 7.9 mGy. DLP: 292 mGy-cm. mGy. LIMITATIONS: No technical limitations. FINDINGS: LUNGS AND PLEURA: Improved aeration of the previously seen bilateral areas of consolidatio n and ground-glass attenuation. Small bilateral pleural effusions, improved from prior. No pneumoth orax. Residual lower lobe consolidation bilaterally, likely atelectasis. No discrete masses. HILAR AND MEDIASTINAL STRUCTURES: Hilar and mediastinal calcified lymph nodes likely from prior granu lomatous disease, stable. No new adenopathy. . No obvious aneurysm. Aortic atherosclerosis. HEART AND VASCULAR STRUCTURES: Small pericardial effusion. Extensive three-vessel coronary atheroscl erosis. UPPER ABDOMEN: No significant findings. Limited exam. THYROID AND OTHER SOFT TISSUES: No masses. No adenopathy. BONES: Unchanged bilateral subacute anterior rib fractures. No new bony abnormality. No suspicious osseous lesions. HARDWARE: Endotracheal tube tip at midthoracic trachea. Enteric tube tip within the gastric body. R ight approach subclavian central venous catheter tip at cavoatrial junction. OTHER: No other significant findings. IMPRESSION: 1. Improved aeration of previously seen bilateral areas of consolidation and ground-gla ss attenuation. Small bilateral pleural effusions, improved from prior. No new airspace disease. N o pneumothorax. 2. Stable bilateral subacute anterior rib fractures. TECHNICAL DOCUMENTATION: JOB ID: [id number] Quality ID # [id number]: Final reports with documentation of one or more dose reduction techniques (e.g., Au tomated exposure control, adjustment of the mA and/or kV according to patient size, use of iterative reconstruction technique) 2010 [employer]- All Rights Reserved Reading location - IP/workstation name: [email or web address]
[2019-04-03] MEDS: LINEZOLID 600 MG/300 ML RTUPB IV SCH ×2 (10:19→21:26)
[2019-04-03] MEDS: AMINO AC/PROTEIN HYDR/WHEY PRO 11 GM/45 ML PKT NG SCH ×2 (10:19→17:21)
[2019-04-03] MEDS: LISINOPRIL 5 MG TABLET NG SCH (10:19)
[2019-04-03] MEDS: FOLIC ACID 1 MG TABLET NG SCH (10:19)
[2019-04-03] MEDS: ASPIRIN 81 MG TABLET, CHEWABLE NG SCH (10:20)
[2019-04-03] MEDS: THIAMINE HCL 100 MG TABLET NG SCH (10:20)
[2019-04-03] MEDS: PANTOPRAZOLE SODIUM 40 MG VIAL IV SCH (10:31)
--- NOTE | 2019-04-03 15:09 | PDOC PROGRESS REPORT ---
Subjective Progress Note for:: 04/03/19 Subjective:: This is a 63 yr old male who was admitted for acute encpehalopathy. He was found to have severe hyponatremia and was started on hypertonic saline. He went into acute respiratory failure deeemd to be from likely aspiration pneumonia and DTs and was intubated on 03/17. He was extubated on 03/20. 03/22: Patient was downgraded from ICU last night. This morning around 6 AM, patient went into AFib with RVR. Apparently, he was given 2 doses of IV Lopressor but he had persistent AFib in the 140s. Upon initial encounter, patient is still in AFib. He is slightly tachpyneic and has significant rales bilaterally with decreased breath sounds on the bases. He will be started on Cardizem drip and will be upgraded to IMCU. Chest x-ray yesterday appears to show worsening airspace disease and pleural effusions. Will pursue a chest CT. 2 PM: Patient reassessed. He is now in normal sinus rhythm on minimal Cardizem infusion (2.5). He appears to be breathing better and is saturating well on 4 [address] NC[address] shows significant pleural effusions bilaterally. He has been on Rocephin. Switch to Zosyn. Possible acute congestive heart failure. Start IV Lasix. Replace Potassium as needed. Will consult radiology if there is no improvement in pleural effusions with diuresis. Speech therapist has recommended keeping patient NPO over the next few days. 03/23: He remains on NSR on cardizem drip. He appears more conversant today and says he wants water but is not well oriented. Weaned off BIPAP and he is now saturating well on nasal cannula. He has diuresed well overnight. Will repeat CXR today to reassess effusions. Able to contact patient's son, Rohith who was updated about patient's status and plan of care. Discussed anticoagulation and he says he would have to discuss this further with his sister/DPMIHAI who is unreachable at the moment. 03/24: Currently on sinus rhythm on cardizem drip. He remains NPO until reassessment by speech tomorrow. He had significant improvement with aggressive diuresis. Repeat chest x-ray shows significant improvement of airspace disease with IV Lasix in 24 hrs. 03/25: No acute event overnight. He continues to improve significantly. He is more awake and alert today but appears deconditioned. He is comfortable and is saturating well on nasal cannula. Repeat CXR shows near complete resolution of bilateral airspace disease and bilateral effusions. Apparently we don't have speech therapy services today and he will be re-evaluated by speech tomorrow. Until then, he will remain NPO and will continue IV medications. He is currently in sinus rhythm on minimal dose of cardizem infusion. Lasix has been decreased to 40 mg daily. May be decreased further or discontinued in the next 24-28 hrs. 04/02: Reassumed care today. Patient apparently went into acute respiratory failure on 03/27. He was noted to be tachypneic and became unresponsive hence was reintubated. Repeat chest x-ray then showed basilar opacities. There was a question if patient might have aspirated. He is currently sedated and is saturating well on minimal vent settings at 21% FiO2. 04/03: No acute event overnight. He continues to saturate well on minimal vent settings. Repeat chest CT shows improved aeration of previously seen bilateral areas of consolidation and groundglass attenuation. There is also significant improvement of small bilateral pleural effusions. Minimal secretions from ET tube. We will continue with weaning trials. Reason For Visit: SEVERE HYPONATREMIA Physical Exam Vital Signs: Temp Pulse Resp BP Pulse Ox 97.3 F 92 22 H 133/78 H 99 04/03/19 14:00 04/03/19 14:00 04/03/19 14:00 04/03/19 14:00 04/03/19 14:00 Intake & Output 04/02/19 04/03/19 04/04/19 06:59 06:59 06:59 Intake Total 2900 4432 614 Output Total 1515 2725 950 Balance 1385 1707 -336 Weight 117 lb 8.102 oz 129 lb 3.054 oz General appearance: PRESENT: other - Intubated, sedated Eye exam: PRESENT: conjunctiva pink, EOMI, PERRLA. ABSENT: scleral icterus Ear exam: PRESENT: normal external ear exam Mouth exam: PRESENT: moist, tongue midline Neck exam: ABSENT: carotid bruit, JVD, lymphadenopathy, thyromegaly Respiratory exam: PRESENT: rhonchi. ABSENT: rales, wheezes Cardiovascular exam: PRESENT: RRR. ABSENT: diastolic murmur, rubs, systolic murmur Pulses: PRESENT: normal dorsalis pedis pul Vascular exam: PRESENT: normal capillary refill GI/Abdominal exam: PRESENT: normal bowel sounds, soft. ABSENT: distended, guarding, mass, organolmegaly, rebound, tenderness Rectal exam: PRESENT: deferred Neurological exam: PRESENT: other - Intubated, sedated Results Laboratory Results: 04/03/19 03:58 04/03/19 03:58 04/02/19 04/03/19 04/03/19 19:45 03:58 03:58 WBC RBC Hgb Hct MCV MCH MCHC RDW Plt Count Seg Neutrophils % Lymphocytes % Monocytes % Eosinophils % Basophils % Absolute Neutrophils Absolute Lymphocytes Absolute Monocytes Absolute Eosinophils Absolute Basophils Carbonic Acid 0.59 L HCO3/H2CO3 Ratio 25:1 ABG pH 7.51 H ABG pCO2 19.7 L* ABG pO2 100.0 ABG HCO3 15.2 L ABG O2 Saturation 98.2 H ABG Base Excess -5.9 FiO2 21% Sodium 131.5 L Potassium 3.7 Chloride 107 Carbon Dioxide 16 L Anion Gap 9 BUN 32 H Creatinine 0.57 Est GFR ( Amer) > 60 Est GFR (Non-Af Amer) > 60 Glucose 127 H Calcium 8.0 L Magnesium Stool Occult Blood POSITIVE 04/03/19 04/03/19 03:58 03:58 WBC 18.3 H RBC 3.63 L Hgb 10.6 L Hct 31.8 L MCV 88 MCH 29.2 MCHC 33.4 RDW 15.3 H Plt Count 346 Seg Neutrophils % Not Reportable Lymphocytes % Not Reportable Monocytes % Not Reportable Eosinophils % Not Reportable Basophils % Not Reportable Absolute Neutrophils Not Reportable Absolute Lymphocytes Not Reportable Absolute Monocytes Not Reportable Absolute Eosinophils Not Reportable Absolute Basophils Not Reportable Carbonic Acid HCO3/H2CO3 Ratio ABG pH ABG pCO2 ABG pO2 ABG HCO3 ABG O2 Saturation ABG Base Excess FiO2 Sodium Potassium Chloride Carbon Dioxide Anion Gap BUN Creatinine Est GFR ( Amer) Est GFR (Non-Af Amer) Glucose Calcium Magnesium 1.7 Stool Occult Blood 03/15/19 03/15/19 03/21/19 13:23 13:23 03:25 Creatine Kinase 62 CK-MB (CK-2) 2.61 Troponin I 0.014 NT-Pro-B Natriuret Pep 65279 H 04/01/19 04:05 Creatine Kinase CK-MB (CK-2) Troponin I NT-Pro-B Natriuret Pep 5650 H Impressions: Head CTA 03/26/19 00:00 IMPRESSION: 1. No acute intracranial pathology. No noncontrast CT evidence of acute stroke or hemorrhage. Small vessel white matter disease. 2. No evidence of intracranial occlusion, stenosis, or aneurysm. 3. There is calcific atherosclerosis of the bilateral internal carotid artery origins with approximately 50% stenosis at the origin of the right internal carotid artery and greater than 70% stenosis of the origin of the left internal carotid artery. EVIDENCE OF ACUTE STROKE: NO. Neck CTA 03/26/19 09:21 IMPRESSION: 1. No acute intracranial pathology. No noncontrast CT evidence of acute stroke or hemorrhage. Small vessel white matter disease. 2. No evidence of intracranial occlusion, stenosis, or aneurysm. 3. There is calcific atherosclerosis of the bilateral internal carotid artery origins with approximately 50% stenosis at the origin of the right internal carotid artery and greater than 70% stenosis of the origin of the left internal carotid artery. EVIDENCE OF ACUTE STROKE: NO. KUB X-Ray 03/27/19 13:11 IMPRESSION: Nasogastric tube tip and side port in the stomach. Dilated small bowel loops in the left upper quadrant worrisome for small bowel obstruction versus ileus. Chest X-Ray 04/03/19 00:00 IMPRESSION: Stable chest without evidence of new cardiopulmonary complication. Lines and tubes as above. Chest CT 04/03/19 07:00 IMPRESSION: 1. Improved aeration of previously seen bilateral areas of consolidation and ground-glass attenuation. Small bilateral pleural effusions, improved from prior. No new airspace disease. No pneumothorax. 2. Stable bilateral subacute anterior rib fractures. Head CT 04/03/19 08:55 IMPRESSION: 1. Stable chronic changes without evidence of new intracranial pro cess. 2. Worsening opacification of the right maxillary sinus, likely secondary to intubation. 3. Evidence of prior mastoidectomy with unchanged debris in the right mastoid cavity, possibly mycetoma. EVIDENCE OF ACUTE STROKE: NO. Assessment and Plan - Diagnosis (1) Acute hypoxemic respiratory failure Is this a current diagnosis for this admission?: Yes Plan: Patient went into acute respiratory failure on 03/27 and was reintubated. He was noted to be tachypneic and became unresponsive hence was reintubated. Repeat chest x-ray then showed basilar opacities. There is a question if patient might have aspirated. He is currently sedated and is saturating well on minimal vent settings at 21% FiO2. 6/5: He continues to saturate well on minimal vent settings. Repeat chest CT shows improved aeration of previously seen bilateral areas of consolidation and groundglass attenuation. There is also significant improvement of small bilateral pleural effusions. Minimal secretions from ET tube. We will continue with weaning trials. (2) Pleural effusion Is this a current diagnosis for this admission?: Yes Plan: Improved. (3) Aspiration pneumonia Is this a current diagnosis for this admission?: Yes Plan: Previously on vancomycin and cefepime. Sputum cultures grew MRSA and he was switched to linezolid per ID recommendation. Appreciate ID recommendations. Repeat chest CT does show improvement of bilateral airspace disease and effusion. Repeat sputum culture. Will discontinue Zyvox. (4) New onset atrial fibrillation Is this a current diagnosis for this admission?: Yes Plan: Rate controlled. Continue aspirin and oral Cardizem. (5) Fluid overload Is this a current diagnosis for this admission?: Yes Plan: Improved. (6) COPD (chronic obstructive pulmonary disease) Qualifiers: Emphysema type: unspecified Is this a current diagnosis for this admission?: Yes Plan: Exacerbation resolved. (7) Hypokalemia Is this a current diagnosis for this admission?: Yes Plan: Resolved. (8) Hyponatremia Is this a current diagnosis for this admission?: Yes - Time Time Spent with patient: 25-34 minutes
--- NOTE | 2019-04-03 18:21 | NEURO WORKBENCH EEG REPORT ---
EEG Report Patient: Mc Roper ID: [id number] Referring Doctor: Richi Daniels Date: 04/03/2019 Reason for study: Evaluate for cerebral activity Medications: Lopressor, Protonix, Dipravan, Thiamine, Pulmicort, Cadizem, Lasix, Apresoline, Insulin, Atrovent, Xopenex, Linezolid, Lisinopril, Solu-medrol History: This is a 63year old male with a history of HTN, CHF, COPD, Depression, Pneumonia and respiratory failure, and hyponatremia. This EEG was requested for evaluation of cerebral activity. EEG Interpretation This EEG was recorded in the ICU and the patient is intubated. There were no apparent spontaneous eye openings or closings, but the telecommunication tower technician manually opened and closed the patients eyes multiple times, but there was no significant reactivity of the EEG to passive eye opening and closure. With eye closure there is no occipital dominant rhythm present. The backgound EEG shows predominantly diffuse polymorphic low amplitude 0.5-2 Hz delta activity with frequent intermittent superimposed diffuse 9-12 Hz alpha activity. There were no asymmetries in amplitude or frequencies. Photic stimulation was done and photic driving was not noted. There were poorly formed sleep spindles present. There was no epileptiform activity (meaning no sharp waves or spikes), and there were no seizures noted. The EKG showed a regular rhythm with rates typically in the 70-85 range with a rare ectopic beat. EEG Impression This is a markedly abnormal EEG and consistent with diffuse cerebral dysfunction which is non-specific for etiology. Likely considerations would include diffuse hypoxic injury, toxic-metabolic derangements, hypothermia (patient temperature was not noted), drug intoxication, or post-ictal state. It should be noted that the patients medication list includes Diprovan, but I do not have access to see what the infusion dose/rate of this medication is or if it is being given in boluses. Diprovan could certainly be a significant contributing factor to the abnormalities seen on this EEG. There were no EEG findings consistent with epilepsy, but if there is strong concern for clinical or sub-clinical seizure activity then long-term EEG monitoring would be advised or additional repeat routine EEGs if long-term monitoring is not available. MTDD
[2019-04-04] MEDS: IPRATROPIUM BROMIDE 0.02% NEB 0.5 MG/2.5 ML AMPUL NEB SCH ×4 (01:58→19:55)
[2019-04-04] MEDS: LEVALBUTEROL HCL NEB 1.25 MG/3 ML AMPUL NEB SCH ×4 (01:58→19:55)
[2019-04-04 04:01] LABS: ARTERIAL BLOOD BASE EXCESS -5.8 mmol/L; ARTERIAL BLOOD H2CO3 0.52 mmol/L (1.05-1.35); ARTERIAL BLOOD HCO3 14.4 mmol/L (20-24); ARTERIAL BLOOD O2 SATURATION 98.4 % (94-98); ARTERIAL BLOOD PH 7.54 (7.35-7.45); ARTERIAL BLOOD PO2 103.1 mmHg (80-100); ARTERIAL BLOOD TOTAL CO2 14.9 mmol/L (23-27)
[2019-04-04 04:03] LABS: ARTERIAL BLOOD FIO2 21%; ARTERIAL BLOOD PCO2 17.4 mmHg (35-45)
[2019-04-04 04:18] LABS: ANION GAP 9 (5-19); BLOOD UREA NITROGEN 36 mg/dL (7-20); CALCIUM 8.7 mg/dL (8.4-10.2); CARBON DIOXIDE 17 mmol/L (22-30); CHLORIDE 106 mmol/L (98-107); GLUCOSE 150 mg/dL (75-110); POTASSIUM 4.6 mmol/L (3.6-5.0); SODIUM 131.9 mmol/L (137-145)
[2019-04-04] MEDS ORDERED: NORMAL SALINE 1000 ML 1,000 ML IV ONE (05:01)
[2019-04-04] MEDS: INSULIN LISPRO 100 UNIT/ML 3 ML VIAL SUBCUT SCH ×4 (05:22→23:06)
[2019-04-04] MEDS: HEPARIN SOD (PORCINE) 5,000 UNIT/ML 1 ML SYRINGE SUBCUT SCH ×3 (05:59→21:47)
[2019-04-04] MEDS: FUROSEMIDE INJ/PF 20 MG/2 ML SDV IV SCH ×2 (06:08→18:13)
[2019-04-04] MEDS: METHYLPREDNISOLONE INJ 125 MG/2 ML SDV IV SCH ×2 (06:09→17:21)
[2019-04-04] MEDS: POTASSIUM CHLORIDE 20 MEQ PACKET NG SCH ×4 (06:09→23:05)
[2019-04-04] MEDS: DILTIAZEM HCL 30 MG TABLET NG SCH ×4 (06:22→23:04)
[2019-04-04] MEDS: HYDRALAZINE HCL 25 MG TABLET NG SCH ×3 (06:23→21:47)
[2019-04-04] MEDS: BUDESONIDE NEB 0.5 MG/2 ML AMPUL NEB SCH ×2 (07:43→19:55)
--- NOTE | 2019-04-04 07:48 | RADIOLOGY REPORT (SQ) ---
EXAM DESCRIPTION: XR CHEST 1 VIEW COMPLETED DATE/TME: 04/04/2019 06:00 CLINICAL HISTORY: 63 years Male, resp failure COMPARISON: One day prior. NUMBER OF VIEWS/TECHNIQUE: 1/AP FINDINGS: Tip of an endotracheal tube is 1.9 cm from the raúl; recommend 3.1 cm retraction. Prominent interstitium.Adequate appearing enteric tube partially obscured. Adequate appearing right subclavian central line. Atherosclerotic vascular disease. Normal cardiac silhouette size. No pneumothorax. Stable bony thorax. IMPRESSION: Tip of an endotracheal tube is 1.9 cm from the raúl; recommend 3.1 cm retraction.
[2019-04-04] MEDS ORDERED: DEXMEDETOMIDINE IN NS 400 MCG/100 ML RTUPB IV PRN (09:13)
[2019-04-04] MEDS: AMINO AC/PROTEIN HYDR/WHEY PRO 11 GM/45 ML PKT NG SCH ×2 (09:16→18:12)
[2019-04-04] MEDS: LINEZOLID 600 MG/300 ML RTUPB IV SCH (09:16)
[2019-04-04] MEDS: FOLIC ACID 1 MG TABLET NG SCH (09:17)
[2019-04-04] MEDS: PROPOFOL 1,000 MG/100 ML INFUS..BTL IV PRN (09:17)
[2019-04-04] MEDS: LISINOPRIL 5 MG TABLET NG SCH (09:17)
[2019-04-04] MEDS: THIAMINE HCL 100 MG TABLET NG SCH (09:17)
[2019-04-04] MEDS: PANTOPRAZOLE SODIUM 40 MG VIAL IV SCH (09:17)
[2019-04-04] MEDS: ASPIRIN 81 MG TABLET, CHEWABLE NG SCH (09:17)
[2019-04-04 10:09] LABS: HEMATOCRIT 29.5 % (37.9-51.0); HEMOGLOBIN 9.9 g/dL (13.5-17.0); MEAN CORPUSCULAR HEMOGLOBIN 29.6 pg (27.0-33.4); MEAN CORPUSCULAR HGB CONC 33.6 g/dL (32.0-36.0); MEAN CORPUSCULAR VOLUME 88 fl (80-97); RED BLOOD COUNT 3.35 10^6/uL (4.35-5.55); RED CELL DISTRIBUTION WIDTH 15.6 % (11.5-14.0); WHITE BLOOD COUNT 16.9 10^3/uL (4.0-10.5)
[2019-04-04 10:56] LABS: ABSOLUTE NEUTROPHILS# (MANUAL) 14.9 10^3/uL (1.7-8.2); BAND NEUTROPHILS % (MANUAL) 2 % (3-5); BASOPHILS % (MANUAL) 0 % (0-2); EOSINOPHILS % (MANUAL) 0 % (0-6); LYMPHOCYTES % (MANUAL) 5 % (13-45); METAMYELOCYTES % (MANUAL) 1 % (0); MONOCYTES % (MANUAL) 6 % (3-13); SEGMENTED NEUTROPHILS % (MAN) 85 % (42-78); TOTAL CELLS COUNTED 100
[2019-04-04 10:57] LABS: ANISOCYTOSIS SLIGHT; POLYCHROMASIA SLIGHT
[2019-04-04 10:58] LABS: PLATELET CLUMPS PRESENT; PLATELET COMMENT ADEQUATE; PLATELET COUNT 371 10^3/uL (150-450)
[2019-04-04 13:08] LABS: ARTERIAL BLOOD BASE EXCESS -4.8 mmol/L; ARTERIAL BLOOD H2CO3 0.51 mmol/L (1.05-1.35); ARTERIAL BLOOD O2 SATURATION 98.7 % (94-98); ARTERIAL BLOOD PH 7.56 (7.35-7.45); ARTERIAL BLOOD PO2 109.4 mmHg (80-100); ARTERIAL BLOOD TOTAL CO2 15.5 mmol/L (23-27)
[2019-04-04 13:09] LABS: ARTERIAL BLOOD FIO2 21%
--- NOTE | 2019-04-04 14:33 | PDOC PROGRESS REPORT ---
Subjective Progress Note for:: 04/04/19 Subjective:: This is a 63 yr old male who was admitted for acute encpehalopathy. He was found to have severe hyponatremia and was started on hypertonic saline. He went into acute respiratory failure deeemd to be from likely aspiration pneumonia and DTs and was intubated on 03/17. He was extubated on 03/20. 03/22: Patient was downgraded from ICU last night. This morning around 6 AM, patient went into AFib with RVR. Apparently, he was given 2 doses of IV Lopressor but he had persistent AFib in the 140s. Upon initial encounter, patient is still in AFib. He is slightly tachpyneic and has significant rales bilaterally with decreased breath sounds on the bases. He will be started on Cardizem drip and will be upgraded to IMCU. Chest x-ray yesterday appears to show worsening airspace disease and pleural effusions. Will pursue a chest CT. 2 PM: Patient reassessed. He is now in normal sinus rhythm on minimal Cardizem infusion (2.5). He appears to be breathing better and is saturating well on 4 l[address] NC. Chest CT shows significant pleural effusions bilaterally. He has been on Rocephin. Switch to Zosyn. Possible acute congestive heart failure. Start IV Lasix. Replace Potassium as needed. Will consult radiology if there is no improvement in pleural effusions with diuresis. Speech therapist has recommended keeping patient NPO over the next few days. 03/23: He remains on NSR on cardizem drip. He appears more conversant today and says he wants water but is not well oriented. Weaned off BIPAP and he is now saturating well on nasal cannula. He has diuresed well overnight. Will repeat CXR today to reassess effusions. Able to contact patient's son, Rohith who was updated about patient's status and plan of care. Discussed anticoagulation and he says he would have to discuss this further with his sister/DPMIHAI who is unreachable at the moment. 03/24: Currently on sinus rhythm on cardizem drip. He remains NPO until reassessment by speech tomorrow. He had significant improvement with aggressive diuresis. Repeat chest x-ray shows significant improvement of airspace disease with IV Lasix in 24 hrs. 03/25: No acute event overnight. He continues to improve significantly. He is more awake and alert today but appears deconditioned. He is comfortable and is saturating well on nasal cannula. Repeat CXR shows near complete resolution of bilateral airspace disease and bilateral effusions. Apparently we don't have speech therapy services today and he will be re-evaluated by speech tomorrow. Until then, he will remain NPO and will continue IV medications. He is currently in sinus rhythm on minimal dose of cardizem infusion. Lasix has been decreased to 40 mg daily. May be decreased further or discontinued in the next 24-28 hrs. 04/02: Reassumed care today. Patient apparently went into acute respiratory failure on 03/27. He was noted to be tachypneic and became unresponsive hence was reintubated. Repeat chest x-ray then showed basilar opacities. There was a question if patient might have aspirated. He is currently sedated and is saturating well on minimal vent settings at 21% FiO2. 04/03: He continues to saturate well on minimal vent settings. Repeat chest CT shows improved aeration of previously seen bilateral areas of consolidation and groundglass attenuation. There is also significant improvement of small bilateral pleural effusions. Minimal secretions from ET tube. We will continue with weaning trials. He has loose stools. 04/04: No acute event overnight. Per RN, when sedation is weaned down, patient is not following commands. Switched Diprivan to Precedex. Patient is a little more responsive on assessment. He has very minimal regard at this time. He did inconsistently squeezed this examiner's fingers on command but did not wiggle t oes or move feet when prompted to. He continues to have loose stools. Reason For Visit: SEVERE HYPONATREMIA Physical Exam Vital Signs: Temp Pulse Resp BP Pulse Ox 97.5 F 85 20 132/73 H 100 04/04/19 12:00 04/04/19 13:34 04/04/19 13:34 04/04/19 13:34 04/04/19 13:11 Intake & Output 04/03/19 04/04/19 04/05/19 06:59 06:59 06:59 Intake Total 4432 1464 389 Output Total 2129 4995 610 Balance 0487 -646 -826 Weight 129 lb 3.054 oz 134 lb 14.766 oz General appearance: PRESENT: other - Intubated, sedated Eye exam: PRESENT: conjunctiva pink, EOMI, PERRLA. ABSENT: scleral icterus Ear exam: PRESENT: normal external ear exam Neck exam: ABSENT: carotid bruit, JVD, lymphadenopathy, thyromegaly Respiratory exam: PRESENT: rhonchi. ABSENT: rales, wheezes Cardiovascular exam: PRESENT: RRR. ABSENT: diastolic murmur, rubs, systolic murmur Pulses: PRESENT: normal dorsalis pedis pul GI/Abdominal exam: PRESENT: normal bowel sounds, soft. ABSENT: distended, guarding, mass, organolmegaly, rebound, tenderness Rectal exam: PRESENT: deferred Neurological exam: PRESENT: other - Patient is a little more responsive on assessment. He has very minimal regard at this time. He did inconsistently squeezed this examiner's fingers on command but did not wiggle toes or move feet when prompted to. Results Laboratory Results: 04/04/19 09:25 04/04/19 03:54 04/04/19 04/04/19 04/04/19 03:54 03:54 09:25 WBC 16.9 H RBC 3.35 L Hgb 9.9 L Hct 29.5 L MCV 88 MCH 29.6 MCHC 33.6 RDW 15.6 H Plt Count 371 Seg Neutrophils % Not Reportable Lymphocytes % Not Reportable Monocytes % Not Reportable Eosinophils % Not Reportable Basophils % Not Reportable Absolute Neutrophils Not Reportable Absolute Lymphocytes Not Reportable Absolute Monocytes Not Reportable Absolute Eosinophils Not Reportable Absolute Basophils Not Reportable Carbonic Acid 0.52 L HCO3/H2CO3 Ratio 27:1 ABG pH 7.54 H ABG pCO2 17.4 L* ABG pO2 103.1 H ABG HCO3 14.4 L ABG O2 Saturation 98.4 H ABG Base Excess -5.8 FiO2 21% Sodium 131.9 L Potassium 4.6 Chloride 106 Carbon Dioxide 17 L Anion Gap 9 BUN 36 H Creatinine 0.64 Est GFR ( Amer) > 60 Est GFR (Non-Af Amer) > 60 Glucose 150 H Lactic Acid Calcium 8.7 Magnesium 1.8 04/04/19 04/04/19 09:25 12:30 WBC RBC Hgb Hct MCV MCH MCHC RDW Plt Count Seg Neutrophils % Lymphocytes % Monocytes % Eosinophils % Basophils % Absolute Neutrophils Absolute Lymphocytes Absolute Monocytes Absolute Eosinophils Absolute Basophils Carbonic Acid 0.51 L HCO3/H2CO3 Ratio 29:1 ABG pH 7.56 H ABG pCO2 17.0 L* ABG pO2 109.4 H ABG HCO3 15.0 L ABG O2 Saturation 98.7 H ABG Base Excess -4.8 FiO2 21% Sodium Potassium Chloride Carbon Dioxide Anion Gap BUN Creatinine Est GFR ( Amer) Est GFR (Non-Af Amer) Glucose Lactic Acid 1.9 Calcium Magnesium 03/15/19 03/15/19 03/21/19 13:23 13:23 03:25 Creatine Kinase 62 CK-MB (CK-2) 2.61 Troponin I 0.014 NT-Pro-B Natriuret Pep 21163 H 04/01/19 04:05 Creatine Kinase CK-MB (CK-2) Troponin I NT-Pro-B Natriuret Pep 5650 H Impressions: Head CTA 03/26/19 00:00 IMPRESSION: 1. No acute intracranial pathology. No noncontrast CT evidence of acute stroke or hemorrhage. Small vessel white matter disease. 2. No evidence of intracranial occlusion, stenosis, or aneurysm. 3. There is calcific atherosclerosis of the bilateral internal carotid artery origins with approximately 50% stenosis at the origin of the right internal carotid artery and greater than 70% stenosis of the origin of the left internal carotid artery. EVIDENCE OF ACUTE STROKE: NO. Neck CTA 03/26/19 09:21 IMPRESSION: 1. No acute intracranial pathology. No noncontrast CT evidence of acute stroke or hemorrhage. Small vessel white matter disease. 2. No evidence of intracranial occlusion, stenosis, or aneurysm. 3. There is calcific atherosclerosis of the bilateral internal carotid artery origins with approximately 50% stenosis at the origin of the right internal carotid artery and greater than 70% stenosis of the origin of the left internal carotid artery. EVIDENCE OF ACUTE STROKE: NO. KUB X-Ray 03/27/19 13:11 IMPRESSION: Nasogastric tube tip and side port in the stomach. Dilated small bowel loops in the left upper quadrant worrisome for small bowel obstruction versus ileus. Chest CT 04/03/19 07:00 IMPRESSION: 1. Improved aeration of previously seen bilateral areas of consolidation and ground-glass attenuation. Small bilateral pleural effusions, improved from prior. No new airspace disease. No pneumothorax. 2. Stable bilateral subacute anterior rib fractures. Head CT 04/03/19 08:55 IMPRESSION: 1. Stable chronic changes without evidence of new intracranial process. 2. Worsening opacification of the right maxillary sinus, likely secondary to in tubation. 3. Evidence of prior mastoidectomy with unchanged debris in the right mastoid cavity, possibly mycetoma. EVIDENCE OF ACUTE STROKE: NO. Chest X-Ray 04/04/19 06:00 IMPRESSION: Tip of an endotracheal tube is 1.9 cm from the raúl; recommend 3.1 cm retraction. Assessment and Plan - Diagnosis (1) Acute hypoxemic respiratory failure Is this a current diagnosis for this admission?: Yes Plan: Patient went into acute respiratory failure on 03/27 and was reintubated. He was noted to be tachypneic and became unresponsive hence was reintubated. Repeat chest x-ray then showed basilar opacities. There is a question if patient might have aspirated. He is currently sedated and is saturating well on minimal vent settings at 21% FiO2. 04/03: He continues to saturate well on minimal vent settings. Repeat chest CT shows improved aeration of previously seen bilateral areas of consolidation and groundglass attenuation. There is also significant improvement of small bilateral pleural effusions. Minimal secretions from ET tube. 04/04: He is doing well on minimal vent settings. Switched Diprivan to Precedex. Patient is a little more responsive on assessment. He has very minimal regard at this time. He did inconsistently squeezed this examiner's fingers on command but did not wiggle toes or move feet when prompted to. Will do SBT today. (2) Pleural effusion Is this a current diagnosis for this admission?: Yes Plan: Improved. Continue Lasix. (3) Metabolic acidosis Is this a current diagnosis for this admission?: Yes Plan: ABG shows respiratory alkalosis with metabolic acidosis. Suspect metabolic acidosis is from bicarb loss from diarrhea. Suspecting Zyvox associated diarrhea. C. difficile negative. Zyvox discontinued. We will give patient some oral bicarb. (4) Aspiration pneumonia Is this a current diagnosis for this admission?: Yes Plan: Previously on vancomycin and cefepime. Sputum cultures grew MRSA and he was s witched to linezolid per ID recommendation. Appreciate ID recommendations. Repeat chest CT does show improvement of bilateral airspace disease and effusion. Discontinued Zyvox. (5) New onset atrial fibrillation Is this a current diagnosis for this admission?: Yes Plan: Rate controlled. Continue aspirin and oral Cardizem. (6) Fluid overload Is this a current diagnosis for this admission?: Yes Plan: Improved. Continue Lasix. (7) COPD (chronic obstructive pulmonary disease) Qualifiers: Emphysema type: unspecified Is this a current diagnosis for this admission?: Yes Plan: Exacerbation resolved. DC solumedrol as steroids are likely contributing to his myopathy. (8) Hypokalemia Is this a current diagnosis for this admission?: Yes Plan: Resolved. (9) Hyponatremia Is this a current diagnosis for this admission?: Yes - Time Time Spent with patient: 25-34 minutes
[2019-04-04] MEDS ORDERED: SODIUM BICARBONATE 650 MG TABLET PO SCH (14:45)
[2019-04-04] MEDS: SODIUM BICARBONATE 650 MG TABLET NG SCH (21:47)
[2019-04-05] MEDS: LEVALBUTEROL HCL NEB 1.25 MG/3 ML AMPUL NEB SCH ×4 (02:39→19:54)
[2019-04-05] MEDS: IPRATROPIUM BROMIDE 0.02% NEB 0.5 MG/2.5 ML AMPUL NEB SCH ×4 (02:39→19:54)
[2019-04-05 03:55] LABS: ARTERIAL BLOOD BASE EXCESS -3.6 mmol/L; ARTERIAL BLOOD H2CO3 0.63 mmol/L (1.05-1.35); ARTERIAL BLOOD HCO3 17.3 mmol/L (20-24); ARTERIAL BLOOD O2 SATURATION 98.4 % (94-98); ARTERIAL BLOOD PH 7.54 (7.35-7.45); ARTERIAL BLOOD PO2 105.2 mmHg (80-100)
[2019-04-05 03:56] LABS: ARTERIAL BLOOD FIO2 21%
[2019-04-05 03:58] LABS: ARTERIAL BLOOD PCO2 20.9 mmHg (35-45)
[2019-04-05 04:00] LABS: HEMOGLOBIN 10.3 g/dL (13.5-17.0); MEAN CORPUSCULAR HEMOGLOBIN 29.4 pg (27.0-33.4); MEAN CORPUSCULAR HGB CONC 33.3 g/dL (32.0-36.0); MEAN CORPUSCULAR VOLUME 88 fl (80-97); PLATELET COUNT 425 10^3/uL (150-450); RED BLOOD COUNT 3.51 10^6/uL (4.35-5.55); RED CELL DISTRIBUTION WIDTH 15.7 % (11.5-14.0); WHITE BLOOD COUNT 20.9 10^3/uL (4.0-10.5)
[2019-04-05 04:11] LABS: ANION GAP 6 (5-19); BLOOD UREA NITROGEN 32 mg/dL (7-20); CALCIUM 8.4 mg/dL (8.4-10.2); CARBON DIOXIDE 20 mmol/L (22-30); CHLORIDE 106 mmol/L (98-107); GLUCOSE 100 mg/dL (75-110); POTASSIUM 3.8 mmol/L (3.6-5.0); SODIUM 131.5 mmol/L (137-145)
[2019-04-05 04:43] LABS: ABSOLUTE LYMPHOCYTES# (MANUAL) 2.1 10^3/uL (0.5-4.7); ABSOLUTE NEUTROPHILS# (MANUAL) 17.8 10^3/uL (1.7-8.2); BASOPHILS % (MANUAL) 0 % (0-2); EOSINOPHILS % (MANUAL) 0 % (0-6); LYMPHOCYTES % (MANUAL) 10 % (13-45); METAMYELOCYTES % (MANUAL) 2 % (0); MONOCYTES % (MANUAL) 5 % (3-13); SEGMENTED NEUTROPHILS % (MAN) 83 % (42-78); TOTAL CELLS COUNTED 100
[2019-04-05 04:44] LABS: PLATELET CLUMPS PRESENT; PLATELET COMMENT ADEQUATE
[2019-04-05 04:45] LABS: ANISOCYTOSIS SLIGHT; BURR CELLS 1+; OVALOCYTES SLIGHT; SCHISTOCYTES SLIGHT
[2019-04-05] MEDS: FUROSEMIDE INJ/PF 20 MG/2 ML SDV IV SCH (05:36)
[2019-04-05] MEDS: POTASSIUM CHLORIDE 20 MEQ PACKET NG SCH ×2 (05:36→12:09)
[2019-04-05] MEDS: HEPARIN SOD (PORCINE) 5,000 UNIT/ML 1 ML SYRINGE SUBCUT SCH ×3 (05:37→21:31)
[2019-04-05] MEDS: DILTIAZEM HCL 30 MG TABLET NG SCH ×3 (05:37→18:30)
[2019-04-05] MEDS: INSULIN LISPRO 100 UNIT/ML 3 ML VIAL SUBCUT SCH ×3 (05:37→18:29)
[2019-04-05] MEDS: HYDRALAZINE HCL 25 MG TABLET NG SCH ×3 (07:11→21:32)
--- NOTE | 2019-04-05 07:34 | RADIOLOGY REPORT (SQ) ---
EXAM DESCRIPTION: XR CHEST 1 VIEW COMPLETED DATE/TME: 04/05/2019 06:00 CLINICAL HISTORY: 63 years Male, RESP FAILURE COMPARISON: One day prior. NUMBER OF VIEWS/TECHNIQUE: 1/AP FINDINGS: Increased lung volume. Adequate appearing endotracheal tube. Adequate appearing enteric tube partially obscured. Adequate appearing right subclavian central line. Atherosclerotic vascular disease. Normal cardiac silhouette size. No pneumothorax. Stable bony thorax. IMPRESSION: No significant change.
[2019-04-05] MEDS: BUDESONIDE NEB 0.5 MG/2 ML AMPUL NEB SCH ×2 (09:10→19:54)
[2019-04-05] MEDS: AMINO AC/PROTEIN HYDR/WHEY PRO 11 GM/45 ML PKT NG SCH ×2 (10:37→18:30)
[2019-04-05] MEDS: PANTOPRAZOLE SODIUM 40 MG VIAL IV SCH (10:37)
[2019-04-05] MEDS: SODIUM BICARBONATE 650 MG TABLET NG SCH ×2 (10:38→21:32)
[2019-04-05] MEDS: FOLIC ACID 1 MG TABLET NG SCH (10:38)
[2019-04-05] MEDS: ASPIRIN 81 MG TABLET, CHEWABLE NG SCH (10:38)
[2019-04-05] MEDS: THIAMINE HCL 100 MG TABLET NG SCH (10:38)
[2019-04-05] MEDS: LISINOPRIL 5 MG TABLET NG SCH (10:38)
--- NOTE | 2019-04-05 13:19 | NEURO WORKBENCH EEG REPORT ---
EEG Report Patient: Mc Roper ID: [id number] Referring Doctor: Antoine Treviño Date: 04/05/2019 Reason for study: Evaluate for cerebral activity Medications: Pulmicort, Cadizem, Lasix, Apresoline, Insulin, Atrovent, Xopenex, Protonix History: This is a 63year old male with a history of HTN, CHF, COPD, Depression, Pneumonia and respiratory failure, and hyponatremia. The patient was taken off of diprovan April 04 at 10:30 AM. This EEG was requested for evaluation of cerebral activity. EEG Interpretation This EEG was recorded in the ICU and the patient is intubated. There were no apparent spontaneous eye openings or closings, but the information technology officer manually opened and closed the patients eyes multiple times. Tthere was no significant reactivity of the EEG to passive eye opening and closure. With eye closure there is no occipital dominant rhythm present. The backgound EEG shows predominantly diffuse polymorphic low amplitude 0.5-2 Hz delta activity with frequent intermittent superimposed diffuse 8-12 Hz alpha activity. There were no asymmetries in amplitude or frequencies. Photic stimulation was done and photic driving was not noted. There was no normal sleep architecture noted. There was prominent artifact in T4, F4, and F7 limited interpretation. There was no epileptiform activity (meaning no sharp waves or spikes), and there were no seizures noted. The EKG showed a regular rhythm with rates typically in the 60-70 range. EEG Impression This is a markedly abnormal EEG and consistent with diffuse cerebral dysfunction which is non-specific for etiology. Likely considerations would include diffuse hypoxic injury, toxic-metabolic derangements, hypothermia (patient temperature was not noted), or prolonged post-ictal state. It is noted that diprovan was discontinued approximately 24 hours prior to this EEG. There appears to be no meaningful differences in this EEG compared to the one recorded on April 03, 2019. There were no EEG findings consistent with epilepsy, but if there is strong concern for clinical or sub-clinical seizure activity then long-term EEG monitoring would be advised or additional repeat routine EEGs if long-term monitoring is not available. [facility]
--- NOTE | 2019-04-05 16:29 | PDOC PROGRESS REPORT ---
Subjective Progress Note for:: 04/05/19 Subjective:: This is a 63 yr old male who was admitted for acute encpehalopathy. He was found to have severe hyponatremia and was started on hypertonic saline. He went into acute respiratory failure deeemd to be from likely aspiration pneumonia and DTs and was intubated on 03/17. He was extubated on 03/20. 03/22: Patient was downgraded from ICU last night. This morning around 6 AM, patient went into AFib with RVR. Apparently, he was given 2 doses of IV Lopressor but he had persistent AFib in the 140s. Upon initial encounter, patient is still in AFib. He is slightly tachpyneic and has significant rales bilaterally with decreased breath sounds on the bases. He will be started on Cardizem drip and will be upgraded to IMCU. Chest x-ray yesterday appears to show worsening airspace disease and pleural effusions. Will pursue a chest CT. 2 PM: Patient reassessed. He is now in normal sinus rhythm on minimal Cardizem infusion (2.5). He appears to be breathing better and is saturating well on 4 l[address] NC[address] CT shows significant pleural effusions bilaterally. He has been on Rocephin. Switch to Zosyn. Possible acute congestive heart failure. Start IV Lasix. Replace Potassium as needed. Will consult radiology if there is no improvement in pleural effusions with diuresis. Speech therapist has recommended keeping patient NPO over the next few days. 03/23: He remains on NSR on cardizem drip. He appears more conversant today and says he wants water but is not well oriented. Weaned off BIPAP and he is now saturating well on nasal cannula. He has diuresed well overnight. Will repeat CXR today to reassess effusions. Able to contact patient's son, Rohith who was updated about patient's status and plan of care. Discussed anticoagulation and he says he would have to discuss this further with his sister/DPMIHAI who is unreachable at the moment. 03/24: Currently on sinus rhythm on cardizem drip. He remains NPO until reassessment by speech tomorrow. He had significant improvement with aggressive diuresis. Repeat chest x-ray shows significant improvement of airspace disease with IV Lasix in 24 hrs. 03/25: No acute event overnight. He continues to improve significantly. He is more awake and alert today but appears deconditioned. He is comfortable and is saturating well on nasal cannula. Repeat CXR shows near complete resolution of bilateral airspace disease and bilateral effusions. Apparently we don't have speech therapy services today and he will be re-evaluated by speech tomorrow. Until then, he will remain NPO and will continue IV medications. He is currently in sinus rhythm on minimal dose of cardizem infusion. Lasix has been decreased to 40 mg daily. May be decreased further or discontinued in the next 24-28 hrs. 04/02: Reassumed care today. Patient apparently went into acute respiratory failure on 03/27. He was noted to be tachypneic and became unresponsive hence was reintubated. Repeat chest x-ray then showed basilar opacities. There was a question if patient might have aspirated. He is currently sedated and is saturating well on minimal vent settings at 21% FiO2. 04/03: He continues to saturate well on minimal vent settings. Repeat chest CT shows improved aeration of previously seen bilateral areas of consolidation and groundglass attenuation. There is also significant improvement of small bilateral pleural effusions. Minimal secretions from ET tube. We will continue with weaning trials. He has loose stools. 04/04: Per RN, when sedation is weaned down, patient is not following commands. Switched Diprivan to Precedex. Patient is a little more responsive on assessment. He has very minimal regard at this time. He did inconsistently squeezed this examiner's fingers on command but did not wiggle toes or move feet when prompted to. He continues to have loose stools. 04/05: No acute event overnight. Currently off sedation. He saturating well on minimal vent settings. He continues to inconsistently move fingers on prompting. He is currently doing well on SBT's. Discussed with ANGELICA Smith over the phone in length. Discussed plan to possibly extubate tomorrow. Today expressed she is inclined not to have patient reintubated if the need arises again and will be switched to DNR/DNI status after extubation. Reason For Visit: SEVERE HYPONATREMIA Physical Exam Vital Signs: Temp Pulse Resp BP Pulse Ox 98.8 F 80 21 H 117/64 97 04/05/19 15:00 04/05/19 14:11 04/05/19 15:00 04/05/19 14:52 04/05/19 15:40 Intake & Output 04/04/19 04/05/19 04/06/19 06:59 06:59 06:59 Intake Total 1464 839 0 Output Total 2110 2185 1200 Balance -346 -9382 -1200 Weight 134 lb 14.766 oz 124 lb 8.979 oz General appearance: PRESENT: no acute distress Head exam: PRESENT: atraumatic, normocephalic Eye exam: PRESENT: conjunctiva pink, EOMI, PERRLA. ABSENT: scleral icterus Ear exam: PRESENT: normal external ear exam Mouth exam: PRESENT: moist, tongue midline Neck exam: ABSENT: carotid bruit, JVD, lymphadenopathy, thyromegaly Respiratory exam: PRESENT: rhonchi. ABSENT: rales, wheezes Cardiovascular exam: PRESENT: RRR. ABSENT: diastolic murmur, rubs, systolic murmur Pulses: PRESENT: normal dorsalis pedis pul GI/Abdominal exam: PRESENT: normal bowel sounds, soft. ABSENT: distended, guarding, mass, organolmegaly, rebound, tenderness Rectal exam: PRESENT: deferred Neurological exam: PRESENT: awake, other - Intubated Results Laboratory Results: 04/05/19 03:47 04/05/19 03:47 04/05/19 04/05/19 04/05/19 03:47 03:47 03:47 WBC 20.9 H RBC 3.51 L Hgb 10.3 L Hct 31.0 L MCV 88 MCH 29.4 MCHC 33.3 RDW 15.7 H Plt Count 425 Seg Neutrophils % Not Reportable Lymphocytes % Not Reportable Monocytes % Not Reportable Eosinophils % Not Reportable Basophils % Not Reportable Absolute Neutrophils Not Reportable Absolute Lymphocytes Not Reportable Absolute Monocytes Not Reportable Absolute Eosinophils Not Reportable Absolute Basophils Not Reportable Carbonic Acid 0.63 L HCO3/H2CO3 Ratio 27:1 ABG pH 7.54 H ABG pCO2 20.9 L* ABG pO2 105.2 H ABG HCO3 17.3 L ABG O2 Saturation 98.4 H ABG Base Excess -3.6 FiO2 21% Sodium 131.5 L Potassium 3.8 Chloride 106 Carbon Dioxide 20 L Anion Gap 6 BUN 32 H Creatinine 0.62 Est GFR ( Amer) > 60 Est GFR (Non-Af Amer) > 60 Glucose 100 Calcium 8.4 Magnesium 1.8 04/04/19 11:57 Sputum Gram Stain - Final 03/15/19 03/15/19 03/21/19 13:23 13:23 03:25 Creatine Kinase 62 CK-MB (CK-2) 2.61 Troponin I 0.014 NT-Pro-B Natriuret Pep 09363 H 04/01/19 04:05 Creatine Kinase CK-MB (CK-2) Troponin I NT-Pro-B Natriuret Pep 5650 H Impressions: Head CTA 03/26/19 00:00 IMPRESSION: 1. No acute intracranial pathology. No noncontrast CT evidence of acute stroke or hemorrhage. Small vessel white matter disease. 2. No evidence of intracranial occlusion, stenosis, or aneurysm. 3. There is calcific atherosclerosis of the bilateral internal carotid artery origins with approximately 50% stenosis at the origin of the right internal carotid artery and greater than 70% stenosis of the origin of the left internal carotid artery. EVIDENCE OF ACUTE STROKE: NO. Neck CTA 03/26/19 09:21 IMPRESSION: 1. No acute intracranial pathology. No noncontrast CT evidence of acute stroke or hemorrhage. Small vessel white matter disease. 2. No evidence of intracranial occlusion, stenosis, or aneurysm. 3. There is calcific atherosclerosis of the bilateral internal carotid artery origins with approximately 50% stenosis at the origin of the right internal carotid artery and greater than 70% stenosis of the origin of the left internal carotid artery. EVIDENCE OF ACUTE STROKE: NO. KUB X-Ray 03/27/19 13:11 IMPRESSION: Nasogastric tube tip and side port in the stomach. Dilated small bowel loops in the left upper quadrant worrisome for small bowel obstruction versus ileus. Chest CT 04/03/19 07:00 IMPRESSION: 1. Improved aeration of previously seen bilateral areas of consolidation and ground-glass attenuation. Small bilateral pleural effusions, improved from prior. No new airspace disease. No pneumothorax. 2. Stable bilateral subacute anterior rib fractures. Head CT 04/03/19 08:55 IMPRESSION: 1. Stable chronic changes without evidence of new intracranial process. 2. Worsening opacification of the right maxillary sinus, likely secondary to intubation. 3. Evidence of prior mastoidectomy with unchanged debris in the right mastoid cavity, possibly mycetoma. EVIDENCE OF ACUTE STROKE: NO. Chest X-Ray 04/05/19 06:00 IMPRESSION: No significant change. Assessment and Plan - Diagnosis (1) Acute hypoxemic respiratory failure Is this a current diagnosis for this admission?: Yes Plan: Patient went into acute respiratory failure on 03/27 and was reintubated. He was noted to be tachypneic and became unresponsive hence was reintubated. Repeat chest x-ray then showed basilar opacities. There is a question if patient might have aspirated. He is currently sedated and is saturating well on minimal vent settings at 21% FiO2. 04/03: He continues to saturate well on minimal vent settings. Repeat chest CT shows improved aeration of previously seen bilateral areas of consolidation and groundglass attenuation. There is also significant improvement of small bilateral pleural effusions. Minimal secretions from ET tube. 04/04: He is doing well on minimal vent settings. Switched Diprivan to Precedex. Patient is a little more responsive on assessment. He has very minimal regard at this time. He did inconsistently squeezed this examiner's fingers on command but did not wiggle toes or move feet when prompted to. Will do SBT today. 04/05: Currently off sedation. He saturating well on minimal vent settings. He continues to inconsistently move fingers on prompting. He is currently doing well on SBT's. Discussed with ANGELICA Smith over the phone in length. Discussed plan to possibly extubate tomorrow. Today expressed she is inclined not to have patient reintubated if the need arises again and will be switched to DNR/DNI status after extubation. (2) Pleural effusion Is this a current diagnosis for this admission?: Yes Plan: Improved. Continue Lasix. 04/05: Almost resolved on repeat chest x-ray. Hold off on Lasix as he now appears clinically on the dry side. (3) Metabolic acidosis Is this a current diagnosis for this admission?: Yes Plan: ABG shows respiratory alkalosis with metabolic acidosis. Suspect metabolic acidosis is from bicarb loss from diarrhea. Suspecting Zyvox associated d iarrhea. C. difficile negative. Zyvox discontinued. We will give patient some oral bicarb. 04/05: Improved with oral bicarb. (4) Aspiration pneumonia Is this a current diagnosis for this admission?: Yes Plan: Resolved. Previously on vancomycin and cefepime. Sputum cultures grew MRSA and he was switched to linezolid per ID recommendation. Appreciate ID recommendations. Repeat chest CT does show improvement of bilateral airspace disease and effusion. Discontinued Zyvox. (5) New onset atrial fibrillation Is this a current diagnosis for this admission?: Yes Plan: Rate controlled. Continue aspirin and oral Cardizem. (6) Fluid overload Is this a current diagnosis for this admission?: Yes Plan: Resolved. Discontinue Lasix. (7) COPD (chronic obstructive pulmonary disease) Qualifiers: Emphysema type: unspecified Is this a current diagnosis for this admission?: Yes Plan: Exacerbation resolved. DC solumedrol as steroids are likely contributing to his myopathy. (8) Hypokalemia Is this a current diagnosis for this admission?: Yes Plan: Resolved. (9) Hyponatremia Is this a current diagnosis for this admission?: Yes - Time Time Spent with patient: 25-34 minutes
[2019-04-06] MEDS: INSULIN LISPRO 100 UNIT/ML 3 ML VIAL SUBCUT SCH ×4 (00:58→17:48)
[2019-04-06] MEDS: DILTIAZEM HCL 30 MG TABLET NG SCH ×4 (01:00→17:48)
[2019-04-06] MEDS: LEVALBUTEROL HCL NEB 1.25 MG/3 ML AMPUL NEB SCH ×4 (02:00→20:31)
[2019-04-06] MEDS: IPRATROPIUM BROMIDE 0.02% NEB 0.5 MG/2.5 ML AMPUL NEB SCH ×4 (02:00→20:30)
[2019-04-06] MEDS: HYDRALAZINE HCL 25 MG TABLET NG SCH ×3 (05:13→22:13)
[2019-04-06] MEDS: HEPARIN SOD (PORCINE) 5,000 UNIT/ML 1 ML SYRINGE SUBCUT SCH ×3 (05:14→22:14)
[2019-04-06 05:15] LABS: ARTERIAL BLOOD BASE EXCESS -3.2 mmol/L; ARTERIAL BLOOD H2CO3 0.61 mmol/L (1.05-1.35); ARTERIAL BLOOD HCO3 17.5 mmol/L (20-24); ARTERIAL BLOOD O2 SATURATION 98.6 % (94-98); ARTERIAL BLOOD PH 7.55 (7.35-7.45); ARTERIAL BLOOD TOTAL CO2 18.1 mmol/L (23-27)
[2019-04-06 05:17] LABS: ARTERIAL BLOOD FIO2 21%
[2019-04-06 05:18] LABS: ARTERIAL BLOOD PCO2 20.3 mmHg (35-45)
[2019-04-06 05:19] LABS: HEMATOCRIT 29.6 % (37.9-51.0); HEMOGLOBIN 10.1 g/dL (13.5-17.0); MEAN CORPUSCULAR HEMOGLOBIN 30.1 pg (27.0-33.4); MEAN CORPUSCULAR VOLUME 88 fl (80-97); PLATELET COUNT 375 10^3/uL (150-450); RED BLOOD COUNT 3.34 10^6/uL (4.35-5.55); RED CELL DISTRIBUTION WIDTH 15.7 % (11.5-14.0); WHITE BLOOD COUNT 16.3 10^3/uL (4.0-10.5)
[2019-04-06 05:29] LABS: ANION GAP 9 (5-19); BLOOD UREA NITROGEN 27 mg/dL (7-20); CALCIUM 8.5 mg/dL (8.4-10.2); CARBON DIOXIDE 19 mmol/L (22-30); CHLORIDE 105 mmol/L (98-107); GLUCOSE 82 mg/dL (75-110); POTASSIUM 3.9 mmol/L (3.6-5.0); SODIUM 132.9 mmol/L (137-145)
[2019-04-06 05:40] LABS: ABSOLUTE MONOCYTES # (MANUAL) 1.1 10^3/uL (0.1-1.4); ABSOLUTE NEUTROPHILS# (MANUAL) 13.2 10^3/uL (1.7-8.2); BAND NEUTROPHILS % (MANUAL) 6 % (3-5); BASOPHILS % (MANUAL) 0 % (0-2); EOSINOPHILS % (MANUAL) 0 % (0-6); LYMPHOCYTES % (MANUAL) 12 % (13-45); MONOCYTES % (MANUAL) 7 % (3-13); SEGMENTED NEUTROPHILS % (MAN) 75 % (42-78); TOTAL CELLS COUNTED 100
[2019-04-06 05:41] LABS: PLATELET COMMENT ADEQUATE; RBC MORPHOLOGY COMMENT NORMO-CYTIC/CHROMIC
--- NOTE | 2019-04-06 07:16 | RADIOLOGY REPORT (SQ) ---
EXAM DESCRIPTION: XR CHEST 1 VIEW COMPLETED DATE/TME: 04/06/2019 06:00 CLINICAL HISTORY: 63 years Male, resp failure COMPARISON: One day prior. NUMBER OF VIEWS/TECHNIQUE: 1/AP FINDINGS: Clear lungs of adequate volume, and normal cardiac silhouette. Adequate appearing endotracheal tube. Adequate appearing enteric tube partially obscured. Adequate appearing right subclavian central line. Atherosclerotic vascular disease. Normal cardiac silhouette size. No pneumothorax. Stable bony thorax. IMPRESSION: No significant change.
[2019-04-06] MEDS: BUDESONIDE NEB 0.5 MG/2 ML AMPUL NEB SCH ×2 (08:26→20:31)
[2019-04-06] MEDS: ASPIRIN 81 MG TABLET, CHEWABLE NG SCH (10:08)
[2019-04-06] MEDS: LISINOPRIL 5 MG TABLET NG SCH (10:08)
[2019-04-06] MEDS: FOLIC ACID 1 MG TABLET NG SCH (10:08)
[2019-04-06] MEDS: THIAMINE HCL 100 MG TABLET NG SCH (10:09)
[2019-04-06] MEDS: SODIUM BICARBONATE 650 MG TABLET NG SCH ×2 (10:09→22:13)
[2019-04-06] MEDS: PANTOPRAZOLE SODIUM 40 MG VIAL IV SCH (10:09)
[2019-04-06] MEDS: AMINO AC/PROTEIN HYDR/WHEY PRO 11 GM/45 ML PKT NG SCH ×2 (10:15→17:48)
--- NOTE | 2019-04-06 13:15 | PDOC PROGRESS REPORT ---
Subjective Progress Note for:: 04/06/19 Subjective:: This is a 63 yr old male who was admitted for acute encpehalopathy. He was found to have severe hyponatremia and was started on hypertonic saline. He went into acute respiratory failure deeemd to be from likely aspiration pneumonia and DTs and was intubated on 03/17. He was extubated on 03/20. 03/22: Patient was downgraded from ICU last night. This morning around 6 AM, patient went into AFib with RVR. Apparently, he was given 2 doses of IV Lopressor but he had persistent AFib in the 140s. Upon initial encounter, patient is still in AFib. He is slightly tachpyneic and has significant rales bilaterally with decreased breath sounds on the bases. He will be started on Cardizem drip and will be upgraded to IMCU. Chest x-ray yesterday appears to show worsening airspace disease and pleural effusions. Will pursue a chest CT. 2 PM: Patient reassessed. He is now in normal sinus rhythm on minimal Cardizem infusion (2.5). He appears to be breathing better and is saturating well on 4 l[address] NC[address] Chest CT shows significant pleural effusions bilaterally. He has been on Rocephin. Switch to Zosyn. Possible acute congestive heart failure. Start IV Lasix. Replace Potassium as needed. Will consult radiology if there is no improvement in pleural effusions with diuresis. Speech therapist has recommended keeping patient NPO over the next few days. 03/23: He remains on NSR on cardizem drip. He appears more conversant today and says he wants water but is not well oriented. Weaned off BIPAP and he is now saturating well on nasal cannula. He has diuresed well overnight. Will repeat CXR today to reassess effusions. Able to contact patient's son, Rohith who was updated about patient's status and plan of care. Discussed anticoagulation and he says he would have to discuss this further with his sister/DPMIHAI who is unreachable at the moment. 03/24: Currently on sinus rhythm on cardizem drip. He remains NPO until reassessment by speech tomorrow. He had significant improvement with aggressive diuresis. Repeat chest x-ray shows significant improvement of airspace disease with IV Lasix in 24 hrs. 03/25: No acute event overnight. He continues to improve significantly. He is more awake and alert today but appears deconditioned. He is comfortable and is saturating well on nasal cannula. Repeat CXR shows near complete resolution of bilateral airspace disease and bilateral effusions. Apparently we don't have speech therapy services today and he will be re-evaluated by speech tomorrow. Until then, he will remain NPO and will continue IV medications. He is currently in sinus rhythm on minimal dose of cardizem infusion. Lasix has been decreased to 40 mg daily. May be decreased further or discontinued in the next 24-28 hrs. 04/02: Reassumed care today. Patient apparently went into acute respiratory failure on 03/27. He was noted to be tachypneic and became unresponsive hence was reintubated. Repeat chest x-ray then showed basilar opacities. There was a question if patient might have aspirated. He is currently sedated and is saturating well on minimal vent settings at 21% FiO2. 04/03: He continues to saturate well on minimal vent settings. Repeat chest CT shows improved aeration of previously seen bilateral areas of consolidation and groundglass attenuation. There is also significant improvement of small bilateral pleural effusions. Minimal secretions from ET tube. We will continue with weaning trials. He has loose stools. 04/04: Per RN, when sedation is weaned down, patient is not following commands. Switched Diprivan to Precedex. Patient is a little more responsive on assessment. He has very minimal regard at this time. He did inconsistently squeezed this examiner's fingers on command but did not wiggle toes or move feet when prompted to. He continues to have loose stools. 04/05: Currently off sedation. He saturating well on minimal vent settings. He continues to inconsistently move fingers on prompting. He is currently doing well on SBT's. Discussed with ANGELICA Smith over the phone in length. Discussed plan to possibly extubate tomorrow. Today she expressed she is inclined not to have patient reintubated if the need arises again and will be switched to DNR/DNI status after extubation. 04/06: No acute event overnight. He is off sedation and is saturating well on minimal vent settings. Placed patient on weaning trial today but he subsequently developed transient apneic episodes on CPAP mode. He is a little more responsive today. He is able to consistently squeeze this examiner's fingers is and able to weakly wiggle his toes and raise his eyebrows on command. Reason For Visit: SEVERE HYPONATREMIA Physical Exam Vital Signs: Temp Pulse Resp BP Pulse Ox 98.4 F 71 16 101/54 L 100 04/06/19 08:22 04/06/19 08:30 04/06/19 08:30 04/06/19 08:22 04/06/19 08:30 Intake & Output 04/05/19 04/06/19 04/07/19 06:59 06:59 06:59 Intake Total 839 300 Output Total 2182014 150 Balance -1346 -1715 -150 Weight 124 lb 8.979 oz 122 lb 5.705 oz General appearance: PRESENT: other - Intubated, a little more responsive today Head exam: PRESENT: atraumatic, normocephalic Eye exam: PRESENT: conjunctiva pink, EOMI, PERRLA. ABSENT: scleral icterus Ear exam: PRESENT: normal external ear exam Mouth exam: PRESENT: moist, tongue midline Neck exam: ABSENT: carotid bruit, JVD, lymphadenopathy, thyromegaly Respiratory exam: PRESENT: rhonchi. ABSENT: rales, wheezes Cardiovascular exam: PRESENT: RRR. ABSENT: diastolic murmur, rubs, systolic murmur Pulses: PRESENT: normal dorsalis pedis pul GI/Abdominal exam: PRESENT: normal bowel sounds, soft. ABSENT: distended, guarding, mass, organolmegaly, rebound, tenderness Rectal exam: PRESENT: deferred Extremities exam: PRESENT: other - edematous arms Neurological exam: PRESENT: alert, awake, other - Intubated Results Laboratory Results: 04/06/19 05:03 04/06/19 05:03 04/06/19 04/06/19 04/06/19 05:03 05:03 05:03 WBC 16.3 H RBC 3.34 L Hgb 10.1 L Hct 29.6 L MCV 88 MCH 30.1 MCHC 34.0 RDW 15.7 H Plt Count 375 Seg Neutrophils % Not Reportable Lymphocytes % Not Reportable Monocytes % Not Reportable Eosinophils % Not Reportable Basophils % Not Reportable Absolute Neutrophils Not Reportable Absolute Lymphocytes Not Reportable Absolute Monocytes Not Reportable Absolute Eosinophils Not Reportable Absolute Basophils Not Reportable Carbonic Acid 0.61 L HCO3/H2CO3 Ratio 28:1 ABG pH 7.55 H ABG pCO2 20.3 L* ABG pO2 110.0 H ABG HCO3 17.5 L ABG O2 Saturation 98.6 H ABG Base Excess -3.2 FiO2 21% Sodium 132.9 L Potassium 3.9 Chloride 105 Carbon Dioxide 19 L Anion Gap 9 BUN 27 H Creatinine 0.56 Est GFR ( Amer) > 60 Est GFR (Non-Af Amer) > 60 Glucose 82 Calcium 8.5 Magnesium 1.8 04/04/19 11:57 Sputum Gram Stain - Final 03/15/19 03/15/19 03/21/19 13:23 13:23 03:25 Creatine Kinase 62 CK-MB (CK-2) 2.61 Troponin I 0.014 NT-Pro-B Natriuret Pep 35641 H 04/01/19 04:05 Creatine Kinase CK-MB (CK-2) Troponin I NT-Pro-B Natriuret Pep 5650 H Impressions: Head CTA 03/26/19 00:00 IMPRESSION: 1. No acute intracranial pathology. No noncontrast CT evidence of acute stroke or hemorrhage. Small vessel white matter disease. 2. No evidence of intracranial occlusion, stenosis, or aneurysm. 3. There is calcific atherosclerosis of the bilateral internal carotid artery origins with approximately 50% stenosis at the origin of the right internal carotid artery and greater than 70% stenosis of the origin of the left internal carotid artery. EVIDENCE OF ACUTE STROKE: NO. Neck CTA 03/26/19 09:21 IMPRESSION: 1. No acute intracranial pathology. No noncontrast CT evidence of acute stroke or hemorrhage. Small vessel white matter disease. 2. No evidence of intracranial occlusion, stenosis, or aneurysm. 3. There is calcific atherosclerosis of the bilateral internal carotid artery origins with approximately 50% stenosis at the origin of the right internal carotid artery and greater than 70% stenosis of the origin of the left internal carotid artery. EVIDENCE OF ACUTE STROKE: NO. KUB X-Ray 03/27/19 13:11 IMPRESSION: Nasogastric tube tip and side port in the stomach. Dilated small bowel loops in the left upper quadrant worrisome for small bowel obstruction versus ileus. Chest CT 04/03/19 07:00 IMPRESSION: 1. Improved aeration of previously seen bilateral areas of consolidation and ground-glass attenuation. Small bilateral pleural effusions, improved from prior. No new airspace disease. No pneumothorax. 2. Stable bilateral subacute anterior rib fractures. Head CT 04/03/19 08:55 IMPRESSION: 1. Stable chronic changes without evidence of new intracranial process. 2. Worsening opacification of the right maxillary sinus, likely secondary to intubation. 3. Evidence of prior mastoidectomy with unchanged debris in the right mastoid cavity, possibly mycetoma. EVIDENCE OF ACUTE STROKE: NO. Chest X-Ray 04/06/19 06:00 IMPRESSION: No significant change. Assessment and Plan - Diagnosis (1) Acute hypoxemic respiratory failure Is this a current diagnosis for this admission?: Yes Plan: Patient went into acute respiratory failure on 03/27 and was reintubated. He was noted to be tachypneic and became unresponsive hence was reintubated. Repeat chest x-ray then showed basilar opacities. There is a question if patient might have aspirated. He is currently sedated and is saturating well on minimal vent settings at 21% FiO2. 04/03: He continues to saturate well on minimal vent settings. Repeat chest CT shows improved aeration of previously seen bilateral areas of consolidation and groundglass attenuation. There is also significant improvement of small bilateral pleural effusions. Minimal secretions from ET tube. 04/04: He is doing well on minimal vent settings. Switched Diprivan to Precedex. Patient is a little more responsive on assessment. He has very minimal regard at this time. He did inconsistently squeezed this examiner's fingers on command but did not wiggle toes or move feet when prompted to. Will do SBT today. 04/05: Currently off sedation. He saturating well on minimal vent settings. He continues to inconsistently move fingers on prompting. He is currently doing well on SBT's. Discussed with ANEGLICA Smith over the phone in length. Discussed plan to possibly extubate tomorrow. Today she expressed she is inclined not to have patient reintubated if the need arises again and will be switched to DNR/DNI status after extubation. 04/06: He is off sedation and is saturating well on minimal vent settings. Placed patient on weaning trial today but he subsequently developed transient apneic episodes on CPAP mode. He is a little more responsive today. He is able to consistently squeeze this examiner's fingers is and able to weakly wiggle his toes and raise his eyebrows on command. (2) Pleural effusion Is this a current diagnosis for this admission?: Yes Plan: Improved. Continue Lasix. 04/05: Almost resolved on repeat chest x-ray. Hold off on Lasix as he now appears clinically on the dry side. (3) Metabolic acidosis Is this a current diagnosis for this admission?: Yes Plan: ABG shows respiratory alkalosis with metabolic acidosis. Suspect metabolic acidosis is from bicarb loss from diarrhea. Suspecting Zyvox associated diarrhea. C. difficile negative. Zyvox discontinued. We will give patient some oral bicarb. 04/05: Improved with oral bicarb. (4) Aspiration pneumonia Is this a current diagnosis for this admission?: Yes Plan: Resolved. Previously on vancomycin and cefepime. Sputum cultures grew MRSA and he was switched to linezolid per ID recommendation. Appreciate ID recommendations. Repeat chest CT does show improvement of bilateral airspace disease and effusion. Discontinued Zyvox. (5) New onset atrial fibrillation Is this a current diagnosis for this admission?: Yes Plan: Rate controlled. Continue aspirin and oral Cardizem. (6) Fluid overload Is this a current diagnosis for this admission?: Yes Plan: Resolved. Discontinue Lasix. (7) COPD (chronic obstructive pulmonary disease) Qualifiers: Emphysema type: unspecified Is this a current diagnosis for this admission?: Yes Plan: Exacerbation resolved. DC solumedrol as steroids are likely contributing to his myopathy. (8) Hypokalemia Is this a current diagnosis for this admission?: Yes Plan: Resolved. (9) Hyponatremia Is this a current diagnosis for this admission?: Yes Plan: Initially received hypertonic saline on admission. - Time Time Spent with patient: 25-34 minutes
[2019-04-06] MEDS: NYSTATIN 500000 UNIT/5 ML UDCUP PO SCH ×3 (17:47→22:13)
[2019-04-07] MEDS: INSULIN LISPRO 100 UNIT/ML 3 ML VIAL SUBCUT SCH ×4 (01:00→21:22)
[2019-04-07] MEDS: DILTIAZEM HCL 30 MG TABLET NG SCH ×3 (01:00→21:21)
[2019-04-07] MEDS: IPRATROPIUM BROMIDE 0.02% NEB 0.5 MG/2.5 ML AMPUL NEB SCH ×4 (02:16→20:07)
[2019-04-07] MEDS: LEVALBUTEROL HCL NEB 1.25 MG/3 ML AMPUL NEB SCH ×4 (02:16→20:07)
[2019-04-07 05:33] LABS: ANION GAP 7 (5-19); BLOOD UREA NITROGEN 22 mg/dL (7-20); CALCIUM 8.2 mg/dL (8.4-10.2); CARBON DIOXIDE 21 mmol/L (22-30); CHLORIDE 105 mmol/L (98-107); GLUCOSE 91 mg/dL (75-110); POTASSIUM 3.4 mmol/L (3.6-5.0); SODIUM 132.8 mmol/L (137-145)
[2019-04-07] MEDS: HEPARIN SOD (PORCINE) 5,000 UNIT/ML 1 ML SYRINGE SUBCUT SCH ×3 (05:56→21:24)
[2019-04-07] MEDS: HYDRALAZINE HCL 25 MG TABLET NG SCH ×3 (05:56→21:25)
[2019-04-07] MEDS: BUDESONIDE NEB 0.5 MG/2 ML AMPUL NEB SCH ×2 (08:45→20:07)
[2019-04-07] MEDS ORDERED: SCOPOLAMINE HYDROBROMIDE 1.5 MG PATCH.TD72 TD ONE (15:00)
--- NOTE | 2019-04-07 15:04 | PDOC PROGRESS REPORT ---
Subjective Progress Note for:: 04/07/19 Subjective:: This is a 63 yr old male who was admitted for acute encpehalopathy. He was found to have severe hyponatremia and was started on hypertonic saline. He went into acute respiratory failure deeemd to be from likely aspiration pneumonia and DTs and was intubated on 03/17. He was extubated on 03/20. 03/22: Patient was downgraded from ICU last night. This morning around 6 AM, patient went into AFib with RVR. Apparently, he was given 2 doses of IV Lopressor but he had persistent AFib in the 140s. Upon initial encounter, patient is still in AFib. He is slightly tachpyneic and has significant rales bilaterally with decreased breath sounds on the bases. He will be started on Cardizem drip and will be upgraded to IMCU. Chest x-ray yesterday appears to show worsening airspace disease and pleural effusions. Will pursue a chest CT. 2 PM: Patient reassessed. He is now in normal sinus rhythm on minimal Cardizem infusion (2.5). He appears to be breathing better and is saturating well on 4 lpm via NC. Chest CT shows significant pleural effusions bilaterally. He has been on Rocephin. Switch to Zosyn. Possible acute congestive heart failure. Start IV Lasix. Replace Potassium as needed. Will consult radiology if there is no improvement in pleural effusions with diuresis. Speech therapist has recommended keeping patient NPO over the next few days. 03/23: He remains on NSR on cardizem drip. He appears more conversant today and says he wants water but is not well oriented. Weaned off BIPAP and he is now saturating well on nasal cannula. He has diuresed well overnight. Will repeat CXR today to reassess effusions. Able to contact patient's son, Rohith who was updated about patient's status and plan of care. Discussed anticoagulation and he says he would have to discuss this further with his sister/DPMIHAI who is unreachable at the moment. 03/24: Currently on sinus rhythm on cardizem drip. He remains NPO until reassessment by speech tomorrow. He had significant improvement with aggressive diuresis. Repeat chest x-ray shows significant improvement of airspace disease with IV Lasix in 24 hrs. 03/25: No acute event overnight. He continues to improve significantly. He is more awake and alert today but appears deconditioned. He is comfortable and is saturating well on nasal cannula. Repeat CXR shows near complete resolution of bilateral airspace disease and bilateral effusions. Apparently we don't have speech therapy services today and he will be re-evaluated by speech tomorrow. Until then, he will remain NPO and will continue IV medications. He is currently in sinus rhythm on minimal dose of cardizem infusion. Lasix has been decreased to 40 mg daily. May be decreased further or discontinued in the next 24-28 hrs. 04/02: Reassumed care today. Patient apparently went into acute respiratory failure on 03/27. He was noted to be tachypneic and became unresponsive hence was reintubated. Repeat chest x-ray then showed basilar opacities. There was a question if patient might have aspirated. He is currently sedated and is saturating well on minimal vent settings at 21% FiO2. 04/03: He continues to saturate well on minimal vent settings. Repeat chest CT shows improved aeration of previously seen bilateral areas of consolidation and groundglass attenuation. There is also significant improvement of small bilateral pleural effusions. Minimal secretions from ET tube. We will continue with weaning trials. He has loose stools. 04/04: Per RN, when sedation is weaned down, patient is not following commands. Switched Diprivan to Precedex. Patient is a little more responsive on assessment. He has very minimal regard at this time. He did inconsistently squeezed this examiner's fingers on command but did not wiggle toes or move feet when prompted to. He continues to have loose stools. 04/05: Currently off sedation. He saturating well on minimal vent settings. He continues to inconsistently move fingers on prompting. He is currently doing well on SBT's. Discussed with ANGELICA Smith over the phone in length. Discussed plan to possibly extubate tomorrow. Today she expressed she is inclined not to have patient reintubated if the need arises again and will be switched to DNR/DNI status after extubation. 04/06: He is off sedation and is saturating well on minimal vent settings. Placed patient on weaning trial today but he subsequently developed transient apneic episodes on CPAP mode. He is a little more responsive today. He is able to consistently squeeze this examiner's fingers is and able to weakly wiggle his toes and raise his eyebrows on command. 04/07: No acute event overnight. Patient saturating well on minimal vent set tings. He is able to follow commands now more consistently. He did well on SBT. Discussed in length with ANGELICA/Sarah (in [place]-over phone) and family about plan to extubate. Explained in length that patient continues to have a very high risk of aspiration given that he likely aspirated prior to his second reintubation swallow trials before. Sarah did express again that he does not want him to be reintubated and wants to switch him to DNR/DNI after extubation. She sayMrJoanna Foster would not want to be in a long-term ventilation or pursue tracheostomy. Family including son, Nura, ex- and brother bedside. They expressed that they do not want him reintubated. However, Nura (ANGELICA's brother) initially expressed he is against this and says he would want him reintubated and that he does not agree with Sarah/ANGELICA. Discussed in length about long- term goals of care. Nura did call Sarah and after phone conversation, he expressed he agrees with proceeding with extubation and no reintubation and switching to code status to DNR/DNI. Discussed in length that we would definitely continue to treat patient and possibly work on placing him to rehab or SNF if he continues to do better. Sarah/ANGELICA was placed on speaker phone and family discussion was done in length about plan of care. Discussed that if patient does deteriorate or develop respiratory failure again, we will not reintubate him and will transition him to comfort measures. Sarah and family at bedside including Nura is amenable to this. Will proceed with extubation to BIPAP. Reason For Visit: SEVERE HYPONATREMIA Physical Exam Vital Signs: Temp Pulse Resp BP Pulse Ox 98.1 F 62 16 127/60 H 100 04/07/19 10:00 04/07/19 08:46 04/07/19 10:00 04/07/19 09:53 04/07/19 11:51 Intake & Output 04/06/19 04/07/19 04/08/19 06:59 06:59 06:59 Intake Total 300 Output Total 2014 1370 185 Balance -2595 -1370 -185 Weight 122 lb 5.705 oz 121 lb 4.068 oz General appearance: PRESENT: no acute distress, other - Intubated Eye exam: PRESENT: conjunctiva pink, EOMI, PERRLA. ABSENT: scleral icterus Ear exam: PRESENT: normal external ear exam Neck exam: ABSENT: carotid bruit, JVD, lymphadenopathy, thyromegaly Respiratory exam: PRESENT: clear to auscultation pierre. ABSENT: rales, rhonchi, wheezes Cardiovascular exam: PRESENT: RRR. ABSENT: diastolic murmur, rubs, systolic murmur Pulses: PRESENT: normal dorsalis pedis pul GI/Abdominal exam: PRESENT: normal bowel sounds, soft. ABSENT: distended, guarding, mass, organolmegaly, rebound, tenderness Rectal exam: PRESENT: deferred - [id number] Neurological exam: PRESENT: alert, awake, other - Follows commands Results Laboratory Results: 04/06/19 05:03 04/07/19 05:00 04/06/19 04/07/19 18:15 05:00 Sodium 132.8 L Potassium 3.4 L Chloride 105 Carbon Dioxide 21 L Anion Gap 7 BUN 22 H Creatinine 0.53 Est GFR ( Amer) > 60 Est GFR (Non-Af Amer) > 60 Glucose 91 Calcium 8.2 L Stool for White Cells NO WBCs SEEN 04/04/19 11:57 Sputum Gram Stain - Final 04/04/19 11:57 Sputum Sputum Culture - Final Mrsa (Meth Resis Staph Aureus) C.albicans/C.dubliniensis Normal Erica Absent 03/15/19 03/15/19 03/21/19 13:23 13:23 03:25 Creatine Kinase 62 CK-MB (CK-2) 2.61 Troponin I 0.014 NT-Pro-B Natriuret Pep 47456 H 04/01/19 04:05 Creatine Kinase CK-MB (CK-2) Troponin I NT-Pro-B Natriuret Pep 5650 H Impressions: Head CTA 03/26/19 00:00 IMPRESSION: 1. No acute intracranial pathology. No noncontrast CT evidence of acute stroke or hemorrhage. Small vessel white matter disease. 2. No evidence of intracranial occlusion, stenosis, or aneurysm. 3. There is calcific atherosclerosis of the bilateral internal carotid artery origins with approximately 50% stenosis at the origin of the right internal carotid artery and greater than 70% stenosis of the origin of the left internal carotid artery. EVIDENCE OF ACUTE STROKE: NO. Neck CTA 03/26/19 09:21 IMPRESSION: 1. No acute intracranial pathology. No noncontrast CT evidence of acute stroke or hemorrhage. Small vessel white matter disease. 2. No evidence of intracranial occlusion, stenosis, or aneurysm. 3. There is calcific atherosclerosis of the bilateral internal carotid artery origins with approximately 50% stenosis at the origin of the right internal carotid artery and greater than 70% stenosis of the origin of the left internal carotid artery. EVIDENCE OF ACUTE STROKE: NO. KUB X-Ray 03/27/19 13:11 IMPRESSION: Nasogastric tube tip and side port in the stomach. Dilated small bowel loops in the left upper quadrant worrisome for small bowel obstruction versus ileus. Chest CT 04/03/19 07:00 IMPRESSION: 1. Improved aeration of previously seen bilateral areas of consolidation and ground-glass attenuation. Small bilateral pleural effusions, improved from prior. No new airspace disease. No pneumothorax. 2. Stable bilateral subacute anterior rib fractures. Head CT 04/03/19 08:55 IMPRESSION: 1. Stable chronic changes without evidence of new intracranial process. 2. Worsening opacification of the right maxillary sinus, likely secondary to intubation. 3. Evidence of prior mastoidectomy with unchanged debris in the right mastoid cavity, possibly mycetoma. EVIDENCE OF ACUTE STROKE: NO. Chest X-Ray 04/06/19 06:00 IMPRESSION: No significant change. Assessment and Plan - Diagnosis (1) Acute hypoxemic respiratory failure Is this a current diagnosis for this admission?: Yes Plan: Patient went into acute respiratory failure on 03/27 and was reintubated. He was noted to be tachypneic and became unresponsive hence was reintubated. Repeat chest x-ray then showed basilar opacities. There is a question if patient might have aspirated. He is currently sedated and is saturating well on minimal vent settings at 21% FiO2. 04/03: He continues to saturate well on minimal vent settings. Repeat chest CT shows improved aeration of previously seen bilateral areas of consolidation and groundglass attenuation. There is also significant improvement of small bilateral pleural effusions. Minimal secretions from ET tube. 04/04: He is doing well on minimal vent settings. Switched Diprivan to Precedex. Patient is a little more responsive on assessment. He has very minimal regard at this time. He did inconsistently squeezed this examiner's fingers on command but did not wiggle toes or move feet when prompted to. Will do SBT today. 04/05: Currently off sedation. He saturating well on minimal vent settings. He continues to inconsistently move fingers on prompting. He is currently doing well on SBT's. Discussed with ANGELICA Smith over the phone in length. Discussed plan to possibly extubate tomorrow. Today she expressed she is inclined not to have patient reintubated if the need arises again and will be switched to DNR/DNI status after extubation. 04/06: He is off sedation and is saturating well on minimal vent settings. Placed patient on weaning trial today but he subsequently developed transient apneic episodes on CPAP mode. He is a little more responsive today. He is able to consistently squeeze this examiner's fingers is and able to weakly wiggle his toes and raise his eyebrows on command. 04/07: See detailed discussion above. We will proceed with extubation to BiPAP. (2) Pleural effusion Is this a current diagnosis for this admission?: Yes Plan: Improved. Continue Lasix. 04/05: Almost resolved on repeat chest x-ray. Hold off on Lasix as he now appears clinically on the dry side. (3) Metabolic acidosis Is this a current diagnosis for this admission?: Yes Plan: ABG shows respiratory alkalosis with metabolic acidosis. Suspect metabolic acidosis is from bicarb loss from diarrhea. Suspecting Zyvox associated diarrhea. C. difficile negative. Zyvox discontinued. We will give patient some oral bicarb. 04/05: Improved with oral bicarb. (4) Aspiration pneumonia Is this a current diagnosis for this admission?: Yes Plan: Resolved. Previously on vancomycin and cefepime. Sputum cultures grew MRSA and he was switched to linezolid per ID recommendation. Appreciate ID recommendations. Repeat chest CT does show improvement of bilateral airspace disease and effusion. Discontinued Zyvox. (5) New onset atrial fibrillation Is this a current diagnosis for this admission?: Yes Plan: Rate controlled. Continue aspirin and oral Cardizem. (6) Fluid overload Is this a current diagnosis for this admission?: Yes Plan: Resolved. Discontinue [id number] (7) COPD (chronic obstructive pulmonary disease) Qualifiers: Emphysema type: unspecified Is this a current diagnosis for this admission?: Yes Plan: Exacerbation resolved. DCed solumedrol as steroids are likely contributing to his myopathy. (8) Hypokalemia Is this a current diagnosis for this admission?: Yes Plan: Resolved. (9) Hyponatremia Is this a current diagnosis for this admission?: Yes Plan: Initially received hypertonic saline on admission. - Time Time Spent with patient: 25-34 minutes
[2019-04-07] MEDS ORDERED: NORMAL SALINE 1000 ML 1,000 ML IV PRN (19:20)
[2019-04-07] MEDS: LISINOPRIL 5 MG TABLET NG SCH (21:19)
[2019-04-07] MEDS: NYSTATIN 500000 UNIT/5 ML UDCUP PO SCH ×2 (21:19→21:25)
[2019-04-07] MEDS: ASPIRIN 81 MG TABLET, CHEWABLE NG SCH (21:19)
[2019-04-07] MEDS: FOLIC ACID 1 MG TABLET NG SCH (21:19)
[2019-04-07] MEDS: AMINO AC/PROTEIN HYDR/WHEY PRO 11 GM/45 ML PKT NG SCH (21:20)
[2019-04-07] MEDS: PANTOPRAZOLE SODIUM 40 MG VIAL IV SCH (21:20)
[2019-04-07] MEDS: THIAMINE HCL 100 MG TABLET NG SCH (21:20)
[2019-04-07] MEDS: SODIUM BICARBONATE 650 MG TABLET NG SCH ×2 (21:20→21:25)
[2019-04-07 22:03] LABS: ARTERIAL BLOOD BASE EXCESS -2.9 mmol/L; ARTERIAL BLOOD H2CO3 0.67 mmol/L (1.05-1.35); ARTERIAL BLOOD HCO3 18.3 mmol/L (20-24); ARTERIAL BLOOD O2 SATURATION 97.9 % (94-98); ARTERIAL BLOOD PCO2 22.4 mmHg (35-45); ARTERIAL BLOOD PH 7.53 (7.35-7.45); ARTERIAL BLOOD PO2 92.9 mmHg (80-100); ARTERIAL BLOOD TOTAL CO2 18.9 mmol/L (23-27)
[2019-04-07 22:05] LABS: ARTERIAL BLOOD FIO2 30
[2019-04-08] MEDS: INSULIN LISPRO 100 UNIT/ML 3 ML VIAL SUBCUT SCH ×4 (00:37→18:32)
[2019-04-08] MEDS: POTASSIUM CHLORIDE 20 MEQ PACKET NG SCH ×4 (00:37→18:37)
[2019-04-08] MEDS: DILTIAZEM HCL 30 MG TABLET NG SCH ×4 (00:37→18:37)
[2019-04-08] MEDS: IPRATROPIUM BROMIDE 0.02% NEB 0.5 MG/2.5 ML AMPUL NEB SCH ×3 (02:16→13:51)
[2019-04-08] MEDS: LEVALBUTEROL HCL NEB 1.25 MG/3 ML AMPUL NEB SCH ×3 (02:16→13:51)
[2019-04-08] MEDS: HEPARIN SOD (PORCINE) 5,000 UNIT/ML 1 ML SYRINGE SUBCUT SCH ×2 (05:39→14:36)
[2019-04-08] MEDS: HYDRALAZINE HCL 25 MG TABLET NG SCH ×2 (05:40→14:34)
[2019-04-08 06:16] LABS: ANION GAP 8 (5-19); BLOOD UREA NITROGEN 16 mg/dL (7-20); CALCIUM 8.4 mg/dL (8.4-10.2); CARBON DIOXIDE 21 mmol/L (22-30); CHLORIDE 105 mmol/L (98-107); GLUCOSE 93 mg/dL (75-110); POTASSIUM 3.3 mmol/L (3.6-5.0)
--- NOTE | 2019-04-08 09:05 | RADIOLOGY REPORT (SQ) ---
EXAM DESCRIPTION: CHEST SINGLE VIEW COMPLETED DATE/TIME: 04/08/2019 8:45 am REASON FOR STUDY: s/p extubation,reassess for inf/congestion COMPARISON: 04/06/2019 EXAM PARAMETERS: NUMBER OF VIEWS: One view. TECHNIQUE: Single frontal radiographic view of the chest acquired. RADIATION DOSE: NA LIMITATIONS: None. FINDINGS: LUNGS AND PLEURA: Interval development of patchy airspace disease in the right lower lung , may be on the basis of infiltrate/atelectasis. No evidence of pneumothorax. MEDIASTINUM AND HILAR STRUCTURES: No masses. Contour normal. HEART AND VASCULAR STRUCTURES: Heart normal in size. Normal vasculature. BONES: No acute findings. HARDWARE: Interval removal of endotracheal tube. Nasogastric tube and right central venous line rem ain. OTHER: No other significant finding. IMPRESSION: 1. Status post extubation since the prior study dated 04/06/2019. No evidence of pneumot horax. 2. New development of patchy airspace disease in the right lower lung, may represent infiltrate/atel ectasis. TECHNICAL DOCUMENTATION: JOB ID: [id number] [employer]- All Rights Reserved Reading location - IP/workstation name: [email or web address]
[2019-04-08] MEDS: NYSTATIN 500000 UNIT/5 ML UDCUP PO SCH ×3 (10:40→18:37)
[2019-04-08] MEDS: AMINO AC/PROTEIN HYDR/WHEY PRO 11 GM/45 ML PKT NG SCH ×2 (10:40→18:38)
[2019-04-08] MEDS: LISINOPRIL 5 MG TABLET NG SCH (10:41)
[2019-04-08] MEDS: SODIUM BICARBONATE 650 MG TABLET NG SCH (10:41)
[2019-04-08] MEDS: ASPIRIN 81 MG TABLET, CHEWABLE NG SCH (10:41)
[2019-04-08] MEDS: THIAMINE HCL 100 MG TABLET NG SCH (10:41)
[2019-04-08] MEDS: FOLIC ACID 1 MG TABLET NG SCH (10:41)
[2019-04-08] MEDS ORDERED: POTASSIUM CHLORIDE 20 MEQ PACKET PO ONE (11:00)
[2019-04-08] MEDS: ACETAMINOPHEN 650 MG SUPP.RECT PR PRN (12:36)
--- NOTE | 2019-04-08 16:37 | PDOC PROGRESS REPORT ---
Subjective Progress Note for:: 04/08/19 Subjective:: This is a 63 yr old male who was admitted for acute encpehalopathy. He was found to have severe hyponatremia and was started on hypertonic saline. He went into acute respiratory failure deeemd to be from likely aspiration pneumonia and DTs and was intubated on 03/17. He was extubated on 03/20. 03/22: Patient was downgraded from ICU last night. This morning around 6 AM, patient went into AFib with RVR. Apparently, he was given 2 doses of IV Lopressor but he had persistent AFib in the 140s. Upon initial encounter, patient is still in AFib. He is slightly tachpyneic and has significant rales bilaterally with decreased breath sounds on the bases. He will be started on Cardizem drip and will be upgraded to IMCU. Chest x-ray yesterday appears to show worsening airspace disease and pleural effusions. Will pursue a chest CT. 2 PM: Patient reassessed. He is now in normal sinus rhythm on minimal Cardizem infusion (2.5). He appears to be breathing better and is saturating well on 4 lpm via NC. Chest CT shows significant pleural effusions bilaterally. He has been on Rocephin. Switch to Zosyn. Possible acute congestive heart failure. Start IV Lasix. Replace Potassium as needed. Will consult radiology if there is no improvement in pleural effusions with diuresis. Speech therapist has recommended keeping patient NPO over the next few days. 03/23: He remains on NSR on cardizem drip. He appears more conversant today and says he wants water but is not well oriented. Weaned off BIPAP and he is now saturating well on nasal cannula. He has diuresed well overnight. Will repeat CXR today to reassess effusions. Able to contact patient's son, Rohith who was updated about patient's status and plan of care. Discussed anticoagulation and he says he would have to discuss this further with his sister/DPMIHAI who is unreachable at the moment. 03/24: Currently on sinus rhythm on cardizem drip. He remains NPO until reassessment by speech tomorrow. He had significant improvement with aggressive diuresis. Repeat chest x-ray shows significant improvement of airspace disease with IV Lasix in 24 hrs. 03/25: No acute event overnight. He continues to improve significantly. He is more awake and alert today but appears deconditioned. He is comfortable and is saturating well on nasal cannula. Repeat CXR shows near complete resolution of bilateral airspace disease and bilateral effusions. Apparently we don't have speech therapy services today and he will be re-evaluated by speech tomorrow. Until then, he will remain NPO and will continue IV medications. He is currently in sinus rhythm on minimal dose of cardizem infusion. Lasix has been decreased to 40 mg daily. May be decreased further or discontinued in the next 24-28 hrs. 04/02: Reassumed care today. Patient apparently went into acute respiratory failure on 03/27. He was noted to be tachypneic and became unresponsive hence was reintubated. Repeat chest x-ray then showed basilar opacities. There was a question if patient might have aspirated. He is currently sedated and is saturating well on minimal vent settings at 21% FiO2. 04/03: He continues to saturate well on minimal vent settings. Repeat chest CT shows improved aeration of previously seen bilateral areas of consolidation and groundglass attenuation. There is also significant improvement of small bilateral pleural effusions. Minimal secretions from ET tube. We will continue with weaning trials. He has loose stools. 04/04: Per RN, when sedation is weaned down, patient is not following commands. Switched Diprivan to Precedex. Patient is a little more responsive on assessment. He has very minimal regard at this time. He did inconsistently squeezed this examiner's fingers on command but did not wiggle toes or move feet when prompted to. He continues to have loose stools. 04/05: Currently off sedation. He saturating well on minimal vent settings. He continues to inconsistently move fingers on prompting. He is currently doing well on SBT's. Discussed with ANGELICA Smith over the phone in length. Discussed plan to possibly extubate tomorrow. Today she expressed she is inclined not to have patient reintubated if the need arises again and will be switched to DNR/DNI status after extubation. 04/06: He is off sedation and is saturating well on minimal vent settings. Placed patient on weaning trial today but he subsequently developed transient apneic episodes on CPAP mode. He is a little more responsive today. He is able to consistently squeeze this examiner's fingers is and able to weakly wiggle his toes and raise his eyebrows on command. 04/07: Patient saturating well on minimal vent settings. He is able to follow commands now more consistently. He did well on SBT. Discussed in length with ANGELICA/Sarah (in [place]-over phone) and family about plan to extubate. Explained in length that patient continues to have a very high risk of aspiration given that he likely aspirated prior to his second reintubation swallow trials before. Sarah did express again that he does not want him to be reintubated and wants to switch him to DNR/DNI after extubation. She sayMrJoanna Foster would not want to be in a long-term ventilation or pursue tracheostomy. Family including son, Nura, ex- and brother bedside. They expressed that they do not want him reintubated. However, Nura (DPMIHAI's brother) initially expressed he is against this and says he would want him reintubated and that he does not agree with Sarah/ANGELICA. Discussed in length about long-term goals of care. Nura did call Sarah and after phone conversation, he expressed he agrees with proceeding with extubation and no reintubation and switching to code status to DNR/DNI. Discussed in length that we would definitely continue to treat patient and possibly work on placing him to rehab or SNF if he continues to do better. Sarah/ANGELICA was placed on speaker phone and family discussion was done in length about plan of care. Discussed that if patient does deteriorate or develop respiratory failure again, we will not reintubate him and will transition him to comfort measures. Sarah and family at bedside including Nura is amenable to this. Will proceed with extubation to BIPAP. 04/08: No acute event overnight. Patient is saturating well on BiPAP. He appears comfortable he is readily arousable. He is noticeably not protecting h is airway and is not able to clear oral secretions. On auscultation, rhonchi is audible particularly in the right lung field. Discuss with ANGELICA/Sarah again and she especially wants to proceed with hospice and comfort measures. Also discussed with patient's sister, Jayleen who is agreeable with transition and plan of care. Discussed case with Dr. Mcarthur and plan to transition patient to hospice and comfort measures. He agrees with plan. Reason For Visit: SEVERE HYPONATREMIA Physical Exam Vital Signs: Temp Pulse Resp BP Pulse Ox 101.3 F H 83 26 H 114/68 96 04/08/19 12:00 04/08/19 13:53 04/08/19 13:53 04/08/19 12:00 04/08/19 13:53 Intake & Output 04/07/19 04/08/19 04/09/19 06:59 06:59 06:59 Output Total 1370 1370 240 Balance -1370 -1370 -240 Weight 121 lb 4.068 oz 119 lb 7.849 oz General appearance: PRESENT: no acute distress Head exam: PRESENT: atraumatic, normocephalic Eye exam: PRESENT: conjunctiva pink, EOMI, PERRLA. ABSENT: scleral icterus Ear exam: PRESENT: normal external ear exam Mouth exam: PRESENT: moist, tongue midline Neck exam: ABSENT: carotid bruit, JVD, lymphadenopathy, thyromegaly Respiratory exam: PRESENT: rhonchi. ABSENT: rales, wheezes Cardiovascular exam: PRESENT: RRR. ABSENT: diastolic murmur, rubs, systolic murmur Pulses: PRESENT: normal dorsalis pedis pul GI/Abdominal exam: PRESENT: normal bowel sounds, soft. ABSENT: distended, guarding, mass, organolmegaly, rebound, tenderness Rectal exam: PRESENT: deferred Neurological exam: PRESENT: CN II-XII grossly intact, other - Arousable, nonconversant. ABSENT: motor sensory deficit Results Laboratory Results: 04/06/19 05:03 04/08/19 05:40 04/07/19 04/08/19 21:45 05:40 Carbonic Acid 0.67 L HCO3/H2CO3 Ratio 27:1 ABG pH 7.53 H ABG pCO2 22.4 L ABG pO2 92.9 ABG HCO3 18.3 L ABG O2 Saturation 97.9 ABG Base Excess -2.9 FiO2 30 Sodium 134.0 L Potassium 3.3 L Chloride 105 Carbon Dioxide 21 L Anion Gap 8 BUN 16 Creatinine 0.51 L Est GFR ( Amer) > 60 Est GFR (Non-Af Amer) > 60 Glucose 93 Calcium 8.4 04/06/19 18:15 Stool - Stool - Final 05/03/15/19 03/21/19 13:23 13:23 03:25 Creatine Kinase 62 CK-MB (CK-2) 2.61 Troponin I 0.014 NT-Pro-B Natriuret Pep [id number] H 04/01/19 04:05 Creatine Kinase CK-MB (CK-2) Troponin I NT-Pro-B Natriuret Pep 5650 H Impressions: Head CTA 03/26/19 00:00 IMPRESSION: 1. No acute intracranial pathology. No noncontrast CT evidence of acute stroke or hemorrhage. Small vessel white matter disease. 2. No evidence of intracranial occlusion, stenosis, or aneurysm. 3. There is calcific atherosclerosis of the bilateral internal carotid artery origins with approximately 50% stenosis at the origin of the right internal carotid artery and greater than 70% stenosis of the origin of the left internal carotid artery. EVIDENCE OF ACUTE STROKE: NO. Neck CTA 03/26/19 09:21 IMPRESSION: 1. No acute intracranial pathology. No noncontrast CT evidence of acute stroke or hemorrhage. Small vessel white matter disease. 2. No evidence of intracranial occlusion, stenosis, or aneurysm. 3. There is calcific atherosclerosis of the bilateral internal carotid artery origins with approximately 50% stenosis at the origin of the right internal carotid artery and greater than 70% stenosis of the origin of the left internal carotid artery. EVIDENCE OF ACUTE STROKE: NO. KUB X-Ray 03/27/19 13:11 IMPRESSION: Nasogastric tube tip and side port in the stomach. Dilated small bowel loops in the left upper quadrant worrisome for small bowel obstruction versus ileus. Chest CT 04/03/19 07:00 IMPRESSION: 1. Improved aeration of previously seen bilateral areas of consolidation and ground-glass attenuation. Small bilateral pleural effusions, improved from prior. No new airspace disease. No pneumothorax. 2. Stable bilateral subacute anterior rib fractures. Head CT 04/03/19 08:55 IMPRESSION: 1. Stable chronic changes without evidence of new intracranial process. 2. Worsening opacification of the right maxillary sinus, likely secondary to intubation. 3. Evidence of prior mastoidectomy with unchanged debris in the right mastoid cavity, possibly mycetoma. EVIDENCE OF ACUTE STROKE: NO. Chest X-Ray 04/08/19 00:00 IMPRESSION: 1. Status post extubation since the prior study dated 04/06/2019. No evidence of pneumothorax. 2. New development of patchy airspace disease in the right lower lung, may represent infiltrate/atelectasis. Assessment and Plan - Diagnosis (1) Acute hypoxemic respiratory failure Is this a current diagnosis for this admission?: Yes Plan: Patient went into acute respiratory failure on 03/27 and was reintubated. He was noted to be tachypneic and became unresponsive hence was reintubated. Repeat chest x-ray then showed basilar opacities. There is a question if patient might have aspirated. He is currently sedated and is saturating well on minimal vent settings at 21% FiO2. 04/03: He continues to saturate well on minimal vent settings. Repeat chest CT shows improved aeration of previously seen bilateral areas of consolidation and groundglass attenuation. There is also significant improvement of small bilateral pleural effusions. Minimal secretions from ET tube. 04/04: He is doing well on minimal vent settings. Switched Diprivan to Precedex. Patient is a little more responsive on assessment. He has very minimal regard at this time. He did inconsistently squeezed this examiner's fingers on command but did not wiggle toes or move feet when prompted to. Will do SBT today. 04/05: Currently off sedation. He saturating well on minimal vent settings. He continues to inconsistently move fingers on prompting. He is currently doing well on SBT's. Discussed with ANGELICA Smith over the phone in length. Discussed plan to possibly extubate tomorrow. Today she expressed she is incl ined not to have patient reintubated if the need arises again and will be switched to DNR/DNI status after extubation. 04/06: He is off sedation and is saturating well on minimal vent settings. Placed patient on weaning trial today but he subsequently developed transient apneic episodes on CPAP mode. He is a little more responsive today. He is able to consistently squeeze this examiner's fingers is and able to weakly wiggle his toes and raise his eyebrows on command. 04/07: See detailed discussion above. We will proceed with extubation to BiPAP. 04/08: Patient is saturating well on BiPAP. He appears comfortable he is readily arousable. He is noticeably not protecting his airway and is not able to clear oral secretions. On auscultation, rhonchi is audible particularly in the right lung field. Discuss with ANGELICA/Sarah again and she especially wants to proceed with hospice and comfort measures. Also discussed with patient's sister, Jayleen who is agreeable with transition and plan of care. Discussed case with Dr. Mcarthur and plan to transition patient to hospice and comfort measures. He agrees with plan. (2) Pleural effusion Is this a current diagnosis for this admission?: Yes Plan: Improved. Continue Lasix. 04/05: Almost resolved on repeat chest x-ray. Hold off on Lasix as he now appears clinically on the dry side. (3) Metabolic acidosis Is this a current diagnosis for this admission?: Yes Plan: ABG shows respiratory alkalosis with metabolic acidosis. Suspect metabolic acidosis is from bicarb loss from diarrhea. Suspecting Zyvox associated diarrhea. C. difficile negative. Zyvox discontinued. We will give patient some oral bicarb. 04/05: Improved with oral bicarb. (4) Aspiration pneumonia Is this a current diagnosis for this admission?: Yes Plan: Resolved. Previously on vancomycin and cefepime. Sputum cultures grew MRSA and he was switched to linezolid per ID recommendation. Appreciate ID recommendations. Repeat chest CT does show improvement of bilateral airspace disease and effusion. Discontinued Zyvox. (5) New onset atrial fibrillation Is this a current diagnosis for this admission?: Yes Plan: Rate controlled. Continue aspirin and oral Cardizem. (6) Fluid overload Is this a current diagnosis for this admission?: Yes Plan: Resolved. Discontinued Lasix. (7) COPD (chronic obstructive pulmonary disease) Qualifiers: Emphysema type: unspecified Is this a current diagnosis for this admission?: Yes Plan: Exacerbation resolved. DCed solumedrol as steroids are likely contributing to his myopathy. (8) Hypokalemia Is this a current diagnosis for this admission?: Yes Plan: Resolved. (9) Hyponatremia Is this a current diagnosis for this admission?: Yes Plan: Initially received hypertonic saline on admission. - Time Time Spent with patient: 25-34 minutes
[2019-04-08] MEDS ORDERED: MORPHINE SULFATE 10 MG/ML INJ IV PRN (19:27)
[2019-04-08] MEDS: LORAZEPAM INJ 2 MG/1 ML VIAL IV PRN (21:52)
[2019-04-09] MEDS: LORAZEPAM INJ 2 MG/1 ML VIAL IV PRN ×3 (01:44→06:39)
[2019-04-09] MEDS ORDERED: MORPHINE SULFATE 10 MG/ML INJ IV PRN (20:26)
--- NOTE | 2019-04-09 20:38 | PDOC PROGRESS REPORT ---
Subjective Progress Note for:: 04/09/19 Subjective:: The patient is now comfort care only. He is currently on BiPAP with an NG tube in place. Reason For Visit: SEVERE HYPONATREMIA Physical Exam Vital Signs: Temp Pulse Resp BP Pulse Ox 99.0 F 98 21 H 122/69 100 04/09/19 07:38 04/09/19 07:38 04/09/19 16:53 04/09/19 07:38 04/09/19 07:38 Intake & Output 04/08/19 04/09/19 04/10/19 06:59 06:59 06:59 Intake Total 0 0 Output Total 1370 665 40 Balance -1370 -665 -40 Weight 54.4 kg 53.8 kg General appearance: PRESENT: no acute distress, other - Currently on BiPAP Head exam: PRESENT: atraumatic, normocephalic, other - Facial flushing Ear exam: PRESENT: normal external ear exam Mouth exam: PRESENT: other - BiPAP mask in place Respiratory exam: PRESENT: decreased breath sounds, symmetrical, tachypnea. ABSENT: rales, rhonchi, wheezes Cardiovascular exam: PRESENT: irregular rhythm GI/Abdominal exam: PRESENT: hypoactive bowel sounds, soft. ABSENT: tenderness Rectal exam: PRESENT: deferred Gentrourinary exam: PRESENT: indwelling catheter Extremities exam: ABSENT: joint swelling, pedal edema Neurological exam: ABSENT: alert, awake Psychiatric exam: ABSENT: agitated Focused psych exam: ABSENT: restlessness Results Laboratory Results: 04/06/19 05:03 04/08/19 18:30 04/06/19 18:15 Stool - Stool - Final 03/15/19 03/15/19 03/21/19 13:23 13:23 03:25 Creatine Kinase 62 CK-MB (CK-2) 2.61 Troponin I 0.014 NT-Pro-B Natriuret Pep [id number] H 04/01/19 04:05 Creatine Kinase CK-MB (CK-2) Troponin I NT-Pro-B Natriuret Pep 5650 H Impressions: Head CTA 03/26/19 00:00 IMPRESSION: 1. No acute intracranial pathology. No noncontrast CT evidence of acute stroke or hemorrhage. Small vessel white matter disease. 2. No evidence of intracranial occlusion, stenosis, or aneurysm. 3. There is calcific atherosclerosis of the bilateral internal carotid artery origins with approximately 50% stenosis at the origin of the right internal carotid artery and greater than 70% stenosis of the origin of the left internal carotid artery. EVIDENCE OF ACUTE STROKE: NO. Neck CTA 03/26/19 09:21 IMPRESSION: 1. No acute intracranial pathology. No noncontrast CT evidence of acute stroke or hemorrhage. Small vessel white matter disease. 2. No evidence of intracranial occlusion, stenosis, or aneurysm. 3. There is calcific atherosclerosis of the bilateral internal carotid artery origins with approximately 50% stenosis at the origin of the right internal carotid artery and greater than 70% stenosis of the origin of the left internal carotid artery. EVIDENCE OF ACUTE STROKE: NO. KUB X-Ray 03/27/19 13:11 IMPRESSION: Nasogastric tube tip and side port in the stomach. Dilated small bowel loops in the left upper quadrant worrisome for small bowel obstruction versus ileus. Chest CT 04/03/19 07:00 IMPRESSION: 1. Improved aeration of previously seen bilateral areas of consolidation and ground-glass attenuation. Small bilateral pleural effusions, improved from prior. No new airspace disease. No pneumothorax. 2. Stable bilateral subacute anterior rib fractures. Head CT 04/03/19 08:55 IMPRESSION: 1. Stable chronic changes without evidence of new intracranial process. 2. Worsening opacification of the right maxillary sinus, likely secondary to intubation. 3. Evidence of prior mastoidectomy with unchanged debris in the right mastoid cavity, possibly mycetoma. EVIDENCE OF ACUTE STROKE: NO. Chest X-Ray 04/08/19 00:00 IMPRESSION: 1. Status post extubation since the prior study dated 04/06/2019. No evidence of pneumothorax. 2. New development of patchy airspace disease in the right lower lung, may represent infiltrate/atelectasis. Assessment and Plan - Diagnosis (1) Encephalopathy Is this a current diagnosis for this admission?: Yes Plan: 04/09/2019-this is most likely a metabolic encephalopathy. Potential etiologies include his severe infections. There is also a supposed did history of alcohol. The patient is comfort measures only. He was unable to participate in the exam. Unable to truly determine if the encephalopathy is cleared. (2) Acute hypoxemic respiratory failure Is this a current diagnosis for this admission?: Yes Plan: The patient had methicillin-resistant staph aureus pneumonia. Most likely due to aspiration but it is impossible to know for sure. The patient was succ essfully extubated but has required BiPAP. Now that he is comfort measures only I will discontinue the BiPAP and have aggressive PRN medications available for pain, agitation or air hunger. (3) Aspiration pneumonia Is this a current diagnosis for this admission?: Yes Plan: 04/09/2019-successfully treated with several courses of antibiotic therapy. Methicillin-resistant staph aureus was isolated. (4) Hypernatremia Is this a current diagnosis for this admission?: Yes Plan: 04/09/2019-resolved (5) COPD (chronic obstructive pulmonary disease) Qualifiers: Emphysema type: unspecified Is this a current diagnosis for this admission?: Yes Plan: 04/09/2019-the patient was getting nebulizer treatments but now that he is comfort care measures we will discontinue the breathing treatments as well as any other medications. (6) Hypokalemia Is this a current diagnosis for this admission?: Yes Plan: 04/09/2019-last serum sodium was slightly under the lower limit normal. The patient is now comfort measures and so no further laboratory studies will be drawn. (7) New onset atrial fibrillation Is this a current diagnosis for this admission?: Yes Plan: The patient was on several medications to achieve good rate control however with the change in status to comfort care measures there are no cardiac medications scheduled. (8) Pleural effusion Is this a current diagnosis for this admission?: Yes Plan: Patient is currently comfort measures only and therefore no active treatment and certainly no thoracentesis (9) Acute kidney failure Qualifiers: Acute renal failure type: unspecified Qualified Code(s): N17.9 - Acute kidney failure, unspecified Is this a current diagnosis for this admission?: Yes Plan: 04/09/2019-resolved (10) Hypertension Qualifiers: Hypertension type: essential hypertension Qualified Code(s): I10 - Essential (primary) hypertension Is this a current diagnosis for this admission?: Yes Plan: 04/09/2019-as the patient is comfort care there will be no further medication titration for hypertension. - Time Time Spent with patient: 15-24 minutes Medications reviewed and adjusted accordingly: Yes Anticipated discharge: Hospice
[2019-04-09 21:12] VITALS: BP 147/100
[2019-04-09] MEDS: MORPHINE SULFATE 10 MG/ML INJ IV PRN (21:48)
[2019-04-10] MEDS: MORPHINE SULFATE 10 MG/ML INJ IV PRN ×2 (01:35→04:17)
[2019-04-10] MEDS: LORAZEPAM INJ 2 MG/1 ML VIAL IV PRN ×2 (01:36→04:18)
--- NOTE | 2019-04-12 15:56 | Death Summary ---
Summary Date : 04/10/19 Time of :: 10:35 Autopsy: No Resuscitation Status: Comfort Measures Only - Final Diagnosis (1) Encephalopathy Is this a current diagnosis for this admission?: Yes (2) Acute hypoxemic respiratory failure Is this a current diagnosis for this admission?: Yes (3) Aspiration pneumonia Is this a current diagnosis for this admission?: Yes (4) Hypernatremia Is this a current diagnosis for this admission?: Yes (5) COPD (chronic obstructive pulmonary disease) Is this a current diagnosis for this admission?: Yes (6) Hypokalemia Is this a current diagnosis for this admission?: Yes (7) New onset atrial fibrillation Is this a current diagnosis for this admission?: Yes (8) Pleural effusion Is this a current diagnosis for this admission?: Yes (9) Acute kidney failure Is this a current diagnosis for this admission?: Yes (10) Hypertension Is this a current diagnosis for this admission?: Yes Hospital Course:: Mr. Roper had a very complex hospital course. He presented with acute encephalopathy secondary to sepsis. Sepsis was from pneumonia. He was intubated and spent several days in the intensive care unit. He was extubated and returned to the medical floor. Subsequently he declined and needed to be reintubated. He then spent several weeks in the intensive care unit. His sputum culture was positive for methicillin-resistant staph aureus and subsequently Yen. He experienced atrial fibrillation with rapid ventricular response as well as hypotension requiring pressor therapy. It was a challenge to wean the patient. He finally was extubated but never improved from a cognitive standpoint. The patient could not be weaned from BiPAP. With all of his comorbidities including his history of heavy alcohol use palliative care works consulted. It was decided that the patient would not recover from this episode. He was made comfort measures only. Within 1 hour the patient . Cause of was felt to be respiratory failure secondary to sepsis which was caused by pneumonia. Multiple other comorbidities contributing to the but not responsible include atrial fibrillation, hypertension, alcohol and tobacco use.
== END 2019-04-10 13:50 | DRG 640 ==
LOC: ER 12:49 → OBSVTOIN 15:52 → EH 15:52 → INTOOBSV 15:52 → ICU 18:40 → 4N 03-21 22:39 → 3N 03-22 08:39 → 3W 03-24 17:26 → ICU 03-27 12:00 → 3W 04-08 16:10
PROVIDERS: ADMIT Family Medicine; ATTEND Family Medicine
PROC: 02HV33Z Insertion of Infusion Device into Superior Vena Cava, Percutaneous Approach (ICD-10-PCS; 2019-03-15)
PROC: 5A09457 Assistance with Respiratory Ventilation, 24-96 Consecutive Hours, Continuous Positive Airway Pressure (ICD-10-PCS; 2019-03-16)
PROC: 5A1945Z Respiratory Ventilation, 24-96 Consecutive Hours (ICD-10-PCS; 2019-03-17)
PROC: 0BH17EZ Insertion of Endotracheal Airway into Trachea, Via Natural or Artificial Opening (ICD-10-PCS; 2019-03-17)
PROC: 30233N1 Transfusion of Nonautologous Red Blood Cells into Peripheral Vein, Percutaneous Approach (ICD-10-PCS; 2019-03-17)
PROC: 5A09557 Assistance with Respiratory Ventilation, Greater than 96 Consecutive Hours, Continuous Positive Airway Pressure (ICD-10-PCS; 2019-03-20)
PROC: 5A1955Z Respiratory Ventilation, Greater than 96 Consecutive Hours (ICD-10-PCS; principal; 2019-03-27)
PROC: 0BH17EZ Insertion of Endotracheal Airway into Trachea, Via Natural or Artificial Opening (ICD-10-PCS; 2019-03-27)
PROC: 5A09457 Assistance with Respiratory Ventilation, 24-96 Consecutive Hours, Continuous Positive Airway Pressure (ICD-10-PCS; 2019-04-07)
DX: E87.1 Hypo-osmolality and hyponatremia (principal); J96.01 Acute respiratory failure with hypoxia; J69.0 Pneumonitis due to inhalation of food and vomit; N17.9 Acute kidney failure, unspecified; F10.231 Alcohol dependence with withdrawal delirium; I50.32 Chronic diastolic (congestive) heart failure; E44.0 Moderate protein-calorie malnutrition; E87.0 Hyperosmolality and hypernatremia; Z78.1 Physical restraint status; E87.6 Hypokalemia; I48.91 Unspecified atrial fibrillation; B95.62 Methicillin resistant Staphylococcus aureus infection as the cause of diseases classified elsewhere; F32.9 Major depressive disorder, single episode, unspecified; F17.210 Nicotine dependence, cigarettes, uncomplicated; D50.8 Other iron deficiency anemias; J42 Unspecified chronic bronchitis; I11.0 Hypertensive heart disease with heart failure; T50.1X5A Adverse effect of loop [high-ceiling] diuretics, initial encounter; E86.0 Dehydration; R19.7 Diarrhea, unspecified; E87.4 Mixed disorder of acid-base balance; Z51.5 Encounter for palliative care; Z79.899 Other long term (current) drug therapy; Z82.49 Family history of ischemic heart disease and other diseases of the circulatory system; Z87.891 Personal history of nicotine dependence
CPT/HCPCS: 31500; 36415; 36430; 36600; 70450; 70496; 70498; 71045; 71250; 74018; 80048; 80053; 80307; 81001; 82140; 82150; 82272; 82533; 82550; 82553; 82607; 82728; 82746; 82803; 82962; 83540; 83550; 83605; 83690; 83735; 83880; 83930; 83935; 84100; 84132; 84300; 84443; 84484; 84550; 85025; 85027; 85045; 85610; 85730; 86850; 86900; 86901; 86920; 87040; 87045; 87070; 87077; 87186; 87205; 87493; 89055; 93005; 93010; 93306; 94002; 94003; 94640; 94660; 94799; 95819; 96360; 99285; B4155; C1751; J0330; J0360; J0692; J0696; J1439; J1642; J1644; J1815; J1940; J2020; J2060; J2270; J2543; J2704; J2765; J2920; J2930; J2997; J3230; J3360; J3370; J3475; J3480; J3490; J7030; J7040; J7042; J7050; J7060; J7120; J7614; P9016; S0164